=== PATIENT | female | born 1950 | race Caucasian/White ===

== ENCOUNTER → 2018-03-04 11:09 | Outpatient (CLI) | payer MEDICARE, OTHER, SELFPAY ==
--- NOTE | 2018-03-04 11:11 | DI.MG.S_ITS ---
BILATERAL DIGITAL SCREENING MAMMOGRAM 3D/2D WITH CAD: 03/04/2018 CLINICAL: Routine screening. Family history of breast cancer. Comparison is made to exams dated: 01/08/2017 mammogram, 12/29/2015 mammogram, and 12/02/2014 mammogram - [facility]. There are scattered fibroglandular elements in both breasts. Current study was also evaluated with a Computer Aided Detection (CAD) system. There is a mass in the right breast lower inner aspect middle depth. There is architectural distortion associated with the mass. No other significant masses, calcifications, or other findings are seen in either breast. IMPRESSION: INCOMPLETE: NEEDS ADDITIONAL IMAGING EVALUATION The mass with architectural distortion in the right breast is indeterminate. Additional views with possible ultrasound are recommended. This exam was interpreted at Station ID: [id number]. NOTE: For mammograms, a report in lay terms will be sent to the patient. Approximately 15% of breast malignancies will not be visualized mammographically. In the management of a palpable breast mass, a negative mammogram must not discourage biopsy of a clinically suspicious lesion. Electronically Signed By: Garrett Navarro M.D. ecl/:03/04/2018 23:29:15 letter sent: Additional Imaging Needed ACR BI-RADS Category 0: Incomplete [id number]
== END ==
PROVIDERS: Family Provider Family Medicine; PCP Family Medicine; Visit Provider Family Medicine
DX: Z12.31 Encounter for screening mammogram for malignant neoplasm of breast (principal); Z80.3 Family history of malignant neoplasm of breast
CPT/HCPCS: 77063; 77067

== ENCOUNTER → 2018-03-13 09:09 | Outpatient (CLI) | payer MEDICARE, OTHER, SELFPAY ==
[2018-03-13 10:03] LABS: Add Manual Diff / Slide Review NO; Basophils Percent Auto 0.4 % (0-2); Eosinophils Percent Auto 3.8 % (2-4); Hematocrit 37.5 % (36-46); Hemoglobin 12.9 g/dL (12.0-16.0); Lymphocytes Percent Auto 16.2 % (25-40); Mean Corpuscular HGB Conc 34.4 % (30-36); Mean Corpuscular Hemoglobin 31.8 PG (26-34); Mean Corpuscular Volume 92.6 fL (80-100); Monocytes Percent Auto 7.8 % (3-14); Neutrophils Absolute Auto 6500 /uL (3000-5900); Neutrophils Percent Auto 71.8 % (50-75); Platelet Count 199 X10^3/uL (150-400); Red Blood Cell Count 4.05 X10^6/uL (4.0-5.2); Red Cell Distribution Width 13.4 % (11.6-14.8); White Blood Cell Count 9.1 X10^3/uL (4.5-11.0)
[2018-03-13 10:10] LABS: Appearance Urine UA CLEAR; Bilirubin Urine UA NEGATIVE (NEGATIVE); Color Urine UA YELLOW; Glucose Urine UA NEGATIVE (Normal); Ketones Urine UA NEGATIVE (NEGATIVE); Leukocyte Esterase Urine UA 1+ (NEGATIVE); Nitrite Urine UA Negative (Negative); Occult Blood Urine UA NEGATIVE (Negative); Protein Urine UA NEGATIVE (Negative); Urobilinogen Urine UA 0.2 E.U./dL (0.2); pH Urine UA 5.5 (4.5-8.0)
[2018-03-13 10:12] LABS: Bacteria Urine None Seen; RBC Urine None Seen (0-5/HPF)
[2018-03-13 10:17] LABS: Culture Indicated Urine Cult Not Indicated; Squamous Epithelial Cell Urine 1-5 /HPF; WBC Urine 0-1/HPF (0-5/HPF)
[2018-03-13 10:51] LABS: Alanine Aminotransferase 25 IU/L (9-52); Albumin 4.3 g/dL (3.5-5.0); Albumin Globulin Ratio 1.4 (1.0-2.8); Alkaline Phosphatase 51 U/L (38-126); Aspartate Aminotransferase 24 IU/L (14-36); Bilirubin Total 0.8 mg/dL (0.2-1.3); Blood Urea Nitrogen 35 mg/dL (7-17); Calcium 9.4 mg/dL (8.4-10.2); Carbon Dioxide 28 mmol/L (22-32); Chloride 101 mmol/L (98-107); Cholesterol 224 mg/dL (140-199); Estimated Glomerular Filt Rate 55.1 mL/min (>60); Glucose 120 mg/dL (80-110); HDL Cholesterol 53 mg/dL (40-60); HEMOLYSIS < 15 (0-50); LDL Cholesterol Calculated 150 mg/dL (<100); Potassium 4.6 mmol/L (3.4-5.1); Sodium 140 mmol/L (137-145); Total Protein 7.3 g/dL (6.3-8.2); Triglycerides 106 mg/dL (35-150)
[2018-03-13 11:22] LABS: Thyroid Stimulating Hormone 2.24 uIU/mL (0.47-4.68)
== END ==
PROVIDERS: PCP Family Medicine; Visit Provider Family Medicine
DX: I10 Essential (primary) hypertension (principal); Z51.81 Encounter for therapeutic drug level monitoring
CPT/HCPCS: 36415; 80053; 80061; 81003; 81015; 84443; 85025

== ENCOUNTER → 2018-03-26 13:17 | Outpatient (CLI) | payer MEDICARE, OTHER, SELFPAY ==
--- NOTE | 2018-03-26 13:22 | DI.MG.S_ITS ---
UNILATERAL RIGHT DIGITAL DIAGNOSTIC MAMMOGRAM 3D/2D WITH ADDITIONAL VIEWS: 03/26/2018 CLINICAL: Additional evaluation requested from prior study. Comparison is made to exams dated: 03/04/2018 mammogram, 01/08/2017 mammogram, and 12/29/2015 mammogram - [facility]. There are scattered fibroglandular elements in right breast. There is 1.4 cm oval equal density mass with a spiculated margin in the right breast at 6 o'clock anterior depth. No other significant masses or calcifications are seen in the breast. IMPRESSION: INCOMPLETE: NEEDS ADDITIONAL IMAGING EVALUATION The 1.4 cm oval equal density mass in the right breast is indeterminate. An ultrasound is recommended. This exam was interpreted at Station ID: [id number]. NOTE: For mammograms, a report in lay terms will be sent to the patient. Approximately 15% of breast malignancies will not be visualized mammographically. In the management of a palpable breast mass, a negative mammogram must not discourage biopsy of a clinically suspicious lesion. Electronically Signed By: Jarad roberson/norma:03/26/2018 14:15:46 letter sent: Need Ultrasound ACR BI-RADS Category 0: Incomplete [id number]
--- NOTE | 2018-03-26 13:22 | DI.US.S_ITS ---
LIMITED ULTRASOUND OF RIGHT BREAST AND AXILLA: 03/26/2018 CLINICAL: Patient returns today to evaluate a density in the right breast. Comparison is made to exams dated: 03/26/2018 mammogram, 03/04/2018 mammogram, 01/08/2017 mammogram, 12/29/2015 mammogram, and 12/02/2014 mammogram - [facility]. Color flow and real-time ultrasound of the right breast 6 o'clock, and axilla regions were performed on the areas of interest. There is 0.7 cm x 0.5 cm x 1.1 cm oval mass with a spiculated margin in the right breast at 6 o'clock anterior depth. This oval mass is hypoechoic with a hyperechoic rim and posterior acoustic shadowing. This correlates with mammography findings. Color flow imaging demonstrates that there is no vascularity present. No abnormalities were seen sonographically in the right axilla. IMPRESSION: HIGHLY SUGGESTIVE OF MALIGNANCY The 0.7 cm x 0.5 cm x 1.1 cm oval mass in the right breast is highly suggestive of malignancy. An ultrasound guided biopsy is recommended. The findings were discussed with the patient at the conclusion of the study by Dr. Moody. This exam was interpreted at Station ID: [id number]. Electronically Signed By: Jarad roberson/:03/27/2018 07:09:29 Entry: - 03/27/2018 07:09:29 letter sent: Biopsy Required Ultrasound BI-RADS: 5 Highly suggestive of malignancy
== END ==
PROVIDERS: PCP Family Medicine; Visit Provider Family Medicine
DX: R92.8 Other abnormal and inconclusive findings on diagnostic imaging of breast (principal); N63.10 Unspecified lump in the right breast, unspecified quadrant
CPT/HCPCS: 76642; 77065; G0279

== ENCOUNTER → 2018-04-08 13:34 | Outpatient (CLI) | payer MEDICARE, OTHER, SELFPAY ==
--- NOTE | 2018-04-08 | PATH_ITS ---
[facility] Accession Number: [id number] . 01 Material submitted: . RIGHT BREAST MASS . 01 Clinical history: . A: RIGHT BREAST MASS 5:30 3CM FROM NIPPLE . 02 Diagnosis: Right Breast Needle Core Biopsy, 5:30, 3 cm from the Nipple: Infiltrating ductal carcinoma with the following features: 1. Tumor grade ([place]) Grade 1 (score 4 of 9). Nuclear grade: Intermediate (score 2 of 3). Mitotic score: Low (1 of 3). Tubular differentiation: Prominent (score 1 of 3). 2. Largest single linear extent of tumor: 0.8 cm with all tissue cores involved with tumor. 3. Ductal carcinoma in situ: Not identified. 4. Lymph/vascular invasion: Not identified. 5. Hormone receptor studies: Ordered by immunohistochemistry, to be reported by addendum. . . COMMENT: Case reviewed by Dr. Jean-Pierre Whyte who agrees with the diagnosis. . The results of this evaluation are telephoned to the office of Dr. William Moody at 2:30 p.m. on 04/09/2018. MRV/04/09/2018 . 02 Electronically signed: . Josh Bravo MD, Pathologist NPI- [id number] . 01 Gross description: . Received one formalin-filled container labeled with the patient's name and designated right breast mass 5:30, 3 cm from nipple. The specimen is received with a plastic filter in the container, sample loose in container, and consists of multiple dark yellow-campbell portions of tissue which aggregate to 1.0 x 0.6 x 0.3 cm. The specimen is filtered, wrapped, and entirely submitted in one cassette. Collection date: 04/08/2018. Collection time per container: 14:45. Total fixation time: 12 hours, up to 24. ([id number]) /FRR . 02 Pathologist provided ICD-10: C50.311 . 02 CPT . 087212 Performed at: 01 [facility] [address] [id number] MD Jarad Montoya MD Phone: [phone] Performed at: 02 [facility] [address] [place] [id number] MD Familia Whyte MD Phone: [phone]
--- NOTE | 2018-04-08 13:36 | DI.MG.S_ITS ---
UNILATERAL RIGHT DIGITAL DIAGNOSTIC MAMMOGRAM 3D/2D POST-NEEDLE BIOPSY: 04/08/2018 CLINICAL: Post clip placement. Comparison is made to exams dated: 03/26/2018 mammogram and 03/04/2018 mammogram - [facility]. There are scattered fibroglandular elements in right breast. There is a marker clip in the appropriate position in the right breast at 5 o'clock anterior depth. This marker clip placement is at the biopsy site. IMPRESSION: POST PROCEDURE MAMMOGRAM FOR MARKER PLACEMENT There was a successful marker clip placement in the right breast anterior depth. This exam was interpreted at Station ID: [id number]. NOTE: For mammograms, a report in lay terms will be sent to the patient. Approximately 15% of breast malignancies will not be visualized mammographically. In the management of a palpable breast mass, a negative mammogram must not discourage biopsy of a clinically suspicious lesion. Electronically Signed By: William Moody M.D. sdh/:04/08/2018 17:09:15 ACR BI-RADS Category Post-procedure mammogram for marker placement
--- NOTE | 2018-04-08 13:36 | DI.US.S_ITS ---
ULTRASOUND GUIDED BIOPSY RIGHT BREAST USING VACUUM DEVICE WITH MARKING DEVICE INSERTED AND POST MAMMOGRAPHIC IMAGIN04/08/2018 CLINICAL: Right breast mass. PATIENT CONSENT: Risks (minor bleeding, infection, vasovagal reaction and repeat procedure), benefits and alternatives were explained to the patient and written informed consent was obtained. Correlation is made to exams dated: 03/26/2018 ultrasound, 03/26/2018 mammogram, and 03/04/2018 mammogram - [facility]. An ultrasound guided biopsy using real-time ultrasound was performed for the concerning circumscribed lobulated solid mass located in the right breast at 6 o'clock middle depth. This was described on the previous ultrasound report. The skin was prepped in the usual manner. Local anesthetic was administered to the access site. A skin samantha was made in the breast. The abnormality was approached from the lateral aspect. A 13 gauge biopsy needle was placed adjacent to the abnormality under ultrasound guidance. Once the needle was documented to be in the correct location, five specimens were obtained using the Mammotome biopsy system. The patient received additional local anesthetic during the procedure. A clip was inserted into the biopsy cavity. A sterile dressing was applied to the access site. Post procedure mammographic imaging demonstrates the location device at the targeted area. The specimens were sent to the laboratory for pathological analysis. IMPRESSION: ULTRASOUND GUIDED BIOPSY MALIGNANT Ultrasound guided biopsy of the solid mass in the right breast at 6 o'clock middle depth was successful. Pathology indicates malignant invasive ductal carcinoma (ID). Pathology results are concordant with imaging findings. This exam was interpreted at Station ID: [id number]. michelle Angel M.D., M.D./norma:04/16/2018 11:44:58
== END ==
PROVIDERS: Family Provider Family Medicine; PCP Family Medicine; Visit Provider Family Medicine
DX: C50.311 Malignant neoplasm of lower-inner quadrant of right female breast (principal)
CPT/HCPCS: 19083; 77065; 88305; 88341; 88342; G0279

== ENCOUNTER 2018-05-27 07:36 | Day surgery (SDC) | payer MEDICARE, OTHER, SELFPAY ==
[2018-05-21 14:25] VITALS: BMI 38.9
[2018-05-27] VITALS (10 sets, daily range): BP systolic 102–133; BP diastolic 52–71; PULSE 54–66; RESP 9–16; TEMP 35.9–36.3; O2SAT 84–98; BMI 38.9
--- NOTE | 2018-05-27 | DI.US.S_ITS ---
WIRE LOCALIZATION RIGHT BREAST: 05/27/2018 CLINICAL: Pre-op wire localization. Correlation is made to exams dated: 04/08/2018 ultrasound biopsy, 04/08/2018 mammogram, 03/26/2018 ultrasound, 03/26/2018 mammogram, and 03/04/2018 mammogram - [facility]. A wire localization was performed for the marker clip located in the right breast at 5 o'clock posterior depth. The skin was prepped in the usual manner. Local anesthetic was administered to the access site. The localization was approached from the lateral aspect. A wire was inserted into the targeted area. IMPRESSION: WIRE LOCALIZATION Wire localization for the marker clip in the right breast at 5 o'clock posterior depth was successful. A specimen radiograph is recommended. This exam was interpreted at Station ID: [id number]. Willie merritt/:05/27/2018 13:57:46
--- NOTE | 2018-05-27 | DI.MG.S_ITS ---
SPECIMEN RIGHT BREAST: 05/27/2018 CLINICAL: Breast cancer. Correlation is made to exams dated: 05/27/2018 mammogram, 04/08/2018 ultrasound biopsy, 04/08/2018 mammogram, and 03/26/2018 mammogram - [facility]. A surgical specimen was imaged for the previous biopsy site located in the right breast at 6 o'clock anterior depth. IMPRESSION: SPECIMEN The imaged specimen includes a biopsy clip and the distal portion of the localization wire. Waiting for pathology results. A final report will be issued when these become available. This exam was interpreted at Station ID: [id number]. Willie merritt/:05/27/2018 17:32:53
--- NOTE | 2018-05-27 | PATH_ITS ---
[facility] Accession Number: [id number] . 01 Material submitted: . PART A: RIGHT AXILLARY SENTINEL NODE #1 PART B: RIGHT AXILLARY SENTINEL NODE #2 PART C: RIGHT BREAST . 02 Diagnosis: A-B: Right Axillary [place] Lymph Node, #1, #2, Excisions: 3 [place] lymph nodes negative for metastatic carcinoma. . C. Right Breast, Excision: Invasive ductal carcinoma. Please see CAP summary below. . CAP CANCER CASE SUMMARY PROCEDURE: Excision SPECIMEN LATERALITY: Right TUMOR SITE: 5:30 O'Clock . TUMOR SIZE: 1.5 CM HISTOLOGIC TYPE: Invasive carcinoma of no special type (ductal, not otherwise specified) HISTOLOGIC GRADE: (ARMAAN HISTOLOGIC SCORE) Glandular/Tubular differentiation: Score 2 Nuclear Pleomorphism: Score 2 Mitotic Rate: Score 1 Overall Grade: Grade 1 TUMOR FOCALITY: Single focus of invasive carcinoma. DUCTAL CARCINOMA IN SITU: Present, Positive for extensive intraductal component (EIC) -Size (Extent) of DCIS: 1.8 CM -Architectural patterns: Cribriform, [place] -Nuclear grade: Grade 2-3 (Intermediate to high grade) -Necrosis: Present, focal and central LOBULAR CARCINOMA IN SITU: No LCIS in specimen. . MARGINS Invasive Carcinoma Margins: Uninvolved by invasive carcinoma. -Distance from Closest Margin: 1 MM Anterior. DCIS Margins: Uninvolved by DCIS -Distance from Closest Margin: 0.5 MM Posterior, 1 MM Anterior. . REGIONAL LYMPH NODES: Uninvolved by Tumor Cells Number of Lymph Nodes Examined: 3 Number of [place] Lymph Nodes Examined: 3 . TREATMENT EFFECT: No known presurgical therapy. . LYMPHOVASCULAR INVASION: Not Identified. DERMAL LYMPHOVASCULAR INVASION: No skin present. . PATHOLOGIC STAGE CLASSIFICATION (pTNM, AJCC 8th Edition) Primary Tumor: pT1c Regional Lymph Nodes: pN0(sn) . ADDITIONAL PATHOLOGIC FINDINGS: Biopsy site changes. . MICROCALCIFICATIONS: Present in association with DCIS and invasive carcinoma. . . ANCILLARY STUDIES: Biomarkers Performed Previously on Case: [id number] -Estrogen Receptor (ER) Status: Positive, moderate to strong, >95% of cells. -Progesterone Receptor (PgR) Status: Positive, moderate to strong, 15-20% of cells. -HER2 (by immunohistochemistry): Positive (Score 3+). [facility]05/30/2018 . 02 Comment: The size of the invasive carcinoma is based on its presence across 5 tissue slices, each 0.3 cm thick. The size of the DCIS is based on its presence across 6 tissue slices, each 0.3 cm thick. . 02 Electronically signed: . Cyndee Garcia MD, Pathologist NPI- [id number] . 01 Gross description: . (A) Received in formalin, labeled R axillary sentinel node #1, count [id number], are multiple pieces of adipose tissue (4.6 x 2.4 x 0.5 cm in aggregate) containing a lymph node (3.0 x 1.8 x 0.4 cm). The lymph node is serially sectioned and entirely submitted in cassettes A1-A3. The remaining adipose tissue is entirely submitted in cassette A4. (B) Received in formalin, labeled R axillary sentinel node #2, count [id number], is a piece of adipose tissue (4.2 x 1.4 x 0.2 cm) containing two lymph nodes (0.8 x 0.6 x 0.2 cm and 1.6 x 0.7 x 0.6 cm). The lymph nodes are serially sectioned and entirely submitted in cassettes B1 and B2, respectively. The remaining adipose tissue is entirely submitted in cassette B3. (C) Received in formalin, labeled R breast lumpectomy, SS. deep, long s. lateral, short s. superior, is a piece of breast tissue (2.5 cm AP, 7.7 cm SI, 6.2 cm ML) with no overlying skin. The specimen is oriented with three black sutures (double-deep, long-lateral, short-superior). A localization wire enters the superior central anterior aspect. The specimen is serially sectioned SI into twenty-two slices with the superior and inferior resection margins as slices #1 and #22, respectively. A sarmiento-white firm irregular mass (1.5 x 1.2 x 0.9 cm) involving slices #4 - #7 is less than 0.1 cm from the anterior, 1.5 cm from the posterior, 0.9 cm from the superior, 5.1 cm from the inferior, 2.1 cm from the medial, and 2.2 cm from the lateral resection margins. The localization wire ends adjacent to the mass within slice #7. A biopsy marker is identified within the mass in slice #5. A sarmiento-white firm nodule (0.2 x 0.1 x 0.1 cm) is identified within slice #3 less than 0.1 cm from the posterior resection margin. A sarmiento-white firm irregular fibrous area (0.7 x 0.6 x 0.5 cm) is identified within slices #4-#6 1.8 cm from the mass. A focally hemorrhagic area (2.5 x 1.8 x 0.7 cm) is identified adjacent to the mass within slices #4-#7 and continues on and involves slices #8 and #9. The remaining breast tissue is fatty with no other nodules, masses or lesions identified. Ink code: purple-anterior; yellow-posterior; black-superior; orange- inferior; green-medial; blue-lateral. Section code: (C1) superior resection margin, perpendicularly sectioned, inbound sales representative; (C2-C3) slice #3, tissue adjacent to mass, bisected and entirely submitted ML; (C4-C5) slice #4, bisected and entirely submitted ML; (C6-C8) slice #5, tissue containing biopsy marker, trisected and entirely submitted ML; (C9-C10) slice #6, trisected ML, lateral two-thirds submitted; (C11-C13) slice #7, tissue involving the end of the localization wire, trisected and entirely submitted ML; (C14-C16) slice #8, tissue adjacent to mass, trisected and entirely submitted ML; (C17) slice #9, trisected ML, middle third submitted; (C18) slice #15, bisected ML, lateral half submitted; (C19) inferior resection margin, perpendicularly sectioned, entirely submitted. Note: The specimen was reviewed by Dr. Maria Fernanda Bauer. Additional sections: (C20) remaining superior resection margin, perpendicularly sectioned, superior resection margin is now entirely submitted; (C21-C22) slice #2, bisected and entirely submitted ML; (C23, C24) slice #9, remaining tissue submitted ML, slice #9 is now entirely submitted. (JM:[id number]) . . Note: Approximate total fixation time in formalin for all specimens-33 hours and 30 minutes calculated using a collection date of 05/27/2018 with no collection time given. (JM:cmc80 [id number]) /[facility] . 02 Pathologist provided ICD-10: C50.911 . 02 CPT . 266370, 225354, 369766 Performed at: 01 [facility] [address] [address] [address], [place], [place] [id number] MD Jarad Montoya MD Phone: [phone] Performed at: 02 [facility] [address] [place], [place] [id number] MD Cyndee Garcia MD Phone: [phone]
--- NOTE | 2018-05-27 | DI.RAD.S_ITS ---
PROCEDURE: XR CHEST 1V INDICATIONS: PORT A CATH TECHNIQUE: One view of the chest was acquired. COMPARISON: None. FINDINGS: Surgical changes and devices: Port-A-Cath projects to the atriocaval junction via a left subclavian approach. Presence of the T-tube noted. Lungs and pleura: No pleural effusions or pneumothorax. Lungs are clear. Mediastinum: Mediastinal contours appear normal. Heart size is normal. Bones and chest wall: No suspicious bony lesions. Overlying soft tissues appear unremarkable. IMPRESSION: Tip of Port-A-Cath projects to the atriocaval junction. Dictated by: Savana Waite MD, PhD on 05/27/2018 at 12:01 Approved by: Savana Waite MD, PhD on 05/27/2018 at 12:02
--- NOTE | 2018-05-27 | DI.RAD.S_ITS ---
PROCEDURE: XR CHEST 1V INDICATIONS: PORT A CATH PLACEMENT TECHNIQUE: One view of the chest was acquired. COMPARISON: [facility], , XR CHEST 1V, 05/27/2018, 11:16. FINDINGS: Surgical changes and devices: Port-A-Cath projects to the distal SVC via a left subclavian approach. Lungs and pleura: No pleural effusions or pneumothorax. Lungs are clear. Mediastinum: Mediastinal contours appear normal. Heart size is enlarged. Bones and chest wall: No suspicious bony lesions. Overlying soft tissues appear unremarkable. IMPRESSION: Status post left chest wall Port-A-Cath placement. Dictated by: Savana Waite MD, PhD on 05/27/2018 at 14:34 Approved by: Savana Waite MD, PhD on 05/27/2018 at 14:36
[2018-05-27] MEDS: LACTATED RINGERS 1,000 ML 100 ML IV ×2 (07:59→12:43)
--- NOTE | 2018-05-27 08:00 | DI.NM.S_ITS ---
PROCEDURE: NM SENTINEL NODE W IMAGING RADIOPHARMACEUTICAL: 0.5-1.0 mCi Millipore filtered Tc-99m sulfur colloid. INDICATIONS: localization of sentinel node TECHNIQUE: The area around the nipple was prepped and draped in a sterile fashion. Tc-99m sulfur colloid was injected intra-dermally in the outer edge of the areola in the right breast. Images were obtained subsequently. A body contour outline was obtained. FINDINGS: There is/are 3 lymph node(s) in the ipsilateral axilla IMPRESSION: Administration of radiotracer into the right breast periareolar region for intra-operative sentinel lymph node localization. Dictated by: Willie Webster M.D. on 05/27/2018 at 13:06 Approved by: Willie Webster M.D. on 05/27/2018 at 13:08
--- NOTE | 2018-05-27 09:28 | DI.MG.S_ITS ---
UNILATERAL RIGHT DIGITAL DIAGNOSTIC MAMMOGRAM: 05/27/2018 CLINICAL: Breast cancer. Comparison is made to exams dated: 04/08/2018 ultrasound biopsy, 04/08/2018 mammogram, 03/26/2018 mammogram, and 03/04/2018 mammogram - [facility]. There are scattered fibroglandular elements in right breast. There is a wire in the appropriate position in the right breast at 6 o'clock anterior depth. There is a biopsy clip associated with the wire. IMPRESSION: POST PROCEDURE MAMMOGRAM FOR MARKER PLACEMENT Successful wire localization of marker clip This exam was interpreted at Station ID: [id number]. NOTE: For mammograms, a report in lay terms will be sent to the patient. Approximately 15% of breast malignancies will not be visualized mammographically. In the management of a palpable breast mass, a negative mammogram must not discourage biopsy of a clinically suspicious lesion. Electronically Signed By: Willie merritt/:05/27/2018 17:29:42 ACR BI-RADS Category Post-procedure mammogram for marker placement
--- NOTE | 2018-05-27 10:06 | PM.PREOP ---
Pre-operative Note Interval Note Pre-op Check: Yes History & Physical Reviewed by Physician and Yes Exam Performed Changes: No H&P completed within 30 days and has changed as indicated here:: Patient seen and examined in preoperative area. She has been marked appropriately for surgery. Her needle localization and sentinel lymph node localization studies have been reviewed personally. Proceed with port placement, right breast lumpectomy, and right axillary sentinel lymph node biopsy as planned today.
[2018-05-27] MEDS: CEFAZOLIN 2 GM/100 ML FROZ.PIGGY IV (10:30)
--- NOTE | 2018-05-27 11:03 | SUR.OPER ---
Supine on padded OR bed, head on pillow, right arm secured on padded arm boards at <90 degrees abduction, left arm is tucked, towel roll between the shoulders, legs uncrossed, safety belt at thigh, tape over blanket over lower legs.
[2018-05-27] MEDS: LIDOCAINE 1% 20 ML INJ INJ (11:23)
[2018-05-27] MEDS: LIDOCAINE 1% W/EPI INJ 20 ML INJ (11:23)
[2018-05-27] MEDS: BUPIVACAINE 0.5% (PF) VIAL 30 ML INJ (11:23)
--- NOTE | 2018-05-27 13:42 | PM.OP.1 ---
Operative Date/Time/Diagnoses Date of procedure: 05/27/18 Time of procedure: 13:42 Pre-op diagnosis: Right breast cancer Post-op diagnosis: same Procedure & Clinicians Procedure: 1. Insertion of tunneled central venous port device via left subclavian approach 2. Right axillary sentinel lymph node biopsy 3. Right breast wire localization lumpectomy Same procedure as scheduled: Yes Indications: 68-year-old female who presented with abnormal right mammogram. Needle biopsy confirmed invasive breast cancer. Features were noted to be aggressive type thereby necessitating chemotherapy. She requires long-term IV access for such treatment. In addition, it was recommended she undergo lumpectomy with right axillary sentinel lymph node biopsy for staging and treatment purposes. Surgeon: Bret Herrmann Click Yes if Unassisted: Yes Anesthesia Type: General Operative Notes Findings: 1. Port device in good position with tip in the superior vena cava under fluoroscopic guidance via left subclavian approach 2. Right breast lumpectomy specimen containing complete wire localization device and previously placed biopsy clip 3. Radioactive sentinel lymph nodes as below Specimens: 1. Right axillary sentinel lymph node 1 with total count of 29,232 2. Right axillary sentinel lymph node 2 with total count of 3390 3. Right breast lumpectomy Closure Type: primary Specimen(s): other (See above under findings) Implants & Drains: None Estimated Blood Loss (mL): 25 Blood products transfused: none Procedure in detail: After obtaining informed consent the patient was brought to the operating room placed supine on the table. Preoperatively she had undergone right breast wire localization procedure as well as right axillary lymphoscintigraphy per the radiology department. Please see their report for further details. Images were reviewed preoperatively. After satisfactory induction of anesthesia a SCOAP time-out was performed per standard protocol. I personally prepped and draped the patient in the usual sterile fashion taking great care to avoid dislodging the wire localization device in the right breast. Attention was initially turned to placement of the left Port-A-Cath device. Patient was placed in Trendelenburg position. Area was anesthetized with 1% lidocaine with 100,000 epinephrine for postoperative analgesia just below the left clavicle. Introducer needle was then placed percutaneously deep to the clavicle and the left subclavian vein was accessed on the 1st attempt. However, the guidewire would not thread even with fluoroscopic assistance. Therefore this was abandoned and a 2nd approach was employed whereby the left subclavian vein was again accessed successfully. A 0.035 inch glide wire was then introduced and was noted to thread easily into the right heart. Patient was returned supine and a transverse incision was created on the left chest wall with 15 scalpel blade several cm below the guidewire insertion site. Bovie was used to achieve hemostasis and carried the dissection down to the chest wall. Should note the patient is moderately obese and her body habitus necessitated a deeper dissection in order to find a stable position for the port device on the chest wall. Hemostasis was verified and the port was attached to the catheter with the locking mechanism and noted to flush easily with the straight Dumont needle using saline flush. Port was placed in the subcutaneous pocket and secured to the chest wall with interrupted 2 0 Prolene suture. Port was brought along the subcutaneous tunnel to exit at the guidewire insertion site using the tunneling device. Once again hemostasis was verified. Under fluoroscopic visualization the adequate length of the catheter was estimated and then cut at approximately 23 cm from the hub. Under sterile Seldinger technique using fluoroscopic visualization the venous dilator and sheath were placed over the wire into the superior vena cava. The dilator and wire were removed. Catheter was then threaded distally through the sheath and the sheath was removed. Catheter was noted to be in good position without any abnormal curvatures. Port was accessed with a straight Dumont needle under direct visualization and noted to aspirate and flush easily with saline. Wound was irrigated noted to be hemostatic. Three 0 Vicryl interrupted suture was then placed to reapproximate the subcutaneous tissue. Four 0 Monocryl suture was then placed at the skin incision at the guidewire insertion site and then used in a running subcuticular fashion to close the skin incision over the port itself. Straight Dumont needle was then used to access the port percutaneously, and once again the port aspirated and flushed easily. Port was accessed yet another time percutaneously with a straight Dumont needle and flushed with 2000 units of heparin. Dermal adhesive was placed over the incisions and this portion of the procedure was completed Attention was turned to the right axilla. Gamma probe was used to obtain radioactive counts and a skin incision was created transversely in an existing skin crease in the axilla with 10 scalpel blade. Bovie was used to achieve hemostasis and carried the dissection down to the subcutaneous tissue to the axillary fat pad. Exposure was achieved with the self-retaining retractor as well as Leal retractors. Again, the patient's body habitus made this somewhat of a technically demanding procedure as the gamma probe was used to guide sharp dissection with Metzenbaum scissors. [place] lymph nodes were found along the lateral chest wall as anticipated. Hemoclips were used to achieve hemostasis and control lymphatics. Lymph nodes were then removed, radioactive counts were taken as above, and specimens were sent for permanent section. After obtaining all radioactive lymph nodes there was no other significant radio activity in the axilla noted. Wound was irrigated noted to be hemostatic. Subcutaneous tissue was reapproximated with interrupted 3 0 Vicryl suture, and the skin was closed in a running subcuticular fashion with 4 0 Monocryl suture. Attention was then turned to the right breast lumpectomy. Curvilinear incision was designed and created with 10 scalpel blade just inferior to the areola. Incision was created midway between the border of the areola and the guidewire insertion site. The wire was actually relatively low in the lower outer quadrant region. Meticulous sharp dissection with Metzenbaum scissors was employed along the subcutaneous plane until the wire was encountered. Wire was secured to the underlying breast tissue with an Allis clamp. Wire was then brought subcutaneously to exit at the skin incision taking great care not to dislodge the device. Bovie was used to create hemostasis in and performed a generous lumpectomy down to just above the level of the chest wall along the deep margin. Once the specimen was liberated it was oriented then sent back to Radiology for examination. Again, findings are as above with the wire and clip noted to be within the specimen. Wound was irrigated and hemostasis achieved with the Bovie. Once hemostasis was verified the subcutaneous tissue was reapproximated with interrupted 3 0 Vicryl suture. Skin was closed in running subcuticular fashion with 4 Monocryl suture. Dermal adhesive was applied to the breast incision as well as the right axillary incision. Local anesthesia was also infiltrated into the areas for postoperative analgesia. Anesthesia was reversed and patient extubated in the operating room. She was taken recovery in stable condition. Postoperative chest x-ray is not immediately available since the portable devices are not functional at the moment. She will go to Radiology Department for such following recovery from anesthesia. Complications: none Condition: stable Disposition: PACU Plan for aftercare: 1. Discharge to home 2. Follow up in surgery Clinic in 2 weeks
== END 2018-05-27 16:20 | disposition home or self-care (01) ==
PROVIDERS: PCP Family Medicine; Visit Provider Surgery
PROC: (CPT 19301; principal; 2018-05-27 11:00)
PROC: (CPT 19301; 2018-05-27 11:00)
DX: C50.911 Malignant neoplasm of unspecified site of right female breast (principal); Z85.43 Personal history of malignant neoplasm of ovary; E78.5 Hyperlipidemia, unspecified; E66.9 Obesity, unspecified; I10 Essential (primary) hypertension; Z17.0 Estrogen receptor positive status [ER+]; Z45.2 Encounter for adjustment and management of vascular access device
CPT/HCPCS: 19301; 36561; 38500; 19285; 71045; 76000; 76098; 77065; 78195; 88307; A9541; C1788; J0690; J1100; J1644; J2405; J2704; J3010

== ENCOUNTER → 2018-06-11 10:38 | Outpatient (CLI) | payer MEDICARE, OTHER, SELFPAY ==
[2018-06-11 12:15] LABS: Specimen Label BRAC KIT
== END ==
PROVIDERS: PCP Family Medicine; Visit Provider Surgery
DX: Z13.79 Encounter for other screening for genetic and chromosomal anomalies (principal)
CPT/HCPCS: 36415

== ENCOUNTER → 2018-06-18 14:49 | Outpatient (CLI) | payer MEDICARE, OTHER, SELFPAY ==
--- NOTE | 2018-06-18 14:51 | DI.ECHO.S_ITS ---
[facility]---------+ [facility] +---------+ : : [address] : : : : [id number] : : : : Phone: [phone] : : [phone] +---------+ Echocardiogram Report + + :Name: ULISES BROWN Study Date: 06/18/2018 Height: 64 in : :[facility] Weight: 227 lb: : Gender: Female BSA: 2.1 m2 : :: 1950 Age: 68 yrs : :Reason For Study: malignant neoplasm : : Performed By: Bettie Collins : :Referring: ANGELIQUE KHANNA : + + Interpretation Summary The left ventricle is normal in size, wall thickness, and systolic function without any focal wall motion abnormalities with the ejection fraction grossly estimated to be 60-65%. Diastolic parameters suggest a relaxation abnormality of the left ventricle, consistent with probable normal filling pressures. The right ventricle is not well visualized but grossly appears normal in size with probable normal systolic function. Pulmonary artery pressures cannot be estimated because of the lack of a measurable TR jet velocity but the IVC suggests a CVP of around 3 mmHg. Both atria are normal in size. There is no significant valvular heart disease. The ascending aorta is mildly enlarged. There is no pericardial or pleural effusion. Procedure: A two-dimensional transthoracic echocardiogram with color flow and Doppler was performed. The study quality was technically adequate. There is no prior echocardiogram noted for this patient. Patient was having a hard time tolerating the exam. The heart rate ranged between 59-65 bpm during the study. Left Ventricle: The left ventricle is normal in size, wall thickness, and systolic function without any focal wall motion abnormalities. The ejection fraction is estimated to be 60-65%. Diastolic parameters suggest a relaxation abnormality of the left ventricle, consistent with probable normal filling pressures. Right Ventricle: The right ventricle is not well visualized. The right ventricle grossly appears normal in size with probable normal systolic function. Atria: Both atria are normal in size. There is no Doppler evidence for an interatrial shunt. Mitral Valve: There is mild mitral annular calcification. The mitral valve leaflets appear normal. There is no evidence of stenosis, fluttering, or prolapse. There is trace mitral regurgitation. Aortic Valve: The aortic valve is not well visualized. The aortic valve is grossly normal. The aortic valve opens well. No aortic regurgitation is present. Tricuspid Valve: The tricuspid valve is normal in structure and function. There is a trace or physiologic amount of tricuspid regurgitation. Pulmonary artery pressures cannot be estimated because of the lack of a measurable TR jet velocity but the IVC suggests a CVP of around 3 mmHg. Pulmonic Valve: The pulmonic valve is normal in structure and function. There is a trace or physiologic amount of pulmonic regurgitation. There is no significant valvular heart disease. Great Vessels: The aortic root is normal size. The ascending aorta is mildly enlarged. The aortic arch is normal in size. The pulmonary artery is normal size. The IVC is of normal diameter and collapses greater than 50% with a sniff. This suggests a low right atrial pressure of 3 mm Hg. Pericardium/ Pleura There is no pericardial effusion. There is no pleural effusion. MMode/2D Measurements & Calculations LVIDd: 5.1 cm LVOT diam: 2.1 cm EPSS: 0.48 cm Ao root diam: 2.9 cm IVSd: 0.94 cm asc Aorta Diam: 3.5 cm LVPWd: 0.77 cm LV zhang. diameter/BSA (cm/m^2): 2.5 LA A2 area: 24.4 cm2 RA long axis: 4.5 cm LA A4 area: 18.8 cm2 RA area: 14.1 cm2 LA length (vol): 6.0 cm RA vol: 37.4 ml LA vol: 65.0 ml RA : 18.1 ml/m2 LA vol index: 31.5 ml/m2 IVC diam: 1.4 cm RVD1 (basal): 3.8 cm TAPSE: 2.3 cm Doppler Measurements & Calculations Ao V2 max: 192.0 cm/sec LVOT Max Trevor: 130.5 cm/sec Ao V2 mean: 119.7 cm/sec LV V1 max P.8 mmHg Ao max P.7 mmHg LV V1 VTI: 28.2 cm Ao mean P.8 mmHg ZANDER(I,D): 2.6 cm2 Ao V2 VTI: 35.8 cm ZANDER(V,D): 2.2 cm2 sev ratio: 0.79 ZANDER indexed to BSA (cm^2/m^2): 1.3 MV E max trevor: 65.5 cm/sec MV P1/2t max trevor: 66.3 cm/sec MV A max trevor: 85.6 cm/sec MVA(P1/2t): 3.1 cm2 MV E/A: 0.77 Med Peak E' Trevor: 4.8 cm/sec E/E' med: 13.7 Lat Peak E' Trevor: 5.8 cm/sec E/E' lat: 11.4 E/e' average: 12.6 MV P1/2t: 71.5 msec SV(LVOT): 93.2 ml Reading Physician:YUDELKA
== END ==
PROVIDERS: Family Provider Family Medicine; PCP Family Medicine; Visit Provider Internal Medicine Hematology & Oncology
DX: C50.911 Malignant neoplasm of unspecified site of right female breast (principal); I77.810 Thoracic aortic ectasia
CPT/HCPCS: 93306

== ENCOUNTER → 2018-09-26 09:11 | Outpatient (CLI) | payer MEDICARE, OTHER, SELFPAY ==
--- NOTE | 2018-09-26 09:12 | DI.ECHO.S_ITS ---
[facility]---------+ [facility] +---------+ : : [address] : : : : [id number] : : : : Phone: [phone] : : [phone] +---------+ Echocardiogram Report + + :Name: ULISES BROWN Study Date: 09/26/2018 Height: 64 in : :[facility] Weight: 233 lb : : Gender: Female BSA: 2.1 m2 : :: 1950 Age: 68 yrs BP: 121/56 mmHg: :Reason For Study: Chemotherapy F/U (ICD Code V67.2) : :Ordering Physician: Lucila : :Maria Isabel Performed By: Kya Casas : :Referring: ANGELIQUE KHANNA : + + Interpretation Summary The left ventricle is mildly dilated. This is mildly increased compared to the previous study. The ejection fraction is estimated to be 55-60%. Previous LV ejection fraction 60-65%. Pseudonormalization type of diastolic dysfunction. Previously it was a relaxation type of diastolic dysfunction. The right ventricle is normal size. The right ventricular systolic function is normal. No significant valvular pathology seen. Procedure: A two-dimensional transthoracic echocardiogram with color flow and Doppler was performed in limited views only. The study quality was technically adequate. Comparison is made with the echocardiogram of 06-18-18. The patient was in normal sinus rhythm during the exam. Left Ventricle: The left ventricle is mildly dilated. There is normal left ventricular wall thickness. This is mildly increased compared to the previous study. There is no thrombus. The ejection fraction is estimated to be 55-60%. There are no focal wall motion abnormalities. E/A ratio 1.09 and E to E prime ratio 16.56. Diastolic parameters suggest a pseudonormalization pattern, consistent with probable elevated filling pressures. Right Ventricle: The right ventricle is normal size. The right ventricular systolic function is normal. Atria: The left atrium is moderately dilated. The left atrium has mildly increased in size since the prior echo exam. Mitral Valve: There is mild mitral annular calcification. There is trace mitral regurgitation. Aortic Valve: The aortic valve opens well. No aortic regurgitation is present. Tricuspid Valve: The tricuspid valve is normal in structure and function. The right ventricular systolic pressure is estimated to be at least 30 mmHg based on an estimated right atrial pressure of 3 mm Hg. There is trace tricuspid regurgitation. Pulmonic Valve: The pulmonic valve is not well visualized. Pericardium/ Pleura There is no pericardial effusion. There is no pleural effusion. MMode/2D Measurements & Calculations LVIDd: 5.4 cm LA A4 area: 27.0 cm2 LVIDs: 3.4 cm LA length (vol): 5.7 cm FS: 36.6 % IVSd: 0.82 cm LVPWd: 0.97 cm LV zhang. diameter/BSA (cm/m^2): 2.6 LV sys. diameter/BSA (cm/m^2): 1.7 RA long axis: 5.7 cm RVD1 (basal): 4.0 cm RA area: 23.5 cm2 RVD2 (mid): 3.7 cm RA vol: 82.6 ml RA : 39.6 ml/m2 IVC diam: 1.5 cm RVDd major: 7.3 cm Doppler Measurements & Calculations Ao V2 max: 218.4 cm/sec MV E max patience: 111.9 cm/sec Ao V2 mean: 133.2 cm/sec MV A max patience: 103.1 cm/sec Ao max P.1 mmHg MV E/A: 1.1 Ao mean P.7 mmHg MV dec time: 0.22 sec Ao V2 VTI: 50.9 cm TR max patience: 260.4 cm/sec TR max P.1 mmHg Reading Physician:YUDELKA
== END ==
PROVIDERS: Family Provider Family Medicine; PCP Family Medicine; Visit Provider Internal Medicine Hematology & Oncology
DX: C50.311 Malignant neoplasm of lower-inner quadrant of right female breast (principal); I51.7 Cardiomegaly
CPT/HCPCS: 93307

== ENCOUNTER → 2018-12-29 13:53 | Outpatient (CLI) | payer MEDICARE, OTHER, SELFPAY ==
--- NOTE | 2018-12-29 13:55 | DI.ECHO.S_ITS ---
[facility] +---------+ [facility] +---------+ : : [address] : : : : [id number] : : : : Phone: [phone] : : [phone] +---------+ Echocardiogram Report + + :Name: ULISES BROWN Study Date: 12/29/2018 Height: 64 in : :[facility] Weight: 210 lb : : Gender: Female BSA: 2.0 m2 : :: 1950 Age: 68 yrs BP: 140/60 mmHg: :Reason For Study: Chemotherapy F/U (ICD Code V67.2) : :Ordering Physician: Lucila : :Maria Isabel Performed By: Kya Casas : :Referring: ANGELIQUE KHANNA : + + Interpretation Summary 1) Normal left ventricular thickness, size, wall motion, and systolic function (EF 60-65%). 2) Normal right ventricular size and function. 3) While there is a gradient across the aortic valve, it may be related to hyperdynamic state. Aortic valve opens well and aortic stenosis appears unlikely. 4) Compared to the Echo done 09/26/2018, mild gradient across the aortic valve is present on this study. Procedure: A two-dimensional transthoracic echocardiogram with color flow and Doppler was performed. The study quality was technically adequate. Comparison is made with the echocardiogram of 09-26-18. The patient was in normal sinus rhythm during the exam. Left Ventricle: The left ventricle is normal in size, wall thickness, and systolic function without any focal wall motion abnormalities. The ejection fraction is estimated to be 60-65%. Right Ventricle: The right ventricle grossly appears normal in size with probable normal systolic function. Atria: The left atrium is moderately dilated. Right atrial size is normal. The interatrial septum is intact with no evidence for an atrial septal defect. Mitral Valve: The mitral valve is normal in structure and function. There is trace mitral regurgitation. Aortic Valve: The aortic valve opens well. No aortic regurgitation is present. Tricuspid Valve: The tricuspid valve is normal in structure and function. No tricuspid regurgitation. Pulmonic Valve: The pulmonic valve is normal in structure and function. There is a trace or physiologic amount of pulmonic regurgitation. Great Vessels: The aortic root is normal size. The dimensions of the ascending aorta are normal. The aortic arch is normal in size. Pericardium/ Pleura There is no pericardial effusion. There is no pleural effusion. MMode/2D Measurements & Calculations LVIDd: 5.3 cm Ao root diam: 3.1 cm LVIDs: 2.9 cm Aortic Jxn: 2.4 cm FS: 44.6 % asc Aorta Diam: 3.4 cm EPSS: 1.2 cm Ao Arch Diam (Prox Trans): 3.0 cm IVSd: 0.86 cm LVPWd: 0.86 cm LV zhang. diameter/BSA (cm/m^2): 2.6 LV sys. diameter/BSA (cm/m^2): 1.5 LA dimension: 4.9 cm RA long axis: 5.1 cm LA A2 area: 23.1 cm2 RA area: 15.3 cm2 LA A4 area: 27.1 cm2 RA vol: 38.9 ml LA length (vol): 5.8 cm RA : 19.5 ml/m2 LA vol: 92.1 ml RVDd major: 6.3 cm LA vol index: 46.1 ml/m2 RVD1 (basal): 3.4 cm RVD2 (mid): 2.6 cm Doppler Measurements & Calculations Ao V2 max: 257.5 cm/sec LVOT Max Trevor: 93.6 cm/sec Ao V2 mean: 153.7 cm/sec LV V1 max P.5 mmHg Ao max P.5 mmHg LV V1 VTI: 23.8 cm Ao mean P.4 mmHg sev ratio: 0.42 Ao V2 VTI: 56.3 cm MV E max trevor: 103.0 cm/sec PA V2 max: 102.9 cm/sec MV A max trevor: 89.9 cm/sec PA V2 mean: 66.2 cm/sec MV E/A: 1.1 PA mean P.1 mmHg Med Peak E' Trevor: 5.7 cm/sec PA Accel Time: 0.11 sec E/E' med: 18.1 Lat Peak E' Trevor: 12.2 cm/sec E/E' lat: 8.4 E/e' average: 13.3 MV dec time: 0.23 sec MV P1/2t: 69.7 msec MV P1/2t max trevor: 103.4 cm/sec MVA(P1/2t): 3.2 cm2 Reading Physician:04:47 PM
== END ==
PROVIDERS: PCP Family Medicine; Visit Provider Internal Medicine Hematology & Oncology
DX: C50.311 Malignant neoplasm of lower-inner quadrant of right female breast (principal); Z17.0 Estrogen receptor positive status [ER+]
CPT/HCPCS: 93306

== ENCOUNTER → 2019-03-06 08:53 | Outpatient (CLI) | payer MEDICARE, OTHER, SELFPAY ==
[2019-03-06 10:04] LABS: Hemoglobin A1C% w Est Avg Glu 5.4 % (4.0-6.0)
[2019-03-06 10:27] LABS: Cholesterol 217 mg/dL (140-199); HDL Cholesterol 51 mg/dL (40-60); LDL Cholesterol Calculated 138 mg/dL (<100); Triglycerides 142 mg/dL (35-150)
[2019-03-06 10:50] LABS: Thyroid Stimulating Hormone 2.83 uIU/mL (0.47-4.68)
== END ==
PROVIDERS: PCP Family Medicine; Visit Provider Family Medicine
DX: Z13.29 Encounter for screening for other suspected endocrine disorder (principal); R73.9 Hyperglycemia, unspecified; Z13.1 Encounter for screening for diabetes mellitus; I10 Essential (primary) hypertension
CPT/HCPCS: 36415; 80061; 83036; 84443

== ENCOUNTER → 2019-03-26 13:41 | Outpatient (CLI) | payer MEDICARE, OTHER, SELFPAY ==
--- NOTE | 2019-03-26 13:45 | DI.ECHO.S_ITS ---
[place] +---------+ [facility] +---------+ : : [address] : : : : [id number] : : : : Phone: [phone] : : [phone] +---------+ Echocardiogram Report + + :Name: ULISES BROWN Study Date: 03/26/2019 Height: 63 in : :[facility] Weight: 229 lb : : Gender: Female BSA: 2.0 m2 : :: 1950 Age: 69 yrs BP: 118/73 mmHg: :Reason For Study: BREAST CA-- HERCEPTIN : : Performed By: Vargas Santiago : :Referring: ANGELIQUE KHANNA : + + Interpretation Summary Left ventricular wall thickness is borderline increased. The ejection fraction is estimated to be 60-65%. There is no significant valvular heart disease. Procedure: A two-dimensional transthoracic echocardiogram with color flow and Doppler was performed. The study quality was technically good. Comparison is made with the echocardiogram of 12/29/18. The patient was in normal sinus rhythm during the exam. Left Ventricle: The left ventricle is normal in size. Left ventricular wall thickness is borderline increased. The ejection fraction is estimated to be 60-65%. There are no focal wall motion abnormalities. Right Ventricle: The right ventricle is normal in size and function. Atria: The left atrium is moderately dilated. Right atrial size is normal. The interatrial septum is intact with no evidence for an atrial septal defect. Mitral Valve: The mitral valve is normal in structure and function. There is mild mitral annular calcification. There is trace mitral regurgitation. Aortic Valve: The aortic valve is trileaflet. The aortic valve opens well. There is no aortic valve stenosis. No aortic regurgitation is present. Tricuspid Valve: The tricuspid valve is normal in structure and function. No tricuspid regurgitation. Pulmonary artery pressures cannot be estimated because of the lack of a measurable TR jet velocity. Pulmonic Valve: The pulmonic valve is normal in structure and function. There is trace pulmonic regurgitation. Great Vessels: The aortic root is normal size. The dimensions of the ascending aorta are normal. The pulmonary artery is normal size. The IVC is of normal diameter and collapses greater than 50% with a sniff. This suggests a low right atrial pressure of 3 mm Hg. Pericardium/ Pleura There is no pericardial effusion. There is no pleural effusion. MMode/2D Measurements & Calculations LVIDd: 5.5 cm LVOT diam: 2.1 cm LVIDs: 3.3 cm Ao root diam: 2.8 cm FS: 39.0 % Aortic Jxn: 2.2 cm EPSS: 0.55 cm asc Aorta Diam: 3.4 cm IVSd: 1.0 cm Ao Arch Diam (Prox Trans): 2.6 cm LVPWd: 0.89 cm LV zhang. diameter/BSA (cm/m^2): 2.7 LV sys. diameter/BSA (cm/m^2): 1.6 LA dimension: 5.0 cm RA long axis: 4.9 cm LA A2 area: 22.9 cm2 RA area: 18.2 cm2 LA A4 area: 29.1 cm2 RA vol: 57.5 ml LA length (vol): 6.6 cm RA : 28.1 ml/m2 LA vol: 86.4 ml IVC diam: 1.8 cm LA vol index: 42.2 ml/m2 RVD1 (basal): 3.8 cm RVD2 (mid): 3.9 cm Doppler Measurements & Calculations Ao V2 max: 200.6 cm/sec LVOT Max Trevor: 118.0 cm/sec Ao V2 mean: 153.5 cm/sec LV V1 max P.6 mmHg Ao max P.1 mmHg LV V1 VTI: 27.3 cm Ao mean P.0 mmHg ZANDER(I,D): 2.1 cm2 Ao V2 VTI: 46.0 cm ZANDER(V,D): 2.0 cm2 sev ratio: 0.59 ZANDER indexed to BSA (cm^2/m^2): 1.0 MV E max trevor: 93.0 cm/sec PA V2 max: 90.3 cm/sec MV A max trevor: 84.3 cm/sec PA V2 mean: 69.1 cm/sec MV E/A: 1.1 PA mean P.0 mmHg Med Peak E' Trevor: 4.9 cm/sec PA pr(Accel): 41.6 mmHg E/E' med: 19.2 PA Accel Time: 0.08 sec Lat Peak E' Trevor: 9.3 cm/sec E/E' lat: 10.0 E/e' average: 14.6 MV dec time: 0.19 sec SV(LVOT): 94.9 ml Reading Physician:04:30 PM
== END ==
PROVIDERS: PCP Family Medicine; Visit Provider Internal Medicine Hematology & Oncology
DX: C50.311 Malignant neoplasm of lower-inner quadrant of right female breast (principal); Z17.0 Estrogen receptor positive status [ER+]; Z79.899 Other long term (current) drug therapy
CPT/HCPCS: 93306

== ENCOUNTER → 2019-06-19 14:47 | Outpatient (CLI) | payer MEDICARE, OTHER, SELFPAY ==
--- NOTE | 2019-06-19 14:51 | DI.ECHO.S_ITS ---
[facility] +---------+ : : [address] [place] : : : : [id number] : : : : Phone: [phone]+ Echocardiogram Report + + :Name: ULISES BROWN Study Date: 06/19/2019 Height: 63 in : :[facility] Weight: 228 lb : : Gender: Female BSA: 2.0 m2 : :: 1950 Age: 69 yrs BP: 180/90 mmHg: :Reason For Study: BREAST CA : : Performed By: Vargas Santiago : :Referring: ANGELIQUE KHANNA : + + Interpretation Summary Normal sinus rhythm. Normal LV size, wall thickness, wall motion and LV systolic function. EF is 60-65%. Moderate biatrial enlargement. No significant valvular abnormalities. Compared to prior study 03/26/2019 no changes have occurred. Procedure: A two-dimensional transthoracic echocardiogram with color flow and Doppler was performed. The study quality was technically good. Comparison is made with the echocardiogram of 03/26/19. The patient was in normal sinus rhythm during the exam. Left Ventricle: The left ventricle is normal in size. There is normal left ventricular wall thickness. The ejection fraction is estimated to be 60-65%. There are no focal wall motion abnormalities. Right Ventricle: The right ventricle is normal in size and function. Atria: Both atria are moderately dilated. The interatrial septum is intact with no evidence for an atrial septal defect. Mitral Valve: The mitral valve is normal in structure and function. There is trace mitral regurgitation. Aortic Valve: The aortic valve is trileaflet. The aortic valve opens well. No aortic regurgitation is present. Tricuspid Valve: The tricuspid valve is normal in structure and function. No tricuspid regurgitation. Pulmonary artery pressures cannot be estimated because of the lack of a measurable TR jet velocity. Pulmonic Valve: The pulmonic valve is normal in structure and function. There is trace pulmonic regurgitation. Great Vessels: The aortic root is normal size. The dimensions of the ascending aorta are normal. The pulmonary artery is normal size. The IVC is of normal diameter and collapses greater than 50% with a sniff. This suggests a low right atrial pressure of 3 mm Hg. Pericardium/ Pleura There is no pericardial effusion. There is no pleural effusion. MMode/2D Measurements & Calculations LVIDd: 5.0 cm LVOT diam: 2.1 cm LVIDs: 3.2 cm Ao root diam: 2.7 cm FS: 36.3 % Aortic Jxn: 2.2 cm EPSS: 0.63 cm asc Aorta Diam: 3.4 cm IVSd: 0.91 cm LVPWd: 0.81 cm LV zhang. diameter/BSA (cm/m^2): 2.4 LV sys. diameter/BSA (cm/m^2): 1.6 LA dimension: 4.9 cm RA long axis: 5.8 cm LA A2 area: 27.3 cm2 RA area: 25.0 cm2 LA A4 area: 26.3 cm2 RA vol: 91.7 ml LA length (vol): 6.7 cm RA : 44.9 ml/m2 LA vol: 90.7 ml IVC diam: 1.5 cm LA vol index: 44.4 ml/m2 Doppler Measurements & Calculations Ao V2 max: 234.5 cm/sec LVOT Max Trevor: 126.6 cm/sec Ao V2 mean: 165.6 cm/sec LV V1 max P.4 mmHg Ao max P.0 mmHg LV V1 VTI: 27.1 cm Ao mean P.9 mmHg ZANDER(I,D): 1.9 cm2 Ao V2 VTI: 50.5 cm ZANDER(V,D): 1.9 cm2 sev ratio: 0.54 ZANDER indexed to BSA (cm^2/m^2): 0.91 MV E max trevor: 79.2 cm/sec PA V2 max: 107.2 cm/sec MV A max trevor: 84.9 cm/sec PA V2 mean: 75.2 cm/sec MV E/A: 0.93 PA mean P.5 mmHg Med Peak E' Trevor: 3.8 cm/sec PA pr(Accel): 46.6 mmHg E/E' med: 20.7 PA Accel Time: 0.07 sec Lat Peak E' Trevor: 8.5 cm/sec E/E' lat: 9.4 E/e' average: 15.1 MV dec time: 0.18 sec SV(LVOT): 94.2 ml Electronically signed by: Fatimah Bartlett M.D. on Reading Physician:06/20/2019 02:18 AM
== END ==
PROVIDERS: PCP Family Medicine; Visit Provider Internal Medicine Hematology & Oncology
DX: C50.311 Malignant neoplasm of lower-inner quadrant of right female breast (principal); Z17.0 Estrogen receptor positive status [ER+]
CPT/HCPCS: 93306

== ENCOUNTER 2019-08-04 13:55 | Day surgery (SDC) | payer MEDICARE, OTHER, SELFPAY ==
[2019-08-04 15:00] VITALS: BP 130/66; PULSE 66; RESP 17; TEMP 36.3; O2SAT 99; BMI 38.7
[2019-08-04] MEDS: LACTATED RINGERS 1,000 ML 100 ML IV (15:13)
--- NOTE | 2019-08-04 16:05 | PM.HP.1 ---
History of Present Illness History of Present Illness Date Patient Seen: 08/04/19 Time Patient Seen: 16:05 Chief complaint: [id number] REMOVE PORT-A-CATH Narrative: This 69-year-old female with history of right breast cancer status post lumpectomy sentinel lymph node biopsy radiation and chemo. She has completed her chemotherapy and removal of Port-A-Cath. She is feeling well today in her usual state of health no fever recent illness. Patient History Medical History Breast cancer (Acute) Breast cancer, right breast (Acute) Family history of breast cancer in mother (Acute) History of antineoplastic chemotherapy (Acute) HTN (hypertension) (Chronic) Hyperlipidemia (Acute) Obesity (Acute) Ovarian carcinoma (Acute ~2005) Port-A-Cath in place (Acute) Surgical History History of colonoscopy (Acute) History of incisional hernia repair (Acute) History of lumpectomy of right breast (Acute 05/27/18) History of total abdominal hysterectomy and bilateral salpingo-oophorectomy (Acute) Family & Social History Family History Father Hypertension Mother Breast cancer Social History: household members spouse Tobacco & Substance use: Smoking Status Never smoker alcohol intake current alcohol intake frequency 0-2 drinks per day Substance Use Type does not use Meds Home Medications and Allergies Home Medications Medication Instructions Recorded Confirmed Type cholecalciferol (vitamin D3) 1,000 unit PO DAILY #0 10/24/10 08/04/19 History [Vitamin D3] C-Zn-K.ginseng-hetal hips-hrb62 1 cap PO DAILY 06/23/18 08/04/19 History [Immune Support Complex] multivitamin [Multiple Vitamins] 1 tab PO DAILY 06/23/18 08/04/19 History metoprolol tartrate 50 mg tablet See Rx Instructions .ROUTE 03/16/19 08/04/19 Rx .COMPLEX #90 tablet amlodipine 5 mg tablet 5 mg PO BID #180 tab 04/07/19 08/04/19 Rx valsartan 160 1 tab PO Q DAY #90 tab 04/07/19 08/04/19 Rx mg-hydrochlorothiazide 25 mg tablet oiadelwo-vqqzz-bdfic-CF borate 1 tab PO DAILY 07/28/19 08/04/19 History [[facility]] letrozole 2.5 mg PO DAILY #90 tab 07/28/19 08/04/19 Rx Allergies Allergy/AdvReac Type Severity Reaction Status Date / Time adhesive [ADHESIVE] Allergy Unknown Verified 08/04/19 14:52 triprolidine [TRIPROLIDINE] Allergy Unknown UNKNOWN Verified 08/04/19 14:52 ezetimibe [EZETIMIBE] AdvReac Unknown (ZETIA) Verified 08/04/19 14:52 MUSCLE CRAMPS, WEAK Review of Systems Review of Systems Narrative: A 10 point review of systems is negative except as noted in the HPI Exam Vital Signs (past 8 hours): - 08/04/19 15:00 Temperature 97.4 F L Pulse Rate 66 Respiratory Rate 17 Blood Pressure 130/66 Pulse Oximetry 99 Oxygen Delivery Method Room Air Narrative Exam Narrative: General-no acute distress, well nourished HEENT-moist mucous membranes, no scleral icterus Neck-supple, no lymphadenopathy Chest- non labored respirations, clear to auscultation bilaterally Cardiac-regular rate no peripheral edema Abdomen-soft, nontender, non distended Extremities-warm, well perfused Neurological-alert and oriented, no focal deficits Assessment & Plan Assessment and plan (1) Breast cancer of lower-inner quadrant of right female breast: Current visit: No Status: Acute Assessment & Plan narrative: 69-year-old female with history of right breast cancer was completed chemotherapy and is here for Port-A-Cath removal. We discussed the technical details of the procedure including the risks of bleeding infection air embolism. Her questions have been answered she is in agreement with this plan will proceed to the operating room.
[2019-08-04] MEDS: CEFAZOLIN 2 GM/100 ML FROZ.PIGGY IV (16:16)
--- NOTE | 2019-08-04 16:22 | SUR.OPER ---
Supine on padded OR bed, head on pillow, arms secured on padded arm boards at <90 degrees abduction, legs uncrossed, safety belt at thigh, tape over blanket over lower legs.
[2019-08-04] MEDS: BUPIVACAINE 0.25% (PF) VIAL 30 ML INJ (16:33)
[2019-08-04 16:48] VITALS: BP 106/49; PULSE 60; RESP 15; TEMP 36.6; O2SAT 97
[2019-08-04 16:53] VITALS: BP 128/57; PULSE 59; RESP 15; O2SAT 98
[2019-08-04 17:20] VITALS: BP 131/68; PULSE 51; RESP 15; TEMP 36.3; O2SAT 100
--- NOTE | 2019-08-04 19:10 | PM.OP.1 ---
Operative Date/Time/Diagnoses Date of procedure: 08/04/19 Time of procedure: 19:10 Pre-op diagnosis: History of breast cancer Post-op diagnosis: same Procedure & Clinicians Procedure: Removal of Port-A-Cath Same procedure as scheduled: Yes Indications: History of breast cancer completed chemotherapy referred for Port-A-Cath removal Surgeon: Facundo Pang Click Yes if Unassisted: Yes Anesthesia Type: MAC +/- Operative Notes Findings: Normal appearing Port-A-Cath Specimen(s): other (Port-A-Cath) Estimated Blood Loss (mL): 5 Procedure in detail: Patient brought to the operating room placed supine on the table. Bilateral lower extremity compression devices were applied. She received 2 g of Ancef prior to skin incision. anesthesia was induced and she was intubated with an LMA. 0.25% bupivacaine was infiltrated in the skin overlying the Port-A-Cath. Incision with the knife was made through the skin and subcutaneous tissues. The Port-A-Cath was grasped and the anchoring sutures were removed. A Vicryl suture was then placed around the insertion site of the catheter and this was tied down at that same time that the catheter was withdrawn. The specimen was passed off the field. The wound was irrigated hemostasis was achieved. The subcutaneous tissue was reapproximated using Vicryl suture and skin closed with running Monocryl suture followed by Dermabond and Steri-Strips. Patient emerged from anesthesia and was transferred to the recovery room in stable condition. Complications: none Post-operative Condition: stable Disposition: same day surgery
== END 2019-08-04 17:24 | disposition home or self-care (01) ==
PROVIDERS: Referring Provider Surgery; Visit Provider Surgery
PROC: (CPT 36590; principal; 2019-08-04 15:15)
DX: Z45.2 Encounter for adjustment and management of vascular access device (principal); Z85.3 Personal history of malignant neoplasm of breast
CPT/HCPCS: 36590; J0690; J2704; J3010

== ENCOUNTER → 2019-08-13 09:43 | Outpatient (CLI) | payer MEDICARE, OTHER, SELFPAY | PROVIDERS: PCP Nurse Practitioner; Referring Provider Nurse Practitioner; Visit Provider Internal Medicine Hematology & Oncology | DX: M85.852 Other specified disorders of bone density and structure, left thigh (principal); Z78.0 Asymptomatic menopausal state; C50.311 Malignant neoplasm of lower-inner quadrant of right female breast; Z90.722 Acquired absence of ovaries, bilateral | CPT/HCPCS: 77080; 77081 ==

== ENCOUNTER → 2019-11-27 09:32 | Outpatient (CLI) | payer MEDICARE, OTHER, SELFPAY ==
[2019-11-27 10:13] LABS: Add Manual Diff / Slide Review NO; Basophils Absolute Auto 0 /uL (0-100); Basophils Percent Auto 0.3 % (0-2); Eosinophils Absolute Auto 800 /uL (0-450); Eosinophils Percent Auto 7.1 % (2-4); Hematocrit 35.8 % (36-46); Hemoglobin 12.5 g/dL (12.0-16.0); Lymphocytes Absolute Auto 1500 /uL (1100-4500); Lymphocytes Percent Auto 13.7 % (25-40); Mean Corpuscular Volume 94.3 fL (80-100); Monocytes Absolute Auto 700 /uL (0-900); Monocytes Percent Auto 6.1 % (3-14); Neutrophils Absolute Auto 7900 /uL (1500-7000); Neutrophils Percent Auto 72.8 % (50-75); Platelet Count 204 X10^3/uL (150-400); Red Cell Distribution Width 13.7 % (11.6-14.8); White Blood Cell Count 10.9 X10^3/uL (4.5-11.0)
[2019-11-27 10:22] LABS: Alanine Aminotransferase 28 IU/L (<35); Albumin 4.3 g/dL (3.5-5.0); Albumin Globulin Ratio 1.3 (1.0-2.8); Alkaline Phosphatase 56 U/L (38-126); Aspartate Aminotransferase 30 IU/L (14-36); BUN Creatinine Ratio 38.1 (6-22); Bilirubin Total 0.8 mg/dL (0.2-1.3); Blood Urea Nitrogen 37 mg/dL (7-17); Calcium 9.7 mg/dL (8.4-10.2); Carbon Dioxide 24 mmol/L (22-32); Chloride 100 mmol/L (98-107); Estimated Glomerular Filt Rate 56.9 mL/min (>60); Globulin 3.2 g/dL (1.7-4.1); Glucose 130 mg/dL (80-110); HEMOLYSIS < 15 (0-50); Potassium 4.6 mmol/L (3.4-5.1); Sodium 133 mmol/L (137-145); Total Protein 7.5 g/dL (6.3-8.2)
[2019-11-27 10:42] LABS: Cholesterol 217 mg/dL (140-199); HDL Cholesterol 58 mg/dL (40-60); LDL Cholesterol Calculated 131 mg/dL (<100); Triglycerides 142 mg/dL (35-150)
== END ==
PROVIDERS: Internal Medicine Hematology & Oncology; PCP Nurse Practitioner; Referring Provider Nurse Practitioner; Visit Provider Nurse Practitioner
DX: C50.311 Malignant neoplasm of lower-inner quadrant of right female breast (principal); I10 Essential (primary) hypertension; Z85.43 Personal history of malignant neoplasm of ovary
CPT/HCPCS: 36415; 80053; 80061; 85025

== ENCOUNTER → 2019-12-11 09:26 | Outpatient (CLI) | payer MEDICARE, OTHER, SELFPAY ==
[2019-12-11 11:12] LABS: Hemoglobin A1C% w Est Avg Glu 5.5 % (4.0-6.0)
[2019-12-11 11:22] LABS: Cholesterol 221 mg/dL (140-199); Glucose 114 mg/dL (80-110); HDL Cholesterol 63 mg/dL (40-60); LDL Cholesterol Calculated 133 mg/dL (<100); Triglycerides 123 mg/dL (35-150)
== END ==
PROVIDERS: PCP Nurse Practitioner; Referring Provider Nurse Practitioner; Visit Provider Nurse Practitioner
DX: R73.9 Hyperglycemia, unspecified (principal); E66.2 Morbid (severe) obesity with alveolar hypoventilation; E78.5 Hyperlipidemia, unspecified; R79.9 Abnormal finding of blood chemistry, unspecified
CPT/HCPCS: 36415; 80061; 82947; 83036

== ENCOUNTER → 2020-01-27 11:52 | Outpatient (CLI) | payer MEDICARE, OTHER, SELFPAY ==
--- NOTE | 2020-01-27 11:55 | DI.MG.S_ITS ---
BILATERAL DIGITAL SCREENING MAMMOGRAM 3D/2D WITH CAD: 01/27/2020 CLINICAL: Routine screening. Family history of breast cancer. Comparison is made to exams dated: 05/27/2018 mammogram, 04/08/2018 mammogram, 03/26/2018 mammogram, 03/04/2018 mammogram, 01/08/2017 mammogram, and 12/29/2015 mammogram - [facility]. There are scattered fibroglandular elements in both breasts. Current study was also evaluated with a Computer Aided Detection (CAD) system. There are benign post operative findings in the right breast. No significant masses, calcifications, or other findings are seen in either breast. IMPRESSION: BENIGN There is no mammographic evidence of malignancy. A 1 year screening mammogram is recommended. This exam was interpreted at Station ID: [id number]. NOTE: For mammograms, a report in lay terms will be sent to the patient. Approximately 15% of breast malignancies will not be visualized mammographically. In the management of a palpable breast mass, a negative mammogram must not discourage biopsy of a clinically suspicious lesion. Electronically Signed By: Fernando ibarra/norma:01/27/2020 14:52:56 letter sent: Normal Exam ACR BI-RADS Category 2: Benign Finding(s) 3342F
== END ==
PROVIDERS: PCP Nurse Practitioner; Referring Provider Internal Medicine Hematology & Oncology; Visit Provider Internal Medicine Hematology & Oncology
DX: Z12.31 Encounter for screening mammogram for malignant neoplasm of breast (principal); C50.311 Malignant neoplasm of lower-inner quadrant of right female breast; Z17.0 Estrogen receptor positive status [ER+]; Z79.811 Long term (current) use of aromatase inhibitors; Z80.3 Family history of malignant neoplasm of breast
CPT/HCPCS: 77063; 77067

== ENCOUNTER → 2020-02-24 08:34 | Outpatient (CLI) | payer MEDICARE, OTHER, SELFPAY ==
[2020-02-24 09:32] LABS: Alanine Aminotransferase 25 IU/L (<35); Albumin 4.3 g/dL (3.5-5.0); Albumin Globulin Ratio 1.6 (1.0-2.8); Alkaline Phosphatase 69 U/L (38-126); Aspartate Aminotransferase 28 IU/L (14-36); BUN Creatinine Ratio 38.8 (6-22); Bilirubin Total 0.5 mg/dL (0.2-1.3); Blood Urea Nitrogen 47 mg/dL (7-17); Calcium 9.7 mg/dL (8.4-10.2); Carbon Dioxide 27 mmol/L (22-32); Chloride 101 mmol/L (98-107); Cholesterol 209 mg/dL (140-199); Estimated Glomerular Filt Rate 44.1 mL/min (>60); Globulin 2.7 g/dL (1.7-4.1); Glucose 122 mg/dL (80-110); HDL Cholesterol 54 mg/dL (40-60); HEMOLYSIS < 15 (0-50); LDL Cholesterol Calculated 104 mg/dL (<100); Sodium 136 mmol/L (137-145); Triglycerides 253 mg/dL (35-150)
[2020-02-24 09:48] LABS: Free T3, Triiodothyronine Free 2.96 pg/mL (2.77-5.27); Free T4, Direct Thyroxine 1.23 ng/dL (0.78-2.19)
[2020-02-24 10:02] LABS: Thyroid Stimulating Hormone 3.24 uIU/mL (0.47-4.68)
[2020-02-25 05:14] LABS: Creatinine Urine Random 111.6 mg/dL
[2020-02-25 05:17] LABS: Microalbumi Creatinin Ratio Ur 79.7 ug/mg CR (<30); Microalbumin Urine Random 8.9 mg/dL (0-1.6)
== END ==
PROVIDERS: PCP Nurse Practitioner; Referring Provider Nurse Practitioner; Visit Provider Nurse Practitioner
DX: E78.5 Hyperlipidemia, unspecified (principal); I10 Essential (primary) hypertension; R73.9 Hyperglycemia, unspecified; Z79.899 Other long term (current) drug therapy
CPT/HCPCS: 36415; 80053; 80061; 82043; 82570; 84439; 84443; 84481

== ENCOUNTER → 2020-06-25 10:16 | Outpatient (CLI) | payer MEDICARE, OTHER, SELFPAY ==
[2020-06-25 11:22] LABS: Alanine Aminotransferase 23 IU/L (<35); Albumin Globulin Ratio 1.5 (1.0-2.8); Alkaline Phosphatase 56 U/L (38-126); Aspartate Aminotransferase 27 IU/L (14-36); Bilirubin Total 0.6 mg/dL (0.2-1.3); Blood Urea Nitrogen 48 mg/dL (7-17); Calcium 9.4 mg/dL (8.4-10.2); Carbon Dioxide 28 mmol/L (22-32); Chloride 101 mmol/L (98-107); Cholesterol 226 mg/dL (140-199); Estimated Glomerular Filt Rate 49.6 mL/min (>60); Globulin 2.6 g/dL (1.7-4.1); Glucose 133 mg/dL (80-110); HDL Cholesterol 70 mg/dL (40-60); HEMOLYSIS < 15 (0-50); LDL Cholesterol Calculated 133 mg/dL (<100); Potassium 4.5 mmol/L (3.4-5.1); Sodium 133 mmol/L (137-145); Total Protein 6.6 g/dL (6.3-8.2); Triglycerides 116 mg/dL (35-150)
[2020-06-25 11:23] LABS: Hemoglobin A1C% w Est Avg Glu 5.6 % (4.0-6.0)
== END ==
PROVIDERS: PCP Nurse Practitioner; Referring Provider Nurse Practitioner; Visit Provider Nurse Practitioner
DX: E78.5 Hyperlipidemia, unspecified; I10 Essential (primary) hypertension; R73.9 Hyperglycemia, unspecified; Z79.899 Other long term (current) drug therapy
CPT/HCPCS: 36415; 80053; 80061; 83036

== ENCOUNTER → 2020-07-15 13:13 | Outpatient (CLI) | payer MEDICARE, OTHER, SELFPAY ==
[2020-07-15] MEDS: COVID-19 VACC #1, MRNA(MOD) 100 MCG/0.5 ML VIAL IM (13:20)
== END ==
PROVIDERS: PCP Nurse Practitioner; Visit Provider Internal Medicine
DX: Z23 Encounter for immunization (principal)
CPT/HCPCS: 0011A; 91301

== ENCOUNTER → 2020-08-12 16:05 | Outpatient (CLI) | payer MEDICARE, OTHER, SELFPAY ==
[2020-08-12] MEDS: COVID-19 VACC #2, MRNA(MOD) 100 MCG/0.5 ML VIAL IM (16:12)
== END ==
PROVIDERS: PCP Nurse Practitioner; Visit Provider Internal Medicine
DX: Z23 Encounter for immunization (principal)
CPT/HCPCS: 0012A; 91301

== ENCOUNTER → 2021-01-31 11:27 | Outpatient (CLI) | payer MEDICARE, OTHER, SELFPAY ==
--- NOTE | 2021-01-31 11:31 | DI.MG.S_ITS ---
BILATERAL DIGITAL SCREENING MAMMOGRAM 3D/2D WITH CAD: 01/31/2021 CLINICAL: Routine screening. Breast cancer. Family history of breast cancer. Comparison is made to exams dated: 01/27/2020 mammogram, 05/27/2018 mammogram, 04/08/2018 mammogram, 03/26/2018 mammogram, 03/04/2018 mammogram, and 01/08/2017 mammogram - [facility]. There are scattered fibroglandular elements in both breasts. Current study was also evaluated with a Computer Aided Detection (CAD) system. There are benign post operative findings in the right breast. No significant masses, calcifications, or other findings are seen in either breast. There has been no significant interval change. IMPRESSION: BENIGN There is no mammographic evidence of malignancy. A 1 year screening mammogram is recommended. This exam was interpreted at Station ID: [id number]. NOTE: For mammograms, a report in lay terms will be sent to the patient. Approximately 15% of breast malignancies will not be visualized mammographically. In the management of a palpable breast mass, a negative mammogram must not discourage biopsy of a clinically suspicious lesion. Electronically Signed By: Fernando ibarra/norma:01/31/2021 12:02:03 copy to: IVONNE EDGAR letter sent: Normal Exam ACR BI-RADS Category 2: Benign Finding(s) [id number]
== END ==
PROVIDERS: PCP Nurse Practitioner; Referring Provider Internal Medicine Hematology & Oncology; Visit Provider Internal Medicine Hematology & Oncology
DX: Z12.31 Encounter for screening mammogram for malignant neoplasm of breast (principal); C50.919 Malignant neoplasm of unspecified site of unspecified female breast; Z80.3 Family history of malignant neoplasm of breast
CPT/HCPCS: 77063; 77067

== ENCOUNTER 2021-03-28 13:45 | Outpatient (RCR) | payer MEDICARE, OTHER, SELFPAY ==
--- NOTE | 2021-01-11 15:35 | PT.OIE ---
Current Diagnoses Other chronic pain (01/11/21) Bunion of right foot (01/11/21) Bunion of left foot (01/11/21) Pain in right hip (01/11/21) Pain in right knee (01/11/21) Pain in left knee (01/11/21) Lumbago with sciatica, right side (01/11/21) Iliotibial band syndrome, right leg (01/11/21) Past Medical History (Last Updated 12/07/20 @ 15:52 by Subhash Mendoza DO) Acute right hip pain Bilateral bunions Breast cancer Breast cancer of lower-inner quadrant of right female breast Breast cancer, right breast Cervical somatic dysfunction Chronic low back pain Chronic pain of both knees Family history of breast cancer in mother Flat feet, bilateral History of antineoplastic chemotherapy History of colonoscopy History of incisional hernia repair History of lumpectomy of right breast (05/27/18) History of malignant neoplasm of ovary in adulthood History of total abdominal hysterectomy and bilateral salpingo-oophorectomy HTN (hypertension) Hyperglycemia Hyperlipidemia Iliotibial band syndrome, right leg Lumbar region somatic dysfunction Neck stiffness Numbness and tingling in both hands Obesity 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 Ovarian carcinoma (~2005) Pain in lateral portion of right knee Pelvic somatic dysfunction Port-A-Cath in place Right knee pain Sacral region somatic dysfunction Segmental and somatic dysfunction of abdomen and other regions Somatic dysfunction of lower extremity Thoracic region somatic dysfunction Transaminitis Past Surgical History (Last Reviewed 06/29/20 @ 09:15 by ENEIDA Bradley) History of colonoscopy History of incisional hernia repair History of lumpectomy of right breast (05/27/18) History of total abdominal hysterectomy and bilateral salpingo-oophorectomy Visit Care Team Role Provider Type Subhash Mendoza DO Referring Provider Physician Specialty: [facility] Practice Address: [address] [place] [address], [address] Email: ENEIDA Bradley Attending Provider Advanced Dress Designer Primary Care Provider Specialty: [facility] Address: [address] [place] [address], [id number] Email: [email or web address] Physical Therapy Initial Evaluation PT-OP-A Visit Information Start: 01/11/21 11:10 Freq: Status: Active Protocol: Document 01/11/21 12:45 AMB (Rec: 01/11/21 14:54 AMB [email or web address]) Out-Patient Physical Therapy Visit Information Visit Information Visit Type Initial Evaluation Visit Start Time 12:45 Visit Stop Time 13:30 Total Visit Minutes 45 Visit Number 1 PT-OP-B Current Condition Start: 01/11/21 11:10 Freq: Status: Active Protocol: Document 01/11/21 12:45 AMB (Rec: 01/11/21 12:59 AMB [id number]) Current Condition History of Current Condition Onset Date chronic Current Complaints R sided sciatica History of Current Condition Low back pain that radiates into the right leg. Got worse with not doing much over COVID. Getting massages and water walking. Ever since age 20 was riding in a truck and had increased back pain, then back pain went away for a long time but has come back. Has 5 ANDREA with one railing and then a 2 level house. Does stairs with step to gait pattern. Difficulty standing for more than 10 min or walking much at all. 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 Personal Factors Other Personal Factors That May Effect Ovarian CA, breast CA, Therapy/Recovery hypertension, TB, neck pain. BMI 39.5 PT-OP-C Subjective Start: 01/11/21 11:10 Freq: Status: Active Protocol: Document 01/11/21 12:45 AMB (Rec: 01/11/21 14:54 AMB [email or web address]) Patient Questionnaires Lower Extremity Functional Scale LEFS Score 20 LEFS Impairment 60 to 79% Impaired (Score 17- 31) Oswestry Low Back Index Oswestry Score 60 Oswestry Impairment 60 to 79% Impaired (Score 60- 79) OP-PT Pain Assessment Comments Pain Comments 6-7/10 pain down right leg ( posterior hip, then wraps around the front of leg at level of knee into anterior knee) PT-OP-G Mobility & Gait Start: 01/11/21 11:10 Freq: Status: Active Protocol: Document 01/11/21 12:45 AMB (Rec: 01/11/21 15:26 AMB [email or web address]) OP Gait Assessment Comments Gait Comments Trendelenburg gait and hip circumduction with walking stick in L UE PT-OP-J Posture/Palpation/Skin Start: 01/11/21 11:10 Freq: Status: Active Protocol: Document 01/11/21 12:45 AMB (Rec: 01/11/21 15:26 AMB [email or web address]) Posture Evaluation Comments Posture Comments Severe lumbar sidebend to L Palpation Assessment Location Back Palpation Details Tenderness at R lumbar parapsinals but worse through gluteal muscles Skin Assessment Edema Assessment Bilateral Ankle Edema Type Pitting Edema Degree 4+ Subjective Edema Description Tightness Comments Pt states she gets summer time swelling in bilateral ankles but they are severely pitting PT-OP-K Range of Motion Start: 01/11/21 11:10 Freq: Status: Active Protocol: Document 01/11/21 12:45 AMB (Rec: 01/11/21 15:26 AMB [email or web address]) Lumbar Spine Range of Motion Lumbar Spine Active Degrees Testing Position Standing Flexion 50 Extension 5 Lateral Flexion Left 20 Lateral Flexion Right 2 Hip Goniometric Range of Motion Hip Right Active Comments R IR limited to neutral, other measurements bilaterally WFL PT-OP-M Strength Start: 01/11/21 11:10 Freq: Status: Active Protocol: Document 01/11/21 12:45 AMB (Rec: 01/11/21 15:34 AMB [email or web address]) Hip Strength Hip Manual Muscle Testing Left Flexion (L2) 4- Good- Extension (S1) 4- Good- Abduction 3- Fair- Right Flexion (L2) 2+ Poor+ Abduction 2- Poor- Knee Strength Knee Manual Muscle Testing Right Extension (L3) 4 Good Left Extension (L3) 3 Fair PT-OP-Q Treatments Start: 01/11/21 11:10 Freq: Status: Active Protocol: Document 01/11/21 12:45 AMB (Rec: 01/11/21 15:26 AMB [email or web address]) Therapeutic Exercises Sidelying Exercises 1 Sidelying Exercise Name clamshell Reps/Minutes 2x4 Sitting Exercises 1 Sitting Exercise Name LAQ Reps/Minutes 2x10 Comments AROM only could progress resistance PT-OP-T Assessment and Plan Start: 01/11/21 11:10 Freq: Status: Active Protocol: Document 01/11/21 12:45 AMB (Rec: 01/11/21 15:16 AMB [email or web address]) Physical Therapy Assessment Goals Three Impairment HEP Short Term Goal (STG) Chayo will be independent and consistent with a HEP for LE strengthening. STG Duration 4 weeks Two Impairment Gait Short Term Goal (STG) Chayo will ambulate with her walking stick for 2 minutes without an increase in her pain. STG Duration 4 weeks Associate Web Developer Goal (LTG) Chayo will ascend and descend a flight of stairs with 1 railing wihtout an increase in baseline pain. LTG Duration 8 weeks One Impairment Strength Short Term Goal (STG) Chayo will improve her hip abduction strength bilaterally to at least 3/5. STG Duration 4 weeks Residential Goal (LTG) Chayo will improve her LE strength so that she can move from sit to stand without heavy use of her upper extremities. LTG Duration 8 weeks Assessment Summary Assessment Chayo attends physical therapy with significant R>L hip weakness and L>R knee weakness that is impairing her gait and standing tolerance. She stands with a shift away from her painful right low back. She denies any lumbar imaging history. She presented with symptoms of chronic right lumbar radiculopathy and LE weakness as a result. She will benefit from strengthening and gait training to improve her function, as well as manual therapy/modalities for pain relief and to reduce her neural symptoms. Physical Therapy Plan Frequency and Duration Frequency of Treatment 2x/Week Duration of Treatment 8 weeks Plan of Care Start Date 01/11/21 Plan of Care End Date 03/08/21 Therapeutic Interventions Therapeutic Interventions Balance Training,Gait Training ,Home Exercise Program,Joint Mobilizations,Manual Therapy, Neuromuscular Re-education, Self-Care/Home Management,Soft Tissue Mobilization, Therapeutic Activities, Therapeutic Exercises Modalities Cold Pack/Ice Massage,Electric Stimulation,Hot Packs, Traction- Mechanical Next Visit Focus/Plan Next Note Type Treatment Note Next Visit Plan Establish HEP: verbally given clamshell and LAQ (seated) at end of eval, but please re- evaluate. Manual/modalities for back pain relief. Strengthening of LEs focusing on R hip and bilateral quads. Gait training as tolerated.
--- NOTE | 2021-01-11 15:36 | PT.OPPOC ---
Physical, Occupational & Speech Therapy At [facility] Current Diagnoses Other chronic pain (01/11/21) Bunion of right foot (01/11/21) Bunion of left foot (01/11/21) Pain in right hip (01/11/21) Pain in right knee (01/11/21) Pain in left knee (01/11/21) Lumbago with sciatica, right side (01/11/21) Iliotibial band syndrome, right leg (01/11/21) Visit Care Team Role Provider Type Subhash Mendoza DO Referring Provider Physician Specialty: [facility] Address: [address] [place] [address], [address] Email: ENEIDA Bradley Attending Provider Advanced Auger Mill Operator Primary Care Provider Specialty: [facility] Address: [address] [place] [address], [address] Email: [email or web address] Plan Of Care PT-OP-T Assessment and Plan Start: 01/11/21 11:10 Freq: Status: Active Protocol: Document 01/11/21 12:45 AMB (Rec: 01/11/21 15:16 AMB [email or web address]) Physical Therapy Assessment Goals Three Impairment HEP Short Term Goal (STG) Chayo will be independent and consistent with a HEP for LE strengthening. STG Duration 4 weeks Two Impairment Gait Short Term Goal (STG) Chayo will ambulate with her walking stick for 2 minutes without an increase in her pain. STG Duration 4 weeks Certified Personal Trainer Goal (LTG) Chayo will ascend and descend a flight of stairs with 1 railing wihtout an increase in baseline pain. LTG Duration 8 weeks One Impairment Strength Short Term Goal (STG) Chayo will improve her hip abduction strength bilaterally to at least 3/5. STG Duration 4 weeks Certified Personal Trainer Goal (LTG) Chayo will improve her LE strength so that she can move from sit to stand without heavy use of her upper extremities. LTG Duration 8 weeks Assessment Summary Assessment Chayo attends physical therapy with significant R>L hip weakness and L>R knee weakness that is impairing her gait and standing tolerance. She stands with a shift away from her painful right low back. She denies any lumbar imaging history. She presented with symptoms of chronic right lumbar radiculopathy and LE weakness as a result. She will benefit from strengthening and gait training to improve her function, as well as manual therapy/modalities for pain relief and to reduce her neural symptoms. Physical Therapy Plan Frequency and Duration Frequency of Treatment 2x/Week Duration of Treatment 8 weeks Plan of Care Start Date 01/11/21 Plan of Care End Date 03/08/21 Therapeutic Interventions Therapeutic Interventions Balance Training,Gait Training ,Home Exercise Program,Joint Mobilizations,Manual Therapy, Neuromuscular Re-education, Self-Care/Home Management,Soft Tissue Mobilization, Therapeutic Activities, Therapeutic Exercises Modalities Cold Pack/Ice Massage,Electric Stimulation,Hot Packs, Traction- Mechanical Next Visit Focus/Plan Next Note Type Treatment Note Next Visit Plan Establish HEP: verbally given clamshell and LAQ (seated) at end of eval, but please re- evaluate. Manual/modalities for back pain relief. Strengthening of LEs focusing on R hip and bilateral quads. Gait training as tolerated. Plan of Care Dates Plan of Care Start Date 01/11/21 Plan of Care End Date 03/08/21 Electronically Signed by: Caroline Calloway, PT 01/11/21 [id number] Please Sign and Return: I have reviewed this Plan of Care and certify that the skilled therapy services above are required to meet the patient?s needs. Physician Signature Date Printed Name and Credentials Clinical Instructor Signature Printed Name and Credentials
--- NOTE | 2021-01-18 16:41 | PT.OTN ---
Current Diagnoses Other chronic pain (01/18/21) Bunion of right foot (01/18/21) Bunion of left foot (01/18/21) Pain in right hip (01/18/21) Pain in right knee (01/18/21) Pain in left knee (01/18/21) Lumbago with sciatica, right side (01/18/21) Iliotibial band syndrome, right leg (01/18/21) Physical Therapy Treatment Note PT-OP-A Visit Information Start: 01/11/21 11:10 Freq: Status: Active Protocol: Document 01/18/21 13:45 MA (Rec: 01/18/21 14:35 MA [id number]) Out-Patient Physical Therapy Visit Information Visit Information Visit Type Treatment Note Visit Start Time 13:45 Visit Stop Time 14:20 Visit Number 2 Number of CRIME SCENE EVIDENCE TECHNICIAN Visits 1 PT-OP-B Current Condition Start: 01/11/21 11:10 Freq: Status: Active Protocol: Document 01/11/21 12:45 AMB (Rec: 01/11/21 12:59 AMB [id number]) Current Condition History of Current Condition Onset Date chronic Current Complaints R sided sciatica History of Current Condition Low back pain that radiates into the right leg. Got worse with not doing much over COVID. Getting massages and water walking. Ever since age 20 was riding in a truck and had increased back pain, then back pain went away for a long time but has come back. Has 5 [address] with one railing and then a 2 level house. Does stairs with step to gait pattern. Difficulty standing for more than 10 min or walking much at all. 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 Treatment Goals Patient/Caregiver Goals Reduce pain, walk and stand better Prior Functional Status Baseline Function- ADL's Modified Independent Baseline Function- Mobility Modified Independent Current Functional Impairments (Reported) Functional Limitations- ADL's Difficulty walking, has to take breaks to cook barbecue. Personal Factors Other Personal Factors That May Effect Ovarian CA, breast CA, Therapy/Recovery hypertension, TB, neck pain. BMI 39.5 PT-OP-C Subjective Start: 01/11/21 11:10 Freq: Status: Active Protocol: Document 01/18/21 13:45 MA (Rec: 08/04/21 14:35 MA [id number]) OP-PT Subjective Patient Comments Patient Comments Pt uses heat at home. Her R hip bothers her PT-OP-G Mobility & Gait Start: 01/11/21 11:10 Freq: Status: Active Protocol: Document 01/11/21 12:45 AMB (Rec: 01/11/21 15:26 AMB [email or web address]) OP Gait Assessment Comments Gait Comments Trendelenburg gait and hip circumduction with walking stick in L UE PT-OP-J Posture/Palpation/Skin Start: 01/11/21 11:10 Freq: Status: Active Protocol: Document 01/11/21 12:45 AMB (Rec: 01/11/21 15:26 AMB [email or web address]) Posture Evaluation Comments Posture Comments Severe lumbar sidebend to L Palpation Assessment Location Back Palpation Details Tenderness at R lumbar parapsinals but worse through gluteal muscles Skin Assessment Edema Assessment Bilateral Ankle Edema Type Pitting Edema Degree 4+ Subjective Edema Description Tightness Comments Pt states she gets summer time swelling in bilateral ankles but they are severely pitting PT-OP-K Range of Motion Start: 01/11/21 11:10 Freq: Status: Active Protocol: Document 01/11/21 12:45 AMB (Rec: 01/11/21 15:26 AMB [email or web address]) Lumbar Spine Range of Motion Lumbar Spine Active Degrees Testing Position Standing Flexion 50 Extension 5 Lateral Flexion Left 20 Lateral Flexion Right 2 Hip Goniometric Range of Motion Hip Right Active Comments R IR limited to neutral, other measurements bilaterally WFL PT-OP-M Strength Start: 01/11/21 11:10 Freq: Status: Active Protocol: Document 01/11/21 12:45 AMB (Rec: 01/11/21 15:34 AMB [email or web address]) Hip Strength Hip Manual Muscle Testing Left Flexion (L2) 4- Good- Extension (S1) 4- Good- Abduction 3- Fair- Right Flexion (L2) 2+ Poor+ Abduction 2- Poor- Knee Strength Knee Manual Muscle Testing Right Extension (L3) 4 Good Left Extension (L3) 3 Fair PT-OP-Q Treatments Start: 01/11/21 11:10 Freq: Status: Active Protocol: Document 01/18/21 13:45 MA (Rec: 01/18/21 14:35 MA [id number]) Therapeutic Exercises Supine Exercises Piriformis stretch Reps/Minutes 1' ea LTR Side bilateral Reps/Minutes 10x 10 SH Sidelying Exercises 1 Sidelying Exercise Name clamshell Reps/Minutes x8 Sitting Exercises 1 Sitting Exercise Name LAQ Reps/Minutes 2x10 Comments AROM only could progress resistance Standing Exercises STM Standing Exercise Name Tennis Ball STM to glutes and lumbar paraspinals Side right Manual Therapy Treatment Soft Tissue Mobilization Lumbar Paraspinals Body Location R side Mobilization Type Myofascial Release,Strumming, Trigger Point Release Intensity/Depth Moderate Body Position Prone Comments pt prefers pillow under chest for comfort Glutes Body Location R glute med Mobilization Type Myofascial Release,Sustained Pressure,Trigger Point Release Intensity/Depth Moderate Body Position Sidelying Self-Care/Home Management Treatment Education Patient Education Home Exercise Program Other Education Added and reviewed with pt the following HEP: LTR, piriformis stretch, LAQ with lvl 1 TB, seated HS stretch, and self-STM with tennis ball to R glutes and paraspinals PT-OP-T Assessment and Plan Start: 01/11/21 11:10 Freq: Status: Active Protocol: Document 01/18/21 13:45 MA (Rec: 01/18/21 14:35 MA [id number]) Physical Therapy Assessment Goals Three Impairment HEP Short Term Goal (STG) Chayo will be independent and consistent with a HEP for LE strengthening. STG Duration 4 weeks Two Impairment Gait Short Term Goal (STG) Chayo will ambulate with her walking stick for 2 minutes without an increase in her pain. STG Duration 4 weeks Tree Farmer Goal (LTG) Chayo will ascend and descend a flight of stairs with 1 railing wihtout an increase in baseline pain. LTG Duration 8 weeks One Impairment Strength Short Term Goal (STG) Chayo will improve her hip abduction strength bilaterally to at least 3/5. STG Duration 4 weeks Tree Farmer Goal (LTG) Chayo will improve her LE strength so that she can move from sit to stand without heavy use of her upper extremities. LTG Duration 8 weeks Assessment Summary Assessment Pt has limited R hip ER during clamshell exercise. She requires cues to keep hips stacked and avoid rotating lumbar spine. She is able to perform LAQ against resistance today and states it feels pretty good, almost like a stretch. Added and reviewed LTR, supine piriformis stretch , LAQ, seated HS stretch, and self-STM with tennis ball to HEP. Pt shows increased tightness through R glute med, ITB, and lumbar paraspinals and would benefit from continued STM to decrease LBP. Physical Therapy Plan Frequency and Duration Frequency of Treatment 2x/Week Duration of Treatment 8 weeks Plan of Care Start Date 01/11/21 Plan of Care End Date 03/08/21 Therapeutic Interventions Therapeutic Interventions Balance Training,Gait Training ,Home Exercise Program,Joint Mobilizations,Manual Therapy, Neuromuscular Re-education, Self-Care/Home Management,Soft Tissue Mobilization, Therapeutic Activities, Therapeutic Exercises Modalities Cold Pack/Ice Massage,Electric Stimulation,Hot Packs, Traction- Mechanical Next Visit Focus/Plan Next Note Type Treatment Note Next Visit Plan review new HEP exercises and end with heat next session Manual/modalities for back pain relief. Strengthening of LEs focusing on R hip and bilateral quads. Gait training as tolerated.
--- NOTE | 2021-01-20 16:47 | PT.OTN ---
Current Diagnoses Other chronic pain (01/20/21) Bunion of right foot (01/20/21) Bunion of left foot (01/20/21) Pain in right hip (01/20/21) Pain in right knee (01/20/21) Pain in left knee (01/20/21) Lumbago with sciatica, right side (01/20/21) Iliotibial band syndrome, right leg (01/20/21) Physical Therapy Treatment Note PT-OP-A Visit Information Start: 01/11/21 11:10 Freq: Status: Active Protocol: Document 01/20/21 13:37 MA (Rec: 01/20/21 14:32 MA [id number]) Out-Patient Physical Therapy Visit Information Visit Information Visit Type Treatment Note Visit Start Time 13:45 Visit Stop Time 14:45 Total Visit Minutes 60 Visit Number 2 Number of SENIOR CARE 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 Got worse with not doing much over COVID. Getting massages and water walking. Ever since age 20 was riding in a truck and had increased back pain, then back pain went away for a long time but has come back. Has 5 [address] with one railing and then a 2 level house. Does stairs with step to gait pattern. Difficulty standing for more than 10 min or walking much at all. 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 Personal Factors Other Personal Factors That May Effect Ovarian CA, breast CA, Therapy/Recovery hypertension, TB, neck pain. BMI 39.5 PT-OP-C Subjective Start: 01/11/21 11:10 Freq: Status: Active Protocol: Document 01/20/21 13:37 MA (Rec: 01/20/21 14:32 MA [id number]) OP-PT Subjective Patient Comments Patient Comments Pt states she did her HEP yesterday and some this morning. PT-OP-G Mobility & Gait Start: 01/11/21 11:10 Freq: Status: Active Protocol: Document 01/11/21 12:45 AMB (Rec: 01/11/21 15:26 AMB [email or web address]) OP Gait Assessment Comments Gait Comments Trendelenburg gait and hip circumduction with walking stick in L UE PT-OP-J Posture/Palpation/Skin Start: 01/11/21 11:10 Freq: Status: Active Protocol: Document 01/11/21 12:45 AMB (Rec: 01/11/21 15:26 AMB [email or web address]) Posture Evaluation Comments Posture Comments Severe lumbar sidebend to L Palpation Assessment Location Back Palpation Details Tenderness at R lumbar parapsinals but worse through gluteal muscles Skin Assessment Edema Assessment Bilateral Ankle Edema Type Pitting Edema Degree 4+ Subjective Edema Description Tightness Comments Pt states she gets summer time swelling in bilateral ankles but they are severely pitting PT-OP-K Range of Motion Start: 01/11/21 11:10 Freq: Status: Active Protocol: Document 01/11/21 12:45 AMB (Rec: 01/11/21 15:26 AMB [email or web address]) Lumbar Spine Range of Motion Lumbar Spine Active Degrees Testing Position Standing Flexion 50 Extension 5 Lateral Flexion Left 20 Lateral Flexion Right 2 Hip Goniometric Range of Motion Hip Right Active Comments R IR limited to neutral, other measurements bilaterally WFL PT-OP-M Strength Start: 01/11/21 11:10 Freq: Status: Active Protocol: Document 01/11/21 12:45 AMB (Rec: 01/11/21 15:34 AMB [email or web address]) Hip Strength Hip Manual Muscle Testing Left Flexion (L2) 4- Good- Extension (S1) 4- Good- Abduction 3- Fair- Right Flexion (L2) 2+ Poor+ Abduction 2- Poor- Knee Strength Knee Manual Muscle Testing Right Extension (L3) 4 Good Left Extension (L3) 3 Fair PT-OP-Q Treatments Start: 01/11/21 11:10 Freq: Status: Active Protocol: Document 01/20/21 13:37 MA (Rec: 01/20/21 14:32 MA [id number]) Therapeutic Exercises Supine Exercises Pelvic Tilts Reps/Minutes 5x5 SH Comments added to HEP BKFO Side bilateral Reps/Minutes 8x Comments added to HEP Piriformis stretch Reps/Minutes 1' ea LTR Side bilateral Reps/Minutes 10x 10 SH Sidelying Exercises Open Book Side bilateral Reps/Minutes 5x 1 Sidelying Exercise Name clamshell Reps/Minutes x10 Sitting Exercises HS Stretch Sitting Exercise Name Hamstring stretch Side bilateral Reps/Minutes 30 sec ea 1 Sitting Exercise Name LAQ Reps/Minutes 2x10 Comments AROM only could progress resistance Manual Therapy Treatment Soft Tissue Mobilization Lumbar Paraspinals Body Location R side Mobilization Type Myofascial Release,Strumming, Trigger Point Release Intensity/Depth Moderate Body Position Prone Comments pt prefers pillow under chest for comfort Glutes Body Location R glute med Mobilization Type Myofascial Release,Sustained Pressure,Trigger Point Release Intensity/Depth Moderate Body Position Sidelying Self-Care/Home Management Treatment Education Patient Education Home Exercise Program Other Education Added pelvic tilts and BKFO to HEP exercises for core strengthening to reduce LBP PT-OP-R Modalities Start: 01/11/21 11:10 Freq: Status: Active Protocol: Document 01/20/21 13:37 MA (Rec: 01/20/21 14:32 MA [id number]) Hot Pack/Cold Pack Treatment Hot Pack Location low back Patient Position Supine Treatment Duration (minutes) 15 Patient Tolerance Good PT-OP-T Assessment and Plan Start: 01/11/21 11:10 Freq: Status: Active Protocol: Document 01/20/21 13:37 MA (Rec: 01/20/21 14:32 MA [id number]) Physical Therapy Assessment Goals Three Impairment HEP Short Term Goal (STG) Chayo will be independent and consistent with a HEP for LE strengthening. STG Duration 4 weeks Two Impairment Gait Short Term Goal (STG) Chayo will ambulate with her walking stick for 2 minutes without an increase in her pain. STG Duration 4 weeks Shelter Goal (LTG) Chayo will ascend and descend a flight of stairs with 1 railing wihtout an increase in baseline pain. LTG Duration 8 weeks One Impairment Strength Short Term Goal (STG) Chayo will improve her hip abduction strength bilaterally to at least 3/5. STG Duration 4 weeks Plc Engineer Goal (LTG) Chayo will improve her LE strength so that she can move from sit to stand without heavy use of her upper extremities. LTG Duration 8 weeks Assessment Summary Assessment Pt reports haivng no issues with HEP. Reviewed HEP this session with pt requiring cues during HS stretch to keep spine straight and during clamshells to avoid rolling hips posteriorly R>L. Added to HEP BKFO and pelvic tilts for core strengthening to reduce LBP and ended with hot pack to lumbar spine. Physical Therapy Plan Frequency and Duration Frequency of Treatment 2x/Week Duration of Treatment 8 weeks Plan of Care Start Date 01/11/21 Plan of Care End Date 03/08/21 Therapeutic Interventions Therapeutic Interventions Balance Training,Gait Training ,Home Exercise Program,Joint Mobilizations,Manual Therapy, Neuromuscular Re-education, Self-Care/Home Management,Soft Tissue Mobilization, Therapeutic Activities, Therapeutic Exercises Modalities Cold Pack/Ice Massage,Electric Stimulation,Hot Packs, Traction- Mechanical Next Visit Focus/Plan Next Note Type Treatment Note Next Visit Plan Review new core HEP, try SL hip ABD for hip strengthening Manual/modalities for back pain relief. Strengthening of LEs focusing on R hip and bilateral quads. Gait training as tolerated.
--- NOTE | 2021-01-24 15:37 | PT.OTN ---
Current Diagnoses Other chronic pain (01/24/21) Bunion of right foot (01/24/21) Bunion of left foot (01/24/21) Pain in right hip (01/24/21) Pain in right knee (01/24/21) Pain in left knee (01/24/21) Lumbago with sciatica, right side (01/24/21) Iliotibial band syndrome, right leg (01/24/21) Physical Therapy Treatment Note PT-OP-A Visit Information Start: 01/11/21 11:10 Freq: Status: Active Protocol: Document 01/24/21 12:45 AMB (Rec: 01/24/21 13:23 AMB [id number]) Out-Patient Physical Therapy Visit Information Visit Information Visit Type Treatment Note Visit Start Time 12:45 Visit Stop Time 13:30 Visit Number 3 PT-OP-B Current Condition Start: 01/11/21 11:10 Freq: Status: Active Protocol: Document 01/11/21 12:45 AMB (Rec: 01/11/21 12:59 AMB [id number]) Current Condition History of Current Condition Onset Date chronic Current Complaints R sided sciatica History of Current Condition Low back pain that radiates into the right leg. Got worse with not doing much over COVID. Getting massages and water walking. Ever since age 20 was riding in a truck and had increased back pain, then back pain went away for a long time but has come back. Has 5 [address] with one railing and then a 2 level house. Does stairs with step to gait pattern. Difficulty standing for more than 10 min or walking much at all. 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 Personal Factors Other Personal Factors That May Effect Ovarian CA, breast CA, Therapy/Recovery hypertension, TB, neck pain. BMI 39.5 PT-OP-C Subjective Start: 01/11/21 11:10 Freq: Status: Active Protocol: Document 01/24/21 12:45 AMB (Rec: 01/24/21 15:34 AMB [email or web address]) OP-PT Subjective Patient Comments Patient Comments Pt reports she was able to cook enchiladas in standing without pain which is way more standing than she was able to do a few weeks ago. PT-OP-G Mobility & Gait Start: 01/11/21 11:10 Freq: Status: Active Protocol: Document 01/11/21 12:45 AMB (Rec: 01/11/21 15:26 AMB [email or web address]) OP Gait Assessment Comments Gait Comments Trendelenburg gait and hip circumduction with walking stick in L UE PT-OP-J Posture/Palpation/Skin Start: 01/11/21 11:10 Freq: Status: Active Protocol: Document 01/11/21 12:45 AMB (Rec: 01/11/21 15:26 AMB [email or web address]) Posture Evaluation Comments Posture Comments Severe lumbar sidebend to L Palpation Assessment Location Back Palpation Details Tenderness at R lumbar parapsinals but worse through gluteal muscles Skin Assessment Edema Assessment Bilateral Ankle Edema Type Pitting Edema Degree 4+ Subjective Edema Description Tightness Comments Pt states she gets summer time swelling in bilateral ankles but they are severely pitting PT-OP-K Range of Motion Start: 01/11/21 11:10 Freq: Status: Active Protocol: Document 01/11/21 12:45 AMB (Rec: 01/11/21 15:26 AMB [email or web address]) Lumbar Spine Range of Motion Lumbar Spine Active Degrees Testing Position Standing Flexion 50 Extension 5 Lateral Flexion Left 20 Lateral Flexion Right 2 Hip Goniometric Range of Motion Hip Right Active Comments R IR limited to neutral, other measurements bilaterally WFL PT-OP-M Strength Start: 01/11/21 11:10 Freq: Status: Active Protocol: Document 01/11/21 12:45 AMB (Rec: 01/11/21 15:34 AMB [email or web address]) Hip Strength Hip Manual Muscle Testing Left Flexion (L2) 4- Good- Extension (S1) 4- Good- Abduction 3- Fair- Right Flexion (L2) 2+ Poor+ Abduction 2- Poor- Knee Strength Knee Manual Muscle Testing Right Extension (L3) 4 Good Left Extension (L3) 3 Fair PT-OP-Q Treatments Start: 01/11/21 11:10 Freq: Status: Active Protocol: Document 01/24/21 12:45 AMB (Rec: 01/24/21 13:23 AMB [id number]) Therapeutic Exercises Supine Exercises hooklying adduction/IR Reps/Minutes 2x10 Comments with small ball between knees- HEP Pelvic Tilts Reps/Minutes 5x5 SH Comments added to HEP BKFO Supine Exercise Name added #2 T band Side bilateral Reps/Minutes 8x Comments added to HEP Piriformis stretch Supine Exercise Name on hold due to pain Sidelying Exercises 1 Sidelying Exercise Name clamshell Reps/Minutes x10 Manual Therapy Treatment Soft Tissue Mobilization Glutes Body Location R glute med Mobilization Type Myofascial Release,Sustained Pressure,Trigger Point Release Intensity/Depth Moderate Body Position Sidelying PT-OP-R Modalities Start: 01/11/21 11:10 Freq: Status: Active Protocol: Document 01/20/21 13:37 MA (Rec: 01/20/21 14:32 MA [id number]) Hot Pack/Cold Pack Treatment Hot Pack Location low back Patient Position Supine Treatment Duration (minutes) 15 Patient Tolerance Good PT-OP-T Assessment and Plan Start: 01/11/21 11:10 Freq: Status: Active Protocol: Document 01/24/21 12:45 AMB (Rec: 01/24/21 15:34 AMB [email or web address]) Physical Therapy Assessment Goals Three Impairment HEP Short Term Goal (STG) Chayo will be independent and consistent with a HEP for LE strengthening. STG Duration 4 weeks Two Impairment Gait Short Term Goal (STG) Chayo will ambulate with her walking stick for 2 minutes without an increase in her pain. STG Duration 4 weeks Bone Char Puller Goal (LTG) Chayo will ascend and descend a flight of stairs with 1 railing wihtout an increase in baseline pain. LTG Duration 8 weeks One Impairment Strength Short Term Goal (STG) Chayo will improve her hip abduction strength bilaterally to at least 3/5. STG Duration 4 weeks Custodial Goal (LTG) Chayo will improve her LE strength so that she can move from sit to stand without heavy use of her upper extremities. LTG Duration 8 weeks Assessment Summary Assessment Chayo did well with new exercises today, seemed to understand concept of glute set to prep for stance phase on R. L knee continues to be weak. Back pain is improving. Physical Therapy Plan Next Visit Focus/Plan Next Visit Plan Review new HEP, add in quad strengthening
--- NOTE | 2021-01-26 15:29 | PT.OTN ---
Current Diagnoses Other chronic pain (01/26/21) Bunion of right foot (01/26/21) Bunion of left foot (01/26/21) Pain in right hip (01/26/21) Pain in right knee (01/26/21) Pain in left knee (01/26/21) Lumbago with sciatica, right side (01/26/21) Iliotibial band syndrome, right leg (01/26/21) Physical Therapy Treatment Note PT-OP-A Visit Information Start: 01/11/21 11:10 Freq: Status: Active Protocol: Document 01/26/21 15:15 AW (Rec: 01/26/21 15:15 AW [id number]) Out-Patient Physical Therapy Visit Information Visit Information Visit Type Treatment Note Visit Start Time 14:30 Visit Stop Time 15:15 Total Visit Minutes 45 Visit Number 4 Number of SURGERY SCHEDULING COORDINATOR Visits 0 PT-OP-B Current Condition Start: 01/11/21 11:10 Freq: Status: Active Protocol: Document 01/11/21 12:45 AMB (Rec: 01/11/21 12:59 AMB [id number]) Current Condition History of Current Condition Onset Date chronic Current Complaints R sided sciatica History of Current Condition Low back pain that radiates into the right leg. Got worse with not doing much over COVID. Getting massages and water walking. Ever since age 20 was riding in a truck and had increased back pain, then back pain went away for a long time but has come back. Has 5 [address] with one railing and then a 2 level house. Does stairs with step to gait pattern. Difficulty standing for more than 10 min or walking much at all. 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 Personal Factors Other Personal Factors That May Effect Ovarian CA, breast CA, Therapy/Recovery hypertension, TB, neck pain. BMI 39.5 PT-OP-C Subjective Start: 01/11/21 11:10 Freq: Status: Active Protocol: Document 01/26/21 15:15 AW (Rec: 01/26/21 15:15 AW [id number]) OP-PT Subjective Patient Comments Patient Comments Intense pain yesterday >9/10 from right hip to knee. At night, pain was local to the right knee. Did not do HEP. PT-OP-G Mobility & Gait Start: 01/11/21 11:10 Freq: Status: Active Protocol: Document 01/11/21 12:45 AMB (Rec: 01/11/21 15:26 AMB [email or web address]) OP Gait Assessment Comments Gait Comments Trendelenburg gait and hip circumduction with walking stick in L UE PT-OP-J Posture/Palpation/Skin Start: 01/11/21 11:10 Freq: Status: Active Protocol: Document 01/11/21 12:45 AMB (Rec: 01/11/21 15:26 AMB [email or web address]) Posture Evaluation Comments Posture Comments Severe lumbar sidebend to L Palpation Assessment Location Back Palpation Details Tenderness at R lumbar parapsinals but worse through gluteal muscles Skin Assessment Edema Assessment Bilateral Ankle Edema Type Pitting Edema Degree 4+ Subjective Edema Description Tightness Comments Pt states she gets summer time swelling in bilateral ankles but they are severely pitting PT-OP-K Range of Motion Start: 01/11/21 11:10 Freq: Status: Active Protocol: Document 01/11/21 12:45 AMB (Rec: 01/11/21 15:26 AMB [email or web address]) Lumbar Spine Range of Motion Lumbar Spine Active Degrees Testing Position Standing Flexion 50 Extension 5 Lateral Flexion Left 20 Lateral Flexion Right 2 Hip Goniometric Range of Motion Hip Right Active Comments R IR limited to neutral, other measurements bilaterally WFL PT-OP-M Strength Start: 01/11/21 11:10 Freq: Status: Active Protocol: Document 01/11/21 12:45 AMB (Rec: 01/11/21 15:34 AMB [email or web address]) Hip Strength Hip Manual Muscle Testing Left Flexion (L2) 4- Good- Extension (S1) 4- Good- Abduction 3- Fair- Right Flexion (L2) 2+ Poor+ Abduction 2- Poor- Knee Strength Knee Manual Muscle Testing Right Extension (L3) 4 Good Left Extension (L3) 3 Fair PT-OP-Q Treatments Start: 01/11/21 11:10 Freq: Status: Active Protocol: Document 01/26/21 15:15 AW (Rec: 08/12/21 15:15 AW [id number]) Therapeutic Exercises Supine Exercises hooklying adduction/IR Reps/Minutes 2x10 Comments with small ball between knees- HEP review BKFO Supine Exercise Name added #2 T band Side bilateral Reps/Minutes 8x Comments added to HEP LTR Side bilateral Reps/Minutes 10x 10 SH Comments painful to right; cued pain- free range Sidelying Exercises Open Book Side bilateral Reps/Minutes 5x Comments unable to lie on right side 1 Sidelying Exercise Name clamshell Reps/Minutes x10 Comments unable to lie on right side Sitting Exercises HS curl Sitting Exercise Name HS curl 1 Sitting Exercise Name LAQ Side bilateral Resistance lvl 1 Equipment Used TB Reps/Minutes x10 Manual Therapy Treatment Soft Tissue Mobilization Glutes Body Location R glute med Mobilization Type Myofascial Release,Sustained Pressure,Trigger Point Release Intensity/Depth Moderate Body Position Sidelying PT-OP-R Modalities Start: 01/11/21 11:10 Freq: Status: Active Protocol: Document 01/20/21 13:37 MA (Rec: 01/20/21 14:32 MA [id number]) Hot Pack/Cold Pack Treatment Hot Pack Location low back Patient Position Supine Treatment Duration (minutes) 15 Patient Tolerance Good PT-OP-T Assessment and Plan Start: 01/11/21 11:10 Freq: Status: Active Protocol: Document 01/26/21 15:15 AW (Rec: 01/26/21 15:28 AW [id number]) Physical Therapy Assessment Goals Three Impairment HEP Short Term Goal (STG) Chayo will be independent and consistent with a HEP for LE strengthening. STG Duration 4 weeks Two Impairment Gait Short Term Goal (STG) Chayo will ambulate with her walking stick for 2 minutes without an increase in her pain. STG Duration 4 weeks Emergency Medical Technician/Driver Goal (LTG) Chayo will ascend and descend a flight of stairs with 1 railing wihtout an increase in baseline pain. LTG Duration 8 weeks One Impairment Strength Short Term Goal (STG) Chayo will improve her hip abduction strength bilaterally to at least 3/5. STG Duration 4 weeks Correction Goal (LTG) Chayo will improve her LE strength so that she can move from sit to stand without heavy use of her upper extremities. LTG Duration 8 weeks Assessment Summary Assessment Pt limited by RLE pain today which is worse with right sidelying. Reviewed HEP and added seated knee exercise for clinic only at this time. Physical Therapy Plan Frequency and Duration Frequency of Treatment 2x/Week Duration of Treatment 8 weeks Plan of Care Start Date 01/11/21 Plan of Care End Date 03/08/21 Therapeutic Interventions Therapeutic Interventions Balance Training,Gait Training ,Home Exercise Program,Joint Mobilizations,Manual Therapy, Neuromuscular Re-education, Self-Care/Home Management,Soft Tissue Mobilization, Therapeutic Activities, Therapeutic Exercises Modalities Cold Pack/Ice Massage,Electric Stimulation,Hot Packs, Traction- Mechanical Next Visit Focus/Plan Next Note Type Treatment Note Next Visit Plan Review HEP, progress quad strengthening
--- NOTE | 2021-02-06 12:13 | PT.OTN ---
Current Diagnoses Other chronic pain (02/06/21) Bunion of right foot (02/06/21) Bunion of left foot (02/06/21) Pain in right hip (02/06/21) Pain in right knee (02/06/21) Pain in left knee (02/06/21) Lumbago with sciatica, right side (02/06/21) Iliotibial band syndrome, right leg (02/06/21) Physical Therapy Treatment Note PT-OP-A Visit Information Start: 01/11/21 11:10 Freq: Status: Active Protocol: Document 02/06/21 11:18 LR (Rec: 02/06/21 12:12 [facility] [id number]) Out-Patient Physical Therapy Visit Information Visit Information Visit Type Treatment Note Visit Start Time 11:20 Visit Stop Time 12:15 Total Visit Minutes 55 Visit Number 5 Number of SHOTBLAST OPERATOR Visits 0 PT-OP-B Current Condition Start: 01/11/21 11:10 Freq: Status: Active Protocol: Document 01/11/21 12:45 AMB (Rec: 01/11/21 12:59 AMB [id number]) Current Condition History of Current Condition Onset Date chronic Current Complaints R sided sciatica History of Current Condition Low back pain that radiates into the right leg. Got worse with not doing much over COVID. Getting massages and water walking. Ever since age 20 was riding in a truck and had increased back pain, then back pain went away for a long time but has come back. Has 5 [address] with one railing and then a 2 level house. Does stairs with step to gait pattern. Difficulty standing for more than 10 min or walking much at all. 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 Personal Factors Other Personal Factors That May Effect Ovarian CA, breast CA, Therapy/Recovery hypertension, TB, neck pain. BMI 39.5 PT-OP-C Subjective Start: 01/11/21 11:10 Freq: Status: Active Protocol: Document 02/06/21 11:18 [facility] (Rec: 02/06/21 12:12 [facility] [id number]) OP-PT Subjective Patient Comments Patient Comments Pt reports she feels like she can lay in bed without pain now but as soon as she starts moving, she hurts. She has been compliant w/HEP. PT-OP-G Mobility & Gait Start: 01/11/21 11:10 Freq: Status: Active Protocol: Document 01/11/21 12:45 AMB (Rec: 01/11/21 15:26 AMB [email or web address]) OP Gait Assessment Comments Gait Comments Trendelenburg gait and hip circumduction with walking stick in L UE PT-OP-J Posture/Palpation/Skin Start: 01/11/21 11:10 Freq: Status: Active Protocol: Document 01/11/21 12:45 AMB (Rec: 01/11/21 15:26 AMB [email or web address]) Posture Evaluation Comments Posture Comments Severe lumbar sidebend to L Palpation Assessment Location Back Palpation Details Tenderness at R lumbar parapsinals but worse through gluteal muscles Skin Assessment Edema Assessment Bilateral Ankle Edema Type Pitting Edema Degree 4+ Subjective Edema Description Tightness Comments Pt states she gets summer time swelling in bilateral ankles but they are severely pitting PT-OP-K Range of Motion Start: 01/11/21 11:10 Freq: Status: Active Protocol: Document 01/11/21 12:45 AMB (Rec: 01/11/21 15:26 AMB [email or web address]) Lumbar Spine Range of Motion Lumbar Spine Active Degrees Testing Position Standing Flexion 50 Extension 5 Lateral Flexion Left 20 Lateral Flexion Right 2 Hip Goniometric Range of Motion Hip Right Active Comments R IR limited to neutral, other measurements bilaterally WFL PT-OP-M Strength Start: 01/11/21 11:10 Freq: Status: Active Protocol: Document 01/11/21 12:45 AMB (Rec: 01/11/21 15:34 AMB [email or web address]) Hip Strength Hip Manual Muscle Testing Left Flexion (L2) 4- Good- Extension (S1) 4- Good- Abduction 3- Fair- Right Flexion (L2) 2+ Poor+ Abduction 2- Poor- Knee Strength Knee Manual Muscle Testing Right Extension (L3) 4 Good Left Extension (L3) 3 Fair PT-OP-Q Treatments Start: 01/11/21 11:10 Freq: Status: Active Protocol: Document 02/06/21 11:18 [facility] (Rec: 02/06/21 12:12 [facility] [id number]) Therapeutic Exercises Supine Exercises march Supine Exercise Name core focus Side bilateral Reps/Minutes 15 heel slide Supine Exercise Name partial range Side bilateral Reps/Minutes 15 Comments core focus Pelvic Tilts Reps/Minutes 5x5 SH BKFO Side bilateral Equipment Used Lvl 2 Reps/Minutes 2x8 Comments focus on core LTR Side bilateral Reps/Minutes 10x 10 SH Comments focus on core to help pull legs back up Sidelying Exercises 1 Sidelying Exercise Name clamshell Side right Reps/Minutes x10 Comments ues for inc hip flex and core engagement Manual Therapy Treatment Soft Tissue Mobilization Lumbar Paraspinals Body Location R side Mobilization Type Myofascial Release,Strumming, Trigger Point Release Intensity/Depth Moderate Body Position Prone Comments pt prefers pillow under chest for comfort Glutes Body Location R glute med Mobilization Type Myofascial Release,Sustained Pressure,Trigger Point Release Intensity/Depth Moderate Body Position Sidelying PT-OP-R Modalities Start: 01/11/21 11:10 Freq: Status: Active Protocol: Document 02/06/21 11:18 [facility] (Rec: 02/06/21 12:12 [facility] [id number]) Hot Pack/Cold Pack Treatment Hot Pack Location low back Patient Position Supine Treatment Duration (minutes) 15 Patient Tolerance Good PT-OP-T Assessment and Plan Start: 01/11/21 11:10 Freq: Status: Active Protocol: Document 02/06/21 11:18 [facility] (Rec: 02/06/21 12:12 [facility] [id number]) Physical Therapy Assessment Goals Three Impairment HEP Short Term Goal (STG) Chayo will be independent and consistent with a HEP for LE strengthening. STG Duration 4 weeks Two Impairment Gait Short Term Goal (STG) Chayo will ambulate with her walking stick for 2 minutes without an increase in her pain. STG Duration 4 weeks Care Home Goal (LTG) Chayo will ascend and descend a flight of stairs with 1 railing wihtout an increase in baseline pain. LTG Duration 8 weeks One Impairment Strength Short Term Goal (STG) Chayo will improve her hip abduction strength bilaterally to at least 3/5. STG Duration 4 weeks Manager Net Goal (LTG) Chayo will improve her LE strength so that she can move from sit to stand without heavy use of her upper extremities. LTG Duration 8 weeks Assessment Summary Assessment Pt did well with progression of exercises today. She requires max ceuing for core engagement with exercises adn breathing during core enagement and exercises. Physical Therapy Plan Frequency and Duration Frequency of Treatment 2x/Week Duration of Treatment 8 weeks Plan of Care Start Date 01/11/21 Plan of Care End Date 03/08/21 Next Visit Focus/Plan Next Note Type Treatment Note Next Visit Plan cont to work on core progression and quad strength
--- NOTE | 2021-02-09 15:40 | PT.OTN ---
Current Diagnoses Other chronic pain (02/09/21) Bunion of right foot (02/09/21) Bunion of left foot (02/09/21) Pain in right hip (02/09/21) Pain in right knee (02/09/21) Pain in left knee (02/09/21) Lumbago with sciatica, right side (02/09/21) Iliotibial band syndrome, right leg (02/09/21) Physical Therapy Treatment Note PT-OP-A Visit Information Start: 01/11/21 11:10 Freq: Status: Active Protocol: Document 02/09/21 14:15 AMB (Rec: 02/09/21 15:38 AMB [id number]) Out-Patient Physical Therapy Visit Information Visit Information Visit Type Treatment Note Visit Start Time 14:15 Visit Stop Time 15:00 Total Visit Minutes 55 Visit Number 6 PT-OP-B Current Condition Start: 01/11/21 11:10 Freq: Status: Active Protocol: Document 01/11/21 12:45 AMB (Rec: 01/11/21 12:59 AMB [id number]) Current Condition History of Current Condition Onset Date chronic Current Complaints R sided sciatica History of Current Condition Low back pain that radiates into the right leg. Got worse with not doing much over COVID. Getting massages and water walking. Ever since age 20 was riding in a truck and had increased back pain, then back pain went away for a long time but has come back. Has 5 [address] with one railing and then a 2 level house. Does stairs with step to gait pattern. Difficulty standing for more than 10 min or walking much at all. 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 Personal Factors Other Personal Factors That May Effect Ovarian CA, breast CA, Therapy/Recovery hypertension, TB, neck pain. BMI 39.5 PT-OP-C Subjective Start: 01/11/21 11:10 Freq: Status: Active Protocol: Document 02/09/21 14:15 AMB (Rec: 02/09/21 15:38 AMB [id number]) OP-PT Subjective Patient Comments Patient Comments Pt says some days are ok and some are bad, overall thinks improving over the last month, but very slow. Pt did call her doctor and got muscle relaxants, but hasn't noticed much improvement yet. PT-OP-G Mobility & Gait Start: 01/11/21 11:10 Freq: Status: Active Protocol: Document 01/11/21 12:45 AMB (Rec: 01/11/21 15:26 AMB [email or web address]) OP Gait Assessment Comments Gait Comments Trendelenburg gait and hip circumduction with walking stick in L UE PT-OP-J Posture/Palpation/Skin Start: 01/11/21 11:10 Freq: Status: Active Protocol: Document 01/11/21 12:45 AMB (Rec: 01/11/21 15:26 AMB [email or web address]) Posture Evaluation Comments Posture Comments Severe lumbar sidebend to L Palpation Assessment Location Back Palpation Details Tenderness at R lumbar parapsinals but worse through gluteal muscles Skin Assessment Edema Assessment Bilateral Ankle Edema Type Pitting Edema Degree 4+ Subjective Edema Description Tightness Comments Pt states she gets summer time swelling in bilateral ankles but they are severely pitting PT-OP-K Range of Motion Start: 01/11/21 11:10 Freq: Status: Active Protocol: Document 01/11/21 12:45 AMB (Rec: 01/11/21 15:26 AMB [email or web address]) Lumbar Spine Range of Motion Lumbar Spine Active Degrees Testing Position Standing Flexion 50 Extension 5 Lateral Flexion Left 20 Lateral Flexion Right 2 Hip Goniometric Range of Motion Hip Right Active Comments R IR limited to neutral, other measurements bilaterally WFL PT-OP-M Strength Start: 01/11/21 11:10 Freq: Status: Active Protocol: Document 01/11/21 12:45 AMB (Rec: 01/11/21 15:34 AMB [email or web address]) Hip Strength Hip Manual Muscle Testing Left Flexion (L2) 4- Good- Extension (S1) 4- Good- Abduction 3- Fair- Right Flexion (L2) 2+ Poor+ Abduction 2- Poor- Knee Strength Knee Manual Muscle Testing Right Extension (L3) 4 Good Left Extension (L3) 3 Fair PT-OP-Q Treatments Start: 01/11/21 11:10 Freq: Status: Active Protocol: Document 02/09/21 14:15 AMB (Rec: 02/09/21 15:38 AMB [id number]) Therapeutic Exercises Supine Exercises march Supine Exercise Name core focus Side bilateral Reps/Minutes 15 heel slide Supine Exercise Name partial range Side bilateral Reps/Minutes 15 Comments core focus LTR Side bilateral Reps/Minutes 10x 10 SH Comments focus on core to help pull legs back up Manual Therapy Treatment Soft Tissue Mobilization Glutes Body Location R glute med Mobilization Type Myofascial Release,Sustained Pressure,Trigger Point Release Intensity/Depth Moderate Body Position Sidelying PT-OP-R Modalities Start: 01/11/21 11:10 Freq: Status: Active Protocol: Document 02/09/21 14:15 AMB (Rec: 02/09/21 15:38 AMB [id number]) Electric Stimulation Electric Stimulation Interferential Current (IFC) Body Location R hip Duration (Minutes) 15 Patient Position Sidelying Combined With Heat/Cold Hot Pack PT-OP-T Assessment and Plan Start: 01/11/21 11:10 Freq: Status: Active Protocol: Document 02/09/21 14:15 AMB (Rec: 02/09/21 15:38 AMB [id number]) Physical Therapy Assessment Assessment Summary Assessment Chayo had worse gait today and walked in with walking sticks. After going over pain/ weakness/progression encouraged pt to call MD if not feeling improvement in pain over the weekend. Physical Therapy Plan Next Visit Focus/Plan Next Note Type Treatment Note Next Visit Plan cont to work on core progression and quad strength
--- NOTE | 2021-02-13 15:33 | PT.OTN ---
Current Diagnoses Other chronic pain (02/13/21) Bunion of right foot (02/13/21) Bunion of left foot (02/13/21) Pain in right hip (02/13/21) Pain in right knee (02/13/21) Pain in left knee (02/13/21) Lumbago with sciatica, right side (02/13/21) Iliotibial band syndrome, right leg (02/13/21) Physical Therapy Treatment Note PT-OP-A Visit Information Start: 01/11/21 11:10 Freq: Status: Active Protocol: Document 02/13/21 11:15 AMB (Rec: 02/13/21 12:02 AMB [id number]) Out-Patient Physical Therapy Visit Information Visit Information Visit Type Treatment Note Visit Start Time 11:15 Visit Stop Time 12:15 Total Visit Minutes 55 Visit Number 7 PT-OP-B Current Condition Start: 01/11/21 11:10 Freq: Status: Active Protocol: Document 01/11/21 12:45 AMB (Rec: 01/11/21 12:59 AMB [id number]) Current Condition History of Current Condition Onset Date chronic Current Complaints R sided sciatica History of Current Condition Low back pain that radiates into the right leg. Got worse with not doing much over COVID. Getting massages and water walking. Ever since age 20 was riding in a truck and had increased back pain, then back pain went away for a long time but has come back. Has 5 [address] with one railing and then a 2 level house. Does stairs with step to gait pattern. Difficulty standing for more than 10 min or walking much at all. 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 Personal Factors Other Personal Factors That May Effect Ovarian CA, breast CA, Therapy/Recovery hypertension, TB, neck pain. BMI 39.5 PT-OP-C Subjective Start: 01/11/21 11:10 Freq: Status: Active Protocol: Document 02/13/21 11:15 AMB (Rec: 02/13/21 12:02 AMB [id number]) OP-PT Subjective Patient Comments Patient Comments Pt states pain has been up and down over the weekend, generally worse in the mornings. PT-OP-G Mobility & Gait Start: 01/11/21 11:10 Freq: Status: Active Protocol: Document 01/11/21 12:45 AMB (Rec: 01/11/21 15:26 AMB [email or web address]) OP Gait Assessment Comments Gait Comments Trendelenburg gait and hip circumduction with walking stick in L UE PT-OP-J Posture/Palpation/Skin Start: 01/11/21 11:10 Freq: Status: Active Protocol: Document 01/11/21 12:45 AMB (Rec: 01/11/21 15:26 AMB [email or web address]) Posture Evaluation Comments Posture Comments Severe lumbar sidebend to L Palpation Assessment Location Back Palpation Details Tenderness at R lumbar parapsinals but worse through gluteal muscles Skin Assessment Edema Assessment Bilateral Ankle Edema Type Pitting Edema Degree 4+ Subjective Edema Description Tightness Comments Pt states she gets summer time swelling in bilateral ankles but they are severely pitting PT-OP-K Range of Motion Start: 01/11/21 11:10 Freq: Status: Active Protocol: Document 01/11/21 12:45 AMB (Rec: 01/11/21 15:26 AMB [email or web address]) Lumbar Spine Range of Motion Lumbar Spine Active Degrees Testing Position Standing Flexion 50 Extension 5 Lateral Flexion Left 20 Lateral Flexion Right 2 Hip Goniometric Range of Motion Hip Right Active Comments R IR limited to neutral, other measurements bilaterally WFL PT-OP-M Strength Start: 01/11/21 11:10 Freq: Status: Active Protocol: Document 01/11/21 12:45 AMB (Rec: 01/11/21 15:34 AMB [email or web address]) Hip Strength Hip Manual Muscle Testing Left Flexion (L2) 4- Good- Extension (S1) 4- Good- Abduction 3- Fair- Right Flexion (L2) 2+ Poor+ Abduction 2- Poor- Knee Strength Knee Manual Muscle Testing Right Extension (L3) 4 Good Left Extension (L3) 3 Fair PT-OP-Q Treatments Start: 01/11/21 11:10 Freq: Status: Active Protocol: Document 02/13/21 11:15 AMB (Rec: 02/13/21 12:02 AMB [id number]) Therapeutic Exercises Supine Exercises march Supine Exercise Name core focus Side bilateral Reps/Minutes 15 heel slide Supine Exercise Name partial range Side bilateral Reps/Minutes 15 Comments core focus Pelvic Tilts Reps/Minutes 5x5 SH LTR Side bilateral Reps/Minutes 10x 10 SH Comments focus on core to help pull legs back up Sitting Exercises hip ER Sitting Exercise Name T band Resistance #3 Reps/Minutes 2x10 1 Sitting Exercise Name LAQ Side left Resistance 2# ankle weight Reps/Minutes 10 Manual Therapy Treatment Soft Tissue Mobilization Glutes Body Location R glute med Mobilization Type Myofascial Release,Sustained Pressure,Trigger Point Release Intensity/Depth Moderate Body Position Sidelying PT-OP-R Modalities Start: 01/11/21 11:10 Freq: Status: Active Protocol: Document 02/13/21 11:15 AMB (Rec: 02/13/21 15:27 AMB [email or web address]) Electric Stimulation Electric Stimulation Interferential Current (IFC) Body Location R hip Duration (Minutes) 15 Patient Position Sidelying Combined With Heat/Cold Hot Pack PT-OP-T Assessment and Plan Start: 01/11/21 11:10 Freq: Status: Active Protocol: Document 02/13/21 11:15 AMB (Rec: 02/13/21 12:02 AMB [id number]) Physical Therapy Assessment Goals Three Impairment HEP Short Term Goal (STG) Chayo will be independent and consistent with a HEP for LE strengthening. STG Duration 4 weeks Two Impairment Gait Short Term Goal (STG) Chayo will ambulate with her walking stick for 2 minutes without an increase in her pain. STG Duration 4 weeks Binder Technician Goal (LTG) Chayo will ascend and descend a flight of stairs with 1 railing wihtout an increase in baseline pain. LTG Duration 8 weeks One Impairment Strength Short Term Goal (STG) Chayo will improve her hip abduction strength bilaterally to at least 3/5. STG Duration 4 weeks Care Home Goal (LTG) Chayo will improve her LE strength so that she can move from sit to stand without heavy use of her upper extremities. LTG Duration 8 weeks Assessment Summary Assessment Chayo was very stiff in her right hip today. Couldn't get hip into abduction or into neutral extension which is worse than her baseline, but she feels her function varies considerably. She is going to be talking to her doctor about if there is anything else that can help with her pain or appropriate imaging while we try to progress her strengthening. Physical Therapy Plan Next Visit Focus/Plan Next Note Type Treatment Note Next Visit Plan cont to work on core progression and quad strength
--- NOTE | 2021-02-16 14:43 | PT.OTN ---
Current Diagnoses Other chronic pain (02/16/21) Bunion of right foot (02/16/21) Bunion of left foot (02/16/21) Pain in right hip (02/16/21) Pain in right knee (02/16/21) Pain in left knee (02/16/21) Lumbago with sciatica, right side (02/16/21) Iliotibial band syndrome, right leg (02/16/21) Physical Therapy Treatment Note PT-OP-A Visit Information Start: 01/11/21 11:10 Freq: Status: Active Protocol: Document 02/16/21 13:30 AMB (Rec: 02/16/21 14:42 AMB [id number]) Out-Patient Physical Therapy Visit Information Visit Information Visit Type Treatment Note Visit Start Time 13:30 Visit Stop Time 14:15 Total Visit Minutes 55 Visit Number 8 PT-OP-B Current Condition Start: 01/11/21 11:10 Freq: Status: Active Protocol: Document 01/11/21 12:45 AMB (Rec: 01/11/21 12:59 AMB [id number]) Current Condition History of Current Condition Onset Date chronic Current Complaints R sided sciatica History of Current Condition Low back pain that radiates into the right leg. Got worse with not doing much over COVID. Getting massages and water walking. Ever since age 20 was riding in a truck and had increased back pain, then back pain went away for a long time but has come back. Has 5 [address] with one railing and then a 2 level house. Does stairs with step to gait pattern. Difficulty standing for more than 10 min or walking much at all. 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 Personal Factors Other Personal Factors That May Effect Ovarian CA, breast CA, Therapy/Recovery hypertension, TB, neck pain. BMI 39.5 PT-OP-C Subjective Start: 01/11/21 11:10 Freq: Status: Active Protocol: Document 02/16/21 13:30 AMB (Rec: 02/16/21 14:42 AMB [id number]) OP-PT Subjective Patient Comments Patient Comments Pt has a doctors appointment scheduled for April. PT-OP-G Mobility & Gait Start: 01/11/21 11:10 Freq: Status: Active Protocol: Document 01/11/21 12:45 AMB (Rec: 01/11/21 15:26 AMB [email or web address]) OP Gait Assessment Comments Gait Comments Trendelenburg gait and hip circumduction with walking stick in L UE PT-OP-J Posture/Palpation/Skin Start: 01/11/21 11:10 Freq: Status: Active Protocol: Document 01/11/21 12:45 AMB (Rec: 01/11/21 15:26 AMB [email or web address]) Posture Evaluation Comments Posture Comments Severe lumbar sidebend to L Palpation Assessment Location Back Palpation Details Tenderness at R lumbar parapsinals but worse through gluteal muscles Skin Assessment Edema Assessment Bilateral Ankle Edema Type Pitting Edema Degree 4+ Subjective Edema Description Tightness Comments Pt states she gets summer time swelling in bilateral ankles but they are severely pitting PT-OP-K Range of Motion Start: 01/11/21 11:10 Freq: Status: Active Protocol: Document 01/11/21 12:45 AMB (Rec: 01/11/21 15:26 AMB [email or web address]) Lumbar Spine Range of Motion Lumbar Spine Active Degrees Testing Position Standing Flexion 50 Extension 5 Lateral Flexion Left 20 Lateral Flexion Right 2 Hip Goniometric Range of Motion Hip Right Active Comments R IR limited to neutral, other measurements bilaterally WFL PT-OP-M Strength Start: 01/11/21 11:10 Freq: Status: Active Protocol: Document 01/11/21 12:45 AMB (Rec: 01/11/21 15:34 AMB [email or web address]) Hip Strength Hip Manual Muscle Testing Left Flexion (L2) 4- Good- Extension (S1) 4- Good- Abduction 3- Fair- Right Flexion (L2) 2+ Poor+ Abduction 2- Poor- Knee Strength Knee Manual Muscle Testing Right Extension (L3) 4 Good Left Extension (L3) 3 Fair PT-OP-Q Treatments Start: 01/11/21 11:10 Freq: Status: Active Protocol: Document 02/16/21 13:30 AMB (Rec: 02/16/21 14:42 AMB [id number]) Cardio Equipment Recumbent Stepper (Sci-Fit) Duration (Minutes) 7 Resistance 2 Therapeutic Exercises Supine Exercises hooklying adduction/IR Reps/Minutes 2x10 Comments with small ball between knees- HEP review Pelvic Tilts Reps/Minutes 5x5 SH BKFO Side bilateral Equipment Used Lvl 2 Reps/Minutes 2x8 Comments focus on core Sitting Exercises 1 Sitting Exercise Name LAQ Side left Resistance 2# t band Reps/Minutes 10 Manual Therapy Treatment Soft Tissue Mobilization Glutes Body Location R glute med Mobilization Type Myofascial Release,Sustained Pressure,Trigger Point Release Intensity/Depth Moderate Body Position Sidelying PT-OP-R Modalities Start: 01/11/21 11:10 Freq: Status: Active Protocol: Document 02/16/21 13:30 AMB (Rec: 02/16/21 14:42 AMB [id number]) Electric Stimulation Electric Stimulation Interferential Current (IFC) Body Location R hip Duration (Minutes) 15 Patient Position Sidelying Combined With Heat/Cold Hot Pack PT-OP-T Assessment and Plan Start: 01/11/21 11:10 Freq: Status: Active Protocol: Document 02/16/21 13:30 AMB (Rec: 02/16/21 14:42 AMB [id number]) Physical Therapy Assessment Goals Three Impairment HEP Short Term Goal (STG) Chayo will be independent and consistent with a HEP for LE strengthening. STG Duration 4 weeks Two Impairment Gait Short Term Goal (STG) Chayo will ambulate with her walking stick for 2 minutes without an increase in her pain. STG Duration 4 weeks Care Home Goal (LTG) Chayo will ascend and descend a flight of stairs with 1 railing wihtout an increase in baseline pain. LTG Duration 8 weeks One Impairment Strength Short Term Goal (STG) Chayo will improve her hip abduction strength bilaterally to at least 3/5. STG Duration 4 weeks Care Home Goal (LTG) Chayo will improve her LE strength so that she can move from sit to stand without heavy use of her upper extremities. LTG Duration 8 weeks Assessment Summary Assessment Less stiffness in hip today, but pain continues to radiate down from R low back into gluteals. Physical Therapy Plan Next Visit Focus/Plan Next Note Type Treatment Note Next Visit Plan cont to work on core progression and quad strength
--- NOTE | 2021-02-22 15:37 | PT.OTN ---
Current Diagnoses Other chronic pain (02/22/21) Bunion of right foot (02/22/21) Bunion of left foot (02/22/21) Pain in right hip (02/22/21) Pain in right knee (02/22/21) Pain in left knee (02/22/21) Lumbago with sciatica, right side (02/22/21) Iliotibial band syndrome, right leg (02/22/21) Physical Therapy Treatment Note PT-OP-A Visit Information Start: 01/11/21 11:10 Freq: Status: Active Protocol: Document 02/22/21 14:31 AMB (Rec: 02/22/21 15:36 AMB [id number]) Out-Patient Physical Therapy Visit Information Visit Information Visit Type Treatment Note Visit Start Time 14:30 Visit Stop Time 15:30 Total Visit Minutes 60 Visit Number 9 PT-OP-B Current Condition Start: 01/11/21 11:10 Freq: Status: Active Protocol: Document 01/11/21 12:45 AMB (Rec: 01/11/21 12:59 AMB [id number]) Current Condition History of Current Condition Onset Date chronic Current Complaints R sided sciatica History of Current Condition Low back pain that radiates into the right leg. Got worse with not doing much over COVID. Getting massages and water walking. Ever since age 20 was riding in a truck and had increased back pain, then back pain went away for a long time but has come back. Has 5 [address] with one railing and then a 2 level house. Does stairs with step to gait pattern. Difficulty standing for more than 10 min or walking much at all. 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 Personal Factors Other Personal Factors That May Effect Ovarian CA, breast CA, Therapy/Recovery hypertension, TB, neck pain. BMI 39.5 PT-OP-C Subjective Start: 01/11/21 11:10 Freq: Status: Active Protocol: Document 02/22/21 14:31 AMB (Rec: 02/22/21 15:36 AMB [id number]) OP-PT Subjective Patient Comments Patient Comments Pt continues to be painful, but is improving with sleep. PT-OP-G Mobility & Gait Start: 01/11/21 11:10 Freq: Status: Active Protocol: Document 01/11/21 12:45 AMB (Rec: 01/11/21 15:26 AMB [email or web address]) OP Gait Assessment Comments Gait Comments Trendelenburg gait and hip circumduction with walking stick in L UE PT-OP-J Posture/Palpation/Skin Start: 01/11/21 11:10 Freq: Status: Active Protocol: Document 01/11/21 12:45 AMB (Rec: 01/11/21 15:26 AMB [email or web address]) Posture Evaluation Comments Posture Comments Severe lumbar sidebend to L Palpation Assessment Location Back Palpation Details Tenderness at R lumbar parapsinals but worse through gluteal muscles Skin Assessment Edema Assessment Bilateral Ankle Edema Type Pitting Edema Degree 4+ Subjective Edema Description Tightness Comments Pt states she gets summer time swelling in bilateral ankles but they are severely pitting PT-OP-K Range of Motion Start: 01/11/21 11:10 Freq: Status: Active Protocol: Document 01/11/21 12:45 AMB (Rec: 01/11/21 15:26 AMB [email or web address]) Lumbar Spine Range of Motion Lumbar Spine Active Degrees Testing Position Standing Flexion 50 Extension 5 Lateral Flexion Left 20 Lateral Flexion Right 2 Hip Goniometric Range of Motion Hip Right Active Comments R IR limited to neutral, other measurements bilaterally WFL PT-OP-M Strength Start: 01/11/21 11:10 Freq: Status: Active Protocol: Document 01/11/21 12:45 AMB (Rec: 01/11/21 15:34 AMB [email or web address]) Hip Strength Hip Manual Muscle Testing Left Flexion (L2) 4- Good- Extension (S1) 4- Good- Abduction 3- Fair- Right Flexion (L2) 2+ Poor+ Abduction 2- Poor- Knee Strength Knee Manual Muscle Testing Right Extension (L3) 4 Good Left Extension (L3) 3 Fair PT-OP-Q Treatments Start: 01/11/21 11:10 Freq: Status: Active Protocol: Document 02/22/21 14:31 AMB (Rec: 02/22/21 15:36 AMB [id number]) Cardio Equipment Recumbent Stepper (Sci-Fit) Duration (Minutes) 7 Resistance 2 Therapeutic Exercises Supine Exercises march Supine Exercise Name core focus Side bilateral Reps/Minutes 15 Comments painful on R hip to flex hip Sitting Exercises 2 Sitting Exercise Name LAQ Resistance 2# Reps/Minutes 2x10 Manual Therapy Treatment Soft Tissue Mobilization Glutes Body Location R glute med Mobilization Type Myofascial Release,Sustained Pressure,Trigger Point Release Intensity/Depth Moderate Body Position Sidelying Manual Traction long axis Body Position Sidelying Comments working into hip extension PT-OP-R Modalities Start: 01/11/21 11:10 Freq: Status: Active Protocol: Document 02/22/21 14:30 AMB (Rec: 02/22/21 15:37 AMB [id number]) Electric Stimulation Electric Stimulation Interferential Current (IFC) Body Location R hip Duration (Minutes) 15 Patient Position Sidelying Combined With Heat/Cold Hot Pack PT-OP-T Assessment and Plan Start: 01/11/21 11:10 Freq: Status: Active Protocol: Document 02/22/21 14:31 AMB (Rec: 02/22/21 15:36 AMB [id number]) Physical Therapy Assessment Assessment Summary Assessment Pt continues to lack neutral hip extension on the right, which continues to limit her gait. Knee pain on the right today. Does feel like sleeping is less painful now. Physical Therapy Plan Next Visit Focus/Plan Next Note Type Progress Note Next Visit Plan cont to work on core progression and quad strength
--- NOTE | 2021-02-24 15:13 | PT.OTN ---
Current Diagnoses Other chronic pain (02/24/21) Bunion of right foot (02/24/21) Bunion of left foot (02/24/21) Pain in right hip (02/24/21) Pain in right knee (02/24/21) Pain in left knee (02/24/21) Lumbago with sciatica, right side (02/24/21) Iliotibial band syndrome, right leg (02/24/21) Physical Therapy Treatment Note PT-OP-A Visit Information Start: 01/11/21 11:10 Freq: Status: Active Protocol: Document 02/24/21 13:45 AMB (Rec: 02/24/21 14:34 AMB [id number]) Out-Patient Physical Therapy Visit Information Visit Information Visit Type Progress Note Visit Start Time 13:45 Visit Stop Time 14:45 Total Visit Minutes 60 Visit Number 10 PT-OP-B Current Condition Start: 01/11/21 11:10 Freq: Status: Active Protocol: Document 01/11/21 12:45 AMB (Rec: 01/11/21 12:59 AMB [id number]) Current Condition History of Current Condition Onset Date chronic Current Complaints R sided sciatica History of Current Condition Low back pain that radiates into the right leg. Got worse with not doing much over COVID. Getting massages and water walking. Ever since age 20 was riding in a truck and had increased back pain, then back pain went away for a long time but has come back. Has 5 [address] with one railing and then a 2 level house. Does stairs with step to gait pattern. Difficulty standing for more than 10 min or walking much at all. 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 Personal Factors Other Personal Factors That May Effect Ovarian CA, breast CA, Therapy/Recovery hypertension, TB, neck pain. BMI 39.5 PT-OP-C Subjective Start: 01/11/21 11:10 Freq: Status: Active Protocol: Document 02/24/21 13:45 AMB (Rec: 02/24/21 14:34 AMB [id number]) OP-PT Subjective Patient Comments Patient Comments Pt has been noticing more popping in her back. Not painful.. PT-OP-G Mobility & Gait Start: 01/11/21 11:10 Freq: Status: Active Protocol: Document 01/11/21 12:45 AMB (Rec: 01/11/21 15:26 AMB [email or web address]) OP Gait Assessment Comments Gait Comments Trendelenburg gait and hip circumduction with walking stick in L UE PT-OP-J Posture/Palpation/Skin Start: 01/11/21 11:10 Freq: Status: Active Protocol: Document 01/11/21 12:45 AMB (Rec: 01/11/21 15:26 AMB [email or web address]) Posture Evaluation Comments Posture Comments Severe lumbar sidebend to L Palpation Assessment Location Back Palpation Details Tenderness at R lumbar parapsinals but worse through gluteal muscles Skin Assessment Edema Assessment Bilateral Ankle Edema Type Pitting Edema Degree 4+ Subjective Edema Description Tightness Comments Pt states she gets summer time swelling in bilateral ankles but they are severely pitting PT-OP-K Range of Motion Start: 01/11/21 11:10 Freq: Status: Active Protocol: Document 01/11/21 12:45 AMB (Rec: 01/11/21 15:26 AMB [email or web address]) Lumbar Spine Range of Motion Lumbar Spine Active Degrees Testing Position Standing Flexion 50 Extension 5 Lateral Flexion Left 20 Lateral Flexion Right 2 Hip Goniometric Range of Motion Hip Right Active Comments R IR limited to neutral, other measurements bilaterally WFL PT-OP-M Strength Start: 01/11/21 11:10 Freq: Status: Active Protocol: Document 01/11/21 12:45 AMB (Rec: 01/11/21 15:34 AMB [email or web address]) Hip Strength Hip Manual Muscle Testing Left Flexion (L2) 4- Good- Extension (S1) 4- Good- Abduction 3- Fair- Right Flexion (L2) 2+ Poor+ Abduction 2- Poor- Knee Strength Knee Manual Muscle Testing Right Extension (L3) 4 Good Left Extension (L3) 3 Fair PT-OP-Q Treatments Start: 01/11/21 11:10 Freq: Status: Active Protocol: Document 02/24/21 13:45 AMB (Rec: 02/24/21 15:11 AMB [email or web address]) Cardio Equipment Recumbent Stepper (Sci-Fit) Duration (Minutes) 7 Resistance 2 Gym Equipment Shuttle Recovery Unilateral Squats Resistance 25 Shuttle Recovery Platform Stable Reps/Time 2x10 Bilateral Squats Resistance 50 Shuttle Recovery Platform Stable Reps/Time 2x10 Manual Therapy Treatment Soft Tissue Mobilization Glutes Body Location R glute med Mobilization Type Myofascial Release,Sustained Pressure,Trigger Point Release Intensity/Depth Moderate Body Position Sidelying PT-OP-R Modalities Start: 01/11/21 11:10 Freq: Status: Active Protocol: Document 02/24/21 13:45 AMB (Rec: 02/24/21 15:12 AMB [email or web address]) Electric Stimulation Electric Stimulation Interferential Current (IFC) Body Location R hip Duration (Minutes) 15 Patient Position Sidelying Combined With Heat/Cold Hot Pack PT-OP-T Assessment and Plan Start: 01/11/21 11:10 Freq: Status: Active Protocol: Document 02/24/21 13:45 AMB (Rec: 02/24/21 14:34 AMB [id number]) Physical Therapy Assessment Goals Three Impairment HEP Short Term Goal (STG) Chayo will be independent and consistent with a HEP for LE strengthening. STG Duration 4 weeks Two Impairment Gait Short Term Goal (STG) Chayo will ambulate with her walking stick for 2 minutes without an increase in her pain. STG Duration 4 weeks [employer] Goal (LTG) Chayo will ascend and descend a flight of stairs with 1 railing wihtout an increase in baseline pain. LTG Duration 8 weeks One Impairment Strength Short Term Goal (STG) Chayo will improve her hip abduction strength bilaterally to at least 3/5. STG Duration 4 weeks [facility] Goal (LTG) Chayo will improve her LE strength so that she can move from sit to stand without heavy use of her upper extremities. LTG Duration 8 weeks Assessment Summary Assessment Chayo continues to have pain/ weakness, but was able to tolerate the leg press, but fatigues quickly bilaterally. Physical Therapy Plan Next Visit Focus/Plan Next Note Type Treatment Note Next Visit Plan cont to work on core progression and quad strength
--- NOTE | 2021-02-24 15:20 | PT.OPPN ---
Current Diagnoses Other chronic pain (02/24/21) Bunion of right foot (02/24/21) Bunion of left foot (02/24/21) Pain in right hip (02/24/21) Pain in right knee (02/24/21) Pain in left knee (02/24/21) Lumbago with sciatica, right side (02/24/21) Iliotibial band syndrome, right leg (02/24/21) Physical Therapy Progress Note PT-OP-A Visit Information Start: 01/11/21 11:10 Freq: Status: Active Protocol: Document 02/24/21 13:45 AMB (Rec: 02/24/21 14:34 AMB [id number]) Out-Patient Physical Therapy Visit Information Visit Information Visit Type Progress Note Visit Start Time 13:45 Visit Stop Time 14:45 Total Visit Minutes 60 Visit Number 10 PT-OP-B Current Condition Start: 01/11/21 11:10 Freq: Status: Active Protocol: Document 01/11/21 12:45 AMB (Rec: 01/11/21 12:59 AMB [id number]) Current Condition History of Current Condition Onset Date chronic Current Complaints R sided sciatica History of Current Condition Low back pain that radiates into the right leg. Got worse with not doing much over COVID. Getting massages and water walking. Ever since age 20 was riding in a truck and had increased back pain, then back pain went away for a long time but has come back. Has 5 [address] with one railing and then a 2 level house. Does stairs with step to gait pattern. Difficulty standing for more than 10 min or walking much at all. 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 Personal Factors Other Personal Factors That May Effect Ovarian CA, breast CA, Therapy/Recovery hypertension, TB, neck pain. BMI 39.5 PT-OP-C Subjective Start: 01/11/21 11:10 Freq: Status: Active Protocol: Document 02/24/21 13:45 AMB (Rec: 02/24/21 14:34 AMB [id number]) OP-PT Subjective Patient Comments Patient Comments Pt has been noticing more popping in her back. Not painful.. PT-OP-G Mobility & Gait Start: 01/11/21 11:10 Freq: Status: Active Protocol: Document 01/11/21 12:45 AMB (Rec: 01/11/21 15:26 AMB [email or web address]) OP Gait Assessment Comments Gait Comments Trendelenburg gait and hip circumduction with walking stick in L UE PT-OP-J Posture/Palpation/Skin Start: 01/11/21 11:10 Freq: Status: Active Protocol: Document 01/11/21 12:45 AMB (Rec: 01/11/21 15:26 AMB [email or web address]) Posture Evaluation Comments Posture Comments Severe lumbar sidebend to L Palpation Assessment Location Back Palpation Details Tenderness at R lumbar parapsinals but worse through gluteal muscles Skin Assessment Edema Assessment Bilateral Ankle Edema Type Pitting Edema Degree 4+ Subjective Edema Description Tightness Comments Pt states she gets summer time swelling in bilateral ankles but they are severely pitting PT-OP-K Range of Motion Start: 01/11/21 11:10 Freq: Status: Active Protocol: Document 01/11/21 12:45 AMB (Rec: 01/11/21 15:26 AMB [email or web address]) Lumbar Spine Range of Motion Lumbar Spine Active Degrees Testing Position Standing Flexion 50 Extension 5 Lateral Flexion Left 20 Lateral Flexion Right 2 Hip Goniometric Range of Motion Hip Measured in Degrees Right Active Comments R IR limited to neutral, other measurements bilaterally WFL PT-OP-M Strength Start: 01/11/21 11:10 Freq: Status: Active Protocol: Document 01/11/21 12:45 AMB (Rec: 01/11/21 15:34 AMB [email or web address]) Hip Strength Hip Manual Muscle Testing Left Flexion (L2) 4- Good- Extension (S1) 4- Good- Abduction 3- Fair- Right Flexion (L2) 2+ Poor+ Abduction 2- Poor- Knee Strength Knee Manual Muscle Testing Right Extension (L3) 4 Good Left Extension (L3) 3 Fair PT-OP-T Assessment and Plan Start: 01/11/21 11:10 Freq: Status: Active Protocol: Document 02/24/21 13:45 AMB (Rec: 02/24/21 14:34 AMB [id number]) Physical Therapy Assessment Goals Three Impairment HEP Short Term Goal (STG) Chayo will be independent and consistent with a HEP for LE strengthening. 02/24: PROGRESS MADE STG Duration 4 weeks Two Impairment Gait Short Term Goal (STG) Chayo will ambulate with her walking stick for 2 minutes without an increase in her pain. STG Duration 4 weeks Director Of Vital Statistics Goal (LTG) Chayo will ascend and descend a flight of stairs with 1 railing wihtout an increase in baseline pain. LTG Duration 8 weeks One Impairment Strength Short Term Goal (STG) Chayo will improve her hip abduction strength bilaterally to at least 3/5. STG Duration 4 weeks [facility] Goal (LTG) Chayo will improve her LE strength so that she can move from sit to stand without heavy use of her upper extremities. PROGRESS MADE LTG Duration 8 weeks Assessment Summary Assessment Chayo continues to have pain/ weakness, but was able to tolerate the leg press, but fatigues quickly bilaterally. She is slowly progressing with her strength but continues to have significant weakness in R hip abductors, L quads and cannot extend her R hip to neutral. Physical Therapy Plan Next Visit Focus/Plan Next Note Type Treatment Note Next Visit Plan cont to work on core progression and quad strength
--- NOTE | 2021-03-03 12:02 | PT.OTN ---
Current Diagnoses Other chronic pain (03/03/21) Bunion of right foot (03/03/21) Bunion of left foot (03/03/21) Pain in right hip (03/03/21) Pain in right knee (03/03/21) Pain in left knee (03/03/21) Lumbago with sciatica, right side (03/03/21) Iliotibial band syndrome, right leg (03/03/21) Physical Therapy Treatment Note PT-OP-A Visit Information Start: 01/11/21 11:10 Freq: Status: Active Protocol: Document 03/03/21 11:15 MA (Rec: 03/03/21 12:02 MA [id number]) Out-Patient Physical Therapy Visit Information Visit Information Visit Type Treatment Note Visit Start Time 11:15 Visit Stop Time 12:10 Total Visit Minutes 55 Visit Number 11 Number of INTERNAL CARVER Visits 1 PT-OP-B Current Condition Start: 01/11/21 11:10 Freq: Status: Active Protocol: Document 01/11/21 12:45 AMB (Rec: 01/11/21 12:59 AMB [id number]) Current Condition History of Current Condition Onset Date chronic Current Complaints R sided sciatica History of Current Condition Low back pain that radiates into the right leg. Got worse with not doing much over COVID. Getting massages and water walking. Ever since age 20 was riding in a truck and had increased back pain, then back pain went away for a long time but has come back. Has 5 [address] with one railing and then a 2 level house. Does stairs with step to gait pattern. Difficulty standing for more than 10 min or walking much at all. 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 Personal Factors Other Personal Factors That May Effect Ovarian CA, breast CA, Therapy/Recovery hypertension, TB, neck pain. BMI 39.5 PT-OP-C Subjective Start: 01/11/21 11:10 Freq: Status: Active Protocol: Document 03/03/21 11:15 MA (Rec: 03/03/21 12:02 MA [id number]) OP-PT Subjective Patient Comments Patient Comments Pt went to massage therapist yesterday and they tried cupping. Cupping made a zing to her R knee so they d/c. PT-OP-G Mobility & Gait Start: 01/11/21 11:10 Freq: Status: Active Protocol: Document 01/11/21 12:45 AMB (Rec: 01/11/21 15:26 AMB [email or web address]) OP Gait Assessment Comments Gait Comments Trendelenburg gait and hip circumduction with walking stick in L UE PT-OP-J Posture/Palpation/Skin Start: 01/11/21 11:10 Freq: Status: Active Protocol: Document 01/11/21 12:45 AMB (Rec: 01/11/21 15:26 AMB [email or web address]) Posture Evaluation Comments Posture Comments Severe lumbar sidebend to L Palpation Assessment Location Back Palpation Details Tenderness at R lumbar parapsinals but worse through gluteal muscles Skin Assessment Edema Assessment Bilateral Ankle Edema Type Pitting Edema Degree 4+ Subjective Edema Description Tightness Comments Pt states she gets summer time swelling in bilateral ankles but they are severely pitting PT-OP-K Range of Motion Start: 01/11/21 11:10 Freq: Status: Active Protocol: Document 01/11/21 12:45 AMB (Rec: 01/11/21 15:26 AMB [email or web address]) Lumbar Spine Range of Motion Lumbar Spine Active Degrees Testing Position Standing Flexion 50 Extension 5 Lateral Flexion Left 20 Lateral Flexion Right 2 Hip Goniometric Range of Motion Hip Right Active Comments R IR limited to neutral, other measurements bilaterally WFL PT-OP-M Strength Start: 01/11/21 11:10 Freq: Status: Active Protocol: Document 01/11/21 12:45 AMB (Rec: 01/11/21 15:34 AMB [email or web address]) Hip Strength Hip Manual Muscle Testing Left Flexion (L2) 4- Good- Extension (S1) 4- Good- Abduction 3- Fair- Right Flexion (L2) 2+ Poor+ Abduction 2- Poor- Knee Strength Knee Manual Muscle Testing Right Extension (L3) 4 Good Left Extension (L3) 3 Fair PT-OP-Q Treatments Start: 01/11/21 11:10 Freq: Status: Active Protocol: Document 03/03/21 11:15 MA (Rec: 03/03/21 12:02 MA [id number]) Cardio Equipment Recumbent Stepper (Sci-Fit) Duration (Minutes) 7 Resistance 2 Seat Position 9 Gym Equipment Shuttle Recovery Unilateral Squats Resistance 25 Shuttle Recovery Platform Stable Reps/Time 2x10 Bilateral Squats Resistance 50 Shuttle Recovery Platform Stable Reps/Time 2x10 Manual Therapy Treatment Soft Tissue Mobilization Glutes Body Location R glute med Mobilization Type Myofascial Release,Sustained Pressure,Trigger Point Release Intensity/Depth Moderate Body Position Sidelying PT-OP-R Modalities Start: 01/11/21 11:10 Freq: Status: Active Protocol: Document 03/03/21 11:15 MA (Rec: 03/03/21 12:02 MA [id number]) Electric Stimulation Electric Stimulation Interferential Current (IFC) Body Location R hip Duration (Minutes) 15 Patient Position Sidelying Combined With Heat/Cold Hot Pack PT-OP-T Assessment and Plan Start: 01/11/21 11:10 Freq: Status: Active Protocol: Document 03/03/21 11:15 MA (Rec: 03/03/21 12:02 MA [id number]) Physical Therapy Assessment Goals Three Impairment HEP Short Term Goal (STG) Chayo will be independent and consistent with a HEP for LE strengthening. 10: PROGRESS MADE STG Duration 4 weeks Two Impairment Gait Short Term Goal (STG) Chayo will ambulate with her walking stick for 2 minutes without an increase in her pain. STG Duration 4 weeks Subway Car Repairer Goal (LTG) Chayo will ascend and descend a flight of stairs with 1 railing wihtout an increase in baseline pain. LTG Duration 8 weeks One Impairment Strength Short Term Goal (STG) Chayo will improve her hip abduction strength bilaterally to at least 3/5. STG Duration 4 weeks Custodial Goal (LTG) Chayo will improve her LE strength so that she can move from sit to stand without heavy use of her upper extremities. PROGRESS MADE LTG Duration 8 weeks Assessment Summary Assessment Chayo arrives with bilateral walking sticks that are off in height. Adjusted pt's walking sticks to be even for improved gait. Pt did well on leg press and did not c/o any pain or fatigue. Pt states she has electrical stimulator she bought for home but she doesn't know how to place it or use it. Asked pt to bring it in next session for review. Physical Therapy Plan Frequency and Duration Frequency of Treatment 2x/Week Duration of Treatment 8 weeks Plan of Care Start Date 01/11/21 Plan of Care End Date 03/08/21 Therapeutic Interventions Therapeutic Interventions Balance Training,Gait Training ,Home Exercise Program,Joint Mobilizations,Manual Therapy, Neuromuscular Re-education, Self-Care/Home Management,Soft Tissue Mobilization, Therapeutic Activities, Therapeutic Exercises Modalities Cold Pack/Ice Massage,Electric Stimulation,Hot Packs, Traction- Mechanical Next Visit Focus/Plan Next Note Type Progress Note Next Visit Plan update POC next session cont to work on core progression and quad strength
--- NOTE | 2021-03-07 15:53 | PT.OTN ---
Current Diagnoses Other chronic pain (03/07/21) Bunion of right foot (03/07/21) Bunion of left foot (03/07/21) Pain in right hip (03/07/21) Pain in right knee (03/07/21) Pain in left knee (03/07/21) Lumbago with sciatica, right side (03/07/21) Iliotibial band syndrome, right leg (03/07/21) Physical Therapy Treatment Note PT-OP-A Visit Information Start: 01/11/21 11:10 Freq: Status: Active Protocol: Document 03/07/21 14:30 AMB (Rec: 03/07/21 15:31 AMB [id number]) Out-Patient Physical Therapy Visit Information Visit Information Visit Type Progress Note Visit Start Time 14:30 Visit Stop Time 15:15 Total Visit Minutes 45 Visit Number 12 Number of SHRIMP PEELING MACHINE TENDER Visits 0 PT-OP-B Current Condition Start: 01/11/21 11:10 Freq: Status: Active Protocol: Document 01/11/21 12:45 AMB (Rec: 01/11/21 12:59 AMB [id number]) Current Condition History of Current Condition Onset Date chronic Current Complaints R sided sciatica History of Current Condition Low back pain that radiates into the right leg. Got worse with not doing much over COVID. Getting massages and water walking. Ever since age 20 was riding in a truck and had increased back pain, then back pain went away for a long time but has come back. Has 5 [address] with one railing and then a 2 level house. Does stairs with step to gait pattern. Difficulty standing for more than 10 min or walking much at all. 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 Personal Factors Other Personal Factors That May Effect Ovarian CA, breast CA, Therapy/Recovery hypertension, TB, neck pain. BMI 39.5 PT-OP-C Subjective Start: 01/11/21 11:10 Freq: Status: Active Protocol: Document 03/07/21 14:30 AMB (Rec: 03/07/21 15:46 AMB [email or web address]) OP-PT Subjective Patient Comments Patient Comments Pt comes in with increased R knee pain today PT-OP-G Mobility & Gait Start: 01/11/21 11:10 Freq: Status: Active Protocol: Document 01/11/21 12:45 AMB (Rec: 01/11/21 15:26 AMB [email or web address]) OP Gait Assessment Comments Gait Comments Trendelenburg gait and hip circumduction with walking stick in L UE PT-OP-J Posture/Palpation/Skin Start: 01/11/21 11:10 Freq: Status: Active Protocol: Document 01/11/21 12:45 AMB (Rec: 01/11/21 15:26 AMB [email or web address]) Posture Evaluation Comments Posture Comments Severe lumbar sidebend to L Palpation Assessment Location Back Palpation Details Tenderness at R lumbar parapsinals but worse through gluteal muscles Skin Assessment Edema Assessment Bilateral Ankle Edema Type Pitting Edema Degree 4+ Subjective Edema Description Tightness Comments Pt states she gets summer time swelling in bilateral ankles but they are severely pitting PT-OP-K Range of Motion Start: 01/11/21 11:10 Freq: Status: Active Protocol: Document 01/11/21 12:45 AMB (Rec: 01/11/21 15:26 AMB [email or web address]) Lumbar Spine Range of Motion Lumbar Spine Active Degrees Testing Position Standing Flexion 50 Extension 5 Lateral Flexion Left 20 Lateral Flexion Right 2 Hip Goniometric Range of Motion Hip Right Active Comments R IR limited to neutral, R hip extension limited unable to get to neutral, missing approximately 15 degrees. PT-OP-M Strength Start: 01/11/21 11:10 Freq: Status: Active Protocol: Document 01/11/21 12:45 AMB (Rec: 01/11/21 15:34 AMB [email or web address]) Hip Strength Hip Manual Muscle Testing Left Flexion (L2) 4- Good- Extension (S1) 4- Good- Abduction 3- Fair- Right Flexion (L2) 2+ Poor+ Abduction 2- Poor- Knee Strength Knee Manual Muscle Testing Right Extension (L3) 4 Good Left Extension (L3) 3 Fair PT-OP-Q Treatments Start: 01/11/21 11:10 Freq: Status: Active Protocol: Document 03/07/21 14:30 AMB (Rec: 03/07/21 15:46 AMB [email or web address]) Cardio Equipment Recumbent Stepper (Sci-Fit) Duration (Minutes) 7 Resistance 2 Seat Position 9 Manual Therapy Treatment Soft Tissue Mobilization 1 Body Location R knee Intensity/Depth Moderate Body Position Hooklying Manual Traction long axis Body Position Sidelying Comments working into hip extension PT-OP-R Modalities Start: 01/11/21 11:10 Freq: Status: Active Protocol: Document 03/07/21 14:30 AMB (Rec: 03/07/21 15:46 AMB [email or web address]) Electric Stimulation Electric Stimulation Interferential Current (IFC) Body Location R hip Duration (Minutes) 15 Patient Position Sidelying Comments Instructed pt in how to use her home TENS unit PT-OP-T Assessment and Plan Start: 01/11/21 11:10 Freq: Status: Active Protocol: Document 03/07/21 14:30 AMB (Rec: 03/07/21 15:31 AMB [id number]) Physical Therapy Assessment Goals Three Impairment HEP Short Term Goal (STG) Chayo will be independent and consistent with a HEP for LE strengthening. 03/07: PROGRESS MADE STG Duration 4 weeks Two Impairment Gait Short Term Goal (STG) Chayo will ambulate with her walking stick for 2 minutes without an increase in her pain. 03/07: KNEE and HIP pain continue STG Duration 4 weeks Nursing Home Goal (LTG) Chayo will ascend and descend a flight of stairs with 1 railing wihtout an increase in baseline pain. LTG Duration 8 weeks One Impairment Strength Short Term Goal (STG) Chayo will improve her hip abduction strength bilaterally to at least 3/5. 03/07: Variable based on pain STG Duration 4 weeks Nursing Home Goal (LTG) Chayo will improve her LE strength so that she can move from sit to stand without heavy use of her upper extremities. PROGRESS MADE LTG Duration 8 weeks Assessment Summary Assessment Chayo continues to have right sided hip and knee pain with L knee weakness. This PT is concerned about her lumbar spine and the patient does have a follow up appointment with her PCP in April to discuss this, given her slow progress in PT and the radiating nature of her pain/ weakness. While she is working on strengthening, her gait is very slow, painful, and she requires bilateral UE support due to the pain and weakness. While this is a chronic problem for her, she could benefit from further workup if PT progress continues to be slow. Physical Therapy Plan Frequency and Duration Frequency of Treatment 2x/Week Duration of Treatment 8 weeks Plan of Care Start Date 03/07/21 Plan of Care End Date 05/02/21 Therapeutic Interventions Therapeutic Interventions Balance Training,Gait Training ,Home Exercise Program,Joint Mobilizations,Manual Therapy, Neuromuscular Re-education, Self-Care/Home Management,Soft Tissue Mobilization, Therapeutic Activities, Therapeutic Exercises Modalities Cold Pack/Ice Massage,Electric Stimulation,Hot Packs, Traction- Mechanical Next Visit Focus/Plan Next Note Type Treatment Note Next Visit Plan hip, knee, and core stabilization with gait training
--- NOTE | 2021-03-07 15:54 | PT.OPPOC ---
Physical, Occupational & Speech Therapy At [facility] Current Diagnoses Other chronic pain (03/07/21) Bunion of right foot (03/07/21) Bunion of left foot (03/07/21) Pain in right hip (03/07/21) Pain in right knee (03/07/21) Pain in left knee (03/07/21) Lumbago with sciatica, right side (03/07/21) Iliotibial band syndrome, right leg (03/07/21) Visit Care Team Role Provider Type Subhash Mendoza DO Referring Provider Physician Specialty: [facility] Address: [address] [place] [address], [id number] Email: ENEIDA Bradley Attending Provider Advanced Teller Coordinator Primary Care Provider Specialty: [facility] Address: [address] [place] [address], [id number] Email: [email or web address] Plan Of Care PT-OP-T Assessment and Plan Start: 01/11/21 11:10 Freq: Status: Active Protocol: Document 03/07/21 14:30 AMB (Rec: 03/07/21 15:31 AMB [id number]) Physical Therapy Assessment Goals Three Impairment HEP Short Term Goal (STG) Chayo will be independent and consistent with a HEP for LE strengthening. 03/07: PROGRESS MADE STG Duration 4 weeks Two Impairment Gait Short Term Goal (STG) Chayo will ambulate with her walking stick for 2 minutes without an increase in her pain. 03/07: KNEE and HIP pain continue STG Duration 4 weeks Prison Goal (LTG) Chayo will ascend and descend a flight of stairs with 1 railing wihtout an increase in baseline pain. LTG Duration 8 weeks One Impairment Strength Short Term Goal (STG) Chayo will improve her hip abduction strength bilaterally to at least 3/5. 03/07: Variable based on pain STG Duration 4 weeks Powertrain Design Engineer Goal (LTG) Chayo will improve her LE strength so that she can move from sit to stand without heavy use of her upper extremities. PROGRESS MADE LTG Duration 8 weeks Assessment Summary Assessment Chayo continues to have right sided hip and knee pain with L knee weakness. This PT is concerned about her lumbar spine and the patient does have a follow up appointment with her PCP in April to discuss this, given her slow progress in PT and the radiating nature of her pain/ weakness. While she is working on strengthening, her gait is very slow, painful, and she requires bilateral UE support due to the pain and weakness. While this is a chronic problem for her, she could benefit from further workup if PT progress continues to be slow. Physical Therapy Plan Frequency and Duration Frequency of Treatment 2x/Week Duration of Treatment 8 weeks Plan of Care Start Date 03/07/21 Plan of Care End Date 05/02/21 Therapeutic Interventions Therapeutic Interventions Balance Training,Gait Training ,Home Exercise Program,Joint Mobilizations,Manual Therapy, Neuromuscular Re-education, Self-Care/Home Management,Soft Tissue Mobilization, Therapeutic Activities, Therapeutic Exercises Modalities Cold Pack/Ice Massage,Electric Stimulation,Hot Packs, Traction- Mechanical Next Visit Focus/Plan Next Note Type Treatment Note Next Visit Plan hip, knee, and core stabilization with gait training Plan of Care Dates Plan of Care Start Date 03/07/21 Plan of Care End Date 05/02/21 Electronically Signed by: Caroline Calloway, PT 03/07/21 [id number] Please Sign and Return: I have reviewed this Plan of Care and certify that the skilled therapy services above are required to meet the patient?s needs. Physician Signature Date Printed Name and Credentials Clinical Instructor Signature Printed Name and Credentials
--- NOTE | 2021-03-13 15:55 | PT.OTN ---
Current Diagnoses Other chronic pain (03/13/21) Bunion of right foot (03/13/21) Bunion of left foot (03/13/21) Pain in right hip (03/13/21) Pain in right knee (03/13/21) Pain in left knee (03/13/21) Lumbago with sciatica, right side (03/13/21) Iliotibial band syndrome, right leg (03/13/21) Physical Therapy Treatment Note PT-OP-A Visit Information Start: 01/11/21 11:10 Freq: Status: Active Protocol: Document 03/13/21 14:30 AMB (Rec: 03/13/21 15:55 AMB [id number]) Out-Patient Physical Therapy Visit Information Visit Information Visit Type Treatment Note Visit Start Time 14:30 Visit Stop Time 15:15 Total Visit Minutes 45 Visit Number 13 PT-OP-B Current Condition Start: 01/11/21 11:10 Freq: Status: Active Protocol: Document 01/11/21 12:45 AMB (Rec: 01/11/21 12:59 AMB [id number]) Current Condition History of Current Condition Onset Date chronic Current Complaints R sided sciatica History of Current Condition Low back pain that radiates into the right leg. Got worse with not doing much over COVID. Getting massages and water walking. Ever since age 20 was riding in a truck and had increased back pain, then back pain went away for a long time but has come back. Has 5 [address] with one railing and then a 2 level house. Does stairs with step to gait pattern. Difficulty standing for more than 10 min or walking much at all. 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 Personal Factors Other Personal Factors That May Effect Ovarian CA, breast CA, Therapy/Recovery hypertension, TB, neck pain. BMI 39.5 PT-OP-C Subjective Start: 01/11/21 11:10 Freq: Status: Active Protocol: Document 03/13/21 14:30 AMB (Rec: 03/13/21 15:55 AMB [id number]) OP-PT Subjective Patient Comments Patient Comments Pt had a fall last week, in the bathroom. PT-OP-G Mobility & Gait Start: 01/11/21 11:10 Freq: Status: Active Protocol: Document 01/11/21 12:45 AMB (Rec: 01/11/21 15:26 AMB [email or web address]) OP Gait Assessment Comments Gait Comments Trendelenburg gait and hip circumduction with walking stick in L UE PT-OP-J Posture/Palpation/Skin Start: 01/11/21 11:10 Freq: Status: Active Protocol: Document 01/11/21 12:45 AMB (Rec: 01/11/21 15:26 AMB [email or web address]) Posture Evaluation Comments Posture Comments Severe lumbar sidebend to L Palpation Assessment Location Back Palpation Details Tenderness at R lumbar parapsinals but worse through gluteal muscles Skin Assessment Edema Assessment Bilateral Ankle Edema Type Pitting Edema Degree 4+ Subjective Edema Description Tightness Comments Pt states she gets summer time swelling in bilateral ankles but they are severely pitting PT-OP-K Range of Motion Start: 01/11/21 11:10 Freq: Status: Active Protocol: Document 01/11/21 12:45 AMB (Rec: 01/11/21 15:26 AMB [email or web address]) Lumbar Spine Range of Motion Lumbar Spine Active Degrees Testing Position Standing Flexion 50 Extension 5 Lateral Flexion Left 20 Lateral Flexion Right 2 Hip Goniometric Range of Motion Hip Right Active Comments R IR limited to neutral, other measurements bilaterally WFL PT-OP-M Strength Start: 01/11/21 11:10 Freq: Status: Active Protocol: Document 01/11/21 12:45 AMB (Rec: 01/11/21 15:34 AMB [email or web address]) Hip Strength Hip Manual Muscle Testing Left Flexion (L2) 4- Good- Extension (S1) 4- Good- Abduction 3- Fair- Right Flexion (L2) 2+ Poor+ Abduction 2- Poor- Knee Strength Knee Manual Muscle Testing Right Extension (L3) 4 Good Left Extension (L3) 3 Fair PT-OP-Q Treatments Start: 01/11/21 11:10 Freq: Status: Active Protocol: Document 03/13/21 14:30 AMB (Rec: 03/13/21 15:55 AMB [id number]) Cardio Equipment Recumbent Stepper (Sci-Fit) Duration (Minutes) 7 Resistance 2 Seat Position 13 Therapeutic Exercises Supine Exercises active hamstring stretch Reps/Minutes 30x2 Pelvic Tilts Reps/Minutes 5x5 SH Manual Therapy Treatment Soft Tissue Mobilization 1 Body Location R knee Intensity/Depth Moderate Body Position Hooklying Glutes Body Location R glute med Mobilization Type Myofascial Release,Sustained Pressure,Trigger Point Release Intensity/Depth Moderate Body Position Sidelying Manual Traction long axis Body Position Sidelying Comments working into hip extension PT-OP-R Modalities Start: 01/11/21 11:10 Freq: Status: Active Protocol: Document 03/13/21 14:30 AMB (Rec: 03/13/21 15:55 AMB [id number]) Electric Stimulation Electric Stimulation Interferential Current (IFC) Body Location R hip Duration (Minutes) 15 Patient Position Sidelying Comments with moist heat, ice on R knee PT-OP-T Assessment and Plan Start: 01/11/21 11:10 Freq: Status: Active Protocol: Document 03/13/21 14:30 AMB (Rec: 03/13/21 15:55 AMB [id number]) Physical Therapy Assessment Assessment Summary Assessment Chayo was more painful today due to her fall. Discussed ADs and recommended a 4WW, she is going to get one on Saturday. Physical Therapy Plan Frequency and Duration Frequency of Treatment 2x/Week Duration of Treatment 8 weeks Plan of Care Start Date 03/07/21 Plan of Care End Date 05/02/21 Next Visit Focus/Plan Next Note Type Treatment Note Next Visit Plan hip, knee, and core stabilization with gait training
--- NOTE | 2021-03-16 15:40 | PT.OTN ---
Current Diagnoses Other chronic pain (03/16/21) Bunion of right foot (03/16/21) Bunion of left foot (03/16/21) Pain in right hip (03/16/21) Pain in right knee (03/16/21) Pain in left knee (03/16/21) Lumbago with sciatica, right side (03/16/21) Iliotibial band syndrome, right leg (03/16/21) Physical Therapy Treatment Note PT-OP-A Visit Information Start: 01/11/21 11:10 Freq: Status: Active Protocol: Document 03/16/21 14:30 AMB (Rec: 03/16/21 14:43 AMB [id number]) Out-Patient Physical Therapy Visit Information Visit Information Visit Type Treatment Note Visit Start Time 14:30 Visit Stop Time 15:15 Total Visit Minutes 45 Visit Number 14 PT-OP-B Current Condition Start: 01/11/21 11:10 Freq: Status: Active Protocol: Document 01/11/21 12:45 AMB (Rec: 01/11/21 12:59 AMB [id number]) Current Condition History of Current Condition Onset Date chronic Current Complaints R sided sciatica History of Current Condition Low back pain that radiates into the right leg. Got worse with not doing much over COVID. Getting massages and water walking. Ever since age 20 was riding in a truck and had increased back pain, then back pain went away for a long time but has come back. Has 5 [address] with one railing and then a 2 level house. Does stairs with step to gait pattern. Difficulty standing for more than 10 min or walking much at all. 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 Personal Factors Other Personal Factors That May Effect Ovarian CA, breast CA, Therapy/Recovery hypertension, TB, neck pain. BMI 39.5 PT-OP-C Subjective Start: 01/11/21 11:10 Freq: Status: Active Protocol: Document 03/16/21 14:30 AMB (Rec: 03/16/21 14:43 AMB [id number]) OP-PT Subjective Patient Comments Patient Comments Pt is going to get a walker this weekend. PT-OP-G Mobility & Gait Start: 01/11/21 11:10 Freq: Status: Active Protocol: Document 01/11/21 12:45 AMB (Rec: 01/11/21 15:26 AMB [email or web address]) OP Gait Assessment Comments Gait Comments Trendelenburg gait and hip circumduction with walking stick in L UE PT-OP-J Posture/Palpation/Skin Start: 01/11/21 11:10 Freq: Status: Active Protocol: Document 01/11/21 12:45 AMB (Rec: 01/11/21 15:26 AMB [email or web address]) Posture Evaluation Comments Posture Comments Severe lumbar sidebend to L Palpation Assessment Location Back Palpation Details Tenderness at R lumbar parapsinals but worse through gluteal muscles Skin Assessment Edema Assessment Bilateral Ankle Edema Type Pitting Edema Degree 4+ Subjective Edema Description Tightness Comments Pt states she gets summer time swelling in bilateral ankles but they are severely pitting PT-OP-K Range of Motion Start: 01/11/21 11:10 Freq: Status: Active Protocol: Document 01/11/21 12:45 AMB (Rec: 01/11/21 15:26 AMB [email or web address]) Lumbar Spine Range of Motion Lumbar Spine Active Degrees Testing Position Standing Flexion 50 Extension 5 Lateral Flexion Left 20 Lateral Flexion Right 2 Hip Goniometric Range of Motion Hip Right Active Comments R IR limited to neutral, other measurements bilaterally WFL PT-OP-M Strength Start: 01/11/21 11:10 Freq: Status: Active Protocol: Document 01/11/21 12:45 AMB (Rec: 01/11/21 15:34 AMB [email or web address]) Hip Strength Hip Manual Muscle Testing Left Flexion (L2) 4- Good- Extension (S1) 4- Good- Abduction 3- Fair- Right Flexion (L2) 2+ Poor+ Abduction 2- Poor- Knee Strength Knee Manual Muscle Testing Right Extension (L3) 4 Good Left Extension (L3) 3 Fair PT-OP-Q Treatments Start: 01/11/21 11:10 Freq: Status: Active Protocol: Document 03/16/21 14:30 AMB (Rec: 03/16/21 15:39 AMB [id number]) Cardio Equipment Recumbent Stepper (Sci-Fit) Duration (Minutes) 7 Resistance 2 Seat Position 11 Gym Equipment Shuttle Recovery Bilateral Squats Resistance 50 Shuttle Recovery Platform Stable Reps/Time 2x10 Manual Therapy Treatment Soft Tissue Mobilization Lumbar Paraspinals Body Location R side Mobilization Type Myofascial Release,Strumming, Trigger Point Release Intensity/Depth Moderate Body Position Sidelying Glutes Body Location R glute med Mobilization Type Myofascial Release,Sustained Pressure,Trigger Point Release Intensity/Depth Moderate Body Position Sidelying PT-OP-R Modalities Start: 01/11/21 11:10 Freq: Status: Active Protocol: Document 03/16/21 14:30 AMB (Rec: 03/16/21 15:39 AMB [id number]) Electric Stimulation Electric Stimulation Interferential Current (IFC) Body Location R hip Duration (Minutes) 15 Patient Position Sidelying Comments with moist heat, PT-OP-T Assessment and Plan Start: 01/11/21 11:10 Freq: Status: Active Protocol: Document 03/16/21 14:30 AMB (Rec: 03/16/21 15:39 AMB [id number]) Physical Therapy Assessment Assessment Summary Assessment Chayo continues to be weaker since her fall, feels stiffer, especially in the mornings, but is doing her supine HEP. Physical Therapy Plan Frequency and Duration Frequency of Treatment 2x/Week Duration of Treatment 8 weeks Plan of Care Start Date 03/07/21 Plan of Care End Date 05/02/21 Next Visit Focus/Plan Next Note Type Treatment Note Next Visit Plan hip, knee, and core stabilization with gait training
--- NOTE | 2021-03-23 15:35 | PT.OTN ---
Current Diagnoses Other chronic pain (03/23/21) Bunion of right foot (03/23/21) Bunion of left foot (03/23/21) Pain in right hip (03/23/21) Pain in right knee (03/23/21) Pain in left knee (03/23/21) Lumbago with sciatica, right side (03/23/21) Iliotibial band syndrome, right leg (03/23/21) Physical Therapy Treatment Note PT-OP-A Visit Information Start: 01/11/21 11:10 Freq: Status: Active Protocol: Document 03/23/21 14:30 AMB (Rec: 03/23/21 15:35 AMB [email or web address]) Out-Patient Physical Therapy Visit Information Visit Information Visit Type Treatment Note Visit Start Time 14:30 Visit Stop Time 15:15 Total Visit Minutes 45 Visit Number 15 PT-OP-B Current Condition Start: 01/11/21 11:10 Freq: Status: Active Protocol: Document 01/11/21 12:45 AMB (Rec: 01/11/21 12:59 AMB [id number]) Current Condition History of Current Condition Onset Date chronic Current Complaints R sided sciatica History of Current Condition Low back pain that radiates into the right leg. Got worse with not doing much over COVID. Getting massages and water walking. Ever since age 20 was riding in a truck and had increased back pain, then back pain went away for a long time but has come back. Has 5 [address] with one railing and then a 2 level house. Does stairs with step to gait pattern. Difficulty standing for more than 10 min or walking much at all. 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 Personal Factors Other Personal Factors That May Effect Ovarian CA, breast CA, Therapy/Recovery hypertension, TB, neck pain. BMI 39.5 PT-OP-C Subjective Start: 01/11/21 11:10 Freq: Status: Active Protocol: Document 03/23/21 14:30 AMB (Rec: 03/23/21 15:35 AMB [email or web address]) OP-PT Subjective Patient Comments Patient Comments Pt had another fall getting out of the bathtub. She hit her foot on the tub and fell down on her buttocks. She did get a walker PT-OP-G Mobility & Gait Start: 01/11/21 11:10 Freq: Status: Active Protocol: Document 01/11/21 12:45 AMB (Rec: 01/11/21 15:26 AMB [email or web address]) OP Gait Assessment Comments Gait Comments Trendelenburg gait and hip circumduction with walking stick in L UE PT-OP-J Posture/Palpation/Skin Start: 01/11/21 11:10 Freq: Status: Active Protocol: Document 01/11/21 12:45 AMB (Rec: 01/11/21 15:26 AMB [email or web address]) Posture Evaluation Comments Posture Comments Severe lumbar sidebend to L Palpation Assessment Location Back Palpation Details Tenderness at R lumbar parapsinals but worse through gluteal muscles Skin Assessment Edema Assessment Bilateral Ankle Edema Type Pitting Edema Degree 4+ Subjective Edema Description Tightness Comments Pt states she gets summer time swelling in bilateral ankles but they are severely pitting PT-OP-K Range of Motion Start: 01/11/21 11:10 Freq: Status: Active Protocol: Document 01/11/21 12:45 AMB (Rec: 01/11/21 15:26 AMB [email or web address]) Lumbar Spine Range of Motion Lumbar Spine Active Degrees Testing Position Standing Flexion 50 Extension 5 Lateral Flexion Left 20 Lateral Flexion Right 2 Hip Goniometric Range of Motion Hip Right Active Comments R IR limited to neutral, other measurements bilaterally WFL PT-OP-M Strength Start: 01/11/21 11:10 Freq: Status: Active Protocol: Document 01/11/21 12:45 AMB (Rec: 01/11/21 15:34 AMB [email or web address]) Hip Strength Hip Manual Muscle Testing Left Flexion (L2) 4- Good- Extension (S1) 4- Good- Abduction 3- Fair- Right Flexion (L2) 2+ Poor+ Abduction 2- Poor- Knee Strength Knee Manual Muscle Testing Right Extension (L3) 4 Good Left Extension (L3) 3 Fair PT-OP-Q Treatments Start: 01/11/21 11:10 Freq: Status: Active Protocol: Document 03/23/21 14:30 AMB (Rec: 03/23/21 15:35 AMB [email or web address]) Therapeutic Exercises Supine Exercises LAQ Resistance AROM Reps/Minutes 2x10 active hamstring stretch Reps/Minutes 30x2 Manual Therapy Treatment Manual Traction long axis Body Position Hooklying Comments L tolerated well PT-OP-R Modalities Start: 01/11/21 11:10 Freq: Status: Active Protocol: Document 03/16/21 14:30 AMB (Rec: 03/16/21 15:39 AMB [id number]) Electric Stimulation Electric Stimulation Interferential Current (IFC) Body Location R hip Duration (Minutes) 15 Patient Position Sidelying Comments with moist heat, PT-OP-T Assessment and Plan Start: 01/11/21 11:10 Freq: Status: Active Protocol: Document 03/23/21 14:30 AMB (Rec: 03/23/21 15:35 AMB [email or web address]) Physical Therapy Assessment Goals Three Impairment HEP Short Term Goal (STG) Chayo will be independent and consistent with a HEP for LE strengthening. 03/07: PROGRESS MADE STG Duration 4 weeks Two Impairment Gait Short Term Goal (STG) Chayo will ambulate with her walking stick for 2 minutes without an increase in her pain. 03/07: KNEE and HIP pain continue STG Duration 4 weeks [employer] Goal (LTG) Chayo will ascend and descend a flight of stairs with 1 railing wihtout an increase in baseline pain. LTG Duration 8 weeks One Impairment Strength Short Term Goal (STG) Chayo will improve her hip abduction strength bilaterally to at least 3/5. 03/07: Variable based on pain STG Duration 4 weeks [employer] Goal (LTG) Chayo will improve her LE strength so that she can move from sit to stand without heavy use of her upper extremities. PROGRESS MADE LTG Duration 8 weeks Assessment Summary Assessment Chayo attended PT in a w/c today after her fall. She can weightbear through the Left foot with a 4WW, but wasn't sure if she could manage the 4WW in and out of the car, so that's why she had the w/c. Encouraged her to consider a FWW for in and out of the car, as I do not think the walking sticks are providing enough support at this time. Pt does have mobility at the toes and can weightbear, but did have significant swelling and bruising at the foot. Encouraged her to follow up with PCP. Physical Therapy Plan Next Visit Focus/Plan Next Note Type Treatment Note Next Visit Plan hip, knee, and core stabilization with gait training
--- NOTE | 2021-03-28 14:43 | PT.OTN ---
Current Diagnoses Other chronic pain (03/28/21) Bunion of right foot (03/28/21) Bunion of left foot (03/28/21) Pain in right hip (03/28/21) Pain in right knee (03/28/21) Pain in left knee (03/28/21) Lumbago with sciatica, right side (03/28/21) Iliotibial band syndrome, right leg (03/28/21) Physical Therapy Treatment Note PT-OP-A Visit Information Start: 01/11/21 11:10 Freq: Status: Active Protocol: Document 03/28/21 13:44 AMB (Rec: 03/28/21 14:43 AMB [id number]) Out-Patient Physical Therapy Visit Information Visit Information Visit Type Treatment Note Visit Start Time 13:45 Visit Stop Time 14:30 Total Visit Minutes 45 Visit Number 16 PT-OP-B Current Condition Start: 01/11/21 11:10 Freq: Status: Active Protocol: Document 01/11/21 12:45 AMB (Rec: 01/11/21 12:59 AMB [id number]) Current Condition History of Current Condition Onset Date chronic Current Complaints R sided sciatica History of Current Condition Low back pain that radiates into the right leg. Got worse with not doing much over COVID. Getting massages and water walking. Ever since age 20 was riding in a truck and had increased back pain, then back pain went away for a long time but has come back. Has 5 [address] with one railing and then a 2 level house. Does stairs with step to gait pattern. Difficulty standing for more than 10 min or walking much at all. 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 Personal Factors Other Personal Factors That May Effect Ovarian CA, breast CA, Therapy/Recovery hypertension, TB, neck pain. BMI 39.5 PT-OP-C Subjective Start: 01/11/21 11:10 Freq: Status: Active Protocol: Document 03/28/21 13:44 AMB (Rec: 03/28/21 14:43 AMB [id number]) OP-PT Subjective Patient Comments Patient Comments Pt is continuing to use 4WW at home. Hasn't tried to get it in and out of the car yet. PT-OP-G Mobility & Gait Start: 01/11/21 11:10 Freq: Status: Active Protocol: Document 01/11/21 12:45 AMB (Rec: 01/11/21 15:26 AMB [email or web address]) OP Gait Assessment Comments Gait Comments Trendelenburg gait and hip circumduction with walking stick in L UE PT-OP-J Posture/Palpation/Skin Start: 01/11/21 11:10 Freq: Status: Active Protocol: Document 01/11/21 12:45 AMB (Rec: 01/11/21 15:26 AMB [email or web address]) Posture Evaluation Comments Posture Comments Severe lumbar sidebend to L Palpation Assessment Location Back Palpation Details Tenderness at R lumbar parapsinals but worse through gluteal muscles Skin Assessment Edema Assessment Bilateral Ankle Edema Type Pitting Edema Degree 4+ Subjective Edema Description Tightness Comments Pt states she gets summer time swelling in bilateral ankles but they are severely pitting PT-OP-K Range of Motion Start: 01/11/21 11:10 Freq: Status: Active Protocol: Document 01/11/21 12:45 AMB (Rec: 01/11/21 15:26 AMB [email or web address]) Lumbar Spine Range of Motion Lumbar Spine Active Degrees Testing Position Standing Flexion 50 Extension 5 Lateral Flexion Left 20 Lateral Flexion Right 2 Hip Goniometric Range of Motion Hip Right Active Comments R IR limited to neutral, other measurements bilaterally WFL PT-OP-M Strength Start: 01/11/21 11:10 Freq: Status: Active Protocol: Document 01/11/21 12:45 AMB (Rec: 01/11/21 15:34 AMB [email or web address]) Hip Strength Hip Manual Muscle Testing Left Flexion (L2) 4- Good- Extension (S1) 4- Good- Abduction 3- Fair- Right Flexion (L2) 2+ Poor+ Abduction 2- Poor- Knee Strength Knee Manual Muscle Testing Right Extension (L3) 4 Good Left Extension (L3) 3 Fair PT-OP-Q Treatments Start: 01/11/21 11:10 Freq: Status: Active Protocol: Document 03/28/21 13:44 AMB (Rec: 03/28/21 14:43 AMB [id number]) Cardio Equipment Recumbent Stepper (Sci-Fit) Duration (Minutes) 7 Resistance 2 Seat Position 11 Therapeutic Exercises Supine Exercises hip abd/ER Side bilateral Reps/Minutes 2x12 passive hip flexor stretch Comments cannot get to neutral Bridge Reps/Minutes 10 active hamstring stretch Reps/Minutes 30x2 Manual Therapy Treatment Soft Tissue Mobilization 1 Body Location R knee Intensity/Depth Moderate Body Position Hooklying Glutes Body Location R glute med Mobilization Type Myofascial Release,Sustained Pressure,Trigger Point Release Intensity/Depth Moderate Body Position Sidelying Manual Traction long axis Body Position Hooklying Comments L tolerated well PT-OP-R Modalities Start: 01/11/21 11:10 Freq: Status: Active Protocol: Document 03/16/21 14:30 AMB (Rec: 03/16/21 15:39 AMB [id number]) Electric Stimulation Electric Stimulation Interferential Current (IFC) Body Location R hip Duration (Minutes) 15 Patient Position Sidelying Comments with moist heat, PT-OP-T Assessment and Plan Start: 01/11/21 11:10 Freq: Status: Active Protocol: Document 03/28/21 13:44 AMB (Rec: 03/28/21 14:43 AMB [id number]) Physical Therapy Assessment Assessment Summary Assessment Chayo continues to have back/ hip/knee pain that makes gait challenging, was able to ambulate in clinic with 4WW, foot is less swollen and overall doing well. Feels better with 4WW, will consider FWW so that she can put it in her car and take it out independently. Physical Therapy Plan Next Visit Focus/Plan Next Note Type Treatment Note Next Visit Plan hip, knee, and core stabilization with gait training
--- NOTE | 2021-03-30 14:13 | PT-OP ANOTE ---
Pt called to cancel her appt due to GI upset, it was her last scheduled, called and spoke with her on the phone, agreed to put her on hold until first week of April and then decide whether to book more appointments or to d/c.
--- NOTE | 2021-06-20 15:34 | PT.OPDS ---
Current Diagnoses Other chronic pain (03/28/21) Bunion of right foot (03/28/21) Bunion of left foot (03/28/21) Pain in right hip (03/28/21) Pain in right knee (03/28/21) Pain in left knee (03/28/21) Lumbago with sciatica, right side (03/28/21) Iliotibial band syndrome, right leg (03/28/21) Visit Care Team Role Provider Type Subhash Mendoza DO Referring Provider Physician Specialty: [facility] Address: [address] [place] [address], [id number] Email: ENEIDA Bradley Attending Provider Advanced Deputy Manager Primary Care Provider Specialty: [facility] Address: [address] [place] [address], [id number] Email: [email or web address] Visit Number Visit Number [id number] Discharge Summary PT-OP-B Current Condition Start: 01/11/21 11:10 Freq: Status: Active Protocol: Document 01/11/21 12:45 AMB (Rec: 01/11/21 12:59 AMB [id number]) Current Condition History of Current Condition Onset Date chronic Current Complaints R sided sciatica History of Current Condition Low back pain that radiates into the right leg. Got worse with not doing much over COVID. Getting massages and water walking. Ever since age 20 was riding in a truck and had increased back pain, then back pain went away for a long time but has come back. Has 5 [address] with one railing and then a 2 level house. Does stairs with step to gait pattern. Difficulty standing for more than 10 min or walking much at all. 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 Personal Factors Other Personal Factors That May Effect Ovarian CA, breast CA, Therapy/Recovery hypertension, TB, neck pain. BMI 39.5 PT-OP-C Subjective Start: 01/11/21 11:10 Freq: Status: Active Protocol: Document 03/28/21 13:44 AMB (Rec: 03/28/21 14:43 AMB [id number]) OP-PT Subjective Patient Comments Patient Comments Pt is continuing to use 4WW at home. Hasn't tried to get it in and out of the car yet. PT-OP-G Mobility & Gait Start: 01/11/21 11:10 Freq: Status: Active Protocol: Document 01/11/21 12:45 AMB (Rec: 01/11/21 15:26 AMB [email or web address]) OP Gait Assessment Comments Gait Comments Trendelenburg gait and hip circumduction with walking stick in L UE PT-OP-J Posture/Palpation/Skin Start: 01/11/21 11:10 Freq: Status: Active Protocol: Document 01/11/21 12:45 AMB (Rec: 01/11/21 15:26 AMB [email or web address]) Posture Evaluation Comments Posture Comments Severe lumbar sidebend to L Palpation Assessment Location Back Palpation Details Tenderness at R lumbar parapsinals but worse through gluteal muscles Skin Assessment Edema Assessment Bilateral Ankle Edema Type Pitting Edema Degree 4+ Subjective Edema Description Tightness Comments Pt states she gets summer time swelling in bilateral ankles but they are severely pitting PT-OP-K Range of Motion Start: 01/11/21 11:10 Freq: Status: Active Protocol: Document 01/11/21 12:45 AMB (Rec: 01/11/21 15:26 AMB [email or web address]) Lumbar Spine Range of Motion Lumbar Spine Active Degrees Testing Position Standing Flexion 50 Extension 5 Lateral Flexion Left 20 Lateral Flexion Right 2 Hip Goniometric Range of Motion Hip Right Active Comments R IR limited to neutral, other measurements bilaterally WFL PT-OP-M Strength Start: 01/11/21 11:10 Freq: Status: Active Protocol: Document 01/11/21 12:45 AMB (Rec: 01/11/21 15:34 AMB [email or web address]) Hip Strength Hip Manual Muscle Testing Left Flexion (L2) 4- Good- Extension (S1) 4- Good- Abduction 3- Fair- Right Flexion (L2) 2+ Poor+ Abduction 2- Poor- Knee Strength Knee Manual Muscle Testing Right Extension (L3) 4 Good Left Extension (L3) 3 Fair PT-OP-T Assessment and Plan Start: 01/11/21 11:10 Freq: Status: Active Protocol: Document 06/20/21 15:29 [email or web address] (Rec: 06/20/21 15:34 [facility] [id number]) Physical Therapy Assessment Assessment Summary Assessment At her last appointment Chayo continued to have back/hip knee pain so she was encouraged to return to her physician due to her continued gait dysfunction and pain.
== END 2021-07-18 08:40 ==
LOC: PHYS 13:45
PROVIDERS: PCP Nurse Practitioner; Referring Provider Family Medicine; Visit Provider Nurse Practitioner
DX: M25.551 Pain in right hip (principal); M76.31 Iliotibial band syndrome, right leg; M54.41 Lumbago with sciatica, right side; G89.29 Other chronic pain; M25.561 Pain in right knee; M25.562 Pain in left knee; M21.611 Bunion of right foot; M21.612 Bunion of left foot
CPT/HCPCS: 97014; 97110; 97140; 97162; G0283

== ENCOUNTER → 2021-04-21 16:21 | Outpatient (CLI) | payer MEDICARE, OTHER, SELFPAY ==
--- NOTE | 2021-04-21 16:24 | DI.RAD.S_ITS ---
PROCEDURE: XR KNEE RT 3V INDICATIONS: pain TECHNIQUE: 3 views of the knee were acquired. COMPARISON: None. FINDINGS: Bones: No fractures or dislocations. No suspicious bony lesions. Mild narrowing of the lateral compartment. There is also mild narrowing in the patellofemoral compartment. Soft tissues: No joint effusion. No suspicious soft tissue calcifications. IMPRESSION: 1. Mild narrowing in the lateral and patellofemoral compartments. Dictated by: Adrian Mei RR Interpreted: Jarad Gonzalez MD on 04/21/2021 at 17:09 Transcribed by: DUANE on 04/21/2021 at 17:10 Approved by: Jarad Gonzalez M.D. on 04/22/2021 at 1:12
== END ==
PROVIDERS: PCP Nurse Practitioner; Referring Provider Family Medicine; Visit Provider Family Medicine
DX: M25.561 Pain in right knee (principal); M25.562 Pain in left knee; G89.29 Other chronic pain
CPT/HCPCS: 73562

== ENCOUNTER → 2021-05-05 11:30 | Outpatient (CLI) | payer MEDICARE, OTHER, SELFPAY ==
--- NOTE | 2021-05-05 11:32 | DI.MRI.S_ITS ---
PROCEDURE: MR KNEE RT WO CON INDICATIONS: Chronic pain TECHNIQUE: Noncontrast sagittal PD fast spin echo and T2 fast spin echo with fat saturation, sagittal 3-D FLASH with fat saturation; coronal T1 spin echo and PD fast spin echo with fat saturation, and axial PD fast spin echo with fat saturation through the knee. COMPARISON: None. FINDINGS: Menisci: Medial meniscus: Intact. Lateral meniscus: Ill-defined tear of the lateral meniscal body which is not well seen due to motion artifact. There is partial extrusion and marked truncation of the free margin. Cruciate ligaments: Anterior cruciate ligament: Intact. Posterior cruciate ligament: Intact. Medial structures: The medial collateral ligament: Intact. Semimembranosus tendon: Intact. Visualized pes anserinus tendons: Intact. Bursal fluid: none. Lateral structures: The lateral collateral ligament intact. Biceps femoris tendon appears intact. Popliteus tendon grossly unremarkable. Iliotibial band appears intact. Anterior structures: Quadriceps tendon mildly thickened at the insertion with T2 hyperintensity suggestive of low-grade strain. Mild thickening and intrasubstance signal changes involving the lateral patellofemoral ligament at the patellar attachment. The medial patellofemoral ligament appears grossly intact. Minimal patellar tendinopathy Hoffa's fat pad unremarkable. Bones and cartilage: Marrow: No focal marrow contusion or discrete low signal fracture line. Medial compartment: No focal chondral defect. Lateral compartment: Diffuse partial-thickness femoral and tibial chondral loss. Patellofemoral compartment: Diffuse partial-thickness femoral trochlear and patellar chondral loss Joint space: Effusion: No pathologic knee joint effusion. Popliteal fossa: 4-5 cm cephalocaudal dimension Reynaga's cyst Loose bodies: None. IMPRESSION: Ill-defined lateral meniscal tear involving the body with partial extrusion. Low-grade strain of the distal quadriceps tendon. Mild patellar tendinopathy. Reynaga's cyst. Mild degenerative joint disease, most pronounced involving the patellofemoral and lateral compartments. Dictated by: Willie Webster M.D. on 05/05/2021 at 12:57 Approved by: Willie Webster M.D. on 05/05/2021 at 13:16
== END ==
PROVIDERS: PCP Nurse Practitioner; Referring Provider Family Medicine; Visit Provider Family Medicine
DX: S83.281A Other tear of lateral meniscus, current injury, right knee, initial encounter (principal); S76.111A Strain of right quadriceps muscle, fascia and tendon, initial encounter; M71.21 Synovial cyst of popliteal space [Baker], right knee; M17.11 Unilateral primary osteoarthritis, right knee; M25.561 Pain in right knee; G89.29 Other chronic pain
CPT/HCPCS: 73721

== ENCOUNTER → 2021-06-20 11:10 | Outpatient (CLI) | payer MEDICARE, OTHER, SELFPAY ==
--- NOTE | 2021-06-20 11:13 | DI.RAD.S_ITS ---
PROCEDURE: XR HIP W PEL IF DONE RT 2V INDICATIONS: hip pain TECHNIQUE: 2 views of the hip were acquired. COMPARISON: None. FINDINGS: Bones: Severe right hip osteoarthritis noted. There is flattening of the right femoral head compatible with chronic sequela of a vascular necrosis. No fractures or dislocations. No suspicious bony lesions. The visualized pelvic ring appears intact. Soft tissues: 3.5 x 2.0 centimeter density projects over the lower pelvis which cannot be definitively localized without additional views. Multiple surgical clips project over the pelvis. IMPRESSION: 1. 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 2. 3.5 x 2.1 ovoid calcific density projecting of the midline of the lower pelvis. Lesion cannot be definitively localized or characterized without additional views but may represent stone within urinary bladder. Dictated by: Savana Waite MD, PhD on 06/20/2021 at 16:10 Approved by: Savana Waite MD, PhD on 06/20/2021 at 16:12
== END ==
PROVIDERS: PCP Nurse Practitioner; Referring Provider Family Medicine; Visit Provider Family Medicine
DX: M16.11 Unilateral primary osteoarthritis, right hip (principal); M87.851 Other osteonecrosis, right femur; M89.9 Disorder of bone, unspecified; M25.551 Pain in right hip
CPT/HCPCS: 73502

== ENCOUNTER → 2021-07-20 13:52 | Outpatient (CLI) | payer MEDICARE, OTHER, SELFPAY ==
[2021-07-20 14:14] LABS: Add Manual Diff / Slide Review NO; Basophils Absolute Auto 100 /uL (0-100); Basophils Percent Auto 0.6 % (0-2); Eosinophils Absolute Auto 300 /uL (0-450); Eosinophils Percent Auto 2.8 % (2-4); Hematocrit 34.1 % (36-46); Hemoglobin 11.7 g/dL (12.0-16.0); Lymphocytes Absolute Auto 1100 /uL (1100-4500); Mean Corpuscular HGB Conc 34.2 % (30-36); Mean Corpuscular Hemoglobin 32.3 PG (26-34); Mean Corpuscular Volume 94.5 fL (80-100); Monocytes Absolute Auto 600 /uL (0-900); Monocytes Percent Auto 6.7 % (3-14); Neutrophils Absolute Auto 7200 /uL (1500-7000); Neutrophils Percent Auto 77.9 % (50-75); Platelet Count 201 X10^3/uL (150-400); Red Blood Cell Count 3.61 X10^6/uL (4.0-5.2); Red Cell Distribution Width 13.3 % (11.6-14.8); White Blood Cell Count 9.2 X10^3/uL (4.5-11.0)
[2021-07-20 14:29] LABS: Alanine Aminotransferase 20 IU/L (<35); Albumin 4.2 g/dL (3.5-5.0); Albumin Globulin Ratio 1.4 (1.0-2.8); Alkaline Phosphatase 64 U/L (38-126); Aspartate Aminotransferase 25 IU/L (14-36); BUN Creatinine Ratio 34.4 (6-22); Bilirubin Total 0.8 mg/dL (0.2-1.3); Blood Urea Nitrogen 52 mg/dL (7-17); Calcium 9.7 mg/dL (8.4-10.2); Carbon Dioxide 22 mmol/L (22-32); Chloride 106 mmol/L (98-107); Globulin 2.9 g/dL (1.7-4.1); Glucose 132 mg/dL (80-110); HEMOLYSIS < 15 (0-50); Potassium 4.7 mmol/L (3.4-5.1); Sodium 137 mmol/L (137-145); Total Protein 7.1 g/dL (6.3-8.2)
[2021-07-20 16:43] LABS: Hemoglobin A1C% w Est Avg Glu 5.4 % (4.0-6.0)
[2021-07-20 17:54] LABS: Appearance Urine UA CLEAR; Bilirubin Urine UA NEGATIVE (NEGATIVE); Color Urine UA YELLOW; Glucose Urine UA NEGATIVE (Negative); Ketones Urine UA NEGATIVE (NEGATIVE); Leukocyte Esterase Urine UA TRACE (NEGATIVE); Nitrite Urine UA NEGATIVE (Negative); Occult Blood Urine UA NEGATIVE (Negative); Protein Urine UA NEGATIVE (Negative); Urobilinogen Urine UA 0.2 E.U./dL (0.2)
[2021-07-20 18:34] LABS: Bacteria Urine Occasional (0-1); Culture Indicated Urine Specimen Cultured; RBC Urine 0-1/HPF (0-5/HPF); Squamous Epithelial Cell Urine 0-1 /HPF (0-5/HPF); WBC Urine 5-10/HPF (0-5/HPF)
== END ==
PROVIDERS: Internal Medicine Hematology & Oncology; PCP Nurse Practitioner; Referring Provider Orthopaedic Surgery; Visit Provider Orthopaedic Surgery
DX: Z01.818 Encounter for other preprocedural examination (principal); R73.9 Hyperglycemia, unspecified; Z01.812 Encounter for preprocedural laboratory examination; N39.0 Urinary tract infection, site not specified; C50.911 Malignant neoplasm of unspecified site of right female breast
CPT/HCPCS: 36415; 80053; 81001; 83036; 85025; 87086; 93005

== ENCOUNTER → 2021-07-26 14:55 | Outpatient (CLI) | payer MEDICARE, OTHER, SELFPAY ==
[2021-07-26 15:35] LABS: COVID19 -Nasal RAPID Negative (Negative)
== END ==
PROVIDERS: PCP Nurse Practitioner; Visit Provider Family Medicine Sleep Medicine
DX: Z20.822 Contact with and (suspected) exposure to COVID-19 (principal)
CPT/HCPCS: 87635; C9803

== ENCOUNTER 2021-07-29 10:50 | Observation (INO) | payer MEDICARE, OTHER, SELFPAY ==
[2021-07-28] VITALS (13 sets, daily range): BP systolic 93–132; BP diastolic 50–68; PULSE 49–70; RESP 12–24; TEMP 35.6–36.7; O2SAT 89–100; BMI 40.7
[2021-07-28] MEDS: LACTATED RINGERS 1,000 ML 42 ML IV (11:28)
[2021-07-28] MEDS: GABAPENTIN 300 MG CAPSULE PO (11:30)
[2021-07-28] MEDS: CELECOXIB 200 MG CAPSULE PO (11:30)
[2021-07-28] MEDS: ACETAMINOPHEN 325 MG TABLET 975 MG PO (11:30)
--- NOTE | 2021-07-28 13:19 | DI.RAD.S_ITS ---
PROCEDURE: XR HIP W PEL IF DONE RT 2V INDICATIONS: total hip TECHNIQUE: AP pelvis and lateral view of the right hip acquired. COMPARISON: [facility], CR, XR HIP W PEL IF DONE RT 2V, 06/20/2021, 11:11. FINDINGS: Bones: Patient is status post right hip arthroplasty, with hardware components in expected positions. The hip joint appears congruent. The visualized bony structures appear intact. Soft tissues: Overlying postoperative changes are noted. No suspicious soft tissue densities. IMPRESSION: Expected immediate postoperative appearance of right hip arthroplasty. Dictated by: Adrian Mei [facility] Interpreted: Basim Mccollum MD on 07/28/2021 at 16:58 Transcribed by: DARLINE on 07/28/2021 at 16:59 Approved by: Basim Mccollum M.D. on 07/28/2021 at 16:59
--- NOTE | 2021-07-28 13:21 | PM.PREOP ---
Pre-operative Note COVID-19 COVID-19 status: Negative Criteria for continued procedure: Expected advancement of disease process, Possibility delay results in more complex future surgery or treatment, Increased loss of function, Continuing or worsening of significant or severe pain and Deterioration of the patient's condition or overall health Interval Note History & Physical reviewed/Exam performed by Physician: Yes Changes to H&P: No
--- NOTE | 2021-07-28 13:45 | P.OP_ITS ---
Operative Date/Time/Diagnoses Date of procedure: 07/28/21 Time of procedure: 13:46 Pre-op diagnosis: right hip AVN, right hip OA Post-op diagnosis: same Procedure & Clinicians Procedure: Right total hip arthroplasty posterior approach Same procedure as scheduled: Yes Indications: The patient has had progressively worsening right hip pain with radiographic changes consistent with arthritis. Non-operative management has failed and the patient has requested total hip replacement. The risks, benefits and alternatives to surgery were discussed with the patient prior to proceeding. Risks discussed included, but were not limited to, failure to relieve pain, leg length discrepancy, dislocation, stiffness, infection, nerve damage, deep venous thrombosis, pulmonary embolism, stroke, coma, heart attack, permanent paralysis and , as well as the potential need for eventual revision of the prosthetic. Surgeon: Selma Etienne Inspector Final Assembly Mechanical: Sue Benitez Anesthesia Type: General Operative Notes Findings: Severe right hip osteoarthritis, severe destruction of the acetabulum was some proximal subluxation Closure Type: primary Specimen(s): none sent Prosthetic devices, grafts, tissues, transplants, or devices: Etienne [employer] Nephew 52 mm read out cup 3 screws 2 locking, size 14 synergy, 40 mm dual mobility liner with the +0 22 mm head Applied: drain(s) Estimated Blood Loss (mL): 250 Blood products transfused: none Procedure in detail: The patient was seen in the pre-operative area, where the patient identified the right hip as the operative site and this was marked with my initials. The patient received pre-operative antibiotics and was taken to the operating room and placed on the operative table in the left lateral decubitus position after satisfactory anesthesia. A multimedia teacher out was performed. The right leg was prepared from the ankle to the iliac crest with ChloroPrep in the usual fashion and draped through sterile drapes. The hip was approached through an approximately 20 cm incision centered over the greater trochanter and curving gently posteriorly as it went proximally. This was carried sharply to the fascia jocelyne, which was divided and retracted with a self retaining retractor. The trochanteric bursa was excised with care being taken to avoid the sciatic nerve, which was identified and protected throughout the case. The short external rotators were incised and the capsulomuscular flap was raised and tagged for later repair. The hip was dislocated, and a femoral neck osteotomy performed approximately 15 mm above the lesser trochanter. Retractors were placed around the femur. The canal was opened with a box cutting osteotome, followed by a T handled reamer and a lateralizing reamer. The chili pepper broach was then used, followed by sequential broaching until there was good stability of the broach in the femur. It was templated initially for an anthology but she had very soft bone and I switched to Synergy technology. Adequate stability of broach was achieved in the femur. Retractors were placed to expose the acetabulum. The labrum and central soft tissues were removed. There was severe destruction of the acetabulum. Meti culous attention was directed at finding the acetabular acetabular anatomy. There was some lateral bone loss. There was moderate softening of the superior aspect of the acetabulum and laterally some of the soft bone was carefully removed. A defined the posterior and inferior rim. I meticulously reamed to centralize the cup and reamed it up to a 52 mm cup. Look like I would have excessive thinning of the anterior posterior wall of a tried to go up to a 54. There was slight obliquity of the cup because of the superior bone loss. There was also a cyst in the acetabulum. This was meticulously bone grafted. Trial cup was noted to be stable but read apt cup was selected due to increased friction and better fit. It was then fixed with a single screw to adequately seat the cup and 2 locking screws. Good quality fixation was achieved and the cuff was tested and noted to be stable. Some additional bone graft was also placed. Reaming was performed initially going up in 2 mm increments, then 1 mm increments until good bite was obtained with an odd sized reamer. The cup 1 mm larger than the last reamer was then inserted using the appropriate anteversion guides. A trial neutral liner was placed. The broach was placed in the canal. A trial head and neck were then placed and the hip relocated and checked for leg length and stability. An intraoperative film confirmed the component position and no evidence of fracture. The patient was stable in the position of sleep, of squatting, and could be put through a range of motion with 45 degrees internal rotation without dislocation. At 90 degrees flexion, internal rotation to 80 ? was possible before dislocation. This was felt to be satisfactory and the appropriate components were opened, and the trials were removed. The acetabular liner was impacted into position. It was opted to go with dual mobility technology because of the patient's shortening preoperatively as well as some lateral subluxation preoperatively. There was improved stability with dual mobility. The final stem was then impacted into the prepared femoral canal. A brief Betadine soak was performed while trialing with head options. The hip was meticulously irrigated with normal saline. Finally the femoral head was impacted onto the stem. The acetabulum was cleared of all material and the hip relocated one final time. The capsulomuscular flap was then repaired to the greater trochanter though an awl hole using the tag sutures. The short external rotators were repaired with a nonabsorbable suture. A deep drain was placed and brought out anteriorly. The fascia jocelyne was closed with Vicryl. The subcutaneous layer was closed with barbed sutures and skin chel. An Aquacel Ag dressing was applied and the patient was taken to recovery having tolerated the procedure well. Complications: none Post-operative Condition: stable Disposition: Acute Care Plan for aftercare: The patient will be maintained on a standard total hip replacement protocol with weight bearing as tolerated and posterior hip precautions. The patient will receive Aspirin and sequential compression devices for DVT prophylaxis. The patient will be discharged home when safe for the home environment.
[2021-07-28] MEDS: TRANEXAMIC ACID 1,000 MG VIAL 2000 MG INJ (14:05)
[2021-07-28] MEDS: CEFAZOLIN 2 GM/20 ML SYRINGE IV ×2 (14:10→20:55)
--- NOTE | 2021-07-28 14:25 | SUR.OPER ---
Lateral on padded OR bed. Gel axillary roll. Arms secured on padded armboard with pillow supporting top arm and gel pad under left arm. Padded hip positioner braces x4 - anterior and posterior chest and pelvis. Additional gel pad used anterior pelvis. Gel pad under bottom leg from knee to foot and secured with tape over sheet.
[2021-07-28] MEDS: BUPIVACAINE 0.25% (PF) 60 ML, EPINEPHrine 0.3 MG INJ (14:39)
[2021-07-28] MEDS: BUPIVACAINE LIPOSOME 266 MG/20 ML VIAL INJ (14:40)
--- NOTE | 2021-07-28 15:00 | DI.RAD.S_ITS ---
PROCEDURE: XR PELVIS 1-2V INDICATIONS: INNER OP HIP TECHNIQUE: Intra-operative view of the pelvis and hip acquired. COMPARISON: None. FINDINGS: Bones: Intraoperative devices prior to placement of arthroplasty prostheses are in expected positions. No fractures or suspicious bony lesions. Soft tissues: Overlying surgical retractors are present, along with other intraoperative changes. IMPRESSION: Intraoperative C-arm images demonstrate expected positioning of intraoperative devices during placement of right hip arthroplasty. Dictated by: Adrian Mei [facility] Interpreted: Basim Mccollum MD on 07/28/2021 at 15:51 Transcribed by: DARLINE on 07/28/2021 at 15:51 Approved by: Basim Mccollum M.D. on 07/28/2021 at 16:49
[2021-07-28] MEDS: VANCOMYCIN 1,000 MG/200 ML PIGGYBACK 200 MG IV (15:30)
--- NOTE | 2021-07-28 17:33 | SUR.PHASEI ---
07/28/21-1714 vss. more awake and alert. hob elevated 30 degrees. denies pain or nausea. tolerated ice chips po. iv patent. Report to Floor RN, Christy. Experell band on left wrist. preparing to transfer to room. Oxygen at 2l nc precautions with duramorph after sleeping and desats down to 90%-no apnea. dressing rt hip cdi. noah drain/hemovac rt hip intact. csm rle: minimal motion to toes,weak knee bend. 2+ Dp pulse,pink,warm and able to wiggle-distinguish toes touched. Still with numb/tingling.xrays done. 1723-To room on bed with 2 bags of belongings by Amara Bliss RN.
--- NOTE | 2021-07-28 19:36 | PC.NURSE ---
Pt arrived from PACU at 1725, A&Ox3. Lethargic but easily awakened. Pt denies pain or numbness down legs. Denies n/v. Hemovac without drainage. RYAN dressing C/D/I her HR in mid 40's at rest, and up to 50's when awake. Soft BP's SBP 100's. LR at 125ml/hr. Continuous monitoring.
[2021-07-28] MEDS: IBUPROFEN 400 MG TABLET PO (20:49)
[2021-07-28] MEDS: DOCUSATE 100 MG CAPSULE PO (20:49)
[2021-07-28] MEDS: ACETAMINOPHEN 325 MG TABLET 650 MG PO (20:49)
[2021-07-28] MEDS: ASPIRIN EC 81 MG TABLET PO (20:49)
[2021-07-28] MEDS: LACTATED RINGERS 1,000 ML 125 ML IV (20:50)
[2021-07-29] MEDS: LACTATED RINGERS 1,000 ML 125 ML IV ×2 (03:00→11:12)
[2021-07-29 03:03] VITALS: BP 105/52; PULSE 52; RESP 18; TEMP 35.9; O2SAT 99
[2021-07-29] MEDS: IBUPROFEN 400 MG TABLET PO ×5 (06:09→20:18)
[2021-07-29] MEDS: CEFAZOLIN 2 GM/20 ML SYRINGE IV (06:10)
[2021-07-29 07:15] VITALS: BP 126/63; PULSE 60; RESP 18; TEMP 36.2; O2SAT 100
--- NOTE | 2021-07-29 09:10 | PT.IIE ---
Current Diagnoses Unilateral primary osteoarthritis, right hip (07/28/21) Surgery Performed Operation Date: 07/28/21 12:45 Actual Procedures p Total Hip Arthroplasty(Right) - Selma Etienne MD Medical History (Last Reviewed 07/29/21 @ 10:27 by Bakari Buchanan PA-C) Acute right hip pain Bilateral bunions Breast cancer Breast cancer of lower-inner quadrant of right female breast Breast cancer, right breast Cervical somatic dysfunction Chronic low back pain Chronic pain of both knees Chronic pain of right knee Family history of breast cancer in mother Flat feet, bilateral History of antineoplastic chemotherapy History of malignant neoplasm of ovary in adulthood HTN (hypertension) Hyperglycemia Hyperlipidemia Iliotibial band syndrome, right leg Lumbar region somatic dysfunction Neck stiffness Numbness and tingling in both hands Obesity 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 Ovarian carcinoma (~2005) Pain in lateral portion of right knee Pelvic somatic dysfunction Port-A-Cath in place Right knee pain Sacral region somatic dysfunction Segmental and somatic dysfunction of abdomen and other regions Somatic dysfunction of lower extremity Thoracic region somatic dysfunction Transaminitis Physical Therapy Inpatient Evaluation/Re-Eval M1 PT/OT-IP Prior Functional Status Start: 07/29/21 12:45 Freq: NEEDED Status: Active Protocol: Document 07/29/21 09:10 AB (Rec: 07/29/21 13:03 AB [id number]) Medical Review Prior Functional Status Medical History Reviewed Yes Communication able to make needs known Mobility and Gait pt stated that she is modified idnependent with all mobilities and ambulation using a 4WW Social History Household Members spouse Living Arrangements House Number of Floors (Floors) Two Floors Number of Stairs To Enter/Railing? pt stays on main level of the house 7 steps L rail to enter Home Environment Standard Height Toilet,Tub/ Shower Home Equipment Raised Toilet Seat w/Armrests, Tub Transfer Bench,Hand Held Shower,Grab Bars Near Toilet, Grab Bars In Shower M2 PT-IP Current Condition Start: 07/29/21 12:45 Freq: NEEDED Status: Active Protocol: Document 07/29/21 09:10 AB (Rec: 07/29/21 13:03 AB [email or web address]) Physical Therapy Current Condition Current Condition Evaluation Date 07/29/21 Treatment Diagnosis s/p R JOHN posterior approach; difficulty in walking Onset Date 07/28/21 M3 PT-IP Subjective Start: 07/29/21 12:45 Freq: NEEDED Status: Active Protocol: Document 07/29/21 09:10 AB (Rec: 07/29/21 13:03 AB [email or web address]) Subjective Physical Therapy Visit Type Type Initial Evaluation Visit Start Time 09:10 Visit Stop Time 10:06 Total Visit Minutes 56 Number of REHAB THERAPY MANAGER Visits 0 Physical Therapy Visit Comments Patient Comments pt is agreeable to do PT Therapy Pain Assessment Pain When Pain Assessed At Rest Pain Present Pain Present Pain Reported Location Right Hip Intensity 5 Scale Used Numeric (0 - 10) Pain Management Techniques Modification of Treatment,Re- positioning,Timing of Activity with Medications M4 PT-IP Mobility and Gait Start: 07/29/21 12:45 Freq: NEEDED Status: Active Protocol: Document 07/29/21 09:10 AB (Rec: 07/29/21 13:03 [email or web address]) PT-Bed Mobility Assessment Supine to Sit Supine to Sit Maximum Assistance,1 Person Assistance,Bedrails PT-Transfer Assessment Sit to and From Stand Sit to and from Stand Minimal Assistance,1 Person Assistance Equipment Transfer Assistive Device Gait Belt,Front Wheeled Walker Orthotic/Prosthetic Devices or Brace: No Transfers Transfer Destination Chair Transfer Technique Stand Step Pivot Transfer Ability Level of Assist Minimal Assistance,1 Person Assistance,Use of Upper Extremities Comments Mobility Comments educated pt on posterior hip precautions. BP in supine: 109/57. pt completed supine to sit max A and max cues. able to sit on EOB SBA. BP in sittin/38. pt seated fro a few mintues and BP checked again: 124/63. completed sit to stand min A and cues to maintain hip precautions, transferred step pivot using FWW min A to chair . BP after transfers sitting on chair: 114/53. completed sit to stand again from chair min A and cues and ambulated in room using FWW ~ 25 ft min A and cues. pt with increase L knee valgus and ankle inversion making LLE seems longer than RLE and affecting pt's heel strike on RLE. pt not able to heel strike on RLE and tip toes on RLE during intial and mid stance with increase lateral trunk lean to the R with LLE swing. pt c/o dizziness and unable to ambulate more. BP checked: 101/50. informed nurse regarding pt's mobility and BP . caregiver training set up for 130pm today. pt called her spouse to come in for training . Gait Assessment Gait Gait Assistance Required: Minimum Assistance Distance (Feet) 25 Able to Maintain Weight Bearing Status Yes During Gait Assistive Devices Assistive Device Gait Belt,Front Wheeled Walker Orthotic/Prosthetic Devices or Brace: No Gait Deviations General Gait Pattern Antalgic,Decreased Stride Length,Decreased Feet Clearance,Step-to Gait,Wide Based Gait Factors Limiting Gait Function Factors Limiting Gait Function Decreased Activity Tolerance, Decreased Strength,Limited Range of Motion,Pain,Poor Balance,Poor Safety Awareness PT-Balance Assessment Sitting Balance and Reactions Static Sitting Balance Ability Good Dynamic Sitting Balance Ability Good Standing Balance and Reactions Static Standing Balance Ability Fair Dynamic Standing Balance Ability Fair Device Used FWW M5 PT-IP Objective Assessments Start: 07/29/21 12:45 Freq: NEEDED Status: Active Protocol: Document 07/29/21 09:10 AB (Rec: 07/29/21 13:03 AB [email or web address]) Orientation Orientation/Cognition Level of Alertness Alert Orientation Name,Place,Situation Language Function Ability No Deficits Noted Safety Awareness Understands Safety Issues Memory Description Short Term Impaired Gross Range of Motion Lower Extremity ROM Assessment Within Functional Limits Strength Lower Extremity Strength Assessment Right Impaired Hip 3-/5 Knee 4-/5 Coordination Assessment Gross Coordination Gross Coordination WNL Sensation Assessment Sensation Gross Sensation WNL Muscle Tone Muscle Tone WNL Yes M6 PT-IP Treatment Start: 07/29/21 12:45 Freq: NEEDED Status: Active Protocol: Document 07/29/21 09:10 AB (Rec: 07/29/21 13:03 AB [email or web address]) Physical Therapy Treatment Education Education Provided Precautions,Weight Bearing Status,Post-Op Packet,Safety M7 PT-IP Assessment and Plan Start: 07/29/21 12:45 Freq: NEEDED Status: Active Protocol: Document 07/29/21 09:10 AB (Rec: 07/29/21 13:03 AB [email or web address]) PT Summary Assessment and Plan Potential Rehabilitation Potential Fair Status of Condition at Evaluation Evolving Summary Impairments Pain,ROM,Strength,Balance, Coordination,Sensation,Tone, Cognition,Bed Mobility, Transfers,Gait,Activity Tolerance Assessment Summary pt requiring min A with mobility but unable to tolerate much activity with c/ o dizziness after ambulation. BP decreased to 101/50 from 124/63 in sitting. Caregiver training set up for today at 130 pm. will continue to assess progress for safet d/c plan. Goals Bed Mobility Goal Independent Transfer Goal Independent,Front Wheeled Walker Gait Goal Independent,Four Wheel Walker Gait Distance 150 Other Goals ambulation using 4WW SBA 200 ft up/hilary 7 steps L rail ascending SBA Days to Meet Goals 10 Frequency of Treatment Frequency Of Treatment Twice a Day Treatment Plan Physical Therapy Treatment Plan Bed Mobility Training,Transfer Training,Gait Training, Therapeutic Exercise,Balance Retraining,Post Op Education, Discharge Planning,Hot or Cold Pack,Neuromuscular Re-ed, Coordination Retraining,Manual Therapy Precautions Posterior Hip Precautions No Hip Flexion > 90 degrees,No Hip Internal Rotation,No Hip Adduction Weight Bearing Status Weight Bearing Status Weight Bear as Tolerated Allowed Weight Bearing Amount (enter % RLE WBAT or #) (%) Recommendations To Nursing Amount of Assist Needed 1 Person Assist Discharge Recommendations PT Discharge Recommendations Home with Assistance, Outpatient PT Transportation Needs at Discharge Private Vehicle,Wheelchair/ Cabulance
[2021-07-29] MEDS: DOCUSATE 100 MG CAPSULE PO ×2 (10:22→20:18)
[2021-07-29] MEDS: MULTIVITAMIN 1 TABLET 1 TAB PO (10:22)
[2021-07-29] MEDS: ACETAMINOPHEN 325 MG TABLET 650 MG PO ×3 (10:23→20:18)
[2021-07-29] MEDS: ASPIRIN EC 81 MG TABLET PO ×2 (10:23→20:18)
[2021-07-29] MEDS: CHOLECALCIFEROL (VITAMIN D3) 1,000 UNIT TABLET 1000 UNIT PO (10:23)
--- NOTE | 2021-07-29 10:24 | P.DS_ITS ---
History of Present Illness History of Present Illness Date Patient Seen: 07/29/21 Time Patient Seen: 10:24 Chief complaint: Hip pain Narrative: Pain is mild. Denies fever or chills. No nausea or vomiting. Patient does have assistance at home. Discharge Providers Provider Discharge Date: 07/29/21 Primary care physician: ENEIDA Bradley Consults: 07/28/21 13:18 Consult to Anesthesiology Routine Comment: Consulting Provider: Anesthesiologist Reason for consultation: Regional block for post operative pain control 07/28/21 17:31 Consult to Discharge Planning Routine Comment: Consult to Physical Therapy Evaluate & Treat Comment: Physician Instructions: post op JOHN protocol Consult to Respiratory Therapy Evaluate & Treat Comment: Physician Instructions: Evaluate and treat Discharge provider: Bakari Buchanan PA-C Summary Hospital Course Discharge Diagnosis: Right hip AVN, osteoarthritis Hospital Course: Right total hip arthroplasty posterior approach Same procedure as scheduled: Yes Indications: The patient has had progressively worsening right hip pain with radiographic changes consistent with arthritis. Non-operative management has failed and the patient has requested total hip replacement. The risks, benefits and alternatives to surgery were discussed with the patient prior to proceeding. Risks discussed included, but were not limited to, failure to relieve pain, leg length discrepancy, dislocation, stiffness, infection, nerve damage, deep venous thrombosis, pulmonary embolism, stroke, coma, heart attack, permanent paralysis and , as well as the potential need for eventual revision of the prosthetic. Surgeon: Selma Etienne Plasma Processing Centrifuge Operator: Sue Benitez Anesthesia Type: General Operative Notes Findings: Severe right hip osteoarthritis, severe destruction of the acetabulum was some proximal subluxation Closure Type: primary Specimen(s): none sent Prosthetic devices, grafts, tissues, transplants, or devices: Etienne [employer] Nephew 52 mm read out cup 3 screws 2 locking, size 14 synergy, 40 mm dual mobility liner with the +0 22 mm head Applied: drain(s) Estimated Blood Loss (mL): 250 Blood products transfused: none Patient admitted to the hospital for right total hip arthroplasty, posterior approach. Patient consented to the same. Patient taken to the operating room on July 28, 2021. Patient underwent right total hip arthroplasty, posterior approach. Patient back in her room recovering well as in stable condition. Patient will work with physical therapy and be discharged home in stable condition. Exam Vital Signs (past 8 hours): - 07/29/21 03:03 07/29/21 07:15 Temperature 96.7 F L 97.2 F L Pulse Rate 52 L 60 Respiratory Rate 18 18 Blood Pressure 105/52 L 126/63 Pulse Oximetry 99 100 Oxygen Delivery Method Room Air Oxygen Flow Rate 0 Narrative Exam Narrative: 71-year-old female sitting in bedside chair having breakfast. Patient no appa rent distress. Preeti dressing is on and functioning. Motor functions intact bilateral lower extremities. Sensation grossly intact to light touch bilateral lower extremities. Const General: cooperative Nutritional Appearance: obese (BMI 40.7) Orientation: alert Objective Labs Result Diagrams: 07/29/21 04:43 Labs: Laboratory Results - last 24 hr 07/29/21 04:43 Hgb 9.0 L Hct 27.0 L PFSH Medical History Acute right hip pain Bilateral bunions Breast cancer Breast cancer of lower-inner quadrant of right female breast Breast cancer, right breast Cervical somatic dysfunction Chronic low back pain Chronic pain of both knees Chronic pain of right knee Family history of breast cancer in mother Flat feet, bilateral History of antineoplastic chemotherapy History of malignant neoplasm of ovary in adulthood HTN (hypertension) Hyperglycemia Hyperlipidemia Iliotibial band syndrome, right leg Lumbar region somatic dysfunction Neck stiffness Numbness and tingling in both hands Obesity 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 Ovarian carcinoma (~2005) Pain in lateral portion of right knee Pelvic somatic dysfunction Port-A-Cath in place Right knee pain Sacral region somatic dysfunction Segmental and somatic dysfunction of abdomen and other regions Somatic dysfunction of lower extremity Thoracic region somatic dysfunction Transaminitis Surgical History History of colonoscopy History of incisional hernia repair History of lumpectomy of right breast (05/27/18) History of total abdominal hysterectomy and bilateral salpingo-oophorectomy Family History Father Hypertension Mother Breast cancer Social History marital status: household members: spouse Smoking Status: Never smoker alcohol intake: current substance use type: does not use Discharge Assessment & Plan Assessment and Plan Assessment: Patient progressing as expected status post right total hip arthroplasty, posterior approach Plan of Treatment: Mobilize with physical therapy Weight-bearing as tolerated with posterior hip precautions Multimodal pain management Discharge home today in stable condition Discharge Plan Discharge Plan Patient Disposition: Home Discharge orders & Medications Discharge Orders: Discharge (Order); Ordered 07/29/21 Ordered By: Bakari Buchanan Prescriptions: New polyethylene glycol 3350 17 gram Powder In Packet 17 gm PO DAILY PRN (Reason: Constipation) Qty: 30 0RF aspirin 81 mg Tablet,Delayed Release (Dr/Ec) 81 mg PO BID Qty: 60 0RF oxycodone 10 mg Tablet 10 mg PO Q3HR PRN (Reason: Pain, Severe (7-10)) Qty: 60 0RF Continued cholecalciferol (vitamin D3) [Vitamin D3] 25 mcg (1,000 unit) Tablet 1,000 unit PO DAILY Qty: 0 0RF amlodipine 10 mg tablet 10 mg PO DAILY Qty: 90 3RF valsartan 320 mg tablet 320 mg PO DAILY Qty: 90 3RF hydrochlorothiazide 25 mg tablet 25 mg PO DAILY Qty: 90 3RF metoprolol tartrate 50 mg tablet See Rx Instructions .ROUTE .COMPLEX Qty: 90 3RF Dose Instruction: Take one tablet by mouth one time daily Rx Instructions: Take one tablet by mouth one time daily multivitamin [Multiple Vitamins] Tablet 1 tab PO DAILY 0RF Immune Support Complex 75 mg Tablet 1 cap PO DAILY 0RF Artichoke Extract 450 mg PO TID 0RF omega 6-xbm-rtu-fish oil [Fish Oil] 300-1,000 mg Capsule 1 cap PO DAILY 0RF olive leaf extract 250 mg Capsule 500 mg PO TID 0RF Glucosamine Chondroitin 550-30-1 mg Capsule 1 cap PO DAILY 0RF Berberine 1 tab DAILY 0RF [place] Tail Mushroom 1 tab BID 0RF acetaminophen [Tylenol] 325 mg Tablet 650 mg PO Q6H PRN (Reason: Pain (Scale Score 4-6)) 0RF ibuprofen 200 mg Tablet 400 mg PO Q6H PRN (Reason: Pain (Scale Score 4-6)) 0RF letrozole 2.5 mg Tablet 2.5 mg PO DAILY Qty: 90 3RF Discontinued meloxicam 15 mg tablet 15 mg PO DAILY Qty: 90 1RF Follow up/Referrals: Valeria Purvis ARNP [Primary Care Provider] - Selma Etienne MD [Physician] - (2 weeks) Diet/Activity/Treatments Diet: Diet as Tolerated Activity: Weight-bearing as tolerated, posterior hip precautions Cold/Heat Therapy: Ice to hip as needed Skin/Wound/Dressing Care Report to your healthcare provider any signs of infection, such as:: chills, fever, increased pain, unusual drainage and unusual redness Dressing: Keep dressing clean and dry Visit Report/Discharge Packet Instructions: DI for Hip Replacement Stand Alone Forms: Surgery Discharge Discharge Data Primary Care Provider: Valeria Purvis Attending Provider: Selma Etienne VTE Deep Vein Thrombosis/Pulmonary Embolism Present on Admission: No
[2021-07-29] MEDS: SODIUM CHLORIDE 0.9% 500 ML 1000 ML IV (11:12)
[2021-07-29 11:15] VITALS: BP 109/60; PULSE 58; RESP 17; TEMP 35.8; O2SAT 100
--- NOTE | 2021-07-29 13:35 | PT.IIE ---
Current Diagnoses Unilateral primary osteoarthritis, right hip (07/28/21) Surgery Performed Operation Date: 07/28/21 12:45 Actual Procedures p Total Hip Arthroplasty(Right) - Selma Etienne MD Medical History (Last Reviewed 07/29/21 @ 10:27 by Bakari Buchanan PA-C) Acute right hip pain Bilateral bunions Breast cancer Breast cancer of lower-inner quadrant of right female breast Breast cancer, right breast Cervical somatic dysfunction Chronic low back pain Chronic pain of both knees Chronic pain of right knee Family history of breast cancer in mother Flat feet, bilateral History of antineoplastic chemotherapy History of malignant neoplasm of ovary in adulthood HTN (hypertension) Hyperglycemia Hyperlipidemia Iliotibial band syndrome, right leg Lumbar region somatic dysfunction Neck stiffness Numbness and tingling in both hands Obesity 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 Ovarian carcinoma (~2005) Pain in lateral portion of right knee Pelvic somatic dysfunction Port-A-Cath in place Right knee pain Sacral region somatic dysfunction Segmental and somatic dysfunction of abdomen and other regions Somatic dysfunction of lower extremity Thoracic region somatic dysfunction Transaminitis Physical Therapy Inpatient Evaluation/Re-Eval M1 PT/OT-IP Prior Functional Status Start: 07/29/21 12:45 Freq: NEEDED Status: Active Protocol: Document 07/29/21 09:10 AB (Rec: 07/29/21 13:03 AB [id number]) Medical Review Prior Functional Status Medical History Reviewed Yes Communication able to make needs known Mobility and Gait pt stated that she is modified idnependent with all mobilities and ambulation using a 4WW Social History Household Members spouse Living Arrangements House Number of Floors (Floors) Two Floors Number of Stairs To Enter/Railing? pt stays on main level of the house 7 steps L rail to enter Home Environment Standard Height Toilet,Tub/ Shower Home Equipment Four Wheel Walker,Raised Toilet Seat w/Armrests,Tub Transfer Bench,Hand Held Shower,Grab Bars Near Toilet, Grab Bars In Shower M2 PT-IP Current Condition Start: 07/29/21 12:45 Freq: NEEDED Status: Active Protocol: Document 07/29/21 09:10 AB (Rec: 07/29/21 13:03 AB [email or web address]) Physical Therapy Current Condition Current Condition Evaluation Date 07/29/21 Treatment Diagnosis s/p R JOHN posterior approach; difficulty in walking Onset Date 07/28/21 M3 PT-IP Subjective Start: 07/29/21 12:45 Freq: NEEDED Status: Active Protocol: Document 07/29/21 13:35 AB (Rec: 07/29/21 15:48 AB [email or web address]) Subjective Physical Therapy Visit Type Type Treatment Note Visit Start Time 13:35 Visit Stop Time 14:45 Number of TUBE PUSHER Visits 0 Physical Therapy Visit Comments Patient Comments pt is agreeable to do PT; spouse in room for training M4 PT-IP Mobility and Gait Start: 07/29/21 12:45 Freq: NEEDED Status: Active Protocol: Document 07/29/21 13:35 AB (Rec: 07/29/21 15:48 AB [email or web address]) PT-Bed Mobility Assessment Supine to Sit Supine to Sit Moderate Assistance,Maximum Assistance,1 Person Assistance Sit to Supine Sit to Supine Moderate Assistance,Maximum Assistance,1 Person Assistance PT-Transfer Assessment Sit to and From Stand Sit to and from Stand Minimal Assistance,Moderate Assistance,1 Person Assistance ,Use of Upper Extremities Equipment Transfer Assistive Device Gait Belt,Front Wheeled Walker ,4 Wheeled Walker Orthotic/Prosthetic Devices or Brace: No Transfers Transfer Destination Toilet Transfer Technique ambulated Transfer Ability Level of Assist Minimal Assistance,Moderate Assistance,1 Person Assistance ,Use of Upper Extremities Comments Mobility Comments spouse in room for caregiver training. educated and reviewed hip posterior precautions. pt completed supine to sit mod to max a and max cues. educated spouse on how to assist pt. completed sit to supine mod A and cues. pt got up again with spouse assisiting and completed safely. educated spouse on how to use safety belt and how to assist pt. spouse was able to put safety belt on. assisted pt with sit to stand mod A and pt requested to use the toilet. pt ambulated to the toilet using 4WW mod A with spouse assisting. completed toileting but requires assist with hygiene care. pt ambulated out of the toilet using 4WW with spouse assisting and ambulated out in room ~ 25 ft mod A with ambulation. spouse was able to assist pt with ambulation using 4WW. pt sat on chair. educated pt on stair climbing. Pt clarified that her first 5 steps are platform steps and the last 2 are regular steps with L rail. spouse will bring pt's FWW tomorrow. informed pt and spouse that pt is steadier and safer with FWW at this time. Both agreed. PT stepped out of pt's room to inform nurse regarding IV connection disconnected temporarily for stair climbing . When PT came back, pt stated that she moved on the chair to scoot and heard a pop on her R hip and has initial pain but now does not have any pain. spouse stated that pt had enough PT at this time. pt wants to go back to bed. Stair climbing training not completed. Nurse told pt that she does not have to go home today. pt completed sit to stand from chair with spouse assisting mod to max . pt c/o increase R hip pain. completed step transfer to bed mod A using FWW. completed sit to supine mod ot max A with LE elevation. positioned pt in bed. call light and table placed wtihin reach. set up another caregiver training with spouse and will comein ~ 1030 am for caregiver training. Gait Assessment Gait Gait Assistance Required: Minimum Assistance,Moderate Assistance Distance (Feet) 25 Able to Maintain Weight Bearing Status Yes During Gait Assistive Devices Assistive Device Gait Belt,4 Wheeled Walker Orthotic/Prosthetic Devices or Brace: No Gait Deviations General Gait Pattern Antalgic,Decreased Stride Length,Decreased Feet Clearance Factors Limiting Gait Function Factors Limiting Gait Function Decreased Activity Tolerance, Decreased Strength,Limited Range of Motion,Pain,Poor Balance,Poor Safety Awareness M5 PT-IP Objective Assessments Start: 07/29/21 12:45 Freq: NEEDED Status: Active Protocol: Document 07/29/21 09:10 AB (Rec: 07/29/21 13:03 AB [email or web address]) Orientation Orientation/Cognition Level of Alertness Alert Orientation Name,Place,Situation Language Function Ability No Deficits Noted Safety Awareness Understands Safety Issues Memory Description Short Term Impaired Gross Range of Motion Lower Extremity ROM Assessment Within Functional Limits Strength Lower Extremity Strength Assessment Right Impaired Hip 3-/5 Knee 4-/5 Coordination Assessment Gross Coordination Gross Coordination WNL Sensation Assessment Sensation Gross Sensation WNL Muscle Tone Muscle Tone WNL Yes M6 PT-IP Treatment Start: 07/29/21 12:45 Freq: NEEDED Status: Active Protocol: Document 07/29/21 13:35 AB (Rec: 07/29/21 15:48 AB [email or web address]) Physical Therapy Treatment Education Education Provided Precautions,Weight Bearing Status,Safety M7 PT-IP Assessment and Plan Start: 07/29/21 12:45 Freq: NEEDED Status: Active Protocol: Document 07/29/21 13:35 AB (Rec: 07/29/21 15:48 AB [email or web address]) PT Summary Assessment and Plan Potential Rehabilitation Potential Fair Summary Impairments Pain,ROM,Strength,Balance, Coordination,Sensation,Tone, Cognition,Bed Mobility, Transfers,Gait,Activity Tolerance Progress Towards Goals Slow Progress due to Pain,Slow Progress due to Activity Tolerance,Slow Progress - Other Assessment Summary caregiver training conducted but requires further training. set up caregiver training for tomorrow at 1030 am. Spouse will bring pt's FWW. will continue to assess progress. Goals Bed Mobility Goal Independent Transfer Goal Independent Gait Goal Independent,Front Wheel Walker Gait Distance 150 Other Goals ambulation using 4WW SBA 200 ft up/down 5 platform steps using FWW + 2 steps using L rail ascending CGA Days to Meet Goals 10 Frequency of Treatment Frequency Of Treatment Twice a Day Treatment Plan Physical Therapy Treatment Plan Bed Mobility Training,Transfer Training,Gait Training, Therapeutic Exercise,Balance Retraining,Post Op Education, Discharge Planning,Hot or Cold Pack,Neuromuscular Re-ed, Coordination Retraining,Manual Therapy Precautions Posterior Hip Precautions No Hip Flexion > 90 degrees,No Hip Internal Rotation,No Hip Adduction Weight Bearing Status Weight Bearing Status Weight Bear as Tolerated Allowed Weight Bearing Amount (enter % RLE WBAT or #) (%) Recommendations To Nursing Amount of Assist Needed 1 Person Assist Discharge Recommendations PT Discharge Recommendations Home with Assistance, Outpatient PT Transportation Needs at Discharge Private Vehicle,Wheelchair/ Cabulance
--- NOTE | 2021-07-29 14:46 | CM.DANOTE ---
Patient is a 71 yo female who was admitted on 07/28/21 for RTHA. Pt as MCR and PRE PREFERRED for insurance and her PCP is Dr. Subhash Mendoza/Valeria Purvis. EMR was reviewed. Per Ortho PA, pt tolerated procedure well and medically stable to d/c home today pending PT eval. Per PT, pt was able to participate in initial eval and called spouse to arrive this afternoon for CG tranining and recommending safe d/c home with spouse assist and outpt PT. SW met bedside with pt and explained role and she confirms she lives in [place] with her spouse and is independent with ADL's at baseline and uses a 4WW for ambulation. Pt denies any hx of SNF and states her spouse is available for assist at d/c. Pt is fully COVID vaccinated and DPOA is her spouse. Pt does not anticipate any needs at d/c and is hopeful for easy transition home later today. Plan: SW to follow after CG tranining with spouse and PT around 1330 to confirm safe d/c home today with outpt PT and any further identified needs. WILMER Patricio Discharge Planning/Care Management CM Discharge Assessment Start: 07/29/21 14:44 Freq: Status: Active Protocol: Document 07/29/21 14:44 BF (Rec: 07/29/21 14:46 BF [id number]) Discharge Planning Assessment Assigned Meter Mechanic WILMER Austin DPOA/Assigned Designee Name grant Correa Contact Information [phone] Advance Directives? No Advance Directives on File No History Provided By Patient,Medical Record Has Patient been admitted in last 30 No days? Prior Living Arrangements House Household Members spouse Type of transporation used prior to Drives own vehicle admit Independent with ADL's Yes Is patient alert and oriented? Yes Caregiver for Another No Community Services used prior to Physical Therapy admission: DME Already Rented / Owned FWW / Walker Patient/Family Preference OP PT Therapy Barriers to Discharge No Discharge Plan Home Community Services Physical Therapy Transportation Arrangement Spouse will be bedside 1330 for CG training with PT and will provide transport home Referrals Initiated None needed Whiteboard Updated in Patient Room with Yes name and ext. # of Meter Mechanic Review Status In Process Please Provide Date Initial DC 07/29/21 Assessment Was Performed Next Review Type Continued Stay Review
--- NOTE | 2021-07-29 15:39 | DI.RAD.S_ITS ---
PROCEDURE: XR HIP W PEL IF DONE RT 2V INDICATIONS: post surgical popping in hip TECHNIQUE: 3 views of the hip were acquired. COMPARISON: , CR, XR HIP W PEL IF DONE RT 2V, 07/28/2021, 16:34. FINDINGS: Bones: Total right hip prosthesis in good position. Right soft tissue drain in place. Pelvic rim and left hip unremarkable. Soft tissues: No suspicious soft tissue calcifications or masses. Overlying skin chel IMPRESSION: Total right hip arthroplasty in good position Approved by: Miquel Gross M.D. on 07/29/2021 at 16:57
--- NOTE | 2021-07-29 15:59 | PC.NURSE ---
Assuming care of patient from Tete rodríguez. Per previous RN patient had complained of a pop during ambulation with P.T. Patient currently laying in bed, denies numbness or tingling in legs. Palpable pulse and cap refill to right foot. Patient able to move right leg but unable to lift off the bed at this time, awaiting xray of right hip per Dr. Etienne. Patient denies pain at rest. Call light within reach, continue to monitor.
[2021-07-29 16:45] VITALS: BP 113/61; PULSE 59; RESP 16; TEMP 36.4; O2SAT 100
[2021-07-29 20:19] VITALS: BP 115/54; PULSE 77; RESP 14; TEMP 36.8; O2SAT 98
[2021-07-30] MEDS: IBUPROFEN 400 MG TABLET PO ×5 (01:49→20:38)
[2021-07-30 02:05] VITALS: BP 131/64; PULSE 79; RESP 14; TEMP 36.8; O2SAT 97
[2021-07-30 06:50] VITALS: BP 150/71; PULSE 83; RESP 16; TEMP 36.4; O2SAT 99
[2021-07-30 09:20] VITALS: BP 147/71; PULSE 94; RESP 16; TEMP 37.1; O2SAT 97
[2021-07-30] MEDS: FISH OIL 1,000 MG CAPSULE 1000 MG PO (09:40)
[2021-07-30] MEDS: hydroCHLOROthiazide 25 MG TABLET PO (09:40)
[2021-07-30] MEDS: VALSARTAN 80 MG TABLET 320 MG PO (09:41)
[2021-07-30] MEDS: MULTIVITAMIN 1 TABLET 1 TAB PO (09:41)
[2021-07-30] MEDS: CHOLECALCIFEROL (VITAMIN D3) 1,000 UNIT TABLET 1000 UNIT PO (09:42)
[2021-07-30] MEDS: ASPIRIN EC 81 MG TABLET PO ×2 (09:42→20:38)
[2021-07-30] MEDS: DOCUSATE 100 MG CAPSULE PO ×2 (09:42→20:38)
[2021-07-30] MEDS: METOPROLOL IR 50 MG TABLET PO (09:42)
[2021-07-30] MEDS: AMLODIPINE 5 MG TABLET 10 MG PO (09:42)
[2021-07-30] MEDS: ACETAMINOPHEN 325 MG TABLET 650 MG PO ×3 (09:42→20:38)
--- NOTE | 2021-07-30 10:36 | PM.PNPO.1 ---
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 She was having 0 pain prior to that. She is taking only ibuprofen and Tylenol for pain currently. She notes she is apprehensive to go home because she is worried about her mobility. Her works on a full-time basis. Exam Vital Signs (past 8 hours): - 07/30/21 06:50 07/30/21 09:20 Temperature 97.6 F 98.7 F Pulse Rate 83 94 H Respiratory Rate 16 16 Blood Pressure 150/71 H 147/71 H Pulse Oximetry 99 97 Oxygen Delivery Method Room Air Oxygen Flow Rate 0 Narrative Exam Narrative: She is alert she is oriented she is resting comfortably in bed. I size 2nd her a 2nd time and she was mobilizing with physical therapy. She does have significant stiffness and some weakness in her arms which made mobilizing out of bed to the walker somewhat difficult and challenging. Her dressings intact. Calves are soft distally leg lengths are equal and she has minimal pain with gentle range of motion at her hip and is able to fire her hip flexor and quad. Objective Labs Result Diagrams: 07/29/21 04:43 Labs: X-rays from yesterday show acceptable alignment of her right hip no evidence of subluxation or fracture. [facility] Medical History Acute right hip pain Bilateral bunions Breast cancer Breast cancer of lower-inner quadrant of right female breast Breast cancer, right breast Cervical somatic dysfunction Chronic low back pain Chronic pain of both knees Chronic pain of right knee Family history of breast cancer in mother Flat feet, bilateral History of antineoplastic chemotherapy History of malignant neoplasm of ovary in adulthood HTN (hypertension) Hyperglycemia Hyperlipidemia Iliotibial band syndrome, right leg Lumbar region somatic dysfunction Neck stiffness Numbness and tingling in both hands Obesity 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 Ovarian carcinoma (~2005) Pain in lateral portion of right knee Pelvic somatic dysfunction Port-A-Cath in place Right knee pain Sacral region somatic dysfunction Segmental and somatic dysfunction of abdomen and other regions Somatic dysfunction of lower extremity Thoracic region somatic dysfunction Transaminitis Surgical History History of colonoscopy History of incisional hernia repair History of lumpectomy of right breast (05/27/18) History of total abdominal hysterectomy and bilateral salpingo-oophorectomy Family History Father Hypertension Mother Breast cancer Social History marital status: household members: spouse Smoking Status: Never smoker alcohol intake: current substance use type: does not use Assessment & Plan Post-op Postoperative Procedures: Procedures Operation Date: 07/28/21 12:45 Actual Procedure Side Surgeon p Total Hip Arthroplasty Right Selma Etienne MD Postoperative day: 2 Postoperative status: doing well and other (Mobility issues) Postoperative status narrative: She is doing okay postoperatively. She is having some mobility issues. I watched her mobilized to a chair. She did require some assistance and had some issues with her precautions. Postoperative plan: routine post-op care Postoperative plan narrative: Progressing postoperatively work with physical therapy today. She does have significant mobility issues and potentially could be discharged to home tomorrow. She did have a popping episode but her x-rays show acceptable alignment and no obvious fracture or subluxation. Time Spent With Patient Time with patient: 15-24 minutes Quality VTE Deep Vein Thrombosis/Pulmonary Embolism Present on Admission: No
--- NOTE | 2021-07-30 11:22 | CM.DPC ---
DCP/continued: Reviewed chart. Per provider patient did not d/c home last pm after after child care associate training due to pain. Dr. Etienne discussed the possibility of this patient going to SNF. BEAMING MACHINE OPERATOR notified provider that SNF are difficult to locate due to current COVID outbreak. Dr. Etienne discussed options with patient and spouse and home with home health decided. Therapy working with [facility] this AM. Both Dr. Etienne and patient/spouse don't feel that patient is reay to d/c home today? BEAMING MACHINE OPERATOR met with patient and spouse about home health. Patient has no preference in agencies therefore referral will be given to [facility] because they are preferred provider this calender week. Spouse also interested in caregivers for when spouse cannot be there during the day because he works. BEAMING MACHINE OPERATOR offered resources but spoue has friend that is currently using one and he will get name/number from him. Order obtained and F2F completed. Placed call to [facility] and faxed needed clinical. [facility] reports that they can see patient in the residence on either Saturday or Saturday. [facility] would like d/c summary faxed to [facility] when it becomes available. Left note for CM team. P: Home tomorrow, home health has been arranged through [facility] . JOHNIE
--- NOTE | 2021-07-30 11:39 | PT.IPTN ---
Current Diagnoses Unilateral primary osteoarthritis, right hip (07/28/21) Surgery Performed Operation Date: 07/28/21 12:45 Actual Procedures p Total Hip Arthroplasty(Right) - Selma Etienne MD Physical Therapy Treatment Note M2 PT-IP Current Condition Start: 07/29/21 12:45 Freq: NEEDED Status: Active Protocol: Document 07/29/21 09:10 AB (Rec: 07/29/21 13:03 AB [id number]) Physical Therapy Current Condition Current Condition Evaluation Date 07/29/21 Treatment Diagnosis s/p R JOHN posterior approach; difficulty in walking Onset Date 07/28/21 M3 PT-IP Subjective Start: 07/29/21 12:45 Freq: NEEDED Status: Active Protocol: Document 07/30/21 11:12 AW (Rec: 07/30/21 11:39 AW [id number]) Subjective Physical Therapy Visit Type Type Treatment Note Visit Start Time 10:44 Visit Stop Time 11:12 Total Visit Minutes 28 Physical Therapy Visit Comments Patient Comments pt is agreeable to do PT; spouse in room for training Therapy Pain Assessment Pain When Pain Assessed At Rest Pain Present Pain Present Allowed to Sleep Location Right Hip Intensity 3 Scale Used 3/10 at rest; unchanged with mobility M4 PT-IP Mobility and Gait Start: 07/29/21 12:45 Freq: NEEDED Status: Active Protocol: Document 07/30/21 11:12 AW (Rec: 07/30/21 11:39 AW [id number]) PT-Transfer Assessment Sit to and From Stand Sit to and from Stand Minimal Assistance,Moderate Assistance,1 Person Assistance ,Use of Upper Extremities Equipment Transfer Assistive Device Gait Belt,Front Wheeled Walker Orthotic/Prosthetic Devices or Brace: No Transfers Transfer Technique ambulated with FWW Transfer Ability Level of Assist Minimal Assistance,1 Person Assistance,Use of Upper Extremities Comments Mobility Comments Spouse was in room as PT arrived, ready for continued caregiver training. Pt had just transferred to the chair but was willing to get up again. Educated pt and spouse on functional implications of posterior hip precaution, including sleep positioning and caution in turns. Pt's spouse applied gait belt and assisted pt to stand min/mod A x 1. Pt ambulated in the room , requiring CGA/min A x 1 which spouse was able to provide. Pt noted improve pain management today and responded well to cues for heel strike RLE. Pt ambulated into the luo and participated in stair training on platform step (see below). She continued to walk ~60 feet before returning to the chair and transferring min A x 1 with assist needed to slow descent. Gait Assessment Gait Gait Assistance Required: Contact Guard Assist,Minimum Assistance,1 Person Assist Distance (Feet) 60 Able to Maintain Weight Bearing Status Yes During Gait Assistive Devices Assistive Device Gait Belt,Front Wheeled Walker Orthotic/Prosthetic Devices or Brace: No Gait Deviations General Gait Pattern Antalgic,Decreased Stride Length,Decreased Feet Clearance,Flexed Trunk Factors Limiting Gait Function Factors Limiting Gait Function Decreased Activity Tolerance, Decreased Strength,Limited Range of Motion,Pain,Poor Balance,Poor Safety Awareness Comments Gait Comments PT adjusted pt's own FWW which she used for ambulation. Spouse provided assist. PT cued pt to extend hips and to initiate RLE step with heelstrike. Step length and RLE weightbearing improved with pt concentrating on heelstrike. Stair Climbing Assessment Evaluation Level of Assist On Stairs Minimal Assistance,Moderate Assistance,1 Person Assistance Devices Stair Climbing Assistive Devices Front Wheel Walker Technique/Endurance Stair Climbing Direction Ascend and Descend Stair Climbing Technique Step to Step Number of Steps Climbed 1 Stair Climbing Set # Repetitions (reps) 1 Comments Stair Climbing Comments Initiated stair training on platform step using FWW. Pt able to verbally teach back technique before and during practice. Spouse provided min/ mod assist. PT-Balance Assessment Sitting Balance and Reactions Static Sitting Balance Ability Good Dynamic Sitting Balance Ability Good Standing Balance and Reactions Static Standing Balance Ability Fair Dynamic Standing Balance Ability Fair Device Used FWW M5 PT-IP Objective Assessments Start: 07/29/21 12:45 Freq: NEEDED Status: Active Protocol: Document 07/29/21 09:10 AB (Rec: 07/29/21 13:03 AB [id number]) Orientation Orientation/Cognition Level of Alertness Alert Orientation Name,Place,Situation Language Function Ability No Deficits Noted Safety Awareness Understands Safety Issues Memory Description Short Term Impaired Gross Range of Motion Lower Extremity ROM Assessment Within Functional Limits Strength Lower Extremity Strength Assessment Right Impaired Hip 3-/5 Knee 4-/5 Coordination Assessment Gross Coordination Gross Coordination WNL Sensation Assessment Sensation Gross Sensation WNL Muscle Tone Muscle Tone WNL Yes M6 PT-IP Treatment Start: 07/29/21 12:45 Freq: NEEDED Status: Active Protocol: Document 07/30/21 11:12 AW (Rec: 07/30/21 11:39 AW [id number]) Physical Therapy Treatment Education Education Provided Precautions,Weight Bearing Status,Safety M7 PT-IP Assessment and Plan Start: 07/29/21 12:45 Freq: NEEDED Status: Active Protocol: Document 07/30/21 11:12 AW (Rec: 07/30/21 11:39 AW [id number]) PT Summary Assessment and Plan Potential Rehabilitation Potential Fair Summary Impairments Pain,ROM,Strength,Balance, Coordination,Sensation,Tone, Cognition,Bed Mobility, Transfers,Gait,Activity Tolerance Progress Towards Goals Progressing Toward Goals,Slow Progress due to Pain,Slow Progress due to Activity Tolerance Assessment Summary Continued caregiver training and pt tolerated increased ambulation distance with decreased assist. Initiated stair training and plan to continue at PM session. Pt's spouse works outside the home and is gone [phone] at least five days/week. They are considering [employer] or friends to spend time with pt during 's working hours. Pt would benefit from PT to progress strength and mobility independence. Goals Bed Mobility Goal Independent Transfer Goal Independent Gait Goal Independent,Front Wheel Walker Gait Distance 150 Other Goals ambulation using 4WW SBA 200 ft up/down 5 platform steps using FWW + 2 steps using L rail ascending CGA Days to Meet Goals 10 Frequency of Treatment Frequency Of Treatment Twice a Day Treatment Plan Physical Therapy Treatment Plan Bed Mobility Training,Transfer Training,Gait Training, Therapeutic Exercise,Balance Retraining,Post Op Education, Discharge Planning,Hot or Cold Pack,Neuromuscular Re-ed, Coordination Retraining,Manual Therapy Precautions Posterior Hip Precautions No Hip Flexion > 90 degrees,No Hip Internal Rotation,No Hip Adduction Weight Bearing Status Weight Bearing Status Weight Bear as Tolerated Allowed Weight Bearing Amount (enter % RLE WBAT or #) (%) Recommendations To Nursing Amount of Assist Needed 1 Person Assist Discharge Recommendations PT Discharge Recommendations Home with Assistance, Outpatient PT Transportation Needs at Discharge Private Vehicle
--- NOTE | 2021-07-30 11:47 | PC.NURSE ---
2 person assist to BSC then chair, out in luo with PT. Dr. Etienne here earlier to encourage and help instructional technology coach pt oob. cms intact no c/o at this time.
[2021-07-30 12:45] VITALS: BP 142/68; PULSE 67; RESP 16; TEMP 37.1; O2SAT 99
--- NOTE | 2021-07-30 14:07 | PT.IPTN ---
Current Diagnoses Unilateral primary osteoarthritis, right hip (07/28/21) Surgery Performed Operation Date: 07/28/21 12:45 Actual Procedures p Total Hip Arthroplasty(Right) - Selma Etienne MD Physical Therapy Treatment Note M2 PT-IP Current Condition Start: 07/29/21 12:45 Freq: NEEDED Status: Active Protocol: Document 07/29/21 09:10 AB (Rec: 07/29/21 13:03 AB [id number]) Physical Therapy Current Condition Current Condition Evaluation Date 07/29/21 Treatment Diagnosis s/p R JOHN posterior approach; difficulty in walking Onset Date 07/28/21 M3 PT-IP Subjective Start: 07/29/21 12:45 Freq: NEEDED Status: Active Protocol: Document 07/30/21 14:07 AW (Rec: 07/30/21 15:21 AW [id number]) Subjective Physical Therapy Visit Type Type Treatment Note Visit Start Time 13:39 Visit Stop Time 14:07 Total Visit Minutes 28 Number of BENEFITS DIRECTOR Visits 0 Physical Therapy Visit Comments Patient Comments Pt is willing to participate with PT Patient Goals Return home with spouse support and private caregivers . Therapy Pain Assessment Pain When Pain Assessed At Rest Pain Present Pain Present Pain Reported Location Right Hip Scale Used not quantified M4 PT-IP Mobility and Gait Start: 07/29/21 12:45 Freq: NEEDED Status: Active Protocol: Document 07/30/21 14:07 AW (Rec: 07/30/21 15:21 AW [id number]) PT-Bed Mobility Assessment Supine to Sit Supine to Sit Minimal Assistance,1 Person Assistance Sit to Supine Sit to Supine Minimal Assistance,1 Person Assistance PT-Transfer Assessment Sit to and From Stand Sit to and from Stand Contact Guard Assistance, Minimal Assistance,1 Person Assistance,Use of Upper Extremities Equipment Transfer Assistive Device Gait Belt,Front Wheeled Walker Orthotic/Prosthetic Devices or Brace: No Transfers Transfer Destination Bed,Wheelchair Transfer Technique ambulated with FWW Transfer Ability Level of Assist Minimal Assistance,1 Person Assistance,Use of Upper Extremities Comments Mobility Comments Pt was lying in the bed as PT arrived. She completed supine to sit min A x 1 and stood from the bed in its lowest position CGA. She ambulated to the hallway and transferred to the w/c min A x 1. PT wheeled pt to the stairs. She stood min A x 1 and used FWW to approach. PT moved FWW out of the way as pt contacted the rails. She was able to ascend step-to using left hand on left rail while lifting left leg to the next step and then using both hands on left rail to pull RLE up. She completed three steps in this fashion min A x 1. On descent, pt was tired and used both rails min A x 1. She contacted the FWW and ambulated 75 feet with FWW SBA while PT followed with w/ c. Pt fatigued and requested to sit on the chair, transferring min A x 1. On return to the room, pt stood CGA and used FWW to walk back to the bed, transferring to supine min A x 1. Pt was left with call light and tray table in reach. Gait Assessment Gait Gait Assistance Required: Standby Assistance,Contact Guard Assist Distance (Feet) 80 Able to Maintain Weight Bearing Status Yes During Gait Assistive Devices Assistive Device Gait Belt,Front Wheeled Walker Orthotic/Prosthetic Devices or Brace: No Gait Deviations General Gait Pattern Antalgic,Decreased Stride Length,Decreased Feet Clearance,Flexed Trunk Factors Limiting Gait Function Factors Limiting Gait Function Decreased Activity Tolerance, Decreased Strength,Limited Range of Motion,Pain,Poor Balance,Poor Safety Awareness Comments Gait Comments Pt verbalized heel first while walking and maintained pattern of heel strike at initial contact ~90% of strides. Stair Climbing Assessment Evaluation Level of Assist On Stairs Minimal Assistance,1 Person Assistance Devices Stair Climbing Assistive Devices Left Railing,Right Railing Technique/Endurance Stair Climbing Direction Ascend and Descend Stair Climbing Technique Step to Step Number of Steps Climbed 3 Stair Climbing Set # Repetitions (reps) 1 Comments Stair Climbing Comments See mobility comments for details. PT-Balance Assessment Sitting Balance and Reactions Static Sitting Balance Ability Good Dynamic Sitting Balance Ability Good Standing Balance and Reactions Static Standing Balance Ability Fair Dynamic Standing Balance Ability Fair Device Used FWW M5 PT-IP Objective Assessments Start: 07/29/21 12:45 Freq: NEEDED Status: Active Protocol: Document 07/29/21 09:10 AB (Rec: 07/29/21 13:03 AB [email or web address]) Orientation Orientation/Cognition Level of Alertness Alert Orientation Name,Place,Situation Language Function Ability No Deficits Noted Safety Awareness Understands Safety Issues Memory Description Short Term Impaired Gross Range of Motion Lower Extremity ROM Assessment Within Functional Limits Strength Lower Extremity Strength Assessment Right Impaired Hip 3-/5 Knee 4-/5 Coordination Assessment Gross Coordination Gross Coordination WNL Sensation Assessment Sensation Gross Sensation WNL Muscle Tone Muscle Tone WNL Yes M6 PT-IP Treatment Start: 07/29/21 12:45 Freq: NEEDED Status: Active Protocol: Document 07/30/21 14:07 AW (Rec: 07/30/21 15:21 AW [id number]) Physical Therapy Treatment Education Education Provided Precautions,Weight Bearing Status,Safety M7 PT-IP Assessment and Plan Start: 07/29/21 12:45 Freq: NEEDED Status: Active Protocol: Document 07/30/21 14:07 AW (Rec: 07/30/21 15:21 AW [id number]) PT Summary Assessment and Plan Summary Impairments Pain,ROM,Strength,Balance, Coordination,Sensation,Tone, Cognition,Bed Mobility, Transfers,Gait,Activity Tolerance Progress Towards Goals Progressing Toward Goals Assessment Summary Pt improved gait distance again with good attention to precautions and gait mechanics . She practiced stairs with rails and states stairs at her home entrance are wide enough for her to use left side rail and have her spouse provide ENERGY ADVISOR on the right side. Pt would benefit from PT to progress strength and mobility independence. Goals Bed Mobility Goal Independent Transfer Goal Independent Gait Goal Independent,Front Wheel Walker Gait Distance 150 Other Goals ambulation using 4WW SBA 200 ft up/down 5 platform steps using FWW + 2 steps using L rail ascending CGA Days to Meet Goals 10 Frequency of Treatment Frequency Of Treatment Twice a Day Treatment Plan Physical Therapy Treatment Plan Bed Mobility Training,Transfer Training,Gait Training, Therapeutic Exercise,Balance Retraining,Post Op Education, Discharge Planning,Hot or Cold Pack,Neuromuscular Re-ed, Coordination Retraining,Manual Therapy Other Recommendations and Next Treatment when spouse available, review Focus stairs (platform and with rail ) and answer any remaining questions about mobility at home Precautions Posterior Hip Precautions No Hip Flexion > 90 degrees,No Hip Internal Rotation,No Hip Adduction Weight Bearing Status Weight Bearing Status Weight Bear as Tolerated Allowed Weight Bearing Amount (enter % RLE WBAT or #) (%) Recommendations To Nursing Amount of Assist Needed 1 Person Assist Discharge Recommendations PT Discharge Recommendations Home with Assistance, Outpatient PT Transportation Needs at Discharge Private Vehicle
[2021-07-30 15:50] VITALS: BP 153/63; PULSE 71; RESP 15; TEMP 36.7; O2SAT 99
[2021-07-30] MEDS: SODIUM CHLORIDE 0.9% FLUSH 10 ML IV (20:39)
[2021-07-30 22:45] VITALS: BP 143/53; PULSE 72; RESP 20; TEMP 36.8; O2SAT 97
--- NOTE | 2021-07-30 23:37 | PC.NURSE ---
Patient is alert and oriented. Breath sounds CTA with RA sat of 97%. HRR. BP elevated at 143/53; has trended high recently and is on antihypertensives. Denied nausea. BT present and is passing flatus; states she has not had a BM since 07/27. Denied dysuria, frequency or urgency with urination. Able to move self in bed. Does need some assistance to sit up in bed and get back into bed but once standing with walker and side of bed is able to ambulate in/out of bathroom with only SBA. RYAN dressing to right hip is intact and functioning; small spots of drainage noted. Dressing over hemovac site is CDI. States pain is only 3/10 and was medicated with scheduled Tylenol + Ibuprofen and ice pack applied. Wearing bilateral calf SCD's. Fall risk score is high and bed alarm is activated.
[2021-07-31] MEDS: IBUPROFEN 400 MG TABLET PO ×4 (00:49→14:20)
[2021-07-31] MEDS: OXYCODONE IR 5 MG TABLET PO (03:54)
--- NOTE | 2021-07-31 07:32 | PM.DS.1 ---
History of Present Illness History of Present Illness Date Patient Seen: 07/31/21 Time Patient Seen: 07:32 Chief complaint: Right hip pain s/p right JOHN Narrative: Patient is sleepy this morning and will not take off the washcloth covering her eyes to talk to me. Otherwise she states her pain is mild. She had a popping sensation yesterday but this pain has mostly resolved. She feels she is mobilizing better with physical therapy and is safe to discharge home today. Denies any fevers, chills, night sweats. No new numbness or tingling. Discharge Providers Provider Date of admission: 07/29/21 10:50 Discharge Date: 07/31/21 Primary care physician: ENEIDA Bradley Consults: 07/28/21 13:18 Consult to Anesthesiology Routine Comment: Consulting Provider: Anesthesiologist Reason for consultation: Regional block for post operative pain control 07/28/21 17:31 Consult to Discharge Planning Routine Comment: Consult to Physical Therapy Evaluate & Treat Comment: Physician Instructions: post op JOHN protocol Consult to Respiratory Therapy Evaluate & Treat Comment: Physician Instructions: Evaluate and treat 07/30/21 11:06 Consult to Home Health Routine Comment: DX: right JOHN on 07-28-21 Reason For Exam: Home Health for PT/OT Discharge provider: Christen Downs PA-C Summary Hospital Course Discharge Diagnosis: right hip AVN, right hip OA Hospital Course: Operative Date/Time/Diagnoses Date of procedure: 07/28/21 Time of procedure: 13:46 Procedure & Clinicians Procedure: Right total hip arthroplasty posterior approach Same procedure as scheduled: Yes Indications: The patient has had progressively worsening right hip pain with radiographic changes consistent with arthritis. Non-operative management has failed and the patient has requested total hip replacement. The risks, benefits and alternatives to surgery were discussed with the patient prior to proceeding. Risks discussed included, but were not limited to, failure to relieve pain, leg length discrepancy, dislocation, stiffness, infection, nerve damage, deep venous thrombosis, pulmonary embolism, stroke, coma, heart attack, permanent paralysis and , as well as the potential need for eventual revision of the prosthetic. Surgeon: Selma Etienne Economic Development Director: Sue Benitez Anesthesia Type: General Operative Notes Findings: Severe right hip osteoarthritis, severe destruction of the acetabulum was some proximal subluxation Closure Type: primary Specimen(s): none sent Prosthetic devices, grafts, tissues, transplants, or devices: Etienne and Nephew 52 mm read out cup 3 screws 2 locking, size 14 synergy, 40 mm dual mobility liner with the +0 22 mm head Applied: drain(s) Estimated Blood Loss (mL): 250 Blood products transfused: none Status at Discharge Cognitive/behavioral status at discharge: oriented Functional status at discharge: uses cane/walker Overall status at discharge: patient is progressing back to baseline Exam Vital Signs (past 8 hours): Oxygen Delivery Method Room Air Oxygen Flow Rate 0 Narrative Exam Narrative: 71-year-old female, resting comfortably in bed, no acute distress. Dressing demonstrates some scant dry serosanguineous drainage. No surrounding erythema or blistering or other adhesive reactions. Bilateral lower extremities: Motor function is grossly intact sensation is grossly intact to light touch, calves are soft and nontender to palpation. Objective Labs Result Diagrams: 07/29/21 04:43 [facility] Medical History Acute right hip pain Bilateral bunions Breast cancer Breast cancer of lower-inner quadrant of right female breast Breast cancer, right breast Cervical somatic dysfunction Chronic low back pain Chronic pain of both knees Chronic pain of right knee Family history of breast cancer in mother Flat feet, bilateral History of antineoplastic chemotherapy History of malignant neoplasm of ovary in adulthood HTN (hypertension) Hyperglycemia Hyperlipidemia Iliotibial band syndrome, right leg Lumbar region somatic dysfunction Neck stiffness Numbness and tingling in both hands Obesity 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 Ovarian carcinoma (~2005) Pain in lateral portion of right knee Pelvic somatic dysfunction Port-A-Cath in place Right knee pain Sacral region somatic dysfunction Segmental and somatic dysfunction of abdomen and other regions Somatic dysfunction of lower extremity Thoracic region somatic dysfunction Transaminitis Surgical History History of colonoscopy History of incisional hernia repair History of lumpectomy of right breast (05/27/18) History of total abdominal hysterectomy and bilateral salpingo-oophorectomy Family History Father Hypertension Mother Breast cancer Social History marital status: household members: spouse Smoking Status: Never smoker alcohol intake: current substance use type: does not use Discharge Assessment & Plan Assessment and Plan Assessment: Stable status post right total hip arthroplasty Plan of Treatment: -mobilize with PT. Weightbearing as tolerated front wheel walker. Maintain posterior hip precautions x6 weeks -dressing in skin look good. Checking with Dr. Etienne if she would like to leave it in place, or change. Ideally we can leave it in place. -continue with current pain regimen and DVT prophylaxis -DC home today when cleared by PT Discharge Plan Discharge Plan Patient Disposition: Home Discharge orders & Medications Prescriptions: New polyethylene glycol 3350 17 gram Powder In Packet 17 gm PO DAILY PRN (Reason: Constipation) Qty: 30 0RF aspirin 81 mg Tablet,Delayed Release (Dr/Ec) 81 mg PO BID Qty: 60 0RF oxycodone 10 mg Tablet 10 mg PO Q3HR PRN (Reason: Pain, Severe (7-10)) Qty: 60 0RF Continued cholecalciferol (vitamin D3) [Vitamin D3] 25 mcg (1,000 unit) Tablet 1,000 unit PO DAILY Qty: 0 0RF amlodipine 10 mg tablet 10 mg PO DAILY Qty: 90 3RF valsartan 320 mg tablet 320 mg PO DAILY Qty: 90 3RF hydrochlorothiazide 25 mg tablet 25 mg PO DAILY Qty: 90 3RF metoprolol tartrate 50 mg tablet See Rx Instructions .ROUTE .COMPLEX Qty: 90 3RF Dose Instruction: Take one tablet by mouth one time daily Rx Instructions: Take one tablet by mouth one time daily multivitamin [Multiple Vitamins] Tablet 1 tab PO DAILY 0RF Immune Support Complex 75 mg Tablet 1 cap PO DAILY 0RF Artichoke Extract 450 mg PO TID 0RF omega 1-gff-xdi-fish oil [Fish Oil] 300-1,000 mg Capsule 1 cap PO DAILY 0RF olive leaf extract 250 mg Capsule 500 mg PO TID 0RF Glucosamine Chondroitin 550-30-1 mg Capsule 1 cap PO DAILY 0RF Berberine 1 tab DAILY 0RF [place] Mushroom 1 tab BID 0RF acetaminophen [Tylenol] 325 mg Tablet 650 mg PO Q6H PRN (Reason: Pain (Scale Score 4-6)) 0RF ibuprofen 200 mg Tablet 400 mg PO Q6H PRN (Reason: Pain (Scale Score 4-6)) 0RF letrozole 2.5 mg Tablet 2.5 mg PO DAILY Qty: 90 3RF Discontinued meloxicam 15 mg tablet 15 mg PO DAILY Qty: 90 1RF Follow up/Referrals: Valeria Purvis ARNP [Primary Care Provider] - Selma Etienne MD [Physician] - (2 weeks) Diet/Activity/Treatments Diet: Diet as Tolerated Activity: Weight-bearing as tolerated, posterior hip precautions Cold/Heat Therapy: Ice to hip as needed Skin/Wound/Dressing Care Report to your healthcare provider any signs of infection, such as:: chills, fever, increased pain, unusual drainage and unusual redness Dressing: Keep dressing clean and dry Visit Report/Discharge Packet Instructions: DI for Hip Replacement Stand Alone Forms: Surgery Discharge Discharge Data Primary Care Provider: Valeria Puvris Attending Provider: Selma Etienne Quality VTE Deep Vein Thrombosis/Pulmonary Embolism Present on Admission: No
--- NOTE | 2021-07-31 08:17 | CM.DPNOTE ---
DCP Discharge Home w/ HH Per Ortho PA, pt remains medically stable to d/c home today and agreeable with HH. SW attempted to meet with pt but she was sleeping soundly with washcloth over her eyes. Per RN, pt was just up recently to bathroom in room and independent and no concerns with d/c today. DERICK provided [facility]anna brochure to RN to provide to pt once she is awake. DERICK called [facility] with update on d/c to home today and faxed d/c summary via [employer]. F2F and orders previously faxed yesterday. Plan: Patient to d/c home via spouse today and new Joanna to open pt to service and no further SW needs at this time. Geovanna Real MSW
[2021-07-31 09:00] VITALS: BP 170/70; PULSE 76; RESP 18; TEMP 37.6; O2SAT 98
[2021-07-31] MEDS: ACETAMINOPHEN 325 MG TABLET 650 MG PO ×2 (09:20→14:20)
[2021-07-31] MEDS: CHOLECALCIFEROL (VITAMIN D3) 1,000 UNIT TABLET 1000 UNIT PO (09:22)
[2021-07-31] MEDS: ASPIRIN EC 81 MG TABLET PO (09:22)
[2021-07-31] MEDS: DOCUSATE 100 MG CAPSULE PO (09:22)
[2021-07-31] MEDS: MULTIVITAMIN 1 TABLET 1 TAB PO (09:22)
[2021-07-31] MEDS: FISH OIL 1,000 MG CAPSULE 1000 MG PO (09:22)
[2021-07-31] MEDS: LETROZOLE 2.5 MG TABLET PO (09:23)
[2021-07-31] MEDS: METOPROLOL IR 50 MG TABLET PO (09:23)
--- NOTE | 2021-07-31 10:05 | PT.IPTN ---
Current Diagnoses Unilateral primary osteoarthritis, right hip (07/29/21) Surgery Performed Operation Date: 07/28/21 12:45 Actual Procedures p Total Hip Arthroplasty(Right) - Selma Etienne MD Physical Therapy Treatment Note M2 PT-IP Current Condition Start: 07/29/21 12:45 Freq: NEEDED Status: Active Protocol: Document 07/29/21 09:10 AB (Rec: 07/29/21 13:03 AB [id number]) Physical Therapy Current Condition Current Condition Evaluation Date 07/29/21 Treatment Diagnosis s/p R JOHN posterior approach; difficulty in walking Onset Date 07/28/21 M3 PT-IP Subjective Start: 07/29/21 12:45 Freq: NEEDED Status: Active Protocol: Document 07/31/21 10:05 AW (Rec: 07/31/21 11:38 AW [id number]) Subjective Physical Therapy Visit Type Type Treatment Note Visit Start Time 09:22 Visit Stop Time 10:05 Total Visit Minutes 43 Physical Therapy Visit Comments Patient Comments Pt is willing to participate with PT Therapy Pain Assessment Pain When Pain Assessed At Rest Pain Present Pain Present Pain Reported Location Right Hip Intensity 4 Pain Management Techniques Apply Cold,Timing of Activity with Medications M4 PT-IP Mobility and Gait Start: 07/29/21 12:45 Freq: NEEDED Status: Active Protocol: Document 07/31/21 10:05 AW (Rec: 07/31/21 11:38 AW [id number]) PT-Transfer Assessment Sit to and From Stand Sit to and from Stand Contact Guard Assistance,Use of Upper Extremities Equipment Transfer Assistive Device Gait Belt,Front Wheeled Walker Orthotic/Prosthetic Devices or Brace: No Transfers Transfer Destination Chair,Wheelchair Transfer Technique ambulated with FWW Transfer Ability Level of Assist Contact Guard Assistance,Use of Upper Extremities Comments Mobility Comments Pt was sitting up in the chair as PT arrived. BP 170/70 HR 77 and pt was just taking her HTN meds. She stood from the chair CGA and requested to use the commode. She walked to the bathroom and stated preference to use BSC instead of toilet so she could use the commode arms. Pt has RTS with handles at home. She transferred CGA, voided, and completed pericare SBA. She required assist to don and pull up briefs but had good awareness of precautions. She stood CGA and ambulated with FWW SBA. No observed LOB. Pt walked 30 feet and then transferred to w/c to conserve energy for stair training. At the stairs, pt improved to using L rail ascending with R MOVING CONSULTANT. She sequenced independently without need for cues. On descent, she used B rails. She ambulated with FWW 50 feet and then requested to use w/c for energy conservation. Pt returned to the room and transferred to the chair CGA. BP after activity was 166/81 HR 74. Pt was left with call light and tray table in reach. Gait Assessment Gait Gait Assistance Required: Standby Assistance,Contact Guard Assist Distance (Feet) 60 Able to Maintain Weight Bearing Status Yes During Gait Assistive Devices Assistive Device Gait Belt,Front Wheeled Walker Orthotic/Prosthetic Devices or Brace: No Gait Deviations General Gait Pattern Antalgic,Decreased Stride Length,Decreased Feet Clearance,Flexed Trunk Factors Limiting Gait Function Factors Limiting Gait Function Decreased Activity Tolerance, Decreased Strength,Limited Range of Motion,Pain,Poor Balance Comments Gait Comments Pt able to extend her hips slightly more today. Practiced standing hip extension with FWW for support as pre-gait activity. Stair Climbing Assessment Evaluation Level of Assist On Stairs Minimal Assistance,1 Person Assistance Devices Stair Climbing Assistive Devices Left Railing,Right Railing Technique/Endurance Stair Climbing Direction Ascend and Descend Stair Climbing Technique Step to Step Number of Steps Climbed 3 Stair Climbing Set # Repetitions (reps) 1 Comments Stair Climbing Comments Pt used L rail and R MOVING CONSULTANT/min A x 1 to ascend. B rails to descend. PT-Balance Assessment Sitting Balance and Reactions Static Sitting Balance Ability Good Dynamic Sitting Balance Ability Good Standing Balance and Reactions Static Standing Balance Ability Fair Dynamic Standing Balance Ability Fair Device Used FWW M5 PT-IP Objective Assessments Start: 07/29/21 12:45 Freq: NEEDED Status: Active Protocol: Document 07/29/21 09:10 AB (Rec: 07/29/21 13:03 AB [email or web address]) Orientation Orientation/Cognition Level of Alertness Alert Orientation Name,Place,Situation Language Function Ability No Deficits Noted Safety Awareness Understands Safety Issues Memory Description Short Term Impaired Gross Range of Motion Lower Extremity ROM Assessment Within Functional Limits Strength Lower Extremity Strength Assessment Right Impaired Hip 3-/5 Knee 4-/5 Coordination Assessment Gross Coordination Gross Coordination WNL Sensation Assessment Sensation Gross Sensation WNL Muscle Tone Muscle Tone WNL Yes M6 PT-IP Treatment Start: 07/29/21 12:45 Freq: NEEDED Status: Active Protocol: Document 07/31/21 10:05 AW (Rec: 07/31/21 11:38 AW [id number]) Physical Therapy Treatment Exercises Exercises Ankle Pumps,Gluteal Sets,Quad Sets,Heel Slides,Supine Hip Abduction Education Education Provided Precautions,Safety Other Treatments Other Treatment Performed Reviewed exercises and answered questions but did not perform. Educated pt on frequency and intensity. M7 PT-IP Assessment and Plan Start: 07/29/21 12:45 Freq: NEEDED Status: Active Protocol: Document 07/31/21 10:05 AW (Rec: 07/31/21 11:38 AW [id number]) PT Summary Assessment and Plan Potential Rehabilitation Potential Good Summary Impairments Pain,ROM,Strength,Balance, Coordination,Sensation,Tone, Cognition,Bed Mobility, Transfers,Gait,Activity Tolerance Progress Towards Goals Progressing Toward Goals Assessment Summary Pt able to ambulate 60 feel with FWW SBA and completed another set of stairs min assist. She has good attention to precautions. Pt states she will have friends and caregivers at home while spouse is at work. She will not be alone for more than a few hours at a time and understands recommendation to have assist for all mobility at this time. Pt will be safe to discharge home with assist and home health therapy once medically stable. Goals Bed Mobility Goal Independent Transfer Goal Independent Gait Goal Independent,Front Wheel Walker Gait Distance 150 Other Goals ambulation using 4WW SBA 200 ft up/down 5 platform steps using FWW + 2 steps using L rail ascending CGA Days to Meet Goals 10 Frequency of Treatment Frequency Of Treatment Twice a Day Treatment Plan Physical Therapy Treatment Plan Bed Mobility Training,Transfer Training,Gait Training, Therapeutic Exercise,Balance Retraining,Post Op Education, Discharge Planning,Hot or Cold Pack,Neuromuscular Re-ed, Coordination Retraining,Manual Therapy Other Recommendations and Next Treatment when spouse available, review Focus stairs (platform and with rail ) and answer any remaining questions about mobility at home Precautions Posterior Hip Precautions No Hip Flexion > 90 degrees,No Hip Internal Rotation,No Hip Adduction Weight Bearing Status Weight Bearing Status Weight Bear as Tolerated Allowed Weight Bearing Amount (enter % RLE WBAT or #) (%) Recommendations To Nursing Amount of Assist Needed 1 Person Assist Discharge Recommendations PT Discharge Recommendations Home with Assistance,Home Health Transportation Needs at Discharge Private Vehicle
--- NOTE | 2021-07-31 14:18 | PT.IPTN ---
Current Diagnoses Unilateral primary osteoarthritis, right hip (07/29/21) Surgery Performed Operation Date: 07/28/21 12:45 Actual Procedures p Total Hip Arthroplasty(Right) - Selma Etienne MD Physical Therapy Treatment Note M2 PT-IP Current Condition Start: 07/29/21 12:45 Freq: NEEDED Status: Active Protocol: Document 07/29/21 09:10 AB (Rec: 07/29/21 13:03 AB [id number]) Physical Therapy Current Condition Current Condition Evaluation Date 07/29/21 Treatment Diagnosis s/p R JOHN posterior approach; difficulty in walking Onset Date 07/28/21 M3 PT-IP Subjective Start: 07/29/21 12:45 Freq: NEEDED Status: Active Protocol: Document 07/31/21 14:18 AW (Rec: 07/31/21 14:24 AW [id number]) Subjective Physical Therapy Visit Type Type Treatment Note Visit Start Time 14:00 Visit Stop Time 14:16 Total Visit Minutes 16 Number of 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 M4 PT-IP Mobility and Gait Start: 07/29/21 12:45 Freq: NEEDED Status: Active Protocol: Document 07/31/21 10:05 AW (Rec: 07/31/21 11:38 AW [id number]) PT-Transfer Assessment Sit to and From Stand Sit to and from Stand Contact Guard Assistance,Use of Upper Extremities Equipment Transfer Assistive Device Gait Belt,Front Wheeled Walker Orthotic/Prosthetic Devices or Brace: No Transfers Transfer Destination Chair,Wheelchair Transfer Technique ambulated with FWW Transfer Ability Level of Assist Contact Guard Assistance,Use of Upper Extremities Comments Mobility Comments Pt was sitting up in the chair as PT arrived. BP 170/70 HR 77 and pt was just taking her HTN meds. She stood from the chair CGA and requested to use the commode. She walked to the bathroom and stated preference to use BSC instead of toilet so she could use the commode arms. Pt has RTS with handles at home. She transferred CGA, voided, and completed pericare SBA. She required assist to don and pull up briefs but had good awareness of precautions. She stood CGA and ambulated with FWW SBA. No observed LOB. Pt walked 30 feet and then transferred to w/c to conserve energy for stair training. At the stairs, pt improved to using L rail ascending with R VC++ DEVELOPER. She sequenced independently without need for cues. On descent, she used B rails. She ambulated with FWW 50 feet and then requested to use w/c for energy conservation. Pt returned to the room and transferred to the chair CGA. BP after activity was 166/81 HR 74. Pt was left with call light and tray table in reach. Gait Assessment Gait Gait Assistance Required: Standby Assistance,Contact Guard Assist Distance (Feet) 60 Able to Maintain Weight Bearing Status Yes During Gait Assistive Devices Assistive Device Gait Belt,Front Wheeled Walker Orthotic/Prosthetic Devices or Brace: No Gait Deviations General Gait Pattern Antalgic,Decreased Stride Length,Decreased Feet Clearance,Flexed Trunk Factors Limiting Gait Function Factors Limiting Gait Function Decreased Activity Tolerance, Decreased Strength,Limited Range of Motion,Pain,Poor Balance Comments Gait Comments Pt able to extend her hips slightly more today. Practiced standing hip extension with FWW for support as pre-gait activity. Stair Climbing Assessment Evaluation Level of Assist On Stairs Minimal Assistance,1 Person Assistance Devices Stair Climbing Assistive Devices Left Railing,Right Railing Technique/Endurance Stair Climbing Direction Ascend and Descend Stair Climbing Technique Step to Step Number of Steps Climbed 3 Stair Climbing Set # Repetitions (reps) 1 Comments Stair Climbing Comments Pt used L rail and R VC++ DEVELOPER/min A x 1 to ascend. B rails to descend. PT-Balance Assessment Sitting Balance and Reactions Static Sitting Balance Ability Good Dynamic Sitting Balance Ability Good Standing Balance and Reactions Static Standing Balance Ability Fair Dynamic Standing Balance Ability Fair Device Used FWW M5 PT-IP Objective Assessments Start: 07/29/21 12:45 Freq: NEEDED Status: Active Protocol: Document 07/29/21 09:10 AB (Rec: 07/29/21 13:03 AB [id number]) Orientation Orientation/Cognition Level of Alertness Alert Orientation Name,Place,Situation Language Function Ability No Deficits Noted Safety Awareness Understands Safety Issues Memory Description Short Term Impaired Gross Range of Motion Lower Extremity ROM Assessment Within Functional Limits Strength Lower Extremity Strength Assessment Right Impaired Hip 3-/5 Knee 4-/5 Coordination Assessment Gross Coordination Gross Coordination WNL Sensation Assessment Sensation Gross Sensation WNL Muscle Tone Muscle Tone WNL Yes M6 PT-IP Treatment Start: 07/29/21 12:45 Freq: NEEDED Status: Active Protocol: Document 07/31/21 14:18 AW (Rec: 07/31/21 14:24 AW [id number]) Physical Therapy Treatment Education Education Provided Precautions,Weight Bearing Status,Post-Op Packet,Safety Other Treatments Other Treatment Performed Answered questions from pt and spouse regarding car transfers, getting in and out of the house, recommendations for level of activity, and exercises to do while waiting for HH therapy to start. M7 PT-IP Assessment and Plan Start: 07/29/21 12:45 Freq: NEEDED Status: Active Protocol: Document 07/31/21 14:18 AW (Rec: 07/31/21 14:24 AW [id number]) PT Summary Assessment and Plan Summary Impairments Pain,ROM,Strength,Balance, Coordination,Sensation,Tone, Cognition,Bed Mobility, Transfers,Gait,Activity Tolerance Progress Towards Goals Progressing Toward Goals Assessment Summary Pt was preparing for discharge this visit. She has done all necessary stair training and spouse has completed caregiver training. Spent time answering all questions about mobility at home, car transfers, cryotherapy, and home exercise. Spouse has acquired a wheelchair for home use and set it up just inside the front entrance at home. Spouse has arranged for private caregivers as well as friends to assist at home while he is at work. Pt is ready to discharge home with assist and HH therapy. Goals Bed Mobility Goal Independent Transfer Goal Independent Gait Goal Independent,Front Wheel Walker Gait Distance 150 Other Goals ambulation using 4WW SBA 200 ft up/down 5 platform steps using FWW + 2 steps using L rail ascending CGA Days to Meet Goals 10 Frequency of Treatment Frequency Of Treatment Twice a Day Treatment Plan Physical Therapy Treatment Plan Bed Mobility Training,Transfer Training,Gait Training, Therapeutic Exercise,Balance Retraining,Post Op Education, Discharge Planning,Hot or Cold Pack,Neuromuscular Re-ed, Coordination Retraining,Manual Therapy Precautions Posterior Hip Precautions No Hip Flexion > 90 degrees,No Hip Internal Rotation,No Hip Adduction Weight Bearing Status Weight Bearing Status Weight Bear as Tolerated Allowed Weight Bearing Amount (enter % RLE WBAT or #) (%) Recommendations To Nursing Amount of Assist Needed 1 Person Assist Discharge Recommendations PT Discharge Recommendations Home with Assistance,Home Health Transportation Needs at Discharge Private Vehicle
--- NOTE | 2021-07-31 16:46 | PC.NURSE ---
late entry for 1440 discharge. Discharge order received, and patient cleared by physical therapy for discharge to home with home health and her . RYAN dressing intact. IV removed intact. Discharge instructions and home care handouts reviewed with patient and her . They state understanding and have no further questions or concerns at this time. Patient states she will have follow up with ortho. Patient instructed to call her surgeon with questions or concern. Instructed to seek care for any signs of infection. Escorted out via wheelchair by OIL AGENT and RN with all her belongings to discharge home with her .
== END 2021-07-31 14:40 | disposition home or self-care (01) ==
LOC: OR 07-31 07:09 → AC 07-31 07:09
PROVIDERS: Admitting Provider Orthopaedic Surgery; PCP Nurse Practitioner; Referring Provider Orthopaedic Surgery; Visit Provider Orthopaedic Surgery
PROC: 0SR90JZ Replacement of Right Hip Joint with Synthetic Substitute, Open Approach (ICD-10-PCS; CPT 27130; principal; 2021-07-28 12:45)
DX: M16.11 Unilateral primary osteoarthritis, right hip (principal); I10 Essential (primary) hypertension; E78.5 Hyperlipidemia, unspecified; M87.051 Idiopathic aseptic necrosis of right femur
CPT/HCPCS: 27130; 36415; 72170; 73502; 85014; 85018; 97116; 97162; 97530; 97535; C1776; G0378; A9270; C9290; J0171; J0330; J0690; J2250; J2274; J2405; J2704; J3010

== ENCOUNTER 2021-08-02 00:39 | Emergency (ER) | payer MEDICARE, OTHER, SELFPAY ==
[2021-07-28 17:31] VITALS: BMI 40.7
[2021-08-02 00:42] VITALS: BP 174/75; PULSE 77; RESP 16; TEMP 36.9; O2SAT 99; BMI 40.7
--- NOTE | 2021-08-02 00:44 | DI.RAD.S_ITS ---
PROCEDURE: XR ABDOMEN MIN 2V INDICATIONS: constipation x 5 days. s/p hip surgery TECHNIQUE: 2 views of the abdomen were acquired. COMPARISON: None. FINDINGS: Surgical changes and devices: None. Bowel: No pneumoperitoneum. The bowel gas pattern is normal. Moderate amount of stool in rectum. Soft tissues: No masses; visualized solid organ contours appear normal in size. No suspicious abdominal calcifications. Bones: No suspicious bony abnormalities. Degenerative changes in lumbar spine. Right hip arthroplasty. IMPRESSION: Moderate amount of stool in rectum. Dictated by: Marika Troy M.D. on 08/02/2021 at 1:27 Approved by: Marika Troy M.D. on 08/02/2021 at 1:28
--- NOTE | 2021-08-02 00:45 | ED.ABDPAIN ---
HPI - Abdominal Pain General Chief Complaint: Abdominal Pain Stated Complaint: constipation Time Seen by Provider: 08/02/21 00:44 Source: patient, EMS and old records reviewed Mode of arrival: EMS Limitations: no limitations History of Present Illness HPI narrative: This is a 71-year-old comes emergency department with concern for constipation. Patient states she had hip surgery and was discharged on the 31 of July. She states her last bowel movement was . She has been passing any gas or ?air biscuits? but states she has not had a stool or bowel movement. She feels like there is stool but not close to the rectal vault but higher up. She denies fevers or chills. She has had increasing abdominal distension. She does have some lower abdominal discomfort which worsened this evening. She had 1 episode of vomiting after taking out her retainer which she states is normal. She had has not had any other nausea or vomiting. She denies chest pain or shortness of breath. She states her pain is real controlled with oxycodone. She states she has been ambulating. She has assistive device on her chest for to help her move about. She has not had any urinary symptoms. She states she is on medication for hypertension. She has had prior abdominal surgery for ovarian cancer remotely with total hysterectomy as well as a hernia and repair afterwards for this. She states she takes an aspirin daily. She has been taking oxycodone for pain. She states she has not been drinking much in the way of fluids. She has tried some stool softener but has not had any laxatives. Related Data Home Medications Medication Instructions Recorded Confirmed cholecalciferol (vitamin D3) 25 1,000 unit PO DAILY #0 10/24/10 07/28/21 mcg (1,000 unit) tablet (Vitamin D3) C-Zn-K.ginseng-hetal hips-[id number] 75 1 cap PO DAILY 06/23/18 07/28/21 mg tablet (Immune Support Complex) multivitamin (Multiple Vitamins) 1 tab PO DAILY 06/23/18 07/28/21 Artichoke Extract 450 mg PO TID 01/04/20 07/28/21 Berberine 1 tab DAILY 01/04/20 07/28/21 [place] Tail Mushroom 1 tab BID 01/04/20 07/28/21 glucosamine sulf dipot 1 cap PO DAILY 01/04/20 07/28/21 chlr,msm,chond 550 mg-C 30 mg-shonna 1 mg capsule (Glucosamine Chondroitin) olive leaf extract 250 mg capsule 500 mg PO TID 01/04/20 07/28/21 omega 7-aao-hdn-fish oil 300 1 cap PO DAILY 01/04/20 07/28/21 mg-1,000 mg capsule (Fish Oil) acetaminophen 325 mg tablet 650 mg PO Q6H PRN 02/02/21 07/28/21 (Tylenol) ibuprofen 200 mg tablet 400 mg PO Q6H PRN 02/02/21 07/28/21 Previous Rx's Medication Instructions Recorded amlodipine 10 mg tablet 10 mg PO DAILY #90 tab 08/15/20 hydrochlorothiazide 25 mg tablet 25 mg PO DAILY #90 tab 08/15/20 valsartan 320 mg tablet 320 mg PO DAILY #90 tab 08/15/20 metoprolol tartrate 50 mg tablet See Rx Instructions .ROUTE 06/02/21 .COMPLEX #90 tab letrozole 2.5 mg tablet 2.5 mg PO DAILY #90 tab 07/25/21 aspirin 81 mg tablet,delayed 81 mg PO BID #60 tab 07/29/21 release oxycodone 10 mg tablet 10 mg PO Q3HR PRN #60 tab 07/29/21 polyethylene glycol 3350 17 gram 17 gm PO DAILY PRN #30 ea 07/29/21 oral powder packet Allergies Allergy/AdvReac Type Severity Reaction Status Date / Time adhesive [ADHESIVE] Allergy Unknown Verified 07/28/21 11:17 triprolidine [TRIPROLIDINE] Allergy Unknown UNKNOWN Verified 07/28/21 11:17 atorvastatin AdvReac Intermediate Balance Verified 07/28/21 11:17 issues with fall. ezetimibe [EZETIMIBE] AdvReac Unknown (ZETIA) Verified 07/28/21 11:17 MUSCLE CRAMPS, WEAK Review of Systems Review of Systems ROS Unobtainable: All systems reviewed & are unremarkable except as noted in HPI and below Patient History Medical History Acute right hip pain Bilateral bunions Breast cancer Breast cancer of lower-inner quadrant of right female breast Breast cancer, right breast Cervical somatic dysfunction Chronic low back pain Chronic pain of both knees Chronic pain of right knee Family history of breast cancer in mother Flat feet, bilateral History of antineoplastic chemotherapy History of malignant neoplasm of ovary in adulthood HTN (hypertension) Hyperglycemia Hyperlipidemia Iliotibial band syndrome, right leg Lumbar region somatic dysfunction Neck stiffness Numbness and tingling in both hands Obesity 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 Ovarian carcinoma (~2005) Pain in lateral portion of right knee Pelvic somatic dysfunction Port-A-Cath in place Right knee pain Sacral region somatic dysfunction Segmental and somatic dysfunction of abdomen and other regions Somatic dysfunction of lower extremity Thoracic region somatic dysfunction Transaminitis Surgical History History of colonoscopy History of incisional hernia repair History of lumpectomy of right breast (05/27/18) History of total abdominal hysterectomy and bilateral salpingo-oophorectomy Family History Father Hypertension Mother Breast cancer Social History marital status: household members: spouse Smoking Status: Never smoker alcohol intake: current substance use type: does not use Smoking Status: Never smoker alcohol intake frequency: 0-2 drinks per day Substance Use Type: does not use Exam Narrative Exam Narrative: GENERAL: Alert and oriented x three, elderly female in mild distress. HEENT: Head normocephalic, atraumatic, EOMI, pupils reactive, face symmetric, moist mucous membranes NECK: Supple, full range of motion CARDIOVASCULAR: Regular rate and rhythm without murmurs, rubs or gallops. RESPIRATORY: Breath sounds equal bilaterally, no wheezes rales or rhonchi. ABDOMEN: Soft, nontender, slightly distended. Patient has healed incisions on her midline abdomen. No hernia appreciated. Bowel sounds all 4 quadrants. No guarding or rebound, rigidity, no mass : No CVA tenderness EXTREMITIES: Patient has slightly decreased movement at the right hip. Incision appears clean dry and has device attached. There is no warmth, erythema or drainage noted. No clubbing. Neurovascularly intact NEUROLOGICAL: Cranial nerves II through XII grossly intact. Moving all extremities SKIN: Warm, dry, no petechiae, no rashes or lesions otherwise noted. Initial Vital Signs Initial Vital Signs: Vital Signs Temperature 98.5 F 08/02/21 00:42 Pulse Rate 77 08/02/21 00:42 Respiratory Rate 16 08/02/21 00:42 Blood Pressure 174/75 H 08/02/21 00:42 Pulse Oximetry 99 08/02/21 00:42 Course Orders Ordered: ED Orders 08/02/21 00:44 XR abdomen min 2V Stat Discontinued Medications Magnesium Citrate (Magnesium Citrate 300 Ml Solution) 300 ml PO NOW ONE Stop: 08/02/21 02:54 Last Admin: 08/02/21 03:08 Dose: 300 ml Documented by: DENIA Mineral Oil (Mineral Oil 1 Each Enema) 1 each SD NOW ONE Stop: 08/02/21 01:47 Last Admin: 08/02/21 02:25 Dose: 1 each Documented by: DENIA Reevaluation(s) Reevaluation #1: Discussed patients findings. She would like to try an enema although she feels stool is higher up we discussed if unsuccessful then would try mag citrate, increasing oral fluids and adjusting stool softeners/laxatives. Time: 01:45 Reevaluation #2: Patient had minimal stool output. We discussed and planned to try topped with Mag citrate, increasing fluids and stool softeners. Discussed patient has stopped her narcotic pain medication last night. She is only taking Tylenol and Advil at this time. We discussed that continuing with movement and ambulation will also help stimulate good movement she is able to tolerate. Time: 02:53 Vital Signs Vital signs: Vital Signs - 8 hr 08/02/21 00:42 Temperature 98.5 F Pulse Rate 77 Respiratory Rate 16 Blood Pressure 174/75 H Pulse Oximetry 99 MDM - Abdominal Pain Imaging Data Abdominal x-ray: Radiologist's Impression: [address] [address] XRay Report Signed Patient: Elis Sims MR#: [id number] : 1950 Acct:[id number] Age/Sex: 71 / F Date of Service: 08/02/21 Loc: ED Accession Number: [id number] ?? Procedure: XR abdomen min 2V Ordering Provider: Giuliana Lozano D.O. PROCEDURE:? XR ABDOMEN MIN 2V ? INDICATIONS:? constipation x 5 days.? s/p hip surgery ? TECHNIQUE:? 2 views of the abdomen were acquired.? ? COMPARISON:? None. ? FINDINGS:? Surgical changes and devices:? None.? ? Bowel:? No pneumoperitoneum.? The bowel gas pattern is normal.? Moderate amount of stool in rectum. ? Soft tissues:? No masses; visualized solid organ contours appear normal in size.? No suspicious abdominal calcifications.? ? Bones:? No suspicious bony abnormalities.? Degenerative changes in lumbar spine.? Right hip arthroplasty. ? IMPRESSION:? Moderate amount of stool in rectum. ? ? Dictated by: Marika Troy M.D. on 08/02/2021 at 1:27 ? ? Approved by: Marika Troy M.D. on 08/02/2021 at 1:28?? MDM Narrative Medical decision making narrative: This is a 71-year-old female comes emergency department with complaint of constipation. Likely narcotic induced after her hip surgery. Patient has abdominal x-ray which does not show an obstructive pattern. Patient feels like she does not have much stool at the rectal vault. Discussed oral hydration, she has stopped her narcotics the last 12-24 hours continuing to ambulate to stimulate bowel movements. She would like to attempt an enema here in the department we did do this but had minimal output. Patient is comfortable returning home with plan for Mag citrate, adjusting and increasing her MiraLax adding Senokot and above recommendations. Return precautions discussed. All questions answered. Discharge Plan Departure Patient Disposition: Home Clinical Impression: Constipation Instructions: DI for Constipation Activity Restrictions/Additional Instructions: Follow up for recheck if you have not had a bowel movement in 24 hours. Take magnesium citrate, drink 1/2 bottle wait 4-5 hours if you have not had a bowel movement may drink the 2nd half of the bottle. If you are able to decrease your narcotic usage this will allow your bowels to start moving more regularly. Ambulating and walking will also help stimulate bowel movements. Continue with MiraLax 1-2 times daily. Make sure you are drinking plenty of water as these medications are not as effective if you are not well hydrated. You may take senokot 1 tablet twice daily as needed. Return for fevers, vomiting, new or worsening abdominal pain, if you are not passing gas and not having bowel movements or other new or concerning symptoms. Prescriptions: No Action cholecalciferol (vitamin D3) [Vitamin D3] 25 mcg (1,000 unit) Tablet 1,000 unit PO DAILY Qty: 0 0RF amlodipine 10 mg tablet 10 mg PO DAILY Qty: 90 3RF valsartan 320 mg tablet 320 mg PO DAILY Qty: 90 3RF hydrochlorothiazide 25 mg tablet 25 mg PO DAILY Qty: 90 3RF metoprolol tartrate 50 mg tablet See Rx Instructions .ROUTE .COMPLEX Qty: 90 3RF Dose Instruction: Take one tablet by mouth one time daily Rx Instructions: Take one tablet by mouth one time daily polyethylene glycol 3350 17 gram Powder In Packet 17 gm PO DAILY PRN (Reason: Constipation) Qty: 30 0RF aspirin 81 mg Tablet,Delayed Release (Dr/Ec) 81 mg PO BID Qty: 60 0RF oxycodone 10 mg Tablet 10 mg PO Q3HR PRN (Reason: Pain, Severe (7-10)) Qty: 60 0RF multivitamin [Multiple Vitamins] Tablet 1 tab PO DAILY 0RF Immune Support Complex 75 mg Tablet 1 cap PO DAILY 0RF Artichoke Extract 450 mg PO TID 0RF omega 8-srj-fbm-fish oil [Fish Oil] 300-1,000 mg Capsule 1 cap PO DAILY 0RF olive leaf extract 250 mg Capsule 500 mg PO TID 0RF Glucosamine Chondroitin 550-30-1 mg Capsule 1 cap PO DAILY 0RF Berberine 1 tab DAILY 0RF [place] Tail Mushroom 1 tab BID 0RF acetaminophen [Tylenol] 325 mg Tablet 650 mg PO Q6H PRN (Reason: Pain (Scale Score 4-6)) 0RF ibuprofen 200 mg Tablet 400 mg PO Q6H PRN (Reason: Pain (Scale Score 4-6)) 0RF letrozole 2.5 mg Tablet 2.5 mg PO DAILY Qty: 90 3RF Referrals: Valeria Purvis ARNP [Primary Care Provider] -
[2021-08-02] MEDS: MINERAL OIL 1 EACH ENEMA PR (02:25)
[2021-08-02] MEDS: MAGNESIUM CITRATE 300 ML SOLUTION PO (03:08)
== END 2021-08-02 03:30 | disposition home or self-care (01) ==
PROVIDERS: Emergency Provider Emergency Medicine; PCP Nurse Practitioner
DX: K59.00 Constipation, unspecified (principal)
CPT/HCPCS: 74019; 99282; 99283

== ENCOUNTER → 2021-10-25 14:37 | Outpatient (CLI) | payer MEDICARE, OTHER, SELFPAY ==
[2021-07-28 17:31] VITALS: BMI 40.7
[2021-10-25 15:47] LABS: HEMOLYSIS < 15 (0-50); Iron 95 ug/dL (37-170)
[2021-10-25 15:53] LABS: Alanine Aminotransferase 17 IU/L (<35); Albumin 4.1 g/dL (3.5-5.0); Albumin Globulin Ratio 1.4 (1.0-2.8); Alkaline Phosphatase 74 U/L (38-126); Aspartate Aminotransferase 24 IU/L (14-36); BUN Creatinine Ratio 36.5 (6-22); Bilirubin Total 0.6 mg/dL (0.2-1.3); Blood Urea Nitrogen 50 mg/dL (7-17); Carbon Dioxide 21 mmol/L (22-32); Chloride 110 mmol/L (98-107); Estimated Glomerular Filt Rate 41 mL/min (>60); Glucose 121 mg/dL (80-110); HEMOLYSIS < 15 (0-50); Potassium 4.8 mmol/L (3.4-5.1); Sodium 139 mmol/L (137-145); Total Protein 7.1 g/dL (6.3-8.2)
[2021-10-25 15:58] LABS: Percent Iron Saturation 25 % (15-50); Total Iron Binding Capacity 386 ug/dL (265-497); Transferrin 290 mg/dL (206-381)
[2021-10-25 16:00] LABS: Add Manual Diff / Slide Review NO; Basophils Absolute Auto 0 /uL (0-100); Basophils Percent Auto 0.5 % (0-2); Eosinophils Absolute Auto 300 /uL (0-450); Eosinophils Percent Auto 2.9 % (2-4); Hemoglobin 10.7 g/dL (12.0-16.0); Lymphocytes Absolute Auto 1200 /uL (1100-4500); Lymphocytes Percent Auto 11.7 % (25-40); Mean Corpuscular HGB Conc 33.3 % (30-36); Mean Corpuscular Hemoglobin 31.5 PG (26-34); Mean Corpuscular Volume 94.6 fL (80-100); Monocytes Absolute Auto 700 /uL (0-900); Monocytes Percent Auto 7.3 % (3-14); Neutrophils Absolute Auto 7600 /uL (1500-7000); Neutrophils Percent Auto 77.6 % (50-75); Platelet Count 208 X10^3/uL (150-400); Red Blood Cell Count 3.38 X10^6/uL (4.0-5.2); White Blood Cell Count 9.9 X10^3/uL (4.5-11.0)
[2021-10-25 16:28] LABS: Ferritin 32 ng/mL (11-264)
== END ==
PROVIDERS: Family Provider Nurse Practitioner; PCP Nurse Practitioner; Referring Provider Internal Medicine Hematology & Oncology; Visit Provider Internal Medicine Hematology & Oncology
DX: D64.9 Anemia, unspecified (principal); C50.311 Malignant neoplasm of lower-inner quadrant of right female breast
CPT/HCPCS: 36415; 80053; 82728; 83540; 83550; 85025

== ENCOUNTER → 2021-10-31 12:53 | Outpatient (CLI) | payer MEDICARE, OTHER, SELFPAY ==
[2021-07-28 17:31] VITALS: BMI 40.7
--- NOTE | 2021-10-31 12:55 | DI.RAD.S_ITS ---
PROCEDURE: XR CHEST 2V INDICATIONS: Crackles in lungs, suspect CHF TECHNIQUE: 2 views of the chest were acquired. COMPARISON: [facility], , XR CHEST 1V, 05/27/2018, 14:20. FINDINGS: Surgical changes and devices: None. Lungs and pleura: Lungs are clear. No pleural effusions or pneumothorax. Mediastinum: Mediastinal contours are normal. Heart size is normal. Bones and chest wall: No suspicious bony abnormalities. Soft tissues appear unremarkable. IMPRESSION: No acute process. Dictated by: Trevor Fierro M.D. on 10/31/2021 at 14:05 Approved by: Trevor Fierro M.D. on 10/31/2021 at 14:06
[2021-10-31 14:46] LABS: BUN Creatinine Ratio 35.8 (6-22); Blood Urea Nitrogen 43 mg/dL (7-17); Calcium 9.5 mg/dL (8.4-10.2); Carbon Dioxide 22 mmol/L (22-32); Chloride 106 mmol/L (98-107); Estimated Glomerular Filt Rate 48 mL/min (>60); Glucose 120 mg/dL (80-110); HEMOLYSIS < 15 (0-50); Magnesium 1.5 mg/dL (1.6-2.3); Potassium 5.3 mmol/L (3.4-5.1); Sodium 137 mmol/L (137-145)
[2021-10-31 14:54] LABS: NT-proBNP (BNP-Adult 18+) 160 pg/mL (<125)
== END ==
PROVIDERS: Family Provider Nurse Practitioner; PCP Nurse Practitioner; Referring Provider Nurse Practitioner; Visit Provider Nurse Practitioner
DX: R09.89 Other specified symptoms and signs involving the circulatory and respiratory systems (principal); I10 Essential (primary) hypertension; T50.2X5A Adverse effect of carbonic-anhydrase inhibitors, benzothiadiazides and other diuretics, initial encounter; Z79.899 Other long term (current) drug therapy
CPT/HCPCS: 36415; 71046; 80048; 83735; 83880

== ENCOUNTER → 2021-11-28 14:42 | Outpatient (CLI) | payer MEDICARE, OTHER, SELFPAY ==
[2021-07-28 17:31] VITALS: BMI 40.7
[2021-11-28 17:20] LABS: BUN Creatinine Ratio 41.1 (6-22); Blood Urea Nitrogen 60 mg/dL (7-17); Calcium 9.5 mg/dL (8.4-10.2); Carbon Dioxide 24 mmol/L (22-32); Chloride 104 mmol/L (98-107); Estimated Glomerular Filt Rate 38 mL/min (>60); Glucose 110 mg/dL (80-110); HEMOLYSIS < 15 (0-50); Potassium 4.9 mmol/L (3.4-5.1); Sodium 136 mmol/L (137-145)
== END ==
PROVIDERS: Family Provider Nurse Practitioner; PCP Nurse Practitioner; Referring Provider Nurse Practitioner; Visit Provider Nurse Practitioner
DX: I10 Essential (primary) hypertension (principal); R09.89 Other specified symptoms and signs involving the circulatory and respiratory systems
CPT/HCPCS: 36415; 80048; 83735

== ENCOUNTER → 2022-01-08 14:47 | Outpatient (CLI) | payer MEDICARE, OTHER, SELFPAY ==
[2021-07-28 17:31] VITALS: BMI 40.7
--- NOTE | 2022-01-08 14:48 | DI.ECHO.S_ITS ---
[facility] +---------+ : : [address] [place] : : : : [id number] : : : : Phone: [phone] +---------+ Echocardiogram Report + + :Name: ULISES BROWN Study Date: 01/08/2022 Height: 63 in : :[facility] ReadingLocation: Weight: 230 lb : : Gender: Female BSA: 2.1 m2 : :: 1950 Age: 71 yrs BP: 140/70 mmHg: :Reason For Study: ACUTE WORSENING OF LE EDEMA : :Ordering Physician: TALA, : :IVONNE Performed By: Vaishali Franklin : :Referring: IVONNE EDGAR : + + Interpretation Summary Normal left ventricle size with ejection fraction 60-65%. Moderately dilated left atrium. The aortic valve is slightly calcified. Mild mitral annular calcification. Comparison is made with the echocardiogram of 06/19/2019, there has been no significant change. Procedure: A two-dimensional transthoracic echocardiogram with color flow and Doppler was performed. The study quality was technically adequate. Comparison is made with the echocardiogram of 06/19/2019. The patient was in sinus rhythm with heart rates between 52-65 bpm during the exam. Left Ventricle: The left ventricle is normal in size and wall thickness. The ejection fraction is estimated to be 60-65%. There are no focal wall motion abnormalities. Right Ventricle: The right ventricle is normal in size and function. Atria: The left atrium is moderately dilated. Right atrial size is normal. There is no Doppler evidence for an interatrial shunt. Mitral Valve: The mitral valve is normal in structure and function. There is mild mitral annular calcification. There is trace mitral regurgitation. Aortic Valve: The aortic valve is trileaflet. The aortic valve is slightly calcified. The peak aortic velocity is 2.4 m/sec. The aortic valve mean gradient is 12 mmHg. There is trace aortic regurgitation. Tricuspid Valve: The tricuspid valve is normal in structure and function. There is trace tricuspid regurgitation. Pulmonic Valve: The pulmonic valve leaflets are thin and pliable; valve motion is normal. There is mild pulmonic regurgitation. Great Vessels: The aortic root is normal size. The dimensions of the ascending aorta are normal. The IVC is of normal diameter and collapses greater than 50% with a sniff. This suggests a low right atrial pressure of 3 mm Hg. Pericardium/ Pleura There is no pericardial effusion. There is no pleural effusion. MMode/2D Measurements & Calculations LVIDd: 5.2 cm LVOT diam: 2.0 cm LVIDs: 3.4 cm Ao root diam: 2.4 cm FS: 34.0 % asc Aorta Diam: 3.3 cm EPSS: 1.1 cm IVSd: 0.93 cm LVPWd: 0.87 cm LV zhang. diameter/BSA (cm/m^2): 2.5 LV sys. diameter/BSA (cm/m^2): 1.7 LA A2 area: 23.7 cm2 RA long axis: 5.5 cm LA A4 area: 27.1 cm2 RA area: 14.3 cm2 LA length (vol): 5.9 cm RA vol: 32.0 ml LA vol: 93.1 ml RA : 15.6 ml/m2 LA vol index: 45.4 ml/m2 IVC diam: 1.4 cm RVD1 (basal): 3.8 cm RVD2 (mid): 3.3 cm TAPSE: 1.9 cm Doppler Measurements & Calculations Ao V2 max: 239.2 cm/sec LVOT Max Trevor: 109.9 cm/sec Ao V2 mean: 160.3 cm/sec LV V1 max P.8 mmHg Ao max P.7 mmHg LV V1 VTI: 24.6 cm Ao mean P.1 mmHg ZANDER(I,D): 1.4 cm2 Ao V2 VTI: 54.6 cm ZANDER(V,D): 1.4 cm2 sev ratio: 0.45 ZANDER indexed to BSA (cm^2/m^2): 0.67 MV E max trevor: 100.2 cm/sec PA V2 max: 115.3 cm/sec MV A max trevor: 90.7 cm/sec PA V2 mean: 91.6 cm/sec MV E/A: 1.1 PA mean P.5 mmHg Med Peak E' Trevor: 7.4 cm/sec PA pr(Accel): 34.5 mmHg E/E' med: 13.6 Lat Peak E' Trevor: 9.8 cm/sec E/E' lat: 10.2 E/e' average: 11.9 MV dec time: 0.23 sec SV(LVOT): 74.9 ml Electronically signed by: John Iraheta on Reading Physician:01/08/2022 04:42 PM
== END ==
PROVIDERS: Family Provider Nurse Practitioner; PCP Nurse Practitioner; Referring Provider Nurse Practitioner; Visit Provider Nurse Practitioner
DX: I37.1 Nonrheumatic pulmonary valve insufficiency (principal); R60.0 Localized edema
CPT/HCPCS: 93306

== ENCOUNTER → 2022-02-02 12:49 | Outpatient (CLI) | payer MEDICARE, OTHER, SELFPAY ==
[2021-07-28 17:31] VITALS: BMI 40.7
--- NOTE | 2022-02-02 | DI.MG.S_ITS ---
BILATERAL DIGITAL SCREENING MAMMOGRAM 3D/2D WITH CAD: 02/02/2022 CLINICAL: Routine screening. Personal history of right breast cancer. Family history of breast cancer. Comparison is made to exams dated: 01/31/2021 mammogram, 01/27/2020 mammogram, and 05/27/2018 mammogram - [facility]. There are scattered fibroglandular elements in both breasts. Current study was also evaluated with a Computer Aided Detection (CAD) system. There are benign post operative findings in the right breast. No significant masses, calcifications, or other findings are seen in either breast. There has been no significant interval change. IMPRESSION: BENIGN There is no mammographic evidence of malignancy. A 1 year screening mammogram is recommended. This exam was interpreted at Station ID: [id number]. NOTE: For mammograms, a report in lay terms will be sent to the patient. Approximately 15% of breast malignancies will not be visualized mammographically. In the management of a palpable breast mass, a negative mammogram must not discourage biopsy of a clinically suspicious lesion. Electronically Signed By: Poornima martinez/norma:02/02/2022 14:09:48 copy to: IVONNE EDGAR letter sent: Normal Exam ACR BI-RADS Category 2: Benign Finding(s) [id number]
== END ==
PROVIDERS: Family Provider Nurse Practitioner; PCP Nurse Practitioner; Referring Provider Nurse Practitioner; Visit Provider Nurse Practitioner
DX: Z12.31 Encounter for screening mammogram for malignant neoplasm of breast (principal); Z85.3 Personal history of malignant neoplasm of breast; Z80.3 Family history of malignant neoplasm of breast
CPT/HCPCS: 77063; 77067

== ENCOUNTER → 2022-04-12 15:10 | Outpatient (CLI) | payer MEDICARE, OTHER, SELFPAY ==
[2021-07-28 17:31] VITALS: BMI 40.7
--- NOTE | 2022-04-12 15:13 | DI.RAD.S_ITS ---
PROCEDURE: XR SHOULDER LT MIN 2V INDICATIONS: Significant left shoulder pain, decreased ROM TECHNIQUE: 4 views of the shoulder were acquired. COMPARISON: None. FINDINGS: Bones: No fractures or dislocations. Mild to moderate osteoarthritic changes are seen in acromioclavicular joint and glenohumeral joint with joint space narrowing and subchondral sclerosis. No suspicious bony lesions. Visualized ribs appear intact. Soft tissues: No suspicious soft tissue calcifications. IMPRESSION: [id number] left shoulder joint osteoarthritis. No fracture or dislocation. No gross soft tissue abnormalities. Dictated by: Magnus Keller M.D. on 04/12/2022 at 15:43 Approved by: Magnus Keller M.D. on 04/12/2022 at 15:44
== END ==
PROVIDERS: Family Provider Nurse Practitioner; PCP Nurse Practitioner; Referring Provider Nurse Practitioner; Visit Provider Nurse Practitioner
DX: M25.512 Pain in left shoulder (principal); M25.612 Stiffness of left shoulder, not elsewhere classified; M19.012 Primary osteoarthritis, left shoulder
CPT/HCPCS: 73030

== ENCOUNTER → 2022-04-20 13:12 | Outpatient (CLI) | payer MEDICARE, OTHER, SELFPAY ==
[2021-07-28 17:31] VITALS: BMI 40.7
--- NOTE | 2022-04-20 13:13 | DI.MRI.S_ITS ---
PROCEDURE: MR SHOULDER LT WO CON INDICATIONS: hx avascular necrosis, left shoulder pain and decreased ROM TECHNIQUE: Noncontrast oblique coronal T2 fast spin echo with fat saturation, oblique sagittal T1 spin echo and T2 fast spin echo with fat saturation, axial T1 spin echo and T2 fast spin echo with fat saturation through the shoulder. COMPARISON: [facility], CR, XR SHOULDER LT MIN 2V, 04/12/2022, 15:33. FINDINGS: Image quality: Excellent. Rotator cuff: There is high-grade partial-thickness tear of the distal superior facet and involving the footprint. There is mild supraspinatus cuff muscle atrophy. There is mild infraspinatus and subscapularis tendons tendinosis. Bones and bursae: No bone marrow contusions or fractures. Mild acromioclavicular joint degeneration, and [id number] glenohumeral joint degeneration. The acromion demonstrates conventional anatomy, without an os acromiale. There is subcoracoid bursal fluid consistent with bursitis. Capsule and soft tissues: Degenerative labral fraying. There is posterior labral tear with paralabral cysts. The long head of the biceps tendon demonstrates normal location and morphology. There is prominent fluid within the long head of the biceps tendon sheath, suggesting tenosynovitis. The rotator interval appears normal, without fibrosis. The coracohumeral ligament is normal in thickness. IMPRESSION: 1. High-grade partial-thickness tear of the distal supraspinatus tendon. There is mild supraspinatus muscle atrophy. 2. Mild infraspinatus and subscapularis tendinosis. 3. Subcoracoid bursitis. 4. Vvticwnt-ul-uxoclg glenohumeral joint degeneration. 5. Posterior labral tear with paralabral cysts. Dictated by: Marika Troy M.D. on 04/20/2022 at 15:24 Approved by: Marika Troy M.D. on 04/20/2022 at 15:32
== END ==
PROVIDERS: Family Provider Nurse Practitioner; PCP Nurse Practitioner; Referring Provider Nurse Practitioner; Visit Provider Nurse Practitioner
DX: S43.492A Other sprain of left shoulder joint, initial encounter (principal); M25.612 Stiffness of left shoulder, not elsewhere classified; M19.012 Primary osteoarthritis, left shoulder; M25.512 Pain in left shoulder; M75.112 Incomplete rotator cuff tear or rupture of left shoulder, not specified as traumatic; M75.52 Bursitis of left shoulder
CPT/HCPCS: 73221

== ENCOUNTER → 2022-05-08 11:43 | Outpatient (CLI) | payer MEDICARE, OTHER, SELFPAY ==
[2021-07-28 17:31] VITALS: BMI 40.7
[2022-05-08 12:29] LABS: Add Manual Diff / Slide Review NO; Basophils Absolute Auto 100 /uL (0-100); Basophils Percent Auto 0.6 % (0-2); Eosinophils Absolute Auto 400 /uL (0-450); Eosinophils Percent Auto 4.5 % (2-4); Hematocrit 35.8 % (36-46); Hemoglobin 11.9 g/dL (12.0-16.0); Lymphocytes Absolute Auto 1200 /uL (1100-4500); Lymphocytes Percent Auto 12.6 % (25-40); Mean Corpuscular HGB Conc 33.2 % (30-36); Mean Corpuscular Hemoglobin 31.7 PG (26-34); Mean Corpuscular Volume 95.5 fL (80-100); Monocytes Absolute Auto 700 /uL (0-900); Monocytes Percent Auto 7.3 % (3-14); Neutrophils Absolute Auto 7200 /uL (1500-7000); Platelet Count 207 X10^3/uL (150-400); Red Blood Cell Count 3.75 X10^6/uL (4.0-5.2); Red Cell Distribution Width 13.9 % (11.6-14.8); White Blood Cell Count 9.6 X10^3/uL (4.5-11.0)
[2022-05-08 13:10] LABS: Alanine Aminotransferase 22 IU/L (<35); Albumin 4.2 g/dL (3.5-5.0); Albumin Globulin Ratio 1.4 (1.0-2.8); Alkaline Phosphatase 83 U/L (38-126); Aspartate Aminotransferase 25 IU/L (14-36); BUN Creatinine Ratio 39.2 (6-22); Blood Urea Nitrogen 38 mg/dL (7-17); Calcium 9.6 mg/dL (8.4-10.2); Carbon Dioxide 22 mmol/L (22-32); Chloride 105 mmol/L (98-107); Estimated Glomerular Filt Rate > 60 mL/min (>60); Globulin 3.1 g/dL (1.7-4.1); Glucose 117 mg/dL (80-110); HEMOLYSIS < 15 (0-50); Potassium 5.2 mmol/L (3.4-5.1); Sodium 137 mmol/L (137-145); Total Protein 7.3 g/dL (6.3-8.2)
[2022-05-08 14:16] LABS: Folate 5.3 ng/mL (2.76-20.0)
== END ==
PROVIDERS: Family Provider Nurse Practitioner; PCP Nurse Practitioner; Referring Provider Nurse Practitioner; Visit Provider Nurse Practitioner
DX: D64.9 Anemia, unspecified (principal)
CPT/HCPCS: 80053; 82746; 85025

== ENCOUNTER 2022-06-20 14:30 | Outpatient (RCR) | payer MEDICARE, OTHER, SELFPAY ==
[2021-07-28 17:31] VITALS: BMI 40.7
--- NOTE | 2021-10-05 17:08 | PT.OIE ---
Current Diagnoses Difficulty in walking, not elsewhere classified (10/05/21) Other symptoms and signs involving the musculoskeletal system (10/05/21) Presence of right artificial hip joint (10/05/21) Past Medical History (Last Reviewed 08/03/21 @ 10:35 by ENEIDA Bradley) Acute right hip pain Bilateral bunions Breast cancer Breast cancer of lower-inner quadrant of right female breast Breast cancer, right breast Cervical somatic dysfunction Chronic low back pain Chronic pain of both knees Chronic pain of right knee Family history of breast cancer in mother Flat feet, bilateral History of antineoplastic chemotherapy History of colonoscopy History of incisional hernia repair History of lumpectomy of right breast (05/27/18) History of malignant neoplasm of ovary in adulthood History of total abdominal hysterectomy and bilateral salpingo-oophorectomy HTN (hypertension) Hyperglycemia Hyperlipidemia Iliotibial band syndrome, right leg Lumbar region somatic dysfunction Neck stiffness Numbness and tingling in both hands Obesity 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 Ovarian carcinoma (~2005) Pain in lateral portion of right knee Pelvic somatic dysfunction Port-A-Cath in place Right knee pain Sacral region somatic dysfunction Segmental and somatic dysfunction of abdomen and other regions Somatic dysfunction of lower extremity Status post right hip replacement Thoracic region somatic dysfunction Transaminitis Past Surgical History (Last Reviewed 08/03/21 @ 10:35 by ENEIDA Bradley) History of colonoscopy History of incisional hernia repair History of lumpectomy of right breast (05/27/18) History of total abdominal hysterectomy and bilateral salpingo-oophorectomy Status post right hip replacement Visit Care Team Role Provider Type ENEIDA Bradley Attending Provider Advanced Copra Sampler Family Provider Primary Care Provider Referring Provider Specialty: [facility] Practice Address: [address] [place] [address], [facility] Email: [email or web address] Physical Therapy Initial Evaluation PT-OP-A Visit Information Start: 10/04/21 16:21 Freq: Status: Active Protocol: Document 10/05/21 15:15 AW (Rec: 10/05/21 13:25 AW [id number]) Out-Patient Physical Therapy Visit Information Visit Information Visit Type Initial Evaluation Visit Start Time 14:30 Visit Stop Time 15:15 Total Visit Minutes 45 Visit Number 1 Precautions Precautions posterior R JOHN 07/28/21 PT-OP-B Current Condition Start: 10/04/21 16:21 Freq: Status: Active Protocol: Document 10/05/21 15:15 AW (Rec: 10/05/21 13:25 AW [id number]) Current Condition History of Current Condition Onset Date July 2021 Current Complaints decreased strength and balance s/p R JOHN posterior approach History of Current Condition Chayo had R posterior hip replacement >2 months ago, went home with home health. She had a good experience with home health and is having no significant pain. She now walks with 4WW nearly 100% of the time and can walk at least 1000 feet in <10 minutes. She does best with good ankle support. She had at least three bad falls before surgery which makes her hesitant to walk without a walker. 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 Prior Treatments and Tests Previous PT for back, hip, and knee pain Treatment Goals Patient/Caregiver Goals Pt would like to walk without assistive device. Thinks she needs to unlearn gait compensations. Current Functional Impairments (Reported) Functional Limitations- Other Difficulty walking without 4WW . Uses 4WW to be able to transport objects while cooking or doing other tasks. Personal Factors Other Personal Factors That May Effect Ovarian CA, breast CA, Therapy/Recovery hypertension, BMI 39.5 PT-OP-C Subjective Start: 10/04/21 16:21 Freq: Status: Active Protocol: Document 10/05/21 15:15 AW (Rec: 10/08/21 16:40 AW [id number]) Patient Questionnaires Lower Extremity Functional Scale LEFS Score 19 LEFS Impairment 60 to 79% Impaired (Score 17- 31) OP-PT Pain Assessment Pain Assessment Grid Paper Pain Assessment Grid Completed Yes: Scanned to EMR. Pt indicates R shoulder pain 08/24 . No other pain recorded. PT-OP-D Balance Start: 10/04/21 16:21 Freq: Status: Active Protocol: Document 10/05/21 15:15 AW (Rec: 10/08/21 16:40 AW [id number]) Tinetti Balance Assessment Sitting Balance Sitting Balance Steady, safe Arising from Chair Attempts to Arise Able, requires >1 attempt Standing Balance Immediate Standing Balance Steady w/o support Standing Balance Steady, wide stance Nudged Response Staggers, catches self Standing with Eyes Closed Unsteady Turning Step Pattern Turning 360 Degrees Continuous steps Stability Turning 360 Degrees Unsteady, grabs/staggers Sitting Down Sitting Down Uses arms or unsteady Gait and Step Initiation of Gait No hesitancy Right Foot Step Length Does not pass stance ft. Right Foot Step Height Completely clears floor Left Foot Step Length Does not pass stance foot Left Foot Step Height Completely clears floor Step Description Step Symmetry Step length appears equal Step Continuity Steps appear continuous Gait Description Path Description Mild/moderate deviation Trunk Description Marked sway or uses aide Walking Stance Heels together Scoring and Interpretation Tinetti Composite Score (points) 15 Interpretation of Scores High risk for falls(< 19) Tinetti Impairment Rating from Composite 40 to <60% Impaired (Score 12- Score 16) PT-OP-E Functional Tests Start: 10/04/21 16:21 Freq: Status: Active Protocol: Document 10/05/21 15:15 AW (Rec: 10/08/21 16:40 AW [id number]) Functional Tests 2 Minute Walk Test Distance 190 feet in 101 seconds Device Used 4WW Comments average gait speed 0.57 m/s PT-OP-F Manual Assessment Start: 10/04/21 16:21 Freq: Status: Active Protocol: Document 10/05/21 15:15 AW (Rec: 10/08/21 16:41 AW [id number]) Manual Assessments Soft Tissue Assessment Soft Tissue Mobility Assessment R posterior JOHN scar with fair mobility, some evidence of adhesion. PT-OP-G Mobility & Gait Start: 10/04/21 16:21 Freq: Status: Active Protocol: Document 10/05/21 15:15 AW (Rec: 10/08/21 16:40 AW [id number]) OP Mobility Evaluation Transfers Sit to Stand Requires use of UE to stand from plinth at 23 height. OP Gait Assessment Gait Gait Assistance Required: Standby Assistance Distance (Feet) 190 Assistive Devices Assistive Device 4 Wheeled Walker Orthotic/Prosthetic Devices or Brace: No Gait Deviations General Gait Pattern Antalgic,Decreased Stride Length,Decreased Feet Clearance,Flexed Trunk,Lateral Trunk Lean Comments Gait Comments Gait notable for leftward lean and decreased right foot clearance. Bilateral knee valgus apparent with L more affected than R Stair Climbing Evaluation Evaluation Level of Assist On Stairs Standby Assistance Devices Stair Climbing Assistive Devices Left Railing,Right Railing Technique/Endurance Stair Climbing Direction Ascend and Descend Stair Climbing Technique Step to Step PT-OP-K Range of Motion Start: 10/04/21 16:21 Freq: Status: Active Protocol: Document 10/05/21 15:15 AW (Rec: 10/08/21 16:51 AW [id number]) Hip Goniometric Range of Motion Hip Right Hip ROM WFL Yes Testing Position Supine Comments No restriction within precautions. End range flexion and IR not tested. PT-OP-M Strength Start: 10/04/21 16:21 Freq: Status: Active Protocol: Document 10/05/21 15:15 AW (Rec: 10/08/21 16:51 AW [id number]) Hip Strength Hip Manual Muscle Testing Left Flexion (L2) 4 Good Extension (S1) 3+ Fair+ Abduction 4 Good Right Flexion (L2) 4- Good- Extension (S1) 3+ Fair+ Abduction 4- Good- Knee Strength Knee Manual Muscle Testing Left Flexion (S2) 4+ Good+ Extension (L3) 4+ Good+ Comments Pain with all resisted movement on the left knee. Right Flexion (S2) 4 Good Extension (L3) 4+ Good+ Ankle/Foot Strength Ankle and Foot Manual Muscle Testing bilateral Dorsiflexion (L4) 4+ Good+ Plantarflexion (S1) 4 Good PT-OP-T Assessment and Plan Start: 10/04/21 16:21 Freq: Status: Active Protocol: Document 10/05/21 15:15 AW (Rec: 10/08/21 17:08 AW [id number]) Physical Therapy Assessment Rehab Potential Rehabilitation Potential Good Evaluation Complexity Number of Personal Factors/Comorbidities 1-2 Number of Body Systems Impaired 4 or More Clinical Presentation at Evaluation Evolving Impairments Impairments Balance,Gait,Pain,Soft Tissue Mobility,Strength,Transfers Other Concerns Fall Risk high per Tinetti score of 15 Goals Five Impairment LEFS Intermediate Goal (LTG) Pt will score 60/80 or greater on LEFS to demonstrate improvement in daily function. LTG Duration 10 weeks - 12/14/21 Four Impairment decreased balance Short Term Goal (STG) Pt will score 19 or higher on Tinetti. STG Duration 5 weeks - 11/09/21 Intermediate Goal (LTG) Pt will score within age- matched norms on Dynamic Gait Index as a measure of reduced falls risk. LTG Duration 10 weeks - 12/14/21 Three Impairment BLE strength Short Term Goal (STG) Pt will rise from a 21 tall surface without use of hands STG Duration 5 weeks - 11/09/21 Intermediate Goal (LTG) Pt will complete 5 Time Sit to Stand from a standard height chair without use of hands in 15 seconds or less as a measure of improved BLE strength and power. LTG Duration 10 weeks - 12/14/21 Two Impairment needs assistive device, gait speed Short Term Goal (STG) Pt will walk 1100 feet on 6MWT with SPC or LRAD as a measure of improved efficiency in gait. STG Duration 5 weeks - 11/09/21 Intermediate Goal (LTG) Pt will walk 1200 feet or greater on 6MWT without AD as a measure of improved gait speed for safe community ambulation. LTG Duration 10 weeks - 12/14/21 One Impairment lacks HEP Short Term Goal (STG) Pt will be instructed in HEP for BLE strength and ROM within hip precautions STG Duration 5 weeks - 11/09/21 LTG Duration 10 weeks - 12/14/21 Assessment Summary Assessment Chayo is a 71 yo woman who attends outpatient physical therapy with impaired strength , balance, and gait following right JOHN with posterior approach on 07/28/21. Gait speed of 0.57 m/s is insufficient for safe community ambulation and Tinetti score of 15 indicates increased risk of falls. Pt is expected to benefit from skilled physical therapy to improve her mobility independence, decrease her risk of falls, and to promote fitness for daily function and health. Physical Therapy Plan Frequency and Duration Frequency of Treatment 2x/Week Duration of Treatment 10 weeks Plan of Care Start Date 10/05/21 Plan of Care End Date 12/14/21 Therapeutic Interventions Therapeutic Interventions Balance Training,Gait Training ,Home Exercise Program,Manual Therapy,Neuromuscular Re- education,Self-Care/Home Management,Soft Tissue Mobilization,Therapeutic Activities,Therapeutic Exercises Modalities Cold Pack/Ice Massage,Hot Packs Next Visit Focus/Plan Next Note Type Treatment Note Next Visit Plan Review any exercises pt is still doing from home health PT and adjust as indicated. Initiate strength and balance work. Gait training with SPC if pt tolerates.
--- NOTE | 2021-10-05 17:09 | PT.OPPOC ---
Physical, Occupational & Speech Therapy At [facility] Current Diagnoses Difficulty in walking, not elsewhere classified (10/05/21) Other symptoms and signs involving the musculoskeletal system (10/05/21) Presence of right artificial hip joint (10/05/21) Visit Care Team Role Provider Type ENEIDA Bradley Attending Provider Advanced Ibm Bpm Developer Family Provider Primary Care Provider Referring Provider Specialty: Family Practice Address: [address] [place] [address], [facility] Email: [email or web address] Plan Of Care PT-OP-T Assessment and Plan Start: 10/04/21 16:21 Freq: Status: Active Protocol: Document 10/05/21 15:15 AW (Rec: 10/08/21 17:08 AW [id number]) Physical Therapy Assessment Rehab Potential Rehabilitation Potential Good Evaluation Complexity Number of Personal Factors/Comorbidities 1-2 Number of Body Systems Impaired 4 or More Clinical Presentation at Evaluation Evolving Impairments Impairments Balance,Gait,Pain,Soft Tissue Mobility,Strength,Transfers Other Concerns Fall Risk high per Tinetti score of 15 Goals Five Impairment LEFS Teacher Music Goal (LTG) Pt will score 60/80 or greater on LEFS to demonstrate improvement in daily function. LTG Duration 10 weeks - 12/14/21 Four Impairment decreased balance Short Term Goal (STG) Pt will score 19 or higher on Tinetti. STG Duration 5 weeks - 11/09/21 Mcc Goal (LTG) Pt will score within age- matched norms on Dynamic Gait Index as a measure of reduced falls risk. LTG Duration 10 weeks - 12/14/21 Three Impairment BLE strength Short Term Goal (STG) Pt will rise from a 21 tall surface without use of hands STG Duration 5 weeks - 11/09/21 Teacher Music Goal (LTG) Pt will complete 5 Time Sit to Stand from a standard height chair without use of hands in 15 seconds or less as a measure of improved BLE strength and power. LTG Duration 10 weeks - 12/14/21 Two Impairment needs assistive device, gait speed Short Term Goal (STG) Pt will walk 1100 feet on 6MWT with SPC or LRAD as a measure of improved efficiency in gait. STG Duration 5 weeks - 11/09/21 Mcc Goal (LTG) Pt will walk 1200 feet or greater on 6MWT without AD as a measure of improved gait speed for safe community ambulation. LTG Duration 10 weeks - 12/14/21 One Impairment lacks HEP Short Term Goal (STG) Pt will be instructed in HEP for BLE strength and ROM within hip precautions STG Duration 5 weeks - 11/09/21 LTG Duration 10 weeks - 12/14/21 Assessment Summary Assessment Chayo is a 71 yo woman who attends outpatient physical therapy with impaired strength , balance, and gait following right JOHN with posterior approach on 07/28/21. Gait speed of 0.57 m/s is insufficient for safe community ambulation and Tinetti score of 15 indicates increased risk of falls. Pt is expected to benefit from skilled physical therapy to improve her mobility independence, decrease her risk of falls, and to promote fitness for daily function and health. Physical Therapy Plan Frequency and Duration Frequency of Treatment 2x/Week Duration of Treatment 10 weeks Plan of Care Start Date 10/05/21 Plan of Care End Date 12/14/21 Therapeutic Interventions Therapeutic Interventions Balance Training,Gait Training ,Home Exercise Program,Manual Therapy,Neuromuscular Re- education,Self-Care/Home Management,Soft Tissue Mobilization,Therapeutic Activities,Therapeutic Exercises Modalities Cold Pack/Ice Massage,Hot Packs Next Visit Focus/Plan Next Note Type Treatment Note Next Visit Plan Review any exercises pt is still doing from home health PT and adjust as indicated. Initiate strength and balance work. Gait training with SPC if pt tolerates. Plan of Care Dates Plan of Care Start Date 10/05/21 Plan of Care End Date 12/14/21 Electronically Signed by: Kim Jerome PT 10/08/21 [id number] If you are in agreement with this Plan of Care, please return a signed and dated copy. I have reviewed this Plan of Care and certify that the skilled therapy services above are required to meet the patient?s needs. Physician Signature Date Printed Name and Credentials Clinical Instructor Signature Printed Name and Credentials
--- NOTE | 2021-10-10 14:31 | PT.OTN ---
Current Diagnoses Difficulty in walking, not elsewhere classified (10/10/21) Other symptoms and signs involving the musculoskeletal system (10/10/21) Presence of right artificial hip joint (10/10/21) Physical Therapy Treatment Note PT-OP-A Visit Information Start: 10/04/21 16:21 Freq: Status: Active Protocol: Document 10/10/21 13:45 DCW (Rec: 10/10/21 14:31 DCW [id number]) Out-Patient Physical Therapy Visit Information Visit Information Visit Type Treatment Note Visit Start Time 13:45 Visit Stop Time 14:30 Total Visit Minutes 45 Visit Number 2 Number of SOFTWARE CONTROLS ENGINEER Visits 0 Precautions Precautions posterior R JOHN 07/28/21 PT-OP-B Current Condition Start: 10/04/21 16:21 Freq: Status: Active Protocol: Document 10/05/21 15:15 AW (Rec: 10/05/21 13:25 AW [id number]) Current Condition History of Current Condition Onset Date July 2021 Current Complaints decreased strength and balance s/p R JOHN posterior approach History of Current Condition Chayo had R posterior hip replacement >2 months ago, went home with home health. She had a good experience with home health and is having no significant pain. She now walks with 4WW nearly 100% of the time and can walk at least 1000 feet in <10 minutes. She does best with good ankle support. She had at least three bad falls before surgery which makes her hesitant to walk without a walker. 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 Prior Treatments and Tests Previous PT for back, hip, and knee pain Treatment Goals Patient/Caregiver Goals Pt would like to walk without assistive device. Thinks she needs to unlearn gait compensations. Current Functional Impairments (Reported) Functional Limitations- Other Difficulty walking without 4WW . Uses 4WW to be able to transport objects while cooking or doing other tasks. Personal Factors Other Personal Factors That May Effect Ovarian CA, breast CA, Therapy/Recovery hypertension, BMI 39.5 PT-OP-C Subjective Start: 10/04/21 16:21 Freq: Status: Active Protocol: Document 10/10/21 13:45 DCW (Rec: 10/10/21 14:31 DCW [id number]) OP-PT Subjective Patient Comments Patient Comments Pt notes she still feels unstable with her balance and has difficulty descending stairs. Has been using her cane for short distances around her house. PT-OP-D Balance Start: 10/04/21 16:21 Freq: Status: Active Protocol: Document 10/05/21 15:15 AW (Rec: 10/08/21 16:40 AW [id number]) Tinetti Balance Assessment Sitting Balance Sitting Balance Steady, safe Arising from Chair Attempts to Arise Able, requires >1 attempt Standing Balance Immediate Standing Balance Steady w/o support Standing Balance Steady, wide stance Nudged Response Staggers, catches self Standing with Eyes Closed Unsteady Turning Step Pattern Turning 360 Degrees Continuous steps Stability Turning 360 Degrees Unsteady, grabs/staggers Sitting Down Sitting Down Uses arms or unsteady Gait and Step Initiation of Gait No hesitancy Right Foot Step Length Does not pass stance ft. Right Foot Step Height Completely clears floor Left Foot Step Length Does not pass stance foot Left Foot Step Height Completely clears floor Step Description Step Symmetry Step length appears equal Step Continuity Steps appear continuous Gait Description Path Description Mild/moderate deviation Trunk Description Marked sway or uses aide Walking Stance Heels together Scoring and Interpretation Tinetti Composite Score (points) 15 Interpretation of Scores High risk for falls(< 19) Tinetti Impairment Rating from Composite 40 to <60% Impaired (Score 12- Score 16) PT-OP-E Functional Tests Start: 10/04/21 16:21 Freq: Status: Active Protocol: Document 10/05/21 15:15 AW (Rec: 10/08/21 16:40 AW [id number]) Functional Tests 2 Minute Walk Test Distance 190 feet in 101 seconds Device Used 4WW Comments average gait speed 0.57 m/s PT-OP-F Manual Assessment Start: 10/04/21 16:21 Freq: Status: Active Protocol: Document 10/05/21 15:15 AW (Rec: 10/08/21 16:41 AW [id number]) Manual Assessments Soft Tissue Assessment Soft Tissue Mobility Assessment R posterior JOHN scar with fair mobility, some evidence of adhesion. PT-OP-G Mobility & Gait Start: 10/04/21 16:21 Freq: Status: Active Protocol: Document 10/05/21 15:15 AW (Rec: 10/08/21 16:40 AW [id number]) OP Mobility Evaluation Transfers Sit to Stand Requires use of UE to stand from plinth at 23 height. OP Gait Assessment Gait Gait Assistance Required: Standby Assistance Distance (Feet) 190 Assistive Devices Assistive Device 4 Wheeled Walker Orthotic/Prosthetic Devices or Brace: No Gait Deviations General Gait Pattern Antalgic,Decreased Stride Length,Decreased Feet Clearance,Flexed Trunk,Lateral Trunk Lean Comments Gait Comments Gait notable for leftward lean and decreased right foot clearance. Bilateral knee valgus apparent with L more affected than R Stair Climbing Evaluation Evaluation Level of Assist On Stairs Standby Assistance Devices Stair Climbing Assistive Devices Left Railing,Right Railing Technique/Endurance Stair Climbing Direction Ascend and Descend Stair Climbing Technique Step to Step PT-OP-K Range of Motion Start: 10/04/21 16:21 Freq: Status: Active Protocol: Document 10/05/21 15:15 AW (Rec: 10/08/21 16:51 AW [id number]) Hip Goniometric Range of Motion Hip Right Hip ROM WFL Yes Testing Position Supine Comments No restriction within precautions. End range flexion and IR not tested. PT-OP-M Strength Start: 10/04/21 16:21 Freq: Status: Active Protocol: Document 10/05/21 15:15 AW (Rec: 10/08/21 16:51 AW [id number]) Hip Strength Hip Manual Muscle Testing Left Flexion (L2) 4 Good Extension (S1) 3+ Fair+ Abduction 4 Good Right Flexion (L2) 4- Good- Extension (S1) 3+ Fair+ Abduction 4- Good- Knee Strength Knee Manual Muscle Testing Left Flexion (S2) 4+ Good+ Extension (L3) 4+ Good+ Comments Pain with all resisted movement on the left knee. Right Flexion (S2) 4 Good Extension (L3) 4+ Good+ Ankle/Foot Strength Ankle and Foot Manual Muscle Testing bilateral Dorsiflexion (L4) 4+ Good+ Plantarflexion (S1) 4 Good PT-OP-Q Treatments Start: 10/04/21 16:21 Freq: Status: Active Protocol: Document 10/10/21 13:45 DCW (Rec: 10/10/21 14:31 DCW [id number]) Therapeutic Exercises Supine Exercises SLR Supine Exercise Name SLR Side bilateral Sitting Exercises LAQ Sitting Exercise Name LAQ Side bilateral Resistance 5# Hip Abduction Sitting Exercise Name Abd Side bilateral Resistance Lv 2 Hamstring curl Sitting Exercise Name HS Curl Side bilateral Resistance Lv 2 Standing Exercises Hip abduction Standing Exercise Name Hip Abduction Side bilateral Resistance Lv 1 Hip extension Standing Exercise Name Hip extension Side bilateral Resistance Lv 1 Gait Training Gait Activity Stairs Device Used Rail, SPC Level of Assistance SBA SPC Description Gait training Device Used SPC Level of Assistance SBA Distance/Duration 150' Neuro Re-Education Treatment Balance Activities SLS Details SLS NBOS Details NBOS Surface Blue Foam PT-OP-T Assessment and Plan Start: 10/04/21 16:21 Freq: Status: Active Protocol: Document 10/10/21 13:45 DCW (Rec: 10/10/21 14:31 DCW [id number]) Physical Therapy Assessment Goals Five Impairment LEFS Senior Living Goal (LTG) Pt will score 60/80 or greater on LEFS to demonstrate improvement in daily function. LTG Duration 10 weeks - 12/14/21 Four Impairment decreased balance Short Term Goal (STG) Pt will score 19 or higher on Tinetti. STG Duration 5 weeks - 11/09/21 Senior Living Goal (LTG) Pt will score within age- matched norms on Dynamic Gait Index as a measure of reduced falls risk. LTG Duration 10 weeks - 12/14/21 Three Impairment BLE strength Short Term Goal (STG) Pt will rise from a 21 tall surface without use of hands STG Duration 5 weeks - 11/09/21 Senior Living Goal (LTG) Pt will complete 5 Time Sit to Stand from a standard height chair without use of hands in 15 seconds or less as a measure of improved BLE strength and power. LTG Duration 10 weeks - 12/14/21 Two Impairment needs assistive device, gait speed Short Term Goal (STG) Pt will walk 1100 feet on 6MWT with SPC or LRAD as a measure of improved efficiency in gait. STG Duration 5 weeks - 11/09/21 Terrazzo Finisher Helper Goal (LTG) Pt will walk 1200 feet or greater on 6MWT without AD as a measure of improved gait speed for safe community ambulation. LTG Duration 10 weeks - 12/14/21 One Impairment lacks HEP Short Term Goal (STG) Pt will be instructed in HEP for BLE strength and ROM within hip precautions STG Duration 5 weeks - 11/09/21 LTG Duration 10 weeks - 12/14/21 Assessment Summary Assessment Pt tolerated new exercises very well, continues to struggle a bit with gait, slightly unstable with SPC, should continue for now with FWW at most times. Physical Therapy Plan Frequency and Duration Frequency of Treatment 2x/Week Duration of Treatment 10 weeks Plan of Care Start Date 10/05/21 Plan of Care End Date 12/14/21 Therapeutic Interventions Therapeutic Interventions Balance Training,Gait Training ,Home Exercise Program,Manual Therapy,Neuromuscular Re- education,Self-Care/Home Management,Soft Tissue Mobilization,Therapeutic Activities,Therapeutic Exercises Modalities Cold Pack/Ice Massage,Hot Packs Next Visit Focus/Plan Next Note Type Treatment Note Next Visit Plan Review any exercises pt is still doing from home health PT and adjust as indicated. Initiate strength and balance work. Gait training with SPC if pt tolerates.
--- NOTE | 2021-10-12 12:44 | PT.OTN ---
Current Diagnoses Difficulty in walking, not elsewhere classified (10/12/21) Other symptoms and signs involving the musculoskeletal system (10/12/21) Presence of right artificial hip joint (10/12/21) Physical Therapy Treatment Note PT-OP-A Visit Information Start: 10/04/21 16:21 Freq: Status: Active Protocol: Document 10/12/21 12:00 DCW (Rec: 10/12/21 12:44 DCW [id number]) Out-Patient Physical Therapy Visit Information Visit Information Visit Type Treatment Note Visit Start Time 12:00 Visit Stop Time 12:45 Total Visit Minutes 45 Visit Number 3 Number of BAG ADJUSTER Visits 0 Precautions Precautions posterior R JOHN 07/28/21 PT-OP-B Current Condition Start: 10/04/21 16:21 Freq: Status: Active Protocol: Document 10/05/21 15:15 AW (Rec: 10/05/21 13:25 AW [id number]) Current Condition History of Current Condition Onset Date July 2021 Current Complaints decreased strength and balance s/p R JOHN posterior approach History of Current Condition Chayo had R posterior hip replacement >2 months ago, went home with home health. She had a good experience with home health and is having no significant pain. She now walks with 4WW nearly 100% of the time and can walk at least 1000 feet in <10 minutes. She does best with good ankle support. She had at least three bad falls before surgery which makes her hesitant to walk without a walker. 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 Prior Treatments and Tests Previous PT for back, hip, and knee pain Treatment Goals Patient/Caregiver Goals Pt would like to walk without assistive device. Thinks she needs to unlearn gait compensations. Current Functional Impairments (Reported) Functional Limitations- Other Difficulty walking without 4WW . Uses 4WW to be able to transport objects while cooking or doing other tasks. Personal Factors Other Personal Factors That May Effect Ovarian CA, breast CA, Therapy/Recovery hypertension, BMI 39.5 PT-OP-C Subjective Start: 10/04/21 16:21 Freq: Status: Active Protocol: Document 10/12/21 12:00 DCW (Rec: 10/12/21 12:44 DCW [id number]) OP-PT Subjective Patient Comments Patient Comments Pt admits she is a little bit sore after her session Saturday PT-OP-D Balance Start: 10/04/21 16:21 Freq: Status: Active Protocol: Document 10/05/21 15:15 AW (Rec: 10/08/21 16:40 AW [id number]) Tinetti Balance Assessment Sitting Balance Sitting Balance Steady, safe Arising from Chair Attempts to Arise Able, requires >1 attempt Standing Balance Immediate Standing Balance Steady w/o support Standing Balance Steady, wide stance Nudged Response Staggers, catches self Standing with Eyes Closed Unsteady Turning Step Pattern Turning 360 Degrees Continuous steps Stability Turning 360 Degrees Unsteady, grabs/staggers Sitting Down Sitting Down Uses arms or unsteady Gait and Step Initiation of Gait No hesitancy Right Foot Step Length Does not pass stance ft. Right Foot Step Height Completely clears floor Left Foot Step Length Does not pass stance foot Left Foot Step Height Completely clears floor Step Description Step Symmetry Step length appears equal Step Continuity Steps appear continuous Gait Description Path Description Mild/moderate deviation Trunk Description Marked sway or uses aide Walking Stance Heels together Scoring and Interpretation Tinetti Composite Score (points) 15 Interpretation of Scores High risk for falls(< 19) Tinetti Impairment Rating from Composite 40 to <60% Impaired (Score 12- Score 16) PT-OP-E Functional Tests Start: 10/04/21 16:21 Freq: Status: Active Protocol: Document 10/05/21 15:15 AW (Rec: 10/08/21 16:40 AW [id number]) Functional Tests 2 Minute Walk Test Distance 190 feet in 101 seconds Device Used 4WW Comments average gait speed 0.57 m/s PT-OP-F Manual Assessment Start: 10/04/21 16:21 Freq: Status: Active Protocol: Document 10/05/21 15:15 AW (Rec: 10/08/21 16:41 AW [id number]) Manual Assessments Soft Tissue Assessment Soft Tissue Mobility Assessment R posterior JOHN scar with fair mobility, some evidence of adhesion. PT-OP-G Mobility & Gait Start: 10/04/21 16:21 Freq: Status: Active Protocol: Document 10/05/21 15:15 AW (Rec: 10/08/21 16:40 AW [id number]) OP Mobility Evaluation Transfers Sit to Stand Requires use of UE to stand from plinth at 23 height. OP Gait Assessment Gait Gait Assistance Required: Standby Assistance Distance (Feet) 190 Assistive Devices Assistive Device 4 Wheeled Walker Orthotic/Prosthetic Devices or Brace: No Gait Deviations General Gait Pattern Antalgic,Decreased Stride Length,Decreased Feet Clearance,Flexed Trunk,Lateral Trunk Lean Comments Gait Comments Gait notable for leftward lean and decreased right foot clearance. Bilateral knee valgus apparent with L more affected than R Stair Climbing Evaluation Evaluation Level of Assist On Stairs Standby Assistance Devices Stair Climbing Assistive Devices Left Railing,Right Railing Technique/Endurance Stair Climbing Direction Ascend and Descend Stair Climbing Technique Step to Step PT-OP-K Range of Motion Start: 10/04/21 16:21 Freq: Status: Active Protocol: Document 10/05/21 15:15 AW (Rec: 10/08/21 16:51 AW [id number]) Hip Goniometric Range of Motion Hip Right Hip ROM WFL Yes Testing Position Supine Comments No restriction within precautions. End range flexion and IR not tested. PT-OP-M Strength Start: 10/04/21 16:21 Freq: Status: Active Protocol: Document 10/05/21 15:15 AW (Rec: 10/08/21 16:51 AW [id number]) Hip Strength Hip Manual Muscle Testing Left Flexion (L2) 4 Good Extension (S1) 3+ Fair+ Abduction 4 Good Right Flexion (L2) 4- Good- Extension (S1) 3+ Fair+ Abduction 4- Good- Knee Strength Knee Manual Muscle Testing Left Flexion (S2) 4+ Good+ Extension (L3) 4+ Good+ Comments Pain with all resisted movement on the left knee. Right Flexion (S2) 4 Good Extension (L3) 4+ Good+ Ankle/Foot Strength Ankle and Foot Manual Muscle Testing bilateral Dorsiflexion (L4) 4+ Good+ Plantarflexion (S1) 4 Good PT-OP-Q Treatments Start: 10/04/21 16:21 Freq: Status: Active Protocol: Document 10/12/21 12:00 DCW (Rec: 10/12/21 12:44 DCW [id number]) Cardio Equipment Recumbent Elliptical ([employer]) Duration (Minutes) 5 Resistance 1 Seat Position 8 Therapeutic Exercises Supine Exercises Heel slides Supine Exercise Name Heel slides Side right Hip Abduction Supine Exercise Name windield wipers Side right SLR Supine Exercise Name SLR Side bilateral Sidelying Exercises Clamshell Sidelying Exercise Name Clamshell Side right Sitting Exercises LAQ Sitting Exercise Name LAQ Side bilateral Resistance 5# Hip Abduction Sitting Exercise Name Abd Side bilateral Resistance Lv 2 Hamstring curl Sitting Exercise Name HS Curl Side bilateral Resistance Lv 2 Standing Exercises Hip abduction Standing Exercise Name Hip Abduction Side bilateral Resistance Lv 2 Hip extension Standing Exercise Name Hip extension Side bilateral Resistance Lv 2 Neuro Re-Education Treatment Balance Activities NBOS Details NBOS Surface Blue Foam Comments EO/EC PT-OP-T Assessment and Plan Start: 10/04/21 16:21 Freq: Status: Active Protocol: Document 10/12/21 12:00 DCW (Rec: 10/12/21 12:44 DCW [id number]) Physical Therapy Assessment Impairments Impairments Balance,Gait,Pain,Soft Tissue Mobility,Strength,Transfers Other Concerns Fall Risk high per Tinetti score of 15 Goals Five Impairment LEFS Retirement Goal (LTG) Pt will score 60/80 or greater on LEFS to demonstrate improvement in daily function. LTG Duration 10 weeks - 12/14/21 Four Impairment decreased balance Short Term Goal (STG) Pt will score 19 or higher on Tinetti. STG Duration 5 weeks - 11/09/21 Archives Specialist Goal (LTG) Pt will score within age- matched norms on Dynamic Gait Index as a measure of reduced falls risk. LTG Duration 10 weeks - 12/14/21 Three Impairment BLE strength Short Term Goal (STG) Pt will rise from a 21 tall surface without use of hands STG Duration 5 weeks - 11/09/21 Archives Specialist Goal (LTG) Pt will complete 5 Time Sit to Stand from a standard height chair without use of hands in 15 seconds or less as a measure of improved BLE strength and power. LTG Duration 10 weeks - 12/14/21 Two Impairment needs assistive device, gait speed Short Term Goal (STG) Pt will walk 1100 feet on 6MWT with SPC or LRAD as a measure of improved efficiency in gait. STG Duration 5 weeks - 11/09/21 Archives Specialist Goal (LTG) Pt will walk 1200 feet or greater on 6MWT without AD as a measure of improved gait speed for safe community ambulation. LTG Duration 10 weeks - 12/14/21 One Impairment lacks HEP Short Term Goal (STG) Pt will be instructed in HEP for BLE strength and ROM within hip precautions STG Duration 5 weeks - 11/09/21 LTG Duration 10 weeks - 12/14/21 Assessment Summary Assessment Pt showing decent progress just from two days ago, improved gait with FWW, feels more stable with balance challenges. Physical Therapy Plan Frequency and Duration Frequency of Treatment 2x/Week Duration of Treatment 10 weeks Plan of Care Start Date 10/05/21 Plan of Care End Date 12/14/21 Therapeutic Interventions Therapeutic Interventions Balance Training,Gait Training ,Home Exercise Program,Manual Therapy,Neuromuscular Re- education,Self-Care/Home Management,Soft Tissue Mobilization,Therapeutic Activities,Therapeutic Exercises Modalities Cold Pack/Ice Massage,Hot Packs Next Visit Focus/Plan Next Note Type Treatment Note Next Visit Plan Review any exercises pt is still doing from home health PT and adjust as indicated. Initiate strength and balance work. Gait training with SPC if pt tolerates.
--- NOTE | 2021-10-25 14:37 | PT.OPDS ---
Current Diagnoses Difficulty in walking, not elsewhere classified (10/25/21) Other symptoms and signs involving the musculoskeletal system (10/25/21) Presence of right artificial hip joint (10/25/21) Visit Care Team Role Provider Type ENEIDA Bradley Attending Provider Advanced Switch Crew Supervisor Family Provider Primary Care Provider Referring Provider Specialty: Family Practice Address: [address] [place] [address], [facility] Email: [email or web address] Visit Number Visit Number 4 Discharge Summary PT-OP-B Current Condition Start: 10/04/21 16:21 Freq: Status: Active Protocol: Document 10/05/21 15:15 AW (Rec: 10/05/21 13:25 AW [id number]) Current Condition History of Current Condition Onset Date July 2021 Current Complaints decreased strength and balance s/p R JOHN posterior approach History of Current Condition Chayo had R posterior hip replacement >2 months ago, went home with home health. She had a good experience with home health and is having no significant pain. She now walks with 4WW nearly 100% of the time and can walk at least 1000 feet in <10 minutes. She does best with good ankle support. She had at least three bad falls before surgery which makes her hesitant to walk without a walker. 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 Prior Treatments and Tests Previous PT for back, hip, and knee pain Treatment Goals Patient/Caregiver Goals Pt would like to walk without assistive device. Thinks she needs to unlearn gait compensations. Current Functional Impairments (Reported) Functional Limitations- Other Difficulty walking without 4WW . Uses 4WW to be able to transport objects while cooking or doing other tasks. Personal Factors Other Personal Factors That May Effect Ovarian CA, breast CA, Therapy/Recovery hypertension, BMI 39.5 PT-OP-C Subjective Start: 10/04/21 16:21 Freq: Status: Active Protocol: Document 10/25/21 13:33 AW (Rec: 10/25/21 14:36 AW [id number]) OP-PT Subjective Patient Comments Patient Comments Soreness improved after second session. Using cane more now but still like the 4WW in the kitchen for efficiency. About a week ago, was descending and tweaked the left knee which is coke still cleaner. Got 2nd COVID booster last and felt the swelling was more pronounced after that. PT-OP-D Balance Start: 10/04/21 16:21 Freq: Status: Active Protocol: Document 10/05/21 15:15 AW (Rec: 10/08/21 16:40 AW [id number]) Tinetti Balance Assessment Sitting Balance Sitting Balance Steady, safe Arising from Chair Attempts to Arise Able, requires >1 attempt Standing Balance Immediate Standing Balance Steady w/o support Standing Balance Steady, wide stance Nudged Response Staggers, catches self Standing with Eyes Closed Unsteady Turning Step Pattern Turning 360 Degrees Continuous steps Stability Turning 360 Degrees Unsteady, grabs/staggers Sitting Down Sitting Down Uses arms or unsteady Gait and Step Initiation of Gait No hesitancy Right Foot Step Length Does not pass stance ft. Right Foot Step Height Completely clears floor Left Foot Step Length Does not pass stance foot Left Foot Step Height Completely clears floor Step Description Step Symmetry Step length appears equal Step Continuity Steps appear continuous Gait Description Path Description Mild/moderate deviation Trunk Description Marked sway or uses aide Walking Stance Heels together Scoring and Interpretation Tinetti Composite Score (points) 15 Interpretation of Scores High risk for falls(< 19) Tinetti Impairment Rating from Composite 40 to <60% Impaired (Score 12- Score 16) PT-OP-E Functional Tests Start: 10/04/21 16:21 Freq: Status: Active Protocol: Document 10/05/21 15:15 AW (Rec: 10/08/21 16:40 AW [id number]) Functional Tests 2 Minute Walk Test Distance 190 feet in 101 seconds Device Used 4WW Comments average gait speed 0.57 m/s PT-OP-F Manual Assessment Start: 10/04/21 16:21 Freq: Status: Active Protocol: Document 10/05/21 15:15 AW (Rec: 10/08/21 16:41 AW [id number]) Manual Assessments Soft Tissue Assessment Soft Tissue Mobility Assessment R posterior JOHN scar with fair mobility, some evidence of adhesion. PT-OP-G Mobility & Gait Start: 10/04/21 16:21 Freq: Status: Active Protocol: Document 10/05/21 15:15 AW (Rec: 10/08/21 16:40 AW [id number]) OP Mobility Evaluation Transfers Sit to Stand Requires use of UE to stand from plinth at 23 height. OP Gait Assessment Gait Gait Assistance Required: Standby Assistance Distance (Feet) 190 Assistive Devices Assistive Device 4 Wheeled Walker Orthotic/Prosthetic Devices or Brace: No Gait Deviations General Gait Pattern Antalgic,Decreased Stride Length,Decreased Feet Clearance,Flexed Trunk,Lateral Trunk Lean Comments Gait Comments Gait notable for leftward lean and decreased right foot clearance. Bilateral knee valgus apparent with L more affected than R Stair Climbing Evaluation Evaluation Level of Assist On Stairs Standby Assistance Devices Stair Climbing Assistive Devices Left Railing,Right Railing Technique/Endurance Stair Climbing Direction Ascend and Descend Stair Climbing Technique Step to Step PT-OP-K Range of Motion Start: 10/04/21 16:21 Freq: Status: Active Protocol: Document 10/05/21 15:15 AW (Rec: 10/08/21 16:51 AW [id number]) Hip Goniometric Range of Motion Hip Right Hip ROM WFL Yes Testing Position Supine Comments No restriction within precautions. End range flexion and IR not tested. PT-OP-M Strength Start: 10/04/21 16:21 Freq: Status: Active Protocol: Document 10/05/21 15:15 AW (Rec: 10/08/21 16:51 AW [id number]) Hip Strength Hip Manual Muscle Testing Left Flexion (L2) 4 Good Extension (S1) 3+ Fair+ Abduction 4 Good Right Flexion (L2) 4- Good- Extension (S1) 3+ Fair+ Abduction 4- Good- Knee Strength Knee Manual Muscle Testing Left Flexion (S2) 4+ Good+ Extension (L3) 4+ Good+ Comments Pain with all resisted movement on the left knee. Right Flexion (S2) 4 Good Extension (L3) 4+ Good+ Ankle/Foot Strength Ankle and Foot Manual Muscle Testing bilateral Dorsiflexion (L4) 4+ Good+ Plantarflexion (S1) 4 Good PT-OP-T Assessment and Plan Start: 10/04/21 16:21 Freq: Status: Active Protocol: Document 10/25/21 13:33 AW (Rec: 10/25/21 14:36 AW [id number]) Physical Therapy Assessment Impairments Impairments Balance,Gait,Pain,Soft Tissue Mobility,Strength,Transfers Other Concerns Fall Risk high per Tinetti score of 15 Goals Five Impairment LEFS Longterm Goal (LTG) Pt will score 60/80 or greater on LEFS to demonstrate improvement in daily function. LTG Duration 10 weeks - 12/14/21 Four Impairment decreased balance Short Term Goal (STG) Pt will score 19 or higher on Tinetti. STG Duration 5 weeks - 11/09/21 Automobile Body Customizer Goal (LTG) Pt will score within age- matched norms on Dynamic Gait Index as a measure of reduced falls risk. LTG Duration 10 weeks - 12/14/21 Three Impairment BLE strength Short Term Goal (STG) Pt will rise from a 21 tall surface without use of hands STG Duration 5 weeks - 11/09/21 Automobile Body Customizer Goal (LTG) Pt will complete 5 Time Sit to Stand from a standard height chair without use of hands in 15 seconds or less as a measure of improved BLE strength and power. LTG Duration 10 weeks - 12/14/21 Two Impairment needs assistive device, gait speed Short Term Goal (STG) Pt will walk 1100 feet on 6MWT with SPC or LRAD as a measure of improved efficiency in gait. STG Duration 5 weeks - 11/09/21 Longterm Goal (LTG) Pt will walk 1200 feet or greater on 6MWT without AD as a measure of improved gait speed for safe community ambulation. LTG Duration 10 weeks - 12/14/21 One Impairment lacks HEP Short Term Goal (STG) Pt will be instructed in HEP for BLE strength and ROM within hip precautions STG Duration 5 weeks - 11/09/21 LTG Duration 10 weeks - 12/14/21 Physical Therapy Plan Frequency and Duration Frequency of Treatment 2x/Week Duration of Treatment 10 weeks Plan of Care Start Date 10/05/21 Plan of Care End Date 12/14/21 Therapeutic Interventions Therapeutic Interventions Balance Training,Gait Training ,Home Exercise Program,Manual Therapy,Neuromuscular Re- education,Self-Care/Home Management,Soft Tissue Mobilization,Therapeutic Activities,Therapeutic Exercises Modalities Cold Pack/Ice Massage,Hot Packs
--- NOTE | 2021-10-25 17:12 | PT.OTN ---
Current Diagnoses Difficulty in walking, not elsewhere classified (10/25/21) Other symptoms and signs involving the musculoskeletal system (10/25/21) Presence of right artificial hip joint (10/25/21) Physical Therapy Treatment Note PT-OP-A Visit Information Start: 10/04/21 16:21 Freq: Status: Active Protocol: Document 10/25/21 13:33 AW (Rec: 10/25/21 14:36 AW [id number]) Out-Patient Physical Therapy Visit Information Visit Information Visit Type Treatment Note Visit Start Time 13:45 Visit Stop Time 14:30 Total Visit Minutes 45 Visit Number 4 Number of COMBINATION WORKER Visits 0 Precautions Precautions posterior R JOHN 07/28/21 PT-OP-B Current Condition Start: 10/04/21 16:21 Freq: Status: Active Protocol: Document 10/05/21 15:15 AW (Rec: 10/05/21 13:25 AW [id number]) Current Condition History of Current Condition Onset Date July 2021 Current Complaints decreased strength and balance s/p R JOHN posterior approach History of Current Condition Chayo had R posterior hip replacement >2 months ago, went home with home health. She had a good experience with home health and is having no significant pain. She now walks with 4WW nearly 100% of the time and can walk at least 1000 feet in <10 minutes. She does best with good ankle support. She had at least three bad falls before surgery which makes her hesitant to walk without a walker. 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 Prior Treatments and Tests Previous PT for back, hip, and knee pain Treatment Goals Patient/Caregiver Goals Pt would like to walk without assistive device. Thinks she needs to unlearn gait compensations. Current Functional Impairments (Reported) Functional Limitations- Other Difficulty walking without 4WW . Uses 4WW to be able to transport objects while cooking or doing other tasks. Personal Factors Other Personal Factors That May Effect Ovarian CA, breast CA, Therapy/Recovery hypertension, BMI 39.5 PT-OP-C Subjective Start: 10/04/21 16:21 Freq: Status: Active Protocol: Document 10/25/21 13:33 AW (Rec: 10/25/21 14:36 AW [id number]) OP-PT Subjective Patient Comments Patient Comments Soreness improved after second PT session. Chayo is using her cane more now but still likes the 4WW in the kitchen for efficiency. About a week ago, was descending stairs and tweaked the left knee which is can filling and closing machine tender. Got 2nd COVID booster last and felt the swelling was more pronounced after that. PT-OP-D Balance Start: 10/04/21 16:21 Freq: Status: Active Protocol: Document 10/05/21 15:15 AW (Rec: 10/08/21 16:40 AW [id number]) Tinetti Balance Assessment Sitting Balance Sitting Balance Steady, safe Arising from Chair Attempts to Arise Able, requires >1 attempt Standing Balance Immediate Standing Balance Steady w/o support Standing Balance Steady, wide stance Nudged Response Staggers, catches self Standing with Eyes Closed Unsteady Turning Step Pattern Turning 360 Degrees Continuous steps Stability Turning 360 Degrees Unsteady, grabs/staggers Sitting Down Sitting Down Uses arms or unsteady Gait and Step Initiation of Gait No hesitancy Right Foot Step Length Does not pass stance ft. Right Foot Step Height Completely clears floor Left Foot Step Length Does not pass stance foot Left Foot Step Height Completely clears floor Step Description Step Symmetry Step length appears equal Step Continuity Steps appear continuous Gait Description Path Description Mild/moderate deviation Trunk Description Marked sway or uses aide Walking Stance Heels together Scoring and Interpretation Tinetti Composite Score (points) 15 Interpretation of Scores High risk for falls(< 19) Tinetti Impairment Rating from Composite 40 to <60% Impaired (Score 12- Score 16) PT-OP-E Functional Tests Start: 10/04/21 16:21 Freq: Status: Active Protocol: Document 10/05/21 15:15 AW (Rec: 10/08/21 16:40 AW [id number]) Functional Tests 2 Minute Walk Test Distance 190 feet in 101 seconds Device Used 4WW Comments average gait speed 0.57 m/s PT-OP-F Manual Assessment Start: 10/04/21 16:21 Freq: Status: Active Protocol: Document 10/05/21 15:15 AW (Rec: 10/08/21 16:41 AW [id number]) Manual Assessments Soft Tissue Assessment Soft Tissue Mobility Assessment R posterior JOHN scar with fair mobility, some evidence of adhesion. PT-OP-G Mobility & Gait Start: 10/04/21 16:21 Freq: Status: Active Protocol: Document 10/05/21 15:15 AW (Rec: 10/08/21 16:40 AW [id number]) OP Mobility Evaluation Transfers Sit to Stand Requires use of UE to stand from plinth at 23 height. OP Gait Assessment Gait Gait Assistance Required: Standby Assistance Distance (Feet) 190 Assistive Devices Assistive Device 4 Wheeled Walker Orthotic/Prosthetic Devices or Brace: No Gait Deviations General Gait Pattern Antalgic,Decreased Stride Length,Decreased Feet Clearance,Flexed Trunk,Lateral Trunk Lean Comments Gait Comments Gait notable for leftward lean and decreased right foot clearance. Bilateral knee valgus apparent with L more affected than R Stair Climbing Evaluation Evaluation Level of Assist On Stairs Standby Assistance Devices Stair Climbing Assistive Devices Left Railing,Right Railing Technique/Endurance Stair Climbing Direction Ascend and Descend Stair Climbing Technique Step to Step PT-OP-K Range of Motion Start: 10/04/21 16:21 Freq: Status: Active Protocol: Document 10/05/21 15:15 AW (Rec: 10/08/21 16:51 AW [id number]) Hip Goniometric Range of Motion Hip Right Hip ROM WFL Yes Testing Position Supine Comments No restriction within precautions. End range flexion and IR not tested. PT-OP-M Strength Start: 10/04/21 16:21 Freq: Status: Active Protocol: Document 10/05/21 15:15 AW (Rec: 10/08/21 16:51 AW [id number]) Hip Strength Hip Manual Muscle Testing Left Flexion (L2) 4 Good Extension (S1) 3+ Fair+ Abduction 4 Good Right Flexion (L2) 4- Good- Extension (S1) 3+ Fair+ Abduction 4- Good- Knee Strength Knee Manual Muscle Testing Left Flexion (S2) 4+ Good+ Extension (L3) 4+ Good+ Comments Pain with all resisted movement on the left knee. Right Flexion (S2) 4 Good Extension (L3) 4+ Good+ Ankle/Foot Strength Ankle and Foot Manual Muscle Testing bilateral Dorsiflexion (L4) 4+ Good+ Plantarflexion (S1) 4 Good PT-OP-Q Treatments Start: 10/04/21 16:21 Freq: Status: Active Protocol: Document 10/25/21 13:33 AW (Rec: 10/25/21 14:36 AW [id number]) Therapeutic Exercises Supine Exercises Heel slides Supine Exercise Name Heel slides Side right Hip Abduction Supine Exercise Name jhoan wipers Side right SLR Supine Exercise Name SLR Side bilateral Sitting Exercises LAQ Sitting Exercise Name LAQ Side bilateral Resistance 5# Reps/Minutes 5SH R; no hold L 2/2 pain Hip Abduction Sitting Exercise Name Abd Side bilateral Resistance Lv 3 Hamstring curl Sitting Exercise Name HS Curl Side bilateral Resistance Lv 3 Standing Exercises Hip abduction Standing Exercise Name Hip Abduction Side bilateral Resistance Lv 2 Hip extension Standing Exercise Name Hip extension Side bilateral Resistance Lv 2 Gait Training Gait Activity SPC Description Gait training Device Used SPC Level of Assistance SBA Distance/Duration 50' x 3 PT-OP-T Assessment and Plan Start: 10/04/21 16:21 Freq: Status: Active Protocol: Document 10/25/21 13:33 AW (Rec: 10/25/21 14:36 AW [id number]) Physical Therapy Assessment Impairments Impairments Balance,Gait,Pain,Soft Tissue Mobility,Strength,Transfers Other Concerns Fall Risk high per Tinetti score of 15 Goals Five Impairment LEFS Custodial Goal (LTG) Pt will score 60/80 or greater on LEFS to demonstrate improvement in daily function. LTG Duration 10 weeks - 12/14/21 Four Impairment decreased balance Short Term Goal (STG) Pt will score 19 or higher on Tinetti. STG Duration 5 weeks - 11/09/21 Senior Windows Administrator Goal (LTG) Pt will score within age- matched norms on Dynamic Gait Index as a measure of reduced falls risk. LTG Duration 10 weeks - 12/14/21 Three Impairment BLE strength Short Term Goal (STG) Pt will rise from a 21 tall surface without use of hands STG Duration 5 weeks - 11/09/21 Custodial Goal (LTG) Pt will complete 5 Time Sit to Stand from a standard height chair without use of hands in 15 seconds or less as a measure of improved BLE strength and power. LTG Duration 10 weeks - 12/14/21 Two Impairment needs assistive device, gait speed Short Term Goal (STG) Pt will walk 1100 feet on 6MWT with SPC or LRAD as a measure of improved efficiency in gait. STG Duration 5 weeks - 11/09/21 Senior Windows Administrator Goal (LTG) Pt will walk 1200 feet or greater on 6MWT without AD as a measure of improved gait speed for safe community ambulation. LTG Duration 10 weeks - 12/14/21 One Impairment lacks HEP Short Term Goal (STG) Pt will be instructed in HEP for BLE strength and ROM within hip precautions STG Duration 5 weeks - 11/09/21 LTG Duration 10 weeks - 12/14/21 Assessment Summary Assessment Reviewed all HEP for independent performance since pt has not been seen in two weeks. Pt reports she tweaked her left knee descending stairs a week ago and still has some knee pain. With minor adjustments, pt is able to continue with HEP. Physical Therapy Plan Frequency and Duration Frequency of Treatment 2x/Week Duration of Treatment 10 weeks Plan of Care Start Date 10/05/21 Plan of Care End Date 12/14/21 Therapeutic Interventions Therapeutic Interventions Balance Training,Gait Training ,Home Exercise Program,Manual Therapy,Neuromuscular Re- education,Self-Care/Home Management,Soft Tissue Mobilization,Therapeutic Activities,Therapeutic Exercises Modalities Cold Pack/Ice Massage,Hot Packs Next Visit Focus/Plan Next Note Type Treatment Note Next Visit Plan Progress strength and balance as able. Continue gait training with SPC.
--- NOTE | 2021-10-27 14:30 | PT.OTN ---
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 She had a good experience with home health and is having no significant pain. She now walks with 4WW nearly 100% of the time and can walk at least 1000 feet in <10 minutes. She does best with good ankle support. She had at least three bad falls before surgery which makes her hesitant to walk without a walker. 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 Prior Treatments and Tests Previous PT for back, hip, and knee pain Treatment Goals Patient/Caregiver Goals Pt would like to walk without assistive device. Thinks she needs to unlearn gait compensations. Current Functional Impairments (Reported) Functional Limitations- Other Difficulty walking without 4WW . Uses 4WW to be able to transport objects while cooking or doing other tasks. Personal Factors Other Personal Factors That May Effect Ovarian CA, breast CA, Therapy/Recovery hypertension, BMI 39.5 PT-OP-C Subjective Start: 10/04/21 16:21 Freq: Status: Active Protocol: Document 10/27/21 13:52 SP (Rec: 10/27/21 14:29 SP [id number]) OP-PT Subjective Patient Comments Patient Comments Pt stated feels the swelling as gone down in ankle, knee leg over all since last tx. wants to redo today. PT-OP-D Balance Start: 10/04/21 16:21 Freq: Status: Active Protocol: Document 10/05/21 15:15 AW (Rec: 10/08/21 16:40 AW [id number]) Tinetti Balance Assessment Sitting Balance Sitting Balance Steady, safe Arising from Chair Attempts to Arise Able, requires >1 attempt Standing Balance Immediate Standing Balance Steady w/o support Standing Balance Steady, wide stance Nudged Response Staggers, catches self Standing with Eyes Closed Unsteady Turning Step Pattern Turning 360 Degrees Continuous steps Stability Turning 360 Degrees Unsteady, grabs/staggers Sitting Down Sitting Down Uses arms or unsteady Gait and Step Initiation of Gait No hesitancy Right Foot Step Length Does not pass stance ft. Right Foot Step Height Completely clears floor Left Foot Step Length Does not pass stance foot Left Foot Step Height Completely clears floor Step Description Step Symmetry Step length appears equal Step Continuity Steps appear continuous Gait Description Path Description Mild/moderate deviation Trunk Description Marked sway or uses aide Walking Stance Heels together Scoring and Interpretation Tinetti Composite Score (points) 15 Interpretation of Scores High risk for falls(< 19) Tinetti Impairment Rating from Composite 40 to <60% Impaired (Score 12- Score 16) PT-OP-E Functional Tests Start: 10/04/21 16:21 Freq: Status: Active Protocol: Document 10/05/21 15:15 AW (Rec: 10/08/21 16:40 AW [id number]) Functional Tests 2 Minute Walk Test Distance 190 feet in 101 seconds Device Used 4WW Comments average gait speed 0.57 m/s PT-OP-F Manual Assessment Start: 10/04/21 16:21 Freq: Status: Active Protocol: Document 10/05/21 15:15 AW (Rec: 10/08/21 16:41 AW [id number]) Manual Assessments Soft Tissue Assessment Soft Tissue Mobility Assessment R posterior JOHN scar with fair mobility, some evidence of adhesion. PT-OP-G Mobility & Gait Start: 10/04/21 16:21 Freq: Status: Active Protocol: Document 10/05/21 15:15 AW (Rec: 10/08/21 16:40 AW [id number]) OP Mobility Evaluation Transfers Sit to Stand Requires use of UE to stand from plinth at 23 height. OP Gait Assessment Gait Gait Assistance Required: Standby Assistance Distance (Feet) 190 Assistive Devices Assistive Device 4 Wheeled Walker Orthotic/Prosthetic Devices or Brace: No Gait Deviations General Gait Pattern Antalgic,Decreased Stride Length,Decreased Feet Clearance,Flexed Trunk,Lateral Trunk Lean Comments Gait Comments Gait notable for leftward lean and decreased right foot clearance. Bilateral knee valgus apparent with L more affected than R Stair Climbing Evaluation Evaluation Level of Assist On Stairs Standby Assistance Devices Stair Climbing Assistive Devices Left Railing,Right Railing Technique/Endurance Stair Climbing Direction Ascend and Descend Stair Climbing Technique Step to Step PT-OP-K Range of Motion Start: 10/04/21 16:21 Freq: Status: Active Protocol: Document 10/05/21 15:15 AW (Rec: 10/08/21 16:51 AW [id number]) Hip Goniometric Range of Motion Hip Right Hip ROM WFL Yes Testing Position Supine Comments No restriction within precautions. End range flexion and IR not tested. PT-OP-M Strength Start: 10/04/21 16:21 Freq: Status: Active Protocol: Document 10/05/21 15:15 AW (Rec: 10/08/21 16:51 AW [id number]) Hip Strength Hip Manual Muscle Testing Left Flexion (L2) 4 Good Extension (S1) 3+ Fair+ Abduction 4 Good Right Flexion (L2) 4- Good- Extension (S1) 3+ Fair+ Abduction 4- Good- Knee Strength Knee Manual Muscle Testing Left Flexion (S2) 4+ Good+ Extension (L3) 4+ Good+ Comments Pain with all resisted movement on the left knee. Right Flexion (S2) 4 Good Extension (L3) 4+ Good+ Ankle/Foot Strength Ankle and Foot Manual Muscle Testing bilateral Dorsiflexion (L4) 4+ Good+ Plantarflexion (S1) 4 Good PT-OP-Q Treatments Start: 10/04/21 16:21 Freq: Status: Active Protocol: Document 10/27/21 13:52 SP (Rec: 10/27/21 14:29 SP [id number]) Therapeutic Exercises Supine Exercises Hip Abduction Supine Exercise Name [facility] Side right Reps/Minutes 2x5 Comments cued quad set first, good form SLR Supine Exercise Name SLR Side bilateral Reps/Minutes 2x5 Comments cued quad set first, good TA and form Sidelying Exercises Clamshell Sidelying Exercise Name Clamshell Side right Resistance TB #2 loop Reps/Minutes 2x10 Comments good work form response. Standing Exercises band walk Standing Exercise Name added today Side bilateral Resistance Tb #2 loop gave Equipment Used 2 HR > 1 HR Reps/Minutes 15 ft x2 laps Comments cued tall posture, trail foot clearance/ stride, no SB, tired last length Hip extension Standing Exercise Name Hip extension Side bilateral Resistance Lv 2 Manual Therapy Treatment Soft Tissue Mobilization retrograde STM Body Location RLE: light prox>distal then distal>proximal LLE Mobilization Type Manual Lymphatic Drainage, Myofascial Release Intensity/Depth Superficial Body Position Hooklying Comments manual, good response, decrease swelling ankle, knee. PT-OP-T Assessment and Plan Start: 10/04/21 16:21 Freq: Status: Active Protocol: Document 10/27/21 13:52 SP (Rec: 10/27/21 14:29 SP [id number]) Physical Therapy Assessment Goals Five Impairment LEFS Senior Care Goal (LTG) Pt will score 60/80 or greater on LEFS to demonstrate improvement in daily function. LTG Duration 10 weeks - 12/14/21 Four Impairment decreased balance Short Term Goal (STG) Pt will score 19 or higher on Tinetti. STG Duration 5 weeks - 11/09/21 Statement Request Clerk Goal (LTG) Pt will score within age- matched norms on Dynamic Gait Index as a measure of reduced falls risk. LTG Duration 10 weeks - 12/14/21 Three Impairment BLE strength Short Term Goal (STG) Pt will rise from a 21 tall surface without use of hands STG Duration 5 weeks - 11/09/21 Statement Request Clerk Goal (LTG) Pt will complete 5 Time Sit to Stand from a standard height chair without use of hands in 15 seconds or less as a measure of improved BLE strength and power. LTG Duration 10 weeks - 12/14/21 Two Impairment needs assistive device, gait speed Short Term Goal (STG) Pt will walk 1100 feet on 6MWT with SPC or LRAD as a measure of improved efficiency in gait. STG Duration 5 weeks - 11/09/21 Senior Care Goal (LTG) Pt will walk 1200 feet or greater on 6MWT without AD as a measure of improved gait speed for safe community ambulation. LTG Duration 10 weeks - 12/14/21 One Impairment lacks HEP Short Term Goal (STG) Pt will be instructed in HEP for BLE strength and ROM within hip precautions STG Duration 5 weeks - 11/09/21 LTG Duration 10 weeks - 12/14/21 Assessment Summary Assessment Pt responded well to HEP supine, stand, requires rest bwtn sets for tiring recovery. States painfree just tiring. Physical Therapy Plan Frequency and Duration Frequency of Treatment 2x/Week Duration of Treatment 10 weeks Plan of Care Start Date 10/05/21 Plan of Care End Date 12/14/21 Therapeutic Interventions Therapeutic Interventions Balance Training,Gait Training ,Home Exercise Program,Manual Therapy,Neuromuscular Re- education,Self-Care/Home Management,Soft Tissue Mobilization,Therapeutic Activities,Therapeutic Exercises Modalities Cold Pack/Ice Massage,Hot Packs Next Visit Focus/Plan Next Note Type Treatment Note Next Visit Plan Progress strength and balance as able. Continue gait training with SPC.
--- NOTE | 2021-11-01 13:49 | PT.OTN ---
Current Diagnoses Difficulty in walking, not elsewhere classified (11/01/21) Other symptoms and signs involving the musculoskeletal system (11/01/21) Presence of right artificial hip joint (11/01/21) Physical Therapy Treatment Note PT-OP-A Visit Information Start: 10/04/21 16:21 Freq: Status: Active Protocol: Document 11/01/21 12:59 [facility] (Rec: 11/01/21 13:49 [facility] [id number]) Out-Patient Physical Therapy Visit Information Visit Information Visit Type Treatment Note Visit Start Time 13:00 Visit Stop Time 13:41 Total Visit Minutes 41 Visit Number 6 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 She had a good experience with home health and is having no significant pain. She now walks with 4WW nearly 100% of the time and can walk at least 1000 feet in <10 minutes. She does best with good ankle support. She had at least three bad falls before surgery which makes her hesitant to walk without a walker. 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 Prior Treatments and Tests Previous PT for back, hip, and knee pain Treatment Goals Patient/Caregiver Goals Pt would like to walk without assistive device. Thinks she needs to unlearn gait compensations. Current Functional Impairments (Reported) Functional Limitations- Other Difficulty walking without 4WW . Uses 4WW to be able to transport objects while cooking or doing other tasks. Personal Factors Other Personal Factors That May Effect Ovarian CA, breast CA, Therapy/Recovery hypertension, BMI 39.5 PT-OP-C Subjective Start: 10/04/21 16:21 Freq: Status: Active Protocol: Document 11/01/21 12:59 [facility] (Rec: 11/01/21 13:49 [facility] [id number]) OP-PT Subjective Patient Comments Patient Comments Pt reports she saw hsantal yesterday who did chest xray and lab work d/t concern for CHF but everything looked ok except potassium. TOld to wear compression socks but cannot put on herself. PT-OP-D Balance Start: 10/04/21 16:21 Freq: Status: Active Protocol: Document 10/05/21 15:15 AW (Rec: 10/08/21 16:40 AW [id number]) Tinetti Balance Assessment Sitting Balance Sitting Balance Steady, safe Arising from Chair Attempts to Arise Able, requires >1 attempt Standing Balance Immediate Standing Balance Steady w/o support Standing Balance Steady, wide stance Nudged Response Staggers, catches self Standing with Eyes Closed Unsteady Turning Step Pattern Turning 360 Degrees Continuous steps Stability Turning 360 Degrees Unsteady, grabs/staggers Sitting Down Sitting Down Uses arms or unsteady Gait and Step Initiation of Gait No hesitancy Right Foot Step Length Does not pass stance ft. Right Foot Step Height Completely clears floor Left Foot Step Length Does not pass stance foot Left Foot Step Height Completely clears floor Step Description Step Symmetry Step length appears equal Step Continuity Steps appear continuous Gait Description Path Description Mild/moderate deviation Trunk Description Marked sway or uses aide Walking Stance Heels together Scoring and Interpretation Tinetti Composite Score (points) 15 Interpretation of Scores High risk for falls(< 19) Tinetti Impairment Rating from Composite 40 to <60% Impaired (Score 12- Score 16) PT-OP-E Functional Tests Start: 10/04/21 16:21 Freq: Status: Active Protocol: Document 10/05/21 15:15 AW (Rec: 10/08/21 16:40 AW [id number]) Functional Tests 2 Minute Walk Test Distance 190 feet in 101 seconds Device Used 4WW Comments average gait speed 0.57 m/s PT-OP-F Manual Assessment Start: 10/04/21 16:21 Freq: Status: Active Protocol: Document 10/05/21 15:15 AW (Rec: 10/08/21 16:41 AW [id number]) Manual Assessments Soft Tissue Assessment Soft Tissue Mobility Assessment R posterior JOHN scar with fair mobility, some evidence of adhesion. PT-OP-G Mobility & Gait Start: 10/04/21 16:21 Freq: Status: Active Protocol: Document 10/05/21 15:15 AW (Rec: 10/08/21 16:40 AW [id number]) OP Mobility Evaluation Transfers Sit to Stand Requires use of UE to stand from plinth at 23 height. OP Gait Assessment Gait Gait Assistance Required: Standby Assistance Distance (Feet) 190 Assistive Devices Assistive Device 4 Wheeled Walker Orthotic/Prosthetic Devices or Brace: No Gait Deviations General Gait Pattern Antalgic,Decreased Stride Length,Decreased Feet Clearance,Flexed Trunk,Lateral Trunk Lean Comments Gait Comments Gait notable for leftward lean and decreased right foot clearance. Bilateral knee valgus apparent with L more affected than R Stair Climbing Evaluation Evaluation Level of Assist On Stairs Standby Assistance Devices Stair Climbing Assistive Devices Left Railing,Right Railing Technique/Endurance Stair Climbing Direction Ascend and Descend Stair Climbing Technique Step to Step PT-OP-K Range of Motion Start: 10/04/21 16:21 Freq: Status: Active Protocol: Document 10/05/21 15:15 AW (Rec: 10/08/21 16:51 AW [id number]) Hip Goniometric Range of Motion Hip Right Hip ROM WFL Yes Testing Position Supine Comments No restriction within precautions. End range flexion and IR not tested. PT-OP-M Strength Start: 10/04/21 16:21 Freq: Status: Active Protocol: Document 10/05/21 15:15 AW (Rec: 10/08/21 16:51 AW [id number]) Hip Strength Hip Manual Muscle Testing Left Flexion (L2) 4 Good Extension (S1) 3+ Fair+ Abduction 4 Good Right Flexion (L2) 4- Good- Extension (S1) 3+ Fair+ Abduction 4- Good- Knee Strength Knee Manual Muscle Testing Left Flexion (S2) 4+ Good+ Extension (L3) 4+ Good+ Comments Pain with all resisted movement on the left knee. Right Flexion (S2) 4 Good Extension (L3) 4+ Good+ Ankle/Foot Strength Ankle and Foot Manual Muscle Testing bilateral Dorsiflexion (L4) 4+ Good+ Plantarflexion (S1) 4 Good PT-OP-Q Treatments Start: 10/04/21 16:21 Freq: Status: Active Protocol: Document 11/01/21 12:59 [facility] (Rec: 11/01/21 13:49 [facility] [id number]) Therapeutic Exercises Sidelying Exercises Clamshell Sidelying Exercise Name Clamshell Side bilateral Reps/Minutes 2x10 Comments good work form response.- required cues for R Standing Exercises heel raises Side bilateral Reps/Minutes 15 band walk Standing Exercise Name added today; lat step Side bilateral Resistance Tb #2 loop gave Equipment Used 2 HR > 1 HR Reps/Minutes 20 ft ea Comments cued tall posture, trail foot clearance/ stride, no SB, no ER LLE Gait Training Gait Activity wt shifts Comments 1. fwd w/ cane work on wt acceptance 2. fwd w/step thru w/cane for wt acceptance 3. fwd wt shift w/walker w/ step through 20ft Stairs Comments 1. 4 in step step up R x10 2. reciprocal up/down 1x 4 in steps Manual Therapy Treatment Soft Tissue Mobilization retrograde STM Body Location BLE prox to distal Mobilization Type Myofascial Release,Rolling Intensity/Depth Superficial Body Position Hooklying Comments manual, good response, decrease swelling ankle, knee. PT-OP-T Assessment and Plan Start: 10/04/21 16:21 Freq: Status: Active Protocol: Document 11/01/21 12:59 [facility] (Rec: 11/01/21 13:49 [facility] [id number]) Physical Therapy Assessment Goals Five Impairment LEFS Antenna Installer Goal (LTG) Pt will score 60/80 or greater on LEFS to demonstrate improvement in daily function. LTG Duration 10 weeks - 12/14/21 Four Impairment decreased balance Short Term Goal (STG) Pt will score 19 or higher on Tinetti. STG Duration 5 weeks - 11/09/21 Antenna Installer Goal (LTG) Pt will score within age- matched norms on Dynamic Gait Index as a measure of reduced falls risk. LTG Duration 10 weeks - 12/14/21 Three Impairment BLE strength Short Term Goal (STG) Pt will rise from a 21 tall surface without use of hands STG Duration 5 weeks - 11/09/21 Nursing Home Goal (LTG) Pt will complete 5 Time Sit to Stand from a standard height chair without use of hands in 15 seconds or less as a measure of improved BLE strength and power. LTG Duration 10 weeks - 12/14/21 Two Impairment needs assistive device, gait speed Short Term Goal (STG) Pt will walk 1100 feet on 6MWT with SPC or LRAD as a measure of improved efficiency in gait. STG Duration 5 weeks - 11/09/21 Antenna Installer Goal (LTG) Pt will walk 1200 feet or greater on 6MWT without AD as a measure of improved gait speed for safe community ambulation. LTG Duration 10 weeks - 12/14/21 One Impairment lacks HEP Short Term Goal (STG) Pt will be instructed in HEP for BLE strength and ROM within hip precautions STG Duration 5 weeks - 11/09/21 LTG Duration 10 weeks - 12/14/21 Assessment Summary Assessment Pt has signficiant hip weakness making cane amb difficult w/o lat leaning. She was abl to do s/l clams but w /o resistance on R Physical Therapy Plan Frequency and Duration Frequency of Treatment 2x/Week Duration of Treatment 10 weeks Plan of Care Start Date 10/05/21 Plan of Care End Date 12/14/21 Next Visit Focus/Plan Next Note Type Treatment Note Next Visit Plan Progress strength and balance as able. Continue gait training with SPC.
--- NOTE | 2021-11-07 15:17 | PT.OTN ---
Current Diagnoses Difficulty in walking, not elsewhere classified (11/07/21) Other symptoms and signs involving the musculoskeletal system (11/07/21) Presence of right artificial hip joint (11/07/21) Physical Therapy Treatment Note PT-OP-A Visit Information Start: 10/04/21 16:21 Freq: Status: Active Protocol: Document 11/07/21 14:37 SP (Rec: 11/07/21 15:41 SP [id number]) Out-Patient Physical Therapy Visit Information Visit Information Visit Type Treatment Note Visit Start Time 14:37 Visit Stop Time 15:17 Total Visit Minutes 40 Visit Number 7 Number of AIRPORT OPERATIONS COORDINATOR Visits 1 Precautions Precautions posterior R JOHN 07/28/21 PT-OP-B Current Condition Start: 10/04/21 16:21 Freq: Status: Active Protocol: Document 10/05/21 15:15 AW (Rec: 10/05/21 13:25 AW [id number]) Current Condition History of Current Condition Onset Date July 2021 Current Complaints decreased strength and balance s/p R JOHN posterior approach History of Current Condition Chayo had R posterior hip replacement >2 months ago, went home with home health. She had a good experience with home health and is having no significant pain. She now walks with 4WW nearly 100% of the time and can walk at least 1000 feet in <10 minutes. She does best with good ankle support. She had at least three bad falls before surgery which makes her hesitant to walk without a walker. 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 Prior Treatments and Tests Previous PT for back, hip, and knee pain Treatment Goals Patient/Caregiver Goals Pt would like to walk without assistive device. Thinks she needs to unlearn gait compensations. Current Functional Impairments (Reported) Functional Limitations- Other Difficulty walking without 4WW . Uses 4WW to be able to transport objects while cooking or doing other tasks. Personal Factors Other Personal Factors That May Effect Ovarian CA, breast CA, Therapy/Recovery hypertension, BMI 39.5 PT-OP-C Subjective Start: 10/04/21 16:21 Freq: Status: Active Protocol: Document 11/07/21 14:37 SP (Rec: 11/07/21 15:41 SP [id number]) OP-PT Subjective Patient Comments Patient Comments Pt arrived using FWW, reported L knee pain over weekend walked around alot out of town w/ FWW. Had to manage 1 PF step in/out motel w/ FWW. PT-OP-D Balance Start: 10/04/21 16:21 Freq: Status: Active Protocol: Document 10/05/21 15:15 AW (Rec: 10/08/21 16:40 AW [id number]) Tinetti Balance Assessment Sitting Balance Sitting Balance Steady, safe Arising from Chair Attempts to Arise Able, requires >1 attempt Standing Balance Immediate Standing Balance Steady w/o support Standing Balance Steady, wide stance Nudged Response Staggers, catches self Standing with Eyes Closed Unsteady Turning Step Pattern Turning 360 Degrees Continuous steps Stability Turning 360 Degrees Unsteady, grabs/staggers Sitting Down Sitting Down Uses arms or unsteady Gait and Step Initiation of Gait No hesitancy Right Foot Step Length Does not pass stance ft. Right Foot Step Height Completely clears floor Left Foot Step Length Does not pass stance foot Left Foot Step Height Completely clears floor Step Description Step Symmetry Step length appears equal Step Continuity Steps appear continuous Gait Description Path Description Mild/moderate deviation Trunk Description Marked sway or uses aide Walking Stance Heels together Scoring and Interpretation Tinetti Composite Score (points) 15 Interpretation of Scores High risk for falls(< 19) Tinetti Impairment Rating from Composite 40 to <60% Impaired (Score 12- Score 16) PT-OP-E Functional Tests Start: 10/04/21 16:21 Freq: Status: Active Protocol: Document 10/05/21 15:15 AW (Rec: 10/08/21 16:40 AW [id number]) Functional Tests 2 Minute Walk Test Distance 190 feet in 101 seconds Device Used 4WW Comments average gait speed 0.57 m/s PT-OP-F Manual Assessment Start: 10/04/21 16:21 Freq: Status: Active Protocol: Document 10/05/21 15:15 AW (Rec: 10/08/21 16:41 AW [id number]) Manual Assessments Soft Tissue Assessment Soft Tissue Mobility Assessment R posterior JOHN scar with fair mobility, some evidence of adhesion. PT-OP-G Mobility & Gait Start: 10/04/21 16:21 Freq: Status: Active Protocol: Document 10/05/21 15:15 AW (Rec: 10/08/21 16:40 AW [id number]) OP Mobility Evaluation Transfers Sit to Stand Requires use of UE to stand from plinth at 23 height. OP Gait Assessment Gait Gait Assistance Required: Standby Assistance Distance (Feet) 190 Assistive Devices Assistive Device 4 Wheeled Walker Orthotic/Prosthetic Devices or Brace: No Gait Deviations General Gait Pattern Antalgic,Decreased Stride Length,Decreased Feet Clearance,Flexed Trunk,Lateral Trunk Lean Comments Gait Comments Gait notable for leftward lean and decreased right foot clearance. Bilateral knee valgus apparent with L more affected than R Stair Climbing Evaluation Evaluation Level of Assist On Stairs Standby Assistance Devices Stair Climbing Assistive Devices Left Railing,Right Railing Technique/Endurance Stair Climbing Direction Ascend and Descend Stair Climbing Technique Step to Step PT-OP-K Range of Motion Start: 10/04/21 16:21 Freq: Status: Active Protocol: Document 10/05/21 15:15 AW (Rec: 10/08/21 16:51 AW [id number]) Hip Goniometric Range of Motion Hip Right Hip ROM WFL Yes Testing Position Supine Comments No restriction within precautions. End range flexion and IR not tested. PT-OP-M Strength Start: 10/04/21 16:21 Freq: Status: Active Protocol: Document 10/05/21 15:15 AW (Rec: 10/08/21 16:51 AW [id number]) Hip Strength Hip Manual Muscle Testing Left Flexion (L2) 4 Good Extension (S1) 3+ Fair+ Abduction 4 Good Right Flexion (L2) 4- Good- Extension (S1) 3+ Fair+ Abduction 4- Good- Knee Strength Knee Manual Muscle Testing Left Flexion (S2) 4+ Good+ Extension (L3) 4+ Good+ Comments Pain with all resisted movement on the left knee. Right Flexion (S2) 4 Good Extension (L3) 4+ Good+ Ankle/Foot Strength Ankle and Foot Manual Muscle Testing bilateral Dorsiflexion (L4) 4+ Good+ Plantarflexion (S1) 4 Good PT-OP-Q Treatments Start: 10/04/21 16:21 Freq: Status: Active Protocol: Document 11/07/21 14:37 SP (Rec: 11/07/21 15:41 SP [id number]) Gym Equipment Shuttle Recovery Unilateral Squats Details occasional cue knee with toes (L knee IR/ABD align) Resistance 25 Shuttle Recovery Platform Stable Reps/Time x20 Bilateral Squats Details Mod cues knees Resistance 50 Shuttle Recovery Platform Stable Reps/Time x20 Therapeutic Exercises Supine Exercises Heel slides Supine Exercise Name knee flexion over 55cm tball Side right Resistance TB #1 (therapist anchor) Reps/Minutes 2x5 Comments painfree SLR Supine Exercise Name SLR Side left Reps/Minutes 2x5 Comments cued quad set first, good TA and form Sidelying Exercises Clamshell Sidelying Exercise Name Clamshell Side bilateral Equipment Used discussed but not performed today 11/07/21- told do at home later Reps/Minutes 2x10 Comments good work form response.- required cues for R Sitting Exercises hip abd Sitting Exercise Name added to HEP Side bilateral Resistance TB #3 (hold straight band at side thighs after tie) Reps/Minutes 2x10 Comments good form after shown. Standing Exercises band walk Standing Exercise Name reviewed: lat stepping Side bilateral Resistance AROM Equipment Used 2 HR Reps/Minutes 10 ft x1.5 laps Comments cued tall posture over stance LE, L>R hip ER, clear trail LE - improved qual Gait Training Gait Activity FWW Description wt shift, knee alignment, forward quality form- challenged maintain Device Used FWW Level of Assistance S Surface firm Distance/Duration 20 ft x2 laps Treatment Focus L>R knee/ hip ER alignment with toes Comments improved understanding but difficult, better performance side stepping at rail. Manual Therapy Treatment Soft Tissue Mobilization retrograde STM Body Location L quad, patella tendon, VMO Mobilization Type Myofascial Release Intensity/Depth Superficial Body Position Hooklying Comments manual, good response, decrease swelling L knee. PT-OP-T Assessment and Plan Start: 10/04/21 16:21 Freq: Status: Active Protocol: Document 11/07/21 14:37 SP (Rec: 11/07/21 15:41 SP [id number]) Physical Therapy Assessment Goals Five Impairment LEFS Credit Union Teller Goal (LTG) Pt will score 60/80 or greater on LEFS to demonstrate improvement in daily function. LTG Duration 10 weeks - 12/14/21 Four Impairment decreased balance Short Term Goal (STG) Pt will score 19 or higher on Tinetti. STG Duration 5 weeks - 11/09/21 Nursing Home Goal (LTG) Pt will score within age- matched norms on Dynamic Gait Index as a measure of reduced falls risk. LTG Duration 10 weeks - 12/14/21 Three Impairment BLE strength Short Term Goal (STG) Pt will rise from a 21 tall surface without use of hands STG Duration 5 weeks - 11/09/21 Nursing Home Goal (LTG) Pt will complete 5 Time Sit to Stand from a standard height chair without use of hands in 15 seconds or less as a measure of improved BLE strength and power. LTG Duration 10 weeks - 12/14/21 Two Impairment needs assistive device, gait speed Short Term Goal (STG) Pt will walk 1100 feet on 6MWT with SPC or LRAD as a measure of improved efficiency in gait. STG Duration 5 weeks - 11/09/21 Credit Union Teller Goal (LTG) Pt will walk 1200 feet or greater on 6MWT without AD as a measure of improved gait speed for safe community ambulation. LTG Duration 10 weeks - 12/14/21 One Impairment lacks HEP Short Term Goal (STG) Pt will be instructed in HEP for BLE strength and ROM within hip precautions STG Duration 5 weeks - 11/09/21 LTG Duration 10 weeks - 12/14/21 Assessment Summary Assessment Pt challenged with L>R knee alignment during gait today. Less pain reported post manual , ther ex focused on hip abd alignement and strengthening. Improved self correction with lateral contact maintain during shuttle recovery and lateral side stepping with cues. Added seated clamshell TB #3 and continue clamshell AROM on side for home support. Pt stated less knee pain leaving today than when arrived. Physical Therapy Plan Frequency and Duration Frequency of Treatment 2x/Week Duration of Treatment 10 weeks Plan of Care Start Date 10/05/21 Plan of Care End Date 12/14/21 Therapeutic Interventions Therapeutic Interventions Balance Training,Gait Training ,Home Exercise Program,Manual Therapy,Neuromuscular Re- education,Self-Care/Home Management,Soft Tissue Mobilization,Therapeutic Activities,Therapeutic Exercises Modalities Cold Pack/Ice Massage,Hot Packs Next Visit Focus/Plan Next Note Type Treatment Note Next Visit Plan Recheck: side clamshell, seated hip abd TB, lateral side stepping, add STS. POC: Progress strength and balance as able. Continue gait training with SPC.
--- NOTE | 2021-11-15 13:47 | PT.OTN ---
Current Diagnoses Difficulty in walking, not elsewhere classified (11/15/21) Other symptoms and signs involving the musculoskeletal system (11/15/21) Presence of right artificial hip joint (11/15/21) Physical Therapy Treatment Note PT-OP-A Visit Information Start: 10/04/21 16:21 Freq: Status: Active Protocol: Document 11/15/21 12:56 AW (Rec: 11/15/21 13:47 AW [id number]) Out-Patient Physical Therapy Visit Information Visit Information Visit Type Treatment Note Visit Start Time 13:00 Visit Stop Time 13:45 Total Visit Minutes 45 Visit Number 8 Number of [employer] INVESTIGATOR Visits 0 Precautions Precautions posterior R JOHN 07/28/21 PT-OP-B Current Condition Start: 10/04/21 16:21 Freq: Status: Active Protocol: Document 10/05/21 15:15 AW (Rec: 10/05/21 13:25 AW [id number]) Current Condition History of Current Condition Onset Date July 2021 Current Complaints decreased strength and balance s/p R JOHN posterior approach History of Current Condition Chayo had R posterior hip replacement >2 months ago, went home with home health. She had a good experience with home health and is having no significant pain. She now walks with 4WW nearly 100% of the time and can walk at least 1000 feet in <10 minutes. She does best with good ankle support. She had at least three bad falls before surgery which makes her hesitant to walk without a walker. 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 Prior Treatments and Tests Previous PT for back, hip, and knee pain Treatment Goals Patient/Caregiver Goals Pt would like to walk without assistive device. Thinks she needs to unlearn gait compensations. Current Functional Impairments (Reported) Functional Limitations- Other Difficulty walking without 4WW . Uses 4WW to be able to transport objects while cooking or doing other tasks. Personal Factors Other Personal Factors That May Effect Ovarian CA, breast CA, Therapy/Recovery hypertension, BMI 39.5 PT-OP-C Subjective Start: 10/04/21 16:21 Freq: Status: Active Protocol: Document 11/15/21 12:56 AW (Rec: 11/15/21 13:47 AW [id number]) OP-PT Subjective Patient Comments Patient Comments This walker is starting to feel cumbersome. PT-OP-D Balance Start: 10/04/21 16:21 Freq: Status: Active Protocol: Document 10/05/21 15:15 AW (Rec: 10/08/21 16:40 AW [id number]) Tinetti Balance Assessment Sitting Balance Sitting Balance Steady, safe Arising from Chair Attempts to Arise Able, requires >1 attempt Standing Balance Immediate Standing Balance Steady w/o support Standing Balance Steady, wide stance Nudged Response Staggers, catches self Standing with Eyes Closed Unsteady Turning Step Pattern Turning 360 Degrees Continuous steps Stability Turning 360 Degrees Unsteady, grabs/staggers Sitting Down Sitting Down Uses arms or unsteady Gait and Step Initiation of Gait No hesitancy Right Foot Step Length Does not pass stance ft. Right Foot Step Height Completely clears floor Left Foot Step Length Does not pass stance foot Left Foot Step Height Completely clears floor Step Description Step Symmetry Step length appears equal Step Continuity Steps appear continuous Gait Description Path Description Mild/moderate deviation Trunk Description Marked sway or uses aide Walking Stance Heels together Scoring and Interpretation Tinetti Composite Score (points) 15 Interpretation of Scores High risk for falls(< 19) Tinetti Impairment Rating from Composite 40 to <60% Impaired (Score 12- Score 16) PT-OP-E Functional Tests Start: 10/04/21 16:21 Freq: Status: Active Protocol: Document 10/05/21 15:15 AW (Rec: 10/08/21 16:40 AW [id number]) Functional Tests 2 Minute Walk Test Distance 190 feet in 101 seconds Device Used 4WW Comments average gait speed 0.57 m/s PT-OP-F Manual Assessment Start: 10/04/21 16:21 Freq: Status: Active Protocol: Document 10/05/21 15:15 AW (Rec: 10/08/21 16:41 AW [id number]) Manual Assessments Soft Tissue Assessment Soft Tissue Mobility Assessment R posterior JOHN scar with fair mobility, some evidence of adhesion. PT-OP-G Mobility & Gait Start: 10/04/21 16:21 Freq: Status: Active Protocol: Document 10/05/21 15:15 AW (Rec: 10/08/21 16:40 AW [id number]) OP Mobility Evaluation Transfers Sit to Stand Requires use of UE to stand from plinth at 23 height. OP Gait Assessment Gait Gait Assistance Required: Standby Assistance Distance (Feet) 190 Assistive Devices Assistive Device 4 Wheeled Walker Orthotic/Prosthetic Devices or Brace: No Gait Deviations General Gait Pattern Antalgic,Decreased Stride Length,Decreased Feet Clearance,Flexed Trunk,Lateral Trunk Lean Comments Gait Comments Gait notable for leftward lean and decreased right foot clearance. Bilateral knee valgus apparent with L more affected than R Stair Climbing Evaluation Evaluation Level of Assist On Stairs Standby Assistance Devices Stair Climbing Assistive Devices Left Railing,Right Railing Technique/Endurance Stair Climbing Direction Ascend and Descend Stair Climbing Technique Step to Step PT-OP-K Range of Motion Start: 10/04/21 16:21 Freq: Status: Active Protocol: Document 10/05/21 15:15 AW (Rec: 10/08/21 16:51 AW [id number]) Hip Goniometric Range of Motion Hip Right Hip ROM WFL Yes Testing Position Supine Comments No restriction within precautions. End range flexion and IR not tested. PT-OP-M Strength Start: 10/04/21 16:21 Freq: Status: Active Protocol: Document 10/05/21 15:15 AW (Rec: 10/08/21 16:51 AW [id number]) Hip Strength Hip Manual Muscle Testing Left Flexion (L2) 4 Good Extension (S1) 3+ Fair+ Abduction 4 Good Right Flexion (L2) 4- Good- Extension (S1) 3+ Fair+ Abduction 4- Good- Knee Strength Knee Manual Muscle Testing Left Flexion (S2) 4+ Good+ Extension (L3) 4+ Good+ Comments Pain with all resisted movement on the left knee. Right Flexion (S2) 4 Good Extension (L3) 4+ Good+ Ankle/Foot Strength Ankle and Foot Manual Muscle Testing bilateral Dorsiflexion (L4) 4+ Good+ Plantarflexion (S1) 4 Good PT-OP-Q Treatments Start: 10/04/21 16:21 Freq: Status: Active Protocol: Document 11/15/21 12:56 AW (Rec: 11/15/21 13:47 AW [id number]) Gym Equipment Shuttle Recovery Unilateral Squats Details occasional cue knee with toes (L knee IR/ABD align) Resistance 25 Shuttle Recovery Platform Stable Reps/Time x20 Bilateral Squats Details min cues knees Resistance 50 Shuttle Recovery Platform Stable Reps/Time 2x20 Therapeutic Exercises Standing Exercises heel raises Side bilateral Reps/Minutes 15 band walk Standing Exercise Name reviewed: lat stepping Side bilateral Resistance TB2 above knees Equipment Used 2 HR Reps/Minutes 10 ft x1.5 laps Comments cued tall posture over stance LE, L>R hip ER, clear trail LE - improved qual Other Exercises sit to stand Other Exercise Name sit to stand Equipment Used mesh chair + blue foam Comments heavy cues for anterior weight shift, min use of handsf Gait Training Gait Activity wt shifts Comments 1. fwd w/ cane work on wt acceptance, forward translation 2. fwd w/step thru w/cane for wt acceptance Neuro Re-Education Treatment Balance Activities NBOS Details NBOS Surface Blue Foam Comments -EO -EC -head turns/nods PT-OP-T Assessment and Plan Start: 10/04/21 16:21 Freq: Status: Active Protocol: Document 11/15/21 12:56 AW (Rec: 11/15/21 13:47 AW [id number]) Physical Therapy Assessment Goals Five Impairment LEFS Hearing Instrument Specialist Goal (LTG) Pt will score 60/80 or greater on LEFS to demonstrate improvement in daily function. LTG Duration 10 weeks - 12/14/21 Four Impairment decreased balance Short Term Goal (STG) Pt will score 19 or higher on Tinetti. STG Duration 5 weeks - 11/09/21 Halfway Goal (LTG) Pt will score within age- matched norms on Dynamic Gait Index as a measure of reduced falls risk. LTG Duration 10 weeks - 12/14/21 Three Impairment BLE strength Short Term Goal (STG) Pt will rise from a 21 tall surface without use of hands STG Duration 5 weeks - 11/09/21 Hearing Instrument Specialist Goal (LTG) Pt will complete 5 Time Sit to Stand from a standard height chair without use of hands in 15 seconds or less as a measure of improved BLE strength and power. LTG Duration 10 weeks - 12/14/21 Two Impairment needs assistive device, gait speed Short Term Goal (STG) Pt will walk 1100 feet on 6MWT with SPC or LRAD as a measure of improved efficiency in gait. STG Duration 5 weeks - 11/09/21 Hearing Instrument Specialist Goal (LTG) Pt will walk 1200 feet or greater on 6MWT without AD as a measure of improved gait speed for safe community ambulation. LTG Duration 10 weeks - 12/14/21 One Impairment lacks HEP Short Term Goal (STG) Pt will be instructed in HEP for BLE strength and ROM within hip precautions STG Duration 5 weeks - 11/09/21 LTG Duration 10 weeks - 12/14/21 Assessment Summary Assessment Left knee pain and poor alignment are significant barriers to normalized gait pattern. Pt states she is now able to stand longer time in the kitchen and has been able to prepare dinners. Physical Therapy Plan Frequency and Duration Frequency of Treatment 2x/Week Duration of Treatment 10 weeks Plan of Care Start Date 10/05/21 Plan of Care End Date 12/14/21 Therapeutic Interventions Therapeutic Interventions Balance Training,Gait Training ,Home Exercise Program,Manual Therapy,Neuromuscular Re- education,Self-Care/Home Management,Soft Tissue Mobilization,Therapeutic Activities,Therapeutic Exercises Modalities Cold Pack/Ice Massage,Hot Packs Next Visit Focus/Plan Next Note Type Treatment Note Next Visit Plan Recheck: side clamshell, seated hip abd TB, lateral side stepping, add STS. POC: Progress strength and balance as able. Continue gait training with SPC.
--- NOTE | 2021-11-17 13:47 | PT.OTN ---
Current Diagnoses Difficulty in walking, not elsewhere classified (11/17/21) Other symptoms and signs involving the musculoskeletal system (11/17/21) Presence of right artificial hip joint (11/17/21) Physical Therapy Treatment Note PT-OP-A Visit Information Start: 10/04/21 16:21 Freq: Status: Active Protocol: Document 11/17/21 13:04 SP (Rec: 11/17/21 13:48 SP [id number]) Out-Patient Physical Therapy Visit Information Visit Information Visit Type Treatment Note Visit Start Time 13:04 Visit Stop Time 13:47 Total Visit Minutes 43 Visit Number 9 Number of BARK SPUDDER Visits 1 Precautions Precautions posterior R JOHN 07/28/21 PT-OP-B Current Condition Start: 10/04/21 16:21 Freq: Status: Active Protocol: Document 10/05/21 15:15 AW (Rec: 10/05/21 13:25 AW [id number]) Current Condition History of Current Condition Onset Date July 2021 Current Complaints decreased strength and balance s/p R JOHN posterior approach History of Current Condition Chayo had R posterior hip replacement >2 months ago, went home with home health. She had a good experience with home health and is having no significant pain. She now walks with 4WW nearly 100% of the time and can walk at least 1000 feet in <10 minutes. She does best with good ankle support. She had at least three bad falls before surgery which makes her hesitant to walk without a walker. 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 Prior Treatments and Tests Previous PT for back, hip, and knee pain Treatment Goals Patient/Caregiver Goals Pt would like to walk without assistive device. Thinks she needs to unlearn gait compensations. Current Functional Impairments (Reported) Functional Limitations- Other Difficulty walking without 4WW . Uses 4WW to be able to transport objects while cooking or doing other tasks. Personal Factors Other Personal Factors That May Effect Ovarian CA, breast CA, Therapy/Recovery hypertension, BMI 39.5 PT-OP-C Subjective Start: 10/04/21 16:21 Freq: Status: Active Protocol: Document 11/17/21 13:04 SP (Rec: 11/17/21 13:48 SP [id number]) OP-PT Subjective Patient Comments Patient Comments Pt reports L knee still bothersome. She stated was able to descend with stronger LE not thinking and did ok, not as apprehensive now. PT-OP-D Balance Start: 10/04/21 16:21 Freq: Status: Active Protocol: Document 10/05/21 15:15 AW (Rec: 10/08/21 16:40 AW [id number]) Tinetti Balance Assessment Sitting Balance Sitting Balance Steady, safe Arising from Chair Attempts to Arise Able, requires >1 attempt Standing Balance Immediate Standing Balance Steady w/o support Standing Balance Steady, wide stance Nudged Response Staggers, catches self Standing with Eyes Closed Unsteady Turning Step Pattern Turning 360 Degrees Continuous steps Stability Turning 360 Degrees Unsteady, grabs/staggers Sitting Down Sitting Down Uses arms or unsteady Gait and Step Initiation of Gait No hesitancy Right Foot Step Length Does not pass stance ft. Right Foot Step Height Completely clears floor Left Foot Step Length Does not pass stance foot Left Foot Step Height Completely clears floor Step Description Step Symmetry Step length appears equal Step Continuity Steps appear continuous Gait Description Path Description Mild/moderate deviation Trunk Description Marked sway or uses aide Walking Stance Heels together Scoring and Interpretation Tinetti Composite Score (points) 15 Interpretation of Scores High risk for falls(< 19) Tinetti Impairment Rating from Composite 40 to <60% Impaired (Score 12- Score 16) PT-OP-E Functional Tests Start: 10/04/21 16:21 Freq: Status: Active Protocol: Document 10/05/21 15:15 AW (Rec: 10/08/21 16:40 AW [id number]) Functional Tests 2 Minute Walk Test Distance 190 feet in 101 seconds Device Used 4WW Comments average gait speed 0.57 m/s PT-OP-F Manual Assessment Start: 10/04/21 16:21 Freq: Status: Active Protocol: Document 10/05/21 15:15 AW (Rec: 10/08/21 16:41 AW [id number]) Manual Assessments Soft Tissue Assessment Soft Tissue Mobility Assessment R posterior JOHN scar with fair mobility, some evidence of adhesion. PT-OP-G Mobility & Gait Start: 10/04/21 16:21 Freq: Status: Active Protocol: Document 10/05/21 15:15 AW (Rec: 10/08/21 16:40 AW [id number]) OP Mobility Evaluation Transfers Sit to Stand Requires use of UE to stand from plinth at 23 height. OP Gait Assessment Gait Gait Assistance Required: Standby Assistance Distance (Feet) 190 Assistive Devices Assistive Device 4 Wheeled Walker Orthotic/Prosthetic Devices or Brace: No Gait Deviations General Gait Pattern Antalgic,Decreased Stride Length,Decreased Feet Clearance,Flexed Trunk,Lateral Trunk Lean Comments Gait Comments Gait notable for leftward lean and decreased right foot clearance. Bilateral knee valgus apparent with L more affected than R Stair Climbing Evaluation Evaluation Level of Assist On Stairs Standby Assistance Devices Stair Climbing Assistive Devices Left Railing,Right Railing Technique/Endurance Stair Climbing Direction Ascend and Descend Stair Climbing Technique Step to Step PT-OP-K Range of Motion Start: 10/04/21 16:21 Freq: Status: Active Protocol: Document 10/05/21 15:15 AW (Rec: 10/08/21 16:51 AW [id number]) Hip Goniometric Range of Motion Hip Right Hip ROM WFL Yes Testing Position Supine Comments No restriction within precautions. End range flexion and IR not tested. PT-OP-M Strength Start: 10/04/21 16:21 Freq: Status: Active Protocol: Document 10/05/21 15:15 AW (Rec: 10/08/21 16:51 AW [id number]) Hip Strength Hip Manual Muscle Testing Left Flexion (L2) 4 Good Extension (S1) 3+ Fair+ Abduction 4 Good Right Flexion (L2) 4- Good- Extension (S1) 3+ Fair+ Abduction 4- Good- Knee Strength Knee Manual Muscle Testing Left Flexion (S2) 4+ Good+ Extension (L3) 4+ Good+ Comments Pain with all resisted movement on the left knee. Right Flexion (S2) 4 Good Extension (L3) 4+ Good+ Ankle/Foot Strength Ankle and Foot Manual Muscle Testing bilateral Dorsiflexion (L4) 4+ Good+ Plantarflexion (S1) 4 Good PT-OP-Q Treatments Start: 10/04/21 16:21 Freq: Status: Active Protocol: Document 11/17/21 13:04 SP (Rec: 11/17/21 13:48 SP [id number]) Cardio Equipment Recumbent Elliptical (Biodex) Duration (Minutes) 4 Resistance 2 Seat Position 8 Other UEs/ LEs, 242 ft, medial R knee discomfort Gym Equipment Shuttle Recovery Unilateral Squats Details occasional cue knee with toes (L knee ER/ABD align) Resistance 25 Shuttle Recovery Platform Stable Reps/Time x20 Bilateral Squats Details min cues L>R knee hip ER alignment knees apart Resistance 50 Shuttle Recovery Platform Stable Reps/Time 2x20 Therapeutic Exercises Sidelying Exercises Clamshell Sidelying Exercise Name Clamshell Side left Equipment Used discussed but not performed today 11/07/21- told do at home later Reps/Minutes 2x10 Comments good work form response.- required cues for R Sitting Exercises LAQ Sitting Exercise Name LAQ w/ ankle EV neutral Side left Resistance AROM- L VM/VL quad quivering. Reps/Minutes 2x5 reps Comments reports painfree and hard to maintain alignment Hip Abduction Sitting Exercise Name Abd Side left Resistance AROM Comments very difficult- hold Other Exercises sit to stand Other Exercise Name sit to stand Equipment Used mesh chair + blue foam Comments heavy cues for anterior weight shift, min use of handsf Gait Training Gait Activity FWW Description L>R LE knee alignment Hip ER, heel toe- challenged maintaining Device Used FWW Level of Assistance S Surface firm Distance/Duration 100 ft, 50 ft Treatment Focus L>R knee/ hip ER alignment with foot pronated neutral Comments improved understanding but difficult, better performance on shuttle recovery and LAQ mechanics sees weekness. Stairs Description step to patterning, hip ER and quad eccentric flexion Device Used R HR, lateral pressure L Level of Assistance S Distance/Duration 4 stairs x2 sets Treatment Focus knee/ ankle alignment, strength concentric/ eccentric , Comments 1. 2 x4 step leading LLE step to 2. reciprocal up/down 2x steps R HR support and lateral pressure on L assimulate home wall on L. Manual Therapy Treatment Soft Tissue Mobilization vastus lateralis, ITB Body Location L distal tendons near jt line Mobilization Type Instrument Assisted,Myofascial Release,Strumming Intensity/Depth Moderate Body Position Hooklying Comments on shuttle recovery retrograde STM Body Location L quad, patella tendon, VMO Mobilization Type Myofascial Release Intensity/Depth Superficial Body Position Hooklying Comments manual, good response, decrease swelling L knee. shuttle press, Taping ktaping Body Location L medial knee Treatment Focus medial support knee alignment during mobility Type of Tape Kinesio Tape Skin Inspection intact normal texture Comments Pt reports had sensitivities couple times in past but tape on long time. Skin testing, showed no reaction. Applied small and reinforced small top C beige taping medial L knee for alignment / stability support (anteromedial tibia> anteromedial proximal femur), good response during gait/ stairs end tx, feels like reminds me to keep knee better positioning). Knows remove if experience discussed adverse reactions: itching, redness, tingling immediately otherwise can keep on up to 2 days and let us know next tx. PT-OP-T Assessment and Plan Start: 10/04/21 16:21 Freq: Status: Active Protocol: Document 11/17/21 13:04 SP (Rec: 11/17/21 13:48 SP [id number]) Physical Therapy Assessment Goals Five Impairment LEFS Senior Living Goal (LTG) Pt will score 60/80 or greater on LEFS to demonstrate improvement in daily function. LTG Duration 10 weeks - 12/14/21 Four Impairment decreased balance Short Term Goal (STG) Pt will score 19 or higher on Tinetti. STG Duration 5 weeks - 11/09/21 Machine Builder Goal (LTG) Pt will score within age- matched norms on Dynamic Gait Index as a measure of reduced falls risk. LTG Duration 10 weeks - 12/14/21 Three Impairment BLE strength Short Term Goal (STG) Pt will rise from a 21 tall surface without use of hands STG Duration 5 weeks - 11/09/21 Machine Builder Goal (LTG) Pt will complete 5 Time Sit to Stand from a standard height chair without use of hands in 15 seconds or less as a measure of improved BLE strength and power. LTG Duration 10 weeks - 12/14/21 Two Impairment needs assistive device, gait speed Short Term Goal (STG) Pt will walk 1100 feet on 6MWT with SPC or LRAD as a measure of improved efficiency in gait. STG Duration 5 weeks - 11/09/21 Senior Living Goal (LTG) Pt will walk 1200 feet or greater on 6MWT without AD as a measure of improved gait speed for safe community ambulation. LTG Duration 10 weeks - 12/14/21 One Impairment lacks HEP Short Term Goal (STG) Pt will be instructed in HEP for BLE strength and ROM within hip precautions STG Duration 5 weeks - 11/09/21 LTG Duration 10 weeks - 12/14/21 Assessment Summary Assessment Pt responded well to manual L medial knee and K taping (no sensitivities during tx testing). Improved focus on hip abd fac ther ex throughout . Challenged maintaining during gait but better effort seated, sidelying today with muscle quivering low quality reps. Physical Therapy Plan Frequency and Duration Frequency of Treatment 2x/Week Duration of Treatment 10 weeks Plan of Care Start Date 10/05/21 Plan of Care End Date 12/14/21 Therapeutic Interventions Therapeutic Interventions Balance Training,Gait Training ,Home Exercise Program,Manual Therapy,Neuromuscular Re- education,Self-Care/Home Management,Soft Tissue Mobilization,Therapeutic Activities,Therapeutic Exercises Modalities Cold Pack/Ice Massage,Hot Packs Next Visit Focus/Plan Next Note Type Treatment Note Next Visit Plan Assess response to K taping L medial knee support. Recheck: side clamshell, seated LAQ, hip abd TB, lateral side stepping, STS. POC: Progress strength and balance as able. Continue gait training with SPC.
--- NOTE | 2021-11-21 13:47 | PT.OTN ---
Current Diagnoses Difficulty in walking, not elsewhere classified (11/21/21) Other symptoms and signs involving the musculoskeletal system (11/21/21) Presence of right artificial hip joint (11/21/21) Physical Therapy Treatment Note PT-OP-A Visit Information Start: 10/04/21 16:21 Freq: Status: Active Protocol: Document 11/21/21 13:46 SP (Rec: 11/21/21 14:27 SP [id number]) Out-Patient Physical Therapy Visit Information Visit Information Visit Type Treatment Note Visit Note PN next tx. Visit Start Time 13:04 Visit Stop Time 13:47 Total Visit Minutes 43 Visit Number 10 Number of TANK FARM ATTENDANT Visits 1 Precautions Precautions posterior R JOHN 07/28/21 PT-OP-B Current Condition Start: 10/04/21 16:21 Freq: Status: Active Protocol: Document 10/05/21 15:15 AW (Rec: 10/05/21 13:25 AW [id number]) Current Condition History of Current Condition Onset Date July 2021 Current Complaints decreased strength and balance s/p R JOHN posterior approach History of Current Condition Chayo had R posterior hip replacement >2 months ago, went home with home health. She had a good experience with home health and is having no significant pain. She now walks with 4WW nearly 100% of the time and can walk at least 1000 feet in <10 minutes. She does best with good ankle support. She had at least three bad falls before surgery which makes her hesitant to walk without a walker. 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 Prior Treatments and Tests Previous PT for back, hip, and knee pain Treatment Goals Patient/Caregiver Goals Pt would like to walk without assistive device. Thinks she needs to unlearn gait compensations. Current Functional Impairments (Reported) Functional Limitations- Other Difficulty walking without 4WW . Uses 4WW to be able to transport objects while cooking or doing other tasks. Personal Factors Other Personal Factors That May Effect Ovarian CA, breast CA, Therapy/Recovery hypertension, BMI 39.5 PT-OP-C Subjective Start: 10/04/21 16:21 Freq: Status: Active Protocol: Document 11/21/21 13:46 SP (Rec: 11/21/21 14:27 SP [id number]) OP-PT Subjective Patient Comments Patient Comments Pt reports the K taping didn't last long, rolled up in pants . She reports her knees less rubbing walking with FWW vs short distances with SPC at home. PT-OP-D Balance Start: 10/04/21 16:21 Freq: Status: Active Protocol: Document 10/05/21 15:15 AW (Rec: 10/08/21 16:40 AW [id number]) Tinetti Balance Assessment Sitting Balance Sitting Balance Steady, safe Arising from Chair Attempts to Arise Able, requires >1 attempt Standing Balance Immediate Standing Balance Steady w/o support Standing Balance Steady, wide stance Nudged Response Staggers, catches self Standing with Eyes Closed Unsteady Turning Step Pattern Turning 360 Degrees Continuous steps Stability Turning 360 Degrees Unsteady, grabs/staggers Sitting Down Sitting Down Uses arms or unsteady Gait and Step Initiation of Gait No hesitancy Right Foot Step Length Does not pass stance ft. Right Foot Step Height Completely clears floor Left Foot Step Length Does not pass stance foot Left Foot Step Height Completely clears floor Step Description Step Symmetry Step length appears equal Step Continuity Steps appear continuous Gait Description Path Description Mild/moderate deviation Trunk Description Marked sway or uses aide Walking Stance Heels together Scoring and Interpretation Tinetti Composite Score (points) 15 Interpretation of Scores High risk for falls(< 19) Tinetti Impairment Rating from Composite 40 to <60% Impaired (Score 12- Score 16) PT-OP-E Functional Tests Start: 10/04/21 16:21 Freq: Status: Active Protocol: Document 10/05/21 15:15 AW (Rec: 10/08/21 16:40 AW [id number]) Functional Tests 2 Minute Walk Test Distance 190 feet in 101 seconds Device Used 4WW Comments average gait speed 0.57 m/s PT-OP-F Manual Assessment Start: 10/04/21 16:21 Freq: Status: Active Protocol: Document 10/05/21 15:15 AW (Rec: 10/08/21 16:41 AW [id number]) Manual Assessments Soft Tissue Assessment Soft Tissue Mobility Assessment R posterior JOHN scar with fair mobility, some evidence of adhesion. PT-OP-G Mobility & Gait Start: 10/04/21 16:21 Freq: Status: Active Protocol: Document 10/05/21 15:15 AW (Rec: 10/08/21 16:40 AW [id number]) OP Mobility Evaluation Transfers Sit to Stand Requires use of UE to stand from plinth at 23 height. OP Gait Assessment Gait Gait Assistance Required: Standby Assistance Distance (Feet) 190 Assistive Devices Assistive Device 4 Wheeled Walker Orthotic/Prosthetic Devices or Brace: No Gait Deviations General Gait Pattern Antalgic,Decreased Stride Length,Decreased Feet Clearance,Flexed Trunk,Lateral Trunk Lean Comments Gait Comments Gait notable for leftward lean and decreased right foot clearance. Bilateral knee valgus apparent with L more affected than R Stair Climbing Evaluation Evaluation Level of Assist On Stairs Standby Assistance Devices Stair Climbing Assistive Devices Left Railing,Right Railing Technique/Endurance Stair Climbing Direction Ascend and Descend Stair Climbing Technique Step to Step PT-OP-K Range of Motion Start: 10/04/21 16:21 Freq: Status: Active Protocol: Document 10/05/21 15:15 AW (Rec: 10/08/21 16:51 AW [id number]) Hip Goniometric Range of Motion Hip Right Hip ROM WFL Yes Testing Position Supine Comments No restriction within precautions. End range flexion and IR not tested. PT-OP-M Strength Start: 10/04/21 16:21 Freq: Status: Active Protocol: Document 10/05/21 15:15 AW (Rec: 10/08/21 16:51 AW [id number]) Hip Strength Hip Manual Muscle Testing Left Flexion (L2) 4 Good Extension (S1) 3+ Fair+ Abduction 4 Good Right Flexion (L2) 4- Good- Extension (S1) 3+ Fair+ Abduction 4- Good- Knee Strength Knee Manual Muscle Testing Left Flexion (S2) 4+ Good+ Extension (L3) 4+ Good+ Comments Pain with all resisted movement on the left knee. Right Flexion (S2) 4 Good Extension (L3) 4+ Good+ Ankle/Foot Strength Ankle and Foot Manual Muscle Testing bilateral Dorsiflexion (L4) 4+ Good+ Plantarflexion (S1) 4 Good PT-OP-Q Treatments Start: 10/04/21 16:21 Freq: Status: Active Protocol: Document 11/21/21 13:46 SP (Rec: 11/21/21 14:27 SP [id number]) Cardio Equipment Recumbent Elliptical (Cmed) Duration (Minutes) 5 Resistance 2 Seat Position 8 Other UEs/ LEs, 30 RPMs, 215steps, R knee starts hurt Therapeutic Exercises Supine Exercises bridge Supine Exercise Name added to HEP w/hip abd Resistance Tb #2 loop Reps/Minutes 2x5 reps Comments cued maintain hip abd and tolerant lift with TA aware Sidelying Exercises Clamshell Sidelying Exercise Name Clamshell Side bilateral Equipment Used pillow between knees Reps/Minutes 2x10 Comments improved hip abd fac and lift range Sitting Exercises LAQ Sitting Exercise Name LAQ w/ ankle EV neutral Side left Resistance AROM> #2 Reps/Minutes 2x5 reps Comments reported discomfort over patellar tendon with wt, better AROM Other Exercises sit to stand Other Exercise Name sit to stand Equipment Used black table, TB #2loop Comments heavy UE Gait Training Gait Activity FWW Description L>R LE knee alignment Hip ER, heel toe- challenged maintaining Device Used FWW Level of Assistance S Surface firm Distance/Duration 100ft, 50 ft Treatment Focus L>R knee/ hip ER alignment with foot pronated neutral Comments improved understanding hip abd fac but difficult, better performance on shuttle recovery and LAQ mechanics sees weekness. Adjusted personal FWW lower bottom notch, recommended replace tennis balls with skis. SPC Description Gait training Device Used SPC Level of Assistance SBA Distance/Duration 50' x 2 Treatment Focus knee alignment, hip abd fac Comments cued trunk stability, less SB wt shifts and upright trunk posture. Challenged keeping knees apart. PT-OP-T Assessment and Plan Start: 10/04/21 16:21 Freq: Status: Active Protocol: Document 11/21/21 13:46 SP (Rec: 11/21/21 14:27 SP [id number]) Physical Therapy Assessment Goals Five Impairment LEFS Real Estate Salesperson Goal (LTG) Pt will score 60/80 or greater on LEFS to demonstrate improvement in daily function. LTG Duration 10 weeks - 12/14/21 Four Impairment decreased balance Short Term Goal (STG) Pt will score 19 or higher on Tinetti. STG Duration 5 weeks - 11/09/21 Real Estate Salesperson Goal (LTG) Pt will score within age- matched norms on Dynamic Gait Index as a measure of reduced falls risk. LTG Duration 10 weeks - 12/14/21 Three Impairment BLE strength Short Term Goal (STG) Pt will rise from a 21 tall surface without use of hands 11/21/21: requires use of BUE to come to standing, elevated black table, not measurered. STG Duration 5 weeks - 11/09/21 (progressing 6/7/22) Custodial Goal (LTG) Pt will complete 5 Time Sit to Stand from a standard height chair without use of hands in 15 seconds or less as a measure of improved BLE strength and power. LTG Duration 10 weeks - 12/14/21 Two Impairment needs assistive device, gait speed Short Term Goal (STG) Pt will walk 1100 feet on 6MWT with SPC or LRAD as a measure of improved efficiency in gait. STG Duration 5 weeks - 11/09/21 Custodial Goal (LTG) Pt will walk 1200 feet or greater on 6MWT without AD as a measure of improved gait speed for safe community ambulation. LTG Duration 10 weeks - 12/14/21 One Impairment lacks HEP Short Term Goal (STG) Pt will be instructed in HEP for BLE strength and ROM within hip precautions 11/21/21: progressing: side clam w/ pillow, bridge w/ TB, STS with band, LAQ, band walk, heel raises, seated hip abd TB . STG Duration 5 weeks - 11/09/21 (progressing : 11/21/21) LTG Duration 10 weeks - 12/14/21 Assessment Summary Assessment Pt responded well and increased ROM w/ added pillow between B knees and more noted hip abd effort feel with no L knee pain. Initiated bridge and STS with TB around upper shins with noted better hip abd fac with no reports pain just challenging effort. DIscussed with pt if had L knee brace for alignment support walking and will look for her old one. Physical Therapy Plan Frequency and Duration Frequency of Treatment 2x/Week Duration of Treatment 10 weeks Plan of Care Start Date 10/05/21 Plan of Care End Date 12/14/21 Therapeutic Interventions Therapeutic Interventions Balance Training,Gait Training ,Home Exercise Program,Manual Therapy,Neuromuscular Re- education,Self-Care/Home Management,Soft Tissue Mobilization,Therapeutic Activities,Therapeutic Exercises Modalities Cold Pack/Ice Massage,Hot Packs Next Visit Focus/Plan Next Note Type Treatment Note Next Visit Plan Recheck: side clamshell w/ pillow, lateral side stepping, STS w/ TB, bridge w/ TB. POC: Progress strength and balance as able. Continue gait training with SPC.
--- NOTE | 2021-11-23 15:53 | PT.OTN ---
Current Diagnoses Difficulty in walking, not elsewhere classified (11/23/21) Other symptoms and signs involving the musculoskeletal system (11/23/21) Presence of right artificial hip joint (11/23/21) Physical Therapy Treatment Note PT-OP-A Visit Information Start: 10/04/21 16:21 Freq: Status: Active Protocol: Document 11/23/21 14:33 AW (Rec: 11/23/21 15:52 AW [id number]) Out-Patient Physical Therapy Visit Information Visit Information Visit Type Progress Note Visit Start Time 14:57 Visit Stop Time 15:42 Total Visit Minutes 45 Visit Number 11 Number of CLINICAL RESEARCH SPECIALIST Visits 0 Precautions Precautions posterior R JOHN 07/28/21 PT-OP-B Current Condition Start: 10/04/21 16:21 Freq: Status: Active Protocol: Document 10/05/21 15:15 AW (Rec: 10/05/21 13:25 AW [id number]) Current Condition History of Current Condition Onset Date July 2021 Current Complaints decreased strength and balance s/p R JOHN posterior approach History of Current Condition Chayo had R posterior hip replacement >2 months ago, went home with home health. She had a good experience with home health and is having no significant pain. She now walks with 4WW nearly 100% of the time and can walk at least 1000 feet in <10 minutes. She does best with good ankle support. She had at least three bad falls before surgery which makes her hesitant to walk without a walker. 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 Prior Treatments and Tests Previous PT for back, hip, and knee pain Treatment Goals Patient/Caregiver Goals Pt would like to walk without assistive device. Thinks she needs to unlearn gait compensations. Current Functional Impairments (Reported) Functional Limitations- Other Difficulty walking without 4WW . Uses 4WW to be able to transport objects while cooking or doing other tasks. Personal Factors Other Personal Factors That May Effect Ovarian CA, breast CA, Therapy/Recovery hypertension, BMI 39.5 PT-OP-C Subjective Start: 10/04/21 16:21 Freq: Status: Active Protocol: Document 11/21/21 13:46 SP (Rec: 11/21/21 14:27 SP [id number]) OP-PT Subjective Patient Comments Patient Comments Pt reports the K taping didn't last long, rolled up in pants . She reports her knees less rubbing walking with FWW vs short distances with SPC at home. PT-OP-D Balance Start: 10/04/21 16:21 Freq: Status: Active Protocol: Document 10/05/21 15:15 AW (Rec: 10/08/21 16:40 AW [id number]) Tinetti Balance Assessment Sitting Balance Sitting Balance Steady, safe Arising from Chair Attempts to Arise Able, requires >1 attempt Standing Balance Immediate Standing Balance Steady w/o support Standing Balance Steady, wide stance Nudged Response Staggers, catches self Standing with Eyes Closed Unsteady Turning Step Pattern Turning 360 Degrees Continuous steps Stability Turning 360 Degrees Unsteady, grabs/staggers Sitting Down Sitting Down Uses arms or unsteady Gait and Step Initiation of Gait No hesitancy Right Foot Step Length Does not pass stance ft. Right Foot Step Height Completely clears floor Left Foot Step Length Does not pass stance foot Left Foot Step Height Completely clears floor Step Description Step Symmetry Step length appears equal Step Continuity Steps appear continuous Gait Description Path Description Mild/moderate deviation Trunk Description Marked sway or uses aide Walking Stance Heels together Scoring and Interpretation Tinetti Composite Score (points) 15 Interpretation of Scores High risk for falls(< 19) Tinetti Impairment Rating from Composite 40 to <60% Impaired (Score 12- Score 16) PT-OP-E Functional Tests Start: 10/04/21 16:21 Freq: Status: Active Protocol: Document 10/05/21 15:15 AW (Rec: 10/08/21 16:40 AW [id number]) Functional Tests 2 Minute Walk Test Distance 190 feet in 101 seconds Device Used 4WW Comments average gait speed 0.57 m/s PT-OP-F Manual Assessment Start: 10/04/21 16:21 Freq: Status: Active Protocol: Document 10/05/21 15:15 AW (Rec: 10/08/21 16:41 AW [id number]) Manual Assessments Soft Tissue Assessment Soft Tissue Mobility Assessment R posterior JOHN scar with fair mobility, some evidence of adhesion. PT-OP-G Mobility & Gait Start: 10/04/21 16:21 Freq: Status: Active Protocol: Document 10/05/21 15:15 AW (Rec: 10/08/21 16:40 AW [id number]) OP Mobility Evaluation Transfers Sit to Stand Requires use of UE to stand from plinth at 23 height. OP Gait Assessment Gait Gait Assistance Required: Standby Assistance Distance (Feet) 190 Assistive Devices Assistive Device 4 Wheeled Walker Orthotic/Prosthetic Devices or Brace: No Gait Deviations General Gait Pattern Antalgic,Decreased Stride Length,Decreased Feet Clearance,Flexed Trunk,Lateral Trunk Lean Comments Gait Comments Gait notable for leftward lean and decreased right foot clearance. Bilateral knee valgus apparent with L more affected than R Stair Climbing Evaluation Evaluation Level of Assist On Stairs Standby Assistance Devices Stair Climbing Assistive Devices Left Railing,Right Railing Technique/Endurance Stair Climbing Direction Ascend and Descend Stair Climbing Technique Step to Step PT-OP-K Range of Motion Start: 10/04/21 16:21 Freq: Status: Active Protocol: Document 10/05/21 15:15 AW (Rec: 10/08/21 16:51 AW [id number]) Hip Goniometric Range of Motion Hip Right Hip ROM WFL Yes Testing Position Supine Comments No restriction within precautions. End range flexion and IR not tested. PT-OP-M Strength Start: 10/04/21 16:21 Freq: Status: Active Protocol: Document 10/05/21 15:15 AW (Rec: 10/08/21 16:51 AW [id number]) Hip Strength Hip Manual Muscle Testing Left Flexion (L2) 4 Good Extension (S1) 3+ Fair+ Abduction 4 Good Right Flexion (L2) 4- Good- Extension (S1) 3+ Fair+ Abduction 4- Good- Knee Strength Knee Manual Muscle Testing Left Flexion (S2) 4+ Good+ Extension (L3) 4+ Good+ Comments Pain with all resisted movement on the left knee. Right Flexion (S2) 4 Good Extension (L3) 4+ Good+ Ankle/Foot Strength Ankle and Foot Manual Muscle Testing bilateral Dorsiflexion (L4) 4+ Good+ Plantarflexion (S1) 4 Good PT-OP-Q Treatments Start: 10/04/21 16:21 Freq: Status: Active Protocol: Document 11/23/21 14:33 AW (Rec: 11/23/21 15:52 AW [id number]) Therapeutic Exercises Supine Exercises bridge Supine Exercise Name with hip abd; HEP review Resistance Tb #2 loop Reps/Minutes 2x12 reps Comments cued maintain hip abd and tolerant lift with TA aware Sidelying Exercises Clamshell Sidelying Exercise Name Clamshell Side bilateral Resistance TB2 Equipment Used pillow between knees Reps/Minutes 2x10 Comments HEP review Standing Exercises band walk Standing Exercise Name reviewed: lat stepping Side bilateral Resistance TB2 above knees Equipment Used 2 HR Reps/Minutes 10 ft x3 laps Comments cued toes fwd, hip ext Other Exercises sit to stand Other Exercise Name sit to stand Equipment Used 20 black table, TB #2loop Comments no use of hands 4 reps, min use of hands to descend on rep 5 Gait Training Gait Activity FWW Description 6MWT Device Used FWW Level of Assistance S Surface firm Distance/Duration 633 feet/6 minutes Treatment Focus L>R knee/ hip ER alignment with foot pronated neutral Comments average gait speed 0.54 m/s Neuro Re-Education Treatment Balance Activities Tinetti Details Tinetti Comments . Exceeded goal. See copy scanned to EMR PT-OP-T Assessment and Plan Start: 10/04/21 16:21 Freq: Status: Active Protocol: Document 11/23/21 14:33 AW (Rec: 11/23/21 15:52 AW [id number]) Physical Therapy Assessment Goals Five Impairment LEFS Medical Collections Specialist Goal (LTG) Pt will score 60/80 or greater on LEFS to demonstrate improvement in daily function. LTG Duration 02/14/22 Four Impairment decreased balance Short Term Goal (STG) Pt will score 19 or higher on Tinetti. 11/23/21 - GOAL MET. STG Duration 5 weeks - 11/09/21 GOAL MET Detention Goal (LTG) Pt will score within age- matched norms on Dynamic Gait Index as a measure of reduced falls risk. LTG Duration 10 weeks - 12/14/21 Three Impairment BLE strength Short Term Goal (STG) Pt will rise from a 21 tall surface without use of hands 11/21/21: requires use of BUE to come to standing, elevated black table, not measurered. 11/23/21 - Pt can rise from 20 mat without use of hands 4 times. STG Duration 5 weeks - 11/09/21 11/23/21 - GOAL MET Detention Goal (LTG) Pt will complete 5 Time Sit to Stand from a standard height chair without use of hands in 15 seconds or less as a measure of improved BLE strength and power. LTG Duration 10 weeks - 12/14/21 Two Impairment needs assistive device, gait speed Short Term Goal (STG) Pt will walk 1100 feet on 6MWT with SPC or LRAD as a measure of improved efficiency in gait. 11/23/21 - Pt ambulates 633 feet in six min with FWW . Continue toward goal STG Duration 5 weeks - 01/13/22 Detention Goal (LTG) Pt will walk 1200 feet or greater on 6MWT with SPC or no AD as a measure of improved gait speed for safe community ambulation. LTG Duration 02/14/22 One Impairment lacks HEP Short Term Goal (STG) Pt will be instructed in HEP for BLE strength and ROM within hip precautions 11/21/21: progressing: side clam w/ pillow, bridge w/ TB, STS with band, LAQ, band walk, heel raises, seated hip abd TB . STG Duration 5 weeks - 11/09/21 (progressing : 11/21/21) LTG Duration 10 weeks - 12/14/21 Progress Towards Goals Progress Towards Goals Progressing Toward Goals,Slow Progress - Other Progress Comments Pt has progressed well with balance, scoring 22/28 on Tinetti today which exceeds her goal. Gait remains slow and pt completed 6MWT today using FWW with no change in gait speed since evaluation. Strength is improving as evidence by ability to complete sit to stand from 20 surface without use of hands. 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 Assessment Summary Assessment Re-assessed and updated plan of care today. Pt still using FWW for most out of house distances. She is using a cane at home and sometimes maneuvering around her kitchen without AD. Physical Therapy Plan Frequency and Duration Frequency of Treatment 2x/Week Duration of Treatment 3 months Plan of Care Start Date 11/23/21 Plan of Care End Date 02/14/22 Therapeutic Interventions Therapeutic Interventions Balance Training,Gait Training ,Home Exercise Program,Manual Therapy,Neuromuscular Re- education,Self-Care/Home Management,Soft Tissue Mobilization,Therapeutic Activities,Therapeutic Exercises Modalities Cold Pack/Ice Massage,Hot Packs Next Visit Focus/Plan Next Note Type Treatment Note Next Visit Plan POC: Progress strength and balance as able. Continue gait training with SPC.
--- NOTE | 2021-11-23 15:53 | PT.OPPOC ---
Physical, Occupational & Speech Therapy At [facility] Current Diagnoses Difficulty in walking, not elsewhere classified (11/23/21) Other symptoms and signs involving the musculoskeletal system (11/23/21) Presence of right artificial hip joint (11/23/21) Visit Care Team Role Provider Type ENEIDA Bradley Attending Provider Advanced Chinese Medicine Practitioner Family Provider Primary Care Provider Referring Provider Specialty: [facility] Practice Address: [address] [place] [address], [facility] Email: [email or web address] Plan Of Care PT-OP-T Assessment and Plan Start: 10/04/21 16:21 Freq: Status: Active Protocol: Document 11/23/21 14:33 AW (Rec: 11/23/21 15:52 AW [id number]) Physical Therapy Assessment Goals Five Impairment LEFS Car Changer Goal (LTG) Pt will score 60/80 or greater on LEFS to demonstrate improvement in daily function. LTG Duration 02/14/22 Four Impairment decreased balance Short Term Goal (STG) Pt will score 19 or higher on Tinetti. 11/23/21 - GOAL MET. STG Duration 5 weeks - 11/09/21 GOAL MET Usp Goal (LTG) Pt will score within age- matched norms on Dynamic Gait Index as a measure of reduced falls risk. LTG Duration 10 weeks - 12/14/21 Three Impairment BLE strength Short Term Goal (STG) Pt will rise from a 21 tall surface without use of hands 11/21/21: requires use of BUE to come to standing, elevated black table, not measurered. 11/23/21 - Pt can rise from 20 mat without use of hands 4 times. STG Duration 5 weeks - 11/09/21 11/23/21 - GOAL MET Usp Goal (LTG) Pt will complete 5 Time Sit to Stand from a standard height chair without use of hands in 15 seconds or less as a measure of improved BLE strength and power. LTG Duration 10 weeks - 12/14/21 Two Impairment needs assistive device, gait speed Short Term Goal (STG) Pt will walk 1100 feet on 6MWT with SPC or LRAD as a measure of improved efficiency in gait. 11/23/21 - Pt ambulates 633 feet in six min with FWW . Continue toward goal STG Duration 5 weeks - 01/13/22 Car Changer Goal (LTG) Pt will walk 1200 feet or greater on 6MWT with SPC or no AD as a measure of improved gait speed for safe community ambulation. LTG Duration 02/14/22 One Impairment lacks HEP Short Term Goal (STG) Pt will be instructed in HEP for BLE strength and ROM within hip precautions 11/21/21: progressing: side clam w/ pillow, bridge w/ TB, STS with band, LAQ, band walk, heel raises, seated hip abd TB . STG Duration 5 weeks - 11/09/21 (progressing : 11/21/21) LTG Duration 10 weeks - 12/14/21 Progress Towards Goals Progress Towards Goals Progressing Toward Goals,Slow Progress - Other Progress Comments Pt has progressed well with balance, scoring 22/28 on Tinetti today which exceeds her goal. Gait remains slow and pt completed 6MWT today using FWW with no change in gait speed since evaluation. Strength is improving as evidence by ability to complete sit to stand from 20 surface without use of hands. 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 Assessment Summary Assessment Re-assessed and updated plan of care today. Pt still using FWW for most out of house distances. She is using a cane at home and sometimes maneuvering around her kitchen without AD. Physical Therapy Plan Frequency and Duration Frequency of Treatment 2x/Week Duration of Treatment 3 months Plan of Care Start Date 11/23/21 Plan of Care End Date 02/14/22 Therapeutic Interventions Therapeutic Interventions Balance Training,Gait Training ,Home Exercise Program,Manual Therapy,Neuromuscular Re- education,Self-Care/Home Management,Soft Tissue Mobilization,Therapeutic Activities,Therapeutic Exercises Modalities Cold Pack/Ice Massage,Hot Packs Next Visit Focus/Plan Next Note Type Treatment Note Next Visit Plan POC: Progress strength and balance as able. Continue gait training with SPC. Plan of Care Dates Plan of Care Start Date 11/23/21 Plan of Care End Date 02/14/22 Electronically Signed by: Kim Jerome, PT 11/23/21 0197 If you are in agreement with this Plan of Care, please return a signed and dated copy. I have reviewed this Plan of Care and certify that the skilled therapy services above are required to meet the patient?s needs. Physician Signature Date Printed Name and Credentials Clinical Instructor Signature Printed Name and Credentials
--- NOTE | 2021-11-28 14:30 | PT.OTN ---
Current Diagnoses Difficulty in walking, not elsewhere classified (11/28/21) Other symptoms and signs involving the musculoskeletal system (11/28/21) Presence of right artificial hip joint (11/28/21) Physical Therapy Treatment Note PT-OP-A Visit Information Start: 10/04/21 16:21 Freq: Status: Active Protocol: Document 11/28/21 13:46 SP (Rec: 11/28/21 14:34 SP [id number]) Out-Patient Physical Therapy Visit Information Visit Information Visit Type Treatment Note Visit Note Measurements L knee: 5cm above patella: 52.5cm, 20. 5 mid patella:47.5cm, 19 5cm below patella: 39.5cm, 15. 5 Visit Start Time 13:46 Visit Stop Time 14:30 Total Visit Minutes 44 Visit Number 12 Number of GROUND PRODUCTS DIRECTOR Visits 1 Precautions Precautions posterior R JOHN 07/28/21 PT-OP-B Current Condition Start: 10/04/21 16:21 Freq: Status: Active Protocol: Document 10/05/21 15:15 AW (Rec: 10/05/21 13:25 AW [id number]) Current Condition History of Current Condition Onset Date July 2021 Current Complaints decreased strength and balance s/p R JOHN posterior approach History of Current Condition Chayo had R posterior hip replacement >2 months ago, went home with home health. She had a good experience with home health and is having no significant pain. She now walks with 4WW nearly 100% of the time and can walk at least 1000 feet in <10 minutes. She does best with good ankle support. She had at least three bad falls before surgery which makes her hesitant to walk without a walker. 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 Prior Treatments and Tests Previous PT for back, hip, and knee pain Treatment Goals Patient/Caregiver Goals Pt would like to walk without assistive device. Thinks she needs to unlearn gait compensations. Current Functional Impairments (Reported) Functional Limitations- Other Difficulty walking without 4WW . Uses 4WW to be able to transport objects while cooking or doing other tasks. Personal Factors Other Personal Factors That May Effect Ovarian CA, breast CA, Therapy/Recovery hypertension, BMI 39.5 PT-OP-C Subjective Start: 10/04/21 16:21 Freq: Status: Active Protocol: Document 11/28/21 13:46 SP (Rec: 11/28/21 14:34 SP [id number]) OP-PT Subjective Patient Comments Patient Comments Pt stated trying to walk with better LE alignment, is alot of concentration, compliant with HEP. She stated felt the K taping did help knee 2 tx ago but rolled down so had to remove, thought more about the knee brace support and doesn' t have her old one, but wanted an image to look for one in town. PT-OP-D Balance Start: 10/04/21 16:21 Freq: Status: Active Protocol: Document 10/05/21 15:15 AW (Rec: 10/08/21 16:40 AW [id number]) Tinetti Balance Assessment Sitting Balance Sitting Balance Steady, safe Arising from Chair Attempts to Arise Able, requires >1 attempt Standing Balance Immediate Standing Balance Steady w/o support Standing Balance Steady, wide stance Nudged Response Staggers, catches self Standing with Eyes Closed Unsteady Turning Step Pattern Turning 360 Degrees Continuous steps Stability Turning 360 Degrees Unsteady, grabs/staggers Sitting Down Sitting Down Uses arms or unsteady Gait and Step Initiation of Gait No hesitancy Right Foot Step Length Does not pass stance ft. Right Foot Step Height Completely clears floor Left Foot Step Length Does not pass stance foot Left Foot Step Height Completely clears floor Step Description Step Symmetry Step length appears equal Step Continuity Steps appear continuous Gait Description Path Description Mild/moderate deviation Trunk Description Marked sway or uses aide Walking Stance Heels together Scoring and Interpretation Tinetti Composite Score (points) 15 Interpretation of Scores High risk for falls(< 19) Tinetti Impairment Rating from Composite 40 to <60% Impaired (Score 12- Score 16) PT-OP-E Functional Tests Start: 10/04/21 16:21 Freq: Status: Active Protocol: Document 10/05/21 15:15 AW (Rec: 10/08/21 16:40 AW [id number]) Functional Tests 2 Minute Walk Test Distance 190 feet in 101 seconds Device Used 4WW Comments average gait speed 0.57 m/s PT-OP-F Manual Assessment Start: 10/04/21 16:21 Freq: Status: Active Protocol: Document 10/05/21 15:15 AW (Rec: 10/08/21 16:41 AW [id number]) Manual Assessments Soft Tissue Assessment Soft Tissue Mobility Assessment R posterior JOHN scar with fair mobility, some evidence of adhesion. PT-OP-G Mobility & Gait Start: 10/04/21 16:21 Freq: Status: Active Protocol: Document 10/05/21 15:15 AW (Rec: 10/08/21 16:40 AW [id number]) OP Mobility Evaluation Transfers Sit to Stand Requires use of UE to stand from plinth at 23 height. OP Gait Assessment Gait Gait Assistance Required: Standby Assistance Distance (Feet) 190 Assistive Devices Assistive Device 4 Wheeled Walker Orthotic/Prosthetic Devices or Brace: No Gait Deviations General Gait Pattern Antalgic,Decreased Stride Length,Decreased Feet Clearance,Flexed Trunk,Lateral Trunk Lean Comments Gait Comments Gait notable for leftward lean and decreased right foot clearance. Bilateral knee valgus apparent with L more affected than R Stair Climbing Evaluation Evaluation Level of Assist On Stairs Standby Assistance Devices Stair Climbing Assistive Devices Left Railing,Right Railing Technique/Endurance Stair Climbing Direction Ascend and Descend Stair Climbing Technique Step to Step PT-OP-K Range of Motion Start: 10/04/21 16:21 Freq: Status: Active Protocol: Document 10/05/21 15:15 AW (Rec: 10/08/21 16:51 AW [id number]) Hip Goniometric Range of Motion Hip Right Hip ROM WFL Yes Testing Position Supine Comments No restriction within precautions. End range flexion and IR not tested. PT-OP-M Strength Start: 10/04/21 16:21 Freq: Status: Active Protocol: Document 10/05/21 15:15 AW (Rec: 10/08/21 16:51 AW [id number]) Hip Strength Hip Manual Muscle Testing Left Flexion (L2) 4 Good Extension (S1) 3+ Fair+ Abduction 4 Good Right Flexion (L2) 4- Good- Extension (S1) 3+ Fair+ Abduction 4- Good- Knee Strength Knee Manual Muscle Testing Left Flexion (S2) 4+ Good+ Extension (L3) 4+ Good+ Comments Pain with all resisted movement on the left knee. Right Flexion (S2) 4 Good Extension (L3) 4+ Good+ Ankle/Foot Strength Ankle and Foot Manual Muscle Testing bilateral Dorsiflexion (L4) 4+ Good+ Plantarflexion (S1) 4 Good PT-OP-Q Treatments Start: 10/04/21 16:21 Freq: Status: Active Protocol: Document 11/28/21 13:46 SP (Rec: 11/28/21 14:34 SP [id number]) Therapeutic Exercises Supine Exercises bridge Supine Exercise Name with hip abd; HEP review Resistance Tb #2 loop Reps/Minutes 2x12 reps Comments cued maintain hip abd and tolerant lift with TA aware Sidelying Exercises Clamshell Sidelying Exercise Name Clamshell Side bilateral Resistance TB2 Equipment Used no pillow today Reps/Minutes 2x10 Comments good set up and fomr Standing Exercises step up/down Standing Exercise Name fwd, side step ups Side bilateral Equipment Used 4 step, rail BUE support Reps/Minutes 2x5 each Comments reported L knee tiredness started discomfort band walk Standing Exercise Name reviewed: lat stepping Side bilateral Resistance TB2 above knees (RTB) Equipment Used 2 HR Reps/Minutes 1 laps, 10 ft Comments cued toes fwd, hip ext ( popping L knee going L) Other Exercises sit to stand Other Exercise Name sit to stand Equipment Used 20 x5 reps > 19 black table x3 reps Comments no UE support this tx PT-OP-T Assessment and Plan Start: 10/04/21 16:21 Freq: Status: Active Protocol: Document 11/28/21 13:46 SP (Rec: 11/28/21 14:34 SP [id number]) Physical Therapy Assessment Goals Five Impairment LEFS Snf Goal (LTG) Pt will score 60/80 or greater on LEFS to demonstrate improvement in daily function. LTG Duration 02/14/22 Four Impairment decreased balance Short Term Goal (STG) Pt will score 19 or higher on Tinetti. 11/23/21 - GOAL MET. STG Duration 5 weeks - 11/09/21 GOAL MET Tank Storage Supervisor Goal (LTG) Pt will score within age- matched norms on Dynamic Gait Index as a measure of reduced falls risk. LTG Duration 10 weeks - 12/14/21 Three Impairment BLE strength Short Term Goal (STG) Pt will rise from a 21 tall surface without use of hands 11/21/21: requires use of BUE to come to standing, elevated black table, not measurered. 11/23/21 - Pt can rise from 20 mat without use of hands 4 times. STG Duration 5 weeks - 11/09/21 11/23/21 - GOAL MET Tank Storage Supervisor Goal (LTG) Pt will complete 5 Time Sit to Stand from a standard height chair without use of hands in 15 seconds or less as a measure of improved BLE strength and power. LTG Duration 10 weeks - 12/14/21 Two Impairment needs assistive device, gait speed Short Term Goal (STG) Pt will walk 1100 feet on 6MWT with SPC or LRAD as a measure of improved efficiency in gait. 11/23/21 - Pt ambulates 633 feet in six min with FWW . Continue toward goal STG Duration 5 weeks - 01/13/22 Tank Storage Supervisor Goal (LTG) Pt will walk 1200 feet or greater on 6MWT with SPC or no AD as a measure of improved gait speed for safe community ambulation. LTG Duration 02/14/22 One Impairment lacks HEP Short Term Goal (STG) Pt will be instructed in HEP for BLE strength and ROM within hip precautions 11/21/21: progressing: side clam w/ pillow, bridge w/ TB, STS with band, LAQ, band walk, heel raises, seated hip abd TB . STG Duration 5 weeks - 11/09/21 (progressing : 11/21/21) LTG Duration 10 weeks - 12/14/21 Assessment Summary Assessment Pt improved clamshell without pillow support and STS from lower height 19 without UE support this tx. She reported L knee popping during resisted L side stepping so stopped, tiring but good response muscle work f and side step ups with UE support on rail. Physical Therapy Plan Frequency and Duration Frequency of Treatment 2x/Week Duration of Treatment 3 months Plan of Care Start Date 11/23/21 Plan of Care End Date 02/14/22 Therapeutic Interventions Therapeutic Interventions Balance Training,Gait Training ,Home Exercise Program,Manual Therapy,Neuromuscular Re- education,Self-Care/Home Management,Soft Tissue Mobilization,Therapeutic Activities,Therapeutic Exercises Modalities Cold Pack/Ice Massage,Hot Packs Next Visit Focus/Plan Next Note Type Treatment Note Next Visit Plan Continue hip abd strengthening , check if got L knee brace for support/ alignment. POC: Progress strength and balance as able. Continue gait training with SPC.
--- NOTE | 2021-11-30 17:08 | PT.OTN ---
Current Diagnoses Difficulty in walking, not elsewhere classified (11/30/21) Other symptoms and signs involving the musculoskeletal system (11/30/21) Presence of right artificial hip joint (11/30/21) Physical Therapy Treatment Note PT-OP-A Visit Information Start: 10/04/21 16:21 Freq: Status: Active Protocol: Document 11/30/21 15:21 AW (Rec: 11/30/21 17:08 AW [id number]) Out-Patient Physical Therapy Visit Information Visit Information Visit Type Treatment Note Visit Start Time 15:21 Visit Stop Time 16:01 Total Visit Minutes 40 Visit Number 13 Number of PROTOTYPE MODEL MAKER Visits 0 Precautions Precautions posterior R JOHN 07/28/21 PT-OP-B Current Condition Start: 10/04/21 16:21 Freq: Status: Active Protocol: Document 10/05/21 15:15 AW (Rec: 10/05/21 13:25 AW [id number]) Current Condition History of Current Condition Onset Date July 2021 Current Complaints decreased strength and balance s/p R JOHN posterior approach History of Current Condition Chayo had R posterior hip replacement >2 months ago, went home with home health. She had a good experience with home health and is having no significant pain. She now walks with 4WW nearly 100% of the time and can walk at least 1000 feet in <10 minutes. She does best with good ankle support. She had at least three bad falls before surgery which makes her hesitant to walk without a walker. 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 Prior Treatments and Tests Previous PT for back, hip, and knee pain Treatment Goals Patient/Caregiver Goals Pt would like to walk without assistive device. Thinks she needs to unlearn gait compensations. Current Functional Impairments (Reported) Functional Limitations- Other Difficulty walking without 4WW . Uses 4WW to be able to transport objects while cooking or doing other tasks. Personal Factors Other Personal Factors That May Effect Ovarian CA, breast CA, Therapy/Recovery hypertension, BMI 39.5 PT-OP-C Subjective Start: 10/04/21 16:21 Freq: Status: Active Protocol: Document 11/30/21 15:21 AW (Rec: 11/30/21 17:08 AW [id number]) OP-PT Subjective Patient Comments Patient Comments Pt arrives with FWW. I'm still sore from Saturday. Has been looking at knee braces PT-OP-D Balance Start: 10/04/21 16:21 Freq: Status: Active Protocol: Document 10/05/21 15:15 AW (Rec: 10/08/21 16:40 AW [id number]) Tinetti Balance Assessment Sitting Balance Sitting Balance Steady, safe Arising from Chair Attempts to Arise Able, requires >1 attempt Standing Balance Immediate Standing Balance Steady w/o support Standing Balance Steady, wide stance Nudged Response Staggers, catches self Standing with Eyes Closed Unsteady Turning Step Pattern Turning 360 Degrees Continuous steps Stability Turning 360 Degrees Unsteady, grabs/staggers Sitting Down Sitting Down Uses arms or unsteady Gait and Step Initiation of Gait No hesitancy Right Foot Step Length Does not pass stance ft. Right Foot Step Height Completely clears floor Left Foot Step Length Does not pass stance foot Left Foot Step Height Completely clears floor Step Description Step Symmetry Step length appears equal Step Continuity Steps appear continuous Gait Description Path Description Mild/moderate deviation Trunk Description Marked sway or uses aide Walking Stance Heels together Scoring and Interpretation Tinetti Composite Score (points) 15 Interpretation of Scores High risk for falls(< 19) Tinetti Impairment Rating from Composite 40 to <60% Impaired (Score 12- Score 16) PT-OP-E Functional Tests Start: 10/04/21 16:21 Freq: Status: Active Protocol: Document 10/05/21 15:15 AW (Rec: 10/08/21 16:40 AW [id number]) Functional Tests 2 Minute Walk Test Distance 190 feet in 101 seconds Device Used 4WW Comments average gait speed 0.57 m/s PT-OP-F Manual Assessment Start: 10/04/21 16:21 Freq: Status: Active Protocol: Document 10/05/21 15:15 AW (Rec: 10/08/21 16:41 AW [id number]) Manual Assessments Soft Tissue Assessment Soft Tissue Mobility Assessment R posterior JOHN scar with fair mobility, some evidence of adhesion. PT-OP-G Mobility & Gait Start: 10/04/21 16:21 Freq: Status: Active Protocol: Document 10/05/21 15:15 AW (Rec: 10/08/21 16:40 AW [id number]) OP Mobility Evaluation Transfers Sit to Stand Requires use of UE to stand from plinth at 23 height. OP Gait Assessment Gait Gait Assistance Required: Standby Assistance Distance (Feet) 190 Assistive Devices Assistive Device 4 Wheeled Walker Orthotic/Prosthetic Devices or Brace: No Gait Deviations General Gait Pattern Antalgic,Decreased Stride Length,Decreased Feet Clearance,Flexed Trunk,Lateral Trunk Lean Comments Gait Comments Gait notable for leftward lean and decreased right foot clearance. Bilateral knee valgus apparent with L more affected than R Stair Climbing Evaluation Evaluation Level of Assist On Stairs Standby Assistance Devices Stair Climbing Assistive Devices Left Railing,Right Railing Technique/Endurance Stair Climbing Direction Ascend and Descend Stair Climbing Technique Step to Step PT-OP-K Range of Motion Start: 10/04/21 16:21 Freq: Status: Active Protocol: Document 10/05/21 15:15 AW (Rec: 10/08/21 16:51 AW [id number]) Hip Goniometric Range of Motion Hip Right Hip ROM WFL Yes Testing Position Supine Comments No restriction within precautions. End range flexion and IR not tested. PT-OP-M Strength Start: 10/04/21 16:21 Freq: Status: Active Protocol: Document 10/05/21 15:15 AW (Rec: 10/08/21 16:51 AW [id number]) Hip Strength Hip Manual Muscle Testing Left Flexion (L2) 4 Good Extension (S1) 3+ Fair+ Abduction 4 Good Right Flexion (L2) 4- Good- Extension (S1) 3+ Fair+ Abduction 4- Good- Knee Strength Knee Manual Muscle Testing Left Flexion (S2) 4+ Good+ Extension (L3) 4+ Good+ Comments Pain with all resisted movement on the left knee. Right Flexion (S2) 4 Good Extension (L3) 4+ Good+ Ankle/Foot Strength Ankle and Foot Manual Muscle Testing bilateral Dorsiflexion (L4) 4+ Good+ Plantarflexion (S1) 4 Good PT-OP-Q Treatments Start: 10/04/21 16:21 Freq: Status: Active Protocol: Document 11/30/21 15:21 AW (Rec: 11/30/21 17:08 AW [id number]) Cardio Equipment Recumbent Elliptical ([employer]) Duration (Minutes) 5 Resistance 2 Seat Position 8 Other UEs/ LEs, 30 RPMs, 215steps, R knee starts hurt Therapeutic Exercises Supine Exercises bridge Supine Exercise Name with hip abd; HEP review Resistance Tb #2 loop Reps/Minutes x8 - fatigued Comments cued maintain hip abd and tolerant lift with TA aware SLR Supine Exercise Name SLR Side left Reps/Minutes 2x5 Comments neutral and ER bias Sidelying Exercises Clamshell Sidelying Exercise Name Clamshell Side bilateral Resistance TB2 Equipment Used performed supine today Reps/Minutes 2x10 Gait Training Gait Activity SPC Description Gait training Device Used SPC Level of Assistance SBA Distance/Duration 180', 90' Treatment Focus knee alignment, hip abd fac Comments Cued alignment, hip abd facilitation. Patterning and fluidity have improved. Manual Therapy Treatment Soft Tissue Mobilization L knee Body Location distal quads/HS, proximal gastroc Mobilization Type Rolling,Strumming Intensity/Depth Moderate Body Position Supine PT-OP-T Assessment and Plan Start: 10/04/21 16:21 Freq: Status: Active Protocol: Document 11/30/21 15:21 AW (Rec: 11/30/21 17:08 AW [id number]) Physical Therapy Assessment Goals Five Impairment LEFS Group Home Goal (LTG) Pt will score 60/80 or greater on LEFS to demonstrate improvement in daily function. LTG Duration 02/14/22 Four Impairment decreased balance Short Term Goal (STG) Pt will score 19 or higher on Tinetti. 11/23/21 - GOAL MET. STG Duration 5 weeks - 11/09/21 GOAL MET Stone Fabricator Goal (LTG) Pt will score within age- matched norms on Dynamic Gait Index as a measure of reduced falls risk. LTG Duration 10 weeks - 12/14/21 Three Impairment BLE strength Short Term Goal (STG) Pt will rise from a 21 tall surface without use of hands 11/21/21: requires use of BUE to come to standing, elevated black table, not measurered. 11/23/21 - Pt can rise from 20 mat without use of hands 4 times. STG Duration 5 weeks - 11/09/21 11/23/21 - GOAL MET Group Home Goal (LTG) Pt will complete 5 Time Sit to Stand from a standard height chair without use of hands in 15 seconds or less as a measure of improved BLE strength and power. LTG Duration 10 weeks - 12/14/21 Two Impairment needs assistive device, gait speed Short Term Goal (STG) Pt will walk 1100 feet on 6MWT with SPC or LRAD as a measure of improved efficiency in gait. 11/23/21 - Pt ambulates 633 feet in six min with FWW . Continue toward goal STG Duration 5 weeks - 01/13/22 Stone Fabricator Goal (LTG) Pt will walk 1200 feet or greater on 6MWT with SPC or no AD as a measure of improved gait speed for safe community ambulation. LTG Duration 02/14/22 One Impairment lacks HEP Short Term Goal (STG) Pt will be instructed in HEP for BLE strength and ROM within hip precautions 11/21/21: progressing: side clam w/ pillow, bridge w/ TB, STS with band, LAQ, band walk, heel raises, seated hip abd TB . STG Duration 5 weeks - 11/09/21 (progressing : 11/21/21) LTG Duration 10 weeks - 12/14/21 Assessment Summary Assessment Pt fatigued and sore today. She tolerated gait with SPC but could not engage in much exercise. She did show good effort with supine exercise and responded well to instruction to keep moving and engage with HEP over the weekend. Physical Therapy Plan Frequency and Duration Frequency of Treatment 2x/Week Duration of Treatment 3 months Plan of Care Start Date 11/23/21 Plan of Care End Date 02/14/22 Therapeutic Interventions Therapeutic Interventions Balance Training,Gait Training ,Home Exercise Program,Manual Therapy,Neuromuscular Re- education,Self-Care/Home Management,Soft Tissue Mobilization,Therapeutic Activities,Therapeutic Exercises Modalities Cold Pack/Ice Massage,Hot Packs Next Visit Focus/Plan Next Note Type Treatment Note Next Visit Plan Continue hip abd strengthening , check if got L knee brace for support/ alignment. POC: Progress strength and balance as able. Continue gait training with SPC.
--- NOTE | 2021-12-13 16:00 | PT.OTN ---
Current Diagnoses Difficulty in walking, not elsewhere classified (12/13/21) Other symptoms and signs involving the musculoskeletal system (12/13/21) Presence of right artificial hip joint (12/13/21) Physical Therapy Treatment Note PT-OP-A Visit Information Start: 10/04/21 16:21 Freq: Status: Active Protocol: Document 12/13/21 13:20 AMB (Rec: 12/13/21 13:48 AMB [id number]) Out-Patient Physical Therapy Visit Information Visit Information Visit Type Treatment Note Visit Start Time 13:00 Visit Stop Time 13:45 Total Visit Minutes 45 Visit Number 14 PT-OP-B Current Condition Start: 10/04/21 16:21 Freq: Status: Active Protocol: Document 10/05/21 15:15 AW (Rec: 10/05/21 13:25 AW [id number]) Current Condition History of Current Condition Onset Date July 2021 Current Complaints decreased strength and balance s/p R JOHN posterior approach History of Current Condition Chayo had R posterior hip replacement >2 months ago, went home with home health. She had a good experience with home health and is having no significant pain. She now walks with 4WW nearly 100% of the time and can walk at least 1000 feet in <10 minutes. She does best with good ankle support. She had at least three bad falls before surgery which makes her hesitant to walk without a walker. 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 Prior Treatments and Tests Previous PT for back, hip, and knee pain Treatment Goals Patient/Caregiver Goals Pt would like to walk without assistive device. Thinks she needs to unlearn gait compensations. Current Functional Impairments (Reported) Functional Limitations- Other Difficulty walking without 4WW . Uses 4WW to be able to transport objects while cooking or doing other tasks. Personal Factors Other Personal Factors That May Effect Ovarian CA, breast CA, Therapy/Recovery hypertension, BMI 39.5 PT-OP-C Subjective Start: 10/04/21 16:21 Freq: Status: Active Protocol: Document 12/13/21 13:00 AMB (Rec: 12/13/21 15:58 AMB [id number]) OP-PT Subjective Patient Comments Patient Comments Pt is going to go to the recoverer to check feet. L knee and shoulders are problematic. PT-OP-D Balance Start: 10/04/21 16:21 Freq: Status: Active Protocol: Document 10/05/21 15:15 AW (Rec: 10/08/21 16:40 AW [id number]) Tinetti Balance Assessment Sitting Balance Sitting Balance Steady, safe Arising from Chair Attempts to Arise Able, requires >1 attempt Standing Balance Immediate Standing Balance Steady w/o support Standing Balance Steady, wide stance Nudged Response Staggers, catches self Standing with Eyes Closed Unsteady Turning Step Pattern Turning 360 Degrees Continuous steps Stability Turning 360 Degrees Unsteady, grabs/staggers Sitting Down Sitting Down Uses arms or unsteady Gait and Step Initiation of Gait No hesitancy Right Foot Step Length Does not pass stance ft. Right Foot Step Height Completely clears floor Left Foot Step Length Does not pass stance foot Left Foot Step Height Completely clears floor Step Description Step Symmetry Step length appears equal Step Continuity Steps appear continuous Gait Description Path Description Mild/moderate deviation Trunk Description Marked sway or uses aide Walking Stance Heels together Scoring and Interpretation Tinetti Composite Score (points) 15 Interpretation of Scores High risk for falls(< 19) Tinetti Impairment Rating from Composite 40 to <60% Impaired (Score 12- Score 16) PT-OP-E Functional Tests Start: 10/04/21 16:21 Freq: Status: Active Protocol: Document 10/05/21 15:15 AW (Rec: 10/08/21 16:40 AW [id number]) Functional Tests 2 Minute Walk Test Distance 190 feet in 101 seconds Device Used 4WW Comments average gait speed 0.57 m/s PT-OP-F Manual Assessment Start: 10/04/21 16:21 Freq: Status: Active Protocol: Document 10/05/21 15:15 AW (Rec: 10/08/21 16:41 AW [id number]) Manual Assessments Soft Tissue Assessment Soft Tissue Mobility Assessment R posterior JOHN scar with fair mobility, some evidence of adhesion. PT-OP-G Mobility & Gait Start: 10/04/21 16:21 Freq: Status: Active Protocol: Document 10/05/21 15:15 AW (Rec: 10/08/21 16:40 AW [id number]) OP Mobility Evaluation Transfers Sit to Stand Requires use of UE to stand from plinth at 23 height. OP Gait Assessment Gait Gait Assistance Required: Standby Assistance Distance (Feet) 190 Assistive Devices Assistive Device 4 Wheeled Walker Orthotic/Prosthetic Devices or Brace: No Gait Deviations General Gait Pattern Antalgic,Decreased Stride Length,Decreased Feet Clearance,Flexed Trunk,Lateral Trunk Lean Comments Gait Comments Gait notable for leftward lean and decreased right foot clearance. Bilateral knee valgus apparent with L more affected than R Stair Climbing Evaluation Evaluation Level of Assist On Stairs Standby Assistance Devices Stair Climbing Assistive Devices Left Railing,Right Railing Technique/Endurance Stair Climbing Direction Ascend and Descend Stair Climbing Technique Step to Step PT-OP-K Range of Motion Start: 10/04/21 16:21 Freq: Status: Active Protocol: Document 10/05/21 15:15 AW (Rec: 10/08/21 16:51 AW [id number]) Hip Goniometric Range of Motion Hip Right Hip ROM WFL Yes Testing Position Supine Comments No restriction within precautions. End range flexion and IR not tested. PT-OP-M Strength Start: 10/04/21 16:21 Freq: Status: Active Protocol: Document 10/05/21 15:15 AW (Rec: 10/08/21 16:51 AW [id number]) Hip Strength Hip Manual Muscle Testing Left Flexion (L2) 4 Good Extension (S1) 3+ Fair+ Abduction 4 Good Right Flexion (L2) 4- Good- Extension (S1) 3+ Fair+ Abduction 4- Good- Knee Strength Knee Manual Muscle Testing Left Flexion (S2) 4+ Good+ Extension (L3) 4+ Good+ Comments Pain with all resisted movement on the left knee. Right Flexion (S2) 4 Good Extension (L3) 4+ Good+ Ankle/Foot Strength Ankle and Foot Manual Muscle Testing bilateral Dorsiflexion (L4) 4+ Good+ Plantarflexion (S1) 4 Good PT-OP-Q Treatments Start: 10/04/21 16:21 Freq: Status: Active Protocol: Document 12/13/21 13:00 AMB (Rec: 12/13/21 15:58 AMB [id number]) Gym Equipment Shuttle Recovery Bilateral Heel Raises Resistance 50 Reps/Time 2x10 Bilateral Squats Details min cues L>R knee hip ER alignment knees apart Resistance 50 Shuttle Recovery Platform Stable Reps/Time 2x20 Therapeutic Exercises Sidelying Exercises Clamshell Sidelying Exercise Name [facility] Side bilateral Resistance TB2 Equipment Used sidelying Reps/Minutes 2x10 Sitting Exercises PF with t band Resistance #3 band Equipment Used 2x10 Comments ankle Standing Exercises heel raises Side bilateral Reps/Minutes 15 Gait Training Gait Activity SPC Description Gait training Device Used SPC Level of Assistance SBA Distance/Duration 180', 90' Treatment Focus knee alignment, hip abd fac Comments Cued alignment, hip abd facilitation. Patterning and fluidity have improved. Encouraged for balance, decreasing weightbearing on SPC. Manual Therapy Treatment Soft Tissue Mobilization retrograde STM Body Location L quad, patella tendon, VMO Mobilization Type Myofascial Release Intensity/Depth Superficial Body Position Hooklying Comments manual, good response, decrease swelling L knee PT-OP-T Assessment and Plan Start: 10/04/21 16:21 Freq: Status: Active Protocol: Document 12/13/21 13:20 AMB (Rec: 12/13/21 13:48 AMB [id number]) Physical Therapy Assessment Goals Five Impairment LEFS Care Home Goal (LTG) Pt will score 60/80 or greater on LEFS to demonstrate improvement in daily function. LTG Duration 02/14/22 Four Impairment decreased balance Short Term Goal (STG) Pt will score 19 or higher on Tinetti. 11/23/21 - GOAL MET. STG Duration 5 weeks - 11/09/21 GOAL MET Facilities Custodian Goal (LTG) Pt will score within age- matched norms on Dynamic Gait Index as a measure of reduced falls risk. LTG Duration 10 weeks - 12/14/21 Three Impairment BLE strength Short Term Goal (STG) Pt will rise from a 21 tall surface without use of hands 11/21/21: requires use of BUE to come to standing, elevated black table, not measurered. 11/23/21 - Pt can rise from 20 mat without use of hands 4 times. STG Duration 5 weeks - 11/09/21 11/23/21 - GOAL MET Facilities Custodian Goal (LTG) Pt will complete 5 Time Sit to Stand from a standard height chair without use of hands in 15 seconds or less as a measure of improved BLE strength and power. LTG Duration 10 weeks - 12/14/21 Two Impairment needs assistive device, gait speed Short Term Goal (STG) Pt will walk 1100 feet on 6MWT with SPC or LRAD as a measure of improved efficiency in gait. 11/23/21 - Pt ambulates 633 feet in six min with FWW . Continue toward goal STG Duration 5 weeks - 01/13/22 Facilities Custodian Goal (LTG) Pt will walk 1200 feet or greater on 6MWT with SPC or no AD as a measure of improved gait speed for safe community ambulation. LTG Duration 02/14/22 One Impairment lacks HEP Short Term Goal (STG) Pt will be instructed in HEP for BLE strength and ROM within hip precautions 11/21/21: progressing: side clam w/ pillow, bridge w/ TB, STS with band, LAQ, band walk, heel raises, seated hip abd TB . STG Duration 5 weeks - 11/09/21 (progressing : 11/21/21) LTG Duration 10 weeks - 12/14/21 Assessment Summary Assessment Pt tolerated treatment well, focused on gait, swelling, and calf/hip abductor strengthening. Physical Therapy Plan Next Visit Focus/Plan Next Note Type Treatment Note Next Visit Plan Continue hip abd strengthening , check if got L knee brace for support/ alignment. POC: Progress strength and balance as able. Continue gait training with SPC.
--- NOTE | 2021-12-25 19:35 | PT.OTN ---
Current Diagnoses Difficulty in walking, not elsewhere classified (12/25/21) Other symptoms and signs involving the musculoskeletal system (12/25/21) Presence of right artificial hip joint (12/25/21) Physical Therapy Treatment Note PT-OP-A Visit Information Start: 10/04/21 16:21 Freq: Status: Active Protocol: Document 12/25/21 13:43 NBM (Rec: 12/25/21 14:35 NBM [id number]) Out-Patient Physical Therapy Visit Information Visit Information Visit Type Treatment Note Visit Start Time 13:45 Visit Stop Time 14:25 Total Visit Minutes 40 Visit Number 15 PT-OP-B Current Condition Start: 10/04/21 16:21 Freq: Status: Active Protocol: Document 10/05/21 15:15 AW (Rec: 10/05/21 13:25 AW [id number]) Current Condition History of Current Condition Onset Date July 2021 Current Complaints decreased strength and balance s/p R JOHN posterior approach History of Current Condition Chayo had R posterior hip replacement >2 months ago, went home with home health. She had a good experience with home health and is having no significant pain. She now walks with 4WW nearly 100% of the time and can walk at least 1000 feet in <10 minutes. She does best with good ankle support. She had at least three bad falls before surgery which makes her hesitant to walk without a walker. 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 Prior Treatments and Tests Previous PT for back, hip, and knee pain Treatment Goals Patient/Caregiver Goals Pt would like to walk without assistive device. Thinks she needs to unlearn gait compensations. Current Functional Impairments (Reported) Functional Limitations- Other Difficulty walking without 4WW . Uses 4WW to be able to transport objects while cooking or doing other tasks. Personal Factors Other Personal Factors That May Effect Ovarian CA, breast CA, Therapy/Recovery hypertension, BMI 39.5 PT-OP-C Subjective Start: 10/04/21 16:21 Freq: Status: Active Protocol: Document 12/25/21 13:43 NBM (Rec: 12/25/21 19:34 NBM [id number]) OP-PT Subjective Patient Comments Patient Comments Pt arrives w/ FWW and L knee brace for fitting. She states she is going to go to the floor space allocator to check feet. She is doing her exercises. PT-OP-D Balance Start: 10/04/21 16:21 Freq: Status: Active Protocol: Document 10/05/21 15:15 AW (Rec: 10/08/21 16:40 AW [id number]) Tinetti Balance Assessment Sitting Balance Sitting Balance Steady, safe Arising from Chair Attempts to Arise Able, requires >1 attempt Standing Balance Immediate Standing Balance Steady w/o support Standing Balance Steady, wide stance Nudged Response Staggers, catches self Standing with Eyes Closed Unsteady Turning Step Pattern Turning 360 Degrees Continuous steps Stability Turning 360 Degrees Unsteady, grabs/staggers Sitting Down Sitting Down Uses arms or unsteady Gait and Step Initiation of Gait No hesitancy Right Foot Step Length Does not pass stance ft. Right Foot Step Height Completely clears floor Left Foot Step Length Does not pass stance foot Left Foot Step Height Completely clears floor Step Description Step Symmetry Step length appears equal Step Continuity Steps appear continuous Gait Description Path Description Mild/moderate deviation Trunk Description Marked sway or uses aide Walking Stance Heels together Scoring and Interpretation Tinetti Composite Score (points) 15 Interpretation of Scores High risk for falls(< 19) Tinetti Impairment Rating from Composite 40 to <60% Impaired (Score 12- Score 16) PT-OP-E Functional Tests Start: 10/04/21 16:21 Freq: Status: Active Protocol: Document 10/05/21 15:15 AW (Rec: 10/08/21 16:40 AW [id number]) Functional Tests 2 Minute Walk Test Distance 190 feet in 101 seconds Device Used 4WW Comments average gait speed 0.57 m/s PT-OP-F Manual Assessment Start: 10/04/21 16:21 Freq: Status: Active Protocol: Document 10/05/21 15:15 AW (Rec: 10/08/21 16:41 AW [id number]) Manual Assessments Soft Tissue Assessment Soft Tissue Mobility Assessment R posterior JOHN scar with fair mobility, some evidence of adhesion. PT-OP-G Mobility & Gait Start: 10/04/21 16:21 Freq: Status: Active Protocol: Document 10/05/21 15:15 AW (Rec: 10/08/21 16:40 AW [id number]) OP Mobility Evaluation Transfers Sit to Stand Requires use of UE to stand from plinth at 23 height. OP Gait Assessment Gait Gait Assistance Required: Standby Assistance Distance (Feet) 190 Assistive Devices Assistive Device 4 Wheeled Walker Orthotic/Prosthetic Devices or Brace: No Gait Deviations General Gait Pattern Antalgic,Decreased Stride Length,Decreased Feet Clearance,Flexed Trunk,Lateral Trunk Lean Comments Gait Comments Gait notable for leftward lean and decreased right foot clearance. Bilateral knee valgus apparent with L more affected than R Stair Climbing Evaluation Evaluation Level of Assist On Stairs Standby Assistance Devices Stair Climbing Assistive Devices Left Railing,Right Railing Technique/Endurance Stair Climbing Direction Ascend and Descend Stair Climbing Technique Step to Step PT-OP-K Range of Motion Start: 10/04/21 16:21 Freq: Status: Active Protocol: Document 10/05/21 15:15 AW (Rec: 10/08/21 16:51 AW [id number]) Hip Goniometric Range of Motion Hip Right Hip ROM WFL Yes Testing Position Supine Comments No restriction within precautions. End range flexion and IR not tested. PT-OP-M Strength Start: 10/04/21 16:21 Freq: Status: Active Protocol: Document 10/05/21 15:15 AW (Rec: 10/08/21 16:51 AW [id number]) Hip Strength Hip Manual Muscle Testing Left Flexion (L2) 4 Good Extension (S1) 3+ Fair+ Abduction 4 Good Right Flexion (L2) 4- Good- Extension (S1) 3+ Fair+ Abduction 4- Good- Knee Strength Knee Manual Muscle Testing Left Flexion (S2) 4+ Good+ Extension (L3) 4+ Good+ Comments Pain with all resisted movement on the left knee. Right Flexion (S2) 4 Good Extension (L3) 4+ Good+ Ankle/Foot Strength Ankle and Foot Manual Muscle Testing bilateral Dorsiflexion (L4) 4+ Good+ Plantarflexion (S1) 4 Good PT-OP-Q Treatments Start: 10/04/21 16:21 Freq: Status: Active Protocol: Document 12/25/21 13:43 NBM (Rec: 12/25/21 14:35 NBM [id number]) Therapeutic Exercises Sitting Exercises PF with t band Resistance #3 band Equipment Used 2x10 Comments ankle hip abd Sitting Exercise Name added to HEP Side bilateral Resistance TB #3 (hold straight band at side thighs after tie) Reps/Minutes 2x10 Comments good form after shown. LAQ Sitting Exercise Name LAQ w/ ankle EV neutral Side left Resistance AROM> #2 Reps/Minutes 2x5 reps Comments reported discomfort over patellar tendon with wt, better AROM Hamstring curl Sitting Exercise Name HS Curl Side bilateral Resistance Lv 3 Standing Exercises band walk Standing Exercise Name reviewed: lat stepping Side bilateral Resistance TB3 at ankles Equipment Used 2 HR Reps/Minutes 1 lap, 10 ft ea Comments cued toes fwd, hip ext ( popping L knee going L) Other Exercises sit to stand Other Exercise Name sit to stand Resistance Lvl 1 TB above knees for biofeedback Equipment Used mesh chair, 1 x 8 w/ L knee brace Comments no UE, vc for controlled descent; form improved w/ Lvl 1 TB above knees Gait Training Gait Activity FWW Description w/ L knee brace Device Used FWW, mirror Level of Assistance S Surface firm Treatment Focus upright posture, hip/knee flexion, widen DARCI Comments cues for FWW proximity, upright posture, lateral sway Self-Care/Home Management Treatment Education Patient Education Joint Protection Other Education Pt brought L knee brace from home. Performed fitting and education with Flexion 150 deg Extension 20 deg. That feels good. PT-OP-T Assessment and Plan Start: 10/04/21 16:21 Freq: Status: Active Protocol: Document 12/25/21 13:43 [facility] (Rec: 12/25/21 14:35 [facility] [id number]) Physical Therapy Assessment Goals Five Impairment LEFS Skilled Nursing Goal (LTG) Pt will score 60/80 or greater on LEFS to demonstrate improvement in daily function. LTG Duration 02/14/22 Four Impairment decreased balance Short Term Goal (STG) Pt will score 19 or higher on Tinetti. 11/23/21 - GOAL MET. STG Duration 5 weeks - 11/09/21 GOAL MET Skilled Nursing Goal (LTG) Pt will score within age- matched norms on Dynamic Gait Index as a measure of reduced falls risk. LTG Duration 10 weeks - 12/14/21 Three Impairment BLE strength Short Term Goal (STG) Pt will rise from a 21 tall surface without use of hands 11/21/21: requires use of BUE to come to standing, elevated black table, not measurered. 11/23/21 - Pt can rise from 20 mat without use of hands 4 times. STG Duration 5 weeks - 11/09/21 11/23/21 - GOAL MET Senior Cyber Intelligence Analyst Goal (LTG) Pt will complete 5 Time Sit to Stand from a standard height chair without use of hands in 15 seconds or less as a measure of improved BLE strength and power. LTG Duration 10 weeks - 12/14/21 Two Impairment needs assistive device, gait speed Short Term Goal (STG) Pt will walk 1100 feet on 6MWT with SPC or LRAD as a measure of improved efficiency in gait. 11/23/21 - Pt ambulates 633 feet in six min with FWW . Continue toward goal STG Duration 5 weeks - 01/13/22 Skilled Nursing Goal (LTG) Pt will walk 1200 feet or greater on 6MWT with SPC or no AD as a measure of improved gait speed for safe community ambulation. LTG Duration 02/14/22 One Impairment lacks HEP Short Term Goal (STG) Pt will be instructed in HEP for BLE strength and ROM within hip precautions 11/21/21: progressing: side clam w/ pillow, bridge w/ TB, STS with band, LAQ, band walk, heel raises, seated hip abd TB . STG Duration 5 weeks - 11/09/21 (progressing : 11/21/21) LTG Duration 10 weeks - 12/14/21 Assessment Summary Assessment Pt arrives w/ new L knee brace requesting fitting. Adjusted settings to Flexion 150 deg's, Extension 20 deg's per patient's preference when trialed w/ FWW. Pt is challenged w/ upright posture, lateral lean, hip/knee flexion and knee valgus with ambulation - improved self- awareness demosntrated w/ mirror. Physical Therapy Plan Next Visit Focus/Plan Next Note Type Treatment Note Next Visit Plan Continue hip abd strengthening , recheck L knee brace for support/ alignment. POC: Progress strength and balance as able. Continue gait training with SPC.
--- NOTE | 2021-12-28 15:15 | PT.OTN ---
Current Diagnoses Difficulty in walking, not elsewhere classified (12/28/21) Other symptoms and signs involving the musculoskeletal system (12/28/21) Presence of right artificial hip joint (12/28/21) Physical Therapy Treatment Note PT-OP-A Visit Information Start: 10/04/21 16:21 Freq: Status: Active Protocol: Document 12/28/21 14:32 SP (Rec: 12/28/21 15:37 SP [id number]) Out-Patient Physical Therapy Visit Information Visit Information Visit Type Treatment Note Visit Start Time 14:32 Visit Stop Time 15:15 Total Visit Minutes 43 Visit Number 16 Number of PERSONNEL ADMINISTRATOR Visits 1 Precautions Precautions posterior R JOHN 07/28/21 PT-OP-B Current Condition Start: 10/04/21 16:21 Freq: Status: Active Protocol: Document 10/05/21 15:15 AW (Rec: 10/05/21 13:25 AW [id number]) Current Condition History of Current Condition Onset Date July 2021 Current Complaints decreased strength and balance s/p R JOHN posterior approach History of Current Condition Chayo had R posterior hip replacement >2 months ago, went home with home health. She had a good experience with home health and is having no significant pain. She now walks with 4WW nearly 100% of the time and can walk at least 1000 feet in <10 minutes. She does best with good ankle support. She had at least three bad falls before surgery which makes her hesitant to walk without a walker. 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 Prior Treatments and Tests Previous PT for back, hip, and knee pain Treatment Goals Patient/Caregiver Goals Pt would like to walk without assistive device. Thinks she needs to unlearn gait compensations. Current Functional Impairments (Reported) Functional Limitations- Other Difficulty walking without 4WW . Uses 4WW to be able to transport objects while cooking or doing other tasks. Personal Factors Other Personal Factors That May Effect Ovarian CA, breast CA, Therapy/Recovery hypertension, BMI 39.5 PT-OP-C Subjective Start: 10/04/21 16:21 Freq: Status: Active Protocol: Document 12/28/21 14:32 SP (Rec: 12/28/21 15:37 SP [id number]) OP-PT Subjective Patient Comments Patient Comments Pt arrived with L knee brace, required assistance to don dueto challenging with dexitarity with ability to fasten it self. Pt going to look into [place] sneakers at [employer], feedback from friend helped with her LE alignment, also come in wide. PT-OP-D Balance Start: 10/04/21 16:21 Freq: Status: Active Protocol: Document 10/05/21 15:15 AW (Rec: 10/08/21 16:40 AW [id number]) Tinetti Balance Assessment Sitting Balance Sitting Balance Steady, safe Arising from Chair Attempts to Arise Able, requires >1 attempt Standing Balance Immediate Standing Balance Steady w/o support Standing Balance Steady, wide stance Nudged Response Staggers, catches self Standing with Eyes Closed Unsteady Turning Step Pattern Turning 360 Degrees Continuous steps Stability Turning 360 Degrees Unsteady, grabs/staggers Sitting Down Sitting Down Uses arms or unsteady Gait and Step Initiation of Gait No hesitancy Right Foot Step Length Does not pass stance ft. Right Foot Step Height Completely clears floor Left Foot Step Length Does not pass stance foot Left Foot Step Height Completely clears floor Step Description Step Symmetry Step length appears equal Step Continuity Steps appear continuous Gait Description Path Description Mild/moderate deviation Trunk Description Marked sway or uses aide Walking Stance Heels together Scoring and Interpretation Tinetti Composite Score (points) 15 Interpretation of Scores High risk for falls(< 19) Tinetti Impairment Rating from Composite 40 to <60% Impaired (Score 12- Score 16) PT-OP-E Functional Tests Start: 10/04/21 16:21 Freq: Status: Active Protocol: Document 10/05/21 15:15 AW (Rec: 10/08/21 16:40 AW [id number]) Functional Tests 2 Minute Walk Test Distance 190 feet in 101 seconds Device Used 4WW Comments average gait speed 0.57 m/s PT-OP-F Manual Assessment Start: 10/04/21 16:21 Freq: Status: Active Protocol: Document 10/05/21 15:15 AW (Rec: 10/08/21 16:41 AW [id number]) Manual Assessments Soft Tissue Assessment Soft Tissue Mobility Assessment R posterior JOHN scar with fair mobility, some evidence of adhesion. PT-OP-G Mobility & Gait Start: 10/04/21 16:21 Freq: Status: Active Protocol: Document 10/05/21 15:15 AW (Rec: 10/08/21 16:40 AW [id number]) OP Mobility Evaluation Transfers Sit to Stand Requires use of UE to stand from plinth at 23 height. OP Gait Assessment Gait Gait Assistance Required: Standby Assistance Distance (Feet) 190 Assistive Devices Assistive Device 4 Wheeled Walker Orthotic/Prosthetic Devices or Brace: No Gait Deviations General Gait Pattern Antalgic,Decreased Stride Length,Decreased Feet Clearance,Flexed Trunk,Lateral Trunk Lean Comments Gait Comments Gait notable for leftward lean and decreased right foot clearance. Bilateral knee valgus apparent with L more affected than R Stair Climbing Evaluation Evaluation Level of Assist On Stairs Standby Assistance Devices Stair Climbing Assistive Devices Left Railing,Right Railing Technique/Endurance Stair Climbing Direction Ascend and Descend Stair Climbing Technique Step to Step PT-OP-K Range of Motion Start: 10/04/21 16:21 Freq: Status: Active Protocol: Document 10/05/21 15:15 AW (Rec: 10/08/21 16:51 AW [id number]) Hip Goniometric Range of Motion Hip Right Hip ROM WFL Yes Testing Position Supine Comments No restriction within precautions. End range flexion and IR not tested. PT-OP-M Strength Start: 10/04/21 16:21 Freq: Status: Active Protocol: Document 10/05/21 15:15 AW (Rec: 10/08/21 16:51 AW [id number]) Hip Strength Hip Manual Muscle Testing Left Flexion (L2) 4 Good Extension (S1) 3+ Fair+ Abduction 4 Good Right Flexion (L2) 4- Good- Extension (S1) 3+ Fair+ Abduction 4- Good- Knee Strength Knee Manual Muscle Testing Left Flexion (S2) 4+ Good+ Extension (L3) 4+ Good+ Comments Pain with all resisted movement on the left knee. Right Flexion (S2) 4 Good Extension (L3) 4+ Good+ Ankle/Foot Strength Ankle and Foot Manual Muscle Testing bilateral Dorsiflexion (L4) 4+ Good+ Plantarflexion (S1) 4 Good PT-OP-Q Treatments Start: 10/04/21 16:21 Freq: Status: Active Protocol: Document 12/28/21 14:32 SP (Rec: 12/28/21 15:37 SP [id number]) Gym Equipment Shuttle Recovery Unilateral Squats Details occasional cue knee with toes (L knee ER/ABD align) Resistance 25#>37# Shuttle Recovery Platform Stable Reps/Time x20 each LE Bilateral Squats Details min cues L>R knee hip ER alignment knees apart Resistance 50#> 62# Shuttle Recovery Platform Stable Reps/Time x20 Therapeutic Exercises Sitting Exercises PF with t band Sitting Exercise Name PF, EV- reviewed HEP Side left Resistance #3 band Equipment Used 2x10 Comments good effort LAQ Sitting Exercise Name LAQ w/ ankle EV neutral- added to HEP Side left Resistance AROM> #1 loop (provided loop) Reps/Minutes 2x5 reps Comments good effort, painfree- PERSONNEL ADMINISTRATOR assisted don band, stated can help Hamstring curl Sitting Exercise Name HS Curl- added to HEP Side bilateral Resistance Lv 3 Equipment Used seated fully back in chair Reps/Minutes 2x10 Comments provided TB and loop discussed anchor door or Other Exercises sit to stand Other Exercise Name sit to stand Resistance Lvl 1 TB above knees for biofeedback Equipment Used mesh chair x 3 w/ L knee brace , green chair unable ascend, needed PERSONNEL ADMINISTRATOR A. Reps/Minutes x2 reps Comments cued front chair, hip hinge Gait Training Gait Activity SPC Description Gait training Device Used SPC Level of Assistance close SBA- CGA Surface Gait over uneven gravel, incline/ decline Distance/Duration 193 ft, 79 ft Treatment Focus knee alignment, hip abd and glut fac Comments Cued alignment as needed, hip extension push off up incline, contact wall on L w/ SPC in RUE descend incline, tiring mid distance on gravel, seated rest on picnic bench. Encouraged for balance, decreasing weightbearing on SPC. PT-OP-T Assessment and Plan Start: 10/04/21 16:21 Freq: Status: Active Protocol: Document 12/28/21 14:32 SP (Rec: 12/28/21 15:37 SP [id number]) Physical Therapy Assessment Goals Five Impairment LEFS Asphalt Mixer Goal (LTG) Pt will score 60/80 or greater on LEFS to demonstrate improvement in daily function. LTG Duration 02/14/22 Four Impairment decreased balance Short Term Goal (STG) Pt will score 19 or higher on Tinetti. 11/23/21 - GOAL MET. STG Duration 5 weeks - 11/09/21 GOAL MET Asphalt Mixer Goal (LTG) Pt will score within age- matched norms on Dynamic Gait Index as a measure of reduced falls risk. LTG Duration 10 weeks - 12/14/21 Three Impairment BLE strength Short Term Goal (STG) Pt will rise from a 21 tall surface without use of hands 11/21/21: requires use of BUE to come to standing, elevated black table, not measurered. 11/23/21 - Pt can rise from 20 mat without use of hands 4 times. STG Duration 5 weeks - 11/09/21 11/23/21 - GOAL MET Jail Goal (LTG) Pt will complete 5 Time Sit to Stand from a standard height chair without use of hands in 15 seconds or less as a measure of improved BLE strength and power. LTG Duration 10 weeks - 12/14/21 Two Impairment needs assistive device, gait speed Short Term Goal (STG) Pt will walk 1100 feet on 6MWT with SPC or LRAD as a measure of improved efficiency in gait. 11/23/21 - Pt ambulates 633 feet in six min with FWW . Continue toward goal STG Duration 5 weeks - 01/13/22 Jail Goal (LTG) Pt will walk 1200 feet or greater on 6MWT with SPC or no AD as a measure of improved gait speed for safe community ambulation. LTG Duration 02/14/22 One Impairment lacks HEP Short Term Goal (STG) Pt will be instructed in HEP for BLE strength and ROM within hip precautions 11/21/21: progressing: side clam w/ pillow, bridge w/ TB, STS with band, LAQ, band walk, heel raises, seated hip abd TB . STG Duration 5 weeks - 11/09/21 (progressing : 11/21/21) LTG Duration 10 weeks - 12/14/21 Assessment Summary Assessment Pt challenged with donning L knee fastened front brace, slid down during tx. Discussed check [employer] for proper sizing vs one size fits all and slide on with added straps for independence with pt agreement. Doffed before left tx. Pt able to increase distance gait over uneven gravel and ascend/descend incline back MAP bldg with contact for safety. Discussed wearing footware that support back heel for safety. Pt stated L knee brace does give knee alignment support while walking. Physical Therapy Plan Frequency and Duration Frequency of Treatment 2x/Week Duration of Treatment 3 months Plan of Care Start Date 11/23/21 Plan of Care End Date 02/14/22 Therapeutic Interventions Therapeutic Interventions Balance Training,Gait Training ,Home Exercise Program,Manual Therapy,Neuromuscular Re- education,Self-Care/Home Management,Soft Tissue Mobilization,Therapeutic Activities,Therapeutic Exercises Modalities Cold Pack/Ice Massage,Hot Packs Next Visit Focus/Plan Next Note Type Treatment Note Next Visit Plan Continue hip abd strengthening , recheck L knee brace if got new one and check full foot supporting sneakers (nicole mentioned last tx 12/28) POC: Progress strength and balance as able. Continue gait training with SPC.
--- NOTE | 2022-01-01 18:52 | PT.OTN ---
Current Diagnoses Difficulty in walking, not elsewhere classified (01/01/22) Other symptoms and signs involving the musculoskeletal system (01/01/22) Presence of right artificial hip joint (01/01/22) Physical Therapy Treatment Note PT-OP-A Visit Information Start: 10/04/21 16:21 Freq: Status: Active Protocol: Document 01/01/22 13:46 NBM (Rec: 01/01/22 18:52 NBM [id number]) Out-Patient Physical Therapy Visit Information Visit Information Visit Type Treatment Note Visit Start Time 13:45 Visit Stop Time 14:28 Total Visit Minutes 43 Visit Number 17 Number of PC TECH Visits 2 PT-OP-B Current Condition Start: 10/04/21 16:21 Freq: Status: Active Protocol: Document 10/05/21 15:15 AW (Rec: 10/05/21 13:25 AW [id number]) Current Condition History of Current Condition Onset Date July 2021 Current Complaints decreased strength and balance s/p R JOHN posterior approach History of Current Condition Chayo had R posterior hip replacement >2 months ago, went home with home health. She had a good experience with home health and is having no significant pain. She now walks with 4WW nearly 100% of the time and can walk at least 1000 feet in <10 minutes. She does best with good ankle support. She had at least three bad falls before surgery which makes her hesitant to walk without a walker. 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 Prior Treatments and Tests Previous PT for back, hip, and knee pain Treatment Goals Patient/Caregiver Goals Pt would like to walk without assistive device. Thinks she needs to unlearn gait compensations. Current Functional Impairments (Reported) Functional Limitations- Other Difficulty walking without 4WW . Uses 4WW to be able to transport objects while cooking or doing other tasks. Personal Factors Other Personal Factors That May Effect Ovarian CA, breast CA, Therapy/Recovery hypertension, BMI 39.5 PT-OP-C Subjective Start: 10/04/21 16:21 Freq: Status: Active Protocol: Document 01/01/22 13:46 NBM (Rec: 01/01/22 18:52 NBM [id number]) OP-PT Subjective Patient Comments Patient Comments Pt arrives with FWW and no brace - she has ordered a simpler one. She has a back tender cylinder apt 8/4. She went on a trip over the weekend with her cane and thinks she over did it. Her L knee has pain 07/27 and she reports it is swollen. She noticed her shoulder pain is less since using the cane and now with the walker she holds it closer and is not leaning on it. PT-OP-D Balance Start: 10/04/21 16:21 Freq: Status: Active Protocol: Document 10/05/21 15:15 AW (Rec: 10/08/21 16:40 AW [id number]) Tinetti Balance Assessment Sitting Balance Sitting Balance Steady, safe Arising from Chair Attempts to Arise Able, requires >1 attempt Standing Balance Immediate Standing Balance Steady w/o support Standing Balance Steady, wide stance Nudged Response Staggers, catches self Standing with Eyes Closed Unsteady Turning Step Pattern Turning 360 Degrees Continuous steps Stability Turning 360 Degrees Unsteady, grabs/staggers Sitting Down Sitting Down Uses arms or unsteady Gait and Step Initiation of Gait No hesitancy Right Foot Step Length Does not pass stance ft. Right Foot Step Height Completely clears floor Left Foot Step Length Does not pass stance foot Left Foot Step Height Completely clears floor Step Description Step Symmetry Step length appears equal Step Continuity Steps appear continuous Gait Description Path Description Mild/moderate deviation Trunk Description Marked sway or uses aide Walking Stance Heels together Scoring and Interpretation Tinetti Composite Score (points) 15 Interpretation of Scores High risk for falls(< 19) Tinetti Impairment Rating from Composite 40 to <60% Impaired (Score 12- Score 16) PT-OP-E Functional Tests Start: 10/04/21 16:21 Freq: Status: Active Protocol: Document 10/05/21 15:15 AW (Rec: 10/08/21 16:40 AW [id number]) Functional Tests 2 Minute Walk Test Distance 190 feet in 101 seconds Device Used 4WW Comments average gait speed 0.57 m/s PT-OP-F Manual Assessment Start: 10/04/21 16:21 Freq: Status: Active Protocol: Document 10/05/21 15:15 AW (Rec: 10/08/21 16:41 AW [id number]) Manual Assessments Soft Tissue Assessment Soft Tissue Mobility Assessment R posterior JOHN scar with fair mobility, some evidence of adhesion. PT-OP-G Mobility & Gait Start: 10/04/21 16:21 Freq: Status: Active Protocol: Document 10/05/21 15:15 AW (Rec: 10/08/21 16:40 AW [id number]) OP Mobility Evaluation Transfers Sit to Stand Requires use of UE to stand from plinth at 23 height. OP Gait Assessment Gait Gait Assistance Required: Standby Assistance Distance (Feet) 190 Assistive Devices Assistive Device 4 Wheeled Walker Orthotic/Prosthetic Devices or Brace: No Gait Deviations General Gait Pattern Antalgic,Decreased Stride Length,Decreased Feet Clearance,Flexed Trunk,Lateral Trunk Lean Comments Gait Comments Gait notable for leftward lean and decreased right foot clearance. Bilateral knee valgus apparent with L more affected than R Stair Climbing Evaluation Evaluation Level of Assist On Stairs Standby Assistance Devices Stair Climbing Assistive Devices Left Railing,Right Railing Technique/Endurance Stair Climbing Direction Ascend and Descend Stair Climbing Technique Step to Step PT-OP-K Range of Motion Start: 10/04/21 16:21 Freq: Status: Active Protocol: Document 10/05/21 15:15 AW (Rec: 10/08/21 16:51 AW [id number]) Hip Goniometric Range of Motion Hip Right Hip ROM WFL Yes Testing Position Supine Comments No restriction within precautions. End range flexion and IR not tested. PT-OP-M Strength Start: 10/04/21 16:21 Freq: Status: Active Protocol: Document 10/05/21 15:15 AW (Rec: 10/08/21 16:51 AW [id number]) Hip Strength Hip Manual Muscle Testing Left Flexion (L2) 4 Good Extension (S1) 3+ Fair+ Abduction 4 Good Right Flexion (L2) 4- Good- Extension (S1) 3+ Fair+ Abduction 4- Good- Knee Strength Knee Manual Muscle Testing Left Flexion (S2) 4+ Good+ Extension (L3) 4+ Good+ Comments Pain with all resisted movement on the left knee. Right Flexion (S2) 4 Good Extension (L3) 4+ Good+ Ankle/Foot Strength Ankle and Foot Manual Muscle Testing bilateral Dorsiflexion (L4) 4+ Good+ Plantarflexion (S1) 4 Good PT-OP-Q Treatments Start: 10/04/21 16:21 Freq: Status: Active Protocol: Document 01/01/22 13:46 NBM (Rec: 01/01/22 18:52 NBM [id number]) Therapeutic Exercises Supine Exercises HS stretch Supine Exercise Name PROM Side left Reps/Minutes 2x30 Sitting Exercises PF with t band Sitting Exercise Name PF/DF, EV/IN Side left Resistance #3 band Equipment Used 2x10 Comments cues for ankle only hip abd Side bilateral Resistance TB #3 (hold band at side thighs after tie) Reps/Minutes 2x10 LAQ Sitting Exercise Name LAQ w/ ankle EV neutral Side left Resistance AROM> #3 loop (provided loop) Reps/Minutes 2x5 reps Hamstring curl Sitting Exercise Name HS Curl Side bilateral Resistance Lv 3 Equipment Used seated fully back in chair Reps/Minutes 2x10 Manual Therapy Treatment Soft Tissue Mobilization L knee Body Location distal quads/HS, proximal gastroc Mobilization Type Rolling,Strumming,Sustained Pressure Intensity/Depth Moderate Body Position Supine vastus lateralis, ITB Body Location L distal tendons near jt line Mobilization Type Myofascial Release,Rolling, Sustained Pressure Intensity/Depth Moderate Body Position Hooklying retrograde STM Body Location L quad, patella tendon, VMO Mobilization Type Myofascial Release Intensity/Depth Superficial Body Position Hooklying Comments manual, good response, decrease swelling L knee PT-OP-R Modalities Start: 10/04/21 16:21 Freq: Status: Active Protocol: Document 01/01/22 13:46 NB (Rec: 01/01/22 18:52 [facility] [id number]) Hot Pack/Cold Pack Treatment Cold Pack Location L knee Patient Position Hooklying Treatment Duration (minutes) 10 Patient Tolerance Good Comments [place] and needs within reach PT-OP-T Assessment and Plan Start: 10/04/21 16:21 Freq: Status: Active Protocol: Document 01/01/22 13:46 [facility] (Rec: 01/01/22 18:52 [facility] [id number]) Physical Therapy Assessment Goals Five Impairment LEFS Correction Goal (LTG) Pt will score 60/80 or greater on LEFS to demonstrate improvement in daily function. LTG Duration 02/14/22 Four Impairment decreased balance Short Term Goal (STG) Pt will score 19 or higher on Tinetti. 11/23/21 - GOAL MET. STG Duration 5 weeks - 11/09/21 GOAL MET Non Destructive Testing Scientist Goal (LTG) Pt will score within age- matched norms on Dynamic Gait Index as a measure of reduced falls risk. LTG Duration 10 weeks - 12/14/21 Three Impairment BLE strength Short Term Goal (STG) Pt will rise from a 21 tall surface without use of hands 11/21/21: requires use of BUE to come to standing, elevated black table, not measurered. 11/23/21 - Pt can rise from 20 mat without use of hands 4 times. STG Duration 5 weeks - 11/09/21 11/23/21 - GOAL MET Non Destructive Testing Scientist Goal (LTG) Pt will complete 5 Time Sit to Stand from a standard height chair without use of hands in 15 seconds or less as a measure of improved BLE strength and power. LTG Duration 10 weeks - 12/14/21 Two Impairment needs assistive device, gait speed Short Term Goal (STG) Pt will walk 1100 feet on 6MWT with SPC or LRAD as a measure of improved efficiency in gait. 11/23/21 - Pt ambulates 633 feet in six min with FWW . Continue toward goal STG Duration 5 weeks - 01/13/22 Correction Goal (LTG) Pt will walk 1200 feet or greater on 6MWT with SPC or no AD as a measure of improved gait speed for safe community ambulation. LTG Duration 02/14/22 One Impairment lacks HEP Short Term Goal (STG) Pt will be instructed in HEP for BLE strength and ROM within hip precautions 11/21/21: progressing: side clam w/ pillow, bridge w/ TB, STS with band, LAQ, band walk, heel raises, seated hip abd TB . STG Duration 5 weeks - 11/09/21 (progressing : 11/21/21) LTG Duration 10 weeks - 12/14/21 Assessment Summary Assessment Pt demonstrates decreased activity tolerance today d/t L knee pain and swelling subsequent to increased activity the past few days w/ SPC. Chayo shows improved self- awareness of FWW management w/ decreased weightbearing through UE and FWW approximation. Pt will benefit from continued skilled therapeutic intervention. Physical Therapy Plan Next Visit Focus/Plan Next Note Type Treatment Note Next Visit Plan Continue hip abd strengthening , recheck L knee brace if got new one and check full foot supporting sneakers (nicole mentioned tx 12/28). Gait training w/ SPC as tolerated. POC: Progress strength and balance as able. Continue gait training with SPC.
--- NOTE | 2022-01-05 21:44 | PT.OTN ---
Current Diagnoses Difficulty in walking, not elsewhere classified (01/05/22) Other symptoms and signs involving the musculoskeletal system (01/05/22) Presence of right artificial hip joint (01/05/22) Physical Therapy Treatment Note PT-OP-A Visit Information Start: 10/04/21 16:21 Freq: Status: Active Protocol: Document 01/05/22 12:28 NBM (Rec: 01/05/22 13:42 NBM [id number]) Out-Patient Physical Therapy Visit Information Visit Information Visit Type Treatment Note Visit Start Time 12:17 Visit Stop Time 13:04 Total Visit Minutes 47 Visit Number 18 Number of SOCIAL WORKER ASSISTANT Visits 3 PT-OP-B Current Condition Start: 10/04/21 16:21 Freq: Status: Active Protocol: Document 10/05/21 15:15 AW (Rec: 10/05/21 13:25 AW [id number]) Current Condition History of Current Condition Onset Date July 2021 Current Complaints decreased strength and balance s/p R JOHN posterior approach History of Current Condition Chayo had R posterior hip replacement >2 months ago, went home with home health. She had a good experience with home health and is having no significant pain. She now walks with 4WW nearly 100% of the time and can walk at least 1000 feet in <10 minutes. She does best with good ankle support. She had at least three bad falls before surgery which makes her hesitant to walk without a walker. 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 Prior Treatments and Tests Previous PT for back, hip, and knee pain Treatment Goals Patient/Caregiver Goals Pt would like to walk without assistive device. Thinks she needs to unlearn gait compensations. Current Functional Impairments (Reported) Functional Limitations- Other Difficulty walking without 4WW . Uses 4WW to be able to transport objects while cooking or doing other tasks. Personal Factors Other Personal Factors That May Effect Ovarian CA, breast CA, Therapy/Recovery hypertension, BMI 39.5 PT-OP-C Subjective Start: 10/04/21 16:21 Freq: Status: Active Protocol: Document 01/05/22 12:28 NBM (Rec: 01/05/22 13:42 NBM [id number]) OP-PT Subjective Patient Comments Patient Comments Pt arrives with SPC and new knee brace for L knee. She reports she has been trying to use the cane more. PT-OP-D Balance Start: 10/04/21 16:21 Freq: Status: Active Protocol: Document 10/05/21 15:15 AW (Rec: 10/08/21 16:40 AW [id number]) Tinetti Balance Assessment Sitting Balance Sitting Balance Steady, safe Arising from Chair Attempts to Arise Able, requires >1 attempt Standing Balance Immediate Standing Balance Steady w/o support Standing Balance Steady, wide stance Nudged Response Staggers, catches self Standing with Eyes Closed Unsteady Turning Step Pattern Turning 360 Degrees Continuous steps Stability Turning 360 Degrees Unsteady, grabs/staggers Sitting Down Sitting Down Uses arms or unsteady Gait and Step Initiation of Gait No hesitancy Right Foot Step Length Does not pass stance ft. Right Foot Step Height Completely clears floor Left Foot Step Length Does not pass stance foot Left Foot Step Height Completely clears floor Step Description Step Symmetry Step length appears equal Step Continuity Steps appear continuous Gait Description Path Description Mild/moderate deviation Trunk Description Marked sway or uses aide Walking Stance Heels together Scoring and Interpretation Tinetti Composite Score (points) 15 Interpretation of Scores High risk for falls(< 19) Tinetti Impairment Rating from Composite 40 to <60% Impaired (Score 12- Score 16) PT-OP-E Functional Tests Start: 10/04/21 16:21 Freq: Status: Active Protocol: Document 10/05/21 15:15 AW (Rec: 10/08/21 16:40 AW [id number]) Functional Tests 2 Minute Walk Test Distance 190 feet in 101 seconds Device Used 4WW Comments average gait speed 0.57 m/s PT-OP-F Manual Assessment Start: 10/04/21 16:21 Freq: Status: Active Protocol: Document 10/05/21 15:15 AW (Rec: 10/08/21 16:41 AW [id number]) Manual Assessments Soft Tissue Assessment Soft Tissue Mobility Assessment R posterior JOHN scar with fair mobility, some evidence of adhesion. PT-OP-G Mobility & Gait Start: 10/04/21 16:21 Freq: Status: Active Protocol: Document 10/05/21 15:15 AW (Rec: 10/08/21 16:40 AW [id number]) OP Mobility Evaluation Transfers Sit to Stand Requires use of UE to stand from plinth at 23 height. OP Gait Assessment Gait Gait Assistance Required: Standby Assistance Distance (Feet) 190 Assistive Devices Assistive Device 4 Wheeled Walker Orthotic/Prosthetic Devices or Brace: No Gait Deviations General Gait Pattern Antalgic,Decreased Stride Length,Decreased Feet Clearance,Flexed Trunk,Lateral Trunk Lean Comments Gait Comments Gait notable for leftward lean and decreased right foot clearance. Bilateral knee valgus apparent with L more affected than R Stair Climbing Evaluation Evaluation Level of Assist On Stairs Standby Assistance Devices Stair Climbing Assistive Devices Left Railing,Right Railing Technique/Endurance Stair Climbing Direction Ascend and Descend Stair Climbing Technique Step to Step PT-OP-K Range of Motion Start: 10/04/21 16:21 Freq: Status: Active Protocol: Document 10/05/21 15:15 AW (Rec: 10/08/21 16:51 AW [id number]) Hip Goniometric Range of Motion Hip Right Hip ROM WFL Yes Testing Position Supine Comments No restriction within precautions. End range flexion and IR not tested. PT-OP-M Strength Start: 10/04/21 16:21 Freq: Status: Active Protocol: Document 10/05/21 15:15 AW (Rec: 10/08/21 16:51 AW [id number]) Hip Strength Hip Manual Muscle Testing Left Flexion (L2) 4 Good Extension (S1) 3+ Fair+ Abduction 4 Good Right Flexion (L2) 4- Good- Extension (S1) 3+ Fair+ Abduction 4- Good- Knee Strength Knee Manual Muscle Testing Left Flexion (S2) 4+ Good+ Extension (L3) 4+ Good+ Comments Pain with all resisted movement on the left knee. Right Flexion (S2) 4 Good Extension (L3) 4+ Good+ Ankle/Foot Strength Ankle and Foot Manual Muscle Testing bilateral Dorsiflexion (L4) 4+ Good+ Plantarflexion (S1) 4 Good PT-OP-Q Treatments Start: 10/04/21 16:21 Freq: Status: Active Protocol: Document 01/05/22 12:28 NBM (Rec: 01/05/22 13:42 NBM [id number]) Therapeutic Exercises Sidelying Exercises Clamshell Sidelying Exercise Name Clamshell Side bilateral Equipment Used sidelying Reps/Minutes 2x10 Comments initial cues for form - HO given Sitting Exercises Step taps Sitting Exercise Name Fwd - added to HEP Equipment Used 4 step Comments vc to avoid circumduction; hip flex PF with t band Sitting Exercise Name PF/DF, EV/IN Side left Resistance #3 band Equipment Used 2x10 Comments cues for ankle only hip abd Side bilateral Resistance TB #3 (hold band at side thighs after tie) Reps/Minutes 2x10 Standing Exercises SLS Standing Exercise Name Single Leg Stance Side bilateral Comments w/ handrail heel raises Side bilateral Reps/Minutes 15 Hip abduction Standing Exercise Name Hip Abduction Side left Comments dc'd d/t very challenging, vc lat trunk lean, Gait Training Gait Activity SPC Description Gait training w/ L knee brace Device Used [facility] Level of Assistance close SBA- CGA Surface tile, carpet Distance/Duration 60 ft, 60ft Treatment Focus knee alignment, hip abd and glut fac Comments Cued alignment as needed; decreasing weightbearing on SPC. Self-Care/Home Management Treatment Education Patient Education Home Exercise Program,Joint Protection Other Education Pt brought L knee brace from home. Performed fitting beginning of treatment. That feels supportive. Added to HEP: seated step ups, sidelying clamshell - HO given PT-OP-R Modalities Start: 10/04/21 16:21 Freq: Status: Active Protocol: Document 01/01/22 13:46 NBM (Rec: 01/01/22 18:52 [facility] [id number]) Hot Pack/Cold Pack Treatment Cold Pack Location L knee Patient Position Hooklying Treatment Duration (minutes) 10 Patient Tolerance Good Comments [place] and needs within reach PT-OP-T Assessment and Plan Start: 10/04/21 16:21 Freq: Status: Active Protocol: Document 01/05/22 12:28 NBM (Rec: 01/05/22 13:42 [facility] [id number]) Physical Therapy Assessment Goals Five Impairment LEFS Food Safety Scientist Goal (LTG) Pt will score 60/80 or greater on LEFS to demonstrate improvement in daily function. LTG Duration 02/14/22 Four Impairment decreased balance Short Term Goal (STG) Pt will score 19 or higher on Tinetti. 11/23/21 - GOAL MET. STG Duration 5 weeks - 11/09/21 GOAL MET Snf Goal (LTG) Pt will score within age- matched norms on Dynamic Gait Index as a measure of reduced falls risk. LTG Duration 10 weeks - 12/14/21 Three Impairment BLE strength Short Term Goal (STG) Pt will rise from a 21 tall surface without use of hands 11/21/21: requires use of BUE to come to standing, elevated black table, not measurered. 11/23/21 - Pt can rise from 20 mat without use of hands 4 times. STG Duration 5 weeks - 11/09/21 11/23/21 - GOAL MET Snf Goal (LTG) Pt will complete 5 Time Sit to Stand from a standard height chair without use of hands in 15 seconds or less as a measure of improved BLE strength and power. LTG Duration 10 weeks - 12/14/21 Two Impairment needs assistive device, gait speed Short Term Goal (STG) Pt will walk 1100 feet on 6MWT with SPC or LRAD as a measure of improved efficiency in gait. 11/23/21 - Pt ambulates 633 feet in six min with FWW . Continue toward goal STG Duration 5 weeks - 01/13/22 Food Safety Scientist Goal (LTG) Pt will walk 1200 feet or greater on 6MWT with SPC or no AD as a measure of improved gait speed for safe community ambulation. LTG Duration 02/14/22 One Impairment lacks HEP Short Term Goal (STG) Pt will be instructed in HEP for BLE strength and ROM within hip precautions 11/21/21: progressing: side clam w/ pillow, bridge w/ TB, STS with band, LAQ, band walk, heel raises, seated hip abd TB . STG Duration 5 weeks - 11/09/21 (progressing : 11/21/21) LTG Duration 10 weeks - 12/14/21 Assessment Summary Assessment L supportive knee brace used throughout treatment. Chayo demonstrates improved activity tolerance with SPC instead of FWW throughout session. She needs cues for posture and heel-toe with ambulation. She is challenged with hip abduction and glute facilitation exercises. Pt requires cues to avoid circumduction with seated marching and will benefit from continued skilled therapy. Physical Therapy Plan Next Visit Focus/Plan Next Note Type Treatment Note Next Visit Plan Review Sit<>Stand, seated step ups, sidelying Clamshells, supine hip abd, bridging; SLS; gait training w/ SPC. Continue hip abd strengthening , recheck L knee brace and check full foot supporting sneakers (nicole mentioned tx ). POC: Progress strength and balance as able. Continue gait training with SPC.
--- NOTE | 2022-01-10 12:51 | PT-OP ANOTE ---
Pt cancelled same day, no reason given.
--- NOTE | 2022-01-16 15:20 | PT.OTN ---
Current Diagnoses Difficulty in walking, not elsewhere classified (01/16/22) Other symptoms and signs involving the musculoskeletal system (01/16/22) Presence of right artificial hip joint (01/16/22) Physical Therapy Treatment Note PT-OP-A Visit Information Start: 10/04/21 16:21 Freq: Status: Active Protocol: Document 01/16/22 14:32 SP (Rec: 01/16/22 15:32 SP [id number]) Out-Patient Physical Therapy Visit Information Visit Information Visit Type Treatment Note Visit Start Time 14:32 Visit Stop Time 15:20 Total Visit Minutes 48 Visit Number 19 Number of AMBULETTE DRIVER Visits 4 PT-OP-B Current Condition Start: 10/04/21 16:21 Freq: Status: Active Protocol: Document 10/05/21 15:15 AW (Rec: 10/05/21 13:25 AW [id number]) Current Condition History of Current Condition Onset Date July 2021 Current Complaints decreased strength and balance s/p R JOHN posterior approach History of Current Condition Chayo had R posterior hip replacement >2 months ago, went home with home health. She had a good experience with home health and is having no significant pain. She now walks with 4WW nearly 100% of the time and can walk at least 1000 feet in <10 minutes. She does best with good ankle support. She had at least three bad falls before surgery which makes her hesitant to walk without a walker. 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 Prior Treatments and Tests Previous PT for back, hip, and knee pain Treatment Goals Patient/Caregiver Goals Pt would like to walk without assistive device. Thinks she needs to unlearn gait compensations. Current Functional Impairments (Reported) Functional Limitations- Other Difficulty walking without 4WW . Uses 4WW to be able to transport objects while cooking or doing other tasks. Personal Factors Other Personal Factors That May Effect Ovarian CA, breast CA, Therapy/Recovery hypertension, BMI 39.5 PT-OP-C Subjective Start: 10/04/21 16:21 Freq: Status: Active Protocol: Document 01/16/22 14:32 SP (Rec: 01/16/22 15:32 SP [id number]) OP-PT Subjective Patient Comments Patient Comments Pt having medial knee pain. Going to see fieldwork coordinator on . ECHO late November showed heart not responsible for ankle swelling. PT-OP-D Balance Start: 10/04/21 16:21 Freq: Status: Active Protocol: Document 10/05/21 15:15 AW (Rec: 10/08/21 16:40 AW [id number]) Tinetti Balance Assessment Sitting Balance Sitting Balance Steady, safe Arising from Chair Attempts to Arise Able, requires >1 attempt Standing Balance Immediate Standing Balance Steady w/o support Standing Balance Steady, wide stance Nudged Response Staggers, catches self Standing with Eyes Closed Unsteady Turning Step Pattern Turning 360 Degrees Continuous steps Stability Turning 360 Degrees Unsteady, grabs/staggers Sitting Down Sitting Down Uses arms or unsteady Gait and Step Initiation of Gait No hesitancy Right Foot Step Length Does not pass stance ft. Right Foot Step Height Completely clears floor Left Foot Step Length Does not pass stance foot Left Foot Step Height Completely clears floor Step Description Step Symmetry Step length appears equal Step Continuity Steps appear continuous Gait Description Path Description Mild/moderate deviation Trunk Description Marked sway or uses aide Walking Stance Heels together Scoring and Interpretation Tinetti Composite Score (points) 15 Interpretation of Scores High risk for falls(< 19) Tinetti Impairment Rating from Composite 40 to <60% Impaired (Score 12- Score 16) PT-OP-E Functional Tests Start: 10/04/21 16:21 Freq: Status: Active Protocol: Document 10/05/21 15:15 AW (Rec: 10/08/21 16:40 AW [id number]) Functional Tests 2 Minute Walk Test Distance 190 feet in 101 seconds Device Used 4WW Comments average gait speed 0.57 m/s PT-OP-F Manual Assessment Start: 10/04/21 16:21 Freq: Status: Active Protocol: Document 10/05/21 15:15 AW (Rec: 10/08/21 16:41 AW [id number]) Manual Assessments Soft Tissue Assessment Soft Tissue Mobility Assessment R posterior JOHN scar with fair mobility, some evidence of adhesion. PT-OP-G Mobility & Gait Start: 10/04/21 16:21 Freq: Status: Active Protocol: Document 10/05/21 15:15 AW (Rec: 10/08/21 16:40 AW [id number]) OP Mobility Evaluation Transfers Sit to Stand Requires use of UE to stand from plinth at 23 height. OP Gait Assessment Gait Gait Assistance Required: Standby Assistance Distance (Feet) 190 Assistive Devices Assistive Device 4 Wheeled Walker Orthotic/Prosthetic Devices or Brace: No Gait Deviations General Gait Pattern Antalgic,Decreased Stride Length,Decreased Feet Clearance,Flexed Trunk,Lateral Trunk Lean Comments Gait Comments Gait notable for leftward lean and decreased right foot clearance. Bilateral knee valgus apparent with L more affected than R Stair Climbing Evaluation Evaluation Level of Assist On Stairs Standby Assistance Devices Stair Climbing Assistive Devices Left Railing,Right Railing Technique/Endurance Stair Climbing Direction Ascend and Descend Stair Climbing Technique Step to Step PT-OP-K Range of Motion Start: 10/04/21 16:21 Freq: Status: Active Protocol: Document 10/05/21 15:15 AW (Rec: 10/08/21 16:51 AW [id number]) Hip Goniometric Range of Motion Hip Right Hip ROM WFL Yes Testing Position Supine Comments No restriction within precautions. End range flexion and IR not tested. PT-OP-M Strength Start: 10/04/21 16:21 Freq: Status: Active Protocol: Document 10/05/21 15:15 AW (Rec: 10/08/21 16:51 AW [id number]) Hip Strength Hip Manual Muscle Testing Left Flexion (L2) 4 Good Extension (S1) 3+ Fair+ Abduction 4 Good Right Flexion (L2) 4- Good- Extension (S1) 3+ Fair+ Abduction 4- Good- Knee Strength Knee Manual Muscle Testing Left Flexion (S2) 4+ Good+ Extension (L3) 4+ Good+ Comments Pain with all resisted movement on the left knee. Right Flexion (S2) 4 Good Extension (L3) 4+ Good+ Ankle/Foot Strength Ankle and Foot Manual Muscle Testing bilateral Dorsiflexion (L4) 4+ Good+ Plantarflexion (S1) 4 Good PT-OP-Q Treatments Start: 10/04/21 16:21 Freq: Status: Active Protocol: Document 01/16/22 14:32 SP (Rec: 01/16/22 15:32 SP [id number]) Gym Equipment Shuttle Recovery Unilateral Squats Details occasional cue knee with toes (L knee ER/ABD align) Resistance 37# Shuttle Recovery Platform Stable Reps/Time 2x20 each LE Bilateral Squats Details min cues L>R knee hip ER alignment knees apart Resistance 62# Shuttle Recovery Platform Stable Reps/Time 2x20 Therapeutic Exercises Supine Exercises bridge Supine Exercise Name with hip abd; HEP review Resistance Tb #2 loop Equipment Used 1/2 roller under feet Reps/Minutes x8 - fatigued Comments cued maintain hip abd and tolerant lift with TA aware Sidelying Exercises Clamshell Sidelying Exercise Name Clamshell Side bilateral Equipment Used sidelying Reps/Minutes 2x10 Comments initial cues for form - HO given Sitting Exercises PF with t band Sitting Exercise Name PF/DF, EV/IN Side left Resistance #3 band Equipment Used 2x10 Comments cues for ankle only hip abd Side bilateral Resistance TB #3 (hold band at side thighs after tie) Reps/Minutes 2x10 LAQ Sitting Exercise Name LAQ w/ ankle EV neutral Side left Resistance AROM> #3 loop (provided loop) Reps/Minutes 2x5 reps Hamstring curl Sitting Exercise Name HS Curl-not performed today, reviewed for HEP Side bilateral Resistance Lv 3 Equipment Used seated fully back in chair Reps/Minutes 2x10 Standing Exercises heel raises Side bilateral Reps/Minutes 15 Comments glute squeezes w/Lheel eversion Manual Therapy Treatment Soft Tissue Mobilization L knee Body Location distal quads/HS, proximal gastroc Mobilization Type Rolling,Strumming,Sustained Pressure Intensity/Depth Moderate Body Position Supine Joint Mobilizations patellofemoral glide Direction ant/pos Grade II Body Position Supine PT-OP-R Modalities Start: 10/04/21 16:21 Freq: Status: Active Protocol: Document 01/01/22 13:46 NBM (Rec: 01/01/22 18:52 NBM [id number]) Hot Pack/Cold Pack Treatment Cold Pack Location L knee Patient Position Hooklying Treatment Duration (minutes) 10 Patient Tolerance Good Comments [place] and needs within reach PT-OP-T Assessment and Plan Start: 10/04/21 16:21 Freq: Status: Active Protocol: Document 01/16/22 14:32 SP (Rec: 01/16/22 15:32 SP [id number]) Physical Therapy Assessment Goals Five Impairment LEFS [facility] Goal (LTG) Pt will score 60/80 or greater on LEFS to demonstrate improvement in daily function. LTG Duration 02/14/22 Four Impairment decreased balance Short Term Goal (STG) Pt will score 19 or higher on Tinetti. 11/23/21 - GOAL MET. STG Duration 5 weeks - 11/09/21 GOAL MET [facility] Goal (LTG) Pt will score within age- matched norms on Dynamic Gait Index as a measure of reduced falls risk. LTG Duration 10 weeks - 12/14/21 Three Impairment BLE strength Short Term Goal (STG) Pt will rise from a 21 tall surface without use of hands 11/21/21: requires use of BUE to come to standing, elevated black table, not measurered. 11/23/21 - Pt can rise from 20 mat without use of hands 4 times. STG Duration 5 weeks - 11/09/21 11/23/21 - GOAL MET [facility] Goal (LTG) Pt will complete 5 Time Sit to Stand from a standard height chair without use of hands in 15 seconds or less as a measure of improved BLE strength and power. LTG Duration 10 weeks - 12/14/21 Two Impairment needs assistive device, gait speed Short Term Goal (STG) Pt will walk 1100 feet on 6MWT with SPC or LRAD as a measure of improved efficiency in gait. 11/23/21 - Pt ambulates 633 feet in six min with FWW . Continue toward goal STG Duration 5 weeks - 01/13/22 [facility] Goal (LTG) Pt will walk 1200 feet or greater on 6MWT with SPC or no AD as a measure of improved gait speed for safe community ambulation. LTG Duration 02/14/22 One Impairment lacks HEP Short Term Goal (STG) Pt will be instructed in HEP for BLE strength and ROM within hip precautions 11/21/21: progressing: side clam w/ pillow, bridge w/ TB, STS with band, LAQ, band walk, heel raises, seated hip abd TB . STG Duration 5 weeks - 11/09/21 (progressing : 11/21/21) LTG Duration 10 weeks - 12/14/21 Assessment Summary Assessment Tx focus on HEP review, cues required for set up ankle 3 way and LAQ w/ straight band and loop at end. Pt reported increased hip abd facilitation with cues for glut squeeze and L heel eversion awareness up on lifting. Pt demonstrates increase WB into SPC more at home and not significantly change end tx. Physical Therapy Plan Frequency and Duration Frequency of Treatment 2x/Week Duration of Treatment 3 months Plan of Care Start Date 11/23/21 Plan of Care End Date 02/14/22 Therapeutic Interventions Therapeutic Interventions Balance Training,Gait Training ,Home Exercise Program,Manual Therapy,Neuromuscular Re- education,Self-Care/Home Management,Soft Tissue Mobilization,Therapeutic Activities,Therapeutic Exercises Modalities Cold Pack/Ice Massage,Hot Packs Next Visit Focus/Plan Next Note Type Treatment Note Next Visit Plan Review Sit<>Stand, seated step ups, SLS; gait training w/ SPC. Continue hip abd strengthening , recheck L knee brace and check full foot supporting sneakers (nicole mentioned tx ). POC: Progress strength and balance as able. Continue gait training with SPC.
--- NOTE | 2022-01-16 15:49 | PT.OTN ---
Current Diagnoses Difficulty in walking, not elsewhere classified (01/16/22) Other symptoms and signs involving the musculoskeletal system (01/16/22) Presence of right artificial hip joint (01/16/22) Physical Therapy Treatment Note PT-OP-A Visit Information Start: 10/04/21 16:21 Freq: Status: Active Protocol: Document 01/16/22 15:43 SP (Rec: 01/16/22 15:45 SP [id number]) Out-Patient Physical Therapy Visit Information Visit Information Visit Type Treatment Note Visit Start Time 14:32 Visit Stop Time 15:20 Total Visit Minutes 48 Visit Number 19 Number of MACHINE STUFFER AUTOMATIC Visits 4 Precautions Precautions posterior R JOHN 07/28/21 PT-OP-B Current Condition Start: 10/04/21 16:21 Freq: Status: Active Protocol: Document 10/05/21 15:15 AW (Rec: 10/05/21 13:25 AW [id number]) Current Condition History of Current Condition Onset Date July 2021 Current Complaints decreased strength and balance s/p R JOHN posterior approach History of Current Condition Chayo had R posterior hip replacement >2 months ago, went home with home health. She had a good experience with home health and is having no significant pain. She now walks with 4WW nearly 100% of the time and can walk at least 1000 feet in <10 minutes. She does best with good ankle support. She had at least three bad falls before surgery which makes her hesitant to walk without a walker. 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 Prior Treatments and Tests Previous PT for back, hip, and knee pain Treatment Goals Patient/Caregiver Goals Pt would like to walk without assistive device. Thinks she needs to unlearn gait compensations. Current Functional Impairments (Reported) Functional Limitations- Other Difficulty walking without 4WW . Uses 4WW to be able to transport objects while cooking or doing other tasks. Personal Factors Other Personal Factors That May Effect Ovarian CA, breast CA, Therapy/Recovery hypertension, BMI 39.5 PT-OP-C Subjective Start: 10/04/21 16:21 Freq: Status: Active Protocol: Document 01/16/22 15:43 SP (Rec: 01/16/22 15:45 SP [id number]) OP-PT Subjective Patient Comments Patient Comments Pt having medial knee pain. Going to see computer systems hardware analyst on . ECHO late November showed heart not responsible for ankle swelling. PT-OP-D Balance Start: 10/04/21 16:21 Freq: Status: Active Protocol: Document 10/05/21 15:15 AW (Rec: 10/08/21 16:40 AW [id number]) Tinetti Balance Assessment Sitting Balance Sitting Balance Steady, safe Arising from Chair Attempts to Arise Able, requires >1 attempt Standing Balance Immediate Standing Balance Steady w/o support Standing Balance Steady, wide stance Nudged Response Staggers, catches self Standing with Eyes Closed Unsteady Turning Step Pattern Turning 360 Degrees Continuous steps Stability Turning 360 Degrees Unsteady, grabs/staggers Sitting Down Sitting Down Uses arms or unsteady Gait and Step Initiation of Gait No hesitancy Right Foot Step Length Does not pass stance ft. Right Foot Step Height Completely clears floor Left Foot Step Length Does not pass stance foot Left Foot Step Height Completely clears floor Step Description Step Symmetry Step length appears equal Step Continuity Steps appear continuous Gait Description Path Description Mild/moderate deviation Trunk Description Marked sway or uses aide Walking Stance Heels together Scoring and Interpretation Tinetti Composite Score (points) 15 Interpretation of Scores High risk for falls(< 19) Tinetti Impairment Rating from Composite 40 to <60% Impaired (Score 12- Score 16) PT-OP-E Functional Tests Start: 10/04/21 16:21 Freq: Status: Active Protocol: Document 10/05/21 15:15 AW (Rec: 10/08/21 16:40 AW [id number]) Functional Tests 2 Minute Walk Test Distance 190 feet in 101 seconds Device Used 4WW Comments average gait speed 0.57 m/s PT-OP-F Manual Assessment Start: 10/04/21 16:21 Freq: Status: Active Protocol: Document 10/05/21 15:15 AW (Rec: 10/08/21 16:41 AW [id number]) Manual Assessments Soft Tissue Assessment Soft Tissue Mobility Assessment R posterior JOHN scar with fair mobility, some evidence of adhesion. PT-OP-G Mobility & Gait Start: 10/04/21 16:21 Freq: Status: Active Protocol: Document 10/05/21 15:15 AW (Rec: 10/08/21 16:40 AW [id number]) OP Mobility Evaluation Transfers Sit to Stand Requires use of UE to stand from plinth at 23 height. OP Gait Assessment Gait Gait Assistance Required: Standby Assistance Distance (Feet) 190 Assistive Devices Assistive Device 4 Wheeled Walker Orthotic/Prosthetic Devices or Brace: No Gait Deviations General Gait Pattern Antalgic,Decreased Stride Length,Decreased Feet Clearance,Flexed Trunk,Lateral Trunk Lean Comments Gait Comments Gait notable for leftward lean and decreased right foot clearance. Bilateral knee valgus apparent with L more affected than R Stair Climbing Evaluation Evaluation Level of Assist On Stairs Standby Assistance Devices Stair Climbing Assistive Devices Left Railing,Right Railing Technique/Endurance Stair Climbing Direction Ascend and Descend Stair Climbing Technique Step to Step PT-OP-K Range of Motion Start: 10/04/21 16:21 Freq: Status: Active Protocol: Document 10/05/21 15:15 AW (Rec: 10/08/21 16:51 AW [id number]) Hip Goniometric Range of Motion Hip Right Hip ROM WFL Yes Testing Position Supine Comments No restriction within precautions. End range flexion and IR not tested. PT-OP-M Strength Start: 10/04/21 16:21 Freq: Status: Active Protocol: Document 10/05/21 15:15 AW (Rec: 10/08/21 16:51 AW [id number]) Hip Strength Hip Manual Muscle Testing Left Flexion (L2) 4 Good Extension (S1) 3+ Fair+ Abduction 4 Good Right Flexion (L2) 4- Good- Extension (S1) 3+ Fair+ Abduction 4- Good- Knee Strength Knee Manual Muscle Testing Left Flexion (S2) 4+ Good+ Extension (L3) 4+ Good+ Comments Pain with all resisted movement on the left knee. Right Flexion (S2) 4 Good Extension (L3) 4+ Good+ Ankle/Foot Strength Ankle and Foot Manual Muscle Testing bilateral Dorsiflexion (L4) 4+ Good+ Plantarflexion (S1) 4 Good PT-OP-Q Treatments Start: 10/04/21 16:21 Freq: Status: Active Protocol: Document 01/16/22 15:43 SP (Rec: 01/16/22 15:45 SP [id number]) Therapeutic Exercises Supine Exercises HS stretch Supine Exercise Name PROM Side left Reps/Minutes 2x30 Comments use of strap PT-OP-R Modalities Start: 10/04/21 16:21 Freq: Status: Active Protocol: Document 01/01/22 13:46 NBM (Rec: 01/01/22 18:52 NB [id number]) Hot Pack/Cold Pack Treatment Cold Pack Location L knee Patient Position Hooklying Treatment Duration (minutes) 10 Patient Tolerance Good Comments [place] and needs within reach PT-OP-T Assessment and Plan Start: 10/04/21 16:21 Freq: Status: Active Protocol: Document 01/16/22 15:43 SP (Rec: 01/16/22 15:45 SP [id number]) Physical Therapy Assessment Goals Five Impairment LEFS Cnc Laser Operator Goal (LTG) Pt will score 60/80 or greater on LEFS to demonstrate improvement in daily function. LTG Duration 02/14/22 Four Impairment decreased balance Short Term Goal (STG) Pt will score 19 or higher on Tinetti. 11/23/21 - GOAL MET. STG Duration 5 weeks - 11/09/21 GOAL MET Cnc Laser Operator Goal (LTG) Pt will score within age- matched norms on Dynamic Gait Index as a measure of reduced falls risk. LTG Duration 10 weeks - 12/14/21 Three Impairment BLE strength Short Term Goal (STG) Pt will rise from a 21 tall surface without use of hands 11/21/21: requires use of BUE to come to standing, elevated black table, not measurered. 11/23/21 - Pt can rise from 20 mat without use of hands 4 times. STG Duration 5 weeks - 11/09/21 11/23/21 - GOAL MET Cnc Laser Operator Goal (LTG) Pt will complete 5 Time Sit to Stand from a standard height chair without use of hands in 15 seconds or less as a measure of improved BLE strength and power. LTG Duration 10 weeks - 12/14/21 Two Impairment needs assistive device, gait speed Short Term Goal (STG) Pt will walk 1100 feet on 6MWT with SPC or LRAD as a measure of improved efficiency in gait. 11/23/21 - Pt ambulates 633 feet in six min with FWW . Continue toward goal STG Duration 5 weeks - 01/13/22 [facility] Goal (LTG) Pt will walk 1200 feet or greater on 6MWT with SPC or no AD as a measure of improved gait speed for safe community ambulation. LTG Duration 02/14/22 One Impairment lacks HEP Short Term Goal (STG) Pt will be instructed in HEP for BLE strength and ROM within hip precautions 11/21/21: progressing: side clam w/ pillow, bridge w/ TB, STS with band, LAQ, band walk, heel raises, seated hip abd TB . STG Duration 5 weeks - 11/09/21 (progressing : 11/21/21) LTG Duration 10 weeks - 12/14/21 Assessment Summary Assessment Pt sasha Physical Therapy Plan Frequency and Duration Frequency of Treatment 2x/Week Duration of Treatment 3 months Plan of Care Start Date 11/23/21 Plan of Care End Date 02/14/22 Therapeutic Interventions Therapeutic Interventions Balance Training,Gait Training ,Home Exercise Program,Manual Therapy,Neuromuscular Re- education,Self-Care/Home Management,Soft Tissue Mobilization,Therapeutic Activities,Therapeutic Exercises Modalities Cold Pack/Ice Massage,Hot Packs Next Visit Focus/Plan Next Note Type Treatment Note Next Visit Plan Review Sit<>Stand, seated step ups, SLS; gait training w/ SPC. Continue hip abd strengthening , recheck L knee brace and check full foot supporting sneakers (nicole mentioned tx ). POC: Progress strength and balance as able. Continue gait training with SPC.
--- NOTE | 2022-01-18 13:17 | PT-OP ANOTE ---
No show- pt thought her appointment was at 2:30 not at 1. Apologized. Confirmed next appt.
--- NOTE | 2022-02-06 11:15 | PT.OTN ---
Current Diagnoses Difficulty in walking, not elsewhere classified (02/06/22) Other symptoms and signs involving the musculoskeletal system (02/06/22) Presence of right artificial hip joint (02/06/22) Physical Therapy Treatment Note PT-OP-A Visit Information Start: 10/04/21 16:21 Freq: Status: Active Protocol: Document 02/06/22 10:34 SP (Rec: 02/06/22 11:34 SP [id number]) Out-Patient Physical Therapy Visit Information Visit Information Visit Type Treatment Note Visit Start Time 10:34 Visit Stop Time 11:15 Total Visit Minutes 41 Visit Number 20 Number of COACH CLEANER Visits 6 Precautions Precautions posterior R JOHN 07/28/21 PT-OP-B Current Condition Start: 10/04/21 16:21 Freq: Status: Active Protocol: Document 10/05/21 15:15 AW (Rec: 10/05/21 13:25 AW [id number]) Current Condition History of Current Condition Onset Date July 2021 Current Complaints decreased strength and balance s/p R JOHN posterior approach History of Current Condition Chayo had R posterior hip replacement >2 months ago, went home with home health. She had a good experience with home health and is having no significant pain. She now walks with 4WW nearly 100% of the time and can walk at least 1000 feet in <10 minutes. She does best with good ankle support. She had at least three bad falls before surgery which makes her hesitant to walk without a walker. 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 Prior Treatments and Tests Previous PT for back, hip, and knee pain Treatment Goals Patient/Caregiver Goals Pt would like to walk without assistive device. Thinks she needs to unlearn gait compensations. Current Functional Impairments (Reported) Functional Limitations- Other Difficulty walking without 4WW . Uses 4WW to be able to transport objects while cooking or doing other tasks. Personal Factors Other Personal Factors That May Effect Ovarian CA, breast CA, Therapy/Recovery hypertension, BMI 39.5 PT-OP-C Subjective Start: 10/04/21 16:21 Freq: Status: Active Protocol: Document 02/06/22 10:34 SP (Rec: 02/06/22 11:34 SP [id number]) OP-PT Subjective Patient Comments Patient Comments Pt reports using SPC lately when out of town (left 4WW at home) and feels knee getting stronger. Did notice L knee viering more lateral now when walking with 4WW. Did see global chief creative officer Dr Betts and getting B orthotics and script for L ankle brace in [place]. Will be going soon. PT-OP-D Balance Start: 10/04/21 16:21 Freq: Status: Active Protocol: Document 10/05/21 15:15 AW (Rec: 10/08/21 16:40 AW [id number]) Tinetti Balance Assessment Sitting Balance Sitting Balance Steady, safe Arising from Chair Attempts to Arise Able, requires >1 attempt Standing Balance Immediate Standing Balance Steady w/o support Standing Balance Steady, wide stance Nudged Response Staggers, catches self Standing with Eyes Closed Unsteady Turning Step Pattern Turning 360 Degrees Continuous steps Stability Turning 360 Degrees Unsteady, grabs/staggers Sitting Down Sitting Down Uses arms or unsteady Gait and Step Initiation of Gait No hesitancy Right Foot Step Length Does not pass stance ft. Right Foot Step Height Completely clears floor Left Foot Step Length Does not pass stance foot Left Foot Step Height Completely clears floor Step Description Step Symmetry Step length appears equal Step Continuity Steps appear continuous Gait Description Path Description Mild/moderate deviation Trunk Description Marked sway or uses aide Walking Stance Heels together Scoring and Interpretation Tinetti Composite Score (points) 15 Interpretation of Scores High risk for falls(< 19) Tinetti Impairment Rating from Composite 40 to <60% Impaired (Score 12- Score 16) PT-OP-E Functional Tests Start: 10/04/21 16:21 Freq: Status: Active Protocol: Document 10/05/21 15:15 AW (Rec: 10/08/21 16:40 AW [id number]) Functional Tests 2 Minute Walk Test Distance 190 feet in 101 seconds Device Used 4WW Comments average gait speed 0.57 m/s PT-OP-F Manual Assessment Start: 10/04/21 16:21 Freq: Status: Active Protocol: Document 10/05/21 15:15 AW (Rec: 10/08/21 16:41 AW [id number]) Manual Assessments Soft Tissue Assessment Soft Tissue Mobility Assessment R posterior JOHN scar with fair mobility, some evidence of adhesion. PT-OP-G Mobility & Gait Start: 10/04/21 16:21 Freq: Status: Active Protocol: Document 10/05/21 15:15 AW (Rec: 10/08/21 16:40 AW [id number]) OP Mobility Evaluation Transfers Sit to Stand Requires use of UE to stand from plinth at 23 height. OP Gait Assessment Gait Gait Assistance Required: Standby Assistance Distance (Feet) 190 Assistive Devices Assistive Device 4 Wheeled Walker Orthotic/Prosthetic Devices or Brace: No Gait Deviations General Gait Pattern Antalgic,Decreased Stride Length,Decreased Feet Clearance,Flexed Trunk,Lateral Trunk Lean Comments Gait Comments Gait notable for leftward lean and decreased right foot clearance. Bilateral knee valgus apparent with L more affected than R Stair Climbing Evaluation Evaluation Level of Assist On Stairs Standby Assistance Devices Stair Climbing Assistive Devices Left Railing,Right Railing Technique/Endurance Stair Climbing Direction Ascend and Descend Stair Climbing Technique Step to Step PT-OP-K Range of Motion Start: 10/04/21 16:21 Freq: Status: Active Protocol: Document 10/05/21 15:15 AW (Rec: 10/08/21 16:51 AW [id number]) Hip Goniometric Range of Motion Hip Right Hip ROM WFL Yes Testing Position Supine Comments No restriction within precautions. End range flexion and IR not tested. PT-OP-M Strength Start: 10/04/21 16:21 Freq: Status: Active Protocol: Document 10/05/21 15:15 AW (Rec: 10/08/21 16:51 AW [id number]) Hip Strength Hip Manual Muscle Testing Left Flexion (L2) 4 Good Extension (S1) 3+ Fair+ Abduction 4 Good Right Flexion (L2) 4- Good- Extension (S1) 3+ Fair+ Abduction 4- Good- Knee Strength Knee Manual Muscle Testing Left Flexion (S2) 4+ Good+ Extension (L3) 4+ Good+ Comments Pain with all resisted movement on the left knee. Right Flexion (S2) 4 Good Extension (L3) 4+ Good+ Ankle/Foot Strength Ankle and Foot Manual Muscle Testing bilateral Dorsiflexion (L4) 4+ Good+ Plantarflexion (S1) 4 Good PT-OP-Q Treatments Start: 10/04/21 16:21 Freq: Status: Active Protocol: Document 02/06/22 10:34 SP (Rec: 02/06/22 11:34 SP [id number]) Gym Equipment Shuttle Recovery Unilateral Squats Details tactile/ VC knee with toes (L knee ER/ABD align) Resistance 37# Shuttle Recovery Platform Stable Reps/Time 2x20 each LE Bilateral Squats Details RTB around knees, = BLE effort , better focus more L for = Resistance 62# Shuttle Recovery Platform Stable Reps/Time 2x20 Therapeutic Exercises Supine Exercises bridge Supine Exercise Name with hip abd; HEP review Resistance Tb #2 loop Equipment Used 1/2 roller under feet Reps/Minutes x10 3s hold Comments good hip abd self corrections Sidelying Exercises Clamshell Sidelying Exercise Name Clamshell Side bilateral Equipment Used hand on hip for stacked alignment self support Reps/Minutes 2x20 Comments good form tiring response Sitting Exercises LAQ Sitting Exercise Name LAQ w/ ankle EV neutral Side left Resistance AROM> #3 loop Reps/Minutes 2x5 reps Comments good form Standing Exercises step up/down Standing Exercise Name fwd, side step ups Side bilateral Equipment Used 4 step, rail 1UE support/SPC in other UE Reps/Minutes x5 each all time for Comments no pain reported, cued knee alignment with toes, hip abd fac/pelvis under heel raises Side bilateral Equipment Used rail support Mod Reps/Minutes 15 Comments glute squeezes w/L heel eversion and space btwn knees Hip abduction Standing Exercise Name Hip Abduction Side left Equipment Used rail mod- heavy UE support Reps/Minutes 8 reps R kick, 5 reps L kick Comments challenged RLE abd L knee cave , RLE hip abd weak but correct pelvic tuck Gait Training Gait Activity SPC Description Gait training w/ SPC Device Used SPC Level of Assistance SBA- S Surface tile, carpet Distance/Duration 120 ft Treatment Focus knee alignment, hip abd and glut fac Comments Cued L>R alignment laterally; decreasing UE weightbearing on SPC. PT-OP-R Modalities Start: 10/04/21 16:21 Freq: Status: Active Protocol: Document 01/01/22 13:46 NBM (Rec: 01/01/22 18:52 NB [id number]) Hot Pack/Cold Pack Treatment Cold Pack Location L knee Patient Position Hooklying Treatment Duration (minutes) 10 Patient Tolerance Good Comments [place] and needs within reach PT-OP-T Assessment and Plan Start: 10/04/21 16:21 Freq: Status: Active Protocol: Document 02/06/22 10:34 SP (Rec: 02/06/22 11:34 SP [id number]) Physical Therapy Assessment Goals Five Impairment LEFS Manager Primary Goal (LTG) Pt will score 60/80 or greater on LEFS to demonstrate improvement in daily function. LTG Duration 02/14/22 Four Impairment decreased balance Short Term Goal (STG) Pt will score 19 or higher on Tinetti. 11/23/21 - GOAL MET. STG Duration 5 weeks - 11/09/21 GOAL MET Mcc Goal (LTG) Pt will score within age- matched norms on Dynamic Gait Index as a measure of reduced falls risk. LTG Duration 10 weeks - 12/14/21 Three Impairment BLE strength Short Term Goal (STG) Pt will rise from a 21 tall surface without use of hands 11/21/21: requires use of BUE to come to standing, elevated black table, not measurered. 11/23/21 - Pt can rise from 20 mat without use of hands 4 times. STG Duration 5 weeks - 11/09/21 11/23/21 - GOAL MET Manager Primary Goal (LTG) Pt will complete 5 Time Sit to Stand from a standard height chair without use of hands in 15 seconds or less as a measure of improved BLE strength and power. LTG Duration 10 weeks - 12/14/21 Two Impairment needs assistive device, gait speed Short Term Goal (STG) Pt will walk 1100 feet on 6MWT with SPC or LRAD as a measure of improved efficiency in gait. 11/23/21 - Pt ambulates 633 feet in six min with FWW . Continue toward goal STG Duration 5 weeks - 01/13/22 Mcc Goal (LTG) Pt will walk 1200 feet or greater on 6MWT with SPC or no AD as a measure of improved gait speed for safe community ambulation. LTG Duration 02/14/22 One Impairment lacks HEP Short Term Goal (STG) Pt will be instructed in HEP for BLE strength and ROM within hip precautions 11/21/21: progressing: side clam w/ pillow, bridge w/ TB, STS with band, LAQ, band walk, heel raises, seated hip abd TB . STG Duration 5 weeks - 11/09/21 (progressing : 11/21/21) LTG Duration 10 weeks - 12/14/21 Assessment Summary Assessment Pt good effort with focus on hip abd facilitation with tactile cues as needed L lateral knee. She is noticing more lateral shift L knee with 4WW and trying to focus usign SPC as well. Physical Therapy Plan Frequency and Duration Frequency of Treatment 2x/Week Duration of Treatment 3 months Plan of Care Start Date 11/23/21 Plan of Care End Date 02/14/22 Therapeutic Interventions Therapeutic Interventions Balance Training,Gait Training ,Home Exercise Program,Manual Therapy,Neuromuscular Re- education,Self-Care/Home Management,Soft Tissue Mobilization,Therapeutic Activities,Therapeutic Exercises Modalities Cold Pack/Ice Massage,Hot Packs Other Referrals/Consults Referrals/Consults Recommended 02/06/22: Recheck if received orthotics/L ankle brace from global chief creative officer. Next Visit Focus/Plan Next Note Type Progress Note Next Visit Plan Pt requires PN and update POC next tx, expires 02/14/22. Update testing/ goals. POC: Review Sit<>Stand, seated step ups, SLS; gait training w/ SPC. Continue hip abd strengthening , recheck L knee brace and check full foot supporting sneakers (nicole mentioned tx ). POC: Progress strength and balance as able. Continue gait training with SPC.
--- NOTE | 2022-02-16 22:33 | PT.OTN ---
Current Diagnoses Difficulty in walking, not elsewhere classified (02/16/22) Other symptoms and signs involving the musculoskeletal system (02/16/22) Presence of right artificial hip joint (02/16/22) Physical Therapy Treatment Note PT-OP-A Visit Information Start: 10/04/21 16:21 Freq: Status: Active Protocol: Document 02/16/22 13:03 AMB (Rec: 02/16/22 13:45 AMB [id number]) Out-Patient Physical Therapy Visit Information Visit Information Visit Type Progress Note Visit Start Time 13:00 Visit Stop Time 13:30 Total Visit Minutes 41 Visit Number 21 Number of ACUTE CARE REGISTERED NURSE Visits 0 PT-OP-B Current Condition Start: 10/04/21 16:21 Freq: Status: Active Protocol: Document 10/05/21 15:15 AW (Rec: 10/05/21 13:25 AW [id number]) Current Condition History of Current Condition Onset Date July 2021 Current Complaints decreased strength and balance s/p R JOHN posterior approach History of Current Condition Chayo had R posterior hip replacement >2 months ago, went home with home health. She had a good experience with home health and is having no significant pain. She now walks with 4WW nearly 100% of the time and can walk at least 1000 feet in <10 minutes. She does best with good ankle support. She had at least three bad falls before surgery which makes her hesitant to walk without a walker. 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 Prior Treatments and Tests Previous PT for back, hip, and knee pain Treatment Goals Patient/Caregiver Goals Pt would like to walk without assistive device. Thinks she needs to unlearn gait compensations. Current Functional Impairments (Reported) Functional Limitations- Other Difficulty walking without 4WW . Uses 4WW to be able to transport objects while cooking or doing other tasks. Personal Factors Other Personal Factors That May Effect Ovarian CA, breast CA, Therapy/Recovery hypertension, BMI 39.5 PT-OP-C Subjective Start: 10/04/21 16:21 Freq: Status: Active Protocol: Document 02/19/22 22:10 AMB (Rec: 02/19/22 22:32 AMB [id number]) OP-PT Subjective Patient Comments Patient Comments Chayo is hoping to continue PT for a little while after she gets her custom orthotics as she is hoping that will signficiantly improve her gait . PT-OP-D Balance Start: 10/04/21 16:21 Freq: Status: Active Protocol: Document 10/05/21 15:15 AW (Rec: 10/08/21 16:40 AW [id number]) Tinetti Balance Assessment Sitting Balance Sitting Balance Steady, safe Arising from Chair Attempts to Arise Able, requires >1 attempt Standing Balance Immediate Standing Balance Steady w/o support Standing Balance Steady, wide stance Nudged Response Staggers, catches self Standing with Eyes Closed Unsteady Turning Step Pattern Turning 360 Degrees Continuous steps Stability Turning 360 Degrees Unsteady, grabs/staggers Sitting Down Sitting Down Uses arms or unsteady Gait and Step Initiation of Gait No hesitancy Right Foot Step Length Does not pass stance ft. Right Foot Step Height Completely clears floor Left Foot Step Length Does not pass stance foot Left Foot Step Height Completely clears floor Step Description Step Symmetry Step length appears equal Step Continuity Steps appear continuous Gait Description Path Description Mild/moderate deviation Trunk Description Marked sway or uses aide Walking Stance Heels together Scoring and Interpretation Tinetti Composite Score (points) 15 Interpretation of Scores High risk for falls(< 19) Tinetti Impairment Rating from Composite 40 to <60% Impaired (Score 12- Score 16) PT-OP-E Functional Tests Start: 10/04/21 16:21 Freq: Status: Active Protocol: Document 10/05/21 15:15 AW (Rec: 10/08/21 16:40 AW [id number]) Functional Tests 2 Minute Walk Test Distance 190 feet in 101 seconds Device Used 4WW Comments average gait speed 0.57 m/s PT-OP-F Manual Assessment Start: 10/04/21 16:21 Freq: Status: Active Protocol: Document 10/05/21 15:15 AW (Rec: 10/08/21 16:41 AW [id number]) Manual Assessments Soft Tissue Assessment Soft Tissue Mobility Assessment R posterior JOHN scar with fair mobility, some evidence of adhesion. PT-OP-G Mobility & Gait Start: 10/04/21 16:21 Freq: Status: Active Protocol: Document 10/05/21 15:15 AW (Rec: 10/08/21 16:40 AW [id number]) OP Mobility Evaluation Transfers Sit to Stand Requires use of UE to stand from plinth at 23 height. OP Gait Assessment Gait Gait Assistance Required: Standby Assistance Distance (Feet) 190 Assistive Devices Assistive Device 4 Wheeled Walker Orthotic/Prosthetic Devices or Brace: No Gait Deviations General Gait Pattern Antalgic,Decreased Stride Length,Decreased Feet Clearance,Flexed Trunk,Lateral Trunk Lean Comments Gait Comments Gait notable for leftward lean and decreased right foot clearance. Bilateral knee valgus apparent with L more affected than R Stair Climbing Evaluation Evaluation Level of Assist On Stairs Standby Assistance Devices Stair Climbing Assistive Devices Left Railing,Right Railing Technique/Endurance Stair Climbing Direction Ascend and Descend Stair Climbing Technique Step to Step PT-OP-K Range of Motion Start: 10/04/21 16:21 Freq: Status: Active Protocol: Document 10/05/21 15:15 AW (Rec: 10/08/21 16:51 AW [id number]) Hip Goniometric Range of Motion Hip Right Hip ROM WFL Yes Testing Position Supine Comments No restriction within precautions. End range flexion and IR not tested. PT-OP-M Strength Start: 10/04/21 16:21 Freq: Status: Active Protocol: Document 10/05/21 15:15 AW (Rec: 10/08/21 16:51 AW [id number]) Hip Strength Hip Manual Muscle Testing Left Flexion (L2) 4 Good Extension (S1) 3+ Fair+ Abduction 4 Good Right Flexion (L2) 4- Good- Extension (S1) 3+ Fair+ Abduction 4- Good- Knee Strength Knee Manual Muscle Testing Left Flexion (S2) 4+ Good+ Extension (L3) 4+ Good+ Comments Pain with all resisted movement on the left knee. Right Flexion (S2) 4 Good Extension (L3) 4+ Good+ Ankle/Foot Strength Ankle and Foot Manual Muscle Testing bilateral Dorsiflexion (L4) 4+ Good+ Plantarflexion (S1) 4 Good PT-OP-Q Treatments Start: 10/04/21 16:21 Freq: Status: Active Protocol: Document 02/19/22 22:10 AMB (Rec: 02/19/22 22:32 AMB [id number]) Therapeutic Exercises Other Exercises sit to stand Other Exercise Name sit to stand Equipment Used mat table Reps/Minutes x10 Comments cued front chair, hip hinge Gait Training Gait Activity Stairs Description step to patterning, hip ER and quad eccentric flexion Distance/Duration 4 stairs x2 sets Treatment Focus knee/ ankle alignment, strength concentric/ eccentric , SPC Description 6MWT Device Used SPC Level of Assistance SBA- S Surface tile, carpet Treatment Focus knee alignment, hip abd and glut fac Comments Cued L>R alignment laterally; decreasing UE weightbearing on SPC. Neuro Re-Education Treatment Balance Activities DGI Comments 06/09 not really off balance per se, but more gait deviations due to weakness reduced score. Pt has been doing stairs with a step to gait pattern for at least 4 years. PT-OP-R Modalities Start: 10/04/21 16:21 Freq: Status: Active Protocol: Document 01/01/22 13:46 NBM (Rec: 01/01/22 18:52 NBM [id number]) Hot Pack/Cold Pack Treatment Cold Pack Location L knee Patient Position Hooklying Treatment Duration (minutes) 10 Patient Tolerance Good Comments [place] and needs within reach PT-OP-T Assessment and Plan Start: 10/04/21 16:21 Freq: Status: Active Protocol: Document 02/16/22 13:03 AMB (Rec: 02/16/22 13:45 AMB [id number]) Physical Therapy Assessment Goals Five Impairment LEFS Fpc Goal (LTG) Pt will score 60/80 or greater on LEFS to demonstrate improvement in daily function. LTG Duration 04/16/22 Four Impairment decreased balance Short Term Goal (STG) Pt will score 19 or higher on Tinetti. 11/23/21 - GOAL MET. STG Duration 5 weeks - 11/09/21 GOAL MET Equipment Analyst Goal (LTG) Pt will score within age- matched norms on Dynamic Gait Index as a measure of reduced falls risk. 02/16: 06/09 LTG Duration 04/16/22 Three Impairment BLE strength Short Term Goal (STG) Pt will rise from a 21 tall surface without use of hands 11/21/21: requires use of BUE to come to standing, elevated black table, not measurered. 11/23/21 - Pt can rise from 20 mat without use of hands 4 times. STG Duration GOAL MET Fpc Goal (LTG) Pt will complete 5 Time Sit to Stand from a standard height chair without use of hands in 15 seconds or less as a measure of improved BLE strength and power. LTG Duration 10 weeks - 02/16: partiall met 19 seconds Two Impairment needs assistive device, gait speed Short Term Goal (STG) Pt will walk 1100 feet on 6MWT with SPC or LRAD as a measure of improved efficiency in gait. 11/23/21 - Pt ambulates 633 feet in six min with FWW 02/16: 410 with one seated rest break due to left knee pain STG Duration 03/16/22 Fpc Goal (LTG) Pt will walk 1200 feet or greater on 6MWT with SPC or no AD as a measure of improved gait speed for safe community ambulation. LTG Duration 04/16/22 One Impairment lacks HEP Short Term Goal (STG) Pt will be instructed in HEP for BLE strength and ROM within hip precautions 11/21/21: progressing: side clam w/ pillow, bridge w/ TB, STS with band, LAQ, band walk, heel raises, seated hip abd TB . STG Duration 5 weeks - 11/09/21 (progressing : 11/21/21) Assessment Summary Assessment L knee pain with 10 sit to stands. Continues to have heavy trunk lean and knee valgus, getting custom orthotics and ankle bracing that patient is hopeful will assist with her gait. She is making good gains in PT, but gait is coming slower than other goals. Hip strengthening remains necessary for gait gains as well. Physical Therapy Plan Frequency and Duration Frequency of Treatment 2x/Week Duration of Treatment 2 months Plan of Care Start Date 02/16/22 Plan of Care End Date 04/18/22 Therapeutic Interventions Therapeutic Interventions Balance Training,Gait Training ,Home Exercise Program,Manual Therapy,Neuromuscular Re- education,Self-Care/Home Management,Soft Tissue Mobilization,Therapeutic Activities,Therapeutic Exercises Modalities Cold Pack/Ice Massage,Hot Packs Next Visit Focus/Plan Next Note Type Progress Note Next Visit Plan SLS; gait training w/ SPC. Continue hip abd strengthening , POC: Progress strength and balance as able. Continue gait training with SPC.
--- NOTE | 2022-02-16 22:33 | PT.OPPOC ---
Physical, Occupational & Speech Therapy At [facility] Current Diagnoses Difficulty in walking, not elsewhere classified (02/16/22) Other symptoms and signs involving the musculoskeletal system (02/16/22) Presence of right artificial hip joint (02/16/22) Visit Care Team Role Provider Type ENEIDA Bradley Attending Provider Advanced Insurance Professional Family Provider Primary Care Provider Referring Provider Specialty: [facility] Practice Address: [address] [place] [address], [facility] Email: [email or web address] Plan Of Care PT-OP-T Assessment and Plan Start: 10/04/21 16:21 Freq: Status: Active Protocol: Document 02/16/22 13:03 AMB (Rec: 02/16/22 13:45 AMB [id number]) Physical Therapy Assessment Goals Five Impairment LEFS Pediatric Oncology Nurse Goal (LTG) Pt will score 60/80 or greater on LEFS to demonstrate improvement in daily function. LTG Duration 04/16/22 Four Impairment decreased balance Short Term Goal (STG) Pt will score 19 or higher on Tinetti. 11/23/21 - GOAL MET. STG Duration 5 weeks - 11/09/21 GOAL MET [facility] Goal (LTG) Pt will score within age- matched norms on Dynamic Gait Index as a measure of reduced falls risk. 02/16: 06/09 LTG Duration 04/16/22 Three Impairment BLE strength Short Term Goal (STG) Pt will rise from a 21 tall surface without use of hands 11/21/21: requires use of BUE to come to standing, elevated black table, not measurered. 11/23/21 - Pt can rise from 20 mat without use of hands 4 times. STG Duration GOAL MET Pediatric Oncology Nurse Goal (LTG) Pt will complete 5 Time Sit to Stand from a standard height chair without use of hands in 15 seconds or less as a measure of improved BLE strength and power. LTG Duration 10 weeks - 02/16: partiall met 19 seconds Two Impairment needs assistive device, gait speed Short Term Goal (STG) Pt will walk 1100 feet on 6MWT with SPC or LRAD as a measure of improved efficiency in gait. 11/23/21 - Pt ambulates 633 feet in six min with FWW 02/16: 410 with one seated rest break due to left knee pain STG Duration 03/16/22 [facility] Goal (LTG) Pt will walk 1200 feet or greater on 6MWT with SPC or no AD as a measure of improved gait speed for safe community ambulation. LTG Duration 04/16/22 One Impairment lacks HEP Short Term Goal (STG) Pt will be instructed in HEP for BLE strength and ROM within hip precautions 11/21/21: progressing: side clam w/ pillow, bridge w/ TB, STS with band, LAQ, band walk, heel raises, seated hip abd TB . STG Duration 5 weeks - 11/09/21 (progressing : 11/21/21) Assessment Summary Assessment L knee pain with 10 sit to stands. Continues to have heavy trunk lean and knee valgus, getting custom orthotics and ankle bracing that patient is hopeful will assist with her gait. She is making good gains in PT, but gait is coming slower than other goals. Hip strengthening remains necessary for gait gains as well. Physical Therapy Plan Frequency and Duration Frequency of Treatment 2x/Week Duration of Treatment 2 months Plan of Care Start Date 02/16/22 Plan of Care End Date 04/18/22 Therapeutic Interventions Therapeutic Interventions Balance Training,Gait Training ,Home Exercise Program,Manual Therapy,Neuromuscular Re- education,Self-Care/Home Management,Soft Tissue Mobilization,Therapeutic Activities,Therapeutic Exercises Modalities Cold Pack/Ice Massage,Hot Packs Next Visit Focus/Plan Next Note Type Progress Note Next Visit Plan SLS; gait training w/ SPC. Continue hip abd strengthening , POC: Progress strength and balance as able. Continue gait training with SPC. Plan of Care Dates Plan of Care Start Date 02/16/22 Plan of Care End Date 04/18/22 Electronically Signed by: Caroline Calloway, PT 02/19/22 2281 If you are in agreement with this Plan of Care, please return a signed and dated copy. I have reviewed this Plan of Care and certify that the skilled therapy services above are required to meet the patient?s needs. Physician Signature Date Printed Name and Credentials Clinical Instructor Signature Printed Name and Credentials
--- NOTE | 2022-02-20 18:49 | PT.OTN ---
Current Diagnoses Difficulty in walking, not elsewhere classified (02/20/22) Other symptoms and signs involving the musculoskeletal system (02/20/22) Presence of right artificial hip joint (02/20/22) Physical Therapy Treatment Note PT-OP-A Visit Information Start: 10/04/21 16:21 Freq: Status: Active Protocol: Document 02/20/22 14:37 NBM (Rec: 02/20/22 18:45 NBM [id number]) Out-Patient Physical Therapy Visit Information Visit Information Visit Type Treatment Note Visit Start Time 14:30 Visit Stop Time 15:10 Total Visit Minutes 40 Visit Number 22 Number of DIRECTOR FAMILY Visits 1 PT-OP-B Current Condition Start: 10/04/21 16:21 Freq: Status: Active Protocol: Document 10/05/21 15:15 AW (Rec: 10/05/21 13:25 AW [id number]) Current Condition History of Current Condition Onset Date July 2021 Current Complaints decreased strength and balance s/p R JOHN posterior approach History of Current Condition Chayo had R posterior hip replacement >2 months ago, went home with home health. She had a good experience with home health and is having no significant pain. She now walks with 4WW nearly 100% of the time and can walk at least 1000 feet in <10 minutes. She does best with good ankle support. She had at least three bad falls before surgery which makes her hesitant to walk without a walker. 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 Prior Treatments and Tests Previous PT for back, hip, and knee pain Treatment Goals Patient/Caregiver Goals Pt would like to walk without assistive device. Thinks she needs to unlearn gait compensations. Current Functional Impairments (Reported) Functional Limitations- Other Difficulty walking without 4WW . Uses 4WW to be able to transport objects while cooking or doing other tasks. Personal Factors Other Personal Factors That May Effect Ovarian CA, breast CA, Therapy/Recovery hypertension, BMI 39.5 PT-OP-C Subjective Start: 10/04/21 16:21 Freq: Status: Active Protocol: Document 02/20/22 14:37 NBM (Rec: 02/20/22 15:20 NBM [id number]) OP-PT Subjective Patient Comments Patient Comments Pt states her L knee has been sore and swollen since PT evaluation. She reports she no longer uses the walker on the weekends because she goes to a home that does not accommodate it anyway. PT-OP-D Balance Start: 10/04/21 16:21 Freq: Status: Active Protocol: Document 10/05/21 15:15 AW (Rec: 10/08/21 16:40 AW [id number]) Tinetti Balance Assessment Sitting Balance Sitting Balance Steady, safe Arising from Chair Attempts to Arise Able, requires >1 attempt Standing Balance Immediate Standing Balance Steady w/o support Standing Balance Steady, wide stance Nudged Response Staggers, catches self Standing with Eyes Closed Unsteady Turning Step Pattern Turning 360 Degrees Continuous steps Stability Turning 360 Degrees Unsteady, grabs/staggers Sitting Down Sitting Down Uses arms or unsteady Gait and Step Initiation of Gait No hesitancy Right Foot Step Length Does not pass stance ft. Right Foot Step Height Completely clears floor Left Foot Step Length Does not pass stance foot Left Foot Step Height Completely clears floor Step Description Step Symmetry Step length appears equal Step Continuity Steps appear continuous Gait Description Path Description Mild/moderate deviation Trunk Description Marked sway or uses aide Walking Stance Heels together Scoring and Interpretation Tinetti Composite Score (points) 15 Interpretation of Scores High risk for falls(< 19) Tinetti Impairment Rating from Composite 40 to <60% Impaired (Score 12- Score 16) PT-OP-E Functional Tests Start: 10/04/21 16:21 Freq: Status: Active Protocol: Document 10/05/21 15:15 AW (Rec: 10/08/21 16:40 AW [id number]) Functional Tests 2 Minute Walk Test Distance 190 feet in 101 seconds Device Used 4WW Comments average gait speed 0.57 m/s PT-OP-F Manual Assessment Start: 10/04/21 16:21 Freq: Status: Active Protocol: Document 10/05/21 15:15 AW (Rec: 10/08/21 16:41 AW [id number]) Manual Assessments Soft Tissue Assessment Soft Tissue Mobility Assessment R posterior JOHN scar with fair mobility, some evidence of adhesion. PT-OP-G Mobility & Gait Start: 10/04/21 16:21 Freq: Status: Active Protocol: Document 10/05/21 15:15 AW (Rec: 10/08/21 16:40 AW [id number]) OP Mobility Evaluation Transfers Sit to Stand Requires use of UE to stand from plinth at 23 height. OP Gait Assessment Gait Gait Assistance Required: Standby Assistance Distance (Feet) 190 Assistive Devices Assistive Device 4 Wheeled Walker Orthotic/Prosthetic Devices or Brace: No Gait Deviations General Gait Pattern Antalgic,Decreased Stride Length,Decreased Feet Clearance,Flexed Trunk,Lateral Trunk Lean Comments Gait Comments Gait notable for leftward lean and decreased right foot clearance. Bilateral knee valgus apparent with L more affected than R Stair Climbing Evaluation Evaluation Level of Assist On Stairs Standby Assistance Devices Stair Climbing Assistive Devices Left Railing,Right Railing Technique/Endurance Stair Climbing Direction Ascend and Descend Stair Climbing Technique Step to Step PT-OP-K Range of Motion Start: 10/04/21 16:21 Freq: Status: Active Protocol: Document 10/05/21 15:15 AW (Rec: 10/08/21 16:51 AW [id number]) Hip Goniometric Range of Motion Hip Right Hip ROM WFL Yes Testing Position Supine Comments No restriction within precautions. End range flexion and IR not tested. PT-OP-M Strength Start: 10/04/21 16:21 Freq: Status: Active Protocol: Document 10/05/21 15:15 AW (Rec: 10/08/21 16:51 AW [id number]) Hip Strength Hip Manual Muscle Testing Left Flexion (L2) 4 Good Extension (S1) 3+ Fair+ Abduction 4 Good Right Flexion (L2) 4- Good- Extension (S1) 3+ Fair+ Abduction 4- Good- Knee Strength Knee Manual Muscle Testing Left Flexion (S2) 4+ Good+ Extension (L3) 4+ Good+ Comments Pain with all resisted movement on the left knee. Right Flexion (S2) 4 Good Extension (L3) 4+ Good+ Ankle/Foot Strength Ankle and Foot Manual Muscle Testing bilateral Dorsiflexion (L4) 4+ Good+ Plantarflexion (S1) 4 Good PT-OP-Q Treatments Start: 10/04/21 16:21 Freq: Status: Active Protocol: Document 02/20/22 14:37 NBM (Rec: 02/20/22 15:20 NBM [id number]) Therapeutic Exercises Sitting Exercises PF with t band Sitting Exercise Name PF/DF Side left Resistance #3 band Equipment Used 2x10 Comments cues for ankle only LAQ Sitting Exercise Name LAQ w/ ankle EV neutral Side left Resistance AROM> #3 loop Reps/Minutes 2x5 reps Comments good form Hamstring curl Sitting Exercise Name HS Curl Side bilateral Resistance Lv 3 Equipment Used seated fully back in chair Reps/Minutes 2x10 ea Standing Exercises Hip abduction Standing Exercise Name Hip Abduction Side left Equipment Used rail mod- heavy UE support Reps/Minutes 3 reps L stance, 10 reps R stance Comments challenged RLE abd L knee cave , RLE hip abd weak, toes fwd Manual Therapy Treatment Soft Tissue Mobilization L knee Body Location distal quads Mobilization Type Rolling,Strumming,Sustained Pressure Intensity/Depth Moderate Body Position Hooklying retrograde STM Body Location L quad, VMO Mobilization Type Myofascial Release Intensity/Depth Superficial Body Position Hooklying Comments manual, good response, decrease swelling L knee PT-OP-R Modalities Start: 10/04/21 16:21 Freq: Status: Active Protocol: Document 02/20/22 14:37 NBM (Rec: 02/20/22 18:36 [facility] [id number]) Hot Pack/Cold Pack Treatment Cold Pack Location L knee Patient Position Hooklying Treatment Duration (minutes) 10 Patient Tolerance Good Comments [place] and needs within reach PT-OP-T Assessment and Plan Start: 10/04/21 16:21 Freq: Status: Active Protocol: Document 02/20/22 14:37 NBM (Rec: 02/20/22 15:20 [facility] [id number]) Physical Therapy Assessment Goals Five Impairment LEFS Beam Racker Goal (LTG) Pt will score 60/80 or greater on LEFS to demonstrate improvement in daily function. LTG Duration 04/16/22 Four Impairment decreased balance Short Term Goal (STG) Pt will score 19 or higher on Tinetti. 11/23/21 - GOAL MET. STG Duration 5 weeks - 11/09/21 GOAL MET Senior Care Goal (LTG) Pt will score within age- matched norms on Dynamic Gait Index as a measure of reduced falls risk. 02/16: 06/09 LTG Duration 04/16/22 Three Impairment BLE strength Short Term Goal (STG) Pt will rise from a 21 tall surface without use of hands 11/21/21: requires use of BUE to come to standing, elevated black table, not measurered. 11/23/21 - Pt can rise from 20 mat without use of hands 4 times. STG Duration GOAL MET Beam Racker Goal (LTG) Pt will complete 5 Time Sit to Stand from a standard height chair without use of hands in 15 seconds or less as a measure of improved BLE strength and power. LTG Duration 10 weeks - 02/16: partiall met 19 seconds Two Impairment needs assistive device, gait speed Short Term Goal (STG) Pt will walk 1100 feet on 6MWT with SPC or LRAD as a measure of improved efficiency in gait. 11/23/21 - Pt ambulates 633 feet in six min with FWW 02/16: 410 with one seated rest break due to left knee pain STG Duration 03/16/22 Beam Racker Goal (LTG) Pt will walk 1200 feet or greater on 6MWT with SPC or no AD as a measure of improved gait speed for safe community ambulation. LTG Duration 04/16/22 One Impairment lacks HEP Short Term Goal (STG) Pt will be instructed in HEP for BLE strength and ROM within hip precautions 11/21/21: progressing: side clam w/ pillow, bridge w/ TB, STS with band, LAQ, band walk, heel raises, seated hip abd TB . STG Duration 5 weeks - 11/09/21 (progressing : 11/21/21) Assessment Summary Assessment Pt requires consistent cues throughout treatment session for excessive hip ER L>R; L knee pain improves with cueing for toes forward. Pt demonstrates improved upright posture w/ SPC but continues to be challenged with knee valgus. Pt would benefit from continued skilled therapeutic intervention. Physical Therapy Plan Next Visit Focus/Plan Next Note Type Progress Note Next Visit Plan SLS; gait training w/ SPC. Continue hip abd and adductor strengthening. POC: Progress strength and balance as able. Continue gait training with SPC.
--- NOTE | 2022-03-07 16:59 | PT.OTN ---
Current Diagnoses Difficulty in walking, not elsewhere classified (02/20/22) Other symptoms and signs involving the musculoskeletal system (02/20/22) Presence of right artificial hip joint (02/20/22) Physical Therapy Treatment Note PT-OP-A Visit Information Start: 10/04/21 16:21 Freq: Status: Active Protocol: Document 03/07/22 16:00 AW (Rec: 03/07/22 16:51 AW [id number]) Out-Patient Physical Therapy Visit Information Visit Information Visit Type Treatment Note Visit Start Time 16:01 Visit Stop Time 16:45 Total Visit Minutes 44 Visit Number 23 Number of CLINICAL REHABILITATION COORDINATOR Visits 0 PT-OP-B Current Condition Start: 10/04/21 16:21 Freq: Status: Active Protocol: Document 10/05/21 15:15 AW (Rec: 10/05/21 13:25 AW [id number]) Current Condition History of Current Condition Onset Date July 2021 Current Complaints decreased strength and balance s/p R JOHN posterior approach History of Current Condition Chayo had R posterior hip replacement >2 months ago, went home with home health. She had a good experience with home health and is having no significant pain. She now walks with 4WW nearly 100% of the time and can walk at least 1000 feet in <10 minutes. She does best with good ankle support. She had at least three bad falls before surgery which makes her hesitant to walk without a walker. 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 Prior Treatments and Tests Previous PT for back, hip, and knee pain Treatment Goals Patient/Caregiver Goals Pt would like to walk without assistive device. Thinks she needs to unlearn gait compensations. Current Functional Impairments (Reported) Functional Limitations- Other Difficulty walking without 4WW . Uses 4WW to be able to transport objects while cooking or doing other tasks. Personal Factors Other Personal Factors That May Effect Ovarian CA, breast CA, Therapy/Recovery hypertension, BMI 39.5 PT-OP-C Subjective Start: 10/04/21 16:21 Freq: Status: Active Protocol: Document 03/07/22 16:00 AW (Rec: 03/07/22 16:51 AW [id number]) OP-PT Subjective Patient Comments Patient Comments Since last visit, pt went to her reunion and has travelled to [place]. She took her walker but did not need it, opting for her cane instead. She sometimes forgets her cane and does not miss it. Getting supramalleolar orthosis for left ankle made for her and should have it tomorrow. PT-OP-D Balance Start: 10/04/21 16:21 Freq: Status: Active Protocol: Document 10/05/21 15:15 AW (Rec: 10/08/21 16:40 AW [id number]) Tinetti Balance Assessment Sitting Balance Sitting Balance Steady, safe Arising from Chair Attempts to Arise Able, requires >1 attempt Standing Balance Immediate Standing Balance Steady w/o support Standing Balance Steady, wide stance Nudged Response Staggers, catches self Standing with Eyes Closed Unsteady Turning Step Pattern Turning 360 Degrees Continuous steps Stability Turning 360 Degrees Unsteady, grabs/staggers Sitting Down Sitting Down Uses arms or unsteady Gait and Step Initiation of Gait No hesitancy Right Foot Step Length Does not pass stance ft. Right Foot Step Height Completely clears floor Left Foot Step Length Does not pass stance foot Left Foot Step Height Completely clears floor Step Description Step Symmetry Step length appears equal Step Continuity Steps appear continuous Gait Description Path Description Mild/moderate deviation Trunk Description Marked sway or uses aide Walking Stance Heels together Scoring and Interpretation Tinetti Composite Score (points) 15 Interpretation of Scores High risk for falls(< 19) Tinetti Impairment Rating from Composite 40 to <60% Impaired (Score 12- Score 16) PT-OP-E Functional Tests Start: 10/04/21 16:21 Freq: Status: Active Protocol: Document 10/05/21 15:15 AW (Rec: 10/08/21 16:40 AW [id number]) Functional Tests 2 Minute Walk Test Distance 190 feet in 101 seconds Device Used 4WW Comments average gait speed 0.57 m/s PT-OP-F Manual Assessment Start: 10/04/21 16:21 Freq: Status: Active Protocol: Document 10/05/21 15:15 AW (Rec: 10/08/21 16:41 AW [id number]) Manual Assessments Soft Tissue Assessment Soft Tissue Mobility Assessment R posterior JOHN scar with fair mobility, some evidence of adhesion. PT-OP-G Mobility & Gait Start: 10/04/21 16:21 Freq: Status: Active Protocol: Document 10/05/21 15:15 AW (Rec: 10/08/21 16:40 AW [id number]) OP Mobility Evaluation Transfers Sit to Stand Requires use of UE to stand from plinth at 23 height. OP Gait Assessment Gait Gait Assistance Required: Standby Assistance Distance (Feet) 190 Assistive Devices Assistive Device 4 Wheeled Walker Orthotic/Prosthetic Devices or Brace: No Gait Deviations General Gait Pattern Antalgic,Decreased Stride Length,Decreased Feet Clearance,Flexed Trunk,Lateral Trunk Lean Comments Gait Comments Gait notable for leftward lean and decreased right foot clearance. Bilateral knee valgus apparent with L more affected than R Stair Climbing Evaluation Evaluation Level of Assist On Stairs Standby Assistance Devices Stair Climbing Assistive Devices Left Railing,Right Railing Technique/Endurance Stair Climbing Direction Ascend and Descend Stair Climbing Technique Step to Step PT-OP-K Range of Motion Start: 10/04/21 16:21 Freq: Status: Active Protocol: Document 10/05/21 15:15 AW (Rec: 10/08/21 16:51 AW [id number]) Hip Goniometric Range of Motion Hip Right Hip ROM WFL Yes Testing Position Supine Comments No restriction within precautions. End range flexion and IR not tested. PT-OP-M Strength Start: 10/04/21 16:21 Freq: Status: Active Protocol: Document 10/05/21 15:15 AW (Rec: 10/08/21 16:51 AW [id number]) Hip Strength Hip Manual Muscle Testing Left Flexion (L2) 4 Good Extension (S1) 3+ Fair+ Abduction 4 Good Right Flexion (L2) 4- Good- Extension (S1) 3+ Fair+ Abduction 4- Good- Knee Strength Knee Manual Muscle Testing Left Flexion (S2) 4+ Good+ Extension (L3) 4+ Good+ Comments Pain with all resisted movement on the left knee. Right Flexion (S2) 4 Good Extension (L3) 4+ Good+ Ankle/Foot Strength Ankle and Foot Manual Muscle Testing bilateral Dorsiflexion (L4) 4+ Good+ Plantarflexion (S1) 4 Good PT-OP-Q Treatments Start: 10/04/21 16:21 Freq: Status: Active Protocol: Document 03/07/22 16:00 AW (Rec: 03/07/22 16:51 AW [id number]) Cardio Equipment Recumbent Stepper (Sci-Fit) Duration (Minutes) 7 Resistance 2 Seat Position 8 Therapeutic Exercises Sitting Exercises Step taps Sitting Exercise Name Fwd (unable in standing due to L knee instability) Equipment Used 4 step Comments vc to avoid circumduction; hip flex PF with t band Sitting Exercise Name PF/DF, eversion Side left Resistance #3 band Equipment Used 2x10 Comments cues for ankle only Hamstring curl Sitting Exercise Name HS Curl Side bilateral Resistance Lv 3 Equipment Used seated fully back in chair Reps/Minutes 2x10 ea Standing Exercises Hip abduction Standing Exercise Name Hip Abduction Side left Equipment Used rail mod- heavy UE support Reps/Minutes LLE stance ok; RLE stance unable due to L knee valgus Other Exercises sit to stand Other Exercise Name sit to stand Equipment Used mat table Reps/Minutes x10 Comments cued front chair, hip hinge Manual Therapy Treatment Soft Tissue Mobilization retrograde STM Body Location LLE Mobilization Type Manual Lymphatic Drainage Intensity/Depth Superficial Body Position Supine PT-OP-R Modalities Start: 10/04/21 16:21 Freq: Status: Active Protocol: Document 02/20/22 14:37 NBM (Rec: 02/20/22 18:36 NBM [id number]) Hot Pack/Cold Pack Treatment Cold Pack Location L knee Patient Position Hooklying Treatment Duration (minutes) 10 Patient Tolerance Good Comments [place] and needs within reach PT-OP-T Assessment and Plan Start: 10/04/21 16:21 Freq: Status: Active Protocol: Document 03/07/22 16:00 AW (Rec: 03/07/22 16:58 AW [id number]) Physical Therapy Assessment Goals Five Impairment LEFS Medical Surgical Tech Goal (LTG) Pt will score 60/80 or greater on LEFS to demonstrate improvement in daily function. LTG Duration 04/16/22 Four Impairment decreased balance Short Term Goal (STG) Pt will score 19 or higher on Tinetti. 11/23/21 - GOAL MET. STG Duration 5 weeks - 11/09/21 GOAL MET Medical Surgical Tech Goal (LTG) Pt will score within age- matched norms on Dynamic Gait Index as a measure of reduced falls risk. 02/16: 06/09 LTG Duration 04/16/22 Three Impairment BLE strength Short Term Goal (STG) Pt will rise from a 21 tall surface without use of hands 11/21/21: requires use of BUE to come to standing, elevated black table, not measurered. 11/23/21 - Pt can rise from 20 mat without use of hands 4 times. STG Duration GOAL MET Mcfp Goal (LTG) Pt will complete 5 Time Sit to Stand from a standard height chair without use of hands in 15 seconds or less as a measure of improved BLE strength and power. LTG Duration 10 weeks - 02/16: partiall met 19 seconds Two Impairment needs assistive device, gait speed Short Term Goal (STG) Pt will walk 1100 feet on 6MWT with SPC or LRAD as a measure of improved efficiency in gait. 11/23/21 - Pt ambulates 633 feet in six min with FWW 02/16: 410 with one seated rest break due to left knee pain STG Duration 03/16/22 Mcfp Goal (LTG) Pt will walk 1200 feet or greater on 6MWT with SPC or no AD as a measure of improved gait speed for safe community ambulation. LTG Duration 04/16/22 One Impairment lacks HEP Short Term Goal (STG) Pt will be instructed in HEP for BLE strength and ROM within hip precautions 11/21/21: progressing: side clam w/ pillow, bridge w/ TB, STS with band, LAQ, band walk, heel raises, seated hip abd TB . STG Duration 5 weeks - 11/09/21 (progressing : 11/21/21) Assessment Summary Assessment Pt is getting a custom supramalleolar orthosis from [facility] tomorrow which may help improve her LLE alignment . Left knee pain is limiting factor but gait and strength have improved significantly since last seen by this PT. Plan to continue focus on hip strength for improved gait. Physical Therapy Plan Frequency and Duration Frequency of Treatment 2x/Week Duration of Treatment 2 months Plan of Care Start Date 02/16/22 Plan of Care End Date 04/18/22 Therapeutic Interventions Therapeutic Interventions Balance Training,Gait Training ,Home Exercise Program,Manual Therapy,Neuromuscular Re- education,Self-Care/Home Management,Soft Tissue Mobilization,Therapeutic Activities,Therapeutic Exercises Modalities Cold Pack/Ice Massage,Hot Packs Next Visit Focus/Plan Next Note Type Treatment Note Next Visit Plan SLS; gait training w/ SPC. Continue hip abd and adductor strengthening. POC: Progress strength and balance as able. Continue gait training with SPC.
--- NOTE | 2022-03-14 20:45 | PT.OTN ---
Current Diagnoses Difficulty in walking, not elsewhere classified (03/14/22) Other symptoms and signs involving the musculoskeletal system (03/14/22) Presence of right artificial hip joint (03/14/22) Physical Therapy Treatment Note PT-OP-A Visit Information Start: 10/04/21 16:21 Freq: Status: Active Protocol: Document 03/14/22 13:57 AMB (Rec: 03/14/22 14:26 AMB [id number]) Out-Patient Physical Therapy Visit Information Visit Information Visit Type Treatment Note Visit Start Time 16:01 Visit Stop Time 16:45 Total Visit Minutes 44 Visit Number 24 Number of RADIATION OFFICER Visits 0 PT-OP-B Current Condition Start: 10/04/21 16:21 Freq: Status: Active Protocol: Document 10/05/21 15:15 AW (Rec: 10/05/21 13:25 AW [id number]) Current Condition History of Current Condition Onset Date July 2021 Current Complaints decreased strength and balance s/p R JOHN posterior approach History of Current Condition Chayo had R posterior hip replacement >2 months ago, went home with home health. She had a good experience with home health and is having no significant pain. She now walks with 4WW nearly 100% of the time and can walk at least 1000 feet in <10 minutes. She does best with good ankle support. She had at least three bad falls before surgery which makes her hesitant to walk without a walker. 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 Prior Treatments and Tests Previous PT for back, hip, and knee pain Treatment Goals Patient/Caregiver Goals Pt would like to walk without assistive device. Thinks she needs to unlearn gait compensations. Current Functional Impairments (Reported) Functional Limitations- Other Difficulty walking without 4WW . Uses 4WW to be able to transport objects while cooking or doing other tasks. Personal Factors Other Personal Factors That May Effect Ovarian CA, breast CA, Therapy/Recovery hypertension, BMI 39.5 PT-OP-C Subjective Start: 10/04/21 16:21 Freq: Status: Active Protocol: Document 03/14/22 13:57 AMB (Rec: 03/14/22 14:26 AMB [id number]) OP-PT Subjective Patient Comments Patient Comments Pt reports ankle orthosis has been put off another 2 weeks. Feels like she is getting stronger. PT-OP-D Balance Start: 04/20/22 16:21 Freq: Status: Active Protocol: Document 10/05/21 15:15 AW (Rec: 10/08/21 16:40 AW [id number]) Tinetti Balance Assessment Sitting Balance Sitting Balance Steady, safe Arising from Chair Attempts to Arise Able, requires >1 attempt Standing Balance Immediate Standing Balance Steady w/o support Standing Balance Steady, wide stance Nudged Response Staggers, catches self Standing with Eyes Closed Unsteady Turning Step Pattern Turning 360 Degrees Continuous steps Stability Turning 360 Degrees Unsteady, grabs/staggers Sitting Down Sitting Down Uses arms or unsteady Gait and Step Initiation of Gait No hesitancy Right Foot Step Length Does not pass stance ft. Right Foot Step Height Completely clears floor Left Foot Step Length Does not pass stance foot Left Foot Step Height Completely clears floor Step Description Step Symmetry Step length appears equal Step Continuity Steps appear continuous Gait Description Path Description Mild/moderate deviation Trunk Description Marked sway or uses aide Walking Stance Heels together Scoring and Interpretation Tinetti Composite Score (points) 15 Interpretation of Scores High risk for falls(< 19) Tinetti Impairment Rating from Composite 40 to <60% Impaired (Score 12- Score 16) PT-OP-E Functional Tests Start: 10/04/21 16:21 Freq: Status: Active Protocol: Document 10/05/21 15:15 AW (Rec: 10/08/21 16:40 AW [id number]) Functional Tests 2 Minute Walk Test Distance 190 feet in 101 seconds Device Used 4WW Comments average gait speed 0.57 m/s PT-OP-F Manual Assessment Start: 10/04/21 16:21 Freq: Status: Active Protocol: Document 10/05/21 15:15 AW (Rec: 10/08/21 16:41 AW [id number]) Manual Assessments Soft Tissue Assessment Soft Tissue Mobility Assessment R posterior JOHN scar with fair mobility, some evidence of adhesion. PT-OP-G Mobility & Gait Start: 10/04/21 16:21 Freq: Status: Active Protocol: Document 10/05/21 15:15 AW (Rec: 10/08/21 16:40 AW [id number]) OP Mobility Evaluation Transfers Sit to Stand Requires use of UE to stand from plinth at 23 height. OP Gait Assessment Gait Gait Assistance Required: Standby Assistance Distance (Feet) 190 Assistive Devices Assistive Device 4 Wheeled Walker Orthotic/Prosthetic Devices or Brace: No Gait Deviations General Gait Pattern Antalgic,Decreased Stride Length,Decreased Feet Clearance,Flexed Trunk,Lateral Trunk Lean Comments Gait Comments Gait notable for leftward lean and decreased right foot clearance. Bilateral knee valgus apparent with L more affected than R Stair Climbing Evaluation Evaluation Level of Assist On Stairs Standby Assistance Devices Stair Climbing Assistive Devices Left Railing,Right Railing Technique/Endurance Stair Climbing Direction Ascend and Descend Stair Climbing Technique Step to Step PT-OP-K Range of Motion Start: 10/04/21 16:21 Freq: Status: Active Protocol: Document 10/05/21 15:15 AW (Rec: 10/08/21 16:51 AW [id number]) Hip Goniometric Range of Motion Hip Right Hip ROM WFL Yes Testing Position Supine Comments No restriction within precautions. End range flexion and IR not tested. PT-OP-M Strength Start: 10/04/21 16:21 Freq: Status: Active Protocol: Document 10/05/21 15:15 AW (Rec: 10/08/21 16:51 AW [id number]) Hip Strength Hip Manual Muscle Testing Left Flexion (L2) 4 Good Extension (S1) 3+ Fair+ Abduction 4 Good Right Flexion (L2) 4- Good- Extension (S1) 3+ Fair+ Abduction 4- Good- Knee Strength Knee Manual Muscle Testing Left Flexion (S2) 4+ Good+ Extension (L3) 4+ Good+ Comments Pain with all resisted movement on the left knee. Right Flexion (S2) 4 Good Extension (L3) 4+ Good+ Ankle/Foot Strength Ankle and Foot Manual Muscle Testing bilateral Dorsiflexion (L4) 4+ Good+ Plantarflexion (S1) 4 Good PT-OP-Q Treatments Start: 10/04/21 16:21 Freq: Status: Active Protocol: Document 03/14/22 13:57 AMB (Rec: 03/14/22 14:26 AMB [id number]) Gym Equipment Shuttle Recovery Unilateral Squats Details tactile/ VC knee with toes (L knee ER/ABD align) Resistance 37# Shuttle Recovery Platform Stable Reps/Time 2x20 each LE Bilateral Squats Resistance 50# Shuttle Recovery Platform Stable Reps/Time 2x20 Therapeutic Exercises Sidelying Exercises Clagahell Sidelying Exercise Name Clamshell Side bilateral Equipment Used hand on hip for stacked alignment self support Reps/Minutes 2x20 Comments good form tiring response Sitting Exercises hip abd Side bilateral Resistance TB #3 (hold band at side thighs after tie) Reps/Minutes 2x10 Standing Exercises step up/down Standing Exercise Name fwd, side step ups Side bilateral Equipment Used 4 step, rail 1UE support/SPC in other UE Reps/Minutes x5 each all time for Comments no pain reported, cued knee alignment with toes, hip abd fac/pelvis under Other Exercises sit to stand Other Exercise Name sit to stand Equipment Used mat table Reps/Minutes x10 Comments cued front chair, hip hinge Manual Therapy Treatment Soft Tissue Mobilization retrograde STM Body Location LLE Mobilization Type Manual Lymphatic Drainage Intensity/Depth Superficial Body Position Supine PT-OP-R Modalities Start: 10/04/21 16:21 Freq: Status: Active Protocol: Document 02/20/22 14:37 NBM (Rec: 02/20/22 18:36 NBM [id number]) Hot Pack/Cold Pack Treatment Cold Pack Location L knee Patient Position Hooklying Treatment Duration (minutes) 10 Patient Tolerance Good Comments [place] and needs within reach PT-OP-T Assessment and Plan Start: 10/04/21 16:21 Freq: Status: Active Protocol: Document 03/14/22 13:57 AMB (Rec: 03/14/22 14:26 AMB [id number]) Physical Therapy Assessment Goals Five Impairment LEFS Insurance Agents Supervisor Goal (LTG) Pt will score 60/80 or greater on LEFS to demonstrate improvement in daily function. LTG Duration 04/16/22 Four Impairment decreased balance Short Term Goal (STG) Pt will score 19 or higher on Tinetti. 11/23/21 - GOAL MET. STG Duration 5 weeks - 11/09/21 GOAL MET Longterm Goal (LTG) Pt will score within age- matched norms on Dynamic Gait Index as a measure of reduced falls risk. 02/16: 06/09 LTG Duration 04/16/22 Three Impairment BLE strength Short Term Goal (STG) Pt will rise from a 21 tall surface without use of hands 11/21/21: requires use of BUE to come to standing, elevated black table, not measurered. 11/23/21 - Pt can rise from 20 mat without use of hands 4 times. STG Duration GOAL MET Longterm Goal (LTG) Pt will complete 5 Time Sit to Stand from a standard height chair without use of hands in 15 seconds or less as a measure of improved BLE strength and power. LTG Duration 10 weeks - 02/16: partiall met 19 seconds Two Impairment needs assistive device, gait speed Short Term Goal (STG) Pt will walk 1100 feet on 6MWT with SPC or LRAD as a measure of improved efficiency in gait. 11/23/21 - Pt ambulates 633 feet in six min with FWW 02/16: 410 with one seated rest break due to left knee pain STG Duration 03/16/22 Longterm Goal (LTG) Pt will walk 1200 feet or greater on 6MWT with SPC or no AD as a measure of improved gait speed for safe community ambulation. LTG Duration 04/16/22 One Impairment lacks HEP Short Term Goal (STG) Pt will be instructed in HEP for BLE strength and ROM within hip precautions 11/21/21: progressing: side clam w/ pillow, bridge w/ TB, STS with band, LAQ, band walk, heel raises, seated hip abd TB . STG Duration 5 weeks - 11/09/21 (progressing : 11/21/21) Assessment Summary Assessment Chayo is still waiting for orthotics. Notes knee valgus worsens with fatigue. Pt fatigues fairly quickly, but is using SPC more and more at this point. Good understanding of HEP, but continues to fatigue quickly. Physical Therapy Plan Frequency and Duration Frequency of Treatment 2x/Week Plan of Care Start Date 02/16/22 Plan of Care End Date 04/18/22 Therapeutic Interventions Therapeutic Interventions Balance Training,Gait Training ,Home Exercise Program,Manual Therapy,Neuromuscular Re- education,Self-Care/Home Management,Soft Tissue Mobilization,Therapeutic Activities,Therapeutic Exercises Modalities Cold Pack/Ice Massage,Hot Packs Next Visit Focus/Plan Next Note Type Treatment Note Next Visit Plan SLS; gait training w/ SPC. Continue hip abd and adductor strengthening. POC: Progress strength and balance as able. Continue gait training with SPC.
--- NOTE | 2022-03-21 14:30 | PT.OTN ---
Current Diagnoses Difficulty in walking, not elsewhere classified (03/21/22) Other symptoms and signs involving the musculoskeletal system (03/21/22) Presence of right artificial hip joint (03/21/22) Physical Therapy Treatment Note PT-OP-A Visit Information Start: 10/04/21 16:21 Freq: Status: Active Protocol: Document 03/21/22 13:50 SP (Rec: 03/21/22 14:34 SP [id number]) Out-Patient Physical Therapy Visit Information Visit Information Visit Type Treatment Note Visit Start Time 13:50 Visit Stop Time 14:30 Total Visit Minutes 40 Visit Number 25 Number of LABORER VINEYARD Visits 1 Precautions Precautions posterior R JOHN 07/28/21 PT-OP-B Current Condition Start: 10/04/21 16:21 Freq: Status: Active Protocol: Document 10/05/21 15:15 AW (Rec: 10/05/21 13:25 AW [id number]) Current Condition History of Current Condition Onset Date July 2021 Current Complaints decreased strength and balance s/p R JOHN posterior approach History of Current Condition Chayo had R posterior hip replacement >2 months ago, went home with home health. She had a good experience with home health and is having no significant pain. She now walks with 4WW nearly 100% of the time and can walk at least 1000 feet in <10 minutes. She does best with good ankle support. She had at least three bad falls before surgery which makes her hesitant to walk without a walker. 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 Prior Treatments and Tests Previous PT for back, hip, and knee pain Treatment Goals Patient/Caregiver Goals Pt would like to walk without assistive device. Thinks she needs to unlearn gait compensations. Current Functional Impairments (Reported) Functional Limitations- Other Difficulty walking without 4WW . Uses 4WW to be able to transport objects while cooking or doing other tasks. Personal Factors Other Personal Factors That May Effect Ovarian CA, breast CA, Therapy/Recovery hypertension, BMI 39.5 PT-OP-C Subjective Start: 10/04/21 16:21 Freq: Status: Active Protocol: Document 03/21/22 13:50 SP (Rec: 03/21/22 14:34 SP [id number]) OP-PT Subjective Patient Comments Patient Comments Pt stated over did it on Saturday, walking at [employer] shopping and wB into L arm on SPC causing pain. Wants to give time on L shld hurting. PT-OP-D Balance Start: 10/04/21 16:21 Freq: Status: Active Protocol: Document 10/05/21 15:15 AW (Rec: 10/08/21 16:40 AW [id number]) Tinetti Balance Assessment Sitting Balance Sitting Balance Steady, safe Arising from Chair Attempts to Arise Able, requires >1 attempt Standing Balance Immediate Standing Balance Steady w/o support Standing Balance Steady, wide stance Nudged Response Staggers, catches self Standing with Eyes Closed Unsteady Turning Step Pattern Turning 360 Degrees Continuous steps Stability Turning 360 Degrees Unsteady, grabs/staggers Sitting Down Sitting Down Uses arms or unsteady Gait and Step Initiation of Gait No hesitancy Right Foot Step Length Does not pass stance ft. Right Foot Step Height Completely clears floor Left Foot Step Length Does not pass stance foot Left Foot Step Height Completely clears floor Step Description Step Symmetry Step length appears equal Step Continuity Steps appear continuous Gait Description Path Description Mild/moderate deviation Trunk Description Marked sway or uses aide Walking Stance Heels together Scoring and Interpretation Tinetti Composite Score (points) 15 Interpretation of Scores High risk for falls(< 19) Tinetti Impairment Rating from Composite 40 to <60% Impaired (Score 12- Score 16) PT-OP-E Functional Tests Start: 10/04/21 16:21 Freq: Status: Active Protocol: Document 10/05/21 15:15 AW (Rec: 10/08/21 16:40 AW [id number]) Functional Tests 2 Minute Walk Test Distance 190 feet in 101 seconds Device Used 4WW Comments average gait speed 0.57 m/s PT-OP-F Manual Assessment Start: 10/04/21 16:21 Freq: Status: Active Protocol: Document 10/05/21 15:15 AW (Rec: 10/08/21 16:41 AW [id number]) Manual Assessments Soft Tissue Assessment Soft Tissue Mobility Assessment R posterior JOHN scar with fair mobility, some evidence of adhesion. PT-OP-G Mobility & Gait Start: 10/04/21 16:21 Freq: Status: Active Protocol: Document 10/05/21 15:15 AW (Rec: 10/08/21 16:40 AW [id number]) OP Mobility Evaluation Transfers Sit to Stand Requires use of UE to stand from plinth at 23 height. OP Gait Assessment Gait Gait Assistance Required: Standby Assistance Distance (Feet) 190 Assistive Devices Assistive Device 4 Wheeled Walker Orthotic/Prosthetic Devices or Brace: No Gait Deviations General Gait Pattern Antalgic,Decreased Stride Length,Decreased Feet Clearance,Flexed Trunk,Lateral Trunk Lean Comments Gait Comments Gait notable for leftward lean and decreased right foot clearance. Bilateral knee valgus apparent with L more affected than R Stair Climbing Evaluation Evaluation Level of Assist On Stairs Standby Assistance Devices Stair Climbing Assistive Devices Left Railing,Right Railing Technique/Endurance Stair Climbing Direction Ascend and Descend Stair Climbing Technique Step to Step PT-OP-K Range of Motion Start: 10/04/21 16:21 Freq: Status: Active Protocol: Document 10/05/21 15:15 AW (Rec: 10/08/21 16:51 AW [id number]) Hip Goniometric Range of Motion Hip Right Hip ROM WFL Yes Testing Position Supine Comments No restriction within precautions. End range flexion and IR not tested. PT-OP-M Strength Start: 10/04/21 16:21 Freq: Status: Active Protocol: Document 10/05/21 15:15 AW (Rec: 10/08/21 16:51 AW [id number]) Hip Strength Hip Manual Muscle Testing Left Flexion (L2) 4 Good Extension (S1) 3+ Fair+ Abduction 4 Good Right Flexion (L2) 4- Good- Extension (S1) 3+ Fair+ Abduction 4- Good- Knee Strength Knee Manual Muscle Testing Left Flexion (S2) 4+ Good+ Extension (L3) 4+ Good+ Comments Pain with all resisted movement on the left knee. Right Flexion (S2) 4 Good Extension (L3) 4+ Good+ Ankle/Foot Strength Ankle and Foot Manual Muscle Testing bilateral Dorsiflexion (L4) 4+ Good+ Plantarflexion (S1) 4 Good PT-OP-Q Treatments Start: 10/04/21 16:21 Freq: Status: Active Protocol: Document 03/21/22 13:50 SP (Rec: 03/21/22 14:34 SP [id number]) Therapeutic Exercises Supine Exercises Shld flex, serratus punch Side bilateral Resistance AROM> #1 DB, 2# painful so stopped Reps/Minutes x10 each Comments muscle work effort not pain. Sidelying Exercises Clamshell Sidelying Exercise Name Clamshell Side bilateral Equipment Used hand on hip for stacked alignment self support Reps/Minutes 2x20 Comments good form tiring response Sitting Exercises theracane/ball wall STMs Sitting Exercise Name ed for UT, inter scap Reps/Minutes 5 min Comments good feedback MWM, pin scap ROM/CS nods/turns Other Exercises sit to stand Other Exercise Name sit to stand Equipment Used mat table Reps/Minutes x8 reps 19 no UE support, x2 reps 18 L knee grinding feeling Comments uses little momentum. Gait Training Gait Activity SPC Device Used SPC Level of Assistance SBA- S Surface tile, carpet Distance/Duration 130 ft Treatment Focus knee alignment, hip abd and glut fac Comments IMproved decrease LUE WB on SPC post manual and hip abd/ ther ex BLEs. Discussed may need seated rest during gait for recovery LUE Manual Therapy Treatment Soft Tissue Mobilization L shld Body Location L suprasp, infrasp, bicep, distal pec Mobilization Type Strumming,Sustained Pressure Intensity/Depth Superficial Body Position Sidelying Comments manual L>R tightness, more muscle softening post manal assisted during clamshell ther ex. Joint Mobilizations scapulothoracic Joint L Direction retraction/depression Grade II Body Position Sidelying Reps/Duration 3 min Self-Care/Home Management Treatment Education Patient Education Home Exercise Program,Pain Management,Posture Other Education Ed pain mgt and posture standing/gait and self STMs to upper body decrease pain when LEs tire/weaken during longer distance gait. PT-OP-R Modalities Start: 10/04/21 16:21 Freq: Status: Active Protocol: Document 02/20/22 14:37 NBM (Rec: 02/20/22 18:36 NBM [id number]) Hot Pack/Cold Pack Treatment Cold Pack Location L knee Patient Position Hooklying Treatment Duration (minutes) 10 Patient Tolerance Good Comments [place] and needs within reach PT-OP-T Assessment and Plan Start: 10/04/21 16:21 Freq: Status: Active Protocol: Document 03/21/22 13:50 SP (Rec: 03/21/22 14:34 SP [id number]) Physical Therapy Assessment Goals Five Impairment LEFS Insurance Verification Specialist Goal (LTG) Pt will score 60/80 or greater on LEFS to demonstrate improvement in daily function. LTG Duration 04/16/22 Four Impairment decreased balance Short Term Goal (STG) Pt will score 19 or higher on Tinetti. 11/23/21 - GOAL MET. STG Duration 5 weeks - 11/09/21 GOAL MET Insurance Verification Specialist Goal (LTG) Pt will score within age- matched norms on Dynamic Gait Index as a measure of reduced falls risk. 02/16: 06/09 LTG Duration 04/16/22 Three Impairment BLE strength Short Term Goal (STG) Pt will rise from a 21 tall surface without use of hands 11/21/21: requires use of BUE to come to standing, elevated black table, not measurered. 11/23/21 - Pt can rise from 20 mat without use of hands 4 times. STG Duration GOAL MET Insurance Verification Specialist Goal (LTG) Pt will complete 5 Time Sit to Stand from a standard height chair without use of hands in 15 seconds or less as a measure of improved BLE strength and power. LTG Duration 10 weeks - 02/16: partiall met 19 seconds Two Impairment needs assistive device, gait speed Short Term Goal (STG) Pt will walk 1100 feet on 6MWT with SPC or LRAD as a measure of improved efficiency in gait. 11/23/21 - Pt ambulates 633 feet in six min with FWW 02/16: 410 with one seated rest break due to left knee pain STG Duration 03/16/22 Long-Term Goal (LTG) Pt will walk 1200 feet or greater on 6MWT with SPC or no AD as a measure of improved gait speed for safe community ambulation. LTG Duration 04/16/22 One Impairment lacks HEP Short Term Goal (STG) Pt will be instructed in HEP for BLE strength and ROM within hip precautions 11/21/21: progressing: side clam w/ pillow, bridge w/ TB, STS with band, LAQ, band walk, heel raises, seated hip abd TB . STG Duration 5 weeks - 11/09/21 (progressing : 11/21/21) Assessment Summary Assessment Pt improved upright posture, lessen LUE WB on SPC end tx post manual during LE therex. Physical Therapy Plan Frequency and Duration Frequency of Treatment 2x/Week Plan of Care Start Date 02/16/22 Plan of Care End Date 04/18/22 Therapeutic Interventions Therapeutic Interventions Balance Training,Gait Training ,Home Exercise Program,Manual Therapy,Neuromuscular Re- education,Self-Care/Home Management,Soft Tissue Mobilization,Therapeutic Activities,Therapeutic Exercises Modalities Cold Pack/Ice Massage,Hot Packs Other Referrals/Consults Referrals/Consults Recommended 03/22/22 will receive orthotics and ankle brace. Next Visit Focus/Plan Next Note Type Treatment Note Next Visit Plan SLS; gait training w/ SPC. Continue hip abd and adductor strengthening. POC: Progress strength and balance as able. Continue gait training with SPC.
--- NOTE | 2022-03-28 14:30 | PT.OTN ---
Current Diagnoses Difficulty in walking, not elsewhere classified (03/28/22) Other symptoms and signs involving the musculoskeletal system (03/28/22) Presence of right artificial hip joint (03/28/22) Physical Therapy Treatment Note PT-OP-A Visit Information Start: 10/04/21 16:21 Freq: Status: Active Protocol: Document 03/28/22 13:52 SP (Rec: 03/28/22 14:37 SP [id number]) Out-Patient Physical Therapy Visit Information Visit Information Visit Type Treatment Note Visit Start Time 13:52 Visit Stop Time 14:30 Total Visit Minutes 38 Visit Number 26 Number of TELEPHONE SOLICITOR Visits 2 Precautions Precautions posterior R JOHN 07/28/21 PT-OP-B Current Condition Start: 10/04/21 16:21 Freq: Status: Active Protocol: Document 10/05/21 15:15 AW (Rec: 10/05/21 13:25 AW [id number]) Current Condition History of Current Condition Onset Date July 2021 Current Complaints decreased strength and balance s/p R JOHN posterior approach History of Current Condition Chayo had R posterior hip replacement >2 months ago, went home with home health. She had a good experience with home health and is having no significant pain. She now walks with 4WW nearly 100% of the time and can walk at least 1000 feet in <10 minutes. She does best with good ankle support. She had at least three bad falls before surgery which makes her hesitant to walk without a walker. 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 Prior Treatments and Tests Previous PT for back, hip, and knee pain Treatment Goals Patient/Caregiver Goals Pt would like to walk without assistive device. Thinks she needs to unlearn gait compensations. Current Functional Impairments (Reported) Functional Limitations- Other Difficulty walking without 4WW . Uses 4WW to be able to transport objects while cooking or doing other tasks. Personal Factors Other Personal Factors That May Effect Ovarian CA, breast CA, Therapy/Recovery hypertension, BMI 39.5 PT-OP-C Subjective Start: 10/04/21 16:21 Freq: Status: Active Protocol: Document 03/28/22 13:52 SP (Rec: 03/28/22 14:37 SP [id number]) OP-PT Subjective Patient Comments Patient Comments Pt arrived with L custom hinge AFO bracing for LLE. Needs assist to don socks/brace, helps at home. She started the wearing schedule per Dr Betts at [facility] made for her. She is to wear 1hr / day with slowly increasing time on. She started 1 hr Fri, 1.5 hrs Sat. Is performing skin checks with no redness noted. Pt is now back to doing the grocery shopping. PT-OP-D Balance Start: 10/04/21 16:21 Freq: Status: Active Protocol: Document 10/05/21 15:15 AW (Rec: 10/08/21 16:40 AW [id number]) Tinetti Balance Assessment Sitting Balance Sitting Balance Steady, safe Arising from Chair Attempts to Arise Able, requires >1 attempt Standing Balance Immediate Standing Balance Steady w/o support Standing Balance Steady, wide stance Nudged Response Staggers, catches self Standing with Eyes Closed Unsteady Turning Step Pattern Turning 360 Degrees Continuous steps Stability Turning 360 Degrees Unsteady, grabs/staggers Sitting Down Sitting Down Uses arms or unsteady Gait and Step Initiation of Gait No hesitancy Right Foot Step Length Does not pass stance ft. Right Foot Step Height Completely clears floor Left Foot Step Length Does not pass stance foot Left Foot Step Height Completely clears floor Step Description Step Symmetry Step length appears equal Step Continuity Steps appear continuous Gait Description Path Description Mild/moderate deviation Trunk Description Marked sway or uses aide Walking Stance Heels together Scoring and Interpretation Tinetti Composite Score (points) 15 Interpretation of Scores High risk for falls(< 19) Tinetti Impairment Rating from Composite 40 to <60% Impaired (Score 12- Score 16) PT-OP-E Functional Tests Start: 10/04/21 16:21 Freq: Status: Active Protocol: Document 10/05/21 15:15 AW (Rec: 10/08/21 16:40 AW [id number]) Functional Tests 2 Minute Walk Test Distance 190 feet in 101 seconds Device Used 4WW Comments average gait speed 0.57 m/s PT-OP-F Manual Assessment Start: 10/04/21 16:21 Freq: Status: Active Protocol: Document 10/05/21 15:15 AW (Rec: 10/08/21 16:41 AW [id number]) Manual Assessments Soft Tissue Assessment Soft Tissue Mobility Assessment R posterior JOHN scar with fair mobility, some evidence of adhesion. PT-OP-G Mobility & Gait Start: 10/04/21 16:21 Freq: Status: Active Protocol: Document 10/05/21 15:15 AW (Rec: 10/08/21 16:40 AW [id number]) OP Mobility Evaluation Transfers Sit to Stand Requires use of UE to stand from plinth at 23 height. OP Gait Assessment Gait Gait Assistance Required: Standby Assistance Distance (Feet) 190 Assistive Devices Assistive Device 4 Wheeled Walker Orthotic/Prosthetic Devices or Brace: No Gait Deviations General Gait Pattern Antalgic,Decreased Stride Length,Decreased Feet Clearance,Flexed Trunk,Lateral Trunk Lean Comments Gait Comments Gait notable for leftward lean and decreased right foot clearance. Bilateral knee valgus apparent with L more affected than R Stair Climbing Evaluation Evaluation Level of Assist On Stairs Standby Assistance Devices Stair Climbing Assistive Devices Left Railing,Right Railing Technique/Endurance Stair Climbing Direction Ascend and Descend Stair Climbing Technique Step to Step PT-OP-K Range of Motion Start: 10/04/21 16:21 Freq: Status: Active Protocol: Document 10/05/21 15:15 AW (Rec: 10/08/21 16:51 AW [id number]) Hip Goniometric Range of Motion Hip Right Hip ROM WFL Yes Testing Position Supine Comments No restriction within precautions. End range flexion and IR not tested. PT-OP-M Strength Start: 10/04/21 16:21 Freq: Status: Active Protocol: Document 10/05/21 15:15 AW (Rec: 10/08/21 16:51 AW [id number]) Hip Strength Hip Manual Muscle Testing Left Flexion (L2) 4 Good Extension (S1) 3+ Fair+ Abduction 4 Good Right Flexion (L2) 4- Good- Extension (S1) 3+ Fair+ Abduction 4- Good- Knee Strength Knee Manual Muscle Testing Left Flexion (S2) 4+ Good+ Extension (L3) 4+ Good+ Comments Pain with all resisted movement on the left knee. Right Flexion (S2) 4 Good Extension (L3) 4+ Good+ Ankle/Foot Strength Ankle and Foot Manual Muscle Testing bilateral Dorsiflexion (L4) 4+ Good+ Plantarflexion (S1) 4 Good PT-OP-Q Treatments Start: 10/04/21 16:21 Freq: Status: Active Protocol: Document 03/28/22 13:52 SP (Rec: 03/28/22 14:37 SP [id number]) Gym Equipment Shuttle Balance red clips Details WBOS, stagger Reps/Duration 6 min Comments wt shift f/b Therapeutic Exercises Standing Exercises step up/down Standing Exercise Name fwd (no side step ups 03/28) Side bilateral Equipment Used 4 step L HR, 6 step L HR and SPC on R Reps/Minutes x5 each lead each LE Comments L knee pain with 6 step end tx. Other Exercises sit to stand Other Exercise Name sit to stand Equipment Used Mat table: 19 floor, 21 w/ blue foam under feet Reps/Minutes x6 reps total Comments uses little momentum, arms front-little L knee grind discomfort Gait Training Gait Activity SPC Description 6MWT Device Used SPC LUE Level of Assistance S Surface tile, carpet Distance/Duration 546 ft Treatment Focus knee alignment, hip abd and glut fac Comments L ankle hinge AFO bracing donned. PT-OP-R Modalities Start: 10/04/21 16:21 Freq: Status: Active Protocol: Document 02/20/22 14:37 NB (Rec: 02/20/22 18:36 NBM [id number]) Hot Pack/Cold Pack Treatment Cold Pack Location L knee Patient Position Hooklying Treatment Duration (minutes) 10 Patient Tolerance Good Comments [place] and needs within reach PT-OP-T Assessment and Plan Start: 10/04/21 16:21 Freq: Status: Active Protocol: Document 03/28/22 13:52 SP (Rec: 03/28/22 14:37 SP [id number]) Physical Therapy Assessment Goals Five Impairment LEFS Retirement Goal (LTG) Pt will score 60/80 or greater on LEFS to demonstrate improvement in daily function. LTG Duration 04/16/22 Four Impairment decreased balance Short Term Goal (STG) Pt will score 19 or higher on Tinetti. 11/23/21 - GOAL MET. STG Duration 5 weeks - 11/09/21 GOAL MET Retirement Goal (LTG) Pt will score within age- matched norms on Dynamic Gait Index as a measure of reduced falls risk. 02/16: 06/09 LTG Duration 04/16/22 Three Impairment BLE strength Short Term Goal (STG) Pt will rise from a 21 tall surface without use of hands 11/21/21: requires use of BUE to come to standing, elevated black table, not measurered. 11/23/21 - Pt can rise from 20 mat without use of hands 4 times. STG Duration GOAL MET Retirement Goal (LTG) Pt will complete 5 Time Sit to Stand from a standard height chair without use of hands in 15 seconds or less as a measure of improved BLE strength and power. LTG Duration 10 weeks - 02/16: partiall met 19 seconds Two Impairment needs assistive device, gait speed Short Term Goal (STG) Pt will walk 1100 feet on 6MWT with SPC or LRAD as a measure of improved efficiency in gait. 11/23/21 - Pt ambulates 633 feet in six min with FWW 02/16: 410 with one seated rest break due to left knee pain 03/28/22: 546 ft w/ SPC no pain but tiring, donned L ankle hinge AFO bracing. STG Duration 03/16/22 progressing 03/28/22 Retirement Goal (LTG) Pt will walk 1200 feet or greater on 6MWT with SPC or no AD as a measure of improved gait speed for safe community ambulation. LTG Duration 04/16/22 One Impairment lacks HEP Short Term Goal (STG) Pt will be instructed in HEP for BLE strength and ROM within hip precautions 11/21/21: progressing: side clam w/ pillow, bridge w/ TB, STS with band, LAQ, band walk, heel raises, seated hip abd TB . STG Duration 5 weeks - 11/09/21 (progressing : 11/21/21) Progress Towards Goals Progress Towards Goals Progressing Toward Goals Progress Comments Pt improved 6MWT by 146 ft. Assessment Summary Assessment Pt improved neutral L ankle stability and less Valgus cave reported with new ankle bracing today, wearing up to 1 .5 hrs at time. Pt ableto complete step ups with L HR on 4step today not needing 2nd UE support. Physical Therapy Plan Frequency and Duration Frequency of Treatment 2x/Week Plan of Care Start Date 02/16/22 Plan of Care End Date 04/18/22 Therapeutic Interventions Therapeutic Interventions Balance Training,Gait Training ,Home Exercise Program,Manual Therapy,Neuromuscular Re- education,Self-Care/Home Management,Soft Tissue Mobilization,Therapeutic Activities,Therapeutic Exercises Modalities Cold Pack/Ice Massage,Hot Packs Other Referrals/Consults Referrals/Consults Recommended 03/28/22: arrived with L ankle hinge AFO, wearing up to 1.5 hrs at this time, needs assist don for her. Next Visit Focus/Plan Next Note Type Treatment Note Next Visit Plan Continue shuttle recovery. SLS ; gait training w/ SPC. Continue hip abd and adductor strengthening. POC: Progress strength and balance as able. Continue gait training with SPC.
--- NOTE | 2022-04-04 14:06 | PT.OTN ---
Current Diagnoses Difficulty in walking, not elsewhere classified (04/04/22) Other symptoms and signs involving the musculoskeletal system (04/04/22) Presence of right artificial hip joint (04/04/22) Physical Therapy Treatment Note PT-OP-A Visit Information Start: 10/04/21 16:21 Freq: Status: Active Protocol: Document 04/04/22 13:02 AMB (Rec: 04/04/22 14:06 AMB [id number]) Out-Patient Physical Therapy Visit Information Visit Information Visit Type Treatment Note Visit Start Time 13:52 Visit Stop Time 14:30 Total Visit Minutes 38 Visit Number 27 Number of BLOWER INSULATOR Visits 3 PT-OP-B Current Condition Start: 10/04/21 16:21 Freq: Status: Active Protocol: Document 10/05/21 15:15 AW (Rec: 10/05/21 13:25 AW [id number]) Current Condition History of Current Condition Onset Date July 2021 Current Complaints decreased strength and balance s/p R JOHN posterior approach History of Current Condition Chayo had R posterior hip replacement >2 months ago, went home with home health. She had a good experience with home health and is having no significant pain. She now walks with 4WW nearly 100% of the time and can walk at least 1000 feet in <10 minutes. She does best with good ankle support. She had at least three bad falls before surgery which makes her hesitant to walk without a walker. 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 Prior Treatments and Tests Previous PT for back, hip, and knee pain Treatment Goals Patient/Caregiver Goals Pt would like to walk without assistive device. Thinks she needs to unlearn gait compensations. Current Functional Impairments (Reported) Functional Limitations- Other Difficulty walking without 4WW . Uses 4WW to be able to transport objects while cooking or doing other tasks. Personal Factors Other Personal Factors That May Effect Ovarian CA, breast CA, Therapy/Recovery hypertension, BMI 39.5 PT-OP-C Subjective Start: 10/04/21 16:21 Freq: Status: Active Protocol: Document 04/04/22 13:02 AMB (Rec: 04/04/22 14:06 AMB [id number]) OP-PT Subjective Patient Comments Patient Comments Pt not wearing AFO at this visit, is wearing an ankle weight on L ankle, hoping that this will improve her strengthening. PT-OP-D Balance Start: 10/04/21 16:21 Freq: Status: Active Protocol: Document 10/05/21 15:15 AW (Rec: 10/08/21 16:40 AW [id number]) Tinetti Balance Assessment Sitting Balance Sitting Balance Steady, safe Arising from Chair Attempts to Arise Able, requires >1 attempt Standing Balance Immediate Standing Balance Steady w/o support Standing Balance Steady, wide stance Nudged Response Staggers, catches self Standing with Eyes Closed Unsteady Turning Step Pattern Turning 360 Degrees Continuous steps Stability Turning 360 Degrees Unsteady, grabs/staggers Sitting Down Sitting Down Uses arms or unsteady Gait and Step Initiation of Gait No hesitancy Right Foot Step Length Does not pass stance ft. Right Foot Step Height Completely clears floor Left Foot Step Length Does not pass stance foot Left Foot Step Height Completely clears floor Step Description Step Symmetry Step length appears equal Step Continuity Steps appear continuous Gait Description Path Description Mild/moderate deviation Trunk Description Marked sway or uses aide Walking Stance Heels together Scoring and Interpretation Tinetti Composite Score (points) 15 Interpretation of Scores High risk for falls(< 19) Tinetti Impairment Rating from Composite 40 to <60% Impaired (Score 12- Score 16) PT-OP-E Functional Tests Start: 10/04/21 16:21 Freq: Status: Active Protocol: Document 10/05/21 15:15 AW (Rec: 10/08/21 16:40 AW [id number]) Functional Tests 2 Minute Walk Test Distance 190 feet in 101 seconds Device Used 4WW Comments average gait speed 0.57 m/s PT-OP-F Manual Assessment Start: 10/04/21 16:21 Freq: Status: Active Protocol: Document 10/05/21 15:15 AW (Rec: 10/08/21 16:41 AW [id number]) Manual Assessments Soft Tissue Assessment Soft Tissue Mobility Assessment R posterior JOHN scar with fair mobility, some evidence of adhesion. PT-OP-G Mobility & Gait Start: 10/04/21 16:21 Freq: Status: Active Protocol: Document 10/05/21 15:15 AW (Rec: 10/08/21 16:40 AW [id number]) OP Mobility Evaluation Transfers Sit to Stand Requires use of UE to stand from plinth at 23 height. OP Gait Assessment Gait Gait Assistance Required: Standby Assistance Distance (Feet) 190 Assistive Devices Assistive Device 4 Wheeled Walker Orthotic/Prosthetic Devices or Brace: No Gait Deviations General Gait Pattern Antalgic,Decreased Stride Length,Decreased Feet Clearance,Flexed Trunk,Lateral Trunk Lean Comments Gait Comments Gait notable for leftward lean and decreased right foot clearance. Bilateral knee valgus apparent with L more affected than R Stair Climbing Evaluation Evaluation Level of Assist On Stairs Standby Assistance Devices Stair Climbing Assistive Devices Left Railing,Right Railing Technique/Endurance Stair Climbing Direction Ascend and Descend Stair Climbing Technique Step to Step PT-OP-K Range of Motion Start: 10/04/21 16:21 Freq: Status: Active Protocol: Document 10/05/21 15:15 AW (Rec: 10/08/21 16:51 AW [id number]) Hip Goniometric Range of Motion Hip Right Hip ROM WFL Yes Testing Position Supine Comments No restriction within precautions. End range flexion and IR not tested. PT-OP-M Strength Start: 10/04/21 16:21 Freq: Status: Active Protocol: Document 10/05/21 15:15 AW (Rec: 10/08/21 16:51 AW [id number]) Hip Strength Hip Manual Muscle Testing Left Flexion (L2) 4 Good Extension (S1) 3+ Fair+ Abduction 4 Good Right Flexion (L2) 4- Good- Extension (S1) 3+ Fair+ Abduction 4- Good- Knee Strength Knee Manual Muscle Testing Left Flexion (S2) 4+ Good+ Extension (L3) 4+ Good+ Comments Pain with all resisted movement on the left knee. Right Flexion (S2) 4 Good Extension (L3) 4+ Good+ Ankle/Foot Strength Ankle and Foot Manual Muscle Testing bilateral Dorsiflexion (L4) 4+ Good+ Plantarflexion (S1) 4 Good PT-OP-Q Treatments Start: 10/04/21 16:21 Freq: Status: Active Protocol: Document 04/04/22 13:02 AMB (Rec: 04/04/22 14:06 AMB [id number]) Gym Equipment Shuttle Recovery Unilateral Squats Details tactile/ VC knee with toes (L knee ER/ABD align) Resistance 37# Shuttle Recovery Platform Stable Reps/Time 2x20 each LE Bilateral Squats Resistance 50# Shuttle Recovery Platform Stable Reps/Time 2x20 Therapeutic Exercises Standing Exercises band walk Standing Exercise Name reviewed: lat stepping Side bilateral Equipment Used 2 HR Reps/Minutes 1 lap, 10 ft ea Comments cued toes fwd, hip ext ( popping L knee going L) Other Exercises sit to stand Other Exercise Name sit to stand Equipment Used Mat table: 19 floor, 21 w/ blue foam under feet Reps/Minutes x6 reps total Comments uses little momentum, arms front-little L knee grind discomfort Gait Training Gait Activity SPC Description 6MWT Device Used SPC LUE Level of Assistance S Surface tile, carpet Treatment Focus knee alignment, hip abd and glut fac Comments L ankle 1# weight Neuro Re-Education Treatment Balance Activities SLS Details SLS Comments with UE support- improved tolerance when weightbearing through L UE. Focus on neutral pelvis PT-OP-R Modalities Start: 10/04/21 16:21 Freq: Status: Active Protocol: Document 02/20/22 14:37 NBM (Rec: 02/20/22 18:36 NBM [id number]) Hot Pack/Cold Pack Treatment Cold Pack Location L knee Patient Position Hooklying Treatment Duration (minutes) 10 Patient Tolerance Good Comments [place] and needs within reach PT-OP-T Assessment and Plan Start: 10/04/21 16:21 Freq: Status: Active Protocol: Document 04/04/22 13:02 AMB (Rec: 04/04/22 14:06 AMB [id number]) Physical Therapy Assessment Goals Five Impairment LEFS Mcfp Goal (LTG) Pt will score 60/80 or greater on LEFS to demonstrate improvement in daily function. LTG Duration 04/16/22 Four Impairment decreased balance Short Term Goal (STG) Pt will score 19 or higher on Tinetti. 11/23/21 - GOAL MET. STG Duration 5 weeks - 11/09/21 GOAL MET Finished Goods Planner Goal (LTG) Pt will score within age- matched norms on Dynamic Gait Index as a measure of reduced falls risk. 02/16: 06/09 LTG Duration 04/16/22 Three Impairment BLE strength Short Term Goal (STG) Pt will rise from a 21 tall surface without use of hands 11/21/21: requires use of BUE to come to standing, elevated black table, not measurered. 11/23/21 - Pt can rise from 20 mat without use of hands 4 times. STG Duration GOAL MET Finished Goods Planner Goal (LTG) Pt will complete 5 Time Sit to Stand from a standard height chair without use of hands in 15 seconds or less as a measure of improved BLE strength and power. LTG Duration 10 weeks - 02/16: partiall met 19 seconds Two Impairment needs assistive device, gait speed Short Term Goal (STG) Pt will walk 1100 feet on 6MWT with SPC or LRAD as a measure of improved efficiency in gait. 11/23/21 - Pt ambulates 633 feet in six min with FWW 02/16: 410 with one seated rest break due to left knee pain 03/28/22: 546 ft w/ SPC no pain but tiring, donned L ankle hinge AFO bracing. STG Duration 03/16/22 progressing 03/28/22 Mcfp Goal (LTG) Pt will walk 1200 feet or greater on 6MWT with SPC or no AD as a measure of improved gait speed for safe community ambulation. LTG Duration 04/16/22 One Impairment lacks HEP Short Term Goal (STG) Pt will be instructed in HEP for BLE strength and ROM within hip precautions 11/21/21: progressing: side clam w/ pillow, bridge w/ TB, STS with band, LAQ, band walk, heel raises, seated hip abd TB . STG Duration 5 weeks - 11/09/21 (progressing : 11/21/21) Assessment Summary Assessment Chayo continues to be challenged by single leg stance activities. Shoulder is limiting ability to weightbear through cane. Active abduction limited on the L shoulder. Physical Therapy Plan Next Visit Focus/Plan Next Note Type Treatment Note Next Visit Plan Continue shuttle recovery. SLS ; gait training w/ SPC. Continue hip abd and adductor strengthening. POC: Progress strength and balance as able. Continue gait training with SPC.
--- NOTE | 2022-04-12 17:12 | PT.OTN ---
Current Diagnoses Difficulty in walking, not elsewhere classified (04/12/22) Other symptoms and signs involving the musculoskeletal system (04/12/22) Presence of right artificial hip joint (04/12/22) Physical Therapy Treatment Note PT-OP-A Visit Information Start: 10/04/21 16:21 Freq: Status: Active Protocol: Document 04/12/22 14:14 AW (Rec: 04/12/22 17:12 AW [id number]) Out-Patient Physical Therapy Visit Information Visit Information Visit Type Progress Note Visit Start Time 16:00 Visit Stop Time 16:45 Total Visit Minutes 45 Visit Number 28 Number of FLATWORK IRONER Visits 0 Precautions Precautions posterior R JOHN 07/28/21 PT-OP-B Current Condition Start: 10/04/21 16:21 Freq: Status: Active Protocol: Document 10/05/21 15:15 AW (Rec: 10/05/21 13:25 AW [id number]) Current Condition History of Current Condition Onset Date July 2021 Current Complaints decreased strength and balance s/p R JOHN posterior approach History of Current Condition Chayo had R posterior hip replacement >2 months ago, went home with home health. She had a good experience with home health and is having no significant pain. She now walks with 4WW nearly 100% of the time and can walk at least 1000 feet in <10 minutes. She does best with good ankle support. She had at least three bad falls before surgery which makes her hesitant to walk without a walker. 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 Prior Treatments and Tests Previous PT for back, hip, and knee pain Treatment Goals Patient/Caregiver Goals Pt would like to walk without assistive device. Thinks she needs to unlearn gait compensations. Current Functional Impairments (Reported) Functional Limitations- Other Difficulty walking without 4WW . Uses 4WW to be able to transport objects while cooking or doing other tasks. Personal Factors Other Personal Factors That May Effect Ovarian CA, breast CA, Therapy/Recovery hypertension, BMI 39.5 PT-OP-C Subjective Start: 10/04/21 16:21 Freq: Status: Active Protocol: Document 04/12/22 14:14 AW (Rec: 04/12/22 17:12 AW [id number]) OP-PT Subjective Patient Comments Patient Comments Just walked from PT to x-ray and back. Feels good. Has taken back her grocery shopping responsibilities and is feeling more confident making shopping trips on her own. Wearing AFO about 3 hours per day and thinks it helps her knee alignment. PT-OP-D Balance Start: 10/04/21 16:21 Freq: Status: Active Protocol: Document 10/05/21 15:15 AW (Rec: 10/08/21 16:40 AW [id number]) Tinetti Balance Assessment Sitting Balance Sitting Balance Steady, safe Arising from Chair Attempts to Arise Able, requires >1 attempt Standing Balance Immediate Standing Balance Steady w/o support Standing Balance Steady, wide stance Nudged Response Staggers, catches self Standing with Eyes Closed Unsteady Turning Step Pattern Turning 360 Degrees Continuous steps Stability Turning 360 Degrees Unsteady, grabs/staggers Sitting Down Sitting Down Uses arms or unsteady Gait and Step Initiation of Gait No hesitancy Right Foot Step Length Does not pass stance ft. Right Foot Step Height Completely clears floor Left Foot Step Length Does not pass stance foot Left Foot Step Height Completely clears floor Step Description Step Symmetry Step length appears equal Step Continuity Steps appear continuous Gait Description Path Description Mild/moderate deviation Trunk Description Marked sway or uses aide Walking Stance Heels together Scoring and Interpretation Tinetti Composite Score (points) 15 Interpretation of Scores High risk for falls(< 19) Tinetti Impairment Rating from Composite 40 to <60% Impaired (Score 12- Score 16) PT-OP-E Functional Tests Start: 10/04/21 16:21 Freq: Status: Active Protocol: Document 10/05/21 15:15 AW (Rec: 10/08/21 16:40 AW [id number]) Functional Tests 2 Minute Walk Test Distance 190 feet in 101 seconds Device Used 4WW Comments average gait speed 0.57 m/s PT-OP-F Manual Assessment Start: 10/04/21 16:21 Freq: Status: Active Protocol: Document 10/05/21 15:15 AW (Rec: 10/08/21 16:41 AW [id number]) Manual Assessments Soft Tissue Assessment Soft Tissue Mobility Assessment R posterior JOHN scar with fair mobility, some evidence of adhesion. PT-OP-G Mobility & Gait Start: 10/04/21 16:21 Freq: Status: Active Protocol: Document 10/05/21 15:15 AW (Rec: 10/08/21 16:40 AW [id number]) OP Mobility Evaluation Transfers Sit to Stand Requires use of UE to stand from plinth at 23 height. OP Gait Assessment Gait Gait Assistance Required: Standby Assistance Distance (Feet) 190 Assistive Devices Assistive Device 4 Wheeled Walker Orthotic/Prosthetic Devices or Brace: No Gait Deviations General Gait Pattern Antalgic,Decreased Stride Length,Decreased Feet Clearance,Flexed Trunk,Lateral Trunk Lean Comments Gait Comments Gait notable for leftward lean and decreased right foot clearance. Bilateral knee valgus apparent with L more affected than R Stair Climbing Evaluation Evaluation Level of Assist On Stairs Standby Assistance Devices Stair Climbing Assistive Devices Left Railing,Right Railing Technique/Endurance Stair Climbing Direction Ascend and Descend Stair Climbing Technique Step to Step PT-OP-K Range of Motion Start: 10/04/21 16:21 Freq: Status: Active Protocol: Document 10/05/21 15:15 AW (Rec: 10/08/21 16:51 AW [id number]) Hip Goniometric Range of Motion Hip Right Hip ROM WFL Yes Testing Position Supine Comments No restriction within precautions. End range flexion and IR not tested. PT-OP-M Strength Start: 10/04/21 16:21 Freq: Status: Active Protocol: Document 10/05/21 15:15 AW (Rec: 10/08/21 16:51 AW [id number]) Hip Strength Hip Manual Muscle Testing Left Flexion (L2) 4 Good Extension (S1) 3+ Fair+ Abduction 4 Good Right Flexion (L2) 4- Good- Extension (S1) 3+ Fair+ Abduction 4- Good- Knee Strength Knee Manual Muscle Testing Left Flexion (S2) 4+ Good+ Extension (L3) 4+ Good+ Comments Pain with all resisted movement on the left knee. Right Flexion (S2) 4 Good Extension (L3) 4+ Good+ Ankle/Foot Strength Ankle and Foot Manual Muscle Testing bilateral Dorsiflexion (L4) 4+ Good+ Plantarflexion (S1) 4 Good PT-OP-Q Treatments Start: 10/04/21 16:21 Freq: Status: Active Protocol: Document 04/12/22 14:14 AW (Rec: 04/12/22 17:12 AW [id number]) Gym Equipment Shuttle Recovery Unilateral Squats Details tactile/ VC knee with toes (L knee ER/ABD align) Resistance 37# Shuttle Recovery Platform Stable Reps/Time x20 RLE; x 8 LLE Bilateral Squats Resistance 50# Shuttle Recovery Platform Stable Reps/Time 2x20 Shuttle Balance red clips Details WBOS, stagger Comments - wt shift f/b - stride stance Therapeutic Exercises Other Exercises sit to stand Other Exercise Name sit to stand Equipment Used Mat table: 19 Reps/Minutes 5 reps/17.7 sec; 17 sec Comments light touch on thighs for descent Gait Training Gait Activity Stairs Description 4 stairs Device Used B rails Level of Assistance SBA Distance/Duration 6 steps x 3 Comments alternating pattern (most comfortable with ascent) SPC Description 6MWT Device Used SPC LUE Level of Assistance S Surface tile, carpet Treatment Focus knee alignment, hip abd and glut fac Comments no AFO, no weight Neuro Re-Education Treatment Balance Activities SLS Details SLS Comments with UE support- improved tolerance when weightbearing through L UE. Focus on neutral pelvis Self-Care/Home Management Treatment Education Other Education Educated pt on importance of using AFO for longer periods of activity throughout the day to improve alignment. Pt asked about using ankle weights and PT advised using weights for specific exercise and AFO for regular activity. PT-OP-R Modalities Start: 10/04/21 16:21 Freq: Status: Active Protocol: Document 02/20/22 14:37 NBM (Rec: 02/20/22 18:36 NBM [id number]) Hot Pack/Cold Pack Treatment Cold Pack Location L knee Patient Position Hooklying Treatment Duration (minutes) 10 Patient Tolerance Good Comments [place] and needs within reach PT-OP-T Assessment and Plan Start: 10/04/21 16:21 Freq: Status: Active Protocol: Document 04/12/22 14:14 AW (Rec: 04/12/22 17:12 AW [id number]) Physical Therapy Assessment Goals Five Impairment LEFS Fdc Goal (LTG) Pt will score 60/80 or greater on LEFS to demonstrate improvement in daily function. LTG Duration 06/18/22 Four Impairment decreased balance Short Term Goal (STG) Pt will score 19 or higher on Tinetti. 11/23/21 - GOAL MET. STG Duration 5 weeks - 11/09/21 GOAL MET Fdc Goal (LTG) Pt will score within age- matched norms on Dynamic Gait Index as a measure of reduced falls risk. 06/09 NEW GOAL: on DGI LTG Duration 06/18/22 Three Impairment BLE strength Short Term Goal (STG) Pt will rise from a 21 tall surface without use of hands 11/21/21: requires use of BUE to come to standing, elevated black table, not measurered. 11/23/21 - Pt can rise from 20 mat without use of hands 4 times. STG Duration GOAL MET Fdc Goal (LTG) Pt will complete 5 Time Sit to Stand from a standard height chair without use of hands in 15 seconds or less as a measure of improved BLE strength and power. 04/12 - 20 surface - 17.7 seconds, 17 seconds LTG Duration 06/18/22 Two Impairment needs assistive device, gait speed Fdc Goal (LTG) Pt will walk 900 feet on 6MWT with SPC or LRAD as a measure of improved efficiency in gait . 11/23/21 - Pt ambulates 633 feet in six min with FWW 02/16: 410 with one seated rest break due to left knee pain 03/28/22: 546 ft w/ SPC no pain but tiring, donned L ankle hinge AFO bracing. LTG Duration 06/18/22 One Impairment lacks HEP Short Term Goal (STG) Pt will be instructed in HEP for BLE strength and ROM within hip precautions 11/21/21: progressing: side clam w/ pillow, bridge w/ TB, STS with band, LAQ, band walk, heel raises, seated hip abd TB . STG Duration 5 weeks - 11/09/21 (progressing : 11/21/21) Progress Towards Goals Progress Towards Goals Progressing Toward Goals Progress Comments Chayo has improved her gait endurance but gait quality continues to lag and is most significantly impacted by LLE alignment. New AFO has been helpful but pt is only wearing it ~3 hours per day. Chayo should benefit from continued therapy to progress normalized gait pattern and continue to improve strength. Assessment Summary Assessment Chayo got her shoulder x-rayed today and will have an MRI. Due to history of avascular necrosis, PT will await imaging results and consult with referring provider to determine plan moving forward. At this time, plan to continue working on LE strength and gait. Reassessed and adjusted balance and gait goals today for more realistic progression. Physical Therapy Plan Frequency and Duration Frequency of Treatment 2x/Week Plan of Care Start Date 04/18/22 Plan of Care End Date 06/18/22 Therapeutic Interventions Therapeutic Interventions Balance Training,Gait Training ,Home Exercise Program,Manual Therapy,Neuromuscular Re- education,Self-Care/Home Management,Soft Tissue Mobilization,Therapeutic Activities,Therapeutic Exercises Modalities Cold Pack/Ice Massage,Hot Packs Next Visit Focus/Plan Next Note Type Treatment Note Next Visit Plan Continue shuttle recovery. SLS ; gait training w/ SPC. Continue hip abd and adductor strengthening. POC: Progress strength and balance as able. Continue gait training with SPC.
--- NOTE | 2022-04-12 17:13 | PT.OPPOC ---
Physical, Occupational & Speech Therapy At [facility] Current Diagnoses Difficulty in walking, not elsewhere classified (04/12/22) Other symptoms and signs involving the musculoskeletal system (04/12/22) Presence of right artificial hip joint (04/12/22) Visit Care Team Role Provider Type ENEIDA Bradley Attending Provider Advanced Sales Trainer Family Provider Primary Care Provider Referring Provider Specialty: [facility] Practice Address: [address] [place] [address], [facility] Email: [email or web address] Plan Of Care PT-OP-T Assessment and Plan Start: 10/04/21 16:21 Freq: Status: Active Protocol: Document 04/12/22 14:14 AW (Rec: 04/12/22 17:12 AW [id number]) Physical Therapy Assessment Goals Five Impairment LEFS [employer] Librarian Goal (LTG) Pt will score 60/80 or greater on LEFS to demonstrate improvement in daily function. LTG Duration 06/18/22 Four Impairment decreased balance Short Term Goal (STG) Pt will score 19 or higher on Tinetti. 11/23/21 - GOAL MET. STG Duration 5 weeks - 11/09/21 GOAL MET [employer] Librarian Goal (LTG) Pt will score within age- matched norms on Dynamic Gait Index as a measure of reduced falls risk. 02/16: 06/09 NEW GOAL: on DGI LTG Duration 06/18/22 Three Impairment BLE strength Short Term Goal (STG) Pt will rise from a 21 tall surface without use of hands 11/21/21: requires use of BUE to come to standing, elevated black table, not measurered. 11/23/21 - Pt can rise from 20 mat without use of hands 4 times. STG Duration GOAL MET Retirement Goal (LTG) Pt will complete 5 Time Sit to Stand from a standard height chair without use of hands in 15 seconds or less as a measure of improved BLE strength and power. 04/12 surface - 17.7 seconds, 17 seconds LTG Duration 06/18/22 Two Impairment needs assistive device, gait speed Retirement Goal (LTG) Pt will walk 900 feet on 6MWT with SPC or LRAD as a measure of improved efficiency in gait . 11/23/21 - Pt ambulates 633 feet in six min with FWW 02/16: 410 with one seated rest break due to left knee pain 03/28/22: 546 ft w/ SPC no pain but tiring, donned L ankle hinge AFO bracing. LTG Duration 06/18/22 One Impairment lacks HEP Short Term Goal (STG) Pt will be instructed in HEP for BLE strength and ROM within hip precautions 11/21/21: progressing: side clam w/ pillow, bridge w/ TB, STS with band, LAQ, band walk, heel raises, seated hip abd TB . STG Duration 5 weeks - 11/09/21 (progressing : 11/21/21) Progress Towards Goals Progress Towards Goals Progressing Toward Goals Progress Comments Chayo has improved her gait endurance but gait quality continues to lag and is most significantly impacted by LLE alignment. New AFO has been helpful but pt is only wearing it ~3 hours per day. Chayo should benefit from continued therapy to progress normalized gait pattern and continue to improve strength. Assessment Summary Assessment Chayo got her shoulder x-rayed today and will have an MRI. Due to history of avascular necrosis, PT will await imaging results and consult with referring provider to determine plan moving forward. At this time, plan to continue working on LE strength and gait. Reassessed and adjusted balance and gait goals today for more realistic progression. Physical Therapy Plan Frequency and Duration Frequency of Treatment 2x/Week Plan of Care Start Date 04/18/22 Plan of Care End Date 06/18/22 Therapeutic Interventions Therapeutic Interventions Balance Training,Gait Training ,Home Exercise Program,Manual Therapy,Neuromuscular Re- education,Self-Care/Home Management,Soft Tissue Mobilization,Therapeutic Activities,Therapeutic Exercises Modalities Cold Pack/Ice Massage,Hot Packs Next Visit Focus/Plan Next Note Type Treatment Note Next Visit Plan Continue shuttle recovery. SLS ; gait training w/ SPC. Continue hip abd and adductor strengthening. POC: Progress strength and balance as able. Continue gait training with SPC. Plan of Care Dates Plan of Care Start Date 04/18/22 Plan of Care End Date 06/18/22 Electronically Signed by: Kim Jerome, PT 04/12/22 [id number] If you are in agreement with this Plan of Care, please return a signed and dated copy. I have reviewed this Plan of Care and certify that the skilled therapy services above are required to meet the patient?s needs. Physician Signature Date Printed Name and Credentials Clinical Instructor Signature Printed Name and Credentials
--- NOTE | 2022-04-18 14:45 | PT-OP ANOTE ---
Pt did not show scheduled appointment today. Called and spoke with pt who states she called before noon to cancel due to illness today.
--- NOTE | 2022-04-25 15:17 | PT.OTN ---
Current Diagnoses Difficulty in walking, not elsewhere classified (04/25/22) Other symptoms and signs involving the musculoskeletal system (04/25/22) Presence of right artificial hip joint (04/25/22) Physical Therapy Treatment Note PT-OP-A Visit Information Start: 10/04/21 16:21 Freq: Status: Active Protocol: Document 04/25/22 13:02 AW (Rec: 04/25/22 15:16 AW [id number]) Out-Patient Physical Therapy Visit Information Visit Information Visit Type Treatment Note Visit Start Time 14:30 Visit Stop Time 15:10 Total Visit Minutes 40 Visit Number 29 Number of HUMAN RESOURCES ADVISOR Visits 0 Precautions Precautions posterior R JOHN 07/28/21 PT-OP-B Current Condition Start: 10/04/21 16:21 Freq: Status: Active Protocol: Document 10/05/21 15:15 AW (Rec: 10/05/21 13:25 AW [id number]) Current Condition History of Current Condition Onset Date July 2021 Current Complaints decreased strength and balance s/p R JOHN posterior approach History of Current Condition Chayo had R posterior hip replacement >2 months ago, went home with home health. She had a good experience with home health and is having no significant pain. She now walks with 4WW nearly 100% of the time and can walk at least 1000 feet in <10 minutes. She does best with good ankle support. She had at least three bad falls before surgery which makes her hesitant to walk without a walker. 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 Prior Treatments and Tests Previous PT for back, hip, and knee pain Treatment Goals Patient/Caregiver Goals Pt would like to walk without assistive device. Thinks she needs to unlearn gait compensations. Current Functional Impairments (Reported) Functional Limitations- Other Difficulty walking without 4WW . Uses 4WW to be able to transport objects while cooking or doing other tasks. Personal Factors Other Personal Factors That May Effect Ovarian CA, breast CA, Therapy/Recovery hypertension, BMI 39.5 PT-OP-C Subjective Start: 10/04/21 16:21 Freq: Status: Active Protocol: Document 04/25/22 13:02 AW (Rec: 04/25/22 15:16 AW [id number]) OP-PT Subjective Patient Comments Patient Comments Had shoulder MRI which showed rotator cuff and labral damage but no necrosis. Plans to see Dr. Jacobs at ortho. Has been wearing AFO a lot during the day and notices improvement in LE swelling. PT-OP-D Balance Start: 10/04/21 16:21 Freq: Status: Active Protocol: Document 10/05/21 15:15 AW (Rec: 10/08/21 16:40 AW [id number]) Tinetti Balance Assessment Sitting Balance Sitting Balance Steady, safe Arising from Chair Attempts to Arise Able, requires >1 attempt Standing Balance Immediate Standing Balance Steady w/o support Standing Balance Steady, wide stance Nudged Response Staggers, catches self Standing with Eyes Closed Unsteady Turning Step Pattern Turning 360 Degrees Continuous steps Stability Turning 360 Degrees Unsteady, grabs/staggers Sitting Down Sitting Down Uses arms or unsteady Gait and Step Initiation of Gait No hesitancy Right Foot Step Length Does not pass stance ft. Right Foot Step Height Completely clears floor Left Foot Step Length Does not pass stance foot Left Foot Step Height Completely clears floor Step Description Step Symmetry Step length appears equal Step Continuity Steps appear continuous Gait Description Path Description Mild/moderate deviation Trunk Description Marked sway or uses aide Walking Stance Heels together Scoring and Interpretation Tinetti Composite Score (points) 15 Interpretation of Scores High risk for falls(< 19) Tinetti Impairment Rating from Composite 40 to <60% Impaired (Score 12- Score 16) PT-OP-E Functional Tests Start: 10/04/21 16:21 Freq: Status: Active Protocol: Document 10/05/21 15:15 AW (Rec: 10/08/21 16:40 AW [id number]) Functional Tests 2 Minute Walk Test Distance 190 feet in 101 seconds Device Used 4WW Comments average gait speed 0.57 m/s PT-OP-F Manual Assessment Start: 10/04/21 16:21 Freq: Status: Active Protocol: Document 10/05/21 15:15 AW (Rec: 10/08/21 16:41 AW [id number]) Manual Assessments Soft Tissue Assessment Soft Tissue Mobility Assessment R posterior JOHN scar with fair mobility, some evidence of adhesion. PT-OP-G Mobility & Gait Start: 10/04/21 16:21 Freq: Status: Active Protocol: Document 10/05/21 15:15 AW (Rec: 10/08/21 16:40 AW [id number]) OP Mobility Evaluation Transfers Sit to Stand Requires use of UE to stand from plinth at 23 height. OP Gait Assessment Gait Gait Assistance Required: Standby Assistance Distance (Feet) 190 Assistive Devices Assistive Device 4 Wheeled Walker Orthotic/Prosthetic Devices or Brace: No Gait Deviations General Gait Pattern Antalgic,Decreased Stride Length,Decreased Feet Clearance,Flexed Trunk,Lateral Trunk Lean Comments Gait Comments Gait notable for leftward lean and decreased right foot clearance. Bilateral knee valgus apparent with L more affected than R Stair Climbing Evaluation Evaluation Level of Assist On Stairs Standby Assistance Devices Stair Climbing Assistive Devices Left Railing,Right Railing Technique/Endurance Stair Climbing Direction Ascend and Descend Stair Climbing Technique Step to Step PT-OP-K Range of Motion Start: 10/04/21 16:21 Freq: Status: Active Protocol: Document 10/05/21 15:15 AW (Rec: 10/08/21 16:51 AW [id number]) Hip Goniometric Range of Motion Hip Right Hip ROM WFL Yes Testing Position Supine Comments No restriction within precautions. End range flexion and IR not tested. PT-OP-M Strength Start: 10/04/21 16:21 Freq: Status: Active Protocol: Document 10/05/21 15:15 AW (Rec: 10/08/21 16:51 AW [id number]) Hip Strength Hip Manual Muscle Testing Left Flexion (L2) 4 Good Extension (S1) 3+ Fair+ Abduction 4 Good Right Flexion (L2) 4- Good- Extension (S1) 3+ Fair+ Abduction 4- Good- Knee Strength Knee Manual Muscle Testing Left Flexion (S2) 4+ Good+ Extension (L3) 4+ Good+ Comments Pain with all resisted movement on the left knee. Right Flexion (S2) 4 Good Extension (L3) 4+ Good+ Ankle/Foot Strength Ankle and Foot Manual Muscle Testing bilateral Dorsiflexion (L4) 4+ Good+ Plantarflexion (S1) 4 Good PT-OP-Q Treatments Start: 10/04/21 16:21 Freq: Status: Active Protocol: Document 04/25/22 13:02 AW (Rec: 04/25/22 15:16 AW [id number]) Cardio Equipment Recumbent Stepper (Sci-Fit) Duration (Minutes) 7 Resistance 2 Seat Position 8 Gym Equipment Shuttle Recovery Unilateral Squats Details tactile/ VC knee with toes (L knee ER/ABD align) Resistance 37# R; 25#L Shuttle Recovery Platform Stable Reps/Time x20 RLE; x 12 LLE Bilateral Squats Resistance 50# Shuttle Recovery Platform Stable Reps/Time 2x20 Shuttle Balance red clips Details WBOS, stagger Comments - wt shift f/b Pt reported increased L knee pain; dc'ed Therapeutic Exercises Supine Exercises bridge Supine Exercise Name HEP review Reps/Minutes x10 3s hold Comments good hip abd self corrections SLR Supine Exercise Name SLR Side left Reps/Minutes x12 Comments HEP review Standing Exercises band walk Standing Exercise Name reviewed: lat stepping Side bilateral Equipment Used 2 HR; TB2 Reps/Minutes 2 lap, 10 ft ea Comments improved alignment and less pain in brace Hip extension Standing Exercise Name Hip extension Side bilateral Resistance Lv 2 Other Exercises sit to stand Other Exercise Name sit to stand Equipment Used Mat table: 19 Reps/Minutes 10 reps total Comments light touch on thighs for descent PT-OP-R Modalities Start: 10/04/21 16:21 Freq: Status: Active Protocol: Document 02/20/22 14:37 NBM (Rec: 02/20/22 18:36 NBM [id number]) Hot Pack/Cold Pack Treatment Cold Pack Location L knee Patient Position Hooklying Treatment Duration (minutes) 10 Patient Tolerance Good Comments [place] and needs within reach PT-OP-T Assessment and Plan Start: 10/04/21 16:21 Freq: Status: Active Protocol: Document 04/25/22 13:02 AW (Rec: 04/25/22 15:16 AW [id number]) Physical Therapy Assessment Goals Five Impairment LEFS Hydraulic Strainer Operator Goal (LTG) Pt will score 60/80 or greater on LEFS to demonstrate improvement in daily function. LTG Duration 06/18/22 Four Impairment decreased balance Short Term Goal (STG) Pt will score 19 or higher on Tinetti. 11/23/21 - GOAL MET. STG Duration 5 weeks - 11/09/21 GOAL MET Hydraulic Strainer Operator Goal (LTG) Pt will score within age- matched norms on Dynamic Gait Index as a measure of reduced falls risk. 06/09 NEW GOAL: on DGI LTG Duration 06/18/22 Three Impairment BLE strength Short Term Goal (STG) Pt will rise from a 21 tall surface without use of hands 11/21/21: requires use of BUE to come to standing, elevated black table, not measurered. 11/23/21 - Pt can rise from 20 mat without use of hands 4 times. STG Duration GOAL MET Hydraulic Strainer Operator Goal (LTG) Pt will complete 5 Time Sit to Stand from a standard height chair without use of hands in 15 seconds or less as a measure of improved BLE strength and power. 04/12 - 20 surface - 17.7 seconds, 17 seconds LTG Duration 06/18/22 Two Impairment needs assistive device, gait speed Intermediate Goal (LTG) Pt will walk 900 feet on 6MWT with SPC or LRAD as a measure of improved efficiency in gait . 11/23/21 - Pt ambulates 633 feet in six min with FWW 02/16: 410 with one seated rest break due to left knee pain 03/28/22: 546 ft w/ SPC no pain but tiring, donned L ankle hinge AFO bracing. LTG Duration 06/18/22 One Impairment lacks HEP Short Term Goal (STG) Pt will be instructed in HEP for BLE strength and ROM within hip precautions 11/21/21: progressing: side clam w/ pillow, bridge w/ TB, STS with band, LAQ, band walk, heel raises, seated hip abd TB . STG Duration 5 weeks - 11/09/21 (progressing : 11/21/21) Assessment Summary Assessment Chayo shows improved LLE alignment in her brace. Her step lengths are longer and she has less lateral lean in gait. She managed all exercises today without increase in baseline pain. PT encouraged pt to consider discharge before end of year with likely change of focus to left shoulder. Physical Therapy Plan Frequency and Duration Frequency of Treatment 2x/Week Plan of Care Start Date 04/18/22 Plan of Care End Date 06/18/22 Therapeutic Interventions Therapeutic Interventions Balance Training,Gait Training ,Home Exercise Program,Manual Therapy,Neuromuscular Re- education,Self-Care/Home Management,Soft Tissue Mobilization,Therapeutic Activities,Therapeutic Exercises Modalities Cold Pack/Ice Massage,Hot Packs Next Visit Focus/Plan Next Note Type Treatment Note Next Visit Plan Continue shuttle recovery. SLS ; gait training w/ SPC. Continue hip abd and adductor strengthening. POC: Progress strength and balance as able. Continue gait training with SPC.
--- NOTE | 2022-05-02 14:37 | PT.OTN ---
Current Diagnoses Difficulty in walking, not elsewhere classified (05/02/22) Other symptoms and signs involving the musculoskeletal system (05/02/22) Presence of right artificial hip joint (05/02/22) Physical Therapy Treatment Note PT-OP-A Visit Information Start: 10/04/21 16:21 Freq: Status: Active Protocol: Document 05/02/22 13:02 AW (Rec: 05/02/22 14:37 AW [id number]) Out-Patient Physical Therapy Visit Information Visit Information Visit Type Treatment Note Visit Start Time 13:51 Visit Stop Time 14:30 Total Visit Minutes 39 Visit Number 30 Number of BONE DRIER Visits 0 Precautions Precautions posterior R JOHN 07/28/21 PT-OP-B Current Condition Start: 10/04/21 16:21 Freq: Status: Active Protocol: Document 10/05/21 15:15 AW (Rec: 10/05/21 13:25 AW [id number]) Current Condition History of Current Condition Onset Date July 2021 Current Complaints decreased strength and balance s/p R JOHN posterior approach History of Current Condition Chayo had R posterior hip replacement >2 months ago, went home with home health. She had a good experience with home health and is having no significant pain. She now walks with 4WW nearly 100% of the time and can walk at least 1000 feet in <10 minutes. She does best with good ankle support. She had at least three bad falls before surgery which makes her hesitant to walk without a walker. 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 Prior Treatments and Tests Previous PT for back, hip, and knee pain Treatment Goals Patient/Caregiver Goals Pt would like to walk without assistive device. Thinks she needs to unlearn gait compensations. Current Functional Impairments (Reported) Functional Limitations- Other Difficulty walking without 4WW . Uses 4WW to be able to transport objects while cooking or doing other tasks. Personal Factors Other Personal Factors That May Effect Ovarian CA, breast CA, Therapy/Recovery hypertension, BMI 39.5 PT-OP-C Subjective Start: 10/04/21 16:21 Freq: Status: Active Protocol: Document 05/02/22 13:02 AW (Rec: 05/02/22 14:37 AW [id number]) OP-PT Subjective Patient Comments Patient Comments Chayo will see ortho for her shoulder next Wednesday. AFO seems to be causing more achiness in the left knee. Can wear it for full days and does appreciate better alignment with the brace on. PT-OP-D Balance Start: 10/04/21 16:21 Freq: Status: Active Protocol: Document 10/05/21 15:15 AW (Rec: 10/08/21 16:40 AW [id number]) Tinetti Balance Assessment Sitting Balance Sitting Balance Steady, safe Arising from Chair Attempts to Arise Able, requires >1 attempt Standing Balance Immediate Standing Balance Steady w/o support Standing Balance Steady, wide stance Nudged Response Staggers, catches self Standing with Eyes Closed Unsteady Turning Step Pattern Turning 360 Degrees Continuous steps Stability Turning 360 Degrees Unsteady, grabs/staggers Sitting Down Sitting Down Uses arms or unsteady Gait and Step Initiation of Gait No hesitancy Right Foot Step Length Does not pass stance ft. Right Foot Step Height Completely clears floor Left Foot Step Length Does not pass stance foot Left Foot Step Height Completely clears floor Step Description Step Symmetry Step length appears equal Step Continuity Steps appear continuous Gait Description Path Description Mild/moderate deviation Trunk Description Marked sway or uses aide Walking Stance Heels together Scoring and Interpretation Tinetti Composite Score (points) 15 Interpretation of Scores High risk for falls(< 19) Tinetti Impairment Rating from Composite 40 to <60% Impaired (Score 12- Score 16) PT-OP-E Functional Tests Start: 10/04/21 16:21 Freq: Status: Active Protocol: Document 10/05/21 15:15 AW (Rec: 10/08/21 16:40 AW [id number]) Functional Tests 2 Minute Walk Test Distance 190 feet in 101 seconds Device Used 4WW Comments average gait speed 0.57 m/s PT-OP-F Manual Assessment Start: 10/04/21 16:21 Freq: Status: Active Protocol: Document 10/05/21 15:15 AW (Rec: 10/08/21 16:41 AW [id number]) Manual Assessments Soft Tissue Assessment Soft Tissue Mobility Assessment R posterior JOHN scar with fair mobility, some evidence of adhesion. PT-OP-G Mobility & Gait Start: 10/04/21 16:21 Freq: Status: Active Protocol: Document 10/05/21 15:15 AW (Rec: 10/08/21 16:40 AW [id number]) OP Mobility Evaluation Transfers Sit to Stand Requires use of UE to stand from plinth at 23 height. OP Gait Assessment Gait Gait Assistance Required: Standby Assistance Distance (Feet) 190 Assistive Devices Assistive Device 4 Wheeled Walker Orthotic/Prosthetic Devices or Brace: No Gait Deviations General Gait Pattern Antalgic,Decreased Stride Length,Decreased Feet Clearance,Flexed Trunk,Lateral Trunk Lean Comments Gait Comments Gait notable for leftward lean and decreased right foot clearance. Bilateral knee valgus apparent with L more affected than R Stair Climbing Evaluation Evaluation Level of Assist On Stairs Standby Assistance Devices Stair Climbing Assistive Devices Left Railing,Right Railing Technique/Endurance Stair Climbing Direction Ascend and Descend Stair Climbing Technique Step to Step PT-OP-K Range of Motion Start: 10/04/21 16:21 Freq: Status: Active Protocol: Document 10/05/21 15:15 AW (Rec: 10/08/21 16:51 AW [id number]) Hip Goniometric Range of Motion Hip Right Hip ROM WFL Yes Testing Position Supine Comments No restriction within precautions. End range flexion and IR not tested. PT-OP-M Strength Start: 10/04/21 16:21 Freq: Status: Active Protocol: Document 10/05/21 15:15 AW (Rec: 10/08/21 16:51 AW [id number]) Hip Strength Hip Manual Muscle Testing Left Flexion (L2) 4 Good Extension (S1) 3+ Fair+ Abduction 4 Good Right Flexion (L2) 4- Good- Extension (S1) 3+ Fair+ Abduction 4- Good- Knee Strength Knee Manual Muscle Testing Left Flexion (S2) 4+ Good+ Extension (L3) 4+ Good+ Comments Pain with all resisted movement on the left knee. Right Flexion (S2) 4 Good Extension (L3) 4+ Good+ Ankle/Foot Strength Ankle and Foot Manual Muscle Testing bilateral Dorsiflexion (L4) 4+ Good+ Plantarflexion (S1) 4 Good PT-OP-Q Treatments Start: 10/04/21 16:21 Freq: Status: Active Protocol: Document 05/02/22 13:02 AW (Rec: 05/02/22 14:37 AW [id number]) Cardio Equipment Recumbent Stepper (Sci-Fit) Duration (Minutes) 7 Resistance 2 Seat Position 8 Other 0.85 mi Gym Equipment Shuttle Recovery Unilateral Squats Details tactile/ VC knee with toes (L knee ER/ABD align) Resistance 37# Shuttle Recovery Platform Stable Reps/Time x20 RLE; x 12 LLE Bilateral Squats Resistance 62# Shuttle Recovery Platform Stable Reps/Time 2x20 Therapeutic Exercises Other Exercises sit to stand Other Exercise Name sit to stand Equipment Used mesh chair with 2 blue foam on top Reps/Minutes 5 reps x 2 Comments less UE support on thighs today Neuro Re-Education Treatment Balance Activities rocker board Details rocker board Comments A/P and M/L: good, slow control SLS Details SLS Comments modified with foam under opp foot. No need for UE support. Progressed to SLS with min contact // NBOS Details NBOS Surface Blue Foam Comments -EO -EC -head turns/nods PT-OP-R Modalities Start: 10/04/21 16:21 Freq: Status: Active Protocol: Document 02/20/22 14:37 NBM (Rec: 02/20/22 18:36 NBM [id number]) Hot Pack/Cold Pack Treatment Cold Pack Location L knee Patient Position Hooklying Treatment Duration (minutes) 10 Patient Tolerance Good Comments [place] and needs within reach PT-OP-T Assessment and Plan Start: 10/04/21 16:21 Freq: Status: Active Protocol: Document 05/02/22 13:02 AW (Rec: 05/02/22 14:37 AW [id number]) Physical Therapy Assessment Goals Five Impairment LEFS Design Cell Engineer Goal (LTG) Pt will score 60/80 or greater on LEFS to demonstrate improvement in daily function. LTG Duration 06/18/22 Four Impairment decreased balance Short Term Goal (STG) Pt will score 19 or higher on Tinetti. 11/23/21 - GOAL MET. STG Duration 5 weeks - 11/09/21 GOAL MET Assisted Goal (LTG) Pt will score within age- matched norms on Dynamic Gait Index as a measure of reduced falls risk. 06/09 NEW GOAL: on DGI LTG Duration 06/18/22 Three Impairment BLE strength Short Term Goal (STG) Pt will rise from a 21 tall surface without use of hands 11/21/21: requires use of BUE to come to standing, elevated black table, not measurered. 11/23/21 - Pt can rise from 20 mat without use of hands 4 times. STG Duration GOAL MET Assisted Goal (LTG) Pt will complete 5 Time Sit to Stand from a standard height chair without use of hands in 15 seconds or less as a measure of improved BLE strength and power. 04/12 surface - 17.7 seconds, 17 seconds LTG Duration 06/18/22 Two Impairment needs assistive device, gait speed Assisted Goal (LTG) Pt will walk 900 feet on 6MWT with SPC or LRAD as a measure of improved efficiency in gait . 11/23/21 - Pt ambulates 633 feet in six min with FWW 02/16: 410 with one seated rest break due to left knee pain 03/28/22: 546 ft w/ SPC no pain but tiring, donned L ankle hinge AFO bracing. LTG Duration 06/18/22 One Impairment lacks HEP Short Term Goal (STG) Pt will be instructed in HEP for BLE strength and ROM within hip precautions 11/21/21: progressing: side clam w/ pillow, bridge w/ TB, STS with band, LAQ, band walk, heel raises, seated hip abd TB . STG Duration 5 weeks - 11/09/21 (progressing : 11/21/21) Assessment Summary Assessment Balance and single leg stance are improved when Chayo wears her brace. She tolerated increase in leg press load today without increase in baseline pain. Pt will continue with weekly appointments to finish up this plan of care. She sees ortho next week to assess her left shoulder. Physical Therapy Plan Frequency and Duration Frequency of Treatment 2x/Week Plan of Care Start Date 04/18/22 Plan of Care End Date 06/18/22 Therapeutic Interventions Therapeutic Interventions Balance Training,Gait Training ,Home Exercise Program,Manual Therapy,Neuromuscular Re- education,Self-Care/Home Management,Soft Tissue Mobilization,Therapeutic Activities,Therapeutic Exercises Modalities Cold Pack/Ice Massage,Hot Packs Next Visit Focus/Plan Next Note Type Treatment Note Next Visit Plan Continue shuttle recovery. SLS ; gait training w/ SPC. Continue hip abd and adductor strengthening. POC: Progress strength and balance as able. Continue gait training with SPC.
--- NOTE | 2022-05-15 15:00 | PT.OTN ---
Current Diagnoses Difficulty in walking, not elsewhere classified (05/15/22) Other symptoms and signs involving the musculoskeletal system (05/15/22) Presence of right artificial hip joint (05/15/22) Physical Therapy Treatment Note PT-OP-A Visit Information Start: 10/04/21 16:21 Freq: Status: Active Protocol: Document 05/15/22 13:54 AMB (Rec: 05/15/22 14:32 AMB [id number]) Out-Patient Physical Therapy Visit Information Visit Information Visit Type Treatment Note Visit Start Time 13:45 Visit Stop Time 14:30 Total Visit Minutes 40 Visit Number 31 PT-OP-B Current Condition Start: 10/04/21 16:21 Freq: Status: Active Protocol: Document 10/05/21 15:15 AW (Rec: 10/05/21 13:25 AW [id number]) Current Condition History of Current Condition Onset Date July 2021 Current Complaints decreased strength and balance s/p R JOHN posterior approach History of Current Condition Chayo had R posterior hip replacement >2 months ago, went home with home health. She had a good experience with home health and is having no significant pain. She now walks with 4WW nearly 100% of the time and can walk at least 1000 feet in <10 minutes. She does best with good ankle support. She had at least three bad falls before surgery which makes her hesitant to walk without a walker. 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 Prior Treatments and Tests Previous PT for back, hip, and knee pain Treatment Goals Patient/Caregiver Goals Pt would like to walk without assistive device. Thinks she needs to unlearn gait compensations. Current Functional Impairments (Reported) Functional Limitations- Other Difficulty walking without 4WW . Uses 4WW to be able to transport objects while cooking or doing other tasks. Personal Factors Other Personal Factors That May Effect Ovarian CA, breast CA, Therapy/Recovery hypertension, BMI 39.5 PT-OP-C Subjective Start: 10/04/21 16:21 Freq: Status: Active Protocol: Document 05/15/22 13:54 AMB (Rec: 05/15/22 14:32 AMB [id number]) OP-PT Subjective Patient Comments Patient Comments Chayo comes in with a new referral for her shoulder. Wants to finish the last few visits of her hip before moving on to the shoulder. PT-OP-D Balance Start: 10/04/21 16:21 Freq: Status: Active Protocol: Document 10/05/21 15:15 AW (Rec: 10/08/21 16:40 AW [id number]) Tinetti Balance Assessment Sitting Balance Sitting Balance Steady, safe Arising from Chair Attempts to Arise Able, requires >1 attempt Standing Balance Immediate Standing Balance Steady w/o support Standing Balance Steady, wide stance Nudged Response Staggers, catches self Standing with Eyes Closed Unsteady Turning Step Pattern Turning 360 Degrees Continuous steps Stability Turning 360 Degrees Unsteady, grabs/staggers Sitting Down Sitting Down Uses arms or unsteady Gait and Step Initiation of Gait No hesitancy Right Foot Step Length Does not pass stance ft. Right Foot Step Height Completely clears floor Left Foot Step Length Does not pass stance foot Left Foot Step Height Completely clears floor Step Description Step Symmetry Step length appears equal Step Continuity Steps appear continuous Gait Description Path Description Mild/moderate deviation Trunk Description Marked sway or uses aide Walking Stance Heels together Scoring and Interpretation Tinetti Composite Score (points) 15 Interpretation of Scores High risk for falls(< 19) Tinetti Impairment Rating from Composite 40 to <60% Impaired (Score 12- Score 16) PT-OP-E Functional Tests Start: 10/04/21 16:21 Freq: Status: Active Protocol: Document 10/05/21 15:15 AW (Rec: 10/08/21 16:40 AW [id number]) Functional Tests 2 Minute Walk Test Distance 190 feet in 101 seconds Device Used 4WW Comments average gait speed 0.57 m/s PT-OP-F Manual Assessment Start: 10/04/21 16:21 Freq: Status: Active Protocol: Document 10/05/21 15:15 AW (Rec: 10/08/21 16:41 AW [id number]) Manual Assessments Soft Tissue Assessment Soft Tissue Mobility Assessment R posterior JOHN scar with fair mobility, some evidence of adhesion. PT-OP-G Mobility & Gait Start: 10/04/21 16:21 Freq: Status: Active Protocol: Document 10/05/21 15:15 AW (Rec: 10/08/21 16:40 AW [id number]) OP Mobility Evaluation Transfers Sit to Stand Requires use of UE to stand from plinth at 23 height. OP Gait Assessment Gait Gait Assistance Required: Standby Assistance Distance (Feet) 190 Assistive Devices Assistive Device 4 Wheeled Walker Orthotic/Prosthetic Devices or Brace: No Gait Deviations General Gait Pattern Antalgic,Decreased Stride Length,Decreased Feet Clearance,Flexed Trunk,Lateral Trunk Lean Comments Gait Comments Gait notable for leftward lean and decreased right foot clearance. Bilateral knee valgus apparent with L more affected than R Stair Climbing Evaluation Evaluation Level of Assist On Stairs Standby Assistance Devices Stair Climbing Assistive Devices Left Railing,Right Railing Technique/Endurance Stair Climbing Direction Ascend and Descend Stair Climbing Technique Step to Step PT-OP-K Range of Motion Start: 10/04/21 16:21 Freq: Status: Active Protocol: Document 10/05/21 15:15 AW (Rec: 10/08/21 16:51 AW [id number]) Hip Goniometric Range of Motion Hip Right Hip ROM WFL Yes Testing Position Supine Comments No restriction within precautions. End range flexion and IR not tested. PT-OP-M Strength Start: 10/04/21 16:21 Freq: Status: Active Protocol: Document 10/05/21 15:15 AW (Rec: 10/08/21 16:51 AW [id number]) Hip Strength Hip Manual Muscle Testing Left Flexion (L2) 4 Good Extension (S1) 3+ Fair+ Abduction 4 Good Right Flexion (L2) 4- Good- Extension (S1) 3+ Fair+ Abduction 4- Good- Knee Strength Knee Manual Muscle Testing Left Flexion (S2) 4+ Good+ Extension (L3) 4+ Good+ Comments Pain with all resisted movement on the left knee. Right Flexion (S2) 4 Good Extension (L3) 4+ Good+ Ankle/Foot Strength Ankle and Foot Manual Muscle Testing bilateral Dorsiflexion (L4) 4+ Good+ Plantarflexion (S1) 4 Good PT-OP-Q Treatments Start: 10/04/21 16:21 Freq: Status: Active Protocol: Document 05/15/22 13:54 AMB (Rec: 05/15/22 14:32 AMB [id number]) Cardio Equipment Recumbent Stepper (Sci-Fit) Duration (Minutes) 7 Resistance 2 Seat Position 8 Other 0.85 mi Gym Equipment Shuttle Recovery Unilateral Squats Details tactile/ VC knee with toes (L knee ER/ABD align) Resistance 37# Shuttle Recovery Platform Stable Reps/Time x20 RLE; x 12 LLE Bilateral Squats Resistance 62# Shuttle Recovery Platform Stable Reps/Time 2x20 Therapeutic Exercises Other Exercises sit to stand Other Exercise Name sit to stand Equipment Used mesh chair Reps/Minutes 5 reps Comments less UE support on thighs today Neuro Re-Education Treatment Balance Activities hurdles Details SPC and railing Comments 3 hurdles x 6 reps- challenging NBOS Details NBOS Surface Blue Foam Comments -EO -EC -head turns/nods PT-OP-R Modalities Start: 10/04/21 16:21 Freq: Status: Active Protocol: Document 02/20/22 14:37 NBM (Rec: 02/20/22 18:36 NBM [id number]) Hot Pack/Cold Pack Treatment Cold Pack Location L knee Patient Position Hooklying Treatment Duration (minutes) 10 Patient Tolerance Good Comments [place] and needs within reach PT-OP-T Assessment and Plan Start: 10/04/21 16:21 Freq: Status: Active Protocol: Document 05/15/22 13:54 AMB (Rec: 05/15/22 14:32 AMB [id number]) Physical Therapy Assessment Goals Five Impairment LEFS Securities Underwriter Goal (LTG) Pt will score 60/80 or greater on LEFS to demonstrate improvement in daily function. LTG Duration 06/18/22 Four Impairment decreased balance Short Term Goal (STG) Pt will score 19 or higher on Tinetti. 11/23/21 - GOAL MET. STG Duration 5 weeks - 11/09/21 GOAL MET Care Home Goal (LTG) Pt will score within age- matched norms on Dynamic Gait Index as a measure of reduced falls risk. 02/16: 06/09 NEW GOAL: on DGI LTG Duration 06/18/22 Three Impairment BLE strength Short Term Goal (STG) Pt will rise from a 21 tall surface without use of hands 11/21/21: requires use of BUE to come to standing, elevated black table, not measurered. 11/23/21 - Pt can rise from 20 mat without use of hands 4 times. STG Duration GOAL MET Care Home Goal (LTG) Pt will complete 5 Time Sit to Stand from a standard height chair without use of hands in 15 seconds or less as a measure of improved BLE strength and power. 04/12 - 20 surface - 17.7 seconds, 17 seconds LTG Duration 06/18/22 Two Impairment needs assistive device, gait speed Care Home Goal (LTG) Pt will walk 900 feet on 6MWT with SPC or LRAD as a measure of improved efficiency in gait . 11/23/21 - Pt ambulates 633 feet in six min with FWW 02/16: 410 with one seated rest break due to left knee pain 03/28/22: 546 ft w/ SPC no pain but tiring, donned L ankle hinge AFO bracing. LTG Duration 06/18/22 One Impairment lacks HEP Short Term Goal (STG) Pt will be instructed in HEP for BLE strength and ROM within hip precautions 11/21/21: progressing: side clam w/ pillow, bridge w/ TB, STS with band, LAQ, band walk, heel raises, seated hip abd TB . STG Duration 5 weeks - 11/09/21 (progressing : 11/21/21) Assessment Summary Assessment Chayo continues to have weakness that limits her ability to get in and out of her [place]. She needed both SPC and railing support to do hurdles. Posture and strength are improving, but activities that require single leg stance are very challenging. Physical Therapy Plan Therapeutic Interventions Therapeutic Interventions Balance Training,Gait Training ,Home Exercise Program,Manual Therapy,Neuromuscular Re- education,Self-Care/Home Management,Soft Tissue Mobilization,Therapeutic Activities,Therapeutic Exercises Modalities Cold Pack/Ice Massage,Hot Packs Next Visit Focus/Plan Next Note Type Treatment Note Next Visit Plan Continue shuttle recovery. SLS ; gait training w/ SPC. Continue hip abd and adductor strengthening. POC: Progress strength and balance as able. Continue gait training with SPC.
--- NOTE | 2022-06-06 13:38 | PT-OP ANOTE ---
Pt cancelled today's appt due to COVID +.
--- NOTE | 2022-06-20 15:16 | PT.OTN ---
Current Diagnoses Difficulty in walking, not elsewhere classified (06/20/22) Other symptoms and signs involving the musculoskeletal system (06/20/22) Presence of right artificial hip joint (06/20/22) Physical Therapy Treatment Note PT-OP-A Visit Information Start: 10/04/21 16:21 Freq: Status: Active Protocol: Document 06/20/22 14:27 AW (Rec: 06/20/22 15:14 AW [id number]) Out-Patient Physical Therapy Visit Information Visit Information Visit Type Discharge Summary Visit Start Time 14:30 Visit Stop Time 15:10 Total Visit Minutes 40 Visit Number 32 PT-OP-B Current Condition Start: 10/04/21 16:21 Freq: Status: Active Protocol: Document 10/05/21 15:15 AW (Rec: 10/05/21 13:25 AW [id number]) Current Condition History of Current Condition Onset Date July 2021 Current Complaints decreased strength and balance s/p R JOHN posterior approach History of Current Condition Chayo had R posterior hip replacement >2 months ago, went home with home health. She had a good experience with home health and is having no significant pain. She now walks with 4WW nearly 100% of the time and can walk at least 1000 feet in <10 minutes. She does best with good ankle support. She had at least three bad falls before surgery which makes her hesitant to walk without a walker. 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 Prior Treatments and Tests Previous PT for back, hip, and knee pain Treatment Goals Patient/Caregiver Goals Pt would like to walk without assistive device. Thinks she needs to unlearn gait compensations. Current Functional Impairments (Reported) Functional Limitations- Other Difficulty walking without 4WW . Uses 4WW to be able to transport objects while cooking or doing other tasks. Personal Factors Other Personal Factors That May Effect Ovarian CA, breast CA, Therapy/Recovery hypertension, BMI 39.5 PT-OP-C Subjective Start: 10/04/21 16:21 Freq: Status: Active Protocol: Document 06/20/22 14:27 AW (Rec: 06/20/22 15:14 AW [id number]) OP-PT Subjective Patient Comments Patient Comments Pt and her spouse had COVID over holidays. Both recovered well. She understands today is her last day for the hip. Chayo states she is only using walker at home when needing to carry something. She had her AFO remodeled for increased arch support and notices a good difference. PT-OP-D Balance Start: 10/04/21 16:21 Freq: Status: Active Protocol: Document 10/05/21 15:15 AW (Rec: 10/08/21 16:40 AW [id number]) Tinetti Balance Assessment Sitting Balance Sitting Balance Steady, safe Arising from Chair Attempts to Arise Able, requires >1 attempt Standing Balance Immediate Standing Balance Steady w/o support Standing Balance Steady, wide stance Nudged Response Staggers, catches self Standing with Eyes Closed Unsteady Turning Step Pattern Turning 360 Degrees Continuous steps Stability Turning 360 Degrees Unsteady, grabs/staggers Sitting Down Sitting Down Uses arms or unsteady Gait and Step Initiation of Gait No hesitancy Right Foot Step Length Does not pass stance ft. Right Foot Step Height Completely clears floor Left Foot Step Length Does not pass stance foot Left Foot Step Height Completely clears floor Step Description Step Symmetry Step length appears equal Step Continuity Steps appear continuous Gait Description Path Description Mild/moderate deviation Trunk Description Marked sway or uses aide Walking Stance Heels together Scoring and Interpretation Tinetti Composite Score (points) 15 Interpretation of Scores High risk for falls(< 19) Tinetti Impairment Rating from Composite 40 to <60% Impaired (Score 12- Score 16) PT-OP-E Functional Tests Start: 10/04/21 16:21 Freq: Status: Active Protocol: Document 10/05/21 15:15 AW (Rec: 10/08/21 16:40 AW [id number]) Functional Tests 2 Minute Walk Test Distance 190 feet in 101 seconds Device Used 4WW Comments average gait speed 0.57 m/s PT-OP-F Manual Assessment Start: 10/04/21 16:21 Freq: Status: Active Protocol: Document 10/05/21 15:15 AW (Rec: 10/08/21 16:41 AW [id number]) Manual Assessments Soft Tissue Assessment Soft Tissue Mobility Assessment R posterior JOHN scar with fair mobility, some evidence of adhesion. PT-OP-G Mobility & Gait Start: 10/04/21 16:21 Freq: Status: Active Protocol: Document 10/05/21 15:15 AW (Rec: 10/08/21 16:40 AW [id number]) OP Mobility Evaluation Transfers Sit to Stand Requires use of UE to stand from plinth at 23 height. OP Gait Assessment Gait Gait Assistance Required: Standby Assistance Distance (Feet) 190 Assistive Devices Assistive Device 4 Wheeled Walker Orthotic/Prosthetic Devices or Brace: No Gait Deviations General Gait Pattern Antalgic,Decreased Stride Length,Decreased Feet Clearance,Flexed Trunk,Lateral Trunk Lean Comments Gait Comments Gait notable for leftward lean and decreased right foot clearance. Bilateral knee valgus apparent with L more affected than R Stair Climbing Evaluation Evaluation Level of Assist On Stairs Standby Assistance Devices Stair Climbing Assistive Devices Left Railing,Right Railing Technique/Endurance Stair Climbing Direction Ascend and Descend Stair Climbing Technique Step to Step PT-OP-K Range of Motion Start: 10/04/21 16:21 Freq: Status: Active Protocol: Document 10/05/21 15:15 AW (Rec: 10/08/21 16:51 AW [id number]) Hip Goniometric Range of Motion Hip Right Hip ROM WFL Yes Testing Position Supine Comments No restriction within precautions. End range flexion and IR not tested. PT-OP-M Strength Start: 10/04/21 16:21 Freq: Status: Active Protocol: Document 10/05/21 15:15 AW (Rec: 10/08/21 16:51 AW [id number]) Hip Strength Hip Manual Muscle Testing Left Flexion (L2) 4 Good Extension (S1) 3+ Fair+ Abduction 4 Good Right Flexion (L2) 4- Good- Extension (S1) 3+ Fair+ Abduction 4- Good- Knee Strength Knee Manual Muscle Testing Left Flexion (S2) 4+ Good+ Extension (L3) 4+ Good+ Comments Pain with all resisted movement on the left knee. Right Flexion (S2) 4 Good Extension (L3) 4+ Good+ Ankle/Foot Strength Ankle and Foot Manual Muscle Testing bilateral Dorsiflexion (L4) 4+ Good+ Plantarflexion (S1) 4 Good PT-OP-Q Treatments Start: 10/04/21 16:21 Freq: Status: Active Protocol: Document 06/20/22 14:27 AW (Rec: 06/20/22 15:14 AW [id number]) Cardio Equipment Recumbent Elliptical (NVoicePay) Duration (Minutes) 5 Resistance 2 Seat Position 8 Other UEs/ LEs, 30 RPMs, 215steps, R knee starts hurt Therapeutic Exercises Other Exercises sit to stand Other Exercise Name sit to stand Equipment Used mesh chair Reps/Minutes 5 reps x 2 Comments less UE support on thighs today Neuro Re-Education Treatment Balance Activities hurdles Details SPC and railing Comments 3 hurdles x 6 reps- definite need for support both sides rocker board Details rocker board Comments A/P and M/L: good, slow control SLS Details SLS Comments modified with foam under opp foot. No need for UE support. Progressed to SLS with min contact // NBOS Details NBOS Surface Blue Foam Comments -EO -EC -head turns/nods PT-OP-R Modalities Start: 10/04/21 16:21 Freq: Status: Active Protocol: Document 02/20/22 14:37 NBM (Rec: 02/20/22 18:36 NBM [id number]) Hot Pack/Cold Pack Treatment Cold Pack Location L knee Patient Position Hooklying Treatment Duration (minutes) 10 Patient Tolerance Good Comments [place] and needs within reach PT-OP-T Assessment and Plan Start: 10/04/21 16:21 Freq: Status: Active Protocol: Document 06/20/22 14:27 AW (Rec: 06/20/22 15:14 AW [id number]) Physical Therapy Assessment Goals Five Impairment LEFS [place] Steward Goal (LTG) Pt will score 60/80 or greater on LEFS to demonstrate improvement in daily function. 06/20/22 - 37/80 today LTG Duration 06/18/22 Four Impairment decreased balance Short Term Goal (STG) Pt will score 19 or higher on Tinetti. 11/23/21 - GOAL MET. STG Duration 5 weeks - 11/09/21 GOAL MET Skilled Nursing Goal (LTG) Pt will score within age- matched norms on Dynamic Gait Index as a measure of reduced falls risk. 02/16: 06/09 NEW GOAL: on DGI LTG Duration 06/18/22 Three Impairment BLE strength Short Term Goal (STG) Pt will rise from a 21 tall surface without use of hands 11/21/21: requires use of BUE to come to standing, elevated black table, not measurered. 11/23/21 - Pt can rise from 20 mat without use of hands 4 times. STG Duration GOAL MET Skilled Nursing Goal (LTG) Pt will complete 5 Time Sit to Stand from a standard height chair without use of hands in 15 seconds or less as a measure of improved BLE strength and power. 04/12 - 20 surface - 17.7 seconds, 17 seconds 06/20/22 - Standard height chair 26 seconds with min/mod use of hands. Std height chair + 2 blue foam: 19 seconds with less use of hands. LTG Duration 06/18/22 Two Impairment needs assistive device, gait speed Skilled Nursing Goal (LTG) Pt will walk 900 feet on 6MWT with SPC or LRAD as a measure of improved efficiency in gait . 11/23/21 - Pt ambulates 633 feet in six min with FWW 02/16: 410 with one seated rest break due to left knee pain 03/28/22: 546 ft w/ SPC no pain but tiring, donned L ankle hinge AFO bracing. LTG Duration 06/18/22 One Impairment lacks HEP Short Term Goal (STG) Pt will be instructed in HEP for BLE strength and ROM within hip precautions 11/21/21: progressing: side clam w/ pillow, bridge w/ TB, STS with band, LAQ, band walk, heel raises, seated hip abd TB . STG Duration 5 weeks - 11/09/21 (progressing : 11/21/21) Progress Towards Goals Progress Towards Goals Progressing Toward Goals Progress Comments Chayo has benefitted from LLE AFO to improved alignment. Gait quality has improved but endurance has plateaued. Assessment Summary Assessment Assessed goals today and prepared pt for discharge. She has plateaued with gait goals but balance is much improved. Physical Therapy Plan Frequency and Duration Frequency of Treatment 2x/Week Plan of Care Start Date 04/18/22 Plan of Care End Date 06/21/22 Discharge Physical Therapy Discharge Reasons Plateau in Progress Discharge Comments As noted above, pt has plateaued in progress with gait endurance. Gait mechanics have benefitted tremendously from LLE AFO. Pt is able to manage her HEP independently and is ready for discharge. She will return later this month for assessment of her shoulder on a new referral. POC dates updated today to cover final visit.
--- NOTE | 2022-06-20 15:17 | PT.OPPOC ---
Physical, Occupational & Speech Therapy At [facility] Current Diagnoses Difficulty in walking, not elsewhere classified (06/20/22) Other symptoms and signs involving the musculoskeletal system (06/20/22) Presence of right artificial hip joint (06/20/22) Visit Care Team Role Provider Type ENEIDA Bradley Attending Provider Advanced Glue Machine Operator Family Provider Primary Care Provider Referring Provider Specialty: Family Practice Address: [address] [place] [address], [facility] Email: [email or web address] Plan Of Care PT-OP-T Assessment and Plan Start: 10/04/21 16:21 Freq: Status: Active Protocol: Document 06/20/22 14:27 AW (Rec: 06/20/22 15:14 AW [id number]) Physical Therapy Assessment Goals Five Impairment LEFS Electronic Prepress Operator Goal (LTG) Pt will score 60/80 or greater on LEFS to demonstrate improvement in daily function. 06/20/22 - 37/80 today LTG Duration 06/18/22 Four Impairment decreased balance Short Term Goal (STG) Pt will score 19 or higher on Tinetti. 11/23/21 - GOAL MET. STG Duration 5 weeks - 11/09/21 GOAL MET [facility] Goal (LTG) Pt will score within age- matched norms on Dynamic Gait Index as a measure of reduced falls risk. 02/16: 06/09 NEW GOAL: on DGI LTG Duration 06/18/22 Three Impairment BLE strength Short Term Goal (STG) Pt will rise from a 21 tall surface without use of hands 11/21/21: requires use of BUE to come to standing, elevated black table, not measurered. 11/23/21 - Pt can rise from 20 mat without use of hands 4 times. STG Duration GOAL MET [facility] Goal (LTG) Pt will complete 5 Time Sit to Stand from a standard height chair without use of hands in 15 seconds or less as a measure of improved BLE strength and power. 04/12 - 20 surface - 17.7 seconds, 17 seconds 06/20/22 - Standard height chair 26 seconds with min/mod use of hands. Std height chair + 2 blue foam: 19 seconds with less use of hands. LTG Duration 06/18/22 Two Impairment needs assistive device, gait speed Electronic Prepress Operator Goal (LTG) Pt will walk 900 feet on 6MWT with SPC or LRAD as a measure of improved efficiency in gait . 11/23/21 - Pt ambulates 633 feet in six min with FWW 02/16: 410 with one seated rest break due to left knee pain 03/28/22: 546 ft w/ SPC no pain but tiring, donned L ankle hinge AFO bracing. LTG Duration 06/18/22 One Impairment lacks HEP Short Term Goal (STG) Pt will be instructed in HEP for BLE strength and ROM within hip precautions 11/21/21: progressing: side clam w/ pillow, bridge w/ TB, STS with band, LAQ, band walk, heel raises, seated hip abd TB . STG Duration 5 weeks - 11/09/21 (progressing : 11/21/21) Progress Towards Goals Progress Towards Goals Progressing Toward Goals Progress Comments Chayo has benefitted from LLE AFO to improved alignment. Gait quality has improved but endurance has plateaued. Assessment Summary Assessment Assessed goals today and prepared pt for discharge. She has plateaued with gait goals but balance is much improved. Physical Therapy Plan Frequency and Duration Frequency of Treatment 2x/Week Plan of Care Start Date 04/18/22 Plan of Care End Date 06/21/22 Discharge Physical Therapy Discharge Reasons Plateau in Progress Discharge Comments As noted above, pt has plateaued in progress with gait endurance. Gait mechanics have benefitted tremendously from LLE AFO. Pt is able to manage her HEP independently and is ready for discharge. She will return later this month for assessment of her shoulder on a new referral. POC dates updated today to cover final visit. Plan of Care Dates Plan of Care Start Date 04/18/22 Plan of Care End Date 06/21/22 Electronically Signed by: Kim Jerome, PT 06/20/22 3537 If you are in agreement with this Plan of Care, please return a signed and dated copy. I have reviewed this Plan of Care and certify that the skilled therapy services above are required to meet the patient?s needs. Physician Signature Date Printed Name and Credentials Clinical Instructor Signature Printed Name and Credentials
== END 2022-06-25 12:07 | disposition home or self-care (01) ==
LOC: PHYS 14:30
PROVIDERS: Family Provider Nurse Practitioner; PCP Nurse Practitioner; Referring Provider Nurse Practitioner; Visit Provider Nurse Practitioner
DX: Z96.641 Presence of right artificial hip joint (principal); R29.898 Other symptoms and signs involving the musculoskeletal system; R26.2 Difficulty in walking, not elsewhere classified
CPT/HCPCS: 73030; 97110; 97112; 97116; 97140; 97162; 97530; 97535

== ENCOUNTER → 2022-11-13 10:48 | Outpatient (CLI) | payer MEDICARE, OTHER, SELFPAY ==
[2021-07-28 17:31] VITALS: BMI 40.7
[2022-11-13 11:08] LABS: Add Manual Diff / Slide Review NO; Basophils Absolute Auto 100 /uL (0-100); Basophils Percent Auto 0.7 % (0-2); Eosinophils Absolute Auto 400 /uL (0-450); Eosinophils Percent Auto 4.1 % (2-4); Hematocrit 34.3 % (36-46); Hemoglobin 11.7 g/dL (12.0-16.0); Lymphocytes Absolute Auto 1400 /uL (1100-4500); Lymphocytes Percent Auto 13.2 % (25-40); Mean Corpuscular HGB Conc 34.2 % (30-36); Mean Corpuscular Hemoglobin 32.5 PG (26-34); Mean Corpuscular Volume 95.1 fL (80-100); Monocytes Absolute Auto 800 /uL (0-900); Monocytes Percent Auto 7.5 % (3-14); Neutrophils Absolute Auto 8100 /uL (1500-7000); Neutrophils Percent Auto 74.5 % (50-75); Platelet Count 205 X10^3/uL (150-400); Red Blood Cell Count 3.61 X10^6/uL (4.0-5.2); Red Cell Distribution Width 13.5 % (11.6-14.8); White Blood Cell Count 10.8 X10^3/uL (4.5-11.0)
[2022-11-13 11:17] LABS: Alanine Aminotransferase 25 IU/L (<35); Albumin 4.3 g/dL (3.5-5.0); Albumin Globulin Ratio 1.4 (1.0-2.8); Alkaline Phosphatase 77 U/L (38-126); Aspartate Aminotransferase 25 IU/L (14-36); BUN Creatinine Ratio 37.6 (6-22); Bilirubin Total 0.7 mg/dL (0.2-1.3); Blood Urea Nitrogen 38 mg/dL (7-17); Calcium 9.3 mg/dL (8.4-10.2); Carbon Dioxide 22 mmol/L (22-32); Chloride 106 mmol/L (98-107); Estimated Glomerular Filt Rate 59 mL/min (>60); Globulin 3.1 g/dL (1.7-4.1); Glucose 117 mg/dL (80-110); HEMOLYSIS < 15 (0-50); Sodium 136 mmol/L (137-145); Total Protein 7.4 g/dL (6.3-8.2)
[2022-11-13 11:18] LABS: Potassium 5.4 mmol/L (3.4-5.1)
== END ==
PROVIDERS: Internal Medicine Hematology & Oncology; Family Provider Nurse Practitioner; PCP Nurse Practitioner; Referring Provider Nurse Practitioner; Visit Provider Nurse Practitioner
DX: C50.311 Malignant neoplasm of lower-inner quadrant of right female breast (principal); D64.9 Anemia, unspecified
CPT/HCPCS: 36415; 80053; 85025

== ENCOUNTER 2022-12-12 14:30 | Outpatient (RCR) | payer MEDICARE, OTHER, SELFPAY ==
[2021-07-28 17:31] VITALS: BMI 40.7
--- NOTE | 2022-07-09 15:39 | PT.OIE ---
Current Diagnoses Primary osteoarthritis, left shoulder (07/09/22) Primary osteoarthritis, unspecified shoulder (07/09/22) Unspecified rotator cuff tear or rupture of left shoulder, not specified as traumatic (07/09/22) Bicipital tendinitis, left shoulder (07/09/22) Impingement syndrome of left shoulder (07/09/22) Past Medical History (Last Updated 04/12/22 @ 10:25 by ENEIDA Bradley) Acute right hip pain Bilateral bunions Breast cancer, right breast Cervical somatic dysfunction Chronic low back pain Chronic pain of both knees Chronic pain of right knee CKD (chronic kidney disease) Family history of breast cancer in mother Flat feet, bilateral History of antineoplastic chemotherapy History of malignant neoplasm of ovary in adulthood HTN (hypertension) Hyperglycemia Hyperlipidemia Iliotibial band syndrome, right leg Lumbar region somatic dysfunction Neck stiffness Numbness and tingling in both hands Obesity 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 Ovarian carcinoma (~2005) Pain in lateral portion of right knee Pelvic somatic dysfunction Port-A-Cath in place Right knee pain Sacral region somatic dysfunction Segmental and somatic dysfunction of abdomen and other regions Somatic dysfunction of lower extremity Thoracic region somatic dysfunction Transaminitis Past Surgical History (Last Reviewed 04/12/22 @ 10:24 by ENEIDA Bradley) History of colonoscopy History of incisional hernia repair History of lumpectomy of right breast (05/27/18) History of total abdominal hysterectomy and bilateral salpingo-oophorectomy Status post right hip replacement Visit Care Team Role Provider Type ENEIDA Bradley Family Provider Advanced Global Coordinator Primary Care Provider Specialty: Family Practice Address: [address] [place] [address], [id number] Email: [email or web address] Rashid DO Attending Provider Non-Staff Referring Provider Specialty: Orthopedic Surgery Address: [facility] [place], [address] Email: Physical Therapy Initial Evaluation PT-OP-A Visit Information Start: 07/03/22 10:31 Freq: Status: Active Protocol: Document 07/09/22 13:04 AMB (Rec: 07/09/22 14:28 AMB [id number]) Out-Patient Physical Therapy Visit Information Visit Information Visit Type Initial Evaluation Visit Start Time 13:45 Visit Stop Time 14:30 Total Visit Minutes 45 Visit Number 1 Precautions Precautions eczema on shoulder- careful with any adhesives or creams PT-OP-B Current Condition Start: 07/03/22 10:31 Freq: Status: Active Protocol: Document 07/09/22 13:04 AMB (Rec: 07/09/22 14:28 AMB [id number]) Current Condition History of Current Condition Onset Date a few years ago Current Complaints L shoulder pain History of Current Condition Shoulder started hurting when using the walker due to avascular necrosis and hip surgery. Shoulder has been getting somewhat better with d /cing aspercreme (has excema) and the walker. Injection did help for about 3 weeks in April. Currently using SPC in L UE. Prior Treatments and Tests 1. High-grade partial- thickness tear of the distal supraspinatus tendon. There is mild supraspinatus muscle atrophy. 2. Mild infraspinatus and subscapularis tendinosis. 3. Subcoracoid bursitis. 4. Kzjbluyd-jv-pajzlb glenohumeral joint degeneration. 5. Posterior labral tear with paralabral cysts. Treatment Goals Patient/Caregiver Goals Reduce pain with using SPC. Prior Functional Status Baseline Function- ADL's Independent Baseline Function- Mobility Independent Current Functional Impairments (Reported) Functional Limitations- ADL's Difficulty donning/doffing shirts/jackets. Difficulty putting dishes away in cabinets. Personal Factors Other Personal Factors That May Effect Hx ovarian, breast cancer. Hx Therapy/Recovery avascular necrosis R hip. PT-OP-C Subjective Start: 07/03/22 10:31 Freq: Status: Active Protocol: Document 07/09/22 14:57 AMB (Rec: 07/09/22 15:04 AMB [id number]) Patient Questionnaires Quick Dash- Upper Extremity Quick Dash UE Score 32 Quick Dash UE Impairment 20 to 39% Impaired (Score 20- 39) OP-PT Pain Assessment Location Left Shoulder Intensity 3 Scale Used Numeric (0 - 10) PT-OP-F Manual Assessment Start: 07/03/22 10:31 Freq: Status: Active Protocol: Document 07/09/22 14:57 AMB (Rec: 07/09/22 15:04 AMB [id number]) Manual Assessments Soft Tissue Assessment Soft Tissue Mobility Assessment Tenderness over anterior shoulder over biceps tendons. No tenderness noted over scapula. Audible catches is shoulder when moving in and out of abduction. PT-OP-J Posture/Palpation/Skin Start: 07/03/22 10:31 Freq: Status: Active Protocol: Document 07/09/22 14:57 AMB (Rec: 07/09/22 15:04 AMB [id number]) Posture Evaluation Comments Posture Comments Forward shoulders, pt tends to let shoulder go up into shoulder elevation when using cane or when moving arm. PT-OP-K Range of Motion Start: 07/03/22 10:31 Freq: Status: Active Protocol: Document 07/09/22 13:04 AMB (Rec: 07/09/22 14:28 AMB [id number]) Shoulder Goniometric Range of Motion Shoulder Right Active Flexion 175 Abduction 85 External Rotation at 90 degrees 60 Abduction External Rotation at 0 degrees Abduction 85 Left Active Flexion 147 Abduction 80 External Rotation at 90 degrees 25 Abduction Internal Rotation 85 PT-OP-M Strength Start: 07/03/22 10:31 Freq: Status: Active Protocol: Document 07/09/22 13:04 AMB (Rec: 07/09/22 14:28 AMB [id number]) Shoulder Strength Shoulder Manual Muscle Testing Right Flexion 3+ Fair+ Abduction (C5) 3- Fair- External Rotation 4- Good- Internal Rotation 4 Good Left Flexion 4- Good- Abduction (C5) 3- Fair- External Rotation 3+ Fair+ Internal Rotation 4 Good PT-OP-Q Treatments Start: 07/03/22 10:31 Freq: Status: Active Protocol: Document 07/09/22 14:57 AMB (Rec: 07/09/22 15:04 AMB [id number]) Therapeutic Exercises Standing Exercises wall walk Side bilateral Reps/Minutes 2x5 Comments fwd PT-OP-T Assessment and Plan Start: 07/03/22 10:31 Freq: Status: Active Protocol: Document 07/09/22 13:45 AMB (Rec: 07/09/22 15:15 AMB [id number]) Physical Therapy Assessment Rehab Potential Rehabilitation Potential Good Evaluation Complexity Number of Personal Factors/Comorbidities 1-2 Number of Body Systems Impaired 4 or More Clinical Presentation at Evaluation Stable Impairments Impairments Functional Activities,Pain,ROM ,Strength Goals Three Impairment HEP Short Term Goal (STG) Chayo will be independent and consistent with a HEP to improve her strength and ROM. STG Duration 4 weeks Two Impairment Pain Short Term Goal (STG) Chayo will ambulate for 5 minutes with 3/10 pain in her L shoulder or less. STG Duration 4 weeks Medical Laboratory Technologist Goal (LTG) Chayo will reach up to put a plate away in a cabinet without an increase in baseline shoulder pain. LTG Duration 10 weeks One Impairment ROM Short Term Goal (STG) Chayo will improve her left shoulder flexion to 160 degrees. STG Duration 4 weeks Medical Laboratory Technologist Goal (LTG) Chayo will improve her active shoulder abduction to at least 110 degrees. LTG Duration 10 weeks Assessment Summary Assessment Chayo attends physical therapy with L shoulder pain. MRI showed significant arthritic and rotatorcuff/labral tears. Upon evaluation, both left and right shoulder are weak and restricted in ROM, however Chayo needs to use the L arm for her SPC due to her LE weakness and that is exacerbating her pain. She will benefit from strengthening, improving shoulder ROM and gait training to reduce the strain on her L shoulder and her need to weightbear through the L UE is exacerbating her pain. Physical Therapy Plan Frequency and Duration Frequency of Treatment 2x/Week Duration of treatment (weeks) 10 Plan of Care Start Date 07/09/22 Plan of Care End Date 09/17/22 Therapeutic Interventions Therapeutic Interventions Gait Training,Home Exercise Program,Joint Mobilizations, Manual Therapy,Neuromuscular Re-education,Self-Care/Home Management,Therapeutic Activities,Therapeutic Exercises Modalities Cold Pack/Ice Massage,Electric Stimulation,Hot Packs Next Visit Focus/Plan Next Note Type Treatment Note Next Visit Plan Review wall walk, continue gait training to reduce UT substitution, consider isometrics
--- NOTE | 2022-07-09 15:40 | PT.OPPOC ---
Physical, Occupational & Speech Therapy At [facility] Current Diagnoses Primary osteoarthritis, left shoulder (07/09/22) Primary osteoarthritis, unspecified shoulder (07/09/22) Unspecified rotator cuff tear or rupture of left shoulder, not specified as traumatic (07/09/22) Bicipital tendinitis, left shoulder (07/09/22) Impingement syndrome of left shoulder (07/09/22) Visit Care Team Role Provider Type ENEIDA Bradley Family Provider Advanced Rn Obgyn Primary Care Provider Specialty: Family Practice Address: [address] [place] [address], [id number] Email: [email or web address] Rashid DO Attending Provider Non-Staff Referring Provider Specialty: Orthopedic Surgery Address: [address] [place] [address], [id number] Email: Plan Of Care PT-OP-T Assessment and Plan Start: 07/03/22 10:31 Freq: Status: Active Protocol: Document 07/09/22 13:45 AMB (Rec: 07/09/22 15:15 AMB [id number]) Physical Therapy Assessment Rehab Potential Rehabilitation Potential Good Evaluation Complexity Number of Personal Factors/Comorbidities 1-2 Number of Body Systems Impaired 4 or More Clinical Presentation at Evaluation Stable Impairments Impairments Functional Activities,Pain,ROM ,Strength Goals Three Impairment HEP Short Term Goal (STG) Chayo will be independent and consistent with a HEP to improve her strength and ROM. STG Duration 4 weeks Two Impairment Pain Short Term Goal (STG) Chayo will ambulate for 5 minutes with 3/10 pain in her L shoulder or less. STG Duration 4 weeks Aircrewman Goal (LTG) Chayo will reach up to put a plate away in a cabinet without an increase in baseline shoulder pain. LTG Duration 10 weeks One Impairment ROM Short Term Goal (STG) Chayo will improve her left shoulder flexion to 160 degrees. STG Duration 4 weeks Aircrewman Goal (LTG) Chayo will improve her active shoulder abduction to at least 110 degrees. LTG Duration 10 weeks Assessment Summary Assessment Chayo attends physical therapy with L shoulder pain. MRI showed significant arthritic and rotatorcuff/labral tears. Upon evaluation, both left and right shoulder are weak and restricted in ROM, however Chayo needs to use the L arm for her SPC due to her LE weakness and that is exacerbating her pain. She will benefit from strengthening, improving shoulder ROM and gait training to reduce the strain on her L shoulder and her need to weighbtear through the L UE is exacerbating her pain. Physical Therapy Plan Frequency and Duration Frequency of Treatment 2x/Week Duration of treatment (weeks) 10 Plan of Care Start Date 07/09/22 Plan of Care End Date 09/17/22 Therapeutic Interventions Therapeutic Interventions Gait Training,Home Exercise Program,Joint Mobilizations, Manual Therapy,Neuromuscular Re-education,Self-Care/Home Management,Therapeutic Activities,Therapeutic Exercises Modalities Cold Pack/Ice Massage,Electric Stimulation,Hot Packs Next Visit Focus/Plan Next Note Type Treatment Note Next Visit Plan Review wall walk, continue gait training to reduce UT substitution, consider isometrics Plan of Care Dates Plan of Care Start Date 07/09/22 Plan of Care End Date 09/17/22 Electronically Signed by: Caroline Calloway, PT 07/09/22 1347 If you are in agreement with this Plan of Care, please return a signed and dated copy. I have reviewed this Plan of Care and certify that the skilled therapy services above are required to meet the patient?s needs. Physician Signature Date Printed Name and Credentials Clinical Instructor Signature Printed Name and Credentials
--- NOTE | 2022-07-11 21:17 | PT.OTN ---
Current Diagnoses Primary osteoarthritis, left shoulder (07/11/22) Primary osteoarthritis, unspecified shoulder (07/11/22) Unspecified rotator cuff tear or rupture of left shoulder, not specified as traumatic (07/11/22) Bicipital tendinitis, left shoulder (07/11/22) Impingement syndrome of left shoulder (07/11/22) Physical Therapy Treatment Note PT-OP-A Visit Information Start: 07/03/22 10:31 Freq: Status: Active Protocol: Document 07/11/22 13:48 AMB (Rec: 07/11/22 14:30 AMB [id number]) Out-Patient Physical Therapy Visit Information Visit Information Visit Type Treatment Note Visit Start Time 13:45 Visit Stop Time 14:30 Total Visit Minutes 45 Visit Number 2 PT-OP-B Current Condition Start: 07/03/22 10:31 Freq: Status: Active Protocol: Document 07/09/22 13:04 AMB (Rec: 07/09/22 14:28 AMB [id number]) Current Condition History of Current Condition Onset Date a few years ago Current Complaints L shoulder pain History of Current Condition Shoulder started hurting when using the walker due to avascular necrosis and hip surgery. Shoulder has been getting somewhat better with d /cing aspercreme (has excema) and the walker. Injection did help for about 3 weeks in April. Currently using SPC in L UE. Prior Treatments and Tests 1. High-grade partial- thickness tear of the distal supraspinatus tendon. There is mild supraspinatus muscle atrophy. 2. Mild infraspinatus and subscapularis tendinosis. 3. Subcoracoid bursitis. 4. Xyoqzuvx-ut-bugkjd glenohumeral joint degeneration. 5. Posterior labral tear with paralabral cysts. Treatment Goals Patient/Caregiver Goals Reduce pain with using SPC. Prior Functional Status Baseline Function- ADL's Independent Baseline Function- Mobility Independent Current Functional Impairments (Reported) Functional Limitations- ADL's Difficulty donning/doffing shirts/jackets. Difficulty putting dishes away in cabinets. Personal Factors Other Personal Factors That May Effect Hx ovarian, breast cancer. Hx Therapy/Recovery avascular necrosis R hip. PT-OP-C Subjective Start: 07/03/22 10:31 Freq: Status: Active Protocol: Document 07/11/22 13:45 AMB (Rec: 07/13/22 21:17 AMB [id number]) OP-PT Subjective Patient Comments Patient Comments Pt attends PT stating she was sore after last visit. She brings the exercises her MD gave her, stating she has done the pendulums but the other exercises were too much. PT-OP-F Manual Assessment Start: 07/03/22 10:31 Freq: Status: Active Protocol: Document 07/09/22 14:57 AMB (Rec: 07/09/22 15:04 AMB [id number]) Manual Assessments Soft Tissue Assessment Soft Tissue Mobility Assessment Tenderness over anterior shoulder over biceps tendons. No tenderness noted over scapula. Audible catches is shoulder when moving in and out of abduction. PT-OP-J Posture/Palpation/Skin Start: 07/03/22 10:31 Freq: Status: Active Protocol: Document 07/09/22 14:57 AMB (Rec: 07/09/22 15:04 AMB [id number]) Posture Evaluation Comments Posture Comments Forward shoulders, pt tends to let shoulder go up into shoulder elevation when using cane or when moving arm. PT-OP-K Range of Motion Start: 07/03/22 10:31 Freq: Status: Active Protocol: Document 07/09/22 13:04 AMB (Rec: 07/09/22 14:28 AMB [id number]) Shoulder Goniometric Range of Motion Shoulder Right Active Flexion 175 Abduction 85 External Rotation at 90 degrees 60 Abduction External Rotation at 0 degrees Abduction 85 Left Active Flexion 147 Abduction 80 External Rotation at 90 degrees 25 Abduction Internal Rotation 85 PT-OP-M Strength Start: 07/03/22 10:31 Freq: Status: Active Protocol: Document 07/09/22 13:04 AMB (Rec: 07/09/22 14:28 AMB [id number]) Shoulder Strength Shoulder Manual Muscle Testing Right Flexion 3+ Fair+ Abduction (C5) 3- Fair- External Rotation 4- Good- Internal Rotation 4 Good Left Flexion 4- Good- Abduction (C5) 3- Fair- External Rotation 3+ Fair+ Internal Rotation 4 Good PT-OP-Q Treatments Start: 07/03/22 10:31 Freq: Status: Active Protocol: Document 07/11/22 13:45 AMB (Rec: 07/13/22 21:17 AMB [id number]) Therapeutic Exercises Supine Exercises isometrics Supine Exercise Name at 90 degrees flexion-- gentle Side left Reps/Minutes 2x10 Comments flex, ext, horizontal abd, add Standing Exercises t band ER Side left Resistance #2 Reps/Minutes 2x5 t band IR Side left Resistance #2 Reps/Minutes 2x10 t band rows Side bilateral Resistance #2 band Reps/Minutes 2x10 Manual Therapy Treatment Soft Tissue Mobilization L shoulder Body Location upper traps, biceps Mobilization Type Cross-Friction,Myofascial Release,Strumming,Sustained Pressure Intensity/Depth Moderate Body Position Hooklying PT-OP-T Assessment and Plan Start: 07/03/22 10:31 Freq: Status: Active Protocol: Document 07/11/22 13:45 AMB (Rec: 07/13/22 21:17 AMB [id number]) Physical Therapy Assessment Goals Three Impairment HEP Short Term Goal (STG) Chayo will be independent and consistent with a HEP to improve her strength and ROM. STG Duration 4 weeks Two Impairment Pain Short Term Goal (STG) Chayo will ambulate for 5 minutes with 3/10 pain in her L shoulder or less. STG Duration 4 weeks Half-Way Goal (LTG) Chayo will reach up to put a plate away in a cabinet without an increase in baseline shoulder pain. LTG Duration 10 weeks One Impairment ROM Short Term Goal (STG) Chayo will improve her left shoulder flexion to 160 degrees. STG Duration 4 weeks Half-Way Goal (LTG) Chayo will improve her active shoulder abduction to at least 110 degrees. LTG Duration 10 weeks Assessment Summary Assessment Reviewed physician handout that patient brought in and agreed with pt that it was too aggressive for her current function. Pt did tolerate lower level band exercises well but did not give ER as HEP as that was quite challenging/painful, started with isometrics with cues to meet therapists resistance keeping resistance very light for right now. Follow up with tolerance at next visit, will likely continue working on scapular stabilization and light strengthening below shoulder height. Physical Therapy Plan Frequency and Duration Frequency of Treatment 2x/Week Duration of treatment (weeks) 10 Plan of Care Start Date 07/09/22 Plan of Care End Date 09/17/22 Therapeutic Interventions Therapeutic Interventions Gait Training,Home Exercise Program,Joint Mobilizations, Manual Therapy,Neuromuscular Re-education,Self-Care/Home Management,Therapeutic Activities,Therapeutic Exercises Modalities Cold Pack/Ice Massage,Electric Stimulation,Hot Packs Next Visit Focus/Plan Next Note Type Treatment Note Next Visit Plan Review t band rows and IR, continue gait training to reduce UT substitution, consider isometrics vs continuing to progress gentle T band
--- NOTE | 2022-07-17 14:30 | PT.OTN ---
Current Diagnoses Primary osteoarthritis, left shoulder (07/17/22) Primary osteoarthritis, unspecified shoulder (07/17/22) Unspecified rotator cuff tear or rupture of left shoulder, not specified as traumatic (07/17/22) Bicipital tendinitis, left shoulder (07/17/22) Impingement syndrome of left shoulder (07/17/22) Physical Therapy Treatment Note PT-OP-A Visit Information Start: 07/03/22 10:31 Freq: Status: Active Protocol: Document 07/17/22 13:52 SP (Rec: 07/17/22 14:34 SP [id number]) Out-Patient Physical Therapy Visit Information Visit Information Visit Type Treatment Note Visit Start Time 13:52 Visit Stop Time 14:30 Total Visit Minutes 38 Visit Number 3 Number of BUILDING MAINTENANCE ENGINEER Visits 1 Precautions Precautions eczema on shoulder- careful with any adhesives or creams PT-OP-B Current Condition Start: 07/03/22 10:31 Freq: Status: Active Protocol: Document 07/09/22 13:04 AMB (Rec: 07/09/22 14:28 AMB [id number]) Current Condition History of Current Condition Onset Date a few years ago Current Complaints L shoulder pain History of Current Condition Shoulder started hurting when using the walker due to avascular necrosis and hip surgery. Shoulder has been getting somewhat better with d /cing aspercreme (has excema) and the walker. Injection did help for about 3 weeks in April. Currently using SPC in L UE. Prior Treatments and Tests 1. High-grade partial- thickness tear of the distal supraspinatus tendon. There is mild supraspinatus muscle atrophy. 2. Mild infraspinatus and subscapularis tendinosis. 3. Subcoracoid bursitis. 4. Ajfbnwys-ku-qucsat glenohumeral joint degeneration. 5. Posterior labral tear with paralabral cysts. Treatment Goals Patient/Caregiver Goals Reduce pain with using SPC. Prior Functional Status Baseline Function- ADL's Independent Baseline Function- Mobility Independent Current Functional Impairments (Reported) Functional Limitations- ADL's Difficulty donning/doffing shirts/jackets. Difficulty putting dishes away in cabinets. Personal Factors Other Personal Factors That May Effect Hx ovarian, breast cancer. Hx Therapy/Recovery avascular necrosis R hip. PT-OP-C Subjective Start: 07/03/22 10:31 Freq: Status: Active Protocol: Document 07/17/22 13:52 SP (Rec: 07/17/22 14:34 SP [id number]) OP-PT Subjective Patient Comments Patient Comments Pt reported little sore pecs from kneading and mixing hilary yesterday. PT-OP-F Manual Assessment Start: 07/03/22 10:31 Freq: Status: Active Protocol: Document 07/09/22 14:57 AMB (Rec: 07/09/22 15:04 AMB [id number]) Manual Assessments Soft Tissue Assessment Soft Tissue Mobility Assessment Tenderness over anterior shoulder over biceps tendons. No tenderness noted over scapula. Audible catches is shoulder when moving in and out of abduction. PT-OP-J Posture/Palpation/Skin Start: 07/03/22 10:31 Freq: Status: Active Protocol: Document 07/09/22 14:57 AMB (Rec: 07/09/22 15:04 AMB [id number]) Posture Evaluation Comments Posture Comments Forward shoulders, pt tends to let shoulder go up into shoulder elevation when using cane or when moving arm. PT-OP-K Range of Motion Start: 07/03/22 10:31 Freq: Status: Active Protocol: Document 07/09/22 13:04 AMB (Rec: 07/09/22 14:28 AMB [id number]) Shoulder Goniometric Range of Motion Shoulder Right Active Flexion 175 Abduction 85 External Rotation at 90 degrees 60 Abduction External Rotation at 0 degrees Abduction 85 Left Active Flexion 147 Abduction 80 External Rotation at 90 degrees 25 Abduction Internal Rotation 85 PT-OP-M Strength Start: 07/03/22 10:31 Freq: Status: Active Protocol: Document 07/09/22 13:04 AMB (Rec: 07/09/22 14:28 AMB [id number]) Shoulder Strength Shoulder Manual Muscle Testing Right Flexion 3+ Fair+ Abduction (C5) 3- Fair- External Rotation 4- Good- Internal Rotation 4 Good Left Flexion 4- Good- Abduction (C5) 3- Fair- External Rotation 3+ Fair+ Internal Rotation 4 Good PT-OP-Q Treatments Start: 07/03/22 10:31 Freq: Status: Active Protocol: Document 07/17/22 13:52 SP (Rec: 07/17/22 14:34 SP [id number]) Therapeutic Exercises Supine Exercises AAROM Supine Exercise Name FF, ER, HABD Side left Resistance AAROM Reps/Minutes 6 min Comments cued scap retraction, inf glide Sidelying Exercises AAROM Sidelying Exercise Name HABD, ABD (limted >90d eg javier) Side left Resistance AAROM Comments tactile/VCs scap retract/ depress Standing Exercises t band ER Side left Resistance TB#2 Equipment Used towel under arm Reps/Minutes 2x5 Comments cued scap/elbow depression, t band IR Side left Resistance TB#2 Equipment Used towel under arm Reps/Minutes 2x10 t band rows Side bilateral Resistance TB#2 band Reps/Minutes 2x10 Other Exercises pendulum L shld Other Exercise Name Instructed seated, stand Side left Resistance PROM w/ momentum Reps/Minutes 3 min total Comments cued L shld relaxed use RUE and trunk momentum for swing Manual Therapy Treatment Soft Tissue Mobilization L shoulder Body Location upper traps, biceps Mobilization Type Cross-Friction,Myofascial Release,Strumming,Sustained Pressure Intensity/Depth Moderate Body Position Hooklying Joint Mobilizations L GH Jt Direction inferior, post glide Grade II Body Position Hooklying PT-OP-T Assessment and Plan Start: 07/03/22 10:31 Freq: Status: Active Protocol: Document 07/17/22 13:52 SP (Rec: 07/17/22 14:34 SP [id number]) Physical Therapy Assessment Goals Three Impairment HEP Short Term Goal (STG) Chayo will be independent and consistent with a HEP to improve her strength and ROM. STG Duration 4 weeks Two Impairment Pain Short Term Goal (STG) Chayo will ambulate for 5 minutes with 3/10 pain in her L shoulder or less. STG Duration 4 weeks Area Loss Prevention Manager Goal (LTG) Chayo will reach up to put a plate away in a cabinet without an increase in baseline shoulder pain. LTG Duration 10 weeks One Impairment ROM Short Term Goal (STG) Chayo will improve her left shoulder flexion to 160 degrees. STG Duration 4 weeks Jail Goal (LTG) Chayo will improve her active shoulder abduction to at least 110 degrees. LTG Duration 10 weeks Assessment Summary Assessment Pt good feedback response and improvement in scap retract/ depress and humeral inferior glide and tall postural lift awareness corrections through range/ ther ex allows for decreased pain anterior L shld . Physical Therapy Plan Frequency and Duration Frequency of Treatment 2x/Week Duration of treatment (weeks) 10 Plan of Care Start Date 07/09/22 Plan of Care End Date 09/17/22 Therapeutic Interventions Therapeutic Interventions Gait Training,Home Exercise Program,Joint Mobilizations, Manual Therapy,Neuromuscular Re-education,Self-Care/Home Management,Therapeutic Activities,Therapeutic Exercises Modalities Cold Pack/Ice Massage,Electric Stimulation,Hot Packs Next Visit Focus/Plan Next Note Type Treatment Note Next Visit Plan Review t band rows and IR w/ eccentric ER. POC: continue gait training to reduce UT substitution more LT stabilization, consider isometrics vs continuing to progress gentle T band
--- NOTE | 2022-07-19 16:43 | PT.OTN ---
Current Diagnoses Primary osteoarthritis, left shoulder (07/19/22) Primary osteoarthritis, unspecified shoulder (07/19/22) Unspecified rotator cuff tear or rupture of left shoulder, not specified as traumatic (07/19/22) Bicipital tendinitis, left shoulder (07/19/22) Impingement syndrome of left shoulder (07/19/22) Physical Therapy Treatment Note PT-OP-A Visit Information Start: 07/03/22 10:31 Freq: Status: Active Protocol: Document 07/19/22 13:48 SAK (Rec: 07/19/22 14:28 SAK [id number]) Out-Patient Physical Therapy Visit Information Visit Information Visit Type Treatment Note Visit Start Time 13:48 Visit Stop Time 14:30 Total Visit Minutes 42 Visit Number 4 Number of LEASE PICKER Visits 0 Precautions Precautions eczema on shoulder- careful with any adhesives or creams PT-OP-B Current Condition Start: 07/03/22 10:31 Freq: Status: Active Protocol: Document 07/09/22 13:04 AMB (Rec: 07/09/22 14:28 AMB [id number]) Current Condition History of Current Condition Onset Date a few years ago Current Complaints L shoulder pain History of Current Condition Shoulder started hurting when using the walker due to avascular necrosis and hip surgery. Shoulder has been getting somewhat better with d /cing aspercreme (has excema) and the walker. Injection did help for about 3 weeks in April. Currently using SPC in L UE. Prior Treatments and Tests 1. High-grade partial- thickness tear of the distal supraspinatus tendon. There is mild supraspinatus muscle atrophy. 2. Mild infraspinatus and subscapularis tendinosis. 3. Subcoracoid bursitis. 4. Gpuzhzsm-kt-pybpje glenohumeral joint degeneration. 5. Posterior labral tear with paralabral cysts. Treatment Goals Patient/Caregiver Goals Reduce pain with using SPC. Prior Functional Status Baseline Function- ADL's Independent Baseline Function- Mobility Independent Current Functional Impairments (Reported) Functional Limitations- ADL's Difficulty donning/doffing shirts/jackets. Difficulty putting dishes away in cabinets. Personal Factors Other Personal Factors That May Effect Hx ovarian, breast cancer. Hx Therapy/Recovery avascular necrosis R hip. PT-OP-C Subjective Start: 07/03/22 10:31 Freq: Status: Active Protocol: Document 07/19/22 13:48 SAK (Rec: 07/19/22 16:43 SAK [id number]) OP-PT Subjective Patient Comments Patient Comments Patient reports increased pain in shoulder with walking due to use of cane. PT-OP-F Manual Assessment Start: 07/03/22 10:31 Freq: Status: Active Protocol: Document 07/09/22 14:57 AMB (Rec: 07/09/22 15:04 AMB [id number]) Manual Assessments Soft Tissue Assessment Soft Tissue Mobility Assessment Tenderness over anterior shoulder over biceps tendons. No tenderness noted over scapula. Audible catches is shoulder when moving in and out of abduction. PT-OP-J Posture/Palpation/Skin Start: 07/03/22 10:31 Freq: Status: Active Protocol: Document 07/09/22 14:57 AMB (Rec: 07/09/22 15:04 AMB [id number]) Posture Evaluation Comments Posture Comments Forward shoulders, pt tends to let shoulder go up into shoulder elevation when using cane or when moving arm. PT-OP-K Range of Motion Start: 07/03/22 10:31 Freq: Status: Active Protocol: Document 07/09/22 13:04 AMB (Rec: 07/09/22 14:28 AMB [id number]) Shoulder Goniometric Range of Motion Shoulder Right Active Flexion 175 Abduction 85 External Rotation at 90 degrees 60 Abduction External Rotation at 0 degrees Abduction 85 Left Active Flexion 147 Abduction 80 External Rotation at 90 degrees 25 Abduction Internal Rotation 85 PT-OP-M Strength Start: 07/03/22 10:31 Freq: Status: Active Protocol: Document 07/09/22 13:04 AMB (Rec: 07/09/22 14:28 AMB [id number]) Shoulder Strength Shoulder Manual Muscle Testing Right Flexion 3+ Fair+ Abduction (C5) 3- Fair- External Rotation 4- Good- Internal Rotation 4 Good Left Flexion 4- Good- Abduction (C5) 3- Fair- External Rotation 3+ Fair+ Internal Rotation 4 Good PT-OP-Q Treatments Start: 07/03/22 10:31 Freq: Status: Active Protocol: Document 07/19/22 13:48 SAK (Rec: 07/19/22 14:28 SAK [id number]) Therapeutic Exercises Supine Exercises AAROM Supine Exercise Name FF, ER, HABD Side left Resistance AAROM Reps/Minutes 6 min Comments cued scap retraction, inf glide Sidelying Exercises shoulder ER Sidelying Exercise Name AAROM Reps/Minutes 10x Comments PT assist for form scapular clocks Sidelying Exercise Name 3, 4, 5:00 Reps/Minutes 5x2 with manual resistance Standing Exercises shoulder extension Resistance L1 TB Reps/Minutes 10x Comments vc and manual cues for scapular movement, inhibit UT t band ER Side left Resistance TB#2 Equipment Used towel under arm Reps/Minutes 2x5 Comments cued scap/elbow depression, t band IR Side left Resistance TB#2 Equipment Used towel under arm Reps/Minutes 2x10 Comments vc and manual cues for scapular movement, inhibit UT t band rows Side bilateral Resistance TB#2 band Reps/Minutes 2x10 Comments vc and manual cues for scapular movement, inhibit UT Other Exercises pendulum L shld Other Exercise Name Instructed seated, stand Side left Resistance PROM w/ momentum Reps/Minutes 3 min total Comments cued L shld relaxed use RUE and trunk momentum for swing Therapeutic Activity Therapeutic Activity SPC adjustment Comments adjusted SPC down one notch with noted improved shoulder mechanics with gait and patient reporting hip felt better. Cued smaller movement with cane and activate scapular stabilizers as push down with cane Manual Therapy Treatment Soft Tissue Mobilization L shoulder Body Location upper traps, biceps Mobilization Type Cross-Friction,Myofascial Release,Strumming,Sustained Pressure Intensity/Depth Moderate Body Position Hooklying Comments sidelying to rhomboids Joint Mobilizations scapula Direction pro/retraction, inf glide Grade III Body Position Sidelying L GH Jt Direction inferior, post glide Grade II Body Position Hooklying PT-OP-T Assessment and Plan Start: 07/03/22 10:31 Freq: Status: Active Protocol: Document 07/19/22 13:48 [facility] (Rec: 07/19/22 14:28 [facility] [id number]) Physical Therapy Assessment Goals Three Impairment HEP Short Term Goal (STG) Chayo will be independent and consistent with a HEP to improve her strength and ROM. STG Duration 4 weeks Two Impairment Pain Short Term Goal (STG) Chayo will ambulate for 5 minutes with 3/10 pain in her L shoulder or less. STG Duration 4 weeks Trolley Coach Driver Goal (LTG) Chayo will reach up to put a plate away in a cabinet without an increase in baseline shoulder pain. LTG Duration 10 weeks One Impairment ROM Short Term Goal (STG) Chayo will improve her left shoulder flexion to 160 degrees. STG Duration 4 weeks Assisted Goal (LTG) Chayo will improve her active shoulder abduction to at least 110 degrees. LTG Duration 10 weeks Assessment Summary Assessment Improved shoulder posture and activation of scapular stabilizers after cane adjustment. Verbal and tactile cues for scapular activation with theraband exercises and frequent postural correction throughout day with verbalized understanding. Reported decreased pain after PT session today. Physical Therapy Plan Frequency and Duration Frequency of Treatment 2x/Week Duration of treatment (weeks) 10 Plan of Care Start Date 07/09/22 Plan of Care End Date 09/17/22 Therapeutic Interventions Therapeutic Interventions Gait Training,Home Exercise Program,Joint Mobilizations, Manual Therapy,Neuromuscular Re-education,Self-Care/Home Management,Therapeutic Activities,Therapeutic Exercises Modalities Cold Pack/Ice Massage,Electric Stimulation,Hot Packs Next Visit Focus/Plan Next Note Type Treatment Note Next Visit Plan POC: continue gait training to reduce UT substitution more LT stabilization, consider isometrics vs continuing to progress gentle T band
--- NOTE | 2022-07-24 14:30 | PT.OTN ---
Current Diagnoses Primary osteoarthritis, left shoulder (07/24/22) Primary osteoarthritis, unspecified shoulder (07/24/22) Unspecified rotator cuff tear or rupture of left shoulder, not specified as traumatic (07/24/22) Bicipital tendinitis, left shoulder (07/24/22) Impingement syndrome of left shoulder (07/24/22) Physical Therapy Treatment Note PT-OP-A Visit Information Start: 07/03/22 10:31 Freq: Status: Active Protocol: Document 07/24/22 14:01 AMB (Rec: 07/24/22 14:33 AMB [id number]) Out-Patient Physical Therapy Visit Information Visit Information Visit Type Treatment Note Visit Start Time 13:45 Visit Stop Time 14:25 Total Visit Minutes 40 Visit Number 5 PT-OP-B Current Condition Start: 07/03/22 10:31 Freq: Status: Active Protocol: Document 07/09/22 13:04 AMB (Rec: 07/09/22 14:28 AMB [id number]) Current Condition History of Current Condition Onset Date a few years ago Current Complaints L shoulder pain History of Current Condition Shoulder started hurting when using the walker due to avascular necrosis and hip surgery. Shoulder has been getting somewhat better with d /cing aspercreme (has excema) and the walker. Injection did help for about 3 weeks in April. Currently using SPC in L UE. Prior Treatments and Tests 1. High-grade partial- thickness tear of the distal supraspinatus tendon. There is mild supraspinatus muscle atrophy. 2. Mild infraspinatus and subscapularis tendinosis. 3. Subcoracoid bursitis. 4. Zllvugwy-pc-[id number] glenohumeral joint degeneration. 5. Posterior labral tear with paralabral cysts. Treatment Goals Patient/Caregiver Goals Reduce pain with using SPC. Prior Functional Status Baseline Function- ADL's Independent Baseline Function- Mobility Independent Current Functional Impairments (Reported) Functional Limitations- ADL's Difficulty donning/doffing shirts/jackets. Difficulty putting dishes away in cabinets. Personal Factors Other Personal Factors That May Effect Hx ovarian, breast cancer. Hx Therapy/Recovery avascular necrosis R hip. PT-OP-C Subjective Start: 07/03/22 10:31 Freq: Status: Active Protocol: Document 07/19/22 13:48 SAK (Rec: 07/19/22 16:43 SAK [id number]) OP-PT Subjective Patient Comments Patient Comments Patient reports increased pain in shoulder with walking due to use of cane. PT-OP-F Manual Assessment Start: 07/03/22 10:31 Freq: Status: Active Protocol: Document 07/09/22 14:57 AMB (Rec: 07/09/22 15:04 AMB [id number]) Manual Assessments Soft Tissue Assessment Soft Tissue Mobility Assessment Tenderness over anterior shoulder over biceps tendons. No tenderness noted over scapula. Audible catches is shoulder when moving in and out of abduction. PT-OP-J Posture/Palpation/Skin Start: 07/03/22 10:31 Freq: Status: Active Protocol: Document 07/09/22 14:57 AMB (Rec: 07/09/22 15:04 AMB [id number]) Posture Evaluation Comments Posture Comments Forward shoulders, pt tends to let shoulder go up into shoulder elevation when using cane or when moving arm. PT-OP-K Range of Motion Start: 07/03/22 10:31 Freq: Status: Active Protocol: Document 07/09/22 13:04 AMB (Rec: 07/09/22 14:28 AMB [id number]) Shoulder Goniometric Range of Motion Shoulder Right Active Flexion 175 Abduction 85 External Rotation at 90 degrees 60 Abduction External Rotation at 0 degrees Abduction 85 Left Active Flexion 147 Abduction 80 External Rotation at 90 degrees 25 Abduction Internal Rotation 85 PT-OP-M Strength Start: 07/03/22 10:31 Freq: Status: Active Protocol: Document 07/09/22 13:04 AMB (Rec: 07/09/22 14:28 AMB [id number]) Shoulder Strength Shoulder Manual Muscle Testing Right Flexion 3+ Fair+ Abduction (C5) 3- Fair- External Rotation 4- Good- Internal Rotation 4 Good Left Flexion 4- Good- Abduction (C5) 3- Fair- External Rotation 3+ Fair+ Internal Rotation 4 Good PT-OP-Q Treatments Start: 07/03/22 10:31 Freq: Status: Active Protocol: Document 07/24/22 13:45 AMB (Rec: 07/25/22 07:34 AMB [id number]) Therapeutic Exercises Supine Exercises AAROM Supine Exercise Name FF, ER, HABD Side left Resistance AAROM Reps/Minutes 6 min Comments cued scap retraction, inf glide Sidelying Exercises shoulder ER Sidelying Exercise Name AAROM Reps/Minutes 10x Comments PT assist for form Standing Exercises t band ER Side left Resistance TB#2 Equipment Used towel under arm Reps/Minutes 2x5 Comments cued scap/elbow depression, t band IR Side left Resistance TB#2 Equipment Used towel under arm Reps/Minutes 2x10 Comments vc and manual cues for scapular movement, inhibit UT t band rows Side bilateral Resistance TB#2 band Reps/Minutes 2x10 Comments vc and manual cues for scapular movement, inhibit UT Manual Therapy Treatment Soft Tissue Mobilization L shoulder Body Location upper traps, biceps Mobilization Type Cross-Friction,Myofascial Release,Strumming,Sustained Pressure Intensity/Depth Moderate Body Position Hooklying Comments sidelying to rhomboids Joint Mobilizations scapula Direction pro/retraction, inf glide Grade III Body Position Sidelying PT-OP-T Assessment and Plan Start: 07/03/22 10:31 Freq: Status: Active Protocol: Document 07/24/22 13:45 AMB (Rec: 07/25/22 07:34 AMB [id number]) Physical Therapy Assessment Goals Three Impairment HEP Short Term Goal (STG) Chayo will be independent and consistent with a HEP to improve her strength and ROM. STG Duration 4 weeks Two Impairment Pain Short Term Goal (STG) Chayo will ambulate for 5 minutes with 3/10 pain in her L shoulder or less. STG Duration 4 weeks Long-Term Goal (LTG) Chayo will reach up to put a plate away in a cabinet without an increase in baseline shoulder pain. LTG Duration 10 weeks One Impairment ROM Short Term Goal (STG) Chayo will improve her left shoulder flexion to 160 degrees. STG Duration 4 weeks Long-Term Goal (LTG) Chayo will improve her active shoulder abduction to at least 110 degrees. LTG Duration 10 weeks Assessment Summary Assessment Reviewed importance of scapular stabilization, better use with t band. Tolerated manual and PROM well. Encouraged Chayo to be very careful with pendulums and use scapular stabilization since she did have a painful feeling of falling out with weighted pendulums. Physical Therapy Plan Frequency and Duration Frequency of Treatment 2x/Week Duration of treatment (weeks) 10 Plan of Care Start Date 07/09/22 Plan of Care End Date 09/17/22 Therapeutic Interventions Therapeutic Interventions Gait Training,Home Exercise Program,Joint Mobilizations, Manual Therapy,Neuromuscular Re-education,Self-Care/Home Management,Therapeutic Activities,Therapeutic Exercises Modalities Cold Pack/Ice Massage,Electric Stimulation,Hot Packs Next Visit Focus/Plan Next Note Type Treatment Note Next Visit Plan POC: continue gait training to reduce UT substitution more LT stabilization, consider isometrics vs continuing to progress gentle T band
--- NOTE | 2022-07-26 14:52 | PT.OTN ---
Current Diagnoses Primary osteoarthritis, left shoulder (07/26/22) Primary osteoarthritis, unspecified shoulder (07/26/22) Unspecified rotator cuff tear or rupture of left shoulder, not specified as traumatic (07/26/22) Bicipital tendinitis, left shoulder (07/26/22) Impingement syndrome of left shoulder (07/26/22) Physical Therapy Treatment Note PT-OP-A Visit Information Start: 07/03/22 10:31 Freq: Status: Active Protocol: Document 07/26/22 13:45 SAK (Rec: 07/26/22 14:31 SAK [id number]) Out-Patient Physical Therapy Visit Information Visit Information Visit Type Treatment Note Visit Start Time 13:45 Visit Stop Time 14:27 Total Visit Minutes 42 Visit Number 6 PT-OP-B Current Condition Start: 07/03/22 10:31 Freq: Status: Active Protocol: Document 07/09/22 13:04 AMB (Rec: 07/09/22 14:28 AMB [id number]) Current Condition History of Current Condition Onset Date a few years ago Current Complaints L shoulder pain History of Current Condition Shoulder started hurting when using the walker due to avascular necrosis and hip surgery. Shoulder has been getting somewhat better with d /cing aspercreme (has excema) and the walker. Injection did help for about 3 weeks in April. Currently using SPC in L UE. Prior Treatments and Tests 1. High-grade partial- thickness tear of the distal supraspinatus tendon. There is mild supraspinatus muscle atrophy. 2. Mild infraspinatus and subscapularis tendinosis. 3. Subcoracoid bursitis. 4. Aqflmyls-ro-ddctjb glenohumeral joint degeneration. 5. Posterior labral tear with paralabral cysts. Treatment Goals Patient/Caregiver Goals Reduce pain with using SPC. Prior Functional Status Baseline Function- ADL's Independent Baseline Function- Mobility Independent Current Functional Impairments (Reported) Functional Limitations- ADL's Difficulty donning/doffing shirts/jackets. Difficulty putting dishes away in cabinets. Personal Factors Other Personal Factors That May Effect Hx ovarian, breast cancer. Hx Therapy/Recovery avascular necrosis R hip. PT-OP-C Subjective Start: 07/03/22 10:31 Freq: Status: Active Protocol: Document 07/26/22 13:45 SAK (Rec: 07/26/22 14:31 SAK [id number]) OP-PT Subjective Patient Comments Patient Comments Probably did things I shouldn' t at home, aggravate my shoulder. Still noting some improvement PT-OP-F Manual Assessment Start: 07/03/22 10:31 Freq: Status: Active Protocol: Document 07/09/22 14:57 AMB (Rec: 07/09/22 15:04 AMB [id number]) Manual Assessments Soft Tissue Assessment Soft Tissue Mobility Assessment Tenderness over anterior shoulder over biceps tendons. No tenderness noted over scapula. Audible catches is shoulder when moving in and out of abduction. PT-OP-J Posture/Palpation/Skin Start: 07/03/22 10:31 Freq: Status: Active Protocol: Document 07/09/22 14:57 AMB (Rec: 07/09/22 15:04 AMB [id number]) Posture Evaluation Comments Posture Comments Forward shoulders, pt tends to let shoulder go up into shoulder elevation when using cane or when moving arm. PT-OP-K Range of Motion Start: 07/03/22 10:31 Freq: Status: Active Protocol: Document 07/09/22 13:04 AMB (Rec: 07/09/22 14:28 AMB [id number]) Shoulder Goniometric Range of Motion Shoulder Right Active Flexion 175 Abduction 85 External Rotation at 90 degrees 60 Abduction External Rotation at 0 degrees Abduction 85 Left Active Flexion 147 Abduction 80 External Rotation at 90 degrees 25 Abduction Internal Rotation 85 PT-OP-M Strength Start: 07/03/22 10:31 Freq: Status: Active Protocol: Document 07/09/22 13:04 AMB (Rec: 07/09/22 14:28 AMB [id number]) Shoulder Strength Shoulder Manual Muscle Testing Right Flexion 3+ Fair+ Abduction (C5) 3- Fair- External Rotation 4- Good- Internal Rotation 4 Good Left Flexion 4- Good- Abduction (C5) 3- Fair- External Rotation 3+ Fair+ Internal Rotation 4 Good PT-OP-Q Treatments Start: 07/03/22 10:31 Freq: Status: Active Protocol: Document 07/26/22 13:45 SAK (Rec: 07/26/22 14:31 SAK [id number]) Therapeutic Exercises Sidelying Exercises shoulder ER Sidelying Exercise Name AAROM Reps/Minutes 10x Comments PT assist for form Sitting Exercises shld ext Equipment Used cane Reps/Minutes 5x Comments cues for pain-free ROM fwd lean Sitting Exercise Name for should flex Resistance cane, hand on top, tip on floor Equipment Used 5x Comments cues for pain-free ROM pulleys Sitting Exercise Name flexion, scaption Reps/Minutes 10x ea Comments cues for pain-free ROM Standing Exercises shoulder extension Equipment Used cane Reps/Minutes 5x Comments cues for scapula down, back, post tilt t band ER Side left Resistance TB#2 Equipment Used towel under arm Reps/Minutes 5x Comments cued scap/elbow depression, t band IR Side left Resistance TB#2 Equipment Used towel under arm Reps/Minutes 5x Comments vc and manual cues for scapular movement, inhibit UT t band rows Side bilateral Resistance TB#2 band Reps/Minutes 5x Comments vc and manual cues for scapular movement, inhibit UT Manual Therapy Treatment Soft Tissue Mobilization L shoulder Body Location upper traps, biceps Mobilization Type Cross-Friction,Myofascial Release,Strumming,Sustained Pressure Intensity/Depth Moderate Body Position Hooklying Comments sidelying to rhomboids Joint Mobilizations scapula Direction pro/retraction, inf glide Grade III Body Position Sidelying L GH Jt Direction inferior, post glide Grade II Body Position Hooklying PT-OP-T Assessment and Plan Start: 07/03/22 10:31 Freq: Status: Active Protocol: Document 07/26/22 13:45 [facility] (Rec: 07/26/22 14:31 [facility] [id number]) Physical Therapy Assessment Goals Three Impairment HEP Short Term Goal (STG) Chayo will be independent and consistent with a HEP to improve her strength and ROM. STG Duration 4 weeks Two Impairment Pain Short Term Goal (STG) Chayo will ambulate for 5 minutes with 3/10 pain in her L shoulder or less. STG Duration 4 weeks Correction Goal (LTG) Chayo will reach up to put a plate away in a cabinet without an increase in baseline shoulder pain. LTG Duration 10 weeks One Impairment ROM Short Term Goal (STG) Chayo will improve her left shoulder flexion to 160 degrees. STG Duration 4 weeks Professor [employer] Goal (LTG) Chayo will improve her active shoulder abduction to at least 110 degrees. LTG Duration 10 weeks Assessment Summary Assessment Patient demonstrated good understanding of isometric ex and expressed better tolerance vs theraband; issued HO. Moderate cues for scapular stab, don't move so far that ant scapular tilt occurs, improving scapular control noted with scapular clocks. Physical Therapy Plan Frequency and Duration Frequency of Treatment 2x/Week Duration of treatment (weeks) 10 Plan of Care Start Date 07/09/22 Plan of Care End Date 09/17/22 Therapeutic Interventions Therapeutic Interventions Gait Training,Home Exercise Program,Joint Mobilizations, Manual Therapy,Neuromuscular Re-education,Self-Care/Home Management,Therapeutic Activities,Therapeutic Exercises Modalities Cold Pack/Ice Massage,Electric Stimulation,Hot Packs Next Visit Focus/Plan Next Note Type Treatment Note Next Visit Plan POC: continue gait training to reduce UT substitution more LT stabilization, consider isometrics vs continuing to progress gentle T band
--- NOTE | 2022-07-31 14:30 | PT.OTN ---
Current Diagnoses Primary osteoarthritis, left shoulder (07/31/22) Primary osteoarthritis, unspecified shoulder (07/31/22) Unspecified rotator cuff tear or rupture of left shoulder, not specified as traumatic (07/31/22) Bicipital tendinitis, left shoulder (07/31/22) Impingement syndrome of left shoulder (07/31/22) Physical Therapy Treatment Note PT-OP-A Visit Information Start: 07/03/22 10:31 Freq: Status: Active Protocol: Document 07/31/22 13:48 SP (Rec: 07/31/22 14:32 SP [id number]) Out-Patient Physical Therapy Visit Information Visit Information Visit Type Treatment Note Visit Start Time 13:48 Visit Stop Time 14:30 Total Visit Minutes 42 Visit Number 7 Number of [employer] Visits 1 Precautions Precautions eczema on shoulder- careful with any adhesives or creams PT-OP-B Current Condition Start: 07/03/22 10:31 Freq: Status: Active Protocol: Document 07/09/22 13:04 AMB (Rec: 07/09/22 14:28 AMB [id number]) Current Condition History of Current Condition Onset Date a few years ago Current Complaints L shoulder pain History of Current Condition Shoulder started hurting when using the walker due to avascular necrosis and hip surgery. Shoulder has been getting somewhat better with d /cing aspercreme (has excema) and the walker. Injection did help for about 3 weeks in April. Currently using SPC in L UE. Prior Treatments and Tests 1. High-grade partial- thickness tear of the distal supraspinatus tendon. There is mild supraspinatus muscle atrophy. 2. Mild infraspinatus and subscapularis tendinosis. 3. Subcoracoid bursitis. 4. Afuvuuty-gm-bfyjhu glenohumeral joint degeneration. 5. Posterior labral tear with paralabral cysts. Treatment Goals Patient/Caregiver Goals Reduce pain with using SPC. Prior Functional Status Baseline Function- ADL's Independent Baseline Function- Mobility Independent Current Functional Impairments (Reported) Functional Limitations- ADL's Difficulty donning/doffing shirts/jackets. Difficulty putting dishes away in cabinets. Personal Factors Other Personal Factors That May Effect Hx ovarian, breast cancer. Hx Therapy/Recovery avascular necrosis R hip. PT-OP-C Subjective Start: 07/03/22 10:31 Freq: Status: Active Protocol: Document 07/31/22 13:48 SP (Rec: 07/31/22 14:32 SP [id number]) OP-PT Subjective Patient Comments Patient Comments Pt PT-OP-F Manual Assessment Start: 07/03/22 10:31 Freq: Status: Active Protocol: Document 07/09/22 14:57 AMB (Rec: 07/09/22 15:04 AMB [id number]) Manual Assessments Soft Tissue Assessment Soft Tissue Mobility Assessment Tenderness over anterior shoulder over biceps tendons. No tenderness noted over scapula. Audible catches is shoulder when moving in and out of abduction. PT-OP-J Posture/Palpation/Skin Start: 07/03/22 10:31 Freq: Status: Active Protocol: Document 07/09/22 14:57 AMB (Rec: 07/09/22 15:04 AMB [id number]) Posture Evaluation Comments Posture Comments Forward shoulders, pt tends to let shoulder go up into shoulder elevation when using cane or when moving arm. PT-OP-K Range of Motion Start: 07/03/22 10:31 Freq: Status: Active Protocol: Document 07/09/22 13:04 AMB (Rec: 07/09/22 14:28 AMB [id number]) Shoulder Goniometric Range of Motion Shoulder Right Active Flexion 175 Abduction 85 External Rotation at 90 degrees 60 Abduction External Rotation at 0 degrees Abduction 85 Left Active Flexion 147 Abduction 80 External Rotation at 90 degrees 25 Abduction Internal Rotation 85 PT-OP-M Strength Start: 07/03/22 10:31 Freq: Status: Active Protocol: Document 07/09/22 13:04 AMB (Rec: 07/09/22 14:28 AMB [id number]) Shoulder Strength Shoulder Manual Muscle Testing Right Flexion 3+ Fair+ Abduction (C5) 3- Fair- External Rotation 4- Good- Internal Rotation 4 Good Left Flexion 4- Good- Abduction (C5) 3- Fair- External Rotation 3+ Fair+ Internal Rotation 4 Good PT-OP-Q Treatments Start: 07/03/22 10:31 Freq: Status: Active Protocol: Document 07/31/22 13:48 SP (Rec: 07/31/22 14:32 SP [id number]) Therapeutic Exercises Supine Exercises AAROM Supine Exercise Name FF 152*, ABD 118*, ER 908, HABD Side left Resistance PROM>AROM Reps/Minutes 6 min Comments cued scap retraction, inf glide Sitting Exercises scapular depression Sitting Exercise Name shld extension, AAROM ecccentric FF Side left Reps/Minutes 5 reps x2 Comments (waiting for miya use) fwd lean Sitting Exercise Name for should flex Resistance cane, hand on top, tip on floor Equipment Used 5x Comments cues for pain-free ROM pulleys Sitting Exercise Name flexion, scaption, Abd Reps/Minutes 10x ea Comments cues for pain-free ROM Manual Therapy Treatment Soft Tissue Mobilization L shoulder Body Location upper traps, biceps, pec, deltoid Mobilization Type Cross-Friction,Myofascial Release,Strumming,Sustained Pressure Intensity/Depth Moderate Body Position Hooklying Joint Mobilizations scapula Direction pro/retraction, inf glide Grade III Body Position Sidelying L GH Jt Direction inferior, post glide Grade II Body Position Hooklying PT-OP-T Assessment and Plan Start: 07/03/22 10:31 Freq: Status: Active Protocol: Document 07/31/22 13:48 SP (Rec: 07/31/22 14:32 SP [id number]) Physical Therapy Assessment Goals Three Impairment HEP Short Term Goal (STG) Chayo will be independent and consistent with a HEP to improve her strength and ROM. STG Duration 4 weeks Two Impairment Pain Short Term Goal (STG) Chayo will ambulate for 5 minutes with 3/10 pain in her L shoulder or less. STG Duration 4 weeks Plumber'S Helper Goal (LTG) Chayo will reach up to put a plate away in a cabinet without an increase in baseline shoulder pain. LTG Duration 10 weeks One Impairment ROM Short Term Goal (STG) Chayo will improve her left shoulder flexion to 160 degrees. STG Duration 4 weeks Plumber'S Helper Goal (LTG) Chayo will improve her active shoulder abduction to at least 110 degrees. LTG Duration 10 weeks Assessment Summary Assessment Pt improved scapular depression awareness post scap depression w/TB carryover pulleys end tx. Able perform ABD today, mirror for self feedback scap depression. IMproved LUE WB w/LT facilitation awareness. Physical Therapy Plan Frequency and Duration Frequency of Treatment 2x/Week Duration of treatment (weeks) 10 Plan of Care Start Date 07/09/22 Plan of Care End Date 09/17/22 Therapeutic Interventions Therapeutic Interventions Gait Training,Home Exercise Program,Joint Mobilizations, Manual Therapy,Neuromuscular Re-education,Self-Care/Home Management,Therapeutic Activities,Therapeutic Exercises Modalities Cold Pack/Ice Massage,Electric Stimulation,Hot Packs Next Visit Focus/Plan Next Note Type Treatment Note Next Visit Plan POC: continue gait training to reduce UT substitution more LT stabilization, consider isometrics vs continuing to progress gentle T band
--- NOTE | 2022-08-02 14:44 | PT.OTN ---
Current Diagnoses Primary osteoarthritis, left shoulder (08/02/22) Primary osteoarthritis, unspecified shoulder (08/02/22) Unspecified rotator cuff tear or rupture of left shoulder, not specified as traumatic (08/02/22) Bicipital tendinitis, left shoulder (08/02/22) Impingement syndrome of left shoulder (08/02/22) Physical Therapy Treatment Note PT-OP-A Visit Information Start: 07/03/22 10:31 Freq: Status: Active Protocol: Document 08/02/22 13:45 SAK (Rec: 08/02/22 14:42 SAK [id number]) Out-Patient Physical Therapy Visit Information Visit Information Visit Type Treatment Note Visit Start Time 13:00 Visit Stop Time 13:45 Total Visit Minutes 45 Visit Number 8 Precautions Precautions eczema on shoulder- careful with any adhesives or creams PT-OP-B Current Condition Start: 07/03/22 10:31 Freq: Status: Active Protocol: Document 07/09/22 13:04 AMB (Rec: 07/09/22 14:28 AMB [id number]) Current Condition History of Current Condition Onset Date a few years ago Current Complaints L shoulder pain History of Current Condition Shoulder started hurting when using the walker due to avascular necrosis and hip surgery. Shoulder has been getting somewhat better with d /cing aspercreme (has excema) and the walker. Injection did help for about 3 weeks in April. Currently using SPC in L UE. Prior Treatments and Tests 1. High-grade partial- thickness tear of the distal supraspinatus tendon. There is mild supraspinatus muscle atrophy. 2. Mild infraspinatus and subscapularis tendinosis. 3. Subcoracoid bursitis. 4. Lnthatzk-yj-znyiqq glenohumeral joint degeneration. 5. Posterior labral tear with paralabral cysts. Treatment Goals Patient/Caregiver Goals Reduce pain with using SPC. Prior Functional Status Baseline Function- ADL's Independent Baseline Function- Mobility Independent Current Functional Impairments (Reported) Functional Limitations- ADL's Difficulty donning/doffing shirts/jackets. Difficulty putting dishes away in cabinets. Personal Factors Other Personal Factors That May Effect Hx ovarian, breast cancer. Hx Therapy/Recovery avascular necrosis R hip. PT-OP-C Subjective Start: 07/03/22 10:31 Freq: Status: Active Protocol: Document 08/02/22 13:45 SAK (Rec: 08/02/22 14:42 SAK [id number]) OP-PT Subjective Patient Comments Patient Comments Went to massage therapist yesterday, had electromagnetic treatment, states she feels different, also had treatment to hips, feels she is walking better. Patient Reported Progress Improving PT-OP-F Manual Assessment Start: 07/03/22 10:31 Freq: Status: Active Protocol: Document 07/09/22 14:57 AMB (Rec: 07/09/22 15:04 AMB [id number]) Manual Assessments Soft Tissue Assessment Soft Tissue Mobility Assessment Tenderness over anterior shoulder over biceps tendons. No tenderness noted over scapula. Audible catches is shoulder when moving in and out of abduction. PT-OP-J Posture/Palpation/Skin Start: 07/03/22 10:31 Freq: Status: Active Protocol: Document 07/09/22 14:57 AMB (Rec: 07/09/22 15:04 AMB [id number]) Posture Evaluation Comments Posture Comments Forward shoulders, pt tends to let shoulder go up into shoulder elevation when using cane or when moving arm. PT-OP-K Range of Motion Start: 07/03/22 10:31 Freq: Status: Active Protocol: Document 07/09/22 13:04 AMB (Rec: 07/09/22 14:28 AMB [id number]) Shoulder Goniometric Range of Motion Shoulder Right Active Flexion 175 Abduction 85 External Rotation at 90 degrees 60 Abduction External Rotation at 0 degrees Abduction 85 Left Active Flexion 147 Abduction 80 External Rotation at 90 degrees 25 Abduction Internal Rotation 85 PT-OP-M Strength Start: 07/03/22 10:31 Freq: Status: Active Protocol: Document 07/09/22 13:04 AMB (Rec: 07/09/22 14:28 AMB [id number]) Shoulder Strength Shoulder Manual Muscle Testing Right Flexion 3+ Fair+ Abduction (C5) 3- Fair- External Rotation 4- Good- Internal Rotation 4 Good Left Flexion 4- Good- Abduction (C5) 3- Fair- External Rotation 3+ Fair+ Internal Rotation 4 Good PT-OP-Q Treatments Start: 07/03/22 10:31 Freq: Status: Active Protocol: Document 08/02/22 13:45 SAK (Rec: 08/02/22 14:42 SAK [id number]) Therapeutic Exercises Sidelying Exercises shoulder ER Sidelying Exercise Name AAROM Reps/Minutes 10x Comments PT assist for form AAROM Sidelying Exercise Name ABD Side left Resistance AAROM Reps/Minutes 5x Comments manual cues for scapular rotaton Sitting Exercises scapular retraction Sitting Exercise Name horizontal, diagonal Side bilateral Reps/Minutes 10x2 fwd lean Sitting Exercise Name HEP pulleys Sitting Exercise Name HEP Standing Exercises shoulder isometrics Standing Exercise Name HEP Manual Therapy Treatment Soft Tissue Mobilization L shoulder Body Location upper traps, biceps, pec, deltoid Mobilization Type Cross-Friction,Myofascial Release,Strumming,Sustained Pressure Intensity/Depth Moderate Body Position Hooklying Joint Mobilizations scapula Direction pro/retraction, inf glide Grade III Body Position Sidelying L GH Jt Direction inferior, post glide Grade II Body Position Hooklying PT-OP-T Assessment and Plan Start: 07/03/22 10:31 Freq: Status: Active Protocol: Document 08/02/22 13:45 [facility] (Rec: 08/02/22 14:42 [facility] [id number]) Physical Therapy Assessment Goals Three Impairment HEP Short Term Goal (STG) Chayo will be independent and consistent with a HEP to improve her strength and ROM. STG Duration goal met, ongoing progression Flight Test Data Acquisition Technician Goal (LTG) Patient to demonstrate at least 4+/5 muscle strength and ROM WNL to allow her to return to all prior activities LTG Duration 10 weeks Two Impairment Pain Short Term Goal (STG) Chayo will ambulate for 5 minutes with 3/10 pain in her L shoulder or less. STG Duration goal met Senior Care Goal (LTG) Chayo will reach up to put a plate away in a cabinet without an increase in baseline shoulder pain. 08/02/21: improved ability to reach overhead with mild inc pain, low javier for lifting anything with weight LTG Duration 10 weeks One Impairment ROM Short Term Goal (STG) Chayo will improve her left shoulder flexion to 160 degrees. 08/02/22: goal progress, improved to STG Duration 4 weeks Flight Test Data Acquisition Technician Goal (LTG) Chayo will improve her active shoulder abduction to at least 110 degrees. LTG Duration 10 weeks Assessment Summary Assessment Pain not constant anymore, worst at 4/10 when reaching overhead or out to side especially with weight. Compliant to HEP as instructed by PT. States at least 15% better. Seeing Dr. Rashid tomorrow. Feel she would benefit from further PT for continued ROM, strengthening, patient education, manual techniques for left shoulder. Left shoulder AAROM FF 152*, ABD 118*, ER 80*, HABD 90* Physical Therapy Plan Frequency and Duration Frequency of Treatment 2x/Week Duration of treatment (weeks) 10 Plan of Care Start Date 07/09/22 Plan of Care End Date 09/17/22 Therapeutic Interventions Therapeutic Interventions Gait Training,Home Exercise Program,Joint Mobilizations, Manual Therapy,Neuromuscular Re-education,Self-Care/Home Management,Therapeutic Activities,Therapeutic Exercises Modalities Cold Pack/Ice Massage,Electric Stimulation,Hot Packs Next Visit Focus/Plan Next Note Type Treatment Note Next Visit Plan Continue left shoulder rehab focused on postural correction , scapulohumeral rhythm, ROM, and strengthening to improve shoulder function and decrease pain.
--- NOTE | 2022-08-07 14:31 | PT.OTN ---
Current Diagnoses Primary osteoarthritis, left shoulder (08/07/22) Primary osteoarthritis, unspecified shoulder (08/07/22) Unspecified rotator cuff tear or rupture of left shoulder, not specified as traumatic (08/07/22) Bicipital tendinitis, left shoulder (08/07/22) Impingement syndrome of left shoulder (08/07/22) Physical Therapy Treatment Note PT-OP-A Visit Information Start: 07/03/22 10:31 Freq: Status: Active Protocol: Document 08/07/22 13:46 SAK (Rec: 08/07/22 14:31 SAK [id number]) Out-Patient Physical Therapy Visit Information Visit Information Visit Type Treatment Note Visit Start Time 13:45 Visit Stop Time 14:45 Total Visit Minutes 60 Visit Number 9 Precautions Precautions eczema on shoulder- careful with any adhesives or creams PT-OP-B Current Condition Start: 07/03/22 10:31 Freq: Status: Active Protocol: Document 07/09/22 13:04 AMB (Rec: 07/09/22 14:28 AMB [id number]) Current Condition History of Current Condition Onset Date a few years ago Current Complaints L shoulder pain History of Current Condition Shoulder started hurting when using the walker due to avascular necrosis and hip surgery. Shoulder has been getting somewhat better with d /cing aspercreme (has excema) and the walker. Injection did help for about 3 weeks in April. Currently using SPC in L UE. Prior Treatments and Tests 1. High-grade partial- thickness tear of the distal supraspinatus tendon. There is mild supraspinatus muscle atrophy. 2. Mild infraspinatus and subscapularis tendinosis. 3. Subcoracoid bursitis. 4. Tusrzyug-ok-atogrp glenohumeral joint degeneration. 5. Posterior labral tear with paralabral cysts. Treatment Goals Patient/Caregiver Goals Reduce pain with using SPC. Prior Functional Status Baseline Function- ADL's Independent Baseline Function- Mobility Independent Current Functional Impairments (Reported) Functional Limitations- ADL's Difficulty donning/doffing shirts/jackets. Difficulty putting dishes away in cabinets. Personal Factors Other Personal Factors That May Effect Hx ovarian, breast cancer. Hx Therapy/Recovery avascular necrosis R hip. PT-OP-C Subjective Start: 07/03/22 10:31 Freq: Status: Active Protocol: Document 08/02/22 13:45 SAK (Rec: 08/02/22 14:42 SAK [id number]) OP-PT Subjective Patient Comments Patient Comments Went to massage therapist yesterday, had electromagnetic treatment, states she feels different, also had treatment to hips, feels she is walking better. Patient Reported Progress Improving PT-OP-F Manual Assessment Start: 07/03/22 10:31 Freq: Status: Active Protocol: Document 07/09/22 14:57 AMB (Rec: 07/09/22 15:04 AMB [id number]) Manual Assessments Soft Tissue Assessment Soft Tissue Mobility Assessment Tenderness over anterior shoulder over biceps tendons. No tenderness noted over scapula. Audible catches is shoulder when moving in and out of abduction. PT-OP-J Posture/Palpation/Skin Start: 07/03/22 10:31 Freq: Status: Active Protocol: Document 07/09/22 14:57 AMB (Rec: 07/09/22 15:04 AMB [id number]) Posture Evaluation Comments Posture Comments Forward shoulders, pt tends to let shoulder go up into shoulder elevation when using cane or when moving arm. PT-OP-K Range of Motion Start: 07/03/22 10:31 Freq: Status: Active Protocol: Document 07/09/22 13:04 AMB (Rec: 07/09/22 14:28 AMB [id number]) Shoulder Goniometric Range of Motion Shoulder Right Active Flexion 175 Abduction 85 External Rotation at 90 degrees 60 Abduction External Rotation at 0 degrees Abduction 85 Left Active Flexion 147 Abduction 80 External Rotation at 90 degrees 25 Abduction Internal Rotation 85 PT-OP-M Strength Start: 07/03/22 10:31 Freq: Status: Active Protocol: Document 07/09/22 13:04 AMB (Rec: 07/09/22 14:28 AMB [id number]) Shoulder Strength Shoulder Manual Muscle Testing Right Flexion 3+ Fair+ Abduction (C5) 3- Fair- External Rotation 4- Good- Internal Rotation 4 Good Left Flexion 4- Good- Abduction (C5) 3- Fair- External Rotation 3+ Fair+ Internal Rotation 4 Good PT-OP-Q Treatments Start: 07/03/22 10:31 Freq: Status: Active Protocol: Document 08/07/22 13:46 SAK (Rec: 08/07/22 14:31 SAK [id number]) Therapeutic Exercises Supine Exercises AAROM Supine Exercise Name FF 152*, ABD 118*, ER 908, HABD Side left Resistance PROM>AAROM Reps/Minutes 6 min Comments cued scap retraction, inf glide Sidelying Exercises shoulder ER Sidelying Exercise Name AAROM Reps/Minutes 10x Comments PT assist for form scapular clocks Sidelying Exercise Name 3, 4, 5:00 Reps/Minutes 5x2 with manual resistance AAROM Sidelying Exercise Name ABD Side left Resistance AAROM Reps/Minutes 10x Comments manual cues for scapular rotaton Sitting Exercises posterior capsule stretch Reps/Minutes 2x30 scapular depression Sitting Exercise Name shld extension, AAROM ecccentric FF Side left Reps/Minutes 5 reps x2 Comments (waiting for miya use) pulleys Sitting Exercise Name flexion, scaption, Abd Reps/Minutes 10x ea Comments cues for pain-free ROM, thumb up Manual Therapy Treatment Soft Tissue Mobilization L shoulder Body Location upper traps, biceps, pec, deltoid Mobilization Type Cross-Friction,Myofascial Release,Strumming,Sustained Pressure Intensity/Depth Moderate Body Position Hooklying Joint Mobilizations scapula Direction pro/retraction, inf glide Grade III Body Position Sidelying L GH Jt Direction inferior, post glide Grade II Body Position Hooklying PT-OP-T Assessment and Plan Start: 07/03/22 10:31 Freq: Status: Active Protocol: Document 08/07/22 13:46 [facility] (Rec: 08/07/22 14:31 [facility] [id number]) Physical Therapy Assessment Goals Three Impairment HEP Short Term Goal (STG) Chayo will be independent and consistent with a HEP to improve her strength and ROM. STG Duration goal met, ongoing progression Halfway Goal (LTG) Patient to demonstrate at least 4+/5 muscle strength and ROM WNL to allow her to return to all prior activities LTG Duration 10 weeks Two Impairment Pain Short Term Goal (STG) Chayo will ambulate for 5 minutes with 3/10 pain in her L shoulder or less. STG Duration goal met Rf Design Engineer Goal (LTG) Chayo will reach up to put a plate away in a cabinet without an increase in baseline shoulder pain. 08/02/21: improved ability to reach overhead with mild inc pain, low javier for lifting anything with weight LTG Duration 10 weeks One Impairment ROM Short Term Goal (STG) Chayo will improve her left shoulder flexion to 160 degrees. 08/02/22: goal progress, improved to STG Duration 4 weeks Halfway Goal (LTG) Chayo will improve her active shoulder abduction to at least 110 degrees. LTG Duration 10 weeks Assessment Summary Assessment Decreased pain with manual techniques. Dr. Rashid recommended continue PT. Trial supine shoulder flexion with wand but patient unable to do without pain. Compliant to HEP Physical Therapy Plan Frequency and Duration Frequency of Treatment 2x/Week Duration of treatment (weeks) 10 Plan of Care Start Date 07/09/22 Plan of Care End Date 09/17/22 Therapeutic Interventions Therapeutic Interventions Gait Training,Home Exercise Program,Joint Mobilizations, Manual Therapy,Neuromuscular Re-education,Self-Care/Home Management,Therapeutic Activities,Therapeutic Exercises Modalities Cold Pack/Ice Massage,Electric Stimulation,Hot Packs Next Visit Focus/Plan Next Note Type Progress Note Next Visit Plan Continue left shoulder rehab focused on postural correction , scapulohumeral rhythm, ROM, and strengthening to improve shoulder function and decrease pain.
--- NOTE | 2022-08-14 13:45 | PT.OTN ---
Current Diagnoses Primary osteoarthritis, left shoulder (08/14/22) Primary osteoarthritis, unspecified shoulder (08/14/22) Unspecified rotator cuff tear or rupture of left shoulder, not specified as traumatic (08/14/22) Bicipital tendinitis, left shoulder (08/14/22) Impingement syndrome of left shoulder (08/14/22) Physical Therapy Treatment Note PT-OP-A Visit Information Start: 07/03/22 10:31 Freq: Status: Active Protocol: Document 08/14/22 13:07 SP (Rec: 08/14/22 14:04 SP [id number]) Out-Patient Physical Therapy Visit Information Visit Information Visit Type Treatment Note Visit Start Time 13:07 Visit Stop Time 13:45 Total Visit Minutes 38 Visit Number 10 Number of TEMPORARY HELP AGENCY REFERRAL CLERK Visits 1 Precautions Precautions eczema on shoulder- careful with any adhesives or creams PT-OP-B Current Condition Start: 07/03/22 10:31 Freq: Status: Active Protocol: Document 07/09/22 13:04 AMB (Rec: 07/09/22 14:28 AMB [id number]) Current Condition History of Current Condition Onset Date a few years ago Current Complaints L shoulder pain History of Current Condition Shoulder started hurting when using the walker due to avascular necrosis and hip surgery. Shoulder has been getting somewhat better with d /cing aspercreme (has excema) and the walker. Injection did help for about 3 weeks in April. Currently using SPC in L UE. Prior Treatments and Tests 1. High-grade partial- thickness tear of the distal supraspinatus tendon. There is mild supraspinatus muscle atrophy. 2. Mild infraspinatus and subscapularis tendinosis. 3. Subcoracoid bursitis. 4. Rbwhmsdl-wi-gjnepa glenohumeral joint degeneration. 5. Posterior labral tear with paralabral cysts. Treatment Goals Patient/Caregiver Goals Reduce pain with using SPC. Prior Functional Status Baseline Function- ADL's Independent Baseline Function- Mobility Independent Current Functional Impairments (Reported) Functional Limitations- ADL's Difficulty donning/doffing shirts/jackets. Difficulty putting dishes away in cabinets. Personal Factors Other Personal Factors That May Effect Hx ovarian, breast cancer. Hx Therapy/Recovery avascular necrosis R hip. PT-OP-C Subjective Start: 07/03/22 10:31 Freq: Status: Active Protocol: Document 08/14/22 13:07 SP (Rec: 08/14/22 14:04 SP [id number]) OP-PT Subjective Patient Comments Patient Comments Pt reports can reach back and OH with putting away dishes better. She feel is getting good results from electromagnetic treatment on L shld. PT-OP-F Manual Assessment Start: 07/03/22 10:31 Freq: Status: Active Protocol: Document 07/09/22 14:57 AMB (Rec: 07/09/22 15:04 AMB [id number]) Manual Assessments Soft Tissue Assessment Soft Tissue Mobility Assessment Tenderness over anterior shoulder over biceps tendons. No tenderness noted over scapula. Audible catches is shoulder when moving in and out of abduction. PT-OP-J Posture/Palpation/Skin Start: 07/03/22 10:31 Freq: Status: Active Protocol: Document 07/09/22 14:57 AMB (Rec: 07/09/22 15:04 AMB [id number]) Posture Evaluation Comments Posture Comments Forward shoulders, pt tends to let shoulder go up into shoulder elevation when using cane or when moving arm. PT-OP-K Range of Motion Start: 07/03/22 10:31 Freq: Status: Active Protocol: Document 07/09/22 13:04 AMB (Rec: 07/09/22 14:28 AMB [id number]) Shoulder Goniometric Range of Motion Shoulder Right Active Flexion 175 Abduction 85 External Rotation at 90 degrees 60 Abduction External Rotation at 0 degrees Abduction 85 Left Active Flexion 147 Abduction 80 External Rotation at 90 degrees 25 Abduction Internal Rotation 85 PT-OP-M Strength Start: 07/03/22 10:31 Freq: Status: Active Protocol: Document 07/09/22 13:04 AMB (Rec: 07/09/22 14:28 AMB [id number]) Shoulder Strength Shoulder Manual Muscle Testing Right Flexion 3+ Fair+ Abduction (C5) 3- Fair- External Rotation 4- Good- Internal Rotation 4 Good Left Flexion 4- Good- Abduction (C5) 3- Fair- External Rotation 3+ Fair+ Internal Rotation 4 Good PT-OP-Q Treatments Start: 07/03/22 10:31 Freq: Status: Active Protocol: Document 08/14/22 13:07 SP (Rec: 08/14/22 14:04 SP [id number]) Therapeutic Exercises Supine Exercises scaption Supine Exercise Name scaption (PNF D2 flexion/ extension) Side left Resistance AAROM>AROM Reps/Minutes 2x 4 reps total Comments cued slow pacing concentric/ eccentric return AAROM Supine Exercise Name FF 151*, ABD 171* 5%A, ER 92* Side left Resistance AROM Reps/Minutes 6 min Comments good form Sitting Exercises scaption Sitting Exercise Name added toHEP Side left Resistance AROM Reps/Minutes x6 reps Comments cued no UT recruitment HABD Sitting Exercise Name added to HEP Side bilateral Resistance AROM Reps/Minutes x6 reps Comments cued no UT recruitment scapular retraction Side bilateral Resistance TB #1 scap retraction, AROM HAB, diagonal Reps/Minutes 3 SH x10 Comments good form, limited ER strength just resisted scap retract. Manual Therapy Treatment Soft Tissue Mobilization L shoulder Body Location upper traps, biceps, pec, deltoid Mobilization Type Cross-Friction,Myofascial Release,Strumming,Sustained Pressure Intensity/Depth Moderate Body Position Hooklying Joint Mobilizations L GH Jt Direction inferior, post glide Grade II Body Position Hooklying Manual Techniques PROM L shld Type L shld: FF, ABD, ER w/ ABD, ER Body Position Hooklying Comments manual and PT-OP-T Assessment and Plan Start: 07/03/22 10:31 Freq: Status: Active Protocol: Document 08/14/22 13:07 SP (Rec: 08/14/22 14:04 SP [id number]) Physical Therapy Assessment Goals Three Impairment HEP Short Term Goal (STG) Chayo will be independent and consistent with a HEP to improve her strength and ROM. STG Duration goal met, ongoing progression Bracelet And Brooch Maker Goal (LTG) Patient to demonstrate at least 4+/5 muscle strength and ROM WNL to allow her to return to all prior activities 08/14/22: added seated FF, HABD , Scaption, scapiton supine. LTG Duration 10 weeks progressing 08/14/22 Two Impairment Pain Short Term Goal (STG) Chayo will ambulate for 5 minutes with 3/10 pain in her L shoulder or less. STG Duration goal met Bracelet And Brooch Maker Goal (LTG) Chayo will reach up to put a plate away in a cabinet without an increase in baseline shoulder pain. 08/02/21: improved ability to reach overhead with mild inc pain, low javier for lifting anything with weight LTG Duration 10 weeks One Impairment ROM Short Term Goal (STG) Chayo will improve her left shoulder flexion to 160 degrees. 08/02/22: goal progress, improved to STG Duration 4 weeks Bracelet And Brooch Maker Goal (LTG) Chayo will improve her active shoulder abduction to at least 110 degrees. 08/14/22: seated 92 deg (AROM), supine 172 deg (AAROM) LTG Duration 10 weeks progressing 08/14/22 Assessment Summary Assessment Pt reported feels making gains in ROM. Able to reach out scaption ROM light contact as needed supine which is progressing able to reach put away dishes. Physical Therapy Plan Frequency and Duration Frequency of Treatment 2x/Week Duration of treatment (weeks) 10 Plan of Care Start Date 07/09/22 Plan of Care End Date 09/17/22 Therapeutic Interventions Therapeutic Interventions Gait Training,Home Exercise Program,Joint Mobilizations, Manual Therapy,Neuromuscular Re-education,Self-Care/Home Management,Therapeutic Activities,Therapeutic Exercises Modalities Cold Pack/Ice Massage,Electric Stimulation,Hot Packs Next Visit Focus/Plan Next Note Type Treatment Note Next Visit Plan Recheck HEP: resisted scaption , FF/ABD/ER supine/seated. POC: Continue left shoulder rehab focused on postural correction, scapulohumeral rhythm, ROM, and strengthening to improve shoulder function and decrease pain.
--- NOTE | 2022-08-17 15:15 | PT.OTN ---
Current Diagnoses Primary osteoarthritis, left shoulder (08/17/22) Primary osteoarthritis, unspecified shoulder (08/17/22) Unspecified rotator cuff tear or rupture of left shoulder, not specified as traumatic (08/17/22) Bicipital tendinitis, left shoulder (08/17/22) Impingement syndrome of left shoulder (08/17/22) Physical Therapy Treatment Note PT-OP-A Visit Information Start: 07/03/22 10:31 Freq: Status: Active Protocol: Document 08/17/22 14:31 SP (Rec: 08/17/22 15:42 SP [id number]) Out-Patient Physical Therapy Visit Information Visit Information Visit Type Treatment Note Visit Start Time 14:31 Visit Stop Time 15:15 Total Visit Minutes 44 Visit Number 11 Number of MANAGING PARTNER Visits 2 Precautions Precautions eczema on shoulder/ hand- careful with any adhesives or creams PT-OP-B Current Condition Start: 07/03/22 10:31 Freq: Status: Active Protocol: Document 07/09/22 13:04 AMB (Rec: 07/09/22 14:28 AMB [id number]) Current Condition History of Current Condition Onset Date a few years ago Current Complaints L shoulder pain History of Current Condition Shoulder started hurting when using the walker due to avascular necrosis and hip surgery. Shoulder has been getting somewhat better with d /cing aspercreme (has excema) and the walker. Injection did help for about 3 weeks in April. Currently using SPC in L UE. Prior Treatments and Tests 1. High-grade partial- thickness tear of the distal supraspinatus tendon. There is mild supraspinatus muscle atrophy. 2. Mild infraspinatus and subscapularis tendinosis. 3. Subcoracoid bursitis. 4. Whorqchf-qc-rylvxi glenohumeral joint degeneration. 5. Posterior labral tear with paralabral cysts. Treatment Goals Patient/Caregiver Goals Reduce pain with using SPC. Prior Functional Status Baseline Function- ADL's Independent Baseline Function- Mobility Independent Current Functional Impairments (Reported) Functional Limitations- ADL's Difficulty donning/doffing shirts/jackets. Difficulty putting dishes away in cabinets. Personal Factors Other Personal Factors That May Effect Hx ovarian, breast cancer. Hx Therapy/Recovery avascular necrosis R hip. PT-OP-C Subjective Start: 07/03/22 10:31 Freq: Status: Active Protocol: Document 08/17/22 14:31 SP (Rec: 08/17/22 15:42 SP [id number]) OP-PT Subjective Patient Comments Patient Comments Pt report what we did last time worked really well. Want to start with manual first. PT-OP-F Manual Assessment Start: 07/03/22 10:31 Freq: Status: Active Protocol: Document 07/09/22 14:57 AMB (Rec: 07/09/22 15:04 AMB [id number]) Manual Assessments Soft Tissue Assessment Soft Tissue Mobility Assessment Tenderness over anterior shoulder over biceps tendons. No tenderness noted over scapula. Audible catches is shoulder when moving in and out of abduction. PT-OP-J Posture/Palpation/Skin Start: 07/03/22 10:31 Freq: Status: Active Protocol: Document 07/09/22 14:57 AMB (Rec: 07/09/22 15:04 AMB [id number]) Posture Evaluation Comments Posture Comments Forward shoulders, pt tends to let shoulder go up into shoulder elevation when using cane or when moving arm. PT-OP-K Range of Motion Start: 07/03/22 10:31 Freq: Status: Active Protocol: Document 07/09/22 13:04 AMB (Rec: 07/09/22 14:28 AMB [id number]) Shoulder Goniometric Range of Motion Shoulder Right Active Flexion 175 Abduction 85 External Rotation at 90 degrees 60 Abduction External Rotation at 0 degrees Abduction 85 Left Active Flexion 147 Abduction 80 External Rotation at 90 degrees 25 Abduction Internal Rotation 85 PT-OP-M Strength Start: 07/03/22 10:31 Freq: Status: Active Protocol: Document 07/09/22 13:04 AMB (Rec: 07/09/22 14:28 AMB [id number]) Shoulder Strength Shoulder Manual Muscle Testing Right Flexion 3+ Fair+ Abduction (C5) 3- Fair- External Rotation 4- Good- Internal Rotation 4 Good Left Flexion 4- Good- Abduction (C5) 3- Fair- External Rotation 3+ Fair+ Internal Rotation 4 Good PT-OP-Q Treatments Start: 07/03/22 10:31 Freq: Status: Active Protocol: Document 08/17/22 14:31 SP (Rec: 08/17/22 15:42 SP [id number]) Therapeutic Exercises Supine Exercises serratus press Supine Exercise Name added to HEP Side left Resistance #1 DB Reps/Minutes x10 Comments good scap ROM, painfree L shld ER Supine Exercise Name added to HEP Side left Resistance #1 DB Reps/Minutes x10 Comments cued keep elbow close to side scaption Supine Exercise Name scaption (PNF D2 flexion) Side left Resistance AAROM x5>AROM Reps/Minutes 2x5 reps Comments cued slow pacing concentric/ eccentric return- good tiring Sitting Exercises scaption Sitting Exercise Name Reviewed for HEP Side left Resistance AROM Reps/Minutes x4 reps post manual and AAROM 5 reps Comments cued no UT recruitment, tolerant range shld ext Sitting Exercise Name concentric extension/pull down , eccentric FF OH Side left Resistance TB #1 Equipment Used mesh chair Reps/Minutes 5x Comments cues for pain-free ROM Standing Exercises rail walking Standing Exercise Name added to HEP- lateral Resistance TB #1 Equipment Used walking along rail Reps/Minutes 10 ft x 1 lap Comments cued tall posture, slow adduction Standing Exercise Name added to HEP Side left Resistance Tb #1 Reps/Minutes x10 Comments cued eccentric control, aware infer glide humer head t band IR Standing Exercise Name concentric IR, eccentric ER Side left Resistance TB#1 Reps/Minutes x10 Comments cues for elbow at side, slow eccentric ERinhibit UT wall walk Side bilateral Reps/Minutes 2x5 Comments fwd Manual Therapy Treatment Soft Tissue Mobilization L shoulder Body Location upper traps, biceps, pec, deltoid, distal infrasp Mobilization Type Cross-Friction,Myofascial Release,Strumming,Sustained Pressure Intensity/Depth Moderate Body Position Hooklying Joint Mobilizations L GH Jt Direction inferior, post glide Grade II Body Position Hooklying Manual Techniques PROM L shld Type L shld: FF, ABD, ER w/ ABD, ER Body Position Hooklying Comments manual PT-OP-T Assessment and Plan Start: 07/03/22 10:31 Freq: Status: Active Protocol: Document 08/17/22 14:31 SP (Rec: 08/17/22 15:42 SP [id number]) Physical Therapy Assessment Goals Three Impairment HEP Short Term Goal (STG) Chayo will be independent and consistent with a HEP to improve her strength and ROM. STG Duration goal met, ongoing progression Sql Report Developer Goal (LTG) Patient to demonstrate at least 4+/5 muscle strength and ROM WNL to allow her to return to all prior activities 08/14/22: added seated FF, HABD , supine scaption. 08/17/22: added resisted add, lateral counter walking, supine resisted ER and serratus press LTG Duration 10 weeks progressing 08/17/22 Two Impairment Pain Short Term Goal (STG) Chayo will ambulate for 5 minutes with 3/10 pain in her L shoulder or less. STG Duration goal met Sql Report Developer Goal (LTG) Chayo will reach up to put a plate away in a cabinet without an increase in baseline shoulder pain. 08/02/21: improved ability to reach overhead with mild inc pain, low javier for lifting anything with weight LTG Duration 10 weeks One Impairment ROM Short Term Goal (STG) Chayo will improve her left shoulder flexion to 160 degrees. 08/02/22: goal progress, improved to STG Duration 4 weeks Sql Report Developer Goal (LTG) Chayo will improve her active shoulder abduction to at least 110 degrees. 08/14/22: seated 92 deg (AROM), supine 172 deg (AAROM) LTG Duration 10 weeks progressing 08/14/22 Assessment Summary Assessment Pt good feedback response muscle tiring throughout exercise today. Cues as needed for no UT/shoulder elevation during over head and eccentric open chain directioning. No adverse affect to added resisted add, lateral counter walking, supine resisted ER and serratus press. Physical Therapy Plan Frequency and Duration Frequency of Treatment 2x/Week Duration of treatment (weeks) 10 Plan of Care Start Date 07/09/22 Plan of Care End Date 09/17/22 Therapeutic Interventions Therapeutic Interventions Gait Training,Home Exercise Program,Joint Mobilizations, Manual Therapy,Neuromuscular Re-education,Self-Care/Home Management,Therapeutic Activities,Therapeutic Exercises Modalities Cold Pack/Ice Massage,Electric Stimulation,Hot Packs Next Visit Focus/Plan Next Note Type Treatment Note Next Visit Plan Continue progress OH ROM to allow reach into cabinet. Review HEP: see if need condensed. POC: Continue left shoulder rehab focused on postural correction, scapulohumeral rhythm, ROM, and strengthening to improve shoulder function and decrease pain.
--- NOTE | 2022-08-20 13:47 | PT.OTN ---
Current Diagnoses Primary osteoarthritis, left shoulder (08/20/22) Primary osteoarthritis, unspecified shoulder (08/20/22) Unspecified rotator cuff tear or rupture of left shoulder, not specified as traumatic (08/20/22) Bicipital tendinitis, left shoulder (08/20/22) Impingement syndrome of left shoulder (08/20/22) Physical Therapy Treatment Note PT-OP-A Visit Information Start: 07/03/22 10:31 Freq: Status: Active Protocol: Document 08/20/22 13:06 SP (Rec: 08/20/22 13:49 SP [id number]) Out-Patient Physical Therapy Visit Information Visit Information Visit Type Treatment Note Visit Start Time 13:06 Visit Stop Time 13:47 Total Visit Minutes 41 Visit Number 12 Number of SCIENCE INSTRUCTOR Visits 3 Precautions Precautions eczema on shoulder/ hand- careful with any adhesives or creams PT-OP-B Current Condition Start: 07/03/22 10:31 Freq: Status: Active Protocol: Document 07/09/22 13:04 AMB (Rec: 07/09/22 14:28 AMB [id number]) Current Condition History of Current Condition Onset Date a few years ago Current Complaints L shoulder pain History of Current Condition Shoulder started hurting when using the walker due to avascular necrosis and hip surgery. Shoulder has been getting somewhat better with d /cing aspercreme (has excema) and the walker. Injection did help for about 3 weeks in April. Currently using SPC in L UE. Prior Treatments and Tests 1. High-grade partial- thickness tear of the distal supraspinatus tendon. There is mild supraspinatus muscle atrophy. 2. Mild infraspinatus and subscapularis tendinosis. 3. Subcoracoid bursitis. 4. Jdvcjgbh-hv-olnzfu glenohumeral joint degeneration. 5. Posterior labral tear with paralabral cysts. Treatment Goals Patient/Caregiver Goals Reduce pain with using SPC. Prior Functional Status Baseline Function- ADL's Independent Baseline Function- Mobility Independent Current Functional Impairments (Reported) Functional Limitations- ADL's Difficulty donning/doffing shirts/jackets. Difficulty putting dishes away in cabinets. Personal Factors Other Personal Factors That May Effect Hx ovarian, breast cancer. Hx Therapy/Recovery avascular necrosis R hip. PT-OP-C Subjective Start: 07/03/22 10:31 Freq: Status: Active Protocol: Document 08/20/22 13:06 SP (Rec: 08/20/22 13:49 SP [id number]) OP-PT Subjective Patient Comments Patient Comments Pt reports was sore after last tx, think did to much in PT. PT-OP-F Manual Assessment Start: 07/03/22 10:31 Freq: Status: Active Protocol: Document 07/09/22 14:57 AMB (Rec: 07/09/22 15:04 AMB [id number]) Manual Assessments Soft Tissue Assessment Soft Tissue Mobility Assessment Tenderness over anterior shoulder over biceps tendons. No tenderness noted over scapula. Audible catches is shoulder when moving in and out of abduction. PT-OP-J Posture/Palpation/Skin Start: 07/03/22 10:31 Freq: Status: Active Protocol: Document 07/09/22 14:57 AMB (Rec: 07/09/22 15:04 AMB [id number]) Posture Evaluation Comments Posture Comments Forward shoulders, pt tends to let shoulder go up into shoulder elevation when using cane or when moving arm. PT-OP-K Range of Motion Start: 07/03/22 10:31 Freq: Status: Active Protocol: Document 07/09/22 13:04 AMB (Rec: 07/09/22 14:28 AMB [id number]) Shoulder Goniometric Range of Motion Shoulder Right Active Flexion 175 Abduction 85 External Rotation at 90 degrees 60 Abduction External Rotation at 0 degrees Abduction 85 Left Active Flexion 147 Abduction 80 External Rotation at 90 degrees 25 Abduction Internal Rotation 85 PT-OP-M Strength Start: 07/03/22 10:31 Freq: Status: Active Protocol: Document 07/09/22 13:04 AMB (Rec: 07/09/22 14:28 AMB [id number]) Shoulder Strength Shoulder Manual Muscle Testing Right Flexion 3+ Fair+ Abduction (C5) 3- Fair- External Rotation 4- Good- Internal Rotation 4 Good Left Flexion 4- Good- Abduction (C5) 3- Fair- External Rotation 3+ Fair+ Internal Rotation 4 Good PT-OP-Q Treatments Start: 07/03/22 10:31 Freq: Status: Active Protocol: Document 08/20/22 13:06 SP (Rec: 08/20/22 13:49 SP [id number]) Therapeutic Exercises Supine Exercises serratus press Supine Exercise Name HEP Side left Resistance #1 DB> AROM 3/6 Reps/Minutes x10 Comments good scap ROM, painfree L shld ER Supine Exercise Name reviewed HEP Side left Resistance #1 DB Reps/Minutes x10 Comments good elbow at side- little irritation last couple reps Sitting Exercises shld ext Sitting Exercise Name concentric extension/pull down , eccentric FF OH Side left Resistance TB #1 Equipment Used mesh chair, mirror for self feedback no UT recruitment Reps/Minutes 5x Comments cues for no UT recruitment, had stop due pain crepitus in L shld pulleys Sitting Exercise Name flexion, scaption, Abd Equipment Used *08/20/22 trialed IR behind back limited so DC Reps/Minutes 10x ea direction Comments cues for pain-free ROM, thumb up Standing Exercises rail walking Standing Exercise Name DC'd pt thinks was to much after PT tx Resistance TB #1 Equipment Used walking along rail Reps/Minutes 10 ft x 1 lap Comments cued tall posture, slow adduction Standing Exercise Name HEP reviewed Side left Resistance Tb #1 Reps/Minutes x10 Comments cued eccentric control, aware infer glide humer head Manual Therapy Treatment Soft Tissue Mobilization L shoulder Body Location upper traps, biceps, pec, deltoid, distal infrasp Mobilization Type Cross-Friction,Myofascial Release,Strumming,Sustained Pressure Intensity/Depth Moderate Body Position Hooklying Joint Mobilizations L GH Jt Direction inferior, post glide Grade II Body Position Hooklying Manual Techniques PROM L shld Type L shld: FF, ABD, ER w/ ABD, ER Body Position Hooklying Comments manual PT-OP-T Assessment and Plan Start: 07/03/22 10:31 Freq: Status: Active Protocol: Document 08/20/22 13:06 SP (Rec: 08/20/22 13:49 SP [id number]) Physical Therapy Assessment Goals Three Impairment HEP Short Term Goal (STG) Chayo will be independent and consistent with a HEP to improve her strength and ROM. STG Duration goal met, ongoing progression Aircraft Landing Gear Inspector Goal (LTG) Patient to demonstrate at least 4+/5 muscle strength and ROM WNL to allow her to return to all prior activities 08/14/22: added seated FF, HABD , supine scaption. 08/17/22: added resisted add, lateral counter walking, supine resisted ER and serratus press LTG Duration 10 weeks progressing 08/17/22 Two Impairment Pain Short Term Goal (STG) Chayo will ambulate for 5 minutes with 3/10 pain in her L shoulder or less. STG Duration goal met Intermediate Goal (LTG) Chayo will reach up to put a plate away in a cabinet without an increase in baseline shoulder pain. 08/02/21: improved ability to reach overhead with mild inc pain, low javier for lifting anything with weight LTG Duration 10 weeks One Impairment ROM Short Term Goal (STG) Chayo will improve her left shoulder flexion to 160 degrees. 08/02/22: goal progress, improved to STG Duration 4 weeks Intermediate Goal (LTG) Chayo will improve her active shoulder abduction to at least 110 degrees. 08/14/22: seated 92 deg (AROM), supine 172 deg (AAROM) LTG Duration 10 weeks progressing 08/14/22 Assessment Summary Assessment Pt responded well to manual and resisted adduction/ eccentric abd and serratus press supine this tx. Cued slow pacing control and awareness of humeral inferior glide as needed allowed less tension abd crepitus feeling inside L GH Jt. Physical Therapy Plan Frequency and Duration Frequency of Treatment 2x/Week Duration of treatment (weeks) 10 Plan of Care Start Date 07/09/22 Plan of Care End Date 09/17/22 Therapeutic Interventions Therapeutic Interventions Gait Training,Home Exercise Program,Joint Mobilizations, Manual Therapy,Neuromuscular Re-education,Self-Care/Home Management,Therapeutic Activities,Therapeutic Exercises Modalities Cold Pack/Ice Massage,Electric Stimulation,Hot Packs Next Visit Focus/Plan Next Note Type Treatment Note Next Visit Plan Continue progress OH ROM to allow reach into cabinet. Review HEP: see if need condensed. POC: Continue left shoulder rehab focused on postural correction, scapulohumeral rhythm, ROM, and strengthening to improve shoulder function and decrease pain.
--- NOTE | 2022-08-22 13:53 | PT.OTN ---
Current Diagnoses Primary osteoarthritis, left shoulder (08/22/22) Primary osteoarthritis, unspecified shoulder (08/22/22) Unspecified rotator cuff tear or rupture of left shoulder, not specified as traumatic (08/22/22) Bicipital tendinitis, left shoulder (08/22/22) Impingement syndrome of left shoulder (08/22/22) Physical Therapy Treatment Note PT-OP-A Visit Information Start: 07/03/22 10:31 Freq: Status: Active Protocol: Document 08/20/22 13:06 SP (Rec: 08/20/22 13:49 SP [id number]) Out-Patient Physical Therapy Visit Information Visit Information Visit Type Treatment Note Visit Start Time 13:06 Visit Stop Time 13:47 Total Visit Minutes 41 Visit Number 12 Number of SENIOR OUTSIDE SALES REPRESENTATIVE Visits 3 Precautions Precautions eczema on shoulder/ hand- careful with any adhesives or creams PT-OP-B Current Condition Start: 07/03/22 10:31 Freq: Status: Active Protocol: Document 07/09/22 13:04 AMB (Rec: 07/09/22 14:28 AMB [id number]) Current Condition History of Current Condition Onset Date a few years ago Current Complaints L shoulder pain History of Current Condition Shoulder started hurting when using the walker due to avascular necrosis and hip surgery. Shoulder has been getting somewhat better with d /cing aspercreme (has excema) and the walker. Injection did help for about 3 weeks in April. Currently using SPC in L UE. Prior Treatments and Tests 1. High-grade partial- thickness tear of the distal supraspinatus tendon. There is mild supraspinatus muscle atrophy. 2. Mild infraspinatus and subscapularis tendinosis. 3. Subcoracoid bursitis. 4. Tgtepqyv-[id number]-dahopn glenohumeral joint degeneration. 5. Posterior labral tear with paralabral cysts. Treatment Goals Patient/Caregiver Goals Reduce pain with using SPC. Prior Functional Status Baseline Function- ADL's Independent Baseline Function- Mobility Independent Current Functional Impairments (Reported) Functional Limitations- ADL's Difficulty donning/doffing shirts/jackets. Difficulty putting dishes away in cabinets. Personal Factors Other Personal Factors That May Effect Hx ovarian, breast cancer. Hx Therapy/Recovery avascular necrosis R hip. PT-OP-C Subjective Start: 07/03/22 10:31 Freq: Status: Active Protocol: Document 08/20/22 13:06 SP (Rec: 08/20/22 13:49 SP [id number]) OP-PT Subjective Patient Comments Patient Comments Pt reports was sore after last tx, think did to much in PT. PT-OP-F Manual Assessment Start: 07/03/22 10:31 Freq: Status: Active Protocol: Document 07/09/22 14:57 AMB (Rec: 07/09/22 15:04 AMB [id number]) Manual Assessments Soft Tissue Assessment Soft Tissue Mobility Assessment Tenderness over anterior shoulder over biceps tendons. No tenderness noted over scapula. Audible catches is shoulder when moving in and out of abduction. PT-OP-J Posture/Palpation/Skin Start: 07/03/22 10:31 Freq: Status: Active Protocol: Document 07/09/22 14:57 AMB (Rec: 07/09/22 15:04 AMB [id number]) Posture Evaluation Comments Posture Comments Forward shoulders, pt tends to let shoulder go up into shoulder elevation when using cane or when moving arm. PT-OP-K Range of Motion Start: 07/03/22 10:31 Freq: Status: Active Protocol: Document 07/09/22 13:04 AMB (Rec: 07/09/22 14:28 AMB [id number]) Shoulder Goniometric Range of Motion Shoulder Right Active Flexion 175 Abduction 85 External Rotation at 90 degrees 60 Abduction External Rotation at 0 degrees Abduction 85 Left Active Flexion 147 Abduction 80 External Rotation at 90 degrees 25 Abduction Internal Rotation 85 PT-OP-M Strength Start: 07/03/22 10:31 Freq: Status: Active Protocol: Document 07/09/22 13:04 AMB (Rec: 07/09/22 14:28 AMB [id number]) Shoulder Strength Shoulder Manual Muscle Testing Right Flexion 3+ Fair+ Abduction (C5) 3- Fair- External Rotation 4- Good- Internal Rotation 4 Good Left Flexion 4- Good- Abduction (C5) 3- Fair- External Rotation 3+ Fair+ Internal Rotation 4 Good PT-OP-Q Treatments Start: 07/03/22 10:31 Freq: Status: Active Protocol: Document 08/22/22 13:00 AMB (Rec: 08/22/22 13:44 AMB [id number]) Therapeutic Exercises Supine Exercises serratus press Supine Exercise Name HEP Side left Resistance AROM 3/8 Reps/Minutes x10 Comments pt states weight increases pain L shld ER Supine Exercise Name reviewed HEP Side left Resistance #1 DB Reps/Minutes x10 Comments good elbow at side- little irritation last couple reps Standing Exercises t band IR Standing Exercise Name concentric IR, eccentric ER Side left Resistance TB#1 Reps/Minutes x10 Comments cues for elbow at side, slow eccentric ERinhibit UT t band rows Side bilateral Resistance TB#2 band Reps/Minutes 5x Comments vc and manual cues for scapular movement, inhibit UT Manual Therapy Treatment Soft Tissue Mobilization L shoulder Body Location upper traps, biceps, pec, deltoid, distal infrasp Mobilization Type Cross-Friction,Myofascial Release,Strumming,Sustained Pressure Intensity/Depth Moderate Body Position Hooklying Joint Mobilizations L GH Jt Direction inferior, post glide Grade II Body Position Hooklying PT-OP-T Assessment and Plan Start: 07/03/22 10:31 Freq: Status: Active Protocol: Document 08/22/22 13:00 AMB (Rec: 08/22/22 13:44 AMB [id number]) Physical Therapy Assessment Goals Three Impairment HEP Short Term Goal (STG) Chayo will be independent and consistent with a HEP to improve her strength and ROM. STG Duration goal met, ongoing progression Whiskey Filterer Goal (LTG) Patient to demonstrate at least 4+/5 muscle strength and ROM WNL to allow her to return to all prior activities 08/14/22: added seated FF, HABD , supine scaption. 08/17/22: added resisted add, lateral counter walking, supine resisted ER and serratus press LTG Duration 10 weeks progressing 08/17/22 Two Impairment Pain Short Term Goal (STG) Chayo will ambulate for 5 minutes with 3/10 pain in her L shoulder or less. STG Duration goal met Shelter Goal (LTG) Chayo will reach up to put a plate away in a cabinet without an increase in baseline shoulder pain. 08/02/21: improved ability to reach overhead with mild inc pain, low javier for lifting anything with weight LTG Duration 10 weeks One Impairment ROM Short Term Goal (STG) Chayo will improve her left shoulder flexion to 160 degrees. 08/02/22: goal progress, improved to STG Duration 4 weeks Whiskey Filterer Goal (LTG) Chayo will improve her active shoulder abduction to at least 110 degrees. 08/14/22: seated 92 deg (AROM), supine 172 deg (AAROM) LTG Duration 10 weeks progressing 08/14/22 Assessment Summary Assessment Chayo continues to have shoulder pain, feeling like working on not having to put so much weight through the cane has been helpful for reducing pain. discussed body mechanics today and working on not having to reach to the side for driving/cooking type activities as that continues to flare sx. Physical Therapy Plan Frequency and Duration Frequency of Treatment 2x/Week Duration of treatment (weeks) 10 Plan of Care Start Date 07/09/22 Plan of Care End Date 09/17/22 Therapeutic Interventions Therapeutic Interventions Gait Training,Home Exercise Program,Joint Mobilizations, Manual Therapy,Neuromuscular Re-education,Self-Care/Home Management,Therapeutic Activities,Therapeutic Exercises Modalities Cold Pack/Ice Massage,Electric Stimulation,Hot Packs Next Visit Focus/Plan Next Note Type Treatment Note Next Visit Plan Continue progress OH ROM to allow reach into cabinet. Review HEP: see if need condensed. POC: Continue left shoulder rehab focused on postural correction, scapulohumeral rhythm, ROM, and strengthening to improve shoulder function and decrease pain.
--- NOTE | 2022-08-28 15:55 | PT.OTN ---
Current Diagnoses Primary osteoarthritis, left shoulder (08/28/22) Primary osteoarthritis, unspecified shoulder (08/28/22) Unspecified rotator cuff tear or rupture of left shoulder, not specified as traumatic (08/28/22) Bicipital tendinitis, left shoulder (08/28/22) Impingement syndrome of left shoulder (08/28/22) Physical Therapy Treatment Note PT-OP-A Visit Information Start: 07/03/22 10:31 Freq: Status: Active Protocol: Document 08/28/22 13:06 AMB (Rec: 08/28/22 13:41 AMB [id number]) Out-Patient Physical Therapy Visit Information Visit Information Visit Type Treatment Note Visit Start Time 13:00 Visit Stop Time 13:45 Total Visit Minutes 40 Visit Number 14 PT-OP-B Current Condition Start: 07/03/22 10:31 Freq: Status: Active Protocol: Document 07/09/22 13:04 AMB (Rec: 07/09/22 14:28 AMB [id number]) Current Condition History of Current Condition Onset Date a few years ago Current Complaints L shoulder pain History of Current Condition Shoulder started hurting when using the walker due to avascular necrosis and hip surgery. Shoulder has been getting somewhat better with d /cing aspercreme (has excema) and the walker. Injection did help for about 3 weeks in April. Currently using SPC in L UE. Prior Treatments and Tests 1. High-grade partial- thickness tear of the distal supraspinatus tendon. There is mild supraspinatus muscle atrophy. 2. Mild infraspinatus and subscapularis tendinosis. 3. Subcoracoid bursitis. 4. Vhgvqbja-pj-vfjucg glenohumeral joint degeneration. 5. Posterior labral tear with paralabral cysts. Treatment Goals Patient/Caregiver Goals Reduce pain with using SPC. Prior Functional Status Baseline Function- ADL's Independent Baseline Function- Mobility Independent Current Functional Impairments (Reported) Functional Limitations- ADL's Difficulty donning/doffing shirts/jackets. Difficulty putting dishes away in cabinets. Personal Factors Other Personal Factors That May Effect Hx ovarian, breast cancer. Hx Therapy/Recovery avascular necrosis R hip. PT-OP-C Subjective Start: 07/03/22 10:31 Freq: Status: Active Protocol: Document 08/28/22 13:06 AMB (Rec: 08/28/22 13:41 AMB [id number]) OP-PT Subjective Patient Comments Patient Comments Pt was sore after last visit. PT-OP-F Manual Assessment Start: 07/03/22 10:31 Freq: Status: Active Protocol: Document 07/09/22 14:57 AMB (Rec: 07/09/22 15:04 AMB [id number]) Manual Assessments Soft Tissue Assessment Soft Tissue Mobility Assessment Tenderness over anterior shoulder over biceps tendons. No tenderness noted over scapula. Audible catches is shoulder when moving in and out of abduction. PT-OP-J Posture/Palpation/Skin Start: 07/03/22 10:31 Freq: Status: Active Protocol: Document 07/09/22 14:57 AMB (Rec: 07/09/22 15:04 AMB [id number]) Posture Evaluation Comments Posture Comments Forward shoulders, pt tends to let shoulder go up into shoulder elevation when using cane or when moving arm. PT-OP-K Range of Motion Start: 07/03/22 10:31 Freq: Status: Active Protocol: Document 07/09/22 13:04 AMB (Rec: 07/09/22 14:28 AMB [id number]) Shoulder Goniometric Range of Motion Shoulder Right Active Flexion 175 Abduction 85 External Rotation at 90 degrees 60 Abduction External Rotation at 0 degrees Abduction 85 Left Active Flexion 147 Abduction 80 External Rotation at 90 degrees 25 Abduction Internal Rotation 85 PT-OP-M Strength Start: 07/03/22 10:31 Freq: Status: Active Protocol: Document 07/09/22 13:04 AMB (Rec: 07/09/22 14:28 AMB [id number]) Shoulder Strength Shoulder Manual Muscle Testing Right Flexion 3+ Fair+ Abduction (C5) 3- Fair- External Rotation 4- Good- Internal Rotation 4 Good Left Flexion 4- Good- Abduction (C5) 3- Fair- External Rotation 3+ Fair+ Internal Rotation 4 Good PT-OP-Q Treatments Start: 07/03/22 10:31 Freq: Status: Active Protocol: Document 08/28/22 13:06 AMB (Rec: 08/28/22 13:41 AMB [id number]) Cardio Equipment Upper Body Ergometer (UBE) Duration (Minutes) 6 Height 3 Therapeutic Exercises Supine Exercises L shld ER Supine Exercise Name reviewed HEP Side left Resistance #1 DB Reps/Minutes x10 Comments good elbow at side- little irritation last couple reps scaption Supine Exercise Name scaption (PNF D2 flexion) Side left Resistance AAROM x5>AROM Reps/Minutes 2x5 reps Comments cued slow pacing concentric/ eccentric return- good tiring AAROM Supine Exercise Name FF 151*, ABD 171* , Side left Resistance AROM Reps/Minutes 6 min Comments good form Standing Exercises t band rows Side bilateral Resistance TB#2 band Reps/Minutes 10 Comments vc and manual cues for scapular movement, inhibit UT Manual Therapy Treatment Soft Tissue Mobilization L shoulder Body Location upper traps, biceps, pec, deltoid, distal infrasp Mobilization Type Cross-Friction,Myofascial Release,Strumming,Sustained Pressure Intensity/Depth Moderate Body Position Hooklying PT-OP-T Assessment and Plan Start: 07/03/22 10:31 Freq: Status: Active Protocol: Document 08/28/22 13:06 AMB (Rec: 08/28/22 13:41 AMB [id number]) Physical Therapy Assessment Goals Three Impairment HEP Short Term Goal (STG) Chayo will be independent and consistent with a HEP to improve her strength and ROM. STG Duration goal met, ongoing progression Radiation Control Health Physicist Goal (LTG) Patient to demonstrate at least 4+/5 muscle strength and ROM WNL to allow her to return to all prior activities 08/14/22: added seated FF, HABD , supine scaption. 08/17/22: added resisted add, lateral counter walking, supine resisted ER and serratus press LTG Duration 10 weeks progressing 08/17/22 Two Impairment Pain Short Term Goal (STG) Chayo will ambulate for 5 minutes with 3/10 pain in her L shoulder or less. STG Duration goal met Radiation Control Health Physicist Goal (LTG) Chayo will reach up to put a plate away in a cabinet without an increase in baseline shoulder pain. 08/02/21: improved ability to reach overhead with mild inc pain, low javier for lifting anything with weight LTG Duration 10 weeks One Impairment ROM Short Term Goal (STG) Chayo will improve her left shoulder flexion to 160 degrees. 08/02/22: goal progress, improved to STG Duration 4 weeks Radiation Control Health Physicist Goal (LTG) Chayo will improve her active shoulder abduction to at least 110 degrees. 08/14/22: seated 92 deg (AROM), supine 172 deg (AAROM) LTG Duration 10 weeks progressing 08/14/22 Assessment Summary Assessment Chayo tolerated the UBE quite well, continues to have tight UT, encouraged throughout session in shoulder depression , mandie with cane. Physical Therapy Plan Frequency and Duration Frequency of Treatment 2x/Week Duration of treatment (weeks) 10 Plan of Care Start Date 07/09/22 Plan of Care End Date 09/17/22 Therapeutic Interventions Therapeutic Interventions Gait Training,Home Exercise Program,Joint Mobilizations, Manual Therapy,Neuromuscular Re-education,Self-Care/Home Management,Therapeutic Activities,Therapeutic Exercises Modalities Cold Pack/Ice Massage,Electric Stimulation,Hot Packs Next Visit Focus/Plan Next Note Type Treatment Note Next Visit Plan Continue progress OH ROM to allow reach into cabinet. Review HEP: see if need condensed. POC: Continue left shoulder rehab focused on postural correction, scapulohumeral rhythm, ROM, and strengthening to improve shoulder function and decrease pain.
--- NOTE | 2022-08-31 14:30 | PT.OTN ---
Current Diagnoses Primary osteoarthritis, left shoulder (08/31/22) Primary osteoarthritis, unspecified shoulder (08/31/22) Unspecified rotator cuff tear or rupture of left shoulder, not specified as traumatic (08/31/22) Bicipital tendinitis, left shoulder (08/31/22) Impingement syndrome of left shoulder (08/31/22) Physical Therapy Treatment Note PT-OP-A Visit Information Start: 07/03/22 10:31 Freq: Status: Active Protocol: Document 08/31/22 13:50 SP (Rec: 08/31/22 14:32 SP [id number]) Out-Patient Physical Therapy Visit Information Visit Information Visit Type Treatment Note Visit Note Update POC in 4 visits (09/17/22 ) Visit Start Time 13:50 Visit Stop Time 14:30 Total Visit Minutes 40 Visit Number 15 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 Shoulder has been getting somewhat better with d /cing aspercreme (has excema) and the walker. Injection did help for about 3 weeks in April. Currently using SPC in L UE. Prior Treatments and Tests 1. High-grade partial- thickness tear of the distal supraspinatus tendon. There is mild supraspinatus muscle atrophy. 2. Mild infraspinatus and subscapularis tendinosis. 3. Subcoracoid bursitis. 4. Qlrpfrhb-hk-ldvrma glenohumeral joint degeneration. 5. Posterior labral tear with paralabral cysts. Treatment Goals Patient/Caregiver Goals Reduce pain with using SPC. Prior Functional Status Baseline Function- ADL's Independent Baseline Function- Mobility Independent Current Functional Impairments (Reported) Functional Limitations- ADL's Difficulty donning/doffing shirts/jackets. Difficulty putting dishes away in cabinets. Personal Factors Other Personal Factors That May Effect Hx ovarian, breast cancer. Hx Therapy/Recovery avascular necrosis R hip. PT-OP-C Subjective Start: 07/03/22 10:31 Freq: Status: Active Protocol: Document 08/31/22 13:50 SP (Rec: 08/31/22 14:32 SP [id number]) OP-PT Subjective Patient Comments Patient Comments Pt reported thought the UBE helped loosen up alot last tx. PT-OP-F Manual Assessment Start: 07/03/22 10:31 Freq: Status: Active Protocol: Document 07/09/22 14:57 AMB (Rec: 07/09/22 15:04 AMB [id number]) Manual Assessments Soft Tissue Assessment Soft Tissue Mobility Assessment Tenderness over anterior shoulder over biceps tendons. No tenderness noted over scapula. Audible catches is shoulder when moving in and out of abduction. PT-OP-J Posture/Palpation/Skin Start: 07/03/22 10:31 Freq: Status: Active Protocol: Document 07/09/22 14:57 AMB (Rec: 07/09/22 15:04 AMB [id number]) Posture Evaluation Comments Posture Comments Forward shoulders, pt tends to let shoulder go up into shoulder elevation when using cane or when moving arm. PT-OP-K Range of Motion Start: 07/03/22 10:31 Freq: Status: Active Protocol: Document 07/09/22 13:04 AMB (Rec: 07/09/22 14:28 AMB [id number]) Shoulder Goniometric Range of Motion Shoulder Right Active Flexion 175 Abduction 85 External Rotation at 90 degrees 60 Abduction External Rotation at 0 degrees Abduction 85 Left Active Flexion 147 Abduction 80 External Rotation at 90 degrees 25 Abduction Internal Rotation 85 PT-OP-M Strength Start: 07/03/22 10:31 Freq: Status: Active Protocol: Document 07/09/22 13:04 AMB (Rec: 07/09/22 14:28 AMB [id number]) Shoulder Strength Shoulder Manual Muscle Testing Right Flexion 3+ Fair+ Abduction (C5) 3- Fair- External Rotation 4- Good- Internal Rotation 4 Good Left Flexion 4- Good- Abduction (C5) 3- Fair- External Rotation 3+ Fair+ Internal Rotation 4 Good PT-OP-Q Treatments Start: 07/03/22 10:31 Freq: Status: Active Protocol: Document 08/31/22 13:50 SP (Rec: 08/31/22 14:32 SP [id number]) Therapeutic Exercises Supine Exercises L shld ER Supine Exercise Name reviewed HEP (45 deg abd)- 89 deg Side left Resistance AROM Reps/Minutes x10 Comments good elbow at side- little irritation last couple reps scaption Supine Exercise Name scaption (PNF D2 flexion) Side left Resistance AAROM x5>AROM Reps/Minutes 2x5 reps Comments cued slow pacing concentric/ eccentric return- good tiring AAROM Supine Exercise Name FF 151* AROM, ABD 135* AAROM, Side left Reps/Minutes 6 min Comments required assist ABD end tx, less ABD AROM by 36 deg Sitting Exercises scapular retraction Sitting Exercise Name seated shoulder posterior rolls/rows Side bilateral Resistance TB #2 Reps/Minutes 2x10 Comments good form, limited ER strength just resisted scap retract. Standing Exercises adduction Standing Exercise Name HEP reviewed Side left Resistance Tb #1 Reps/Minutes x10 Comments good, eccentric control & aware infer glide humer head Manual Therapy Treatment Soft Tissue Mobilization L shoulder Body Location upper traps, biceps, pec, deltoid, distal infrasp Mobilization Type Cross-Friction,Myofascial Release,Strumming,Sustained Pressure Intensity/Depth Moderate Body Position Sitting Joint Mobilizations L GH Jt Direction post glide Grade II Body Position Sitting PT-OP-T Assessment and Plan Start: 07/03/22 10:31 Freq: Status: Active Protocol: Document 08/31/22 13:50 SP (Rec: 08/31/22 14:32 SP [id number]) Physical Therapy Assessment Goals Three Impairment HEP Short Term Goal (STG) Chayo will be independent and consistent with a HEP to improve her strength and ROM. STG Duration goal met, ongoing progression Snf Goal (LTG) Patient to demonstrate at least 4+/5 muscle strength and ROM WNL to allow her to return to all prior activities 08/14/22: added seated FF, HABD , supine scaption. 08/17/22: added resisted add, lateral counter walking, supine resisted ER and serratus press LTG Duration 10 weeks progressing 08/17/22 Two Impairment Pain Short Term Goal (STG) Chayo will ambulate for 5 minutes with 3/10 pain in her L shoulder or less. STG Duration goal met Director Of [employer] Goal (LTG) Chayo will reach up to put a plate away in a cabinet without an increase in baseline shoulder pain. 08/02/21: improved ability to reach overhead with mild inc pain, low javier for lifting anything with weight LTG Duration 10 weeks One Impairment ROM Short Term Goal (STG) Chayo will improve her left shoulder flexion to 160 degrees. 08/02/22: goal progress, improved to STG Duration 4 weeks Snf Goal (LTG) Chayo will improve her active shoulder abduction to at least 110 degrees. 08/14/22: seated 92 deg (AROM), supine 172 deg (AAROM) LTG Duration 10 weeks progressing 08/14/22 Assessment Summary Assessment Pt good feedback response to UBE, feels like it loosens up my shoulder. Pt able to tolerate resisted eccentric abd standing post manual and self humeral inferior glide with decreased UT recruitment. Encouraged to continue scap depression while WB on SPC LUE . Physical Therapy Plan Frequency and Duration Frequency of Treatment 2x/Week Duration of treatment (weeks) 10 Plan of Care Start Date 07/09/22 Plan of Care End Date 09/17/22 Therapeutic Interventions Therapeutic Interventions Gait Training,Home Exercise Program,Joint Mobilizations, Manual Therapy,Neuromuscular Re-education,Self-Care/Home Management,Therapeutic Activities,Therapeutic Exercises Modalities Cold Pack/Ice Massage,Electric Stimulation,Hot Packs Next Visit Focus/Plan Next Note Type Treatment Note Next Visit Plan Continue progress OH ROM to allow reach into cabinet. Review HEP: see if need condensed. POC: Continue left shoulder rehab focused on postural correction, scapulohumeral rhythm, ROM, and strengthening to improve shoulder function and decrease pain.
--- NOTE | 2022-09-04 13:51 | PT.OTN ---
Current Diagnoses Primary osteoarthritis, left shoulder (09/04/22) Primary osteoarthritis, unspecified shoulder (09/04/22) Unspecified rotator cuff tear or rupture of left shoulder, not specified as traumatic (09/04/22) Bicipital tendinitis, left shoulder (09/04/22) Impingement syndrome of left shoulder (09/04/22) Physical Therapy Treatment Note PT-OP-A Visit Information Start: 07/03/22 10:31 Freq: Status: Active Protocol: Document 09/04/22 13:09 SP (Rec: 09/04/22 13:51 SP [id number]) Out-Patient Physical Therapy Visit Information Visit Information Visit Type Treatment Note Visit Note Update POC in 3 visits (09/17/22 ) Visit Start Time 13:09 Visit Stop Time 14:47 Total Visit Minutes 38 Visit Number 16 Number of DENTURE WAXER Visits 2 Precautions Precautions eczema on shoulder/ hand- careful with any adhesives or creams PT-OP-B Current Condition Start: 07/03/22 10:31 Freq: Status: Active Protocol: Document 07/09/22 13:04 AMB (Rec: 07/09/22 14:28 AMB [id number]) Current Condition History of Current Condition Onset Date a few years ago Current Complaints L shoulder pain History of Current Condition Shoulder started hurting when using the walker due to avascular necrosis and hip surgery. Shoulder has been getting somewhat better with d /cing aspercreme (has excema) and the walker. Injection did help for about 3 weeks in April. Currently using SPC in L UE. Prior Treatments and Tests 1. High-grade partial- thickness tear of the distal supraspinatus tendon. There is mild supraspinatus muscle atrophy. 2. Mild infraspinatus and subscapularis tendinosis. 3. Subcoracoid bursitis. 4. Sdvbqqhq-fv-jlhpah glenohumeral joint degeneration. 5. Posterior labral tear with paralabral cysts. Treatment Goals Patient/Caregiver Goals Reduce pain with using SPC. Prior Functional Status Baseline Function- ADL's Independent Baseline Function- Mobility Independent Current Functional Impairments (Reported) Functional Limitations- ADL's Difficulty donning/doffing shirts/jackets. Difficulty putting dishes away in cabinets. Personal Factors Other Personal Factors That May Effect Hx ovarian, breast cancer. Hx Therapy/Recovery avascular necrosis R hip. 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 PT-OP-F Manual Assessment Start: 07/03/22 10:31 Freq: Status: Active Protocol: Document 07/09/22 14:57 AMB (Rec: 07/09/22 15:04 AMB [id number]) Manual Assessments Soft Tissue Assessment Soft Tissue Mobility Assessment Tenderness over anterior shoulder over biceps tendons. No tenderness noted over scapula. Audible catches is shoulder when moving in and out of abduction. PT-OP-J Posture/Palpation/Skin Start: 07/03/22 10:31 Freq: Status: Active Protocol: Document 07/09/22 14:57 AMB (Rec: 07/09/22 15:04 AMB [id number]) Posture Evaluation Comments Posture Comments Forward shoulders, pt tends to let shoulder go up into shoulder elevation when using cane or when moving arm. PT-OP-K Range of Motion Start: 07/03/22 10:31 Freq: Status: Active Protocol: Document 07/09/22 13:04 AMB (Rec: 07/09/22 14:28 AMB [id number]) Shoulder Goniometric Range of Motion Shoulder Right Active Flexion 175 Abduction 85 External Rotation at 90 degrees 60 Abduction External Rotation at 0 degrees Abduction 85 Left Active Flexion 147 Abduction 80 External Rotation at 90 degrees 25 Abduction Internal Rotation 85 PT-OP-M Strength Start: 07/03/22 10:31 Freq: Status: Active Protocol: Document 07/09/22 13:04 AMB (Rec: 07/09/22 14:28 AMB [id number]) Shoulder Strength Shoulder Manual Muscle Testing Right Flexion 3+ Fair+ Abduction (C5) 3- Fair- External Rotation 4- Good- Internal Rotation 4 Good Left Flexion 4- Good- Abduction (C5) 3- Fair- External Rotation 3+ Fair+ Internal Rotation 4 Good PT-OP-Q Treatments Start: 07/03/22 10:31 Freq: Status: Active Protocol: Document 09/04/22 13:09 SP (Rec: 03/21/23 13:51 SP [id number]) Cardio Equipment Upper Body Ergometer (UBE) Duration (Minutes) 6 RPM 120 Seat Position 14 Height 3 Therapeutic Exercises Standing Exercises IR stretch Side left Resistance B improved AAROM Equipment Used towel behind back then up back over opp shld. Reps/Minutes 3 reps x10 SH Comments cued tall, allow arm across oppside/pelvis adduction Standing Exercise Name HEP reviewed: eccentric abd Side left Resistance Tb #1> #2 Reps/Minutes x10 Comments good eccentric and little further abd elevation today felt t band IR Standing Exercise Name concentric IR, eccentric ER Side left Resistance TB#1> #2 Reps/Minutes x10 Comments cues for elbow at side, slow eccentric ERinhibit UT Gait Training Gait Activity trek poles Device Used B trek poles Level of Assistance S Distance/Duration 50 ft x2 Treatment Focus posturing, decrease LUE WB Comments Cued safety pole cleareance advancement with opp UE patterning/ timing, improved arm swing advancement and less stress/pain on L shld reported Manual Therapy Treatment Soft Tissue Mobilization L shoulder Body Location upper traps, biceps, pec, deltoid, distal infrasp Mobilization Type Cross-Friction,Myofascial Release,Strumming,Sustained Pressure Intensity/Depth Moderate Body Position Sitting Joint Mobilizations L GH Jt Direction post glide Grade II Body Position Sitting Manual Techniques PROM L shld Type L shld: FF Body Position seated Comments manua w/ fac inferior glide PT-OP-T Assessment and Plan Start: 07/03/22 10:31 Freq: Status: Active Protocol: Document 09/04/22 13:09 SP (Rec: 09/04/22 13:51 SP [id number]) Physical Therapy Assessment Goals Three Impairment HEP Short Term Goal (STG) Chayo will be independent and consistent with a HEP to improve her strength and ROM. STG Duration goal met, ongoing progression Half-Way Goal (LTG) Patient to demonstrate at least 4+/5 muscle strength and ROM WNL to allow her to return to all prior activities 08/14/22: added seated FF, HABD , supine scaption. 08/17/22: added resisted add, lateral counter walking, supine resisted ER and serratus press LTG Duration 10 weeks progressing 08/17/22 Two Impairment Pain Short Term Goal (STG) Chayo will ambulate for 5 minutes with 3/10 pain in her L shoulder or less. STG Duration goal met Half-Way Goal (LTG) Chayo will reach up to put a plate away in a cabinet without an increase in baseline shoulder pain. 08/02/21: improved ability to reach overhead with mild inc pain, low javier for lifting anything with weight LTG Duration 10 weeks One Impairment ROM Short Term Goal (STG) Chayo will improve her left shoulder flexion to 160 degrees. 08/02/22: goal progress, improved to STG Duration 4 weeks Gut Dropper Goal (LTG) Chayo will improve her active shoulder abduction to at least 110 degrees. 08/14/22: seated 92 deg (AROM), supine 172 deg (AAROM) LTG Duration 10 weeks progressing 08/14/22 Assessment Summary Assessment Pt reported less tension L shld eccentric abd and pressure use trek pole during advancement. She stated needed 2 to balance self alignment and allow LLE stabiltiy with UE support. 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 Pt suprised improved IR behind back with use towel today. Physical Therapy Plan Frequency and Duration Frequency of Treatment 2x/Week Duration of treatment (weeks) 10 Plan of Care Start Date 07/09/22 Plan of Care End Date 09/17/22 Therapeutic Interventions Therapeutic Interventions Gait Training,Home Exercise Program,Joint Mobilizations, Manual Therapy,Neuromuscular Re-education,Self-Care/Home Management,Therapeutic Activities,Therapeutic Exercises Modalities Cold Pack/Ice Massage,Electric Stimulation,Hot Packs Next Visit Focus/Plan Next Note Type Treatment Note Next Visit Plan Continue progress OH ROM to allow reach into cabinet. Review HEP: see if need condensed. POC: Continue left shoulder rehab focused on postural correction, scapulohumeral rhythm, ROM, and strengthening to improve shoulder function and decrease pain.
--- NOTE | 2022-09-06 15:15 | PT.OTN ---
Current Diagnoses Primary osteoarthritis, left shoulder (09/06/22) Primary osteoarthritis, unspecified shoulder (09/06/22) Unspecified rotator cuff tear or rupture of left shoulder, not specified as traumatic (09/06/22) Bicipital tendinitis, left shoulder (09/06/22) Impingement syndrome of left shoulder (09/06/22) Physical Therapy Treatment Note PT-OP-A Visit Information Start: 07/03/22 10:31 Freq: Status: Active Protocol: Document 09/06/22 14:32 SP (Rec: 09/06/22 15:36 SP [id number]) Out-Patient Physical Therapy Visit Information Visit Information Visit Type Treatment Note Visit Note Update POC in 2 visits (09/17/22 ) Visit Start Time 14:32 Visit Stop Time 15:15 Total Visit Minutes 43 Visit Number 17 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 Shoulder has been getting somewhat better with d /cing aspercreme (has excema) and the walker. Injection did help for about 3 weeks in April. Currently using SPC in L UE. Prior Treatments and Tests 1. High-grade partial- thickness tear of the distal supraspinatus tendon. There is mild supraspinatus muscle atrophy. 2. Mild infraspinatus and subscapularis tendinosis. 3. Subcoracoid bursitis. 4. Xpuejtkr-zd-dwyzkp glenohumeral joint degeneration. 5. Posterior labral tear with paralabral cysts. Treatment Goals Patient/Caregiver Goals Reduce pain with using SPC. Prior Functional Status Baseline Function- ADL's Independent Baseline Function- Mobility Independent Current Functional Impairments (Reported) Functional Limitations- ADL's Difficulty donning/doffing shirts/jackets. Difficulty putting dishes away in cabinets. Personal Factors Other Personal Factors That May Effect Hx ovarian, breast cancer. Hx Therapy/Recovery avascular necrosis R hip. PT-OP-C Subjective Start: 07/03/22 10:31 Freq: Status: Active Protocol: Document 09/06/22 14:32 SP (Rec: 09/06/22 15:36 SP [id number]) OP-PT Subjective Patient Comments Patient Comments Pt reports ordering trek pole rubber tips to allow better support on ground before can use them regular basis again. Pt reports still can't stir dough very long due to pain and muscles tiring out quickly . ALso carrying grocery bag for to long and then placing on counter, unable without RUE support. PT-OP-F Manual Assessment Start: 07/03/22 10:31 Freq: Status: Active Protocol: Document 07/09/22 14:57 AMB (Rec: 07/09/22 15:04 AMB [id number]) Manual Assessments Soft Tissue Assessment Soft Tissue Mobility Assessment Tenderness over anterior shoulder over biceps tendons. No tenderness noted over scapula. Audible catches is shoulder when moving in and out of abduction. PT-OP-J Posture/Palpation/Skin Start: 07/03/22 10:31 Freq: Status: Active Protocol: Document 07/09/22 14:57 AMB (Rec: 07/09/22 15:04 AMB [id number]) Posture Evaluation Comments Posture Comments Forward shoulders, pt tends to let shoulder go up into shoulder elevation when using cane or when moving arm. PT-OP-K Range of Motion Start: 07/03/22 10:31 Freq: Status: Active Protocol: Document 09/06/22 14:32 SP (Rec: 09/06/22 15:36 SP [id number]) Shoulder Goniometric Range of Motion Shoulder Left Active Testing Position Sitting Flexion 137 Abduction 70 External Rotation at 0 degrees Abduction 74 Internal Rotation 85 Comments Seated L shld AROM: FF 137 (less 10 deg), RUE support eccentric return start pos. ABD: 70 deg, (less 10 deg) ER:74 deg IR: Pulleys PROM L: FF 147 deg ABD: 165 deg PT-OP-M Strength Start: 07/03/22 10:31 Freq: Status: Active Protocol: Document 07/09/22 13:04 AMB (Rec: 07/09/22 14:28 AMB [id number]) Shoulder Strength Shoulder Manual Muscle Testing Right Flexion 3+ Fair+ Abduction (C5) 3- Fair- External Rotation 4- Good- Internal Rotation 4 Good Left Flexion 4- Good- Abduction (C5) 3- Fair- External Rotation 3+ Fair+ Internal Rotation 4 Good PT-OP-Q Treatments Start: 07/03/22 10:31 Freq: Status: Active Protocol: Document 09/06/22 14:32 SP (Rec: 09/06/22 15:36 SP [id number]) Cardio Equipment Upper Body Ergometer (UBE) Duration (Minutes) 6 RPM 120 Seat Position 14 Height 2>3 Other F/B 30 sec each direction alternating Therapeutic Exercises Sitting Exercises pulleys Sitting Exercise Name flexion 137> 147 deg, scaption , Abd Equipment Used *08/20/22 trialed IR behind back limited so DC Reps/Minutes 10x ea direction Comments cues for pain-free ROM, thumb up Standing Exercises bicep curls Standing Exercise Name add next tx Flexion DB Standing Exercise Name dishes away into cupboard assimulation Side left Resistance 1#DB (pt states each plate less wt home) Equipment Used (lift top portable mirror, almost same height cupboard home) Reps/Minutes x4 reps Comments before tires out 3/10 pain D1 extension Standing Exercise Name initiated in PT Side left Comments modified across body, limited painfree adduction Standing Exercise Name HEP reviewed: eccentric abd Side left Resistance Tb #2 Reps/Minutes x20 Comments good eccentric and little further abd elevation today felt shoulder extension Side left Resistance TB #2 Reps/Minutes x20 Comments good scap stab/ humeral form, painfree t band ER Standing Exercise Name seated 09/06 Side left Resistance TB#2 Equipment Used towel under arm Reps/Minutes 5x Comments cued scap/elbow depression t band IR Standing Exercise Name concentric IR, eccentric ER Side left Resistance TB#2 Reps/Minutes x10 Comments cues for elbow at side, slow eccentric ERinhibit UT wall walk Standing Exercise Name FF: 135 deg Side bilateral Reps/Minutes x3 reps Comments reports 3/10 at end range- no crepitus/ snapping. Manual Therapy Treatment Soft Tissue Mobilization L shoulder Body Location L pec, UT, deltoid, distal infrasp, Teres Mobilization Type Strumming Intensity/Depth Moderate Body Position Sitting Comments arm at side and held cross chest for post GH Jt, manual with ed can use ball on wall Joint Mobilizations L GH Jt Joint L shld Direction humeral post glide Grade II Body Position Sitting Comments arm drapped at side and held across chest- good response. PT-OP-T Assessment and Plan Start: 07/03/22 10:31 Freq: Status: Active Protocol: Document 09/06/22 14:32 SP (Rec: 09/06/22 15:36 SP [id number]) Physical Therapy Assessment Goals Three Impairment HEP Short Term Goal (STG) Chayo will be independent and consistent with a HEP to improve her strength and ROM. STG Duration goal met, ongoing progression Mcc Goal (LTG) Patient to demonstrate at least 4+/5 muscle strength and ROM WNL to allow her to return to all prior activities 08/14/22: added seated FF, HABD , supine scaption. 08/17/22: added resisted add, lateral counter walking, supine resisted ER and serratus press LTG Duration 10 weeks progressing 08/17/22 Two Impairment Pain Short Term Goal (STG) Chayo will ambulate for 5 minutes with 3/10 pain in her L shoulder or less. STG Duration goal met Mcc Goal (LTG) Chayo will reach up to put a plate away in a cabinet without an increase in baseline shoulder pain. 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 08/02/22: goal progress, improved to STG Duration 4 weeks Mcc Goal (LTG) dDidi will improve her active shoulder abduction to at least 110 degrees. 08/14/22: seated 92 deg (AROM), supine 172 deg (AAROM) 09/06/22: L shld AROM seated: ABD 70 deg, FF 137 LTG Duration 10 weeks progressing 09/06/22 Assessment Summary Assessment Pt responded well to ther ex. Able weighted reach top portable mirror. Pt making gains in ROM, Physical Therapy Plan Frequency and Duration Frequency of Treatment 2x/Week Duration of treatment (weeks) 10 Plan of Care Start Date 07/09/22 Plan of Care End Date 09/17/22 Therapeutic Interventions Therapeutic Interventions Gait Training,Home Exercise Program,Joint Mobilizations, Manual Therapy,Neuromuscular Re-education,Self-Care/Home Management,Therapeutic Activities,Therapeutic Exercises Modalities Cold Pack/Ice Massage,Electric Stimulation,Hot Packs Next Visit Focus/Plan Next Note Type Treatment Note Next Visit Plan Trial stirring motion to progress strength for baking, possible body blade and bicep strengthening for carrying groceries and place on counter , personal goal. Review HEP: see if need condensed. POC: Continue left shoulder rehab focused on postural correction, scapulohumeral rhythm, ROM, and strengthening to improve shoulder function and decrease pain.
--- NOTE | 2022-09-11 16:00 | PT.OTN ---
Current Diagnoses Primary osteoarthritis, left shoulder (09/11/22) Primary osteoarthritis, unspecified shoulder (09/11/22) Unspecified rotator cuff tear or rupture of left shoulder, not specified as traumatic (09/11/22) Bicipital tendinitis, left shoulder (09/11/22) Impingement syndrome of left shoulder (09/11/22) Physical Therapy Treatment Note PT-OP-A Visit Information Start: 07/03/22 10:31 Freq: Status: Active Protocol: Document 09/11/22 13:02 AMB (Rec: 09/11/22 13:48 AMB [id number]) Out-Patient Physical Therapy Visit Information Visit Information Visit Type Progress Note Visit Start Time 13:00 Visit Stop Time 13:45 Total Visit Minutes 45 Visit Number 18 PT-OP-B Current Condition Start: 07/03/22 10:31 Freq: Status: Active Protocol: Document 07/09/22 13:04 AMB (Rec: 07/09/22 14:28 AMB [id number]) Current Condition History of Current Condition Onset Date a few years ago Current Complaints L shoulder pain History of Current Condition Shoulder started hurting when using the walker due to avascular necrosis and hip surgery. Shoulder has been getting somewhat better with d /cing aspercreme (has excema) and the walker. Injection did help for about 3 weeks in April. Currently using SPC in L UE. Prior Treatments and Tests 1. High-grade partial- thickness tear of the distal supraspinatus tendon. There is mild supraspinatus muscle atrophy. 2. Mild infraspinatus and subscapularis tendinosis. 3. Subcoracoid bursitis. 4. Tfakurvz-am-cyvbdl glenohumeral joint degeneration. 5. Posterior labral tear with paralabral cysts. Treatment Goals Patient/Caregiver Goals Reduce pain with using SPC. Prior Functional Status Baseline Function- ADL's Independent Baseline Function- Mobility Independent Current Functional Impairments (Reported) Functional Limitations- ADL's Difficulty donning/doffing shirts/jackets. Difficulty putting dishes away in cabinets. Personal Factors Other Personal Factors That May Effect Hx ovarian, breast cancer. Hx Therapy/Recovery avascular necrosis R hip. PT-OP-C Subjective Start: 07/03/22 10:31 Freq: Status: Active Protocol: Document 09/11/22 13:02 AMB (Rec: 09/11/22 13:48 AMB [id number]) OP-PT Subjective Patient Comments Patient Comments Pt still waiting for the trek pole tip. PT-OP-F Manual Assessment Start: 07/03/22 10:31 Freq: Status: Active Protocol: Document 07/09/22 14:57 AMB (Rec: 07/09/22 15:04 AMB [id number]) Manual Assessments Soft Tissue Assessment Soft Tissue Mobility Assessment Tenderness over anterior shoulder over biceps tendons. No tenderness noted over scapula. Audible catches is shoulder when moving in and out of abduction. PT-OP-J Posture/Palpation/Skin Start: 07/03/22 10:31 Freq: Status: Active Protocol: Document 07/09/22 14:57 AMB (Rec: 07/09/22 15:04 AMB [id number]) Posture Evaluation Comments Posture Comments Forward shoulders, pt tends to let shoulder go up into shoulder elevation when using cane or when moving arm. PT-OP-K Range of Motion Start: 07/03/22 10:31 Freq: Status: Active Protocol: Document 09/06/22 14:32 SP (Rec: 09/06/22 15:36 SP [id number]) Shoulder Goniometric Range of Motion Shoulder Left Active Testing Position Sitting Flexion 137 Abduction 70 External Rotation at 0 degrees Abduction 74 Internal Rotation 85 Comments Seated L shld AROM: FF 137 (less 10 deg), RUE support eccentric return start pos. ABD: 70 deg, (less 10 deg) ER:74 deg IR: Pulleys PROM L: FF 147 deg ABD: 165 deg PT-OP-M Strength Start: 07/03/22 10:31 Freq: Status: Active Protocol: Document 07/09/22 13:04 AMB (Rec: 07/09/22 14:28 AMB [id number]) Shoulder Strength Shoulder Manual Muscle Testing Right Flexion 3+ Fair+ Abduction (C5) 3- Fair- External Rotation 4- Good- Internal Rotation 4 Good Left Flexion 4- Good- Abduction (C5) 3- Fair- External Rotation 3+ Fair+ Internal Rotation 4 Good PT-OP-Q Treatments Start: 07/03/22 10:31 Freq: Status: Active Protocol: Document 09/11/22 13:02 AMB (Rec: 09/11/22 13:48 AMB [id number]) Therapeutic Exercises Standing Exercises bicep curls Resistance #3 Reps/Minutes 2x10 D1 extension Standing Exercise Name initiated in PT Side left Comments modified across body, limited painfree t band ER Standing Exercise Name seated 09/06 Side left Resistance TB#2 Equipment Used towel under arm Reps/Minutes 5x Comments cued scap/elbow depression t band IR Standing Exercise Name concentric IR, eccentric ER Side left Resistance TB#2 Reps/Minutes x10 Comments cues for elbow at side, slow eccentric ERinhibit UT wall walk Standing Exercise Name FF: 160 Side bilateral Reps/Minutes x2 reps Comments reports 3/10 at end range- no crepitus/ snapping. Manual Therapy Treatment Soft Tissue Mobilization L shoulder Body Location L pec, UT, deltoid, distal infrasp, Teres Mobilization Type Strumming Intensity/Depth Moderate Body Position Sitting Comments arm at side and held cross chest for post GH Jt, manual PT-OP-T Assessment and Plan Start: 07/03/22 10:31 Freq: Status: Active Protocol: Document 09/11/22 13:02 AMB (Rec: 09/11/22 13:48 AMB [id number]) Physical Therapy Assessment Goals Three Impairment HEP Short Term Goal (STG) Chayo will be independent and consistent with a HEP to improve her strength and ROM. STG Duration goal met, ongoing progression Custodial Goal (LTG) Patient to demonstrate at least 4+/5 muscle strength and ROM WNL to allow her to return to all prior activities 08/14/22: added seated FF, HABD , supine scaption. 08/17/22: added resisted add, lateral counter walking, supine resisted ER and serratus press LTG Duration 10 weeks progressing 08/17/22 Two Impairment Pain Short Term Goal (STG) Chayo will ambulate for 5 minutes with 3/10 pain in her L shoulder or less. STG Duration goal met Custodial Goal (LTG) Chayo will reach up to put a plate away in a cabinet without an increase in baseline shoulder pain. 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 09/11: goal progress, improved to 160 with AAROM STG Duration 4 weeks Parks And Recreation Manager Goal (LTG) dDidi will improve her active shoulder abduction to at least 110 degrees. 08/14/22: seated 92 deg (AROM), supine 172 deg (AAROM) 09/06/22: L shld AROM seated: ABD 70 deg, FF 137 AROM 65 LTG Duration 10 weeks progressing 09/06/22 Assessment Summary Assessment Chayo's range is improving, but she does continue to have 3/ 10 pain with cane usage. Discussed trekking poles which she had been avoiding due to previous fall with them but is purchasing new more grippy tips and that should be helpful to offload some of the weight off of her shoulder. Overall improving, but still need to work on painful cane usage with walking, will continue to benefit from PT. Physical Therapy Plan Frequency and Duration Frequency of Treatment 2x/Week Duration of treatment (weeks) 10 Plan of Care Start Date 09/11/22 Plan of Care End Date 11/20/22 Therapeutic Interventions Therapeutic Interventions Gait Training,Home Exercise Program,Joint Mobilizations, Manual Therapy,Neuromuscular Re-education,Self-Care/Home Management,Therapeutic Activities,Therapeutic Exercises Modalities Cold Pack/Ice Massage,Electric Stimulation,Hot Packs Next Visit Focus/Plan Next Note Type Treatment Note Next Visit Plan Review body blade and progress biceps strengthening as tolerated. Review HEP: see if need condensed. POC: Continue left shoulder rehab focused on postural correction, scapulohumeral rhythm, ROM, and strengthening to improve shoulder function and decrease pain.
--- NOTE | 2022-09-11 16:00 | PT.OPPOC ---
Physical, Occupational & Speech Therapy At [facility] Current Diagnoses Primary osteoarthritis, left shoulder (09/11/22) Primary osteoarthritis, unspecified shoulder (09/11/22) Unspecified rotator cuff tear or rupture of left shoulder, not specified as traumatic (09/11/22) Bicipital tendinitis, left shoulder (09/11/22) Impingement syndrome of left shoulder (09/11/22) Visit Care Team Role Provider Type ENEIDA Bradley Family Provider Advanced Knitter Helper Primary Care Provider Specialty: Family Practice Address: [address] [place] [address], [id number] Email: [email or web address] Pedro Rashid DO Attending Provider Non-Staff Referring Provider Specialty: Orthopedic Surgery Address: [address] [place] [address], [id number] Email: Plan Of Care PT-OP-T Assessment and Plan Start: 07/03/22 10:31 Freq: Status: Active Protocol: Document 09/11/22 13:02 AMB (Rec: 09/11/22 13:48 AMB [id number]) Physical Therapy Assessment Goals Three Impairment HEP Short Term Goal (STG) Chayo will be independent and consistent with a HEP to improve her strength and ROM. STG Duration goal met, ongoing progression Day Spa Manager Goal (LTG) Patient to demonstrate at least 4+/5 muscle strength and ROM WNL to allow her to return to all prior activities 08/14/22: added seated FF, HABD , supine scaption. 08/17/22: added resisted add, lateral counter walking, supine resisted ER and serratus press LTG Duration 10 weeks progressing 08/17/22 Two Impairment Pain Short Term Goal (STG) Chayo will ambulate for 5 minutes with 3/10 pain in her L shoulder or less. STG Duration goal met [facility] Goal (LTG) Chayo will reach up to put a plate away in a cabinet without an increase in baseline shoulder pain. 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 09/11: goal progress, improved to 160 with AAROM STG Duration 4 weeks [facility] Goal (LTG) dDidi will improve her active shoulder abduction to at least 110 degrees. 08/14/22: seated 92 deg (AROM), supine 172 deg (AAROM) 09/06/22: L shld AROM seated: ABD 70 deg, FF 137 AROM 65 LTG Duration 10 weeks progressing 09/06/22 Assessment Summary Assessment Chayo's range is improving, but she does continue to have 3/ 10 pain with cane usage. Discussed trekking poles which she had been avoiding due to previous fall with them but is purchasing new more grippy tips and that should be helpful to offload some of the weight off of her shoulder. Overall improving, but still need to work on painful cane usage with walking, will continue to benefit from PT. Physical Therapy Plan Frequency and Duration Frequency of Treatment 2x/Week Duration of treatment (weeks) 10 Plan of Care Start Date 09/11/22 Plan of Care End Date 11/20/22 Therapeutic Interventions Therapeutic Interventions Gait Training,Home Exercise Program,Joint Mobilizations, Manual Therapy,Neuromuscular Re-education,Self-Care/Home Management,Therapeutic Activities,Therapeutic Exercises Modalities Cold Pack/Ice Massage,Electric Stimulation,Hot Packs Next Visit Focus/Plan Next Note Type Treatment Note Next Visit Plan Review body blade and progress biceps strengthening as tolerated. Review HEP: see if need condensed. POC: Continue left shoulder rehab focused on postural correction, scapulohumeral rhythm, ROM, and strengthening to improve shoulder function and decrease pain. Plan of Care Dates Plan of Care Start Date 09/11/22 Plan of Care End Date 11/20/22 Electronically Signed by: Caroline Calloway, PT 09/12/22 [id number] If you are in agreement with this Plan of Care, please return a signed and dated copy. I have reviewed this Plan of Care and certify that the skilled therapy services above are required to meet the patient?s needs. Physician Signature Date Printed Name and Credentials Clinical Instructor Signature Printed Name and Credentials
--- NOTE | 2022-09-17 16:06 | PT.OTN ---
Current Diagnoses Primary osteoarthritis, left shoulder (09/17/22) Primary osteoarthritis, unspecified shoulder (09/17/22) Unspecified rotator cuff tear or rupture of left shoulder, not specified as traumatic (09/17/22) Bicipital tendinitis, left shoulder (09/17/22) Impingement syndrome of left shoulder (09/17/22) Physical Therapy Treatment Note PT-OP-A Visit Information Start: 07/03/22 10:31 Freq: Status: Active Protocol: Document 09/17/22 15:18 SAK (Rec: 09/17/22 16:06 [facility] [id number]) Out-Patient Physical Therapy Visit Information Visit Information Visit Type Treatment Note Visit Start Time 15:18 Visit Stop Time 15:52 Total Visit Minutes 40 Visit Number 19 Precautions Precautions eczema on shoulder/ hand- careful with any adhesives or creams PT-OP-B Current Condition Start: 07/03/22 10:31 Freq: Status: Active Protocol: Document 09/17/22 15:18 SAK (Rec: 09/17/22 16:06 SAK [id number]) Current Condition History of Current Condition Onset Date a few years ago Current Complaints L shoulder pain History of Current Condition Shoulder started hurting when using the walker due to avascular necrosis and hip surgery. Shoulder has been getting somewhat better with d /cing aspercreme (has excema) and the walker. Injection did help for about 3 weeks in April. Currently using SPC in L UE. Prior Treatments and Tests 1. High-grade partial- thickness tear of the distal supraspinatus tendon. There is mild supraspinatus muscle atrophy. 2. Mild infraspinatus and subscapularis tendinosis. 3. Subcoracoid bursitis. 4. Tzgdview-ra-preloz glenohumeral joint degeneration. 5. Posterior labral tear with paralabral cysts. PT-OP-C Subjective Start: 07/03/22 10:31 Freq: Status: Active Protocol: Document 09/17/22 15:18 SAK (Rec: 09/17/22 16:06 SAK [id number]) OP-PT Subjective Patient Comments Patient Comments Slept on left shoulder last night, woke up very sore. PT-OP-F Manual Assessment Start: 07/03/22 10:31 Freq: Status: Active Protocol: Document 07/09/22 14:57 AMB (Rec: 07/09/22 15:04 AMB [id number]) Manual Assessments Soft Tissue Assessment Soft Tissue Mobility Assessment Tenderness over anterior shoulder over biceps tendons. No tenderness noted over scapula. Audible catches is shoulder when moving in and out of abduction. PT-OP-J Posture/Palpation/Skin Start: 07/03/22 10:31 Freq: Status: Active Protocol: Document 07/09/22 14:57 AMB (Rec: 07/09/22 15:04 AMB [id number]) Posture Evaluation Comments Posture Comments Forward shoulders, pt tends to let shoulder go up into shoulder elevation when using cane or when moving arm. PT-OP-K Range of Motion Start: 07/03/22 10:31 Freq: Status: Active Protocol: Document 09/06/22 14:32 SP (Rec: 09/06/22 15:36 SP [id number]) Shoulder Goniometric Range of Motion Shoulder Left Active Testing Position Sitting Flexion 137 Abduction 70 External Rotation at 0 degrees Abduction 74 Internal Rotation 85 Comments Seated L shld AROM: FF 137 (less 10 deg), RUE support eccentric return start pos. ABD: 70 deg, (less 10 deg) ER:74 deg IR: Pulleys PROM L: FF 147 deg ABD: 165 deg PT-OP-M Strength Start: 07/03/22 10:31 Freq: Status: Active Protocol: Document 07/09/22 13:04 AMB (Rec: 07/09/22 14:28 AMB [id number]) Shoulder Strength Shoulder Manual Muscle Testing Right Flexion 3+ Fair+ Abduction (C5) 3- Fair- External Rotation 4- Good- Internal Rotation 4 Good Left Flexion 4- Good- Abduction (C5) 3- Fair- External Rotation 3+ Fair+ Internal Rotation 4 Good PT-OP-Q Treatments Start: 07/03/22 10:31 Freq: Status: Active Protocol: Document 09/17/22 15:18 SAK (Rec: 09/17/22 16:06 SAK [id number]) Cardio Equipment Upper Body Ergometer (UBE) Duration (Minutes) 7 RPM 120 Seat Position 14 Height 2>3 Other F/B 30 sec each direction alternating Therapeutic Exercises Sitting Exercises Body blade Sitting Exercise Name vertical: f/b, IR/ER, horizontal: f/b Reps/Minutes 1 min ea pulleys Sitting Exercise Name flexion 137> 147 deg, scaption , Abd Reps/Minutes 10x ea direction Comments cues for pain-free ROM, thumb up Standing Exercises bicep curls Standing Exercise Name sitting Resistance 2# Reps/Minutes 2x10 D1 extension Side left Comments modified across body, limited painfree t band ER Standing Exercise Name seated Side left Resistance TB#2 Equipment Used towel under arm Reps/Minutes 5x Comments cued scap/elbow depression t band IR Standing Exercise Name concentric IR, eccentric ER Side left Resistance TB#2 Reps/Minutes x10 Comments cues for elbow at side, slow eccentric ERinhibit UT wall walk Standing Exercise Name FF: 150 Side bilateral Reps/Minutes x2 reps Comments more painful today Manual Therapy Treatment Soft Tissue Mobilization L shoulder Body Location L pec, UT, deltoid, distal infrasp, Teres Mobilization Type Strumming Intensity/Depth Moderate Body Position Sitting Comments arm at side and held cross chest for post GH Jt, manual Joint Mobilizations L GH Jt Joint L shld Direction humeral post glide Grade II Body Position Sitting Comments arm drapped at side and held across chest- good response. PT-OP-T Assessment and Plan Start: 07/03/22 10:31 Freq: Status: Active Protocol: Document 09/17/22 15:18 [facility] (Rec: 09/17/22 16:06 [facility] [id number]) Physical Therapy Assessment Goals Three Impairment HEP Short Term Goal (STG) Chayo will be independent and consistent with a HEP to improve her strength and ROM. STG Duration goal met, ongoing progression Aqua Ammonia Operator Goal (LTG) Patient to demonstrate at least 4+/5 muscle strength and ROM WNL to allow her to return to all prior activities 08/14/22: added seated FF, HABD , supine scaption. 08/17/22: added resisted add, lateral counter walking, supine resisted ER and serratus press LTG Duration 10 weeks progressing 08/17/22 Two Impairment Pain Short Term Goal (STG) Chayo will ambulate for 5 minutes with 3/10 pain in her L shoulder or less. STG Duration goal met Skilled Nursing Goal (LTG) Chayo will reach up to put a plate away in a cabinet without an increase in baseline shoulder pain. 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 09/11: goal progress, improved to 160 with AAROM STG Duration 4 weeks Skilled Nursing Goal (LTG) dDidi will improve her active shoulder abduction to at least 110 degrees. 08/14/22: seated 92 deg (AROM), supine 172 deg (AAROM) 09/06/22: L shld AROM seated: ABD 70 deg, FF 137 AROM 65 LTG Duration 10 weeks progressing 09/06/22 Assessment Summary Assessment Decreased ROM today due to soreness from sleeping on left shoulder. Unable to use new tips on trekking poles so will replace. Moderate cues for dec overactivation of UT. Physical Therapy Plan Frequency and Duration Frequency of Treatment 2x/Week Duration of treatment (weeks) 10 Plan of Care Start Date 09/11/22 Plan of Care End Date 11/20/22 Therapeutic Interventions Therapeutic Interventions Gait Training,Home Exercise Program,Joint Mobilizations, Manual Therapy,Neuromuscular Re-education,Self-Care/Home Management,Therapeutic Activities,Therapeutic Exercises Modalities Cold Pack/Ice Massage,Electric Stimulation,Hot Packs Next Visit Focus/Plan Next Note Type Progress Note Next Visit Plan POC: Continue left shoulder rehab focused on postural correction, scapulohumeral rhythm, ROM, and strengthening to improve shoulder function and decrease pain.
--- NOTE | 2022-09-25 15:34 | PT.OTN ---
Current Diagnoses Primary osteoarthritis, left shoulder (09/25/22) Primary osteoarthritis, unspecified shoulder (09/25/22) Unspecified rotator cuff tear or rupture of left shoulder, not specified as traumatic (09/25/22) Bicipital tendinitis, left shoulder (09/25/22) Impingement syndrome of left shoulder (09/25/22) Physical Therapy Treatment Note PT-OP-A Visit Information Start: 07/03/22 10:31 Freq: Status: Active Protocol: Document 09/25/22 14:33 AMB (Rec: 09/25/22 15:33 AMB [id number]) Out-Patient Physical Therapy Visit Information Visit Information Visit Type Treatment Note Visit Start Time 14:30 Visit Stop Time 15:15 Total Visit Minutes 40 Visit Number 20 PT-OP-B Current Condition Start: 07/03/22 10:31 Freq: Status: Active Protocol: Document 09/17/22 15:18 SAK (Rec: 09/17/22 16:06 SAK [id number]) Current Condition History of Current Condition Onset Date a few years ago Current Complaints L shoulder pain History of Current Condition Shoulder started hurting when using the walker due to avascular necrosis and hip surgery. Shoulder has been getting somewhat better with d /cing aspercreme (has excema) and the walker. Injection did help for about 3 weeks in April. Currently using SPC in L UE. Prior Treatments and Tests 1. High-grade partial- thickness tear of the distal supraspinatus tendon. There is mild supraspinatus muscle atrophy. 2. Mild infraspinatus and subscapularis tendinosis. 3. Subcoracoid bursitis. 4. Izuqqvmt-jw-lceqik glenohumeral joint degeneration. 5. Posterior labral tear with paralabral cysts. PT-OP-C Subjective Start: 07/03/22 10:31 Freq: Status: Active Protocol: Document 09/25/22 14:33 AMB (Rec: 09/25/22 15:33 AMB [id number]) OP-PT Subjective Patient Comments Patient Comments Chayo is sore after cooking all morning. PT-OP-F Manual Assessment Start: 07/03/22 10:31 Freq: Status: Active Protocol: Document 07/09/22 14:57 AMB (Rec: 07/09/22 15:04 AMB [id number]) Manual Assessments Soft Tissue Assessment Soft Tissue Mobility Assessment Tenderness over anterior shoulder over biceps tendons. No tenderness noted over scapula. Audible catches is shoulder when moving in and out of abduction. PT-OP-J Posture/Palpation/Skin Start: 07/03/22 10:31 Freq: Status: Active Protocol: Document 07/09/22 14:57 AMB (Rec: 07/09/22 15:04 AMB [id number]) Posture Evaluation Comments Posture Comments Forward shoulders, pt tends to let shoulder go up into shoulder elevation when using cane or when moving arm. PT-OP-K Range of Motion Start: 07/03/22 10:31 Freq: Status: Active Protocol: Document 09/06/22 14:32 SP (Rec: 09/06/22 15:36 SP [id number]) Shoulder Goniometric Range of Motion Shoulder Left Active Testing Position Sitting Flexion 137 Abduction 70 External Rotation at 0 degrees Abduction 74 Internal Rotation 85 Comments Seated L shld AROM: FF 137 (less 10 deg), RUE support eccentric return start pos. ABD: 70 deg, (less 10 deg) ER:74 deg IR: Pulleys PROM L: FF 147 deg ABD: 165 deg PT-OP-M Strength Start: 07/03/22 10:31 Freq: Status: Active Protocol: Document 07/09/22 13:04 AMB (Rec: 07/09/22 14:28 AMB [id number]) Shoulder Strength Shoulder Manual Muscle Testing Right Flexion 3+ Fair+ Abduction (C5) 3- Fair- External Rotation 4- Good- Internal Rotation 4 Good Left Flexion 4- Good- Abduction (C5) 3- Fair- External Rotation 3+ Fair+ Internal Rotation 4 Good PT-OP-Q Treatments Start: 07/03/22 10:31 Freq: Status: Active Protocol: Document 09/25/22 14:33 AMB (Rec: 09/25/22 15:33 AMB [id number]) Therapeutic Exercises Sidelying Exercises shoulder ER Sidelying Exercise Name AAROM Reps/Minutes 10x Comments PT assist for form Standing Exercises bicep curls Standing Exercise Name sitting Resistance 2# Reps/Minutes 2x10 D1 extension Side left Comments modified across body, limited painfree t band ER Standing Exercise Name seated Side left Resistance peach Reps/Minutes 5x Comments cued scap/elbow depression t band IR Standing Exercise Name concentric IR, eccentric ER Side left Resistance peach Reps/Minutes x10 Comments cues for elbow at side, slow eccentric ERinhibit UT t band rows Side bilateral Resistance orange Reps/Minutes 10 Comments vc and manual cues for scapular movement, inhibit UT Manual Therapy Treatment Soft Tissue Mobilization L shoulder Body Location L pec, UT, deltoid, distal infrasp, Teres Mobilization Type Strumming Intensity/Depth Moderate Body Position Sitting Comments arm at side and held cross chest for post GH Jt, manual PT-OP-T Assessment and Plan Start: 07/03/22 10:31 Freq: Status: Active Protocol: Document 09/25/22 14:33 AMB (Rec: 09/25/22 15:33 AMB [id number]) Physical Therapy Assessment Goals Three Impairment HEP Short Term Goal (STG) Chayo will be independent and consistent with a HEP to improve her strength and ROM. STG Duration goal met, ongoing progression Motorcycle Service Technician Goal (LTG) Patient to demonstrate at least 4+/5 muscle strength and ROM WNL to allow her to return to all prior activities 08/14/22: added seated FF, HABD , supine scaption. 08/17/22: added resisted add, lateral counter walking, supine resisted ER and serratus press LTG Duration 10 weeks progressing 08/17/22 Two Impairment Pain Short Term Goal (STG) Chayo will ambulate for 5 minutes with 3/10 pain in her L shoulder or less. STG Duration goal met Usp Goal (LTG) Chayo will reach up to put a plate away in a cabinet without an increase in baseline shoulder pain. 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 09/11: goal progress, improved to 160 with AAROM STG Duration 4 weeks Usp Goal (LTG) dDidi will improve her active shoulder abduction to at least 110 degrees. 08/14/22: seated 92 deg (AROM), supine 172 deg (AAROM) 09/06/22: L shld AROM seated: ABD 70 deg, FF 137 AROM 65 LTG Duration 10 weeks progressing 09/06/22 Assessment Summary Assessment Pt states sleeping is better with pillow adjustments. Continues to be sore, cooking today increased soreness, going to order new trekking poles. Physical Therapy Plan Frequency and Duration Frequency of Treatment 2x/Week Duration of treatment (weeks) 10 Plan of Care Start Date 09/11/22 Plan of Care End Date 11/20/22 Therapeutic Interventions Therapeutic Interventions Gait Training,Home Exercise Program,Joint Mobilizations, Manual Therapy,Neuromuscular Re-education,Self-Care/Home Management,Therapeutic Activities,Therapeutic Exercises Modalities Cold Pack/Ice Massage,Electric Stimulation,Hot Packs Next Visit Focus/Plan Next Note Type Progress Note Next Visit Plan POC: Continue left shoulder rehab focused on postural correction, scapulohumeral rhythm, ROM, and strengthening to improve shoulder function and decrease pain.
--- NOTE | 2022-10-09 15:18 | PT.OTN ---
Current Diagnoses Primary osteoarthritis, left shoulder (10/09/22) Primary osteoarthritis, unspecified shoulder (10/09/22) Unspecified rotator cuff tear or rupture of left shoulder, not specified as traumatic (10/09/22) Bicipital tendinitis, left shoulder (10/09/22) Impingement syndrome of left shoulder (10/09/22) Physical Therapy Treatment Note PT-OP-A Visit Information Start: 07/03/22 10:31 Freq: Status: Active Protocol: Document 10/09/22 14:32 SP (Rec: 10/09/22 15:33 SP [id number]) Out-Patient Physical Therapy Visit Information Visit Information Visit Type Treatment Note Visit Note 08/24 after PN Visit Start Time 14:32 Visit Stop Time 15:18 Total Visit Minutes 45 Visit Number 21 Number of LEARNING SUPPORT ASSISTANT Visits 1 Precautions Precautions eczema on shoulder/ hand- careful with any adhesives or creams PT-OP-B Current Condition Start: 07/03/22 10:31 Freq: Status: Active Protocol: Document 09/17/22 15:18 SAK (Rec: 09/17/22 16:06 SAK [id number]) Current Condition History of Current Condition Onset Date a few years ago Current Complaints L shoulder pain History of Current Condition Shoulder started hurting when using the walker due to avascular necrosis and hip surgery. Shoulder has been getting somewhat better with d /cing aspercreme (has excema) and the walker. Injection did help for about 3 weeks in April. Currently using SPC in L UE. Prior Treatments and Tests 1. High-grade partial- thickness tear of the distal supraspinatus tendon. There is mild supraspinatus muscle atrophy. 2. Mild infraspinatus and subscapularis tendinosis. 3. Subcoracoid bursitis. 4. Gevohvng-lc-lrhbzs glenohumeral joint degeneration. 5. Posterior labral tear with paralabral cysts. PT-OP-C Subjective Start: 07/03/22 10:31 Freq: Status: Active Protocol: Document 10/09/22 14:32 SP (Rec: 10/09/22 15:33 SP [id number]) OP-PT Subjective Patient Comments Patient Comments Pt reported little stressful lately with medical emergencies so wasn't as good about HEP. She does notice able to do more things with LUE. PT-OP-F Manual Assessment Start: 07/03/22 10:31 Freq: Status: Active Protocol: Document 07/09/22 14:57 AMB (Rec: 07/09/22 15:04 AMB [id number]) Manual Assessments Soft Tissue Assessment Soft Tissue Mobility Assessment Tenderness over anterior shoulder over biceps tendons. No tenderness noted over scapula. Audible catches is shoulder when moving in and out of abduction. PT-OP-J Posture/Palpation/Skin Start: 07/03/22 10:31 Freq: Status: Active Protocol: Document 07/09/22 14:57 AMB (Rec: 07/09/22 15:04 AMB [id number]) Posture Evaluation Comments Posture Comments Forward shoulders, pt tends to let shoulder go up into shoulder elevation when using cane or when moving arm. PT-OP-K Range of Motion Start: 07/03/22 10:31 Freq: Status: Active Protocol: Document 10/09/22 14:32 SP (Rec: 10/09/22 15:33 SP [id number]) Shoulder Goniometric Range of Motion Shoulder Left Active Testing Position Sitting Flexion 140 Abduction 70 External Rotation at 0 degrees Abduction 74 Internal Rotation 85 Comments Seated L shld AROM: FF 140 (gained 3 deg) ABD (scaption): 130 deg ER:74 deg IR: T12 PT-OP-M Strength Start: 07/03/22 10:31 Freq: Status: Active Protocol: Document 07/09/22 13:04 AMB (Rec: 07/09/22 14:28 AMB [id number]) Shoulder Strength Shoulder Manual Muscle Testing Right Flexion 3+ Fair+ Abduction (C5) 3- Fair- External Rotation 4- Good- Internal Rotation 4 Good Left Flexion 4- Good- Abduction (C5) 3- Fair- External Rotation 3+ Fair+ Internal Rotation 4 Good PT-OP-Q Treatments Start: 07/03/22 10:31 Freq: Status: Active Protocol: Document 10/09/22 14:32 SP (Rec: 10/09/22 15:33 SP [id number]) Cardio Equipment Upper Body Ergometer (UBE) Duration (Minutes) 6 RPM 120 Seat Position 13 Height 3 Other F/B 30 sec each direction alternating Therapeutic Exercises Sidelying Exercises shoulder ER Sidelying Exercise Name AROM Side left Equipment Used towel under arm Reps/Minutes 10x Comments good form painfree. AAROM Sidelying Exercise Name ABD- approx 130 deg Side left Resistance AAROM therapist support Reps/Minutes 10x- little irritation end feel Comments manual cues for scapular rotaton and humeral inf glide Sitting Exercises UT, LS stretching Side left Reps/Minutes 30 each Comments good feedback stretching Body blade Sitting Exercise Name vertical: f/b, IR/ER, horizontal: f/b (not performed 10/09/22) Side left Equipment Used small/ yellow Reps/Minutes 30 sec f/b, 15 sec IR/ ER Comments muscle tiring f/b, cued no UE UT spasming at 15 sec stopped HABD Sitting Exercise Name table slide HABD Side bilateral Resistance AROM> 5#>3# leg wt on pillowcase Reps/Minutes 5 reps AROM, 3 reps 5#, x10 reps 3# Comments cued stable trunk pulleys Sitting Exercise Name flexion scaption, Abd Reps/Minutes 10x ea direction Comments cues for pain-free ROM, thumb up Manual Therapy Treatment Soft Tissue Mobilization L shoulder Body Location L UT, LS Mobilization Type Strumming,Sustained Pressure, Other Intensity/Depth Moderate Body Position Sitting Comments arm at side, w/ FM head nods/ turns pre stretching post body blade. Joint Mobilizations scapula Direction pro/retraction, inf glide Grade III Body Position Sidelying L GH Jt Joint L shld Direction humeral inf glide Grade II Body Position Sidelying Comments w/ ABD FM and between sets AAR PT-OP-T Assessment and Plan Start: 07/03/22 10:31 Freq: Status: Active Protocol: Document 10/09/22 14:32 SP (Rec: 10/09/22 15:33 SP [id number]) Physical Therapy Assessment Goals Three Impairment HEP Short Term Goal (STG) Chayo will be independent and consistent with a HEP to improve her strength and ROM. STG Duration goal met, ongoing progression Correction Goal (LTG) Patient to demonstrate at least 4+/5 muscle strength and ROM WNL to allow her to return to all prior activities 08/14/22: added seated FF, HABD , supine scaption. 08/17/22: added resisted add, lateral counter walking, supine resisted ER and serratus press LTG Duration 10 weeks progressing 08/17/22 Two Impairment Pain Short Term Goal (STG) Chayo will ambulate for 5 minutes with 3/10 pain in her L shoulder or less. STG Duration goal met Correction Goal (LTG) Chayo will reach up to put a plate away in a cabinet without an increase in baseline shoulder pain. 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 09/11: goal progress, improved to 160 with AAROM 10/09/22: 140 flexion, 130 ABD (modified), ER 74, T12 IR behind back. STG Duration 4 weeks progressing 10/09/22 Pad Machine Feeder Goal (LTG) dDidi will improve her active shoulder abduction to at least 110 degrees. 08/14/22: seated 92 deg (AROM), supine 172 deg (AAROM) 09/06/22: L shld AROM seated: ABD 70 deg, FF 137 AROM 65 10/09/22: modified ABD 130 deg. LTG Duration 10 weeks progressing 10/09/22 Progress Towards Goals Progress Comments 10/09/22: Seated L shld AROM: FF 140 (gained 3 deg) ABD (scaption): 130 deg ER:74 deg IR: T12 Assessment Summary Assessment Pt improved reaching LUE OH seated see measurements, limited abd sidelying pinching GH jt. She reports is less pain and less WB use B trek poles, ed use into grocerystore can place in cart handle side into basket so doesn't fall through holes. Improved scapular ROM with gait, table slides and improved self corrections LT fac during pulleys. Physical Therapy Plan Frequency and Duration Frequency of Treatment 2x/Week Duration of treatment (weeks) 10 Plan of Care Start Date 09/11/22 Plan of Care End Date 11/20/22 Therapeutic Interventions Therapeutic Interventions Gait Training,Home Exercise Program,Joint Mobilizations, Manual Therapy,Neuromuscular Re-education,Self-Care/Home Management,Therapeutic Activities,Therapeutic Exercises Modalities Cold Pack/Ice Massage,Electric Stimulation,Hot Packs Next Visit Focus/Plan Next Note Type Treatment Note Next Visit Plan Continue OH FF, ABD and scapulohumeral ROM with LT recruitment. POC: Continue left shoulder rehab focused on postural correction, scapulohumeral rhythm, ROM, and strengthening to improve shoulder function and decrease pain.
--- NOTE | 2022-10-16 16:00 | PT.OTN ---
Current Diagnoses Primary osteoarthritis, left shoulder (10/16/22) Primary osteoarthritis, unspecified shoulder (10/16/22) Unspecified rotator cuff tear or rupture of left shoulder, not specified as traumatic (10/16/22) Bicipital tendinitis, left shoulder (10/16/22) Impingement syndrome of left shoulder (10/16/22) Physical Therapy Treatment Note PT-OP-A Visit Information Start: 07/03/22 10:31 Freq: Status: Active Protocol: Document 10/16/22 14:51 AMB (Rec: 10/16/22 15:48 AMB [id number]) Out-Patient Physical Therapy Visit Information Visit Information Visit Type Treatment Note Visit Note 09/24 Visit Start Time 14:30 Visit Stop Time 15:15 Total Visit Minutes 45 Visit Number 22 PT-OP-B Current Condition Start: 07/03/22 10:31 Freq: Status: Active Protocol: Document 09/17/22 15:18 SAK (Rec: 09/17/22 16:06 SAK [id number]) Current Condition History of Current Condition Onset Date a few years ago Current Complaints L shoulder pain History of Current Condition Shoulder started hurting when using the walker due to avascular necrosis and hip surgery. Shoulder has been getting somewhat better with d /cing aspercreme (has excema) and the walker. Injection did help for about 3 weeks in April. Currently using SPC in L UE. Prior Treatments and Tests 1. High-grade partial- thickness tear of the distal supraspinatus tendon. There is mild supraspinatus muscle atrophy. 2. Mild infraspinatus and subscapularis tendinosis. 3. Subcoracoid bursitis. 4. Aaacbepm-ek-lpzdeq glenohumeral joint degeneration. 5. Posterior labral tear with paralabral cysts. PT-OP-C Subjective Start: 07/03/22 10:31 Freq: Status: Active Protocol: Document 10/16/22 14:51 AMB (Rec: 10/16/22 15:48 AMB [id number]) OP-PT Subjective Patient Comments Patient Comments Pt is doing well with her shoulder, feeling like trekking poles are helpful. PT-OP-F Manual Assessment Start: 07/03/22 10:31 Freq: Status: Active Protocol: Document 07/09/22 14:57 AMB (Rec: 07/09/22 15:04 AMB [id number]) Manual Assessments Soft Tissue Assessment Soft Tissue Mobility Assessment Tenderness over anterior shoulder over biceps tendons. No tenderness noted over scapula. Audible catches is shoulder when moving in and out of abduction. PT-OP-J Posture/Palpation/Skin Start: 07/03/22 10:31 Freq: Status: Active Protocol: Document 07/09/22 14:57 AMB (Rec: 07/09/22 15:04 AMB [id number]) Posture Evaluation Comments Posture Comments Forward shoulders, pt tends to let shoulder go up into shoulder elevation when using cane or when moving arm. PT-OP-K Range of Motion Start: 07/03/22 10:31 Freq: Status: Active Protocol: Document 10/09/22 14:32 SP (Rec: 10/09/22 15:33 SP [id number]) Shoulder Goniometric Range of Motion Shoulder Left Active Testing Position Sitting Flexion 140 Abduction 70 External Rotation at 0 degrees Abduction 74 Internal Rotation 85 Comments Seated L shld AROM: FF 140 (gained 3 deg) ABD (scaption): 130 deg ER:74 deg IR: T12 PT-OP-M Strength Start: 07/03/22 10:31 Freq: Status: Active Protocol: Document 07/09/22 13:04 AMB (Rec: 07/09/22 14:28 AMB [id number]) Shoulder Strength Shoulder Manual Muscle Testing Right Flexion 3+ Fair+ Abduction (C5) 3- Fair- External Rotation 4- Good- Internal Rotation 4 Good Left Flexion 4- Good- Abduction (C5) 3- Fair- External Rotation 3+ Fair+ Internal Rotation 4 Good PT-OP-Q Treatments Start: 07/03/22 10:31 Freq: Status: Active Protocol: Document 10/16/22 14:51 AMB (Rec: 10/16/22 15:48 AMB [id number]) Therapeutic Exercises Sitting Exercises scapular retraction Sitting Exercise Name seated shoulder posterior rolls/rows Side bilateral Resistance TB #2 Reps/Minutes 2x10 Comments good form, limited ER strength just resisted scap retract. scapular depression Sitting Exercise Name shld extension, AAROM ecccentric FF Side left Reps/Minutes 5 reps x2 Comments (waiting for miya use) Standing Exercises bicep curls Standing Exercise Name sitting Resistance 2# Reps/Minutes 2x10 t band ER Standing Exercise Name seated Side left Resistance peach Reps/Minutes 5x Comments cued scap/elbow depression t band IR Standing Exercise Name concentric IR, eccentric ER Side left Resistance peach Reps/Minutes x10 Comments cues for elbow at side, slow eccentric ERinhibit UT t band rows Side bilateral Resistance orange Reps/Minutes 10 Comments vc and manual cues for scapular movement, inhibit UT Manual Therapy Treatment Soft Tissue Mobilization L shoulder Body Location L UT, LS Mobilization Type Strumming,Sustained Pressure, Other Intensity/Depth Moderate Body Position Hooklying Comments arm at side, w/ FM head nods/ turns pre stretching post body blade. Joint Mobilizations L GH Jt Joint L shld Direction humeral inf glide Grade II Body Position Hooklying Comments w/ ABD FM and between sets AAROM PT-OP-T Assessment and Plan Start: 07/03/22 10:31 Freq: Status: Active Protocol: Document 10/16/22 14:51 AMB (Rec: 10/16/22 15:48 AMB [id number]) Physical Therapy Assessment Goals Three Impairment HEP Short Term Goal (STG) Chayo will be independent and consistent with a HEP to improve her strength and ROM. STG Duration goal met, ongoing progression Technical Services Representative Goal (LTG) Patient to demonstrate at least 4+/5 muscle strength and ROM WNL to allow her to return to all prior activities 08/14/22: added seated FF, HABD , supine scaption. 08/17/22: added resisted add, lateral counter walking, supine resisted ER and serratus press LTG Duration 10 weeks progressing 08/17/22 One Impairment ROM Short Term Goal (STG) Chayo will improve her left shoulder flexion to 160 degrees. 09/11: goal progress, improved to 160 with AAROM 10/09/22: 140 flexion, 130 ABD (modified), ER 74, T12 IR behind back. STG Duration 4 weeks progressing 10/09/22 Technical Services Representative Goal (LTG) dDidi will improve her active shoulder abduction to at least 110 degrees. 08/14/22: seated 92 deg (AROM), supine 172 deg (AAROM) 09/06/22: L shld AROM seated: ABD 70 deg, FF 137 AROM 65 10/09/22: modified ABD 130 deg. LTG Duration 10 weeks progressing 10/09/22 Assessment Summary Assessment Chayo's shoulder is improving with more trekking pole usage. Continues to feel pain with lifting, especially cooking. Physical Therapy Plan Frequency and Duration Frequency of Treatment 2x/Week Duration of treatment (weeks) 10 Plan of Care Start Date 09/11/22 Plan of Care End Date 11/20/22 Therapeutic Interventions Therapeutic Interventions Gait Training,Home Exercise Program,Joint Mobilizations, Manual Therapy,Neuromuscular Re-education,Self-Care/Home Management,Therapeutic Activities,Therapeutic Exercises Modalities Cold Pack/Ice Massage,Electric Stimulation,Hot Packs Next Visit Focus/Plan Next Note Type Treatment Note Next Visit Plan Continue OH FF, ABD and scapulohumeral ROM with LT recruitment. POC: Continue left shoulder rehab focused on postural correction, scapulohumeral rhythm, ROM, and strengthening to improve shoulder function and decrease pain.
--- NOTE | 2022-10-25 16:37 | PT.OTN ---
Current Diagnoses Primary osteoarthritis, left shoulder (10/25/22) Primary osteoarthritis, unspecified shoulder (10/25/22) Unspecified rotator cuff tear or rupture of left shoulder, not specified as traumatic (10/25/22) Bicipital tendinitis, left shoulder (10/25/22) Impingement syndrome of left shoulder (10/25/22) Physical Therapy Treatment Note PT-OP-A Visit Information Start: 07/03/22 10:31 Freq: Status: Active Protocol: Document 10/25/22 13:48 SW (Rec: 10/25/22 14:42 SW [id number]) Out-Patient Physical Therapy Visit Information Visit Information Visit Type Treatment Note Visit Note 10/24 Visit Start Time 13:47 Visit Stop Time 14:30 Total Visit Minutes 43 Visit Number 23 Number of ALBERENE STONE SETTER Visits 1 Precautions Precautions eczema on shoulder/ hand- careful with any adhesives or creams PT-OP-B Current Condition Start: 07/03/22 10:31 Freq: Status: Active Protocol: Document 09/17/22 15:18 SAK (Rec: 09/17/22 16:06 SAK [id number]) Current Condition History of Current Condition Onset Date a few years ago Current Complaints L shoulder pain History of Current Condition Shoulder started hurting when using the walker due to avascular necrosis and hip surgery. Shoulder has been getting somewhat better with d /cing aspercreme (has excema) and the walker. Injection did help for about 3 weeks in April. Currently using SPC in L UE. Prior Treatments and Tests 1. High-grade partial- thickness tear of the distal supraspinatus tendon. There is mild supraspinatus muscle atrophy. 2. Mild infraspinatus and subscapularis tendinosis. 3. Subcoracoid bursitis. 4. Kwaaqwtf-ep-gulppb glenohumeral joint degeneration. 5. Posterior labral tear with paralabral cysts. PT-OP-C Subjective Start: 07/03/22 10:31 Freq: Status: Active Protocol: Document 10/25/22 13:48 SW (Rec: 10/25/22 16:17 SW [id number]) OP-PT Subjective Patient Comments Patient Comments Pt reports doing well. She went out for the first time with just her trekking poles. She reports doing well with them, but still awkward to coordinate. PT-OP-F Manual Assessment Start: 07/03/22 10:31 Freq: Status: Active Protocol: Document 07/09/22 14:57 AMB (Rec: 07/09/22 15:04 AMB [id number]) Manual Assessments Soft Tissue Assessment Soft Tissue Mobility Assessment Tenderness over anterior shoulder over biceps tendons. No tenderness noted over scapula. Audible catches is shoulder when moving in and out of abduction. PT-OP-J Posture/Palpation/Skin Start: 07/03/22 10:31 Freq: Status: Active Protocol: Document 07/09/22 14:57 AMB (Rec: 07/09/22 15:04 AMB [id number]) Posture Evaluation Comments Posture Comments Forward shoulders, pt tends to let shoulder go up into shoulder elevation when using cane or when moving arm. PT-OP-K Range of Motion Start: 07/03/22 10:31 Freq: Status: Active Protocol: Document 10/09/22 14:32 SP (Rec: 10/09/22 15:33 SP [id number]) Shoulder Goniometric Range of Motion Shoulder Left Active Testing Position Sitting Flexion 140 Abduction 70 External Rotation at 0 degrees Abduction 74 Internal Rotation 85 Comments Seated L shld AROM: FF 140 (gained 3 deg) ABD (scaption): 130 deg ER:74 deg IR: T12 PT-OP-M Strength Start: 07/03/22 10:31 Freq: Status: Active Protocol: Document 07/09/22 13:04 AMB (Rec: 07/09/22 14:28 AMB [id number]) Shoulder Strength Shoulder Manual Muscle Testing Right Flexion 3+ Fair+ Abduction (C5) 3- Fair- External Rotation 4- Good- Internal Rotation 4 Good Left Flexion 4- Good- Abduction (C5) 3- Fair- External Rotation 3+ Fair+ Internal Rotation 4 Good PT-OP-Q Treatments Start: 07/03/22 10:31 Freq: Status: Active Protocol: Document 10/25/22 13:48 SW (Rec: 10/25/22 14:42 SW [id number]) Cardio Equipment Upper Body Ergometer (UBE) Duration (Minutes) 6 RPM 120 Seat Position 13 Height 3 Other F/B 30 sec each direction alternating Therapeutic Exercises Sitting Exercises Diaphragmatic Breathing Sitting Exercise Name Diaphragmatic Breathing Reps/Minutes x 3 min Comments Focus on decreasing tension/ promoting relaxation in cervical muscles scapular retraction Sitting Exercise Name seated shoulder posterior rolls/rows Side bilateral Resistance TB #2 Reps/Minutes 2x10 Comments good form, limited ER strength just resisted scap retract. scapular depression Sitting Exercise Name shld extension, AAROM ecccentric FF Side left Reps/Minutes 5 reps x2 Comments (waiting for miya use) Standing Exercises bicep curls Standing Exercise Name sitting Resistance 2# Reps/Minutes 2x10 t band ER Standing Exercise Name seated Side left Resistance peach Reps/Minutes x10 Comments cued scap/elbow depression t band IR Standing Exercise Name concentric IR, eccentric ER Side left Resistance peach Reps/Minutes x10 Comments cues for elbow at side, slow eccentric ERinhibit UT t band rows Side bilateral Resistance orange Reps/Minutes 10 Comments vc and manual cues for scapular movement, inhibit UT Manual Therapy Treatment Soft Tissue Mobilization L shoulder Body Location L UT, LS Mobilization Type Strumming,Sustained Pressure, Other Intensity/Depth Moderate Body Position Hooklying Comments arm at side, w/ FM head nods/ turns pre stretching post body blade. Joint Mobilizations scapula Direction pro/retraction, inf glide Grade III Body Position Sidelying Manual Techniques PROM L shld Type L shld: FF, ext, ER Body Position Sidelying Comments manua w/ fac inferior glide PT-OP-T Assessment and Plan Start: 07/03/22 10:31 Freq: Status: Active Protocol: Document 10/25/22 13:48 (Rec: 10/25/22 14:42 [id number]) Physical Therapy Assessment Goals Three Impairment HEP Short Term Goal (STG) Chayo will be independent and consistent with a HEP to improve her strength and ROM. STG Duration goal met, ongoing progression Supervisor Major [employer] Goal (LTG) Patient to demonstrate at least 4+/5 muscle strength and ROM WNL to allow her to return to all prior activities 08/14/22: added seated FF, HABD , supine scaption. 08/17/22: added resisted add, lateral counter walking, supine resisted ER and serratus press LTG Duration 10 weeks progressing 08/17/22 One Impairment ROM Short Term Goal (STG) Chayo will improve her left shoulder flexion to 160 degrees. 09/11: goal progress, improved to 160 with AAROM 10/09/22: 140 flexion, 130 ABD (modified), ER 74, T12 IR behind back. STG Duration 4 weeks progressing 10/09/22 Prison Goal (LTG) Courtney will improve her active shoulder abduction to at least 110 degrees. 08/14/22: seated 92 deg (AROM), supine 172 deg (AAROM) 09/06/22: L shld AROM seated: ABD 70 deg, FF 137 AROM 65 10/09/22: modified ABD 130 deg. LTG Duration 10 weeks progressing 10/09/22 Progress Towards Goals Progress Comments 10/09/22: Seated L shld AROM: FF 140 (gained 3 deg) ABD (scaption): 130 deg ER:74 deg IR: T12 Assessment Summary Assessment Chayo went out for the first time with only trekking poles, she reports it is doing well for the shoulder, but it is still awkward for her getting used to the reciprical motion. Tissue congestion in Levator/ UT, decreased tension post STM . Instructed pt on breathing exercise today to assist with tension she carries in shoulder/cervical regions, good feedback. Continued strengthing exercises for postural correction. Physical Therapy Plan Frequency and Duration Frequency of Treatment 2x/Week Duration of treatment (weeks) 10 Plan of Care Start Date 09/11/22 Plan of Care End Date 11/20/22 Therapeutic Interventions Therapeutic Interventions Gait Training,Home Exercise Program,Joint Mobilizations, Manual Therapy,Neuromuscular Re-education,Self-Care/Home Management,Therapeutic Activities,Therapeutic Exercises Modalities Cold Pack/Ice Massage,Electric Stimulation,Hot Packs Next Visit Focus/Plan Next Note Type Treatment Note Next Visit Plan Continue OH FF, ABD and scapulohumeral ROM with LT recruitment. POC: Continue left shoulder rehab focused on postural correction, scapulohumeral rhythm, ROM, and strengthening to improve shoulder function and decrease pain.
--- NOTE | 2022-10-31 16:46 | PT.OTN ---
Current Diagnoses Primary osteoarthritis, left shoulder (10/31/22) Primary osteoarthritis, unspecified shoulder (10/31/22) Unspecified rotator cuff tear or rupture of left shoulder, not specified as traumatic (10/31/22) Bicipital tendinitis, left shoulder (10/31/22) Impingement syndrome of left shoulder (10/31/22) Physical Therapy Treatment Note PT-OP-A Visit Information Start: 07/03/22 10:31 Freq: Status: Active Protocol: Document 10/31/22 15:23 (Rec: 10/31/22 16:43 [id number]) Out-Patient Physical Therapy Visit Information Visit Information Visit Type Treatment Note Visit Note 11/24 Visit Start Time 15:30 Visit Stop Time 16:15 Total Visit Minutes 45 Visit Number 24 Number of BAG HANGER Visits 2 Precautions Precautions eczema on shoulder/ hand- careful with any adhesives or creams PT-OP-B Current Condition Start: 07/03/22 10:31 Freq: Status: Active Protocol: Document 09/17/22 15:18 SAK (Rec: 09/17/22 16:06 SAK [id number]) Current Condition History of Current Condition Onset Date a few years ago Current Complaints L shoulder pain History of Current Condition Shoulder started hurting when using the walker due to avascular necrosis and hip surgery. Shoulder has been getting somewhat better with d /cing aspercreme (has excema) and the walker. Injection did help for about 3 weeks in April. Currently using SPC in L UE. Prior Treatments and Tests 1. High-grade partial- thickness tear of the distal supraspinatus tendon. There is mild supraspinatus muscle atrophy. 2. Mild infraspinatus and subscapularis tendinosis. 3. Subcoracoid bursitis. 4. Mlaqonyw-ff-dzukiq glenohumeral joint degeneration. 5. Posterior labral tear with paralabral cysts. PT-OP-C Subjective Start: 07/03/22 10:31 Freq: Status: Active Protocol: Document 10/31/22 15:23 (Rec: 10/31/22 16:43 [id number]) OP-PT Subjective Patient Comments Patient Comments Pt reports to therapy today with SPC. She is stiff in her shoulder, but doing ok. Trekking poles are hard to coordinate and she feels more stable with her cane. PT-OP-F Manual Assessment Start: 07/03/22 10:31 Freq: Status: Active Protocol: Document 07/09/22 14:57 AMB (Rec: 07/09/22 15:04 AMB [id number]) Manual Assessments Soft Tissue Assessment Soft Tissue Mobility Assessment Tenderness over anterior shoulder over biceps tendons. No tenderness noted over scapula. Audible catches is shoulder when moving in and out of abduction. PT-OP-J Posture/Palpation/Skin Start: 07/03/22 10:31 Freq: Status: Active Protocol: Document 07/09/22 14:57 AMB (Rec: 07/09/22 15:04 AMB [id number]) Posture Evaluation Comments Posture Comments Forward shoulders, pt tends to let shoulder go up into shoulder elevation when using cane or when moving arm. PT-OP-K Range of Motion Start: 07/03/22 10:31 Freq: Status: Active Protocol: Document 10/09/22 14:32 SP (Rec: 10/09/22 15:33 SP [id number]) Shoulder Goniometric Range of Motion Shoulder Left Active Testing Position Sitting Flexion 140 Abduction 70 External Rotation at 0 degrees Abduction 74 Internal Rotation 85 Comments Seated L shld AROM: FF 140 (gained 3 deg) ABD (scaption): 130 deg ER:74 deg IR: T12 PT-OP-M Strength Start: 07/03/22 10:31 Freq: Status: Active Protocol: Document 07/09/22 13:04 AMB (Rec: 07/09/22 14:28 AMB [id number]) Shoulder Strength Shoulder Manual Muscle Testing Right Flexion 3+ Fair+ Abduction (C5) 3- Fair- External Rotation 4- Good- Internal Rotation 4 Good Left Flexion 4- Good- Abduction (C5) 3- Fair- External Rotation 3+ Fair+ Internal Rotation 4 Good PT-OP-Q Treatments Start: 07/03/22 10:31 Freq: Status: Active Protocol: Document 10/31/22 15:23 SW (Rec: 10/31/22 16:43 SW [id number]) Cardio Equipment Upper Body Ergometer (UBE) Duration (Minutes) 6 RPM 120 Seat Position 13 Height 3 Other F/B 30 sec each direction alternating Therapeutic Exercises Sitting Exercises Abduction Resistance AROM Comments Difficulty inhibiting UT/LS compensation, improved with tactile cues Diaphragmatic Breathing Sitting Exercise Name Diaphragmatic Breathing, Reviewed HEP Reps/Minutes x 2 min Comments Focus on decreasing tension/ promoting relaxation in cervical muscles UT, LS stretching Side left Reps/Minutes 30 each Comments good feedback stretching scaption Sitting Exercise Name Reviewed HEP Side left Resistance AROM Reps/Minutes x4 reps post manual and AAROM 5 reps Comments cued no UT recruitment, tolerant range scapular retraction Sitting Exercise Name seated shoulder posterior rolls/rows Side bilateral Resistance TB #2 Reps/Minutes 2x10 Comments good form, limited ER strength just resisted scap retract. scapular depression Sitting Exercise Name AAROM ecccentric FF Side left Reps/Minutes 5 reps x2 Standing Exercises bicep curls Standing Exercise Name sitting Resistance 2# Reps/Minutes 2x10 t band ER Standing Exercise Name seated Side left Resistance peach Reps/Minutes x10 Comments cued scap/elbow depression t band IR Standing Exercise Name concentric IR, eccentric ER Side left Resistance peach Reps/Minutes x10 Comments cues for elbow at side, slow eccentric ERinhibit UT t band rows Side bilateral Resistance orange Reps/Minutes 10 Comments vc and manual cues for scapular movement, inhibit UT Manual Therapy Treatment Soft Tissue Mobilization L shoulder Body Location L UT, LS Mobilization Type Strumming,Sustained Pressure, Other Intensity/Depth Moderate Body Position Hooklying Comments arm at side, w/ FM head nods/ turns pre stretching post body blade. Joint Mobilizations scapula Direction pro/retraction, inf glide Grade III Body Position Sidelying Manual Techniques PROM L shld Type L shld: FF, ext, ER Body Position Sidelying Comments manua w/ fac inferior glide PT-OP-T Assessment and Plan Start: 07/03/22 10:31 Freq: Status: Active Protocol: Document 10/31/22 15:23 (Rec: 10/31/22 16:43 [id number]) Physical Therapy Assessment Goals Three Impairment HEP Short Term Goal (STG) Chayo will be independent and consistent with a HEP to improve her strength and ROM. STG Duration goal met, ongoing progression Construction Safety Consultant Goal (LTG) Patient to demonstrate at least 4+/5 muscle strength and ROM WNL to allow her to return to all prior activities 08/14/22: added seated FF, HABD , supine scaption. 08/17/22: added resisted add, lateral counter walking, supine resisted ER and serratus press LTG Duration 10 weeks progressing 08/17/22 One Impairment ROM Short Term Goal (STG) Chayo will improve her left shoulder flexion to 160 degrees. 09/11: goal progress, improved to 160 with AAROM 10/09/22: 140 flexion, 130 ABD (modified), ER 74, T12 IR behind back. STG Duration 4 weeks progressing 10/09/22 Construction Safety Consultant Goal (LTG) dDidi will improve her active shoulder abduction to at least 110 degrees. 08/14/22: seated 92 deg (AROM), supine 172 deg (AAROM) 09/06/22: L shld AROM seated: ABD 70 deg, FF 137 AROM 65 10/09/22: modified ABD 130 deg. LTG Duration 10 weeks progressing 10/09/22 Assessment Summary Assessment Pt reports stiffness in left shoulder present at the start of session, patient reports noticeable improvement in symptoms after today's session with decreased symptoms. Difficulty inhibiting UT/LS/ Cervical musculature during AROM, tactile cues helped inhibit, but heavy recruitment still present for compensation with ROM. Physical Therapy Plan Frequency and Duration Frequency of Treatment 2x/Week Duration of treatment (weeks) 10 Plan of Care Start Date 09/11/22 Plan of Care End Date 11/20/22 Therapeutic Interventions Therapeutic Interventions Gait Training,Home Exercise Program,Joint Mobilizations, Manual Therapy,Neuromuscular Re-education,Self-Care/Home Management,Therapeutic Activities,Therapeutic Exercises Modalities Cold Pack/Ice Massage,Electric Stimulation,Hot Packs Next Visit Focus/Plan Next Note Type Treatment Note Next Visit Plan Continue OH FF, ABD and scapulohumeral ROM with LT recruitment. POC: Continue left shoulder rehab focused on postural correction, scapulohumeral rhythm, ROM, and strengthening to improve shoulder function and decrease pain.
--- NOTE | 2022-11-06 15:17 | PT.OTN ---
Current Diagnoses Primary osteoarthritis, left shoulder (11/06/22) Primary osteoarthritis, unspecified shoulder (11/06/22) Unspecified rotator cuff tear or rupture of left shoulder, not specified as traumatic (11/06/22) Bicipital tendinitis, left shoulder (11/06/22) Impingement syndrome of left shoulder (11/06/22) Physical Therapy Treatment Note PT-OP-A Visit Information Start: 07/03/22 10:31 Freq: Status: Active Protocol: Document 11/06/22 14:31 SP (Rec: 11/06/22 15:31 SP [id number]) Out-Patient Physical Therapy Visit Information Visit Information Visit Type Treatment Note Visit Note 12/24 POC update next appt 11/20 Visit Start Time 14:36 Visit Stop Time 15:17 Total Visit Minutes 41 Visit Number 25 Number of IT SECURITY ARCHITECT Visits 3 Precautions Precautions eczema on shoulder/ hand- careful with any adhesives or creams PT-OP-B Current Condition Start: 07/03/22 10:31 Freq: Status: Active Protocol: Document 09/17/22 15:18 SAK (Rec: 09/17/22 16:06 SAK [id number]) Current Condition History of Current Condition Onset Date a few years ago Current Complaints L shoulder pain History of Current Condition Shoulder started hurting when using the walker due to avascular necrosis and hip surgery. Shoulder has been getting somewhat better with d /cing aspercreme (has excema) and the walker. Injection did help for about 3 weeks in April. Currently using SPC in L UE. Prior Treatments and Tests 1. High-grade partial- thickness tear of the distal supraspinatus tendon. There is mild supraspinatus muscle atrophy. 2. Mild infraspinatus and subscapularis tendinosis. 3. Subcoracoid bursitis. 4. Ufixejqc-ni-cyhnzb glenohumeral joint degeneration. 5. Posterior labral tear with paralabral cysts. PT-OP-C Subjective Start: 07/03/22 10:31 Freq: Status: Active Protocol: Document 11/06/22 14:31 SP (Rec: 11/06/22 15:31 SP [id number]) OP-PT Subjective Patient Comments Patient Comments Pt reports B shlds tiring using trek poles, have been looking forward to PT appt to help relax L shld. She was able to walk while carrying 1 gal water jug in RUE and felt more stable, SPC in LUE. PT-OP-F Manual Assessment Start: 07/03/22 10:31 Freq: Status: Active Protocol: Document 07/09/22 14:57 AMB (Rec: 07/09/22 15:04 AMB [id number]) Manual Assessments Soft Tissue Assessment Soft Tissue Mobility Assessment Tenderness over anterior shoulder over biceps tendons. No tenderness noted over scapula. Audible catches is shoulder when moving in and out of abduction. PT-OP-J Posture/Palpation/Skin Start: 07/03/22 10:31 Freq: Status: Active Protocol: Document 07/09/22 14:57 AMB (Rec: 07/09/22 15:04 AMB [id number]) Posture Evaluation Comments Posture Comments Forward shoulders, pt tends to let shoulder go up into shoulder elevation when using cane or when moving arm. PT-OP-K Range of Motion Start: 07/03/22 10:31 Freq: Status: Active Protocol: Document 11/06/22 14:31 SP (Rec: 11/06/22 15:31 SP [id number]) Shoulder Goniometric Range of Motion Shoulder Left Active Testing Position Sitting Flexion 142 Abduction 85 External Rotation at 0 degrees Abduction 58 Internal Rotation Behind Back (text) T12 Comments Seated L shld AROM: FF 142 (gained 2 deg) ABD (scaption): 85 deg (gained 15 deg) ER:78 deg IR: T12 (wiggles hand up back) supine: FF 175 deg ABD 135 deg ER (45 deg abd) 58 deg PT-OP-M Strength Start: 07/03/22 10:31 Freq: Status: Active Protocol: Document 07/09/22 13:04 AMB (Rec: 07/09/22 14:28 AMB [id number]) Shoulder Strength Shoulder Manual Muscle Testing Right Flexion 3+ Fair+ Abduction (C5) 3- Fair- External Rotation 4- Good- Internal Rotation 4 Good Left Flexion 4- Good- Abduction (C5) 3- Fair- External Rotation 3+ Fair+ Internal Rotation 4 Good PT-OP-Q Treatments Start: 07/03/22 10:31 Freq: Status: Active Protocol: Document 11/06/22 14:31 SP (Rec: 11/06/22 15:31 SP [id number]) Cardio Equipment Upper Body Ergometer (UBE) Duration (Minutes) 6 RPM 120 Seat Position 13 Height 3 Other F/B 30 sec each direction alternating Therapeutic Exercises Supine Exercises L shld ER Supine Exercise Name reviewed HEP (45 deg abd)- 58 deg Side left Resistance AROM Reps/Minutes x10 Comments painfree AAROM Supine Exercise Name FF 170* AROM, ABD 135 deg, ER 58 deg Side left Resistance AROM Reps/Minutes x10 FF, x3 reps ABD Comments improved slow pacing mvt Sitting Exercises scaption Sitting Exercise Name assess AROM 11/06: ff, abd, er, ir Side left Resistance AROM Reps/Minutes see measurements Comments cued no UT recruitment Standing Exercises IR stretch Standing Exercise Name assess ROM 11/06/22 Side left Resistance AROM Reps/Minutes 1 reps T12 Comments seated shoulder extension Side left Resistance TB #2 Reps/Minutes x20 Comments good form just touch discomfort L shld t band ER Standing Exercise Name seated Side left Resistance peach (states unable increase resistance) Reps/Minutes x10 Comments tactile cue arm at side, no ext compensation t band IR Standing Exercise Name concentric IR, eccentric ER Side left Resistance peach (states unable increase resistance) Reps/Minutes x10 Comments cues for elbow at side, slow eccentric ERinhibit UT t band rows Side bilateral Resistance orange Reps/Minutes 10 Comments good form Manual Therapy Treatment Soft Tissue Mobilization L shoulder Body Location L UT, LS Mobilization Type Strumming,Sustained Pressure, Other Intensity/Depth Moderate Body Position Sidelying Joint Mobilizations scapula Direction pro/retraction, inf glide Grade III Body Position Sidelying L GH Jt Joint L shld Direction humeral inf glide Grade II Body Position Hooklying Comments w/ ABD FM and between sets AAROM PT-OP-T Assessment and Plan Start: 07/03/22 10:31 Freq: Status: Active Protocol: Document 11/06/22 14:31 SP (Rec: 11/06/22 15:31 SP [id number]) Physical Therapy Assessment Goals Three Impairment HEP Short Term Goal (STG) Chayo will be independent and consistent with a HEP to improve her strength and ROM. STG Duration goal met, ongoing progression Nursing Home Goal (LTG) Patient to demonstrate at least 4+/5 muscle strength and ROM WNL to allow her to return to all prior activities 08/14/22: added seated FF, HABD , supine scaption. 08/17/22: added resisted add, lateral counter walking, supine resisted ER and serratus press LTG Duration 10 weeks progressing 08/17/22 One Impairment ROM Short Term Goal (STG) Chayo will improve her left shoulder flexion to 160 degrees. 09/11: goal progress, improved to 160 with AAROM 10/09/22: 140 flexion, 130 ABD (modified), ER 74, T12 IR behind back. 11/06/22: 142 deg seated, 175 deg supine. STG Duration 4 weeks progressing 11/06/22 Nursing Home Goal (LTG) dDidi will improve her active shoulder abduction to at least 110 degrees. 08/14/22: seated 92 deg (AROM), supine 172 deg (AAROM) 09/06/22: L shld AROM seated: ABD 70 deg, FF 137 AROM 65 10/09/22: modified ABD 130 deg. 11/06/22: Modified ABD seated 85deg, supine 135 deg LTG Duration 10 weeks progressing Progress Towards Goals Progress Comments Seated L shld AROM: FF 142 (gained 2 deg) ABD (scaption): 85 deg (gained 15 deg) ER:78 deg IR: T12 (wiggles hand up back) supine: FF 175 deg ABD 135 deg ER (45 deg abd) 58 deg Assessment Summary Assessment Pt making gains in AROM. Reports still continues have pain L shld dueto WB pressure through SPC/trek pole to support during gait of R hip weakness. She reported when carrys gal jug in RUE use SPC less LUE WB on SPC. Physical Therapy Plan Frequency and Duration Frequency of Treatment 2x/Week Duration of treatment (weeks) 10 Plan of Care Start Date 09/11/22 Plan of Care End Date 11/20/22 Therapeutic Interventions Therapeutic Interventions Gait Training,Home Exercise Program,Joint Mobilizations, Manual Therapy,Neuromuscular Re-education,Self-Care/Home Management,Therapeutic Activities,Therapeutic Exercises Modalities Cold Pack/Ice Massage,Electric Stimulation,Hot Packs Next Visit Focus/Plan Next Note Type Progress Note Next Visit Plan Updated POC: 11/20. See updated measurements. POC: Continue left shoulder rehab focused on postural correction, scapulohumeral rhythm, ROM, and strengthening to improve shoulder function and decrease pain.
--- NOTE | 2022-11-20 14:25 | PT.OPPOC ---
Physical, Occupational & Speech Therapy At [facility] Current Diagnoses Primary osteoarthritis, left shoulder (11/20/22) Primary osteoarthritis, unspecified shoulder (11/20/22) Unspecified rotator cuff tear or rupture of left shoulder, not specified as traumatic (11/20/22) Bicipital tendinitis, left shoulder (11/20/22) Impingement syndrome of left shoulder (11/20/22) Visit Care Team Role Provider Type ENEIDA Bradley Family Provider [employer] Salesperson Primary Care Provider Specialty: Family Practice Address: [address] [place] [address], [id number] Email: [email or web address] Rashid DO Attending Provider Non-Staff Referring Provider Specialty: Orthopedic Surgery Address: [address] [place] [address], [id number] Email: Plan Of Care PT-OP-T Assessment and Plan Start: 07/03/22 10:31 Freq: Status: Active Protocol: Document 11/20/22 14:51 AMB (Rec: 11/20/22 15:52 AMB [id number]) Physical Therapy Assessment Goals Three Impairment HEP Short Term Goal (STG) Chayo will be independent and consistent with a HEP to improve her strength and ROM. STG Duration goal met, ongoing progression Jigsawyer Goal (LTG) Patient to demonstrate at least 4+/5 muscle strength and ROM WNL to allow her to return to all prior activities 08/14/22: added seated FF, HABD , supine scaption. 08/17/22: added resisted add, lateral counter walking, supine resisted ER and serratus press LTG Duration NOT MET One Impairment ROM Short Term Goal (STG) Chayo will improve her left shoulder flexion to 160 degrees. 09/11: goal progress, improved to 160 with AAROM 10/09/22: 140 flexion, 130 ABD (modified), ER 74, T12 IR behind back. 11/06/22: 142 deg seated, 175 deg supine. STG Duration 4 weeks progressing Jigsawyer Goal (LTG) dDidi will improve her active shoulder abduction to at least 110 degrees. 08/14/22: seated 92 deg (AROM), supine 172 deg (AAROM) 09/06/22: L shld AROM seated: ABD 70 deg, FF 137 AROM 65 10/09/22: modified ABD 130 deg. 11/06/22: Modified ABD seated 85deg, supine 135 deg 11/20 62 LTG Duration 10 weeks progressing Assessment Summary Assessment Pt making gains in AROM, but did discuss that shoulder will likely always have some level of impairment and that pt will need to be independent with HEP so that she can independently progress soon. Pt's PROM remains excellent considering her shoulder dysfunction, but her ability to lift the arm above shoulder height especially into abduction is quite limited. Pt continues to have pain and weakness above shoulder height . Discussed likely progression of exercises and PT plan. Physical Therapy Plan Frequency and Duration Frequency of Treatment 1x/Week Duration of treatment (weeks) 6 Plan of Care Start Date 11/20/22 Plan of Care End Date 01/01/23 Therapeutic Interventions Therapeutic Interventions Gait Training,Home Exercise Program,Joint Mobilizations, Manual Therapy,Neuromuscular Re-education,Self-Care/Home Management,Therapeutic Activities,Therapeutic Exercises Modalities Cold Pack/Ice Massage,Electric Stimulation,Hot Packs Next Visit Focus/Plan Next Note Type Progress Note Next Visit Plan Pt's goals are to improve AROM for above shoulder height activity. POC: Continue left shoulder rehab focused on postural correction, scapulohumeral rhythm, ROM, and strengthening to improve shoulder function and decrease pain. Plan of Care Dates Plan of Care Start Date 11/20/22 Plan of Care End Date 01/01/23 Electronically Signed by: Caroline Calloway, PT 11/23/22 9221 If you are in agreement with this Plan of Care, please return a signed and dated copy. I have reviewed this Plan of Care and certify that the skilled therapy services above are required to meet the patient?s needs. Physician Signature Date Printed Name and Credentials Clinical Instructor Signature Printed Name and Credentials
--- NOTE | 2022-11-20 14:25 | PT.OTN ---
Current Diagnoses Primary osteoarthritis, left shoulder (11/20/22) Primary osteoarthritis, unspecified shoulder (11/20/22) Unspecified rotator cuff tear or rupture of left shoulder, not specified as traumatic (11/20/22) Bicipital tendinitis, left shoulder (11/20/22) Impingement syndrome of left shoulder (11/20/22) Physical Therapy Treatment Note PT-OP-A Visit Information Start: 07/03/22 10:31 Freq: Status: Active Protocol: Document 11/20/22 14:51 AMB (Rec: 11/20/22 15:52 AMB [id number]) Out-Patient Physical Therapy Visit Information Visit Information Visit Type Progress Note Visit Note POC update next appt 11/20 Visit Start Time 14:30 Visit Stop Time 15:15 Total Visit Minutes 41 Visit Number 26 PT-OP-B Current Condition Start: 07/03/22 10:31 Freq: Status: Active Protocol: Document 09/17/22 15:18 SAK (Rec: 09/17/22 16:06 SAK [id number]) Current Condition History of Current Condition Onset Date a few years ago Current Complaints L shoulder pain History of Current Condition Shoulder started hurting when using the walker due to avascular necrosis and hip surgery. Shoulder has been getting somewhat better with d /cing aspercreme (has excema) and the walker. Injection did help for about 3 weeks in April. Currently using SPC in L UE. Prior Treatments and Tests 1. High-grade partial- thickness tear of the distal supraspinatus tendon. There is mild supraspinatus muscle atrophy. 2. Mild infraspinatus and subscapularis tendinosis. 3. Subcoracoid bursitis. 4. Xuiprkhx-ca-rglera glenohumeral joint degeneration. 5. Posterior labral tear with paralabral cysts. PT-OP-C Subjective Start: 07/03/22 10:31 Freq: Status: Active Protocol: Document 11/06/22 14:31 SP (Rec: 11/06/22 15:31 SP [id number]) OP-PT Subjective Patient Comments Patient Comments Pt reports B shlds tiring using trek poles, have been looking forward to PT appt to help relax L shld. She was able to walk while carrying 1 gal water jug in RUE and felt more stable, SPC in LUE. PT-OP-F Manual Assessment Start: 07/03/22 10:31 Freq: Status: Active Protocol: Document 07/09/22 14:57 AMB (Rec: 07/09/22 15:04 AMB [id number]) Manual Assessments Soft Tissue Assessment Soft Tissue Mobility Assessment Tenderness over anterior shoulder over biceps tendons. No tenderness noted over scapula. Audible catches is shoulder when moving in and out of abduction. PT-OP-J Posture/Palpation/Skin Start: 07/03/22 10:31 Freq: Status: Active Protocol: Document 07/09/22 14:57 AMB (Rec: 07/09/22 15:04 AMB [id number]) Posture Evaluation Comments Posture Comments Forward shoulders, pt tends to let shoulder go up into shoulder elevation when using cane or when moving arm. PT-OP-K Range of Motion Start: 07/03/22 10:31 Freq: Status: Active Protocol: Document 11/06/22 14:31 SP (Rec: 11/06/22 15:31 SP [id number]) Shoulder Goniometric Range of Motion Shoulder Left Active Testing Position Sitting Flexion 142 Abduction 85 External Rotation at 0 degrees Abduction 58 Internal Rotation Behind Back (text) T12 Comments Seated L shld AROM: FF 142 (gained 2 deg) ABD (scaption): 85 deg (gained 15 deg) ER:78 deg IR: T12 (wiggles hand up back) supine: FF 175 deg ABD 135 deg ER (45 deg abd) 58 deg PT-OP-M Strength Start: 07/03/22 10:31 Freq: Status: Active Protocol: Document 07/09/22 13:04 AMB (Rec: 07/09/22 14:28 AMB [id number]) Shoulder Strength Shoulder Manual Muscle Testing Right Flexion 3+ Fair+ Abduction (C5) 3- Fair- External Rotation 4- Good- Internal Rotation 4 Good Left Flexion 4- Good- Abduction (C5) 3- Fair- External Rotation 3+ Fair+ Internal Rotation 4 Good PT-OP-Q Treatments Start: 07/03/22 10:31 Freq: Status: Active Protocol: Document 11/20/22 14:30 AMB (Rec: 11/23/22 14:07 AMB [id number]) Therapeutic Exercises Supine Exercises serratus press Supine Exercise Name HEP Side left Resistance AROM Reps/Minutes x10 isometrics Supine Exercise Name at 90 degrees flexion-- gentle Side left Reps/Minutes 2x10 Comments flex, ext, horizontal abd, add Standing Exercises bicep curls Standing Exercise Name sitting Resistance 2# Reps/Minutes 2x10 t band ER Standing Exercise Name seated Side left Resistance peach (states unable increase resistance) Reps/Minutes x10 Comments tactile cue arm at side, no ext compensation t band IR Standing Exercise Name concentric IR, eccentric ER Side left Resistance peach (states unable increase resistance) Reps/Minutes x10 Comments cues for elbow at side, slow eccentric ERinhibit UT t band rows Side bilateral Resistance orange Reps/Minutes 10 Comments good form Manual Therapy Treatment Soft Tissue Mobilization L shoulder Body Location L UT, LS Mobilization Type Strumming,Sustained Pressure, Other Intensity/Depth Moderate Body Position Sidelying Joint Mobilizations L GH Jt Joint L shld Direction humeral inf glide Grade II Body Position Hooklying Comments w/ ABD FM and between sets AAROM Manual Techniques PROM L shld Type L shld: FF, ext, ER Body Position Sidelying Comments manua w/ fac inferior glide PT-OP-T Assessment and Plan Start: 07/03/22 10:31 Freq: Status: Active Protocol: Document 11/20/22 14:51 AMB (Rec: 11/20/22 15:52 AMB [id number]) Physical Therapy Assessment Goals Three Impairment HEP Short Term Goal (STG) Chayo will be independent and consistent with a HEP to improve her strength and ROM. STG Duration goal met, ongoing progression Snf Goal (LTG) Patient to demonstrate at least 4+/5 muscle strength and ROM WNL to allow her to return to all prior activities 08/14/22: added seated FF, HABD , supine scaption. 08/17/22: added resisted add, lateral counter walking, supine resisted ER and serratus press LTG Duration NOT MET One Impairment ROM Short Term Goal (STG) Chayo will improve her left shoulder flexion to 160 degrees. 09/11: goal progress, improved to 160 with AAROM 10/09/22: 140 flexion, 130 ABD (modified), ER 74, T12 IR behind back. 11/06/22: 142 deg seated, 175 deg supine. STG Duration 4 weeks progressing Snf Goal (LTG) dDidi will improve her active shoulder abduction to at least 110 degrees. 08/14/22: seated 92 deg (AROM), supine 172 deg (AAROM) 09/06/22: L shld AROM seated: ABD 70 deg, FF 137 AROM 65 10/09/22: modified ABD 130 deg. 11/06/22: Modified ABD seated 85deg, supine 135 deg 11/20 62 LTG Duration 10 weeks progressing Assessment Summary Assessment Pt making gains in AROM, but did discuss that shoulder will likely always have some level of impairment and that pt will need to be independent with HEP so that she can independently progress soon. Pt's PROM remains excellent considering her shoulder dysfunction, but her ability to lift the arm above shoulder height especially into abduction is quite limited. Pt continues to have pain and weakness above shoulder height . Discussed likely progression of exercises and PT plan. Physical Therapy Plan Frequency and Duration Frequency of Treatment 1x/Week Duration of treatment (weeks) 6 Plan of Care Start Date 11/20/22 Plan of Care End Date 01/01/23 Therapeutic Interventions Therapeutic Interventions Gait Training,Home Exercise Program,Joint Mobilizations, Manual Therapy,Neuromuscular Re-education,Self-Care/Home Management,Therapeutic Activities,Therapeutic Exercises Modalities Cold Pack/Ice Massage,Electric Stimulation,Hot Packs Next Visit Focus/Plan Next Note Type Progress Note Next Visit Plan Pt's goals are to improve AROM for above shoulder height activity. POC: Continue left shoulder rehab focused on postural correction, scapulohumeral rhythm, ROM, and strengthening to improve shoulder function and decrease pain.
--- NOTE | 2022-11-29 11:31 | PT.OTN ---
Current Diagnoses Primary osteoarthritis, left shoulder (11/29/22) Primary osteoarthritis, unspecified shoulder (11/29/22) Unspecified rotator cuff tear or rupture of left shoulder, not specified as traumatic (11/29/22) Bicipital tendinitis, left shoulder (11/29/22) Impingement syndrome of left shoulder (11/29/22) Physical Therapy Treatment Note PT-OP-A Visit Information Start: 07/03/22 10:31 Freq: Status: Active Protocol: Document 11/29/22 10:53 SP (Rec: 11/29/22 11:41 SP [id number]) Out-Patient Physical Therapy Visit Information Visit Information Visit Type Treatment Note Visit Note 06/26 POC update next appt 01/01 Visit Start Time 10:53 Visit Stop Time 11:31 Total Visit Minutes 38 Visit Number 27 Number of TIMBER WATCHMAN Visits 1 Precautions Precautions eczema on shoulder/ hand- careful with any adhesives or creams PT-OP-B Current Condition Start: 07/03/22 10:31 Freq: Status: Active Protocol: Document 09/17/22 15:18 SAK (Rec: 09/17/22 16:06 SAK [id number]) Current Condition History of Current Condition Onset Date a few years ago Current Complaints L shoulder pain History of Current Condition Shoulder started hurting when using the walker due to avascular necrosis and hip surgery. Shoulder has been getting somewhat better with d /cing aspercreme (has excema) and the walker. Injection did help for about 3 weeks in April. Currently using SPC in L UE. Prior Treatments and Tests 1. High-grade partial- thickness tear of the distal supraspinatus tendon. There is mild supraspinatus muscle atrophy. 2. Mild infraspinatus and subscapularis tendinosis. 3. Subcoracoid bursitis. 4. Cqoiqzco-da-aufzkj glenohumeral joint degeneration. 5. Posterior labral tear with paralabral cysts. PT-OP-C Subjective Start: 07/03/22 10:31 Freq: Status: Active Protocol: Document 11/29/22 10:53 SP (Rec: 11/29/22 11:41 SP [id number]) OP-PT Subjective Patient Comments Patient Comments Pt PT-OP-F Manual Assessment Start: 07/03/22 10:31 Freq: Status: Active Protocol: Document 07/09/22 14:57 AMB (Rec: 07/09/22 15:04 AMB [id number]) Manual Assessments Soft Tissue Assessment Soft Tissue Mobility Assessment Tenderness over anterior shoulder over biceps tendons. No tenderness noted over scapula. Audible catches is shoulder when moving in and out of abduction. PT-OP-J Posture/Palpation/Skin Start: 07/03/22 10:31 Freq: Status: Active Protocol: Document 07/09/22 14:57 AMB (Rec: 07/09/22 15:04 AMB [id number]) Posture Evaluation Comments Posture Comments Forward shoulders, pt tends to let shoulder go up into shoulder elevation when using cane or when moving arm. PT-OP-K Range of Motion Start: 07/03/22 10:31 Freq: Status: Active Protocol: Document 11/06/22 14:31 SP (Rec: 11/06/22 15:31 SP [id number]) Shoulder Goniometric Range of Motion Shoulder Left Active Testing Position Sitting Flexion 142 Abduction 85 External Rotation at 0 degrees Abduction 58 Internal Rotation Behind Back (text) T12 Comments Seated L shld AROM: FF 142 (gained 2 deg) ABD (scaption): 85 deg (gained 15 deg) ER:78 deg IR: T12 (wiggles hand up back) supine: FF 175 deg ABD 135 deg ER (45 deg abd) 58 deg PT-OP-M Strength Start: 07/03/22 10:31 Freq: Status: Active Protocol: Document 07/09/22 13:04 AMB (Rec: 07/09/22 14:28 AMB [id number]) Shoulder Strength Shoulder Manual Muscle Testing Right Flexion 3+ Fair+ Abduction (C5) 3- Fair- External Rotation 4- Good- Internal Rotation 4 Good Left Flexion 4- Good- Abduction (C5) 3- Fair- External Rotation 3+ Fair+ Internal Rotation 4 Good PT-OP-Q Treatments Start: 07/03/22 10:31 Freq: Status: Active Protocol: Document 11/29/22 10:53 SP (Rec: 11/29/22 11:41 SP [id number]) Therapeutic Exercises Supine Exercises ABC Rhythmic Stab Supine Exercise Name added to HEP Side left Resistance DB #1> #2 Reps/Minutes a-z Comments cued small quick motions, painfree occasional crunch then went away w/ reps serratus press Supine Exercise Name HEP Side left Resistance AROM Reps/Minutes x10 Comments good scapular ROM with cues and target to press to isometrics Supine Exercise Name at 90 degrees flexion-- gentle Side left Reps/Minutes x10 Comments flex, ext, horizontal abd & add Standing Exercises bicep curls Standing Exercise Name sitting Side bilateral Resistance 2# Reps/Minutes x20 Comments occasional cue for elongation & Scap set shoulder extension Side left Resistance TB #2 Reps/Minutes x20 Comments cued elongation posture, scap set con/ecc t band ER Standing Exercise Name seated Side left Resistance peach (unable increase resistance) Reps/Minutes x10 Comments tactil cue elbow at side, scap depression/retract improved less/no crunch t band IR Standing Exercise Name concentric IR, eccentric ER Side left Resistance peach (unable increase resistance) Reps/Minutes x10 Comments cues for elbow at side, slow eccentric ERinhibit UT t band rows Side bilateral Resistance orange TB Reps/Minutes 10 Comments cued elongation posture, scap set con/ecc wall walk Standing Exercise Name FF AROM as OH contact wall for support further Side bilateral Reps/Minutes x5 reps Comments tiring but found contact wall helpful Manual Therapy Treatment Soft Tissue Mobilization L shoulder Body Location L UT, LS, pec, infraspinatus bicep Mobilization Type Strumming,Sustained Pressure, Other Intensity/Depth Moderate Body Position Hooklying Comments manual and w/ FM PROM FF, serratus punch, ER Joint Mobilizations L GH Jt Joint L shld Direction humeral inf glide Grade II Body Position Hooklying Comments w/ FF and ABD FM and between sets AAROM Manual Techniques PROM L shld Type L shld: FF, ext, ER Body Position Sidelying Comments manua w/ fac inferior glide PT-OP-T Assessment and Plan Start: 07/03/22 10:31 Freq: Status: Active Protocol: Document 11/29/22 10:53 SP (Rec: 11/29/22 11:41 SP [id number]) Physical Therapy Assessment Goals Three Impairment HEP Short Term Goal (STG) Chayo will be independent and consistent with a HEP to improve her strength and ROM. STG Duration goal met, ongoing progression Property And Equipment Clerk Goal (LTG) Patient to demonstrate at least 4+/5 muscle strength and ROM WNL to allow her to return to all prior activities 08/14/22: added seated FF, HABD , supine scaption. 08/17/22: added resisted add, lateral counter walking, supine resisted ER and serratus press LTG Duration NOT MET One Impairment ROM Short Term Goal (STG) Chayo will improve her left shoulder flexion to 160 degrees. 09/11: goal progress, improved to 160 with AAROM 10/09/22: 140 flexion, 130 ABD (modified), ER 74, T12 IR behind back. 11/06/22: 142 deg seated, 175 deg supine. STG Duration 4 weeks progressing [facility] Goal (LTG) dDidi will improve her active shoulder abduction to at least 110 degrees. 08/14/22: seated 92 deg (AROM), supine 172 deg (AAROM) 09/06/22: L shld AROM seated: ABD 70 deg, FF 137 AROM 65 10/09/22: modified ABD 130 deg. 11/06/22: Modified ABD seated 85deg, supine 135 deg 11/20 62 LTG Duration 10 weeks progressing Assessment Summary Assessment Pt improved scap set shld ER/ IR post cue and reaching OH seated then standing contact wall for support, less UT compensation to allow reachig into cupboards. Physical Therapy Plan Frequency and Duration Frequency of Treatment 1x/Week Duration of treatment (weeks) 6 Plan of Care Start Date 11/20/22 Plan of Care End Date 01/01/23 Therapeutic Interventions Therapeutic Interventions Gait Training,Home Exercise Program,Joint Mobilizations, Manual Therapy,Neuromuscular Re-education,Self-Care/Home Management,Therapeutic Activities,Therapeutic Exercises Modalities Cold Pack/Ice Massage,Electric Stimulation,Hot Packs Next Visit Focus/Plan Next Note Type Progress Note Next Visit Plan add more appts next tx. Pt's goals are to improve AROM for above shoulder height activity . POC: Continue left shoulder rehab focused on postural correction, scapulohumeral rhythm, ROM, and strengthening to improve shoulder function and decrease pain.
--- NOTE | 2022-12-05 15:15 | PT.OTN ---
Current Diagnoses Primary osteoarthritis, left shoulder (12/05/22) Primary osteoarthritis, unspecified shoulder (12/05/22) Unspecified rotator cuff tear or rupture of left shoulder, not specified as traumatic (12/05/22) Bicipital tendinitis, left shoulder (12/05/22) Impingement syndrome of left shoulder (12/05/22) Physical Therapy Treatment Note PT-OP-A Visit Information Start: 07/03/22 10:31 Freq: Status: Active Protocol: Document 12/05/22 14:32 SP (Rec: 12/05/22 15:22 SP [id number]) Out-Patient Physical Therapy Visit Information Visit Information Visit Type Treatment Note Visit Note 07/27 POC update next appt 01/01 Visit Start Time 14:32 Visit Stop Time 15:15 Total Visit Minutes 43 Visit Number 28 Number of INVESTIGATIVE ASSISTANT Visits 2 Precautions Precautions eczema on shoulder/ hand- careful with any adhesives or creams PT-OP-B Current Condition Start: 07/03/22 10:31 Freq: Status: Active Protocol: Document 09/17/22 15:18 SAK (Rec: 09/17/22 16:06 SAK [id number]) Current Condition History of Current Condition Onset Date a few years ago Current Complaints L shoulder pain History of Current Condition Shoulder started hurting when using the walker due to avascular necrosis and hip surgery. Shoulder has been getting somewhat better with d /cing aspercreme (has excema) and the walker. Injection did help for about 3 weeks in April. Currently using SPC in L UE. Prior Treatments and Tests 1. High-grade partial- thickness tear of the distal supraspinatus tendon. There is mild supraspinatus muscle atrophy. 2. Mild infraspinatus and subscapularis tendinosis. 3. Subcoracoid bursitis. 4. Mxfsnwsw-lf-yybxlh glenohumeral joint degeneration. 5. Posterior labral tear with paralabral cysts. PT-OP-C Subjective Start: 07/03/22 10:31 Freq: Status: Active Protocol: Document 12/05/22 14:32 SP (Rec: 12/05/22 15:22 SP [id number]) OP-PT Subjective Patient Comments Patient Comments Pt reports pain over lateral L shld, paints distal deltoid. PT-OP-F Manual Assessment Start: 07/03/22 10:31 Freq: Status: Active Protocol: Document 07/09/22 14:57 AMB (Rec: 07/09/22 15:04 AMB [id number]) Manual Assessments Soft Tissue Assessment Soft Tissue Mobility Assessment Tenderness over anterior shoulder over biceps tendons. No tenderness noted over scapula. Audible catches is shoulder when moving in and out of abduction. PT-OP-J Posture/Palpation/Skin Start: 07/03/22 10:31 Freq: Status: Active Protocol: Document 07/09/22 14:57 AMB (Rec: 07/09/22 15:04 AMB [id number]) Posture Evaluation Comments Posture Comments Forward shoulders, pt tends to let shoulder go up into shoulder elevation when using cane or when moving arm. PT-OP-K Range of Motion Start: 07/03/22 10:31 Freq: Status: Active Protocol: Document 12/05/22 14:32 SP (Rec: 12/05/22 15:22 SP [id number]) Shoulder Goniometric Range of Motion Shoulder Left Active Shoulder ROM WFL No Testing Position Sitting Flexion 152 Abduction 81 External Rotation at 0 degrees Abduction 82 Internal Rotation Behind Back (text) T11 Comments Seated L shld AROM 12/05/22: FF 152 (gained 10 deg) ABD (scaption): 81 deg ( decrease 4deg) ER:82 deg (gained 2 deg) IR: T11 (wiggles hand up back, gained superior from T12) PT-OP-M Strength Start: 07/03/22 10:31 Freq: Status: Active Protocol: Document 07/09/22 13:04 AMB (Rec: 07/09/22 14:28 AMB [id number]) Shoulder Strength Shoulder Manual Muscle Testing Right Flexion 3+ Fair+ Abduction (C5) 3- Fair- External Rotation 4- Good- Internal Rotation 4 Good Left Flexion 4- Good- Abduction (C5) 3- Fair- External Rotation 3+ Fair+ Internal Rotation 4 Good PT-OP-Q Treatments Start: 07/03/22 10:31 Freq: Status: Active Protocol: Document 12/05/22 14:32 SP (Rec: 12/05/22 15:22 SP [id number]) Cardio Equipment Upper Body Ergometer (UBE) Duration (Minutes) 6 RPM 100 Seat Position 15>13 Height 3 Other F/B 30 sec each direction alternating Therapeutic Exercises Supine Exercises ABC Rhythmic Stab Supine Exercise Name reviewed HEP Side left Resistance DB #2 Reps/Minutes a-z Comments cued small quick motions, painfree occasional crunch then went away w/ reps Sitting Exercises cross body stretch Sitting Exercise Name added to HEP Side left Resistance R UE supporting Comments good deltoid stretch eccentric flexion, abd Sitting Exercise Name initiated in PT Side left Resistance TB #2 Equipment Used mirror assist scap alignment, level shld Reps/Minutes 5 reps each direction Comments occ cue LT fac. pulleys Sitting Exercise Name flexion scaption, Abd Reps/Minutes 10x ea direction Comments cues for pain-free ROM, thumb up Standing Exercises t band ER Standing Exercise Name standing Side left Resistance orange- crepitis lessens with reps (challenge but good form small range) Equipment Used towel under arm Reps/Minutes x10 Comments tactil cue elbow at side, scap depression/retract improved less/no crunch t band IR Standing Exercise Name Standing: concentric IR, eccentric ER Side left Resistance orange TB Equipment Used towel under arm Reps/Minutes x10 Comments good form today Manual Therapy Treatment Soft Tissue Mobilization L shoulder Body Location L deltoid Mobilization Type Strumming,Sustained Pressure, Other Intensity/Depth Moderate Body Position Hooklying Comments manual and w/ FM PROM FF, serratus punch, ER Joint Mobilizations L GH Jt Joint L shld Direction AP glide Grade II Body Position seated Comments manual STM and MWM IR/ER Self-Care/Home Management Treatment Education Patient Education Body Mechanics,Pain Management ,Posture Other Education Short time discussion use B trek poles past noted lessens pressure on L and more equal active scap stab vs SPC use on L less endurance thus compensation proximal WB into GH jt and deltoid and anterior shld stabilization over use. Pt understood but limits her carrying items. PT-OP-T Assessment and Plan Start: 07/03/22 10:31 Freq: Status: Active Protocol: Document 12/05/22 14:32 SP (Rec: 12/05/22 15:22 SP [id number]) Physical Therapy Assessment Goals Three Impairment HEP Short Term Goal (STG) Chayo will be independent and consistent with a HEP to improve her strength and ROM. STG Duration goal met, ongoing progression Retirement Goal (LTG) Patient to demonstrate at least 4+/5 muscle strength and ROM WNL to allow her to return to all prior activities 08/14/22: added seated FF, HABD , supine scaption. 08/17/22: added resisted add, lateral counter walking, supine resisted ER and serratus press LTG Duration NOT MET One Impairment ROM Short Term Goal (STG) Chayo will improve her left shoulder flexion to 160 degrees. 09/11: goal progress, improved to 160 with AAROM 10/09/22: 140 flexion, 130 ABD (modified), ER 74, T12 IR behind back. 11/06/22: 142 deg seated, 175 deg supine. 12/05/22: progressing 152 deg from 142 in October. STG Duration 4 weeks progressing 12/05/22 Apiculture Teacher Goal (LTG) dDidi will improve her active shoulder abduction to at least 110 degrees. 08/14/22: seated 92 deg (AROM), supine 172 deg (AAROM) 09/06/22: L shld AROM seated: ABD 70 deg, FF 137 AROM 65 10/09/22: modified ABD 130 deg. 11/06/22: Modified ABD seated 85deg, supine 135 deg 11/20: 62 12/05/22: 81 deg deg AROM LTG Duration 10 weeks progressing 12/05/22 Progress Towards Goals Progress Comments Seated L shld AROM 12/05/22: FF 152 (gained 10 deg) ABD (scaption): 81 deg ( decrease 4deg) ER: 82 deg (gained 2 deg) IR: T11 (wiggles hand up back, gained superior from T12) Assessment Summary Assessment Pt improved little to no L GH Jt friction with added eccentric FF, ABD seated under resistance this tx. She is making gains in FF and ER but continues to be limited active ABD and UE support required to support BLEs. Physical Therapy Plan Frequency and Duration Frequency of Treatment 1x/Week Duration of treatment (weeks) 6 Plan of Care Start Date 11/20/22 Plan of Care End Date 01/01/23 Therapeutic Interventions Therapeutic Interventions Gait Training,Home Exercise Program,Joint Mobilizations, Manual Therapy,Neuromuscular Re-education,Self-Care/Home Management,Therapeutic Activities,Therapeutic Exercises Modalities Cold Pack/Ice Massage,Electric Stimulation,Hot Packs Next Visit Focus/Plan Next Note Type Treatment Note Next Visit Plan 1 more appt scheduled with PT. REcheck active concentric ext / ADD and eccentric FF, ABD initiated in PT L shld . Pt's goals are to improve AROM for above shoulder height activity. POC: Continue left shoulder rehab focused on postural correction, scapulohumeral rhythm, ROM, and strengthening to improve shoulder function and decrease pain.
--- NOTE | 2022-12-12 15:58 | PT.OTN ---
Current Diagnoses Primary osteoarthritis, left shoulder (12/12/22) Primary osteoarthritis, unspecified shoulder (12/12/22) Unspecified rotator cuff tear or rupture of left shoulder, not specified as traumatic (12/12/22) Bicipital tendinitis, left shoulder (12/12/22) Impingement syndrome of left shoulder (12/12/22) Physical Therapy Treatment Note PT-OP-A Visit Information Start: 07/03/22 10:31 Freq: Status: Active Protocol: Document 12/12/22 14:36 AMB (Rec: 12/12/22 15:17 AMB [id number]) Out-Patient Physical Therapy Visit Information Visit Information Visit Type Treatment Note Visit Start Time 14:30 Visit Stop Time 15:15 Total Visit Minutes 45 Visit Number 29 PT-OP-B Current Condition Start: 07/03/22 10:31 Freq: Status: Active Protocol: Document 09/17/22 15:18 SAK (Rec: 09/17/22 16:06 SAK [id number]) Current Condition History of Current Condition Onset Date a few years ago Current Complaints L shoulder pain History of Current Condition Shoulder started hurting when using the walker due to avascular necrosis and hip surgery. Shoulder has been getting somewhat better with d /cing aspercreme (has excema) and the walker. Injection did help for about 3 weeks in April. Currently using SPC in L UE. Prior Treatments and Tests 1. High-grade partial- thickness tear of the distal supraspinatus tendon. There is mild supraspinatus muscle atrophy. 2. Mild infraspinatus and subscapularis tendinosis. 3. Subcoracoid bursitis. 4. Prwjbaqr-ce-qtplxy glenohumeral joint degeneration. 5. Posterior labral tear with paralabral cysts. PT-OP-C Subjective Start: 07/03/22 10:31 Freq: Status: Active Protocol: Document 12/12/22 14:36 AMB (Rec: 12/12/22 15:17 AMB [id number]) OP-PT Subjective Patient Comments Patient Comments Chayo PT-OP-F Manual Assessment Start: 07/03/22 10:31 Freq: Status: Active Protocol: Document 07/09/22 14:57 AMB (Rec: 07/09/22 15:04 AMB [id number]) Manual Assessments Soft Tissue Assessment Soft Tissue Mobility Assessment Tenderness over anterior shoulder over biceps tendons. No tenderness noted over scapula. Audible catches is shoulder when moving in and out of abduction. PT-OP-J Posture/Palpation/Skin Start: 07/03/22 10:31 Freq: Status: Active Protocol: Document 07/09/22 14:57 AMB (Rec: 07/09/22 15:04 AMB [id number]) Posture Evaluation Comments Posture Comments Forward shoulders, pt tends to let shoulder go up into shoulder elevation when using cane or when moving arm. PT-OP-K Range of Motion Start: 07/03/22 10:31 Freq: Status: Active Protocol: Document 12/05/22 14:32 SP (Rec: 12/05/22 15:22 SP [id number]) Shoulder Goniometric Range of Motion Shoulder Left Active Shoulder ROM WFL No Testing Position Sitting Flexion 152 Abduction 81 External Rotation at 0 degrees Abduction 82 Internal Rotation Behind Back (text) T11 Comments Seated L shld AROM 12/05/22: FF 152 (gained 10 deg) ABD (scaption): 81 deg ( decrease 4deg) ER:82 deg (gained 2 deg) IR: T11 (wiggles hand up back, gained superior from T12) PT-OP-M Strength Start: 07/03/22 10:31 Freq: Status: Active Protocol: Document 07/09/22 13:04 AMB (Rec: 07/09/22 14:28 AMB [id number]) Shoulder Strength Shoulder Manual Muscle Testing Right Flexion 3+ Fair+ Abduction (C5) 3- Fair- External Rotation 4- Good- Internal Rotation 4 Good Left Flexion 4- Good- Abduction (C5) 3- Fair- External Rotation 3+ Fair+ Internal Rotation 4 Good PT-OP-Q Treatments Start: 07/03/22 10:31 Freq: Status: Active Protocol: Document 12/12/22 14:30 AMB (Rec: 12/12/22 15:50 AMB [id number]) Cardio Equipment Upper Body Ergometer (UBE) Duration (Minutes) 6 RPM 100 Seat Position 15>13 Height 3 Other F/B 30 sec each direction alternating Therapeutic Exercises Sitting Exercises UT, LS stretching Side left Reps/Minutes 30 each Comments good feedback stretching posterior capsule stretch Reps/Minutes 2x30 scapular retraction Sitting Exercise Name seated shoulder posterior rolls/rows Side bilateral Resistance TB #2 Reps/Minutes 2x10 Comments good form, limited ER strength just resisted scap retract. Standing Exercises adduction Standing Exercise Name HEP reviewed: eccentric abd Side left Resistance Tb #2 Reps/Minutes x20 Comments good eccentric and little further abd elevation today felt shoulder extension Side left Resistance TB #2 Reps/Minutes x20 Comments cued elongation posture, scap set con/ecc t band ER Standing Exercise Name standing Side left Resistance orange- crepitis lessens with reps (challenge but good form small range) Equipment Used towel under arm Reps/Minutes x10 Comments tactil cue elbow at side, scap depression/retract improved less/no crunch Manual Therapy Treatment Soft Tissue Mobilization L shoulder Body Location L UT, LS, infraspinatus bicep Mobilization Type Strumming,Sustained Pressure, Other Intensity/Depth Moderate Body Position Sitting Comments manual and w/ FM PROM FF, serratus punch, ER PT-OP-T Assessment and Plan Start: 07/03/22 10:31 Freq: Status: Active Protocol: Document 12/12/22 14:36 AMB (Rec: 12/12/22 15:17 AMB [id number]) Physical Therapy Assessment Goals Three Impairment HEP Short Term Goal (STG) Chayo will be independent and consistent with a HEP to improve her strength and ROM. STG Duration goal met, ongoing progression Senior Living Goal (LTG) Patient to demonstrate at least 4+/5 muscle strength and ROM WNL to allow her to return to all prior activities 08/14/22: added seated FF, HABD , supine scaption. 08/17/22: added resisted add, lateral counter walking, supine resisted ER and serratus press LTG Duration NOT MET One Impairment ROM Short Term Goal (STG) Chayo will improve her left shoulder flexion to 160 degrees. 09/11: goal progress, improved to 160 with AAROM 10/09/22: 140 flexion, 130 ABD (modified), ER 74, T12 IR behind back. 11/06/22: 142 deg seated, 175 deg supine. 12/05/22: progressing 152 deg from 142 in October. STG Duration 4 weeks progressing 12/05/22 Building Materials Sales Attendant Goal (LTG) dDidi will improve her active shoulder abduction to at least 110 degrees. 08/14/22: seated 92 deg (AROM), supine 172 deg (AAROM) 09/06/22: L shld AROM seated: ABD 70 deg, FF 137 AROM 65 10/09/22: modified ABD 130 deg. 11/06/22: Modified ABD seated 85deg, supine 135 deg 11/20: 62 12/05/22: 81 deg deg AROM LTG Duration 10 weeks progressing 12/05/22 Assessment Summary Assessment Chayo has progressed with her physical therapy but continues to have shoulder pain with lifting the arm above shoulder height. She is feeling ready to d/c for now even though she continues to have pain and continue to work on her HEP. She is going to try to avoid putting a lot of pressure through her shoulder into her cane and knows she needs to continue to strengthen her hips and knees to do so. She may return to physical therapy in the future with a new referral as needed. Physical Therapy Plan Frequency and Duration Frequency of Treatment 1x/Week Duration of treatment (weeks) 6 Plan of Care Start Date 11/20/22 Plan of Care End Date 01/01/23 Therapeutic Interventions Therapeutic Interventions Gait Training,Home Exercise Program,Joint Mobilizations, Manual Therapy,Neuromuscular Re-education,Self-Care/Home Management,Therapeutic Activities,Therapeutic Exercises Modalities Cold Pack/Ice Massage,Electric Stimulation,Hot Packs Next Visit Focus/Plan Next Note Type Discharge Summary
== END 2022-12-13 11:26 | disposition home or self-care (01) ==
LOC: PHYS 14:30
PROVIDERS: Absent Provider Nurse Practitioner; Family Provider Nurse Practitioner; PCP Nurse Practitioner; Referring Provider Orthopaedic Surgery; Visit Provider Orthopaedic Surgery
DX: M75.42 Impingement syndrome of left shoulder (principal); M19.012 Primary osteoarthritis, left shoulder; M75.22 Bicipital tendinitis, left shoulder; M19.019 Primary osteoarthritis, unspecified shoulder; M75.102 Unspecified rotator cuff tear or rupture of left shoulder, not specified as traumatic
CPT/HCPCS: 97110; 97140; 97161

== ENCOUNTER → 2023-03-26 16:02 | Outpatient (CLI) | payer MEDICARE, OTHER, SELFPAY ==
[2021-07-28 17:31] VITALS: BMI 40.7
--- NOTE | 2023-03-26 | DI.MG.S_ITS ---
BILATERAL DIGITAL SCREENING MAMMOGRAM 3D/2D WITH CAD POST LUMPECTOMY: 03/26/2023 CLINICAL: Routine screening. Personal history of right breast cancer. Family history of breast cancer. Comparison is made to exams dated: 02/02/2022 mammogram, 01/31/2021 mammogram, 01/27/2020 mammogram, 03/04/2018 mammogram, and 03/26/2018 mammogram - [facility]. There are scattered areas of fibroglandular density in both breasts (category b / 25%-50% glandular tissue). Current study was also evaluated with a Computer Aided Detection (CAD) system. There are benign post operative findings in the right breast. No significant masses, calcifications, or other findings are seen in either breast. There has been no significant interval change. IMPRESSION: BENIGN There is no mammographic evidence of malignancy. A 1 year screening mammogram is recommended. This exam was interpreted at Station ID: [id number]. NOTE: For mammograms, a report in lay terms will be sent to the patient. Approximately 15% of breast malignancies will not be visualized mammographically. In the management of a palpable breast mass, a negative mammogram must not discourage biopsy of a clinically suspicious lesion. Electronically Signed By: Neto yañez/norma:03/27/2023 11:36:45 copy to: IVONNE EDGAR letter sent: Normal Exam ACR BI-RADS Category 2: Benign Finding(s) [id number]
== END ==
PROVIDERS: Family Provider Nurse Practitioner; PCP Nurse Practitioner; Referring Provider Nurse Practitioner; Visit Provider Nurse Practitioner
DX: Z12.31 Encounter for screening mammogram for malignant neoplasm of breast (principal); Z80.3 Family history of malignant neoplasm of breast; Z85.3 Personal history of malignant neoplasm of breast
CPT/HCPCS: 77063; 77067

== ENCOUNTER → 2023-05-28 11:43 | Outpatient (CLI) | payer MEDICARE, OTHER, SELFPAY ==
[2021-07-28 17:31] VITALS: BMI 40.7
[2023-05-28 12:25] LABS: BUN Creatinine Ratio 37.7 (6-22); Blood Urea Nitrogen 43 mg/dL (7-17); Calcium 9.9 mg/dL (8.4-10.2); Carbon Dioxide 23 mmol/L (22-32); Chloride 105 mmol/L (98-107); Estimated Glomerular Filt Rate 51 mL/min (>60); Glucose 120 mg/dL (80-110); HEMOLYSIS < 15 (0-50); Magnesium 1.7 mg/dL (1.6-2.3); Sodium 135 mmol/L (137-145)
[2023-05-28 12:26] LABS: Potassium 5.8 mmol/L (3.4-5.1)
== END ==
PROVIDERS: Family Provider Nurse Practitioner; PCP Nurse Practitioner; Referring Provider Nurse Practitioner; Visit Provider Nurse Practitioner
DX: E87.5 Hyperkalemia (principal); N18.9 Chronic kidney disease, unspecified
CPT/HCPCS: 36415; 80048; 83735

== ENCOUNTER → 2023-06-01 10:45 | Outpatient (CLI) | payer MEDICARE, OTHER, SELFPAY ==
[2021-07-28 17:31] VITALS: BMI 40.7
[2023-06-01 13:15] LABS: Alanine Aminotransferase 23 IU/L (<35); Albumin 3.9 g/dL (3.5-5.0); Albumin Globulin Ratio 1.3 (1.0-2.8); Alkaline Phosphatase 69 U/L (38-126); Aspartate Aminotransferase 24 IU/L (14-36); BUN Creatinine Ratio 39.2 (6-22); Bilirubin Total 0.8 mg/dL (0.2-1.3); Blood Urea Nitrogen 38 mg/dL (7-17); Calcium 9.2 mg/dL (8.4-10.2); Carbon Dioxide 24 mmol/L (22-32); Chloride 106 mmol/L (98-107); Estimated Glomerular Filt Rate > 60 mL/min (>60); Globulin 2.9 g/dL (1.7-4.1); Glucose 117 mg/dL (80-110); HEMOLYSIS < 15 (0-50); Magnesium 1.5 mg/dL (1.6-2.3); Potassium 4.8 mmol/L (3.4-5.1); Sodium 138 mmol/L (137-145); Total Protein 6.8 g/dL (6.3-8.2)
== END ==
PROVIDERS: Family Provider Nurse Practitioner; PCP Nurse Practitioner; Referring Provider Nurse Practitioner; Visit Provider Nurse Practitioner
DX: E87.5 Hyperkalemia (principal)
CPT/HCPCS: 36415; 80053; 83735

== ENCOUNTER → 2023-06-27 13:48 | Outpatient (CLI) | payer MEDICARE, OTHER, SELFPAY ==
[2021-07-28 17:31] VITALS: BMI 40.7
== END ==
PROVIDERS: Family Provider Nurse Practitioner; PCP Nurse Practitioner; Referring Provider Nurse Practitioner; Visit Provider Nurse Practitioner
DX: I10 Essential (primary) hypertension (principal); E83.42 Hypomagnesemia; N18.9 Chronic kidney disease, unspecified
CPT/HCPCS: 36415; 83735

== ENCOUNTER → 2024-03-27 12:43 | Outpatient (CLI) | payer MEDICARE, OTHER, SELFPAY ==
[2021-07-28 17:31] VITALS: BMI 40.7
--- NOTE | 2024-03-27 12:44 | DI.MG.S_ITS ---
BILATERAL DIGITAL SCREENING MAMMOGRAM 3D/2D WITH CAD: 03/27/2024 CLINICAL: Routine screening. Personal history of right breast cancer. Comparison is made to exams dated: 03/26/2023 mammogram, 02/02/2022 mammogram, 01/31/2021 mammogram, and 01/27/2020 mammogram - [facility]. There are scattered areas of fibroglandular density (category b / 25%-50% glandular tissue). Current study was also evaluated with a Computer Aided Detection (CAD) system. There are benign post operative findings in the right breast. No significant masses, calcifications, or other findings are seen in either breast. There has been no significant interval change. IMPRESSION: BENIGN There is no mammographic evidence of malignancy. A 1 year screening mammogram is recommended. This exam was interpreted at Station ID: [id number]. NOTE: For mammograms, a report in lay terms will be sent to the patient. Approximately 15% of breast malignancies will not be visualized mammographically. In the management of a palpable breast mass, a negative mammogram must not discourage biopsy of a clinically suspicious lesion. Electronically Signed By: Neto yañez/norma:03/27/2024 14:02:18 copy to: IVONNE EDGAR letter sent: Normal Exam ACR BI-RADS Category 2: Benign
== END ==
PROVIDERS: Family Provider Nurse Practitioner; PCP Internal Medicine; Referring Provider Internal Medicine; Visit Provider Internal Medicine
DX: Z12.31 Encounter for screening mammogram for malignant neoplasm of breast (principal); Z85.3 Personal history of malignant neoplasm of breast
CPT/HCPCS: 77063; 77067

== ENCOUNTER → 2024-08-20 13:40 | Outpatient (CLI) | payer MEDICARE, OTHER, SELFPAY ==
[2021-07-28 17:31] VITALS: BMI 40.7
[2024-08-20 15:00] LABS: Creatinine Urine Random 121.73 mg/dL
[2024-08-20 15:04] LABS: Cholesterol 233 mg/dL (140-199); HDL Cholesterol 84 mg/dL (40-60); LDL Cholesterol Calculated 119 mg/dL (<100); Triglycerides 148 mg/dL (35-150)
[2024-08-20 15:13] LABS: Microalbumin Urine Random 30.8 mg/dL (0-1.6)
[2024-08-20 15:24] LABS: Free T3, Triiodothyronine Free 3.88 pg/mL (2.77-5.27); Free T4, Direct Thyroxine 1.06 ng/dL (0.78-2.19)
[2024-08-20 15:38] LABS: Thyroid Stimulating Hormone 1.54 uIU/mL (0.47-4.68)
== END ==
PROVIDERS: Family Provider Nurse Practitioner; PCP Internal Medicine; Referring Provider Nurse Practitioner; Visit Provider Nurse Practitioner
DX: R73.9 Hyperglycemia, unspecified (principal); E78.5 Hyperlipidemia, unspecified; N18.9 Chronic kidney disease, unspecified; M85.80 Other specified disorders of bone density and structure, unspecified site; Z79.899 Other long term (current) drug therapy; I12.9 Hypertensive chronic kidney disease with stage 1 through stage 4 chronic kidney disease, or unspecified chronic kidney disease
CPT/HCPCS: 36415; 80061; 82043; 82570; 83036; 84439; 84443; 84481

== ENCOUNTER 2024-09-28 11:21 | Emergency (ER) | payer MEDICARE, OTHER, SELFPAY ==
[2021-07-28 17:31] VITALS: BMI 40.7
[2024-09-28 11:25] VITALS: BP 174/71; PULSE 64; RESP 15; TEMP 36.7; O2SAT 97; BMI 40.7
--- NOTE | 2024-09-28 11:57 | ED_ITS ---
HPI - Skin/Abscess/Foreign Bdy <Tammy Gary PA-C - Last Filed: 09/28/24 12:52> General Chief complaint: Skin/Abscess/Foreign Body Stated complaint: Right ankle pain. Hot to the touch Time Seen by Provider: 09/28/24 11:31 Source: patient Mode of arrival: Wheelchair Limitations: no limitations History of Present Illness HPI narrative: 74-year-old female presents to the ED with 4 days of right inner ankle rash, swelling. Patient states that she spent the day prior to the start of the rash standing for several hours. Patient did not notice any insect bites or other injuries. No trauma. Patient states that the rash feels tight and warm. It is not painful or itchy. No numbness, tingling, weakness. Patient is able to bear weight and walk. No fever, chills. Related Data Home Medications Medication Instructions Recorded Confirmed cholecalciferol (vitamin D3) 25 1,000 unit PO DAILY ##0 10/24/10 08/24/24 mcg (1,000 unit) tablet (Vitamin D3) Neurobrite See Rx Instructions .Route .COMPLEX 09/12/23 08/24/24 Previous Rx's Medication Instructions Recorded aspirin 81 mg tablet,delayed 81 mg PO BID #60 tabs 07/29/21 release Disabled Parking Permit See Rx Instructions .Route 09/26/21 .COMPLEX #1 unit magnesium oxide 500 mg capsule 500 mg PO DAILY #30 caps 10/31/21 triamcinolone acetonide 0.1 % 1 applic topical BID PRN rash #80 07/09/22 topical cream grams letrozole 2.5 mg tablet 2.5 mg PO DAILY #90 tabs 08/02/22 Disabled Parking Permit See Rx Instructions .Route 09/24/22 .COMPLEX #1 unit amlodipine 10 mg tablet 10 mg PO DAILY #90 tabs 08/24/24 metoprolol succinate 50 mg 50 mg PO DAILY #90 tabs 08/24/24 tablet,extended release 24 hr valsartan 320 mg tablet 320 mg PO DAILY #90 tabs 08/24/24 cephalexin 500 mg capsule 500 mg PO QID 5 days #20 caps 09/28/24 Allergies Allergy/AdvReac Type Severity Reaction Status Date / Time adhesive [ADHESIVE] Allergy Unknown Verified 09/28/24 11:29 triprolidine [TRIPROLIDINE] Allergy Unknown UNKNOWN Verified 09/28/24 11:29 atorvastatin AdvReac Intermediate Balance Verified 09/28/24 11:29 issues with fall. ezetimibe [EZETIMIBE] AdvReac Unknown (ZETIA) Verified 09/28/24 11:29 MUSCLE CRAMPS, WEAK Review of Systems <Tammy Gary PA-C - Last Filed: 09/28/24 12:52> Constitutional Constitutional: Denies chills, Denies fatigue, Denies fever(s), Denies frequent falls, Denies lethargy and Denies weakness Eyes Eyes: Denies change in vision, Denies eye discharge, Denies irritation and Denies loss of vision ENT Ears, Nose, Mouth, and Throat: Denies change in voice, Denies dizziness, Denies neck pain, Denies sore throat and Denies throat swelling Cardiovascular Cardiovascular: Denies chest pain, Denies irregular heart rhythm, Denies lightheadedness, Denies palpitations, Denies dyspnea, Denies dyspnea on exertion and Denies orthopnea Respiratory Respiratory: Denies cough, Denies dyspnea, Denies dyspnea on exertion and Denies wheezing Gastrointestinal Gastrointestinal: Denies abdominal pain, Denies change in bowel habits, Denies diarrhea, Denies nausea and Denies vomiting Musculoskeletal Musculoskeletal: Denies neck pain and Denies numbness Integumentary/Breasts Skin/Breast: Denies pruritus, Denies erythema, Denies rash and Denies wounds Comments: Redness, tightness, swelling to right inner ankle area Neurologic Neurologic: Denies behavioral changes, Denies confusion, Denies dizziness, Denies frequent falls, Denies loss of vision, Denies numbness and Denies weak ness Psychiatric Psychiatric: Denies anxiety, Denies behavioral changes, Denies confusion, Denies depression, Denies homicidal ideation and Denies suicidal ideation Endocrine Endocrine: Denies fatigue, Denies flushing and Denies palpitations Hematologic/Lymphatic Hematologic/Lymphatic: Denies easy bruising Allergic/Immunologic Allergic/Immunologic: Denies urticaria, Denies throat swelling and Denies w heezing Patient History <Tammy Gayr PA-C - Last Filed: 09/28/24 12:52> Medical History Morbid obesity Chronic renal failure, stage 3a Anemia of chronic disease Iliotibial band syndrome, right leg Bilateral bunions Chronic pain of both knees Chronic low back pain Neck stiffness Numbness and tingling in both hands Flat feet, bilateral Right knee pain Hyperglycemia Transaminitis Hyperlipidemia Breast cancer, right breast Obesity History of antineoplastic chemotherapy Ovarian carcinoma (~2005) HTN (hypertension) History of malignant neoplasm of ovary in adulthood Surgical History Status post right hip replacement History of lumpectomy of right breast (05/27/18) History of colonoscopy History of incisional hernia repair History of total abdominal hysterectomy and bilateral salpingo-oophorectomy Family History Father Hypertension Mother Breast cancer Social History marital status: household members: spouse Smoking Status: Never smoker alcohol intake: current substance use type: does not use Smoking Status: Never smoker alcohol intake frequency: 0-2 drinks per day Exam <Tammy Gary PA-C - Last Filed: 09/28/24 12:52> Narrative Exam Narrative: Const General:?cooperative, healthy appearing and comfortable [facility] Head:?normal to inspection Ears:?hearing grossly normal bilaterally Nose:?external nose normal Face and sinus:?normal facial exam and sinuses nontender Mouth:?oral mucosae normal Throat:?posterior oropharynx normal Eyes General:?appearance normal, both eyes and all related structures Neck Neck:?normal visual inspection and no lymphadenopathy noted Resp Effort & Inspection:?normal respiratory effort Auscultation:?clear to auscultation bilaterally Cardio Rate:?regular rate Rhythm:?regular rhythm Musculoskeletal/integumentary There appears to be an erythematous rash to the medial region of the right ankle, starting at the ankle area and going up to midcalf. There is some swelling, tenderness. Patient is able to bear weight and walk. Neurovascularly intact. Neuro General:?patient alert, patient awake and patient oriented x3 Initial Vital Signs Initial Vital Signs: Vital Signs Temperature 98.1 F 09/28/24 11:25 Pulse Rate 64 09/28/24 11:25 Respiratory Rate 15 09/28/24 11:25 Blood Pressure 174/71 H 09/28/24 11:25 Pulse Oximetry 97 09/28/24 11:25 Oxygen Delivery Method Room Air 09/28/24 11:25 <Giuliana Lozano DO - Last Filed: 09/29/24 07:35> Initial Vital Signs Initial Vital Signs: Vital Signs Temperature 98.1 F 09/28/24 11:25 Pulse Rate 64 09/28/24 11:25 Respiratory Rate 15 09/28/24 11:25 Blood Pressure 174/71 H 09/28/24 11:25 Pulse Oximetry 97 09/28/24 11:25 Oxygen Delivery Method Room Air 09/28/24 11:25 Course <Tammy Gary PA-C - Last Filed: 09/28/24 12:52> Orders Ordered: ED Orders 09/28/24 12:04 XR ankle RT min 3V Stat XR tibia fibula RT 2V Stat Vital Signs Vital signs: Vital Signs - 8 hr 09/28/24 11:25 Temperature 98.1 F Pulse Rate 64 Respiratory Rate 15 Blood Pressure 174/71 H Pulse Oximetry 97 Oxygen Delivery Method Room Air <DO Antelmo Gonzalez Last Filed: 09/29/24 07:35> Orders Ordered: ED Orders 09/28/24 12:04 XR ankle RT min 3V Stat XR tibia fibula RT 2V Stat Vital Signs Vital signs: Vital Signs - 8 hr 09/28/24 11:25 Temperature 98.1 F Pulse Rate 64 Respiratory Rate 15 Blood Pressure 174/71 H Pulse Oximetry 97 Oxygen Delivery Method Room Air MDM - Skin/Abscess/Foreign Bdy <JO Chester Last Filed: 09/28/24 12:52> MDM Narrative Medical decision making narrative: 74-year-old female presents to the ED with 4 days of right inner ankle rash, swelling. X-ray was obtained which shows no acute bony abnormality. Patient's symptoms are most consistent with a cellulitis of the right lower leg. Prescribed antibiotics. Recommend follow-up with PCP as soon as possible. ED return precautions discussed with patient. Patient verbalized understanding. Medical records reviewed: Yes Discharge Plan Departure Patient Disposition: Home Clinical Impression: Cellulitis Instructions: DI for Cellulitis -- Adult Activity Restrictions/Additional Instructions: You were evaluated in the ED today for redness and rash to your right ankle. The x-rays were normal. It appears that your symptoms are most consistent with a cellulitis which is a skin infection. You are being prescribed antibiotics. Please take them as prescribed. Please follow-up with your PCP as soon as possible. Return to the ED if you have worsening symptoms, fever, chills. Prescriptions: New cephalexin 500 mg capsule 500 mg PO QID 5 Days Qty: 20 0RF No Action cholecalciferol (vitamin D3) [Vitamin D3] 25 mcg (1,000 unit) Tablet 1,000 unit PO DAILY Qty: 0 Disabled Parking Permit See Rx Instructions .ROUTE .COMPLEX Qty: 1 0RF Rx Instructions: I find this patient to be medically disabled and qualify for disabled parking as indicated and signed on the accompanying disabled parking application for individuals. Disabled Parking Permit See Rx Instructions .ROUTE .COMPLEX Qty: 1 0RF Rx Instructions: I find this patient to be medically disabled and qualify for disabled parking as indicated and signed on the accompanying disabled parking application for individuals. Neurobrite See Rx Instructions .ROUTE .COMPLEX Rx Instructions: Take 2 daily; magnesium oxide 500 mg capsule 500 mg PO DAILY Qty: 30 1RF Rx Instructions: Take 1 capsule daily for magnesium supplementation triamcinolone acetonide 0.1 % cream 1 applic topical BID PRN (Reason: rash) Qty: 80 5RF Rx Instructions: for 2 weeks at a time valsartan 320 mg tablet 320 mg PO DAILY Qty: 90 3RF metoprolol succinate 50 mg tablet extended release 24 hr 50 mg PO DAILY Qty: 90 3RF amlodipine 10 mg tablet 10 mg PO DAILY Qty: 90 3RF aspirin 81 mg Tablet,Delayed Release (Dr/Ec) 81 mg PO BID Qty: 60 0RF letrozole 2.5 mg Tablet 2.5 mg PO DAILY Qty: 90 3RF Referrals: Dioni Buck MD [Primary Care Provider] - Stand Alone Forms: Patient Portal/API/Survey ED Sign-out <Giuliana Lozano DO - Last Filed: 09/29/24 07:35> Cosign ED Attending [place]akes[place]iaature Attestation: I was immediately available in the department for consultation.
--- NOTE | 2024-09-28 12:04 | DI.RAD.S_ITS ---
PROCEDURE: XR TIBIA FUBULA RT 2V INDICATIONS: erythema, swelling TECHNIQUE: 2 views of the tibia and fibula were acquired. COMPARISON: None. FINDINGS: Bones: No fractures or dislocations. No suspicious bony lesions. Soft tissues: No suspicious soft tissue calcifications or masses. IMPRESSION: No acute bony abnormality. Dictated by: Ney Cullen M.D. on 09/28/2024 at 12:37 Approved by: Ney Cullen M.D. on 09/28/2024 at 12:37
--- NOTE | 2024-09-28 12:04 | DI.RAD.S_ITS ---
PROCEDURE: XR ANKLE RT MIN 3V INDICATIONS: erythema, swelling TECHNIQUE: 3 views of the ankle were acquired. COMPARISON: None. FINDINGS: Bones: No fractures or dislocations. Ankle mortise is normally aligned. No suspicious bony lesions. Midfoot and forefoot osteoarthritis. Soft tissues: Moderate tibiotalar joint effusion. Achilles tendon appears normal. Generalized ankle swelling. IMPRESSION: No acute bony abnormality . Dictated by: Ney Cullen M.D. on 09/28/2024 at 12:36 Approved by: Ney Cullen M.D. on 09/28/2024 at 12:37
[2024-09-28 12:48] VITALS: BP 181/83; PULSE 62; RESP 18; O2SAT 96
== END 2024-09-28 12:48 | disposition home or self-care (01) ==
PROVIDERS: Emergency Provider Student in an Organized Health Care Education/Training Program; PCP Internal Medicine
DX: L03.115 Cellulitis of right lower limb (principal)
CPT/HCPCS: 73590; 73610; 99281; 99283

== ENCOUNTER → 2025-04-02 14:56 | Outpatient (CLI) | payer MEDICARE, OTHER, SELFPAY ==
[2021-07-28 17:31] VITALS: BMI 40.7
--- NOTE | 2025-04-02 14:59 | DI.MG.S_ITS ---
MM screening mammo BI: 04/02/2025. BI-RADS: 0 CLINICAL: 75-year old female for bilateral screening mammogram. No Tyrer-Cuzick risk score calculation due to the patient's personal history of breast cancer. Patient reports a history of right breast carcinoma diagnosed at age 68. Status-post right lumpectomy with chemotherapy. Current reported family history of breast cancer: mother and paternal aunt. Personal history of ovarian cancer. The patient had a prior right breast biopsy. PRIOR EXAMS 03/27/2024, 03/26/2023, 02/02/2022, 01/31/2021. MAMMOGRAPHY TECHNIQUE: 2D and 3D (tomosynthesis) digital mammographic views obtained, with additional images as needed for full coverage. Current study was also evaluated with a Computer Aided Detection (CAD) system. DENSITY B. There are scattered areas of fibroglandular density. MAMMOGRAPHY FINDINGS Right: Benign-appearing post-surgical changes noted on the right. There are no suspicious masses, calcifications, or other findings in the breast. Left: Lower Central, Posterior depth: Focal asymmetry needing additional imaging evaluation. This could represent a dermal lesion. IMPRESSION: Right * No evidence of malignancy with benign findings. Left (Asymmetry): Lower Central, Posterior depth * Incomplete - focal asymmetry needing additional imaging evaluation. RECOMMENDATIONS Left: Lower Central, Posterior depth * Further evaluation with diagnostic mammography and diagnostic ultrasound. Ultrasound to be performed only if needed. OVERALL ASSESSMENT CATEGORY BI-RADS-0: Incomplete - Need Additional Imaging Evaluation. ELECTRONICALLY SIGNED: Sheila Vines M.D. on 04/04/2025 at 10:53:08 PM PT Interpreting Station ID: [id number]
== END ==
PROVIDERS: PCP Internal Medicine; Referring Provider Internal Medicine Hematology & Oncology; Visit Provider Internal Medicine
DX: Z12.31 Encounter for screening mammogram for malignant neoplasm of breast (principal); R92.8 Other abnormal and inconclusive findings on diagnostic imaging of breast; Z85.3 Personal history of malignant neoplasm of breast; Z85.43 Personal history of malignant neoplasm of ovary; Z80.3 Family history of malignant neoplasm of breast
CPT/HCPCS: 77063; 77067

== ENCOUNTER → 2025-04-06 11:25 | Outpatient (CLI) | payer MEDICARE, OTHER, SELFPAY ==
[2021-07-28 17:31] VITALS: BMI 40.7
[2025-04-06 12:56] LABS: Add Manual Diff / Slide Review NO; Hematocrit 36.1 % (36-46); Hemoglobin 12.1 g/dL (12.0-16.0); Lymphocytes Absolute Auto 1300 /uL (1100-4500); Mean Corpuscular HGB Conc 33.6 % (30-36); Mean Corpuscular Hemoglobin 32.4 PG (26-34); Mean Corpuscular Volume 96.4 fL (80-100); Platelet Count 218 X10^3/uL (150-400)
[2025-04-06 13:18] LABS: Alanine Aminotransferase 18 IU/L (<35); Albumin 4.3 g/dL (3.5-5.0); Albumin Globulin Ratio 1.6 (1.0-2.8); Alkaline Phosphatase 79 U/L (38-126); Blood Urea Nitrogen 48 mg/dL (7-17); Calcium 9.3 mg/dL (8.4-10.2); Carbon Dioxide 21 mmol/L (22-32); Chloride 103 mmol/L (98-107); Estimated Glomerular Filt Rate 48 mL/min (>60); Globulin 2.7 g/dL (1.7-4.1); Glucose 109 mg/dL (70-99); HEMOLYSIS < 15 (0-50); Sodium 134 mmol/L (137-145); Total Protein 7.0 g/dL (6.3-8.2)
[2025-04-06 13:33] LABS: Potassium 5.6 mmol/L (3.4-5.1)
== END ==
PROVIDERS: PCP Internal Medicine; Referring Provider Internal Medicine Hematology & Oncology; Visit Provider Internal Medicine Hematology & Oncology
DX: C50.311 Malignant neoplasm of lower-inner quadrant of right female breast (principal); D63.1 Anemia in chronic kidney disease; M85.852 Other specified disorders of bone density and structure, left thigh; N18.31 Chronic kidney disease, stage 3a; Z17.0 Estrogen receptor positive status [ER+]
CPT/HCPCS: 36415; 80053; 85025

== ENCOUNTER → 2025-05-05 12:38 | Outpatient (CLI) | payer MEDICARE, OTHER, SELFPAY ==
[2021-07-28 17:31] VITALS: BMI 40.7
--- NOTE | 2025-05-05 12:39 | DI.MG.S_ITS ---
MM diagnostic mammo unilat LT: 05/05/2025. BI-RADS: 2 CLINICAL: 75-year old female for left diagnostic mammogram that is a recall from screening on 04/02/2025. No Tyrer-Cuzick risk score calculation due to the patient's personal history of breast cancer. Patient reports a history of right breast carcinoma diagnosed at age 68. Status-post right lumpectomy with chemotherapy. Current reported family history of breast cancer: mother and paternal aunt. Personal history of ovarian cancer. The patient reports testing negative for BRCA gene mutation. The patient had a prior right breast biopsy. PRIOR EXAMS 04/02/2025, 03/27/2024, 03/26/2023, 02/02/2022, 01/31/2021, 01/27/2020, 03/04/2018. MAMMOGRAPHY TECHNIQUE: 2D and 3D (tomosynthesis) digital mammographic views obtained, with additional images as needed for full coverage. Current study was also evaluated with a Computer Aided Detection (CAD) system. DENSITY Left: B. There are scattered areas of fibroglandular density. MAMMOGRAPHY FINDINGS Left: Lower Central: The previously seen focal asymmetry is no longer visualized with additional views, and likely represents superimposition. There are no suspicious masses, calcifications, or other findings in the breast. IMPRESSION: Left * No evidence of malignancy with benign findings. RECOMMENDATIONS Bilateral * Annual screening mammography. COMMENTS: Findings and recommendations were conveyed to the patient during today's evaluation. OVERALL ASSESSMENT CATEGORY BI-RADS-2: Benign. The [employer] recommends annual screening mammography beginning at age 40 for women with average risk of breast cancer. ELECTRONICALLY SIGNED: Sheila Vines M.D. on 05/05/2025 at 02:01:36 PM PT Interpreting Station ID: [id number]
== END ==
LOC: MAMMO 12:39
PROVIDERS: PCP Internal Medicine; Referring Provider Internal Medicine; Visit Provider Internal Medicine
DX: R92.8 Other abnormal and inconclusive findings on diagnostic imaging of breast (principal); Z85.3 Personal history of malignant neoplasm of breast; Z85.43 Personal history of malignant neoplasm of ovary; Z80.3 Family history of malignant neoplasm of breast
CPT/HCPCS: 77065; G0279